=== PATIENT | male | born 1960 | race American Indian/Alaskan Native ===

== ENCOUNTER 2020-01-07 06:05 | Emergency (ER) | payer MEDICARE ==
[2020-01-07 07:07] LABS: Bilirubin,Urine NEG (Negative); Blood,Urine SM (Negative); Color,Urine Straw (Yellow); Urobilinogen,Urine < 2.0 mg/dL (<2.0)
[2020-01-07 07:08] LABS: Mucus,Urine FEW /HPF; WBC,Urine < 1.0 /HPF (0.0-6.0)
--- NOTE | 2020-01-07 07:51 | Emergency Department Report ---
ED Male HPI - General Chief complaint: Urogenital-Male Stated complaint: URINE RETENTION Time Seen by Provider: 01/07/20 07:46 Source: patient, EMS Mode of arrival: Stretcher Limitations: Physical Limitation - History of Present Illness Initial comments: 59-year-old male presents to ED with difficulty urinating. Patient states this began earlier this month. Patient reports he was told that he has some chronic kidney disease at [place]. Patient denies decrease in urine output, however reports that he is having difficulty with actual urination. He reports that his bladder gets full, but he has to force the urine out. Patient has not had complete urinary retention yet. -: week(s) (3) Severity: moderate Consistency: intermittent Improves with: none Worsens with: urination denies other symptoms - Related Data Previous Rx's Medication Instructions Recorded Last Taken Type Tamsulosin [Flomax] 0.4 mg PO QDAY #30 cap 01/07/20 Unknown Rx Allergies Allergy/AdvReac Type Severity Reaction Status Date / Time No Known Allergies Allergy Verified 01/07/20 06:27 ED Review of Systems ROS: Stated complaint: URINE RETENTION Other details as noted in HPI Comment: All other systems reviewed and negative Constitutional: denies: chills, fever Gastrointestinal: denies: abdominal pain Genitourinary: other (Reports difficulty urinating) ED Past Medical Hx - Past Medical History Previous Medical History?: Yes Hx Hypertension: Yes Hx CVA: Yes (left sided weakness) Hx Renal Disease: Yes (not on dialyisis) - Surgical History Past Surgical History?: Yes Hx Open Heart Surgery: Yes (double bypass) - Social History Smoking Status: Current Every Day Smoker Substance Use Type: Alcohol, Marijuana - Medications Home Medications: Home Medications Medication Instructions Recorded Confirmed Last Taken Type Tamsulosin [Flomax] 0.4 mg PO QDAY #30 cap 01/07/20 Unknown Rx ED Physical Exam - General Limitations: Physical Limitation ED Course Vital Signs 01/07/20 01/07/20 01/07/20 06:18 06:33 06:45 Temperature 98.7 F Pulse Rate 71 62 Respiratory 18 18 19 Rate Blood Pressure 186/104 189/95 O2 Sat by Pulse 97 100 98 Oximetry 01/07/20 01/07/20 01/07/20 06:47 07:00 07:15 Temperature Pulse Rate 58 L 61 Respiratory 16 18 20 Rate Blood Pressure 187/94 194/98 O2 Sat by Pulse 100 99 99 Oximetry 01/07/20 01/07/20 07:31 07:45 Temperature Pulse Rate 66 62 Respiratory 23 22 Rate Blood Pressure 177/98 186/97 O2 Sat by Pulse 100 91 Oximetry ED Medical Decision Making - Medical Decision Making 59-year-old male with likely an enlarged prostate. Patient does not have full urinary retention, however has some difficulty initiating urine stream. Negative for any evidence of UTI. Patient given prescription for Flomax. Urology follow-up advised. Return precautions given. - Differential Diagnosis BPH, UTI Critical care attestation.: If time is entered above; I have spent that time in minutes in the direct care of this critically ill patient, excluding procedure time. ED Disposition Clinical Impression: Enlarged prostate with urinary obstruction Disposition: TO HOME OR SELFCARE Is pt being admited?: No Condition: Stable Instructions: Urinary Retention in Men (ED), Benign Prostatic Hypertrophy (ED) Prescriptions: Tamsulosin [Flomax] 0.4 mg PO QDAY #30 cap Referrals: ALANNA WRAY MD [Primary Care Provider] - 3-5 Days TERRY PAULINO MD [Staff Physician] - 3-5 Days [facility] [Provider Group] - 3-5 Days Time of Disposition: 07:51
[2020-01-07 08:05] VITALS: BP 186/97
== END 2020-01-07 08:20 | disposition home or self-care (01) ==
LOC: ED 06:05
DX: N40.0 Benign prostatic hyperplasia without lower urinary tract symptoms (principal); I10 Essential (primary) hypertension; F17.200 Nicotine dependence, unspecified, uncomplicated; F12.10 Cannabis abuse, uncomplicated; Z86.73 Personal history of transient ischemic attack (TIA), and cerebral infarction without residual deficits; Z87.448 Personal history of other diseases of urinary system; Z98.890 Other specified postprocedural states; Z79.899 Other long term (current) drug therapy
CPT/HCPCS: 81001

== ENCOUNTER 2020-03-21 16:35 | Emergency (ER) | payer MEDICARE ==
--- NOTE | 2020-03-21 17:24 | Emergency Department Report ---
ED General Adult HPI - General Chief complaint: Urogenital-Male Stated complaint: LEFT BUTTOCK DECUBITIS ULCER Time Seen by Provider: 03/21/20 17:01 Source: patient, EMS Mode of arrival: Stretcher Limitations: Physical Limitation - History of Present Illness Initial comments: 59-year-old male with a past medical history of CVA with residual left-sided w eakness, hypertension, and chronic renal insufficiency presents to the hospital with several complaints. Complaint #1 swelling to left inguinal area, complaint #2: Bleeding from buttock wound, and complaint #3 cough x3 days Complaint #1 left inguinal swelling Patient has noticed swelling to his left suprapubic area for the past 3 days that has been progressively worsening. Pain worsens with movement of the left leg. He denies fever, nausea, vomiting, abdominal pain, or constipation. No history of trauma. No dysuria Complaint #2 bleeding from buttocks wound Today sister noted that there was blood on her toilet seat after the patient used the bathroom. She looked at his buttock area and noticed a wound. Patient denies melena, hematochezia, blood in the toilet bowl, or hematuria. He also denies pain but has decreased sensation on the left side secondary to previous CVA. He does report a previous history of GI bleed Complaint #3 cough x3 days Patient complains of what he describes as a mild nonproductive cough for the last 3 days with some chest congestion. Denies shortness of breath, chest pain, loss of sense of taste or smell or fever. - Related Data Previous Rx's Medication Instructions Recorded Last Taken Type Tamsulosin [Flomax] 0.4 mg PO QDAY #30 cap 01/07/20 Unknown Rx Bacitracin Zinc Oint [Antibiotic 1 applicatio TP BID #1 tube 03/21/20 Unknown Rx Oint] Benzonatate [Tessalon Perles] 100 mg PO Q8HR PRN #20 capsule 03/21/20 Unknown Rx Allergies Allergy/AdvReac Type Severity Reaction Status Date / Time No Known Allergies Allergy Verified 03/21/20 16:58 ED Review of Systems ROS: Stated complaint: LEFT BUTTOCK DECUBITIS ULCER Other details as noted in HPI Comment: All other systems reviewed and negative ED Past Medical Hx - Past Medical History Previous Medical History?: Yes Hx Hypertension: Yes Hx CVA: Yes (left sided weakness) Hx Renal Disease: Yes (not on dialyisis) - Surgical History Past Surgical History?: Yes Hx Open Heart Surgery: Yes (double bypass) Additional Surgical History: Thoracic aortic stent graft in place in the aortic arch and descending thoracic. aorta. - Social History Smoking Status: Current Every Day Smoker Substance Use Type: None - Medications Home Medications: Home Medications Medication Instructions Recorded Confirmed Last Taken Type Tamsulosin [Flomax] 0.4 mg PO QDAY #30 cap 01/07/20 Unknown Rx Bacitracin Zinc Oint [Antibiotic 1 applicatio TP BID #1 tube 03/21/20 Unknown Rx Oint] Benzonatate [Tessalon Perles] 100 mg PO Q8HR PRN #20 capsule 03/21/20 Unknown Rx ED Physical Exam - General Limitations: Physical Limitation - Other Other exam information: General: No acute distress Head: Atraumatic Eyes: normal appearance ENT: Moist mucous membranes Neck: Normal appearance, no midline tenderness Chest: Clear to auscultation bilaterally CV: Regular rate and rhythm Abdomen: Soft, normal bowel sounds, nontender, nondistended, no rebound or guarding. Swelling to left suprapubic area which represents a direct inguinal hernia that is easily reducible when patient is lying supine. : No testicular tenderness, swelling, or penile pain Rectal: Guaiac negative brown stool without gross blood or melena Back: Normal inspection Extremity: Normal inspection, full range of motion Neuro: Alert O x 3, no facial asymmetry, speech clear, left-sided 4/5 weakness compared to right Psych: Appropriate behavior Skin: Left buttock skin tag that is inflamed without active bleeding. No surrounding erythema or warmth ED Course Vital Signs 03/21/20 03/21/20 03/21/20 16:40 17:30 18:30 Temperature 99 F Pulse Rate 85 Respiratory 16 Rate Blood Pressure 172/95 157/85 156/89 O2 Sat by Pulse 99 99 99 Oximetry ED Medical Decision Making - Radiology Data Radiology results: report reviewed CHEST 1 VIEW 03/21/2020 5:27 PM INDICATION / CLINICAL INFORMATION: cough. COMPARISON: None available. FINDINGS: SUPPORT DEVICES: Thoracic aortic stent graft in place in the aortic arch and descending thoracic aorta. HEART / MEDIASTINUM: No significant abnormality. LUNGS / PLEURA: No significant pulmonary or pleural abnormality. No pneumothorax. ADDITIONAL FINDINGS: No significant additional findings. IMPRESSION: 1. No acute findings. - Medical Decision Making Patient presents to the hospital with bleeding from left buttock wound which appears to be an inflamed skin tag. No decubitus ulcer or open wounds seen on examination. No active bleeding during examination. Patient does not complain of signs or symptoms of GI bleed nor does he have signs of GI bleed on digital rectal exam. Patient has a easily reducible left inguinal hernia and outpatient follow-up will be recommended. Patient has a mild cough without findings of pneumonia on x-ray, cough medicine prescribed as needed and outpatient follow-up recommended. Critical Care Time: No Critical care attestation.: If time is entered above; I have spent that time in minutes in the direct care of this critically ill patient, excluding procedure time. ED Disposition Clinical Impression: Inflamed skin tag, Left inguinal hernia, URI (upper respiratory infection) Disposition: TO HOME OR SELFCARE Is pt being admited?: No Does the pt Need Aspirin: No Condition: Stable Instructions: Upper Respiratory Infection (ED), Inguinal Hernia (ED), Acute Wound Care (ED) Additional Instructions: You may put a dressing on your skin tag in order to protect it from further irritation and bleeding. I recommend you follow-up with a coil strapper for further evaluation of the skin lesion and possible removal. You may also apply bacitracin to the wound with wound dressing changes. Follow-up with a general surgeon for evaluation of any inguinal hernia and to discuss surgical options for repair. Follow-up with your primary care doctor for further evaluation of your cold/URI symptoms Prescriptions: Bacitracin Zinc Oint [Antibiotic Oint] 1 applicatio TP BID #1 tube Benzonatate [Tessalon Perles] 100 mg PO Q8HR PRN #20 capsule PRN Reason: Cough Referrals: PRIMARY CAREMD [Primary Care Provider] - 3-5 Days KYLAH LABOY MD [Staff Physician] - 3-5 Days SHELIA LENTZ MD [Staff Physician] - 3-5 Days (Dermatology) DAVID REED MD [Referring] - 3-5 Days (Dermatology) Time of Disposition: 18:22
--- NOTE | 2020-03-21 17:55 | XRay Report ---
CHEST 1 VIEW 03/21/2020 5:27 PM INDICATION / CLINICAL INFORMATION: cough. COMPARISON: None available. FINDINGS: SUPPORT DEVICES: Thoracic aortic stent graft in place in the aortic arch and descending thoracic aort a. HEART / MEDIASTINUM: No significant abnormality. LUNGS / PLEURA: No significant pulmonary or pleural abnormality. No pneumothorax. ADDITIONAL FINDINGS: No significant additional findings. IMPRESSION: 1. No acute findings. Signer Name: Francisco Javier Bojorquez MD Signed: 03/21/2020 5:51 PM Workstation Name: [id number]
[2020-03-21 18:42] VITALS: BP 156/89
== END 2020-03-21 18:57 | disposition home or self-care (01) ==
LOC: ED 16:35
DX: L91.8 Other hypertrophic disorders of the skin (principal); K40.90 Unilateral inguinal hernia, without obstruction or gangrene, not specified as recurrent; J06.9 Acute upper respiratory infection, unspecified; I10 Essential (primary) hypertension; F17.200 Nicotine dependence, unspecified, uncomplicated; Z86.73 Personal history of transient ischemic attack (TIA), and cerebral infarction without residual deficits; Z98.890 Other specified postprocedural states; Z79.899 Other long term (current) drug therapy
CPT/HCPCS: 71045; 82271

== ENCOUNTER 2021-12-19 20:44 | Observation (INO) | payer MEDICARE ==
--- NOTE | 2021-12-19 21:59 | Emergency Department Report ---
HPI - General Chief Complaint: Medical Clearance Time Seen by Provider: 12/19/21 21:16 - HPI HPI: Room 5 The patient is a 61-year-old male present with chief complaint of missed dialysis. Patient is a resident at [facility] and normally receives dialysis every Sunday. The patient is not certain the last time he received dialysis but believes it was this past Sunday (3 days ago). Staff at the patient's senior living [facility] states that the patient missed 2 dialysis sessions and was concerned and sent the patient to the ED. Patient is not sure why he did not receive dialysis but denies complaints currently stating "I am feeling good." ED Past Medical Hx - Past Medical History Previous Medical History?: Yes Hx Hypertension: Yes Hx CVA: Yes (left sided weakness) Hx Diabetes: Yes Hx Renal Disease: Yes (ESRD, HD q. MWF) - Surgical History Hx Open Heart Surgery: Yes (double bypass) Additional Surgical History: Thoracic aortic stent graft in place in the aortic arch and descending thoracic. aorta. Right chest Vas-Cath - Family History Family history: no significant - Social History Smoking Status: Former Smoker (None x6-months) Substance Use Type: None - Medications Home Medications: Home Medications Medication Instructions Recorded Confirmed Last Taken Type Tamsulosin [Flomax] 0.4 mg PO QDAY #30 cap 01/07/20 Unknown Rx Bacitracin Zinc Oint [Antibiotic 1 applicatio TP BID #1 tube 03/21/20 Unknown Rx Oint] Benzonatate [Tessalon Perles] 100 mg PO Q8HR PRN #20 capsule 03/21/20 Unknown Rx ED Review of Systems ROS: Stated complaint: NEEDS DIALYSIS MISSED X 2 Other details as noted in HPI Constitutional: no symptoms reported Eyes: denies: eye pain ENT: denies: throat pain Respiratory: no symptoms reported Cardiovascular: denies: chest pain Endocrine: no symptoms reported Gastrointestinal: denies: abdominal pain Genitourinary: denies: testicular pain Musculoskeletal: denies: back pain Neurological: denies: headache Physical Exam - Physical Exam Vital Signs: Vital Signs 12/19/21 12/19/21 20:49 21:30 Temperature 98.2 F Pulse Rate 84 Respiratory 16 20 Rate Blood Pressure 185/95 [Right] O2 Sat by Pulse 100 98 Oximetry Physical Exam: GENERAL: The patient is well-developed well-nourished male lying on stretcher not appearing to be in acute distress. [] HEENT: Normocephalic. Atraumatic. Extraocular motions are intact. Patient has moist mucous membranes. NECK: Supple. Trachea midline CHEST/LUNGS: Clear to auscultation. There is no respiratory distress noted. HEART/CARDIOVASCULAR: Regular. There is no tachycardia. There is no gallop rub or murmur. ABDOMEN: Abdomen is soft, nontender. Patient has normal bowel sounds. There is no abdominal distention. SKIN: There is no rash. There is no edema. There is no diaphoresis. NEURO: The patient is awake, alert, and oriented. The patient is cooperative. The patient has no focal neurologic deficits. The patient has normal speech. GCS 15 MUSCULOSKELETAL: There is no evidence of acute injury. ED Course Vital Signs 12/19/21 12/19/21 20:49 21:30 Temperature 98.2 F Pulse Rate 84 Respiratory 16 20 Rate Blood Pressure 185/95 [Right] O2 Sat by Pulse 100 98 Oximetry - Consultations Consultation #1: 12/19/21 22:48 Nephrology paged 12/19/21 23:04 Case discussed with adjustment clerk Dr. East-will arrange for hemodialysis in the morning ED Medical Decision Making - Lab Data Result diagrams: 12/19/21 21:53 12/19/21 21:53 Laboratory Tests 12/19/21 12/19/21 12/19/21 21:53 21:53 21:53 WBC 5.8 RBC 3.23 L Hgb 10.5 L Hct 33.1 L MCV 102 H MCH 33 H MCHC 32 RDW 18.7 H Plt Count 176 Lymph % (Auto) 14.1 Wagoner % (Auto) 9.0 H Eos % (Auto) 11.9 H Baso % (Auto) 1.3 Lymph # (Auto) 0.8 L [place]er # (Auto) 0.5 Eos # (Auto) 0.7 H Baso # (Auto) 0.1 Seg Neutrophils % 63.7 Seg Neutrophils # 3.7 VBG pH 7.351 Sodium 144 Potassium 5.4 H Chloride 103.2 Carbon Dioxide 23 Anion Gap 23 BUN 104 H Creatinine 9.9 H Estimated GFR 7 BUN/Creatinine Ratio 11 Glucose 108 H Calcium 9.4 - EKG Data -: EKG Interpreted by Fl EKG shows normal: sinus rhythm Rate: normal - EKG Data When compared to previous EKG there are: previous EKG unavailable Interpretation: LVH - Radiology Data Radiology results: report reviewed (Chest x-ray), image reviewed (Chest x-ray) [facility] [address] [place] [address] XRay Report Signed Patient: YOHANA COSTA MR#: [id number] : 1960 Acct:[id number] Age/Sex: 61 / M ADM Date: 12/19/21 Loc: ED Attending Dr: Ordering Physician: VANNESSA HOLCOMB MD Date of Service: 12/19/21 Procedure(s): XR chest 1V ap Accession Number(s): [id number] cc: VANNESSA HOLCOMB MD Fluoro Time In Minutes: CHEST 1 VIEW 12/19/2021 9:14 PM INDICATION / CLINICAL INFORMATION: Missed dialysis. COMPARISON: 03/21/20. FINDINGS: SUPPORT DEVICES: There is a right jugular CVL with the tip overlying the upper cavoatrial junction. HEART / MEDIASTINUM: Median sternotomy. Borderline heart size with a left ventricular configuration. Stent graft in the descending thoracic aorta is unchanged. LUNGS / PLEURA: Possible minimal interstitial lung disease in the right perihilar region and lower lung. The left lung is clear. No definite pleural effusion. No pneumothorax. ADDITIONAL FINDINGS: Mild elevation of the right hemidiaphragm is a new finding. IMPRESSION: 1. Possible minimal interstitial edema on the right. 2. Mildly elevated right hemidiaphragm is a new finding. Signer Name: Angel Luis Mayfield MD Signed: 12/19/2021 10:19 PM Workstation Name: [id number] Transcribed By: RT Dictated By: Angel Luis Mayfield MD Electronically Authenticated By: Angel Luis Mayfield MD Signed Date/Time: 12/19/212218 DD/ 16 TD/TT: - Differential Diagnosis Missed hemodialysis, hyperkalemia, volume overload, uremia Critical care attestation.: If time is entered above; I have spent that time in minutes in the direct care of this critically ill patient, excluding procedure time. ED Disposition Clinical Impression: ESRD needing dialysis, Hyperkalemia, Uremia Disposition: 09 ADMITTED INPATIENT Is pt being admited?: Yes Does the pt Need Aspirin: No Condition: Fair Time of Disposition: 23:11 (Care transferred to hospitalist (Dr. Mariano))
--- NOTE | 2021-12-19 22:23 | XRay Report ---
CHEST 1 VIEW 12/19/2021 9:14 PM INDICATION / CLINICAL INFORMATION: Missed dialysis. COMPARISON: 03/21/20. FINDINGS: SUPPORT DEVICES: There is a right jugular CVL with the tip overlying the upper cavoatrial junction. HEART / MEDIASTINUM: Median sternotomy. Borderline heart size with a left ventricular configuration. Stent graft in the descending thoracic aorta is unchanged. LUNGS / PLEURA: Possible minimal interstitial lung disease in the right perihilar region and lower teresa ng. The left lung is clear. No definite pleural effusion. No pneumothorax. ADDITIONAL FINDINGS: Mild elevation of the right hemidiaphragm is a new finding. IMPRESSION: 1. Possible minimal interstitial edema on the right. 2. Mildly elevated right hemidiaphragm is a new finding. Signer Name: Angel Luis Mayfield MD Signed: 12/19/2021 10:19 PM Workstation Name: [id number]
[2021-12-19 22:27] LABS: Basophils # (Auto) 0.1 K/mm3 (0.0-0.1); Basophils % (Auto) 1.3 % (0.0-1.8); Eosinophils # (Auto) 0.7 K/mm3 (0.0-0.4); Eosinophils % (Auto) 11.9 % (0.0-4.3); Hematocrit 33.1 % (35.5-45.6); Hemoglobin 10.5 gm/dl (11.8-15.2); Lymphocytes # (Auto) 0.8 K/mm3 (1.2-5.4); Lymphocytes % (Auto) 14.1 % (13.4-35.0); Mean Corpuscular HGB Conc 32 % (32-34); Mean Corpuscular Volume 102 fl (84-94); Monocytes # (Auto) 0.5 K/mm3 (0.0-0.8); Platelet Count 176 K/mm3 (140-440); Red Blood Count 3.23 M/mm3 (3.65-5.03); Red Cell Distribution Width 18.7 % (13.2-15.2)
[2021-12-19 22:32] LABS: Calcium 9.4 mg/dL (8.4-10.2)
[2021-12-19] MEDS ORDERED: SODIUM POLYSTYRENE 15 GM/60 ML ORAL LIQD PO ONE (23:10)
[2021-12-20] MEDS ORDERED: ONDANSETRON 4 MG/2 ML INJ IV PRN (00:47)
[2021-12-20] MEDS ORDERED: MORPHINE 2 MG/1 ML INJ IV PRN (00:47)
[2021-12-20] MEDS ORDERED: MAGNESIUM HYDROXIDE (MOM) ORAL LIQD UDC PO PRN (00:47)
[2021-12-20] MEDS ORDERED: ACETAMINOPHEN 325 MG TAB PO PRN (00:47)
[2021-12-20] MEDS ORDERED: DEXTROSE 50% IN WATER (25GM) 50 ML SYRINGE IV PRN (00:47)
[2021-12-20] MEDS ORDERED: MORPHINE 4 MG/1 ML INJ IV PRN (00:47)
--- NOTE | 2021-12-20 00:56 | History and Physical Report ---
History of Present Illness Date of examination: 12/20/21 Date of admission: 12/20/2021 Chief complaint: End-stage renal diseasemissing dialysis History of present illness: 61-year-old -[place] male with known history of end-stage renal disease on dialysisMondays, Wednesdays and Fridays, hypertension and diabetes mellitus presenting to the emergency room today because he has missed 2 sessions of dialysis. Patient is a resident of [facility]. He was sent to the ER for evaluation because he has missed his dialysis sessions. Denies any major complaints today. Work-up in the emergency room today reveals potassium of 5.4, BUN of 104 and creatinine of 9.9. Chest x-ray reveals possible minimal interstitial edema on the right. Mildly el evated right hemidiaphragm is a new finding. Belt Buckle Maker on-call has been consulted for possible dialysis in the a.m. Past History Past Medical History: CAD, diabetes, dialysis (On Mondays, Wednesdays and Fridays), ESRD, hypertension, stroke (Left-sided weakness) Past Surgical History: CABG, Other (horacic aortic stent graft in place in the aortic arch and descending thoracic. aorta. Right chest Vas-Cath) Social history: smoking (Former smoker) Family history: no significant family history Medications and Allergies Allergies Allergy/AdvReac Type Severity Reaction Status Date / Time No Known Allergies Allergy Verified 03/21/20 16:58 Home Medications Medication Instructions Recorded Confirmed Last Taken Type Tamsulosin [Flomax] 0.4 mg PO QDAY #30 cap 01/07/20 Unknown Rx Bacitracin Zinc Oint [Antibiotic 1 applicatio TP BID #1 tube 03/21/20 Unknown Rx Oint] Benzonatate [Tessalon Perles] 100 mg PO Q8HR PRN #20 capsule 03/21/20 Unknown Rx Active Meds: Active Medications Acetaminophen (Acetaminophen 325 Mg Tab) 650 mg PO Q4H PRN PRN Reason: Pain MILD(1-3)/Fever >100.5/ESQUIVEL Dextrose (Dextrose 50% In Water (25gm) 50 Ml Syringe) 50 ml IV Q30MIN PRN; Protocol PRN Reason: Hypoglycemia Dextrose (Dextrose 50% In Water (25gm) 50 Ml Syringe) 50 ml IV Q30MIN PRN; Protocol PRN Reason: Hypoglycemia Heparin Sodium (Porcine) (Heparin 5,000 Unit/1 Ml Vial) 5,000 unit SUB-Q Q8HR CA Insulin Human Lispro (Insulin Lispro 100 Unit/Ml) 0 unit SUB-Q ACHS CA; Protocol Magnesium Hydroxide (Magnesium Hydroxide (Mom) Oral Liqd Udc) 30 ml PO Q4H PRN PRN Reason: Constipation Morphine Sulfate (Morphine 2 Mg/1 Ml Inj) 2 mg IV Q4H PRN PRN Reason: Pain, Moderate (4-6) Morphine Sulfate (Morphine 4 Mg/1 Ml Inj) 4 mg IV Q4H PRN PRN Reason: Pain , Severe (7-10) Ondansetron HCl (Ondansetron 4 Mg/2 Ml Inj) 4 mg IV Q8H PRN PRN Reason: Nausea And Vomiting Sodium Chloride (Sodium Chloride 0.9% 10 Ml Flush Syringe) 10 ml IV BID CA Sodium Chloride (Sodium Chloride 0.9% 10 Ml Flush Syringe) 10 ml IV PRN PRN PRN Reason: LINE FLUSH Review of Systems Constitutional: no fever, no chills Ears, nose, mouth and throat: no nasal congestion, no sore throat Cardiovascular: no chest pain, no palpitations Respiratory: no cough, no shortness of breath Gastrointestinal: no abdominal pain, no nausea, no diarrhea, no BRBPR, no melena Genitourinary Male: no dysuria, no hematuria, no flank pain Musculoskeletal: no neck pain, no low back pain Integumentary: no rash, no pruritis Neurological: no headaches, no confusion Psychiatric: no anxiety, no depression Endocrine: no polyphagia, no polydipsia, no polyuria, no nocturia Exam - Constitutional Vitals: Temp Pulse Resp BP Pulse Ox 98.2 F 76 28 H 140/74 100 12/19/21 20:49 12/20/21 00:46 12/20/21 00:46 12/20/21 00:46 12/19/21 21:30 General appearance: Present: no acute distress, well-nourished - EENT Eyes: Present: PERRL, EOM intact. Absent: scleral icterus ENT: hearing intact, clear oral mucosa, dentition normal - Neck Neck: Present: supple, normal ROM - Respiratory Respiratory effort: normal Respiratory: bilateral: diminished - Cardiovascular Rhythm: regular (Vas-Cath on right anterior chest wall) Heart Sounds: Present: S1 & S2. Absent: gallop, systolic murmur, diastolic murmur, rub, click - Extremities Extremities: no ischemia, pulses intact, pulses symmetrical, No edema, normal temperature, Full ROM Extremity abnormal: other (Hyperpigmentation of skin over lower extremities, skin appears dry) Peripheral Pulses: within normal limits - Abdominal General gastrointestinal: Present: soft, non-tender, non-distended, normal bowel sounds. Absent: mass - Integumentary Integumentary: Present: clear, warm, dry, normal turgor. Absent: rash - Musculoskeletal Musculoskeletal: strength equal bilaterally - Psychiatric Psychiatric: appropriate mood/affect, intact judgment & insight, memory intact, cooperative - Neurologic Neurologic: CNII-XII intact, focal deficits, moves all extremities Results - Labs CBC & Chem 7: 12/19/21 21:53 12/19/21 21:53 Labs: Abnormal lab results 12/19/21 12/19/21 Range/Units 21:53 21:53 RBC 3.23 L (3.65-5.03) M/mm3 Hgb 10.5 L (11.8-15.2) gm/dl Hct 33.1 L (35.5-45.6) % MCV 102 H (84-94) fl MCH 33 H (28-32) pg RDW 18.7 H (13.2-15.2) % Morton % (Auto) 9.0 H (0.0-7.3) % Eos % (Auto) 11.9 H (0.0-4.3) % Lymph # (Auto) 0.8 L (1.2-5.4) K/mm3 Eos # (Auto) 0.7 H (0.0-0.4) K/mm3 Potassium 5.4 H (3.6-5.0) mmol/L BUN 104 H (9-20) mg/dL Creatinine 9.9 H (0.8-1.3) mg/dL Glucose 108 H (75-100) mg/dL Assessment and Plan Assessment: 1. End-stage renal disease on dialysis. 2. Noncompliance with dialysis. 3. Diabetes mellitus 4. Hypertension 5. History of CVA with residual left-sided hemiparesis 6. Uremia Plan: 1. Patient admitted and placed on telemetry 2. Patient will be scheduled for dialysis in the a.m. 3. Belt Buckle Maker consulted for further evaluation and recommendations. 4. Patient placed on sliding scale insulin. We will monitor Accu-Cheks. 5. We will resume routine home medications. DVT prophylaxis: Subcutaneous heparin CODE STATUS: Full code
[2021-12-20] MEDS ORDERED: SODIUM CHLORIDE 0.9% 100 ML IV PRN (06:36)
[2021-12-20] MEDS: HEPARIN 5,000 UNIT/1 ML VIAL SUB-Q SCH ×2 (06:48→13:21)
[2021-12-20] MEDS: INSULIN LISPRO 100 UNIT/ML SUB-Q SCH ×3 (08:25→17:28)
[2021-12-20] MEDS ORDERED: FAMOTIDINE 10 MG TAB PO SCH (11:00)
[2021-12-20 11:04] LABS: Hepatitis B Surface Antigen Non-Reactive (Negative); Hepatitis C Virus Antibody Non-Reactive (NonReactive)
--- NOTE | 2021-12-20 12:02 | Discharge Summary ---
Providers - Providers Date of Admission: 12/20/21 00:47 Date of discharge: 12/20/21 Attending physician: RACHELE CHOUDHURY 12/20/21 00:47 Consult to Dietitian/Nutrition [CONS] Routine Physician Instructions: Reason For Exam: Reason for Consult: Diet education Consult to Physician [CONS] Routine Comment: Consulting Provider: ESTEFANY TILLEY Physician Instructions: Reason For Exam: ESRD- Needing dialysis 12/20/21 11:30 Physical Therapy Evaluation and Treat [CONS] Routine Comment: PT eval and treat Reason For Exam: debillity 12/20/21 11:31 Occupational Therapy Evaluate and Treat [CONS] Routine Comment: OT eval and treat Reason For Exam: bebility Primary care physician: [employer] Hospitalization Reason for admission: Missed HD Condition: Fair Hospital course: 61-year-old -Mongolian male with known history of end-stage renal disease on dialysisMondays, Wednesdays and Fridays, hypertension and diabetes mellitus presenting to the emergency room today because he has missed 2 sessions of dialysis. Patient is a resident of [facility]. He was sent to the ER for evaluation because he has missed his dialysis sessions. Denies any major complaints today. Work-up in the emergency room today reveals potassium of 5.4, BUN of 104 and creatinine of 9.9. Chest x-ray reveals possible minimal interstitial edema on the right. Patient is to undergo hemodialysis today and after hemodialysis will be discharged back to [facility]. Dedicated discharge time 32 minutes Disposition: 01 HOME / SELF CARE / HOMELESS Final Discharge Diagnosis (Prints w/discharge instructions): ESRD, noncompliance with dialysis, diabetes mellitus type 2, hypertension, history of CVA Core Measure Documentation - Palliative Care Palliative Care/ Comfort Measures: Not Applicable - Core Measures Any of the following diagnoses?: none Exam - Constitutional Vitals: Temp Pulse Resp BP Pulse Ox 97.3 F L 96 H 22 168/87 98 12/20/21 08:39 12/20/21 11:38 12/20/21 11:38 12/20/21 08:39 12/20/21 11:38 General appearance: Present: no acute distress, well-nourished - EENT Eyes: Present: PERRL ENT: hearing intact, clear oral mucosa - Neck Neck: Present: supple, normal ROM - Respiratory Respiratory effort: normal Respiratory: bilateral: CTA - Cardiovascular Heart Sounds: Present: S1 & S2. Absent: rub, click - Extremities Extremities: pulses symmetrical, No edema Peripheral Pulses: within normal limits - Abdominal General gastrointestinal: Present: soft, non-tender, non-distended, normal bowel sounds Male genitourinary: Present: normal - Integumentary Integumentary: Present: clear, warm, dry - Musculoskeletal Musculoskeletal: gait normal, strength equal bilaterally - Psychiatric Psychiatric: appropriate mood/affect, intact judgment & insight - Neurologic Neurologic: CNII-XII intact, moves all extremities Plan Activity: advance as tolerated Weight Bearing Status: Weight Bear as Tolerated Diet: renal Follow up with: PRIMARY CARE, [Primary Care Provider] - 7 Days
--- NOTE | 2021-12-20 12:24 | Consultation ---
History of Present Illness - Reason for Consult end stage renal disease - History of Present Illness 61-year-old pleasant -[place] male with a past medical history of end- stage renal disease in the setting of hypertension who was brought in from his alf facility secondary to weakness and fatigue in the setting of missed dialysis treatments. Per patient there has been issues with transportation from alf to the dialysis unit. He has been on dialysis now for the past 6 months and he dialyzes via a right upper internal jugular permacath. Patient typically dialyzes on a Sunday schedule. He has not had dialysis in over a week. Plan for dialysis today. Past History Past Medical History: CAD, diabetes, dialysis (On Mondays, Wednesdays and Fridays), ESRD, hypertension, stroke (Left-sided weakness) Past Surgical History: CABG, Other (horacic aortic stent graft in place in the aortic arch and descending thoracic. aorta. Right chest Vas-Cath) Social history: smoking (Former smoker) Family history: no significant family history Medications and Allergies Allergies Allergy/AdvReac Type Severity Reaction Status Date / Time No Known Allergies Allergy Verified 03/21/20 16:58 Home Medications Medication Instructions Recorded Confirmed Last Taken Type Tamsulosin [Flomax] 0.4 mg PO QDAY #30 cap 01/07/20 Unknown Rx Bacitracin Zinc Oint [Antibiotic 1 applicatio TP BID #1 tube 03/21/20 Unknown Rx Oint] Benzonatate [Tessalon Perles] 100 mg PO Q8HR PRN #20 capsule 03/21/20 Unknown Rx Active Meds: Active Medications Acetaminophen (Acetaminophen 325 Mg Tab) 650 mg PO Q4H PRN PRN Reason: Pain MILD(1-3)/Fever >100.5/ESQUIVEL Dextrose (Dextrose 50% In Water (25gm) 50 Ml Syringe) 50 ml IV Q30MIN PRN; Protocol PRN Reason: Hypoglycemia Famotidine (Famotidine 10 Mg Tab) 10 mg PO BID [facility] Last Admin: 12/20/21 11:18 Dose: 10 mg Heparin Sodium (Porcine) (Heparin 5,000 Unit/1 Ml Vial) 5,000 unit SUB-Q Q8HR [facility] Last Admin: 12/20/21 06:48 Dose: 5,000 unit Sodium Chloride (Nacl 0.9%) 100 mls @ 999 mls/hr IV JUANITO PRN PRN Reason: Hypotension Insulin Human Lispro (Insulin Lispro 100 Unit/Ml) 0 unit SUB-Q ACHS CA; Protocol Last Admin: 12/20/21 08:25 Dose: Not Given Magnesium Hydroxide (Magnesium Hydroxide (Mom) Oral Liqd Udc) 30 ml PO Q4H PRN PRN Reason: Constipation Last Admin: 12/20/21 03:32 Dose: 30 ml Morphine Sulfate (Morphine 2 Mg/1 Ml Inj) 2 mg IV Q4H PRN PRN Reason: Pain, Moderate (4-6) Last Admin: 12/20/21 03:32 Dose: 2 mg Morphine Sulfate (Morphine 4 Mg/1 Ml Inj) 4 mg IV Q4H PRN PRN Reason: Pain , Severe (7-10) Ondansetron HCl (Ondansetron 4 Mg/2 Ml Inj) 4 mg IV Q8H PRN PRN Reason: Nausea And Vomiting Last Admin: 12/20/21 03:32 Dose: 4 mg Sodium Chloride (Sodium Chloride 0.9% 10 Ml Flush Syringe) 10 ml IV BID [facility] Last Admin: 12/20/21 11:18 Dose: 10 ml Sodium Chloride (Sodium Chloride 0.9% 10 Ml Flush Syringe) 10 ml IV PRN PRN PRN Reason: LINE FLUSH Review of Systems All systems: negative Constitutional: fatigue, weakness Exam - Vital Signs Vital signs: Vital Signs Temp Pulse Resp BP Pulse Ox 98.2 F 84 16 185/95 100 12/19/21 20:49 12/19/21 20:49 12/19/21 20:49 12/19/21 20:49 12/19/21 20:49 - General Appearance General appearance: well-developed, appears stated age EENT: ATNC Neck: Present: neck supple Respiratory: Clear to Ascultation Heart: regular Gastrointestinal: Present: normal Neurologic: no focal deficit Musculoskeletal: Present: deferred Results - Lab Results 12/19/21 21:53 12/19/21 21:53 Most recent lab results Calcium 9.4 mg/dL (8.4-10.2) 12/19/21 21:53 Assessment and Plan - Patient Problems (1) Hyperkalemia Current Visit: Yes Status: Acute Plan to address problem: we will correct with hemodialysis at this time. Counseled patient importance of maintaining a low potassium diet. (2) ESRD needing dialysis Current Visit: Yes Status: Chronic Plan to address problem: orders written for dialysis today. If patient is still here tomorrow we will plan to dialyze him again so that patient can be back on his regular outpatient schedule. (3) Hypertensive chronic kidney disease with stage 5 chronic kidney disease or end stage renal disease Current Visit: Yes Status: Chronic Plan to address problem: monitor blood pressure on the current regimen.
[2021-12-20 17:32] VITALS: BP 142/82
[2021-12-20] MEDS ORDERED: FAMOTIDINE 20 MG TAB PO SCH (22:00)
--- NOTE | 2021-12-22 18:07 | Electrocardiograph Report ---
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
== END 2021-12-20 20:05 ==
LOC: ED 20:44 → 4A 12-20 00:47 → INTOOBSV 12-20 00:47 → 4A 12-20 01:35
PROVIDERS: ADMIT Internal Medicine Geriatric Medicine; ATTEND Hospitalist
DX: I12.0 Hypertensive chronic kidney disease with stage 5 chronic kidney disease or end stage renal disease (principal); N18.6 End stage renal disease; E11.22 Type 2 diabetes mellitus with diabetic chronic kidney disease; I25.10 Atherosclerotic heart disease of native coronary artery without angina pectoris; M62.81 Muscle weakness (generalized); E87.5 Hyperkalemia; Z99.2 Dependence on renal dialysis; Z86.73 Personal history of transient ischemic attack (TIA), and cerebral infarction without residual deficits; Z95.1 Presence of aortocoronary bypass graft; Z87.891 Personal history of nicotine dependence; Z79.4 Long term (current) use of insulin; Z79.899 Other long term (current) drug therapy; Z98.890 Other specified postprocedural states
CPT/HCPCS: 36415; 71045; 80048; 80074; 82805; 82962; 85025; 93005; 96372; 96374; 96375; 99285; G0257; G0378; J1644; J2270; J2405

== ENCOUNTER 2022-01-11 09:16 | Inpatient (IN) | payer MEDICARE ==
[2022-01-11] MEDS ORDERED: SODIUM CHLORIDE 0.9% 1000 ML 1,000 ML IV ONE (09:35)
[2022-01-11] MEDS ORDERED: PANTOPRAZOLE 40 MG INJ IV ONE (09:35)
--- NOTE | 2022-01-11 10:23 | XRay Report ---
CHEST 1 VIEW 01/11/2022 9:09 AM INDICATION / CLINICAL INFORMATION: GI Bleed. COMPARISON: 12/19/2021 FINDINGS: SUPPORT DEVICES: Stable positioning of the right IJ permacath HEART / MEDIASTINUM: Stable cardiomegaly. Stable appearance of the thoracic aortic stent. LUNGS / PLEURA: No significant pulmonary or pleural abnormality. No pneumothorax. ADDITIONAL FINDINGS: No significant additional findings. IMPRESSION: 1. No acute findings. Stable mild cardiomegaly. Signer Name: Redd Jules Jr, MD Signed: 01/11/2022 10:19 AM Workstation Name: [id number]
[2022-01-11 11:27] LABS: Basophils % (Auto) 0.6 % (0.0-1.8); Eosinophils # (Auto) 0.4 K/mm3 (0.0-0.4); Eosinophils % (Auto) 7.5 % (0.0-4.3); Hematocrit 27.8 % (35.5-45.6); Hemoglobin 9.1 gm/dl (11.8-15.2); Lymphocytes # (Auto) 1.1 K/mm3 (1.2-5.4); Lymphocytes % (Auto) 18.4 % (13.4-35.0); Mean Corpuscular HGB Conc 33 % (32-34); Mean Corpuscular Volume 100 fl (84-94); Monocytes # (Auto) 0.7 K/mm3 (0.0-0.8); Monocytes % (Auto) 12.4 % (0.0-7.3); Platelet Count 133 K/mm3 (140-440); Red Blood Count 2.78 M/mm3 (3.65-5.03); Red Cell Distribution Width 18.2 % (13.2-15.2)
[2022-01-11 11:35] LABS: INR 1.13 (0.87-1.13)
[2022-01-11 11:47] LABS: Albumin 3.7 g/dL (3.9-5); Calcium 8.5 mg/dL (8.4-10.2)
--- NOTE | 2022-01-11 13:19 | Emergency Department Report ---
ED General Adult HPI - General Chief complaint: GI Bleed Stated complaint: RECTAL BLEEDING Time Seen by Provider: 01/11/22 09:29 Source: patient, EMS Mode of arrival: Stretcher Limitations: No Limitations - History of Present Illness Initial comments: PT ARRIVING FROM [facility] FOR RECTAL BLEEDING SINCE THIS MORNING. -: Gradual, hour(s) Improves with: none, immobilization Associated Symptoms: denies: denies other symptoms, confusion, chest pain, nausea/vomiting - Related Data Previous Rx's Medication Instructions Recorded Last Taken Type Tamsulosin [Flomax] 0.4 mg PO QDAY #30 cap 01/07/20 Unknown Rx Bacitracin Zinc Oint [Antibiotic 1 applicatio TP BID #1 tube 03/21/20 Unknown Rx Oint] Benzonatate [Tessalon Perles] 100 mg PO Q8HR PRN #20 capsule 03/21/20 Unknown Rx Allergies Allergy/AdvReac Type Severity Reaction Status Date / Time No Known Allergies Allergy Verified 01/11/22 09:20 ED Review of Systems ROS: Stated complaint: RECTAL BLEEDING Other details as noted in HPI Constitutional: denies: chills, fever Eyes: denies: eye pain, eye discharge, vision change ENT: denies: ear pain, throat pain Respiratory: denies: cough, shortness of breath, wheezing Cardiovascular: denies: chest pain, palpitations Endocrine: no symptoms reported Gastrointestinal: denies: abdominal pain, nausea, diarrhea Genitourinary: denies: urgency, dysuria Musculoskeletal: denies: back pain, joint swelling, arthralgia Skin: denies: rash, lesions Neurological: denies: headache, weakness, paresthesias Psychiatric: denies: anxiety, depression Hematological/Lymphatic: denies: easy bleeding, easy bruising ED Past Medical Hx - Past Medical History Hx Hypertension: Yes Hx CVA: Yes (left sided weakness) Hx Diabetes: Yes Hx Renal Disease: Yes (ESRD, HD q. MWF) - Surgical History Hx Open Heart Surgery: Yes (double bypass) Additional Surgical History: Thoracic aortic stent graft in place in the aortic arch and descending thoracic. aorta. Right chest Vas-Cath - Social History Smoking Status: Former Smoker - Medications Home Medications: Home Medications Medication Instructions Recorded Confirmed Last Taken Type Tamsulosin [Flomax] 0.4 mg PO QDAY #30 cap 01/07/20 Unknown Rx Bacitracin Zinc Oint [Antibiotic 1 applicatio TP BID #1 tube 03/21/20 Unknown Rx Oint] Benzonatate [Tessalon Perles] 100 mg PO Q8HR PRN #20 capsule 03/21/20 Unknown Rx ED Physical Exam - General Limitations: No Limitations General appearance: alert, in no apparent distress - Head Head exam: Present: atraumatic, normocephalic - Eye Eye exam: Present: normal appearance - ENT ENT exam: Present: mucous membranes moist - Neck Neck exam: Present: normal inspection - Respiratory Respiratory exam: Present: normal lung sounds bilaterally. Absent: respiratory distress - Cardiovascular Cardiovascular Exam: Present: regular rate, normal rhythm. Absent: systolic murmur, diastolic murmur, rubs, gallop - Rectal Rectal exam: Present: heme (+) stool, hemorrhoids - Extremities Exam Extremities exam: Present: normal inspection - Back Exam Back exam: Present: normal inspection - Neurological Exam Neurological exam: Present: alert, oriented X3 - Psychiatric Psychiatric exam: Present: normal affect, normal mood - Skin Skin exam: Present: warm, dry, intact, normal color. Absent: rash ED Course Vital Signs 01/11/22 01/11/22 01/11/22 09:17 09:29 09:30 Temperature 98.4 F Pulse Rate 90 76 73 Respiratory 14 31 H 26 H Rate Blood Pressure 110/69 Blood Pressure 124/80 [Left] O2 Sat by Pulse 96 100 100 Oximetry 01/11/22 01/11/22 01/11/22 09:35 10:00 10:30 Temperature 99 F Pulse Rate 78 76 Respiratory 26 H 31 H Rate Blood Pressure 107/60 118/55 Blood Pressure [Left] O2 Sat by Pulse 100 100 100 Oximetry 01/11/22 01/11/22 01/11/22 11:00 11:30 12:00 Temperature Pulse Rate 69 71 73 Respiratory 24 26 H 26 H Rate Blood Pressure 122/65 125/60 113/58 Blood Pressure [Left] O2 Sat by Pulse 99 98 100 Oximetry ED Medical Decision Making - Lab Data Result diagrams: 01/11/22 09:58 01/11/22 09:58 - EKG Data -: EKG Interpreted by Sd EKG shows normal: sinus rhythm - EKG Data Interpretation: other (LBBB) - Radiology Data Radiology results: image reviewed - Medical Decision Making vss , no active bleeding , PPI started . will dmit forGI consult Critical care attestation.: If time is entered above; I have spent that time in minutes in the direct care of this critically ill patient, excluding procedure time. ED Disposition Clinical Impression: Lower GI bleed, Hematochezia, ESRD needing dialysis Disposition: 09 ADMITTED INPATIENT Is pt being admited?: No Condition: Stable
[2022-01-11 14:05] LABS: Hematocrit 24.6 % (35.5-45.6); Hemoglobin 7.8 gm/dl (11.8-15.2); Mean Corpuscular HGB Conc 32 % (32-34); Mean Corpuscular Volume 101 fl (84-94); Platelet Count 131 K/mm3 (140-440); Red Blood Count 2.44 M/mm3 (3.65-5.03); Red Cell Distribution Width 18.1 % (13.2-15.2)
--- NOTE | 2022-01-11 14:41 | Cat Scan Report ---
CT ABDOMEN AND PELVIS WITH CONTRAST INDICATION / CLINICAL INFORMATION: pain. TECHNIQUE: Axial CT images were obtained through the abdomen and pelvis after IV contrast. All CT sc ans at this location are performed using CT dose reduction for ALARA by means of automated exposure c ontrol. COMPARISON: None available. FINDINGS: LOWER CHEST: Moderate bibasilar emphysema LIVER: No significant abnormality. GALLBLADDER: No significant abnormality. BILE DUCTS: Multiple calcified gallstones. PANCREAS: No significant abnormality. SPLEEN: No significant abnormality. ADRENALS: No significant abnormality. RIGHT KIDNEY / URETER: Mild diffuse atrophy. LEFT KIDNEY / URETER: Mild diffuse atrophy. STOMACH / SMALL BOWEL: No significant abnormality. COLON: No significant abnormality. APPENDIX: No significant abnormality. PERITONEUM: No free fluid. No free air. No fluid collection. LYMPH NODES: No significant adenopathy. VASCULAR STRUCTURES: Previous placement of thoracic stent graft. Residual dissection below the level of the graft where the thoracic aorta has a maximum dimension of approximately 5.9 cm. The dissection extends into the abdominal aorta. The celiac axis arises from the false lumen. The SMA arises from t he true lumen and demonstrates occlusion with reconstitution from the celiac axis. Diameter of the ao rta at the level of the SMA is 4.7 cm. The dissection extends into both common and proximal external iliac arteries. 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 IVC filter noted. URINARY BLADDER: No significant abnormality. REPRODUCTIVE ORGANS: No significant abnormality. ADDITIONAL FINDINGS: None. SKELETAL SYSTEM: No significant abnormality. IMPRESSION: 1. Previous placement of thoracic aortic stent graft. Dissection involving the thoracic aorta, abdomi nal aorta, SMA, common iliac arteries and external iliac arteries. 2. 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 Correlation with t he patient's clinical history would be helpful. 3. Gallstones. Signer Name: Rakan Bravo MD Signed: 01/11/2022 2:37 PM Workstation Name: [id number]
--- NOTE | 2022-01-11 14:57 | History and Physical Report ---
History of Present Illness Date of examination: 01/11/22 Date of admission: 01/11/22 Chief complaint: Lower GI bleed since a.m. History of present illness: 61-year-old -Swazi male with history of end-stage renal disease, hypertension and BPH and diabetes comes in for lower GI bleed since a.m. patient had 2 episodes of lower GI bleed. One was moderate and the second 1 is very small. Black stools. No abdominal pain. No exacerbating or relieving factors. Patient apparently took NSAIDs for couple days. Family history - Past Medical History --Hypertension: Yes --Diabetes: Yes --Renal Disease: Yes (ESRD, HD q. MWF) - Surgical History --Open Heart Surgery: Yes (double bypass) -- Thoracic aortic stent graft in place in the aortic arch and descending thoracic aorta. Right chest Vas-Cath - Social History --Smoking Status: Former Smoker -Family history --Htn Review of Systems ROS: Stated complaint: RECTAL BLEEDING Other details as noted in HPI Constitutional: denies: chills, fever Eyes: denies: eye pain, eye discharge, vision change ENT: denies: ear pain, throat pain Respiratory: denies: cough, shortness of breath, wheezing Cardiovascular: denies: chest pain, palpitations Endocrine: no symptoms reported Gastrointestinal: denies: abdominal pain, nausea, diarrhea Genitourinary: denies: urgency, dysuria Musculoskeletal: denies: back pain, joint swelling, arthralgia Skin: denies: rash, lesions Neurological: denies: headache, weakness, paresthesias Psychiatric: denies: anxiety, depression Hematological/Lymphatic: denies: easy bleeding, easy bruising Medications and Allergies Allergies Allergy/AdvReac Type Severity Reaction Status Date / Time No Known Allergies Allergy Verified 01/11/22 09:20 Home Medications Medication Instructions Recorded Confirmed Last Taken Type Tamsulosin [Flomax] 0.4 mg PO QDAY #30 cap 01/07/20 Unknown Rx Bacitracin Zinc Oint [Antibiotic 1 applicatio TP BID #1 tube 03/21/20 Unknown Rx Oint] Benzonatate [Tessalon Perles] 100 mg PO Q8HR PRN #20 capsule 03/21/20 Unknown Rx Exam - Constitutional Vitals: Temp Pulse Resp BP Pulse Ox 99 F 75 13 116/64 100 01/11/22 09:35 01/11/22 14:20 01/11/22 14:20 01/11/22 13:30 01/11/22 13:30 General appearance: Present: no acute distress, well-nourished - EENT Eyes: Present: PERRL ENT: hearing intact, clear oral mucosa - Neck Neck: Present: supple, normal ROM - Respiratory Respiratory effort: normal Respiratory: bilateral: CTA - Cardiovascular Heart rate: 78 Rhythm: regular Heart Sounds: Present: S1 & S2. Absent: rub, click - Extremities Extremities: no ischemia, pulses intact, pulses symmetrical, No edema Peripheral Pulses: within normal limits - Abdominal General gastrointestinal: Present: soft, non-tender, non-distended, normal bowel sounds Male genitourinary: Present: normal - Rectal Rectal Exam: stool dark (Occult blood positive) - Integumentary Integumentary: Present: clear, warm, dry - Musculoskeletal Musculoskeletal: gait normal, strength equal bilaterally - Psychiatric Psychiatric: appropriate mood/affect, intact judgment & insight - Neurologic Neurologic: CNII-XII intact, moves all extremities Results - Labs CBC & Chem 7: 01/11/22 13:02 01/11/22 09:58 Labs: Laboratory Last Values WBC 6.7 K/mm3 (4.5-11.0) 01/11/22 13:02 RBC 2.44 M/mm3 (3.65-5.03) L 01/11/22 13:02 Hgb 7.8 gm/dl (11.8-15.2) L 01/11/22 13:02 Hct 24.6 % (35.5-45.6) L 01/11/22 13:02 MCV 101 fl (84-94) H 01/11/22 13:02 MCH 32 pg (28-32) 01/11/22 13:02 MCHC 32 % (32-34) 01/11/22 13:02 RDW 18.1 % (13.2-15.2) H 01/11/22 13:02 Plt Count 131 K/mm3 (140-440) L 01/11/22 13:02 Lymph % (Auto) 18.4 % (13.4-35.0) 01/11/22 09:58 Banks % (Auto) Combination Saw Operator 01/11/22 13:02 Eos % (Auto) 7.5 % (0.0-4.3) H 01/11/22 09:58 Baso % (Auto) 0.6 % (0.0-1.8) 01/11/22 09:58 Lymph # (Auto) 1.1 K/mm3 (1.2-5.4) L 01/11/22 09:58 Banks # (Auto) 0.7 K/mm3 (0.0-0.8) 01/11/22 09:58 Eos # (Auto) 0.4 K/mm3 (0.0-0.4) 01/11/22 09:58 Baso # (Auto) 0.0 K/mm3 (0.0-0.1) 01/11/22 09:58 Seg Neutrophils % 61.1 % (40.0-70.0) 01/11/22 09:58 Seg Neutrophils # 3.6 K/mm3 (1.8-7.7) 01/11/22 09:58 PT 15.8 Sec. (12.2-14.9) H 01/11/22 09:58 INR 1.13 (0.87-1.13) 01/11/22 09:58 Sodium 140 mmol/L (137-145) 01/11/22 09:58 Potassium 4.6 mmol/L (3.6-5.0) 01/11/22 09:58 Chloride 100.8 mmol/L (98-107) 01/11/22 09:58 Carbon Dioxide 26 mmol/L (22-30) 01/11/22 09:58 Anion Gap 18 mmol/L 01/11/22 09:58 BUN 65 mg/dL (9-20) H 01/11/22 09:58 Creatinine 8.5 mg/dL (0.8-1.3) H 01/11/22 09:58 Estimated GFR 8 ml/min 01/11/22 09:58 BUN/Creatinine Ratio 8 % 01/11/22 09:58 Glucose 138 mg/dL (75-100) H 01/11/22 09:58 Calcium 8.5 mg/dL (8.4-10.2) 01/11/22 09:58 Magnesium 2.20 mg/dL (1.7-2.3) 01/11/22 09:58 Total Bilirubin 0.20 mg/dL (0.1-1.2) 01/11/22 09:58 AST 16 units/L (5-40) 01/11/22 09:58 ALT 11 units/L (7-56) 01/11/22 09:58 Alkaline Phosphatase 55 units/L (35-129) 01/11/22 09:58 Total Protein 6.3 g/dL (6.3-8.2) 01/11/22 09:58 Albumin 3.7 g/dL (3.9-5) L 01/11/22 09:58 Albumin/Globulin Ratio 1.4 % 01/11/22 09:58 Lipase 19 units/L (13-60) 01/11/22 09:58 Short CBC 01/11/22 01/11/22 Range/Units 09:58 13:02 WBC 5.8 6.7 (4.5-11.0) K/mm3 Hgb 9.1 L 7.8 L (11.8-15.2) gm/dl Hct 27.8 L 24.6 L (35.5-45.6) % Plt Count 133 L 131 L (140-440) K/mm3 BMP 01/11/22 09:58 Sodium 140 Potassium 4.6 Chloride 100.8 Carbon Dioxide 26 BUN 65 H Creatinine 8.5 H Glucose 138 H Calcium 8.5 Liver Function 01/11/22 Range/Units 09:58 Total Bilirubin 0.20 (0.1-1.2) mg/dL AST 16 (5-40) units/L ALT 11 (7-56) units/L Alkaline Phosphatase 55 (35-129) units/L Albumin 3.7 L (3.9-5) g/dL - Imaging and Cardiology Chest x-ray: report reviewed CT scan - abdomen: report reviewed Imaging and Cardiology: Chest x-ray No acute findings Abdominal/pelvis CAT scan Previous placement of thoracic stent graft. Pneumonia Dissection involving the thoracic aorta. Abdominal aorta SMA, common iliac arteries and Iliac arteries. 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 Correlation with the patient's clinical history would be helpful. Gallstones. Assessment and Plan Advance Directives: Yes (Full code) VTE prophylaxis?: Chemical Plan of care discussed with patient/family: Yes - Patient Problems (1) Lower GI bleed Current Visit: Yes Status: Acute Plan to address problem: Possibly from the upper GI tract secondary to NSAIDs. GI consult Hemoglobin and hematocrit every 8 hours Transfuse if necessary. Hemoglobin is at 7.8. We will hold off transfusion. But monitor hemoglobin and hematocrit and 8 hourly basis. (2) ESRD needing dialysis Current Visit: Yes Status: Chronic Plan to address problem: Patient is on Sunday and Sunday hemodialysis schedule Due for hemodialysis today (3) HTN (hypertension) Current Visit: Yes Status: Chronic Qualifiers: Hypertension type: primary hypertension Qualified Code(s): I10 - Essential (primary) hypertension Plan to address problem: Cont antihypertensives and adjust medications (4) BPH (benign prostatic hyperplasia) Current Visit: Yes Status: Chronic Qualifiers: Lower urinary tract symptom presence: symptoms present Plan to address problem: Continue tamsulosin
[2022-01-11 15:16] LABS: Band Neutrophils # (Manual) 0.1 K/mm3; Basophils % (Manual) 0 % (0.0-1.8); Total Cells Counted 100
[2022-01-11 15:18] LABS: Hypochromasia 2+; Macrocytosis 1+; Platelet Estimate Consistent w Auto
[2022-01-11] MEDS ORDERED: MORPHINE 2 MG/1 ML INJ IV PRN (15:30)
[2022-01-11] MEDS ORDERED: HYDROmorphone 0.5 MG/0.5 ML INJ IV PRN (15:30)
--- NOTE | 2022-01-11 16:18 | Consultation ---
History of Present Illness - Reason for Consult Consult date: 01/11/22 Aortic Dissection with Previous Repair Requesting physician: KANDACE SORTO - History of Present Illness The patient is a 61-year-old male with history of end-stage renal disease and an aortic dissection that he states was repaired approximately 3 years ago at [facility]. He presents with complaints of rectal bleeding. He states the bleeding started today and he has had no previous episodes of bleeding. He denies any abdominal pain or rectal pain. He denies any trauma to the area. He denies any nausea or vomiting or any recent surgical procedures. He has been on dialysis for approximately 5 years previously performed through a left arm arteriovenous access however that failed and he is now on hemodialysis through a right internal jugular permacath that he states he has had for approximately 2 years. He has no additional complaints at this time. Past History Past Medical History: CAD, dialysis, ESRD, other (Aortic dissection, BPH) Past Surgical History: CABG, Other (Arteriovenous access left upper extremity, aortic thoracic endograft for dissection) Social history: no significant social history Family history: no significant family history Medications and Allergies Allergies Allergy/AdvReac Type Severity Reaction Status Date / Time No Known Allergies Allergy Verified 01/11/22 09:20 Home Medications Medication Instructions Recorded Confirmed Last Taken Type Tamsulosin [Flomax] 0.4 mg PO QDAY #30 cap 01/07/20 Unknown Rx Bacitracin Zinc Oint [Antibiotic 1 applicatio TP BID #1 tube 03/21/20 Unknown Rx Oint] Benzonatate [Tessalon Perles] 100 mg PO Q8HR PRN #20 capsule 03/21/20 Unknown Rx Active Meds: Active Medications Acetaminophen (Acetaminophen 325 Mg Tab) 650 mg PO Q4H PRN PRN Reason: Pain MILD(1-3)/Fever >100.5/ESQUIVEL Hydromorphone HCl (Hydromorphone 0.5 Mg/0.5 Ml Inj) 0.5 mg IV Q3H PRN PRN Reason: Pain , Severe (7-10) Sodium Chloride (Nacl 0.9% 1000 Ml) 1,000 mls @ 42 mls/hr IV DIRECT CA Insulin Human Lispro (Insulin Lispro 100 Unit/Ml) 0 unit SUB-Q Q6H CA; Protocol Morphine Sulfate (Morphine 2 Mg/1 Ml Inj) 2 mg IV Q4H PRN PRN Reason: Pain, Moderate (4-6) Ondansetron HCl (Ondansetron 4 Mg/2 Ml Inj) 4 mg IV Q8H PRN PRN Reason: Nausea And Vomiting Sodium Chloride (Sodium Chloride 0.9% 10 Ml Flush Syringe) 10 ml IV BID CA Sodium Chloride (Sodium Chloride 0.9% 10 Ml Flush Syringe) 10 ml IV PRN PRN PRN Reason: LINE FLUSH Review of Systems All systems: negative Exam - Constitutional Vitals: Temp Pulse Resp BP Pulse Ox 99 F 75 13 116/64 100 01/11/22 09:35 01/11/22 14:20 01/11/22 14:20 01/11/22 13:30 01/11/22 13:30 General appearance: Present: no acute distress - Neck Neck: Present: supple, other (Right internal jugular permacath is free of overt signs of infection) - Respiratory Respiratory effort: normal - Cardiovascular Rhythm: regular - Extremities Extremities: abnormal (Slightly contracted left lower extremity, weakness left upper extremity) - Abdominal General gastrointestinal: Present: soft, non-tender, non-distended, other (Mid line infraumbilical incision is well-healed) Male genitourinary: Present: deferred - Rectal Rectal Exam: other (Patient has a significant amount of melanotic stool) Results - Labs CBC & Chem 7: 01/11/22 13:02 01/11/22 09:58 Labs: Abnormal lab results 01/11/22 01/11/22 01/11/22 Range/Units 09:58 09:58 09:58 RBC 2.78 L (3.65-5.03) M/mm3 Hgb 9.1 L (11.8-15.2) gm/dl Hct 27.8 L (35.5-45.6) % MCV 100 H (84-94) fl MCH 33 H (28-32) pg RDW 18.2 H (13.2-15.2) % Plt Count 133 L (140-440) K/mm3 [place] % (Auto) 12.4 H (0.0-7.3) % Eos % (Auto) 7.5 H (0.0-4.3) % Lymph # (Auto) 1.1 L (1.2-5.4) K/mm3 Seg Neuts % (Manual) (40.0-70.0) % Lymphocytes % (Manual) (13.4-35.0) % Eosinophils % (Manual) (0.0-4.3) % Lymphocytes # (Manual) (1.2-5.4) K/mm3 Eosinophils # (Manual) (0.0-0.4) K/mm3 PT 15.8 H (12.2-14.9) Sec. BUN 65 H (9-20) mg/dL Creatinine 8.5 H (0.8-1.3) mg/dL Glucose 138 H (75-100) mg/dL Albumin 3.7 L (3.9-5) g/dL 01/11/22 Range/Units 13:02 RBC 2.44 L (3.65-5.03) M/mm3 Hgb 7.8 L (11.8-15.2) gm/dl Hct 24.6 L (35.5-45.6) % MCV 101 H (84-94) fl MCH (28-32) pg RDW 18.1 H (13.2-15.2) % Plt Count 131 L (140-440) K/mm3 [place] % (Auto) (0.0-7.3) % Eos % (Auto) (0.0-4.3) % Lymph # (Auto) (1.2-5.4) K/mm3 Seg Neuts % (Manual) 76.0 H (40.0-70.0) % Lymphocytes % (Manual) 7.0 L (13.4-35.0) % Eosinophils % (Manual) 11.0 H (0.0-4.3) % Lymphocytes # (Manual) 0.5 L (1.2-5.4) K/mm3 Eosinophils # (Manual) 0.7 H (0.0-0.4) K/mm3 PT (12.2-14.9) Sec. BUN (9-20) mg/dL Creatinine (0.8-1.3) mg/dL Glucose (75-100) mg/dL Albumin (3.9-5) g/dL - Imaging and Cardiology CT scan - abdomen: image reviewed CT scan - pelvis: image reviewed Assessment and Plan The patient is a 61-year-old male with a history of aortic dissection and stent graft repair approximately 3 years ago at [facility]. He presents with melena indicating he likely has an upper GI source of bleeding. I reviewed the CTA of his abdomen pelvis which demonstrates a patent thoracic endograft that terminates in the mid descending aorta. He has a dissection in the remainder of his or aorta that extends into bilateral common iliac arteries as well as into the left common femoral artery. 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 There is either a short segment occlusion or severe stenosis of the SMA with distal reconstitution. 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 Recommend GI consult for EGD and possible intervention. If GI is unable to adequately treat the source of bleeding, the patient is not a goo candidate for endovascular intervention as his anatomy would make treat extremely difficult, if not impossible. Would recommend transfer to tertiary center for definitive treatment if GI is unable to treat.
[2022-01-11] MEDS: INSULIN LISPRO 100 UNIT/ML SUB-Q SCH ×2 (17:14→21:57)
[2022-01-11 18:49] LABS: Hematocrit 22.2 % (35.5-45.6); Hemoglobin 7.1 gm/dl (11.8-15.2)
[2022-01-11] MEDS ORDERED: POLYETHYLENE GLYCOL/ELECT SOLN 4000 ML PO ONE (19:36)
--- NOTE | 2022-01-11 19:36 | Gastroenterology Consultation ---
History of Present Illness - Reason for Consult Consult date: 01/11/22 GI bleed Requesting physician: KANDACE SORTO - History of Present Illness This is a 61-year-old male with history of ESRD on dialysis, aortic dissection status postrepair presenting from care home for rectal bleeding. GI consulted for evaluation for GI bleeding. Patient is unable to give full history but does note having episodes of dark red bloody stool x2 today. Also notes having black stool as well. Denies any abdominal pain. No nausea or vomiting. States that he had colonoscopy which was done at [place] about 2 3 years ago. He does not remember the results. No prior history of GI bleeding. Per record he has history of NSAID use. Medication list reviewed. Past History Past Medical History: CAD, dialysis, ESRD, other (Aortic dissection, BPH) Past Surgical History: CABG, Other (Arteriovenous access left upper extremity, aortic thoracic endograft for dissection) Social history: no significant social history Family history: no significant family history Medications and Allergies Allergies Allergy/AdvReac Type Severity Reaction Status Date / Time No Known Allergies Allergy Verified 01/11/22 09:20 Home Medications Medication Instructions Recorded Confirmed Last Taken Type Tamsulosin [Flomax] 0.4 mg PO QDAY #30 cap 01/07/20 Unknown Rx Bacitracin Zinc Oint [Antibiotic 1 applicatio TP BID #1 tube 03/21/20 Unknown Rx Oint] Benzonatate [Tessalon Perles] 100 mg PO Q8HR PRN #20 capsule 03/21/20 Unknown Rx Active Meds: Active Medications Acetaminophen (Acetaminophen 325 Mg Tab) 650 mg PO Q4H PRN PRN Reason: Pain MILD(1-3)/Fever >100.5/ESQUIVEL Hydromorphone HCl (Hydromorphone 0.5 Mg/0.5 Ml Inj) 0.5 mg IV Q3H PRN PRN Reason: Pain , Severe (7-10) Sodium Chloride (Nacl 0.9% 1000 Ml) 1,000 mls @ 42 mls/hr IV DIRECT CA Insulin Human Lispro (Insulin Lispro 100 Unit/Ml) 0 unit SUB-Q Q6H CA; Protocol Last Admin: 01/11/22 17:14 Dose: Not Given Morphine Sulfate (Morphine 2 Mg/1 Ml Inj) 2 mg IV Q4H PRN PRN Reason: Pain, Moderate (4-6) Ondansetron HCl (Ondansetron 4 Mg/2 Ml Inj) 4 mg IV Q8H PRN PRN Reason: Nausea And Vomiting Sodium Chloride (Sodium Chloride 0.9% 10 Ml Flush Syringe) 10 ml IV BID CA Sodium Chloride (Sodium Chloride 0.9% 10 Ml Flush Syringe) 10 ml IV PRN PRN PRN Reason: LINE FLUSH Review of Systems - Review of Systems All systems: negative Constitutional: no weight loss, no fever Eyes: no change in vision Cardiovascular: no chest pain Gastrointestinal: melena, hematochezia, no abdominal pain, no nausea, no vomiting Neurological: weakness Psychiatric: no anxiety Endocrine: no cold intolerance Hematologic/Lymphatic: no easy bruising Allergic/Immunologic: no wheezing Exam - Constitutional Vital Signs: Temp Pulse Resp BP Pulse Ox 99 F 66 22 129/61 100 01/11/22 09:35 01/11/22 18:30 01/11/22 18:30 01/11/22 18:30 01/11/22 18:30 General appearance: no acute distress - EENT Eyes: EOM intact ENT: hearing intact - Neck Neck: supple - Respiratory Respiratory effort: normal - Cardiovascular Rhythm: regular Heart Sounds: Present: S1 & S2 - Gastrointestinal General gastrointestinal: Present: soft, non-tender, non-distended - Integumentary Integumentary: Present: clear, warm - Psychiatric Psychiatric: appropriate mood/affect - Labs CBC & Chem 7: 01/11/22 18:43 01/11/22 09:58 Lab Results: Laboratory Results - last 24 hr 01/11/22 01/11/22 01/11/22 09:58 09:58 09:58 WBC 5.8 RBC 2.78 L Hgb 9.1 L Hct 27.8 L MCV 100 H MCH 33 H MCHC 33 RDW 18.2 H Plt Count 133 L Lymph % (Auto) 18.4 [place] % (Auto) 12.4 H Eos % (Auto) 7.5 H Baso % (Auto) 0.6 Lymph # (Auto) 1.1 L [place] # (Auto) 0.7 Eos # (Auto) 0.4 Baso # (Auto) 0.0 Add Manual Diff Total Counted Seg Neutrophils % 61.1 Seg Neuts % (Manual) Band Neutrophils % Lymphocytes % (Manual) Reactive Lymphs % (Man) Monocytes % (Manual) Eosinophils % (Manual) Basophils % (Manual) Metamyelocytes % Myelocytes % Promyelocytes % Blast Cells % Nucleated RBC % Seg Neutrophils # 3.6 Seg Neutrophils # Man Band Neutrophils # Lymphocytes # (Manual) Abs React Lymphs (Man) Monocytes # (Manual) Eosinophils # (Manual) Basophils # (Manual) Metamyelocytes # Myelocytes # Promyelocytes # Blast Cells # WBC Morphology Hypersegmented Neuts Hyposegmented Neuts Hypogranular Neuts Smudge Cells Toxic Granulation Toxic Vacuolation Dohle Bodies Pelger-Huet Anomaly Heri Rods Platelet Estimate Clumped Platelets Plt Clumps, EDTA Large Platelets Giant Platelets Platelet Satelliting Plt Morphology Comment RBC Morphology Dimorphic RBCs Polychromasia Hypochromasia Poikilocytosis Anisocytosis Microcytosis Macrocytosis Spherocytes Pappenheimer Bodies Sickle Cells Target Cells Tear Drop Cells Ovalocytes Helmet Cells Phelps-Sundance Bodies Shelby Rings Arianna Cells Bite Cells Crenated Cell Elliptocytes Acanthocytes (Spur) Rouleaux Hemoglobin C Crystals Schistocytes Malaria parasites Jose Antonio Bodies Hem Pathologist Commnt PT 15.8 H INR 1.13 Sodium 140 Potassium 4.6 Chloride 100.8 Carbon Dioxide 26 Anion Gap 18 BUN 65 H Creatinine 8.5 H Estimated GFR 8 BUN/Creatinine Ratio 8 Glucose 138 H Calcium 8.5 Magnesium 2.20 Total Bilirubin 0.20 AST 16 ALT 11 Alkaline Phosphatase 55 Total Protein 6.3 Albumin 3.7 L Albumin/Globulin Ratio 1.4 Lipase 19 01/11/22 01/11/22 13:02 18:43 WBC 6.7 RBC 2.44 L Hgb 7.8 L 7.1 L Hct 24.6 L 22.2 L MCV 101 H MCH 32 MCHC 32 RDW 18.1 H Plt Count 131 L Lymph % (Auto) [place] % (Auto) Parking Line Painter Eos % (Auto) Baso % (Auto) Lymph # (Auto) [place] # (Auto) Eos # (Auto) Baso # (Auto) Add Manual Diff Complete Total Counted 100 Seg Neutrophils % Seg Neuts % (Manual) 76.0 H Band Neutrophils % 1.0 Lymphocytes % (Manual) 7.0 L Reactive Lymphs % (Man) 0 Monocytes % (Manual) 5.0 Eosinophils % (Manual) 11.0 H Basophils % (Manual) 0 Metamyelocytes % 0 Myelocytes % 0 Promyelocytes % 0 Blast Cells % 0 Nucleated RBC % Not Reportable Seg Neutrophils # Seg Neutrophils # Man 5.1 Band Neutrophils # 0.1 Lymphocytes # (Manual) 0.5 L Abs React Lymphs (Man) 0.0 Monocytes # (Manual) 0.3 Eosinophils # (Manual) 0.7 H Basophils # (Manual) 0.0 Metamyelocytes # 0.0 Myelocytes # 0.0 Promyelocytes # 0.0 Blast Cells # 0.0 WBC Morphology Not Reportable Hypersegmented Neuts Not Reportable Hyposegmented Neuts Not Reportable Hypogranular Neuts Not Reportable Smudge Cells Not Reportable Toxic Granulation Not Reportable Toxic Vacuolation Not Reportable Dohle Bodies Not Reportable Pelger-Huet Anomaly Not Reportable Heri Rods Not Reportable Platelet Estimate Consistent w auto Clumped Platelets Not Reportable Plt Clumps, EDTA Not Reportable Large Platelets Not Reportable Giant Platelets Not Reportable Platelet Satelliting Not Reportable Plt Morphology Comment Not Reportable RBC Morphology Not Reportable Dimorphic RBCs Not Reportable Polychromasia Not Reportable Hypochromasia 2+ Poikilocytosis Not Reportable Anisocytosis Not Reportable Microcytosis Not Reportable Macrocytosis 1+ Spherocytes Not Reportable Pappenheimer Bodies Not Reportable Sickle Cells Not Reportable Target Cells Not Reportable Tear Drop Cells Not Reportable Ovalocytes Not Reportable Helmet Cells Not Reportable Phelps-Sundance Bodies Not Reportable Shelby Rings Not Reportable Arianna Cells Not Reportable Bite Cells Not Reportable Crenated Cell Not Reportable Elliptocytes Not Reportable Acanthocytes (Spur) Not Reportable Rouleaux Not Reportable Hemoglobin C Crystals Not Reportable Schistocytes Not Reportable Malaria parasites Not Reportable Jose Antonio Bodies Not Reportable Hem Pathologist Commnt No PT INR Sodium Potassium Chloride Carbon Dioxide Anion Gap BUN Creatinine Estimated GFR BUN/Creatinine Ratio Glucose Calcium Magnesium Total Bilirubin AST ALT Alkaline Phosphatase Total Protein Albumin Albumin/Globulin Ratio Lipase Assessment and Plan # Rectal bleeding # Melena -Suspect more lower GI bleed including diverticular bleed versus polyp bleeding versus malignancy. Cannot rule out upper GI bleed source -Hemodynamically stable. -Hemoglobin trended down to 7 range. rec -We will plan for EGD/colonoscopy tomorrow. -Monitor H&H and transfuse as needed with hemoglobin goal above 7. -Recommend PPI with Protonix IV twice daily. -Recommend clear liquid diet and n.p.o. after midnight. -GoLytely prep. - Patient Problems (1) Hematochezia Current Visit: Yes Status: Acute (2) Lower GI bleed Current Visit: Yes Status: Acute
--- NOTE | 2022-01-11 19:56 | Event Note ---
Date: 01/11/22 EDMD EJ IV note Requested by nurse to place IV as patient's EJ IV was pulled out. 20-gauge IV was placed in the right external jugular by myself after sterile prep. IV secured in place with sterile dressing overlying. No complications
[2022-01-11] MEDS: SODIUM CHLORIDE 0.9% 1000 ML 1,000 ML IV SCH (21:57)
[2022-01-11] MEDS: PANTOPRAZOLE 40 MG INJ IV SCH (21:57)
[2022-01-11 23:51] LABS: Hematocrit 23.6 % (35.5-45.6); Hemoglobin 7.6 gm/dl (11.8-15.2)
[2022-01-12] MEDS: INSULIN LISPRO 100 UNIT/ML SUB-Q SCH ×4 (05:37→22:20)
--- NOTE | 2022-01-12 09:54 | Electrocardiograph Report ---
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
--- NOTE | 2022-01-12 10:26 | Consultation ---
History of Present Illness - Reason for Consult Consult date: 01/12/22 end stage renal disease Requesting physician: KANDACE SORTO - History of Present Illness 59-year-old male with a history of end-stage renal disease on hemodialysis at a Dialysis clinic at [place]. Patient does not know the name of the clinic nor the name of his morphologist. He says he got dialysis yesterday. Presents on account of bright red blood in his stools. Patient had 2 episodes yesterday one was a moderate sized one small. Patient also had black stools. He denies any abdominal pain. No recent trauma and no recent surgery. No nausea or vomiting. He did take NSAIDs for a couple of days prior to the onset of symptoms. Hemoglobin was 9.1 on presentation but decreased slowly to 7.7 g/dL. I am consulted to assist with managing this. Denies any hematemesis or bleeding from any other orifice. 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 denies: smoking, alcohol abuse, prescription drug abuse Family history: no significant family history Medications and Allergies Allergies Allergy/AdvReac Type Severity Reaction Status Date / Time No Known Allergies Allergy Verified 01/11/22 09:20 Home Medications Medication Instructions Recorded Confirmed Last Taken Type Tamsulosin [Flomax] 0.4 mg PO QDAY #30 cap 01/07/20 Unknown Rx Bacitracin Zinc Oint [Antibiotic 1 applicatio TP BID #1 tube 03/21/20 Unknown Rx Oint] Benzonatate [Tessalon Perles] 100 mg PO Q8HR PRN #20 capsule 03/21/20 Unknown Rx Active Meds: Active Medications Acetaminophen (Acetaminophen 325 Mg Tab) 650 mg PO Q4H PRN PRN Reason: Pain MILD(1-3)/Fever >100.5/ESQUIVEL Hydromorphone HCl (Hydromorphone 0.5 Mg/0.5 Ml Inj) 0.5 mg IV Q3H PRN PRN Reason: Pain , Severe (7-10) Sodium Chloride (Nacl 0.9% 1000 Ml) 1,000 mls @ 42 mls/hr IV DIRECT CA Last Admin: 01/11/22 21:57 Dose: 42 mls/hr Insulin Human Lispro (Insulin Lispro 100 Unit/Ml) 0 unit SUB-Q Q6H REPLACED BY [facility]; Protocol Last Admin: 01/12/22 05:37 Dose: Not Given Morphine Sulfate (Morphine 2 Mg/1 Ml Inj) 2 mg IV Q4H PRN PRN Reason: Pain, Moderate (4-6) Ondansetron HCl (Ondansetron 4 Mg/2 Ml Inj) 4 mg IV Q8H PRN PRN Reason: Nausea And Vomiting Pantoprazole Sodium (Pantoprazole 40 Mg Inj) 40 mg IV BID REPLACED BY [facility] Last Admin: 01/11/22 21:57 Dose: 40 mg Sodium Chloride (Sodium Chloride 0.9% 10 Ml Flush Syringe) 10 ml IV BID REPLACED BY [facility] Last Admin: 01/11/22 21:57 Dose: 10 ml Sodium Chloride (Sodium Chloride 0.9% 10 Ml Flush Syringe) 10 ml IV PRN PRN PRN Reason: LINE FLUSH Review of Systems All systems: negative (As noted in history of present illness. Patient is a poor historian) Exam - Vital Signs Vital signs: Vital Signs Temp Pulse Resp BP Pulse Ox 98.4 F 90 14 124/80 96 01/11/22 09:17 01/11/22 09:17 01/11/22 09:17 01/11/22 09:17 01/11/22 09:17 - Physical Exam Narrative exam: Middle-aged -[place] male lying in bed in no acute distress HEENT: NCAT, pink oral mucous membrane Neck: Supple, no venous distention CVS: S1S2 RRR with no murmur, rub or gallop Chest: Clear to auscultation Abdomen: Protuberant, soft, nontender, no organomegaly, bowel sounds are present Extremities: No edema, Change Deferred Skin: Hyperpigmented and hypopigmented patches in both shins and legs Neuro: Awake, alert no focal deficits Results - Lab Results 01/11/22 23:33 01/11/22 09:58 Most recent lab results Calcium 8.5 mg/dL (8.4-10.2) 01/11/22 09:58 Magnesium 2.20 mg/dL (1.7-2.3) 01/11/22 09:58 Assessment and Plan - Patient Problems (1) Lower GI bleed Current Visit: Yes Status: Acute Plan to address problem: Lower GI bleed possible diverticular bleed versus AVM versus polyp. For EGD/colonoscopy by inspector tester sorter (2) Acute post-hemorrhagic anemia Current Visit: Yes Status: Acute Plan to address problem: Acute post hemorrhage anemia superimposed on anemia of chronic kidney disease. Follow-up hemoglobin. (3) BPH (benign prostatic hyperplasia) Current Visit: Yes Status: Chronic Qualifiers: Lower urinary tract symptom presence: symptoms present Plan to address problem: Continue medications (4) ESRD needing dialysis Current Visit: Yes Status: Chronic Plan to address problem: Hemodialysis on a Sunday, Sunday and Sunday schedule. (5) Hypertensive chronic kidney disease with stage 5 chronic kidney disease or end stage renal disease Current Visit: No Status: Chronic Plan to address problem: Follow-up blood pressure
[2022-01-12] MEDS ORDERED: SODIUM CHLORIDE 0.9% 100 ML IV PRN (10:30)
[2022-01-12] MEDS: PANTOPRAZOLE 40 MG INJ IV SCH ×2 (12:03→22:20)
--- NOTE | 2022-01-12 15:14 | Anesthesia Day of Surgery ---
Anesthesia Day of Surgery - Day of Surgery Patient Examined: Yes Patient H&P Reviewed: Yes Patient is NPO: Yes
--- NOTE | 2022-01-12 15:16 | Anesthesia Consultation ---
Anesthesia Consult and Med Hx Date of service: 01/12/22 - Airway Anesthetic Teeth Evaluation: Edentulous Mallampati Class: Class II Intubation Access Assessment: Possibly Difficult - Pulmonary Exam CTA: Yes - Cardiac Exam Cardiac Exam: RRR - Pre-Operative Health Status ASA Pre-Surgery Classification: ASA4 Proposed Anesthetic Plan: MAC - Pulmonary Hx Smoking: Yes - Cardiovascular System Hx Hypertension: Yes Hx Coronary Artery Disease: Yes - Central Nervous System CVA: Yes - Endocrine Hx Renal Disease: Yes (ESRD, HD q. MWF) Hx End Stage Renal Disease: Yes - Other Systems Hx Cancer: No
[2022-01-12] MEDS ORDERED: propofoL 200 MG/20 ML VIAL IV ONE (15:18)
[2022-01-12] MEDS ORDERED: KETAMINE/STERILE WATER 50 MG/ML SYRINGE ONE (15:19)
[2022-01-12] MEDS ORDERED: EPINEPHrine 1 MG/10 ML SYRINGE ONE (15:29)
[2022-01-12] MEDS ORDERED: ePHEDrine SULFATE 50 MG/1 ML INJ ONE (15:38)
--- NOTE | 2022-01-12 15:50 | Operative Report ---
Operative Report Operative Report: Date: 01/12/2022 Endoscopist: Ranulfo Frias MD (Jenny) EGD REPORT PREOPERATIVE DIAGNOSIS: GI bleed, anemia POSTOPERATIVE DIAGNOSIS: mild gastritis ESTIMATED BLOOD LOSS: minimal DESCRIPTION OF PROCEDURE: A high-resolution pediatric colonoscope was passed through the oropharynx, esophagus, stomach, and second portion of duodenum. The scope was carefully withdrawn. Retroflexion was performed in the stomach. At the end of the procedure, the scope was cleaned using normal technique. Vital signs monitored continuously throughout. SEDATION: Provided by Anesthesiology Services. COMPLICATIONS: None. FINDINGS: 1. Normal esophagus exam without any gross findings. 2. Mild erythematous mucosa in the antrum and body. Biopsies obtained. 3. Normal duodenum exam. Biopsies obtained. 4. No source of GI bleeding found. RECOMMENDATIONS: 1. Proceed with colonoscopy. Ranulfo Frias MD (Jenny) [facility]
--- NOTE | 2022-01-12 15:58 | Operative Report ---
Operative Report Operative Report: Colonoscopy: Procedure: Colonoscopy Endoscopist: Ranulfo Frias MD Pre-operative Diagnosis/Indications: GI bleed, bloody stools Post-operative Diagnosis: diverticula in the sigmoid colon, poor prep, blood throughout the colon Sedation: MAC Procedure Details: Indications, risks, and benefits were explained and consent was obtained. Pt was placed in the left lateral decubitus position and sedated. Video colonoscope was inserted thru the anus after digital exam, and advanced with the intent to reach the cecum but aborted due to poor prep and visibility. Scope was then gradually withdrawn with close inspection of the mucosa. Prep was poor. Findings: 1. Poor prep quality. Bloody stool throughout the left colon. 2. Multiple diverticula in the sigmoid colon noted but no focal area of bleeding. 3. Incomplete exam due to poor prep quality and did not reach the cecum. Specimens: none Complications: none Impression: 1. Poor prep quality with old blood and solid stools. 2. Likely diverticular bleed. 3. Incomplete exam due to poor prep quality. Recommendations: 1. Clear liquid diet. 2. Monitor H/H serially and transfuse as needed. 3. Continue with Golytely to clean out the colon. 4. No in case of overt active GI bleeding with drop in H/H and hemodynamic instability, recommend CTA and IR consult for embolization if ok with nephrology for contrast. Ranulfo Cullen (Papito Frias MD [facility]
--- NOTE | 2022-01-12 16:44 | Progress Note ---
Assessment and Plan - Patient Problems (1) Lower GI bleed Current Visit: Yes Status: Acute (2) ESRD needing dialysis Current Visit: Yes Status: Chronic (3) HTN (hypertension) Current Visit: Yes Status: Chronic Qualifiers: Hypertension type: primary hypertension Qualified Code(s): I10 - Essential (primary) hypertension (4) BPH (benign prostatic hyperplasia) Current Visit: Yes Status: Chronic Qualifiers: Lower urinary tract symptom presence: symptoms present Subjective Date of service: 01/12/22 Objective - Constitutional Vitals: Vital Signs - 12hr 01/12/22 01/12/22 01/12/22 05:22 05:27 08:20 Temperature 99.0 F 97.5 F L Pulse Rate 77 98 H Respiratory 18 20 Rate Blood Pressure 119/75 Blood Pressure 158/78 [Left] O2 Sat by Pulse 100 94 98 Oximetry 01/12/22 11:01 Temperature 99.0 F Pulse Rate 70 Respiratory 18 Rate Blood Pressure 102/62 Blood Pressure [Left] O2 Sat by Pulse 100 Oximetry - Labs CBC & Chem 7: 01/11/22 23:33 01/11/22 09:58 Labs: Abnormal lab results 01/11/22 01/11/22 Range/Units 18:43 23:33 Hgb 7.1 L 7.6 L (11.8-15.2) gm/dl Hct 22.2 L 23.6 L (35.5-45.6) %
--- NOTE | 2022-01-12 16:45 | Post Anesthesia Evaluation ---
- Post Anesthesia Evaluation Patient Participated: Yes Airway Patent: Yes Stable Respiratory Function: Yes Nausea/Vomiting: No Temp > 96.8F: Yes Pain Manageable: Yes Adequeate Hydration: Yes Anesthesia Complications: No Block Receding Appropriately: Not Applicable Patient on Ventilator: No
[2022-01-12] MEDS: SODIUM CHLORIDE 0.9% 1000 ML 1,000 ML IV SCH (23:20)
[2022-01-13 05:13] LABS: Basophils % (Auto) 0.4 % (0.0-1.8); Eosinophils # (Auto) 0.3 K/mm3 (0.0-0.4); Eosinophils % (Auto) 2.5 % (0.0-4.3); Mean Corpuscular HGB Conc 32 % (32-34); Mean Corpuscular Volume 102 fl (84-94); Monocytes # (Auto) 0.8 K/mm3 (0.0-0.8); Monocytes % (Auto) 7.8 % (0.0-7.3); Platelet Count 118 K/mm3 (140-440); Red Blood Count 1.44 M/mm3 (3.65-5.03); Red Cell Distribution Width 18.2 % (13.2-15.2)
[2022-01-13 05:17] LABS: Hematocrit 14.7 % (35.5-45.6); Hemoglobin 4.7 gm/dl (11.8-15.2)
[2022-01-13] MEDS ORDERED: SODIUM CHLORIDE 0.9% 500 ML 500 ML IV ONE ×2 (05:26→22:00)
[2022-01-13 05:28] LABS: Albumin 3.1 g/dL (3.9-5); Calcium 7.6 mg/dL (8.4-10.2)
[2022-01-13] MEDS: INSULIN LISPRO 100 UNIT/ML SUB-Q SCH ×4 (06:00→22:07)
--- NOTE | 2022-01-13 08:02 | Progress Note ---
Assessment and Plan - Patient Problems (1) Lower GI bleed Current Visit: Yes Status: Acute Plan to address problem: Lower GI bleed possible diverticular bleed versus AVM versus polyp. GI input appreciated. Bleeding source not identified. Patient needs arteriogram and possible embolization given ongoing bleeding with decreasing hemoglobin. I called Dr. Cormier to discuss the above. Patient needs to be transferred to a tertiary institution for further management emergently (2) Acute post-hemorrhagic anemia Current Visit: Yes Status: Acute Plan to address problem: Acute post hemorrhage anemia superimposed on anemia of chronic kidney disease. Hemoglobin decreased further. Continue transfusion by primary attending. Follow-up hemoglobin. (3) BPH (benign prostatic hyperplasia) Current Visit: Yes Status: Chronic Qualifiers: Lower urinary tract symptom presence: symptoms present Plan to address problem: Continue medications (4) ESRD needing dialysis Current Visit: Yes Status: Chronic Plan to address problem: Hemodialysis on a Sunday, Sunday and Sunday schedule. We will hold dialysis today to patient has been transfused and is more stable. Ideally should be transferred to tertiary cancer center emergently get arteriogram and dialysis thereafter. (5) Hypertensive chronic kidney disease with stage 5 chronic kidney disease or end stage renal disease Current Visit: No Status: Chronic Plan to address problem: Follow-up blood pressure Subjective Date of service: 01/13/22 Principal diagnosis: End-stage renal disease, gastrointestinal bleeding Interval history: 61-year-old male with end-stage renal disease admitted with gastrointestinal bleeding. Patient had colonoscopy yesterday which showed diverticuli but with very poor prep and bleeding source could not be identified. CT of the abdomen earlier showed patient with aortic stent graft and aneurysm below that with very complex vascular anatomy. Vascular has recommended patient be transferred to tertiary institution if bleeding cannot be arrested by web press operator assistant endoscopically. GI notes appreciated. Patient seen lying in bed. Still complaining of bloody stools. Hemoglobin decreased to 4.7 this morning. Objective - Exam Narrative Exam: Middle-aged -[place] male lying in bed in no acute distress HEENT: NCAT, pink oral mucous membrane Neck: Supple, no venous distention CVS: S1S2 RRR with no murmur, rub or gallop Chest: Clear to auscultation Abdomen: Protuberant, soft, nontender, no organomegaly, bowel sounds are present Extremities: No edema, Change Deferred Skin: Hyperpigmented and hypopigmented patches in both shins and legs Neuro: Awake, alert no focal deficits - Vital Signs Vital signs: Vital Signs - 12hr 01/12/22 01/12/22 01/12/22 20:00 21:18 21:21 Temperature 98.8 F 98.8 F Pulse Rate 86 84 Respiratory 16 16 Rate Blood Pressure 99/27 104/25 Blood Pressure [Left] O2 Sat by Pulse 100 100 100 Oximetry 01/13/22 05:25 Temperature 98.5 F Pulse Rate 79 Respiratory 18 Rate Blood Pressure Blood Pressure 99/41 [Left] O2 Sat by Pulse 98 Oximetry - Lab 01/13/22 04:00 01/13/22 04:00 Most recent lab results Calcium 7.6 mg/dL (8.4-10.2) L 01/13/22 04:00 Magnesium 2.20 mg/dL (1.7-2.3) 01/11/22 09:58 Medications & Allergies - Medications Allergies/Adverse Reactions: Allergies No Known Allergies Allergy (Verified 01/11/22 09:20) Home Medications: Home Medications Medication Instructions Recorded Confirmed Last Taken Type Tamsulosin [Flomax] 0.4 mg PO QDAY #30 cap 01/07/20 Unknown Rx Bacitracin Zinc Oint [Antibiotic 1 applicatio TP BID #1 tube 03/21/20 Unknown Rx Oint] Benzonatate [Tessalon Perles] 100 mg PO Q8HR PRN #20 capsule 03/21/20 Unknown Rx Active Medications: Generic Name Dose Route Start Last Admin Trade Name Freq PRN Reason Stop Dose Admin Acetaminophen 650 mg 01/11/22 16:00 Acetaminophen 325 Mg Tab PO Q4H PRN Pain MILD(1-3)/Fever >100.5/ESQUIVEL Hydromorphone HCl 0.5 mg 01/11/22 15:30 01/12/22 12:03 Hydromorphone 0.5 Mg/0.5 Ml Inj IV 0.5 mg Q3H PRN Administration Pain , Severe (7-10) Sodium Chloride 1,000 mls @ 42 mls/hr 01/11/22 16:00 01/12/22 23:20 Nacl 0.9% 1000 Ml IV 42 mls/hr DIRECT CA Administration Sodium Chloride 100 mls @ 999 mls/hr 01/12/22 10:30 Nacl 0.9% IV JUANITO PRN Hypotension Insulin Human Lispro 0 unit 08/24/22 16:00 01/13/22 06:00 Insulin Lispro 100 Unit/Ml SUB-Q Not Given Q6H [facility] Protocol Morphine Sulfate 2 mg 01/11/22 15:30 Morphine 2 Mg/1 Ml Inj IV Q4H PRN Pain, Moderate (4-6) Ondansetron HCl 4 mg 01/11/22 15:30 Ondansetron 4 Mg/2 Ml Inj IV Q8H PRN Nausea And Vomiting Pantoprazole Sodium 40 mg 01/11/22 22:00 01/12/22 22:20 Pantoprazole 40 Mg Inj IV 40 mg BID CA Administration Sodium Chloride 10 ml 01/11/22 22:00 01/12/22 22:20 Sodium Chloride 0.9% 10 Ml Flush Syringe IV 10 ml BID CA Administration Sodium Chloride 10 ml 01/11/22 16:00 Sodium Chloride 0.9% 10 Ml Flush Syringe IV PRN PRN LINE FLUSH
--- NOTE | 2022-01-13 08:47 | Progress Note ---
Assessment and Plan - Patient Problems (1) Lower GI bleed Current Visit: Yes Status: Acute Plan to address problem: Possibly from the upper GI tract secondary to NSAIDs. GI consult Hemoglobin and hematocrit every 8 hours Transfuse if necessary. Hemoglobin is at 7.8. We will hold off transfusion. But monitor hemoglobin and hematocrit and 8 hourly basis. (2) ESRD needing dialysis Current Visit: Yes Status: Chronic Plan to address problem: Patient is on Sunday and Sunday hemodialysis schedule Due for hemodialysis today (3) HTN (hypertension) Current Visit: Yes Status: Chronic Qualifiers: Hypertension type: primary hypertension Qualified Code(s): I10 - Essential (primary) hypertension Plan to address problem: Cont antihypertensives and adjust medications (4) BPH (benign prostatic hyperplasia) Current Visit: Yes Status: Chronic Qualifiers: Lower urinary tract symptom presence: symptoms present Plan to address problem: Continue tamsulosin Subjective Date of service: 01/13/22 Principal diagnosis: End-stage renal disease, gastrointestinal bleeding Objective - Constitutional Vitals: Vital Signs - 12hr 01/12/22 01/12/22 01/13/22 21:18 21:21 05:25 Temperature 98.8 F 98.8 F 98.5 F Pulse Rate 86 84 79 Respiratory 16 16 18 Rate Blood Pressure 99/27 104/25 Blood Pressure 99/41 [Left] O2 Sat by Pulse 100 100 98 Oximetry General appearance: Present: no acute distress, well-nourished - EENT Eyes: PERRL, EOM intact ENT: hearing intact, clear oral mucosa Ears: bilateral: normal - Neck Neck: supple, normal ROM - Respiratory Respiratory effort: normal Respiratory: bilateral: CTA - Breasts Breasts: normal - Cardiovascular Rhythm: regular Heart Sounds: Present: S1 & S2. Absent: gallop, rub Extremities: pulses intact, No edema, normal color, Full ROM - Gastrointestinal General gastrointestinal: Present: soft, non-tender, non-distended, normal bowel sounds - Genitourinary Male genitourinary: normal - Integumentary Integumentary: clear, warm, dry - Musculoskeletal Musculoskeletal: 1, strength equal bilaterally - Neurologic Neurologic: moves all extremities - Psychiatric Psychiatric: memory intact, appropriate mood/affect, intact judgment & insight - Labs CBC & Chem 7: 01/13/22 04:00 01/13/22 04:00 Labs: Abnormal lab results 01/13/22 01/13/22 01/13/22 Range/Units 04:00 04:00 05:45 RBC 1.44 L (3.65-5.03) M/mm3 Hgb 4.7 L* (11.8-15.2) gm/dl Hct 14.7 L* D (35.5-45.6) % MCV 102 H (84-94) fl RDW 18.2 H (13.2-15.2) % Plt Count 118 L (140-440) K/mm3 Lymph % (Auto) 10.0 L (13.4-35.0) % [place] % (Auto) 7.8 H (0.0-7.3) % Lymph # (Auto) 1.0 L (1.2-5.4) K/mm3 Seg Neutrophils % 79.3 H (40.0-70.0) % Seg Neutrophils # 8.0 H (1.8-7.7) K/mm3 Sodium 136 L (137-145) mmol/L Potassium 5.3 H (3.6-5.0) mmol/L Carbon Dioxide 20 L (22-30) mmol/L BUN 93 H (9-20) mg/dL Creatinine 10.1 H (0.8-1.3) mg/dL Calcium 7.6 L (8.4-10.2) mg/dL Total Protein 5.1 L (6.3-8.2) g/dL Albumin 3.1 L (3.9-5) g/dL Crossmatch See Detail
[2022-01-13] MEDS: PANTOPRAZOLE 40 MG INJ IV SCH ×2 (15:43→22:05)
--- NOTE | 2022-01-13 16:36 | Gastroenterology Progress Note ---
Assessment and Plan # Rectal bleeding # Melena -s/p EGD/colonoscopy on 12/23/2021. EGD unremarkable. Colonoscopy was incomplete due to poor prep but showed bloody stool throughout the colon and left-sided colon diverticulosis. -Likely diverticular bleed. -Noted to have drop in hemoglobin down to 4.7 today. But patient had not had labs checked yesterday even though they were ordered multiple times. -Patient remains hemodynamically stable rec -Monitor H&H and transfuse as needed with hemoglobin goal above 7. -Awaiting CTA today. -Monitor for any overt signs of GI bleeding. -If CTA positive for active bleeding, recommend IR consult for embolization. -We will follow. - Patient Problems (1) Hematochezia Current Visit: Yes Status: Acute (2) Lower GI bleed Current Visit: Yes Status: Acute Subjective Date of service: 01/13/22 Principal diagnosis: End-stage renal disease, gastrointestinal bleeding Interval history: Patient denies any bowel movements today. Did have bloody stool yesterday. Wants to eat. Objective - Constitutional Vitals: Temp Pulse Resp BP Pulse Ox 98.6 F 76 18 123/60 100 01/13/22 08:50 01/13/22 13:52 01/13/22 12:17 01/13/22 13:52 01/13/22 13:52 General appearance: no acute distress - EENT Eyes: EOM intact - Neck Neck: supple - Cardiovascular Rhythm: regular Heart Sounds: Present: S1 & S2 - Gastrointestinal General gastrointestinal: Present: soft, non-tender, non-distended - Integumentary Integumentary: Present: clear - Neurologic Neurological: alert and oriented x3 - Labs CBC & Chem 7: 01/13/22 04:00 01/13/22 04:00 Labs: Laboratory Results - last 24 hr 01/12/22 01/12/22 01/13/22 16:25 21:16 04:00 WBC 10.1 RBC 1.44 L Hgb 4.7 L* Hct 14.7 L* D MCV 102 H MCH 32 MCHC 32 RDW 18.2 H Plt Count 118 L Lymph % (Auto) 10.0 L Barry % (Auto) 7.8 H Eos % (Auto) 2.5 Baso % (Auto) 0.4 Lymph # (Auto) 1.0 L Barry # (Auto) 0.8 Eos # (Auto) 0.3 Baso # (Auto) 0.0 Seg Neutrophils % 79.3 H Seg Neutrophils # 8.0 H Sodium Potassium Chloride Carbon Dioxide Anion Gap BUN Creatinine Estimated GFR BUN/Creatinine Ratio Glucose POC Glucose 99 70 Calcium Total Bilirubin AST ALT Alkaline Phosphatase Total Protein Albumin Albumin/Globulin Ratio Blood Type Antibody Screen Crossmatch 01/13/22 01/13/22 01/13/22 04:00 05:45 06:06 WBC RBC Hgb Hct MCV MCH MCHC RDW Plt Count Lymph % (Auto) Barry % (Auto) Eos % (Auto) Baso % (Auto) Lymph # (Auto) Barry # (Auto) Eos # (Auto) Baso # (Auto) Seg Neutrophils % Seg Neutrophils # Sodium 136 L Potassium 5.3 H Chloride 98.8 Carbon Dioxide 20 L Anion Gap 23 BUN 93 H Creatinine 10.1 H Estimated GFR 6 BUN/Creatinine Ratio 9 Glucose 93 POC Glucose 85 Calcium 7.6 L Total Bilirubin 0.20 AST 14 ALT 11 Alkaline Phosphatase 43 Total Protein 5.1 L Albumin 3.1 L Albumin/Globulin Ratio 1.6 Blood Type O POSITIVE Antibody Screen Negative Crossmatch See Detail
--- NOTE | 2022-01-13 17:44 | Cat Scan Report ---
CTA ABDOMEN AND PELVIS WITH CONTRAST INDICATION / CLINICAL INFORMATION: Active Diverticular bleed 100ml of [id number] . TECHNIQUE: Axial CT images were obtained through the abdomen and pelvis after after injection of 100 cc Omnipaque 350 IV contrast. 3 plane MIP / 3D reconstructions were produced. All CT scans at this lo [facility] are performed using CT dose reduction for ALARA by means of automated exposure control. COMPARISON: 01/11/2022 FINDINGS: AORTA: There is partial visualization of the caudal margin of endovascular stent within the thoracic aorta. Redemonstrated soft tissue thrombus within the descending thoracic aorta. 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 RENAL ARTERIES: Mild atherosclerotic disease involving the left renal artery which arises from the fa lse lumen. There is no significant atherosclerotic disease involving the right renal artery. CELIAC ARTERY: Celiac artery arises from the false lumen and demonstrates no significant calcific ath erosclerotic disease. SUPERIOR MESENTERIC ARTERY: The SMA extends from the true lumen and demonstrates marked soft tissue t hrombus within its proximal portion and severe soft tissue thrombus and its distal portion. INFERIOR MESENTERIC ARTERY: Tic off of the inferior mesenteric artery is not well evaluated. 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 LEFT ILIAC ARTERIES: There is prominent dissection of the left iliac artery with mild calcific athero sclerotic disease, not significant changed from prior CT. ADDITIONAL FINDINGS: Marked diverticular disease throughout the colon. There is marked endoluminal op acification of the colon. There is vicarious excretion of contrast within the gallbladder; however, t he amount of density within the colon appears more than what would be expected for vicarious excretio n of contrast. SKELETAL: No significant abnormality. IMPRESSION: 1. There is marked diverticular disease throughout the colon with endoluminal opacification of nearly all of the colon. This appearance suggests administration of oral contrast however there is no histo ry of oral contrast administration. Additional considerations would include vicarious excretion of co ntrast from the gallbladder; however, this appears out of portion to what would be expected for vicar ious excretion. Therefore, hemorrhage should be considered. No clear source is identified. 2. There is redemonstrated vascular disease which is not significant changed compared to prior CT anabel ed 01/11/2022. Signer Name: Cruz Holcomb DO Signed: 01/13/2022 5:40 PM Workstation Name: [email or web address]
[2022-01-13 19:48] LABS: Hematocrit 17.5 % (35.5-45.6); Hemoglobin 5.9 gm/dl (11.8-15.2)
[2022-01-13 21:50] LABS: Hematocrit 16.7 % (35.5-45.6); Hemoglobin 5.8 gm/dl (11.8-15.2)
[2022-01-13] MEDS ORDERED: DEXTROSE 50% IN WATER (25GM) 50 ML SYRINGE IV ONE (22:30)
[2022-01-13] MEDS: D5W/0.45% NACL 1,000 ML IV SCH (23:33)
[2022-01-14] MEDS ORDERED: SODIUM CHLORIDE 0.9% 500 ML 500 ML ONE (02:13)
[2022-01-14] MEDS: INSULIN LISPRO 100 UNIT/ML SUB-Q SCH ×4 (05:00→22:31)
[2022-01-14] MEDS: PANTOPRAZOLE 40 MG INJ IV SCH ×2 (09:56→21:33)
--- NOTE | 2022-01-14 10:35 | Gastroenterology Progress Note ---
Assessment and Plan GI bleed - s/p egd/colonoscopy, findings suggestive of possible diverticular bleed. CTA without obvious signs of active bleeding. s/p blood transfusion after most recent h/h, f/u for adequate response. cont on clears today. hopefully this is a resolved diverticular bleed. Subjective Date of service: 01/14/22 Principal diagnosis: End-stage renal disease, gastrointestinal bleeding Interval history: no signs of gi bleeding overnight/today so far. denies abd pain. Objective - Constitutional Vitals: Temp Pulse Resp BP Pulse Ox 99.6 F 77 18 130/67 100 01/14/22 07:04 01/14/22 07:04 01/14/22 07:04 01/14/22 07:04 01/14/22 07:04 General appearance: no acute distress - Respiratory Respiratory effort: normal Respiratory: bilateral: CTA - Cardiovascular Rhythm: regular - Gastrointestinal General gastrointestinal: Present: soft, non-tender - Labs CBC & Chem 7: 01/13/22 21:19 01/13/22 04:00 Labs: Laboratory Results - last 24 hr 01/13/22 01/13/22 01/13/22 05:45 15:14 21:19 Hgb 5.9 L* 5.8 L* Hct 17.5 L* 16.7 L* POC Glucose Blood Type O POSITIVE Antibody Screen Negative Crossmatch See Detail 01/13/22 01/14/22 22:07 04:28 Hgb Hct POC Glucose 55 L 70 Blood Type Antibody Screen Crossmatch
--- NOTE | 2022-01-14 10:35 | Progress Note ---
Assessment and Plan - Patient Problems (1) Lower GI bleed Current Visit: Yes Status: Acute Plan to address problem: Possibly from the upper GI tract secondary to NSAIDs. GI consult Hemoglobin and hematocrit every 8 hours Transfuse if necessary. Hemoglobin is at 7.8. We will hold off transfusion. But monitor hemoglobin and hematocrit and 8 hourly basis. (2) ESRD needing dialysis Current Visit: Yes Status: Chronic Plan to address problem: Patient is on Sunday and Sunday hemodialysis schedule Due for hemodialysis today (3) HTN (hypertension) Current Visit: Yes Status: Chronic Qualifiers: Qualified Code(s): I10 - Essential (primary) hypertension Plan to address problem: Cont antihypertensives and adjust medications (4) BPH (benign prostatic hyperplasia) Current Visit: Yes Status: Chronic Plan to address problem: Continue tamsulosin Subjective Date of service: 01/14/22 Principal diagnosis: End-stage renal disease, gastrointestinal bleeding Objective - Constitutional Vitals: Vital Signs - 12hr 01/14/22 01/14/22 01/14/22 04:08 04:23 04:53 Temperature 99.4 F 99.5 F 98.4 F Pulse Rate 74 75 79 Respiratory 18 18 18 Rate Blood Pressure 124/61 132/62 124/60 O2 Sat by Pulse 100 100 100 Oximetry 01/14/22 01/14/22 01/14/22 05:23 05:53 06:23 Temperature 98.8 F 99.5 F 99.6 F Pulse Rate 76 75 76 Respiratory 18 18 18 Rate Blood Pressure 127/72 128/60 138/61 O2 Sat by Pulse 100 100 100 Oximetry 01/14/22 01/14/22 06:53 07:04 Temperature 99.4 F 99.6 F Pulse Rate 77 77 Respiratory 18 18 Rate Blood Pressure 136/71 130/67 O2 Sat by Pulse 100 100 Oximetry General appearance: Present: no acute distress, well-nourished - EENT Eyes: PERRL, EOM intact ENT: hearing intact, clear oral mucosa Ears: bilateral: normal - Neck Neck: supple, normal ROM - Respiratory Respiratory effort: normal Respiratory: bilateral: CTA - Breasts Breasts: normal - Cardiovascular Rhythm: regular Heart Sounds: Present: S1 & S2. Absent: gallop, rub Extremities: pulses intact, No edema, normal color, Full ROM - Gastrointestinal General gastrointestinal: Present: soft, non-tender, non-distended, normal bowel sounds - Genitourinary Male genitourinary: normal - Integumentary Integumentary: clear, warm, dry - Musculoskeletal Musculoskeletal: 1, strength equal bilaterally - Neurologic Neurologic: moves all extremities - Psychiatric Psychiatric: memory intact, appropriate mood/affect, intact judgment & insight - Labs CBC & Chem 7: 01/13/22 21:19 01/13/22 04:00 Labs: Abnormal lab results 01/13/22 01/13/22 01/13/22 Range/Units 05:45 15:14 21:19 Hgb 5.9 L* 5.8 L* (11.8-15.2) gm/dl Hct 17.5 L* 16.7 L* (35.5-45.6) % POC Glucose (70-105) mg/dL Crossmatch See Detail 01/13/22 Range/Units 22:07 Hgb (11.8-15.2) gm/dl Hct (35.5-45.6) % POC Glucose 55 L (70-105) mg/dL Crossmatch
[2022-01-14] MEDS ORDERED: SODIUM CHLORIDE 0.9% 500 ML 500 ML IV ONE (11:00)
[2022-01-14 11:18] LABS: Basophils % (Auto) 0.4 % (0.0-1.8); Eosinophils # (Auto) 0.4 K/mm3 (0.0-0.4); Eosinophils % (Auto) 5.7 % (0.0-4.3); Hematocrit 22.4 % (35.5-45.6); Hemoglobin 7.5 gm/dl (11.8-15.2); Lymphocytes # (Auto) 1.1 K/mm3 (1.2-5.4); Lymphocytes % (Auto) 16.9 % (13.4-35.0); Mean Corpuscular HGB Conc 33 % (32-34); Mean Corpuscular Volume 95 fl (84-94); Monocytes # (Auto) 0.6 K/mm3 (0.0-0.8); Monocytes % (Auto) 8.4 % (0.0-7.3); Platelet Count 42 K/mm3 (140-440); Red Blood Count 2.36 M/mm3 (3.65-5.03); Red Cell Distribution Width 18.9 % (13.2-15.2)
--- NOTE | 2022-01-14 14:15 | Progress Note ---
Assessment and Plan - Patient Problems (1) Lower GI bleed Current Visit: Yes Status: Acute Plan to address problem: Lower GI bleed possible diverticular bleed versus AVM versus polyp. GI input appreciated. Bleeding source not identified. CT angiogram did not show any source of bleeding. Hemoglobin is now improving with transfusion. Bleeding may have resolved (2) Acute post-hemorrhagic anemia Current Visit: Yes Status: Acute Plan to address problem: Acute post hemorrhage anemia superimposed on anemia of chronic kidney disease. Hemoglobin has improved posttransfusion . Continue transfusion by primary attending. Follow-up hemoglobin. (3) BPH (benign prostatic hyperplasia) Current Visit: Yes Status: Chronic Qualifiers: Lower urinary tract symptom presence: symptoms present Plan to address problem: Continue medications (4) ESRD needing dialysis Current Visit: Yes Status: Chronic Plan to address problem: Hemodialysis on a Sunday, Sunday and Sunday schedule. (5) Hypertensive chronic kidney disease with stage 5 chronic kidney disease or end stage renal disease Current Visit: No Status: Chronic Plan to address problem: Follow-up blood pressure Subjective Date of service: 01/14/22 Principal diagnosis: End-stage renal disease, gastrointestinal bleeding Interval history: 61-year-old male with end-stage renal disease admitted with gastrointestinal bleeding. Patient had colonoscopy yesterday which showed diverticuli but with very poor prep and bleeding source could not be identified. CT of the abdomen earlier showed patient with aortic stent graft and aneurysm below that with very complex vascular anatomy. Vascular has recommended patient be transferred to tertiary institution if bleeding cannot be arrested by stockroom clerk endoscopically. GI notes appreciated. Patient seen lying in bed. No longer having bloody stools. CT angiogram yesterday did not show any active bleeding. Hemoglobin has improved with transfusion. Objective - Exam Narrative Exam: Middle-aged -[place]ian male lying in bed in no acute distress HEENT: NCAT, pink oral mucous membrane Neck: Supple, no venous distention CVS: S1S2 RRR with no murmur, rub or gallop Chest: Clear to auscultation Abdomen: Protuberant, soft, nontender, no organomegaly, bowel sounds are present Extremities: No edema, Change Deferred Skin: Hyperpigmented and hypopigmented patches in both shins and legs Neuro: Awake, alert no focal deficits - Vital Signs Vital signs: Vital Signs - 12hr 01/14/22 01/14/22 01/14/22 04:08 04:23 04:53 Temperature 99.4 F 99.5 F 98.4 F Pulse Rate 74 75 79 Respiratory 18 18 18 Rate Blood Pressure 124/61 132/62 124/60 O2 Sat by Pulse 100 100 100 Oximetry 01/14/22 01/14/22 01/14/22 05:23 05:53 06:23 Temperature 98.8 F 99.5 F 99.6 F Pulse Rate 76 75 76 Respiratory 18 18 18 Rate Blood Pressure 127/72 128/60 138/61 O2 Sat by Pulse 100 100 100 Oximetry 01/14/22 01/14/22 01/14/22 06:53 07:04 08:00 Temperature 99.4 F 99.6 F Pulse Rate 77 77 Respiratory 18 18 Rate Blood Pressure 136/71 130/67 O2 Sat by Pulse 100 100 100 Oximetry - Lab 01/14/22 10:51 01/13/22 04:00 Most recent lab results Calcium 7.6 mg/dL (8.4-10.2) L 01/13/22 04:00 Magnesium 2.20 mg/dL (1.7-2.3) 01/11/22 09:58 Medications & Allergies - Medications Allergies/Adverse Reactions: Allergies No Known Allergies Allergy (Verified 01/11/22 09:20) Home Medications: Home Medications Medication Instructions Recorded Confirmed Last Taken Type Tamsulosin [Flomax] 0.4 mg PO QDAY #30 cap 01/07/20 Unknown Rx Bacitracin Zinc Oint [Antibiotic 1 applicatio TP BID #1 tube 03/21/20 Unknown Rx Oint] Benzonatate [Tessalon Perles] 100 mg PO Q8HR PRN #20 capsule 03/21/20 Unknown Rx Active Medications: Generic Name Dose Route Start Last Admin Trade Name Freq PRN Reason Stop Dose Admin Acetaminophen 650 mg 01/11/22 16:00 Acetaminophen 325 Mg Tab PO Q4H PRN Pain MILD(1-3)/Fever >100.5/ESQUIVEL Hydromorphone HCl 0.5 mg 01/11/22 15:30 01/12/22 12:03 Hydromorphone 0.5 Mg/0.5 Ml Inj IV 0.5 mg Q3H PRN Administration Pain , Severe (7-10) Sodium Chloride 100 mls @ 999 mls/hr 01/12/22 10:30 Nacl 0.9% IV JUANITO PRN Hypotension Dextrose/Sodium Chloride 1,000 mls @ 100 mls/hr 01/13/22 22:29 01/13/22 23:33 D5/0.45ns IV 100 mls/hr DIRECT CA Administration Insulin Human Lispro 0 unit 01/11/22 16:00 01/14/22 10:01 Insulin Lispro 100 Unit/Ml SUB-Q Not Given Q6H [facility] Protocol Morphine Sulfate 2 mg 01/11/22 15:30 Morphine 2 Mg/1 Ml Inj IV Q4H PRN Pain, Moderate (4-6) Ondansetron HCl 4 mg 01/11/22 15:30 Ondansetron 4 Mg/2 Ml Inj IV Q8H PRN Nausea And Vomiting Pantoprazole Sodium 40 mg 01/11/22 22:00 01/14/22 09:56 Pantoprazole 40 Mg Inj IV 40 mg BID CA Administration Sodium Chloride 10 ml 01/11/22 22:00 01/14/22 09:56 Sodium Chloride 0.9% 10 Ml Flush Syringe IV 10 ml BID CA Administration Sodium Chloride 10 ml 01/11/22 16:00 Sodium Chloride 0.9% 10 Ml Flush Syringe IV PRN PRN LINE FLUSH
[2022-01-14] MEDS: D5W/0.45% NACL 1,000 ML IV SCH (14:43)
[2022-01-14] MEDS ORDERED: SODIUM CHLORIDE 0.9% 500 ML 500 ML IV SCH (21:00)
[2022-01-14 21:19] LABS: Hemoglobin 5.8 gm/dl (11.8-15.2)
[2022-01-15 05:50] LABS: Hematocrit 21.6 % (35.5-45.6); Hemoglobin 7.5 gm/dl (11.8-15.2)
[2022-01-15] MEDS: INSULIN LISPRO 100 UNIT/ML SUB-Q SCH ×4 (05:59→21:13)
[2022-01-15] MEDS: D5W/0.45% NACL 1,000 ML IV SCH (09:19)
[2022-01-15] MEDS: PANTOPRAZOLE 40 MG INJ IV SCH ×2 (09:28→21:12)
[2022-01-15 11:03] LABS: Calcium 7.6 mg/dL (8.4-10.2)
--- NOTE | 2022-01-15 11:38 | Gastroenterology Progress Note ---
Assessment and Plan 1. GI bleed - suspected diverticular bleeding, had recurrent bleeding yesterday afternoon with drop in H/H. appropriate response following blood transfusions on repeat labs. would monitor another day in ICU vs step down for closer monito ring, and if re-bleeds would repeat stat CTA. keep on clears today, discussed with pt. Subjective Date of service: 01/15/22 Principal diagnosis: End-stage renal disease, gastrointestinal bleeding Interval history: pt had episode of brbpr yesterday afternoon and transferred to ICU, had drop in hgb with appropriate response following blood transfusions. no further bleeding overnight or today so far. Objective - Constitutional Vitals: Temp Pulse Resp BP Pulse Ox 98 F 89 14 147/78 100 01/15/22 11:31 01/15/22 11:31 01/15/22 11:31 01/15/22 11:20 01/15/22 11:31 General appearance: no acute distress - Respiratory Respiratory effort: normal Respiratory: bilateral: CTA - Cardiovascular Rhythm: regular Heart Sounds: Present: S1 & S2 - Gastrointestinal General gastrointestinal: Present: soft, non-tender, non-distended - Labs CBC & Chem 7: 01/15/22 05:33 01/15/22 09:42 Labs: Laboratory Results - last 24 hr 01/13/22 01/14/22 01/14/22 05:45 11:11 17:00 Hgb Hct Sodium Potassium Chloride Carbon Dioxide Anion Gap BUN Creatinine Estimated GFR BUN/Creatinine Ratio Glucose POC Glucose 95 84 Calcium Blood Type O POSITIVE Antibody Screen Negative Crossmatch See Detail 01/14/22 01/14/22 01/14/22 19:49 22:16 23:19 Hgb 5.8 L* Hct 17.0 L* Sodium Potassium Chloride Carbon Dioxide Anion Gap BUN Creatinine Estimated GFR BUN/Creatinine Ratio Glucose POC Glucose 78 95 Calcium Blood Type Antibody Screen Crossmatch 01/15/22 01/15/22 01/15/22 05:33 05:58 06:04 Hgb 7.5 L Hct 21.6 L Sodium Potassium Chloride Carbon Dioxide Anion Gap BUN Creatinine Estimated GFR BUN/Creatinine Ratio Glucose POC Glucose 62 L 75 Calcium Blood Type Antibody Screen Crossmatch 01/15/22 01/15/22 09:29 09:42 Hgb Hct Sodium 139 Potassium 5.0 Chloride 105.8 Carbon Dioxide 25 Anion Gap 13 BUN 48 H Creatinine 6.2 H Estimated GFR 11 BUN/Creatinine Ratio 8 Glucose 82 POC Glucose 68 L Calcium 7.6 L Blood Type Antibody Screen Crossmatch
--- NOTE | 2022-01-15 11:54 | Consultation ---
History of Present Illness - Reason for Consult Consult date: 01/15/22 Bleeding, anemia - History of Present Illness 61 y/o male with renal disease, PVD admitted with rectal bleeding. Scoped ea rlier in stay and had mild gastritis on upper and unable to assess lower secondary to poor prep. Called by IMS yesterday to transfer secondary to bleeding. HGB dropped to 5. Given 2 units of blood last night. no further bleeding since transfer. Sitting up in bed watching TV Past History Past Medical History: CAD, dialysis, ESRD, other (Aortic dissection, BPH) Past Surgical History: CABG, Other (Repair of aortic dissection with stent graft, left upper extremity AV fistula, left internal jugular permacath) Social history: no significant social history, other ([employer]. Retired). denies: smoking, alcohol abuse, prescription drug abuse Family history: no significant family history Medications and Allergies Allergies Allergy/AdvReac Type Severity Reaction Status Date / Time No Known Allergies Allergy Verified 01/11/22 09:20 Home Medications Medication Instructions Recorded Confirmed Last Taken Type Tamsulosin [Flomax] 0.4 mg PO QDAY #30 cap 01/07/20 Unknown Rx Bacitracin Zinc Oint [Antibiotic 1 applicatio TP BID #1 tube 03/21/20 Unknown Rx Oint] Benzonatate [Tessalon Perles] 100 mg PO Q8HR PRN #20 capsule 03/21/20 Unknown Rx Active Meds: Active Medications Acetaminophen (Acetaminophen 325 Mg Tab) 650 mg PO Q4H PRN PRN Reason: Pain MILD(1-3)/Fever >100.5/ESQUIVEL Hydromorphone HCl (Hydromorphone 0.5 Mg/0.5 Ml Inj) 0.5 mg IV Q3H PRN PRN Reason: Pain , Severe (7-10) Last Admin: 01/12/22 12:03 Dose: 0.5 mg Sodium Chloride (Nacl 0.9%) 100 mls @ 999 mls/hr IV JUANITO PRN PRN Reason: Hypotension Sodium Chloride (Nacl 0.9% 500 Ml) 500 mls @ 0 mls/hr IV DIRECT CA Last Admin: 01/14/22 21:25 Dose: 10 mls/hr Dextrose/Sodium Chloride (D5/0.45ns) 1,000 mls @ 50 mls/hr IV DIRECT CA Last Admin: 01/15/22 09:19 Dose: 50 mls/hr Insulin Human Lispro (Insulin Lispro 100 Unit/Ml) 0 unit SUB-Q Q6H [facility]; Protocol Last Admin: 01/15/22 09:29 Dose: Not Given Morphine Sulfate (Morphine 2 Mg/1 Ml Inj) 2 mg IV Q4H PRN PRN Reason: Pain, Moderate (4-6) Ondansetron HCl (Ondansetron 4 Mg/2 Ml Inj) 4 mg IV Q8H PRN PRN Reason: Nausea And Vomiting Pantoprazole Sodium (Pantoprazole 40 Mg Inj) 40 mg IV BID [facility] Last Admin: 01/15/22 09:28 Dose: 40 mg Sodium Chloride (Sodium Chloride 0.9% 10 Ml Flush Syringe) 10 ml IV BID [facility] Last Admin: 01/15/22 09:28 Dose: 10 ml Sodium Chloride (Sodium Chloride 0.9% 10 Ml Flush Syringe) 10 ml IV PRN PRN PRN Reason: LINE FLUSH Review of Systems All systems: negative Exam - Constitutional Vitals: Temp Pulse Resp BP Pulse Ox 98 F 89 14 147/78 100 01/15/22 11:31 01/15/22 11:31 01/15/22 11:31 01/15/22 11:20 01/15/22 11:31 General appearance: Present: no acute distress, other (appears older than stated age) - EENT Eyes: Present: PERRL ENT: hearing intact - Neck Neck: Present: supple - Respiratory Respiratory effort: normal Respiratory: bilateral: CTA Results - Labs CBC & Chem 7: 01/15/22 05:33 01/15/22 09:42 Labs: Abnormal lab results 01/13/22 01/14/22 01/15/22 Range/Units 05:45 19:49 05:33 Hgb 5.8 L* 7.5 L (11.8-15.2) gm/dl Hct 17.0 L* 21.6 L (35.5-45.6) % BUN (9-20) mg/dL Creatinine (0.8-1.3) mg/dL POC Glucose (70-105) mg/dL Calcium (8.4-10.2) mg/dL Crossmatch See Detail 01/15/22 01/15/22 01/15/22 Range/Units 05:58 09:29 09:42 Hgb (11.8-15.2) gm/dl Hct (35.5-45.6) % BUN 48 H (9-20) mg/dL Creatinine 6.2 H (0.8-1.3) mg/dL POC Glucose 62 L 68 L (70-105) mg/dL Calcium 7.6 L (8.4-10.2) mg/dL Crossmatch - Imaging and Cardiology CT scan - abdomen: report reviewed CT scan - pelvis: report reviewed Assessment and Plan 61 y/o male with suspected lower GI bleed 1. Q6hour H/H's. 2. Transfuse for Hemoglobin <7 3. Per GI clear liquid diet 4. IMS speaking with vascular. Reviewed their note from earlier in the stay. Not sure if stat CTA is going to be helpful as vascular commented that he would not be a good candidate for intervention on their part and suggested transfer to tertiary care.
[2022-01-15] MEDS ORDERED: SODIUM CHLORIDE 0.9% 500 ML 500 ML IV ONE (14:11)
--- NOTE | 2022-01-15 14:39 | Progress Note ---
Assessment and Plan Assessment and plan: This is a 62-year-old male with ESRD on HD, HTN, CABG x2, s/p thoracic aortic stent, BPH and DM admitted with GI bleeding Neuro: NAD -Reorientation as needed -Maintain sleep-wake cycle -As needed analgesia Cardiac: h/o HTN, CABG x2, thoracic aortic aneurysm -Cardiology consulted, appreciate recommendations -Blood pressure monitoring per protocol Respiratory: Acute hypoxic respiratory failure -Supplemental oxygen as needed -SPO2 monitor per protocol -Pulmonary hygiene GI: LGIB, moderate protein calorie malnutrition -GI consulted, appreciate recommendations -CT abd/pelvis with contrast -S/p EGD and 01/12 which showed normal esophagus, mild erythematous mucosa in the antrum of of the body, biopsies obtained, normal duodenum, biopsies obtained and no source of GI bleeding found -S/p colonoscopy on 01/12 due to feeling poor quality however likely diverticular bleed -24 hours + 2470 mL -PPI -FLD -Trend h/h : ESRD on HD, h/o BPH -Nephrology consulted, appreciate recommendations -HD per nephrology -Monitor intake and output -Renally dose medications -Avoid nephrotoxic medications -Trend BMP ID: NAD -f/u blood culture -Monitor WBC and temperature curve Endo: h/o DM -Avoid hypoglycemia -SSI -Accu-Cheks q. ACHS -Long-acting insulin, titrate as needed Heme: Acute on chronic anemia -Presented with GI bleed -Multiple episodes of GI bleed noted throughout stay -S/p 5 unit prbc -h/h q 8 hours -Trend CBC -Transfuse hemoglobin less than 7 -SCDs to BLE while in bed The high probability of a clinically significant, sudden or life threatening deterioration of the [GIB] system(s) required my full and direct attention, intervention and personal management. The aggregate critical care time was [60] minutes. This time is in addition to time spent performing reported procedures but includes the following: [x] Data Review and interpretation [x] Patient assessment and monitoring of vital signs [x] Documentation [x] Medication orders and management Disposition Plan: icu Total Time Spent with Patient (Minutes): 60 History Interval history: This is a 62-year-old male with ESRD on HD, HTN, CABG x2, s/p thoracic aortic stent, BPH and DM who presented to the emergency department on 01/11 with complaints of GI bleed. Patient states that he has had 2 episodes of lower GI bleed, black tarry stools noted. 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 Patient was admitted to the hospitalist service with consults to GI, vascular surgery, nephrology with GI bleeding. ICU course to date: 01/15: Patient was transferred to ICU for closer monitoring yesterday afternoon after second episode of GI bleeding was noted and he had a repeat CTA abdomen/pelvis. Patient's hemoglobin dropped to 5 yesterday and was given 2 units PRBC. GI recommends obtaining another CTA if recurrence of GI bleeding noted. Hospitalist Physical - Constitutional Vitals: Temp Pulse Resp BP Pulse Ox 98 F 86 30 H 147/79 97 01/15/22 11:31 01/15/22 14:20 01/15/22 14:20 01/15/22 14:20 01/15/22 14:20 General appearance: Present: no acute distress, other (appears older than stated age) - EENT Eyes: Present: PERRL, EOM intact ENT: hearing intact, poor dentition - Neck Neck: Present: normal ROM - Respiratory Respiratory effort: normal Respiratory: bilateral: CTA - Cardiovascular Rhythm: regular Heart Sounds: Present: S1 & S2. Absent: systolic murmur, diastolic murmur - Extremities Extremities: no ischemia, pulses intact, pulses symmetrical, No edema, normal temperature, normal color, Full ROM Peripheral Pulses: within normal limits - Abdominal General gastrointestinal: soft, non-tender, non-distended, normal bowel sounds - Integumentary Integumentary: Present: warm, dry - Psychiatric Psychiatric: cooperative - Neurologic Neurologic: CNII-XII intact, focal deficits (left UE) - Allied Health Allied health notes reviewed: nursing, social work Results - Labs CBC & Chem 7: 01/15/22 05:33 01/15/22 09:42 Labs: Laboratory Last Values WBC 6.7 K/mm3 (4.5-11.0) 01/14/22 10:51 RBC 2.36 M/mm3 (3.65-5.03) L 01/14/22 10:51 Hgb 7.5 gm/dl (11.8-15.2) L 01/15/22 05:33 Hct 21.6 % (35.5-45.6) L 01/15/22 05:33 MCV 95 fl (84-94) H 01/14/22 10:51 MCH 32 pg (28-32) 01/14/22 10:51 MCHC 33 % (32-34) 01/14/22 10:51 RDW 18.9 % (13.2-15.2) H 01/14/22 10:51 Plt Count 42 K/mm3 (140-440) L 01/14/22 10:51 Lymph % (Auto) 16.9 % (13.4-35.0) 01/14/22 10:51 [place] % (Auto) 8.4 % (0.0-7.3) H 01/14/22 10:51 Eos % (Auto) 5.7 % (0.0-4.3) H 01/14/22 10:51 Baso % (Auto) 0.4 % (0.0-1.8) 01/14/22 10:51 Lymph # (Auto) 1.1 K/mm3 (1.2-5.4) L 01/14/22 10:51 [place] # (Auto) 0.6 K/mm3 (0.0-0.8) 01/14/22 10:51 Eos # (Auto) 0.4 K/mm3 (0.0-0.4) 01/14/22 10:51 Baso # (Auto) 0.0 K/mm3 (0.0-0.1) 01/14/22 10:51 Add Manual Diff Complete 01/11/22 13:02 Total Counted 100 01/11/22 13:02 Seg Neutrophils % 68.6 % (40.0-70.0) 01/14/22 10:51 Seg Neuts % (Manual) 76.0 % (40.0-70.0) H 01/11/22 13:02 Band Neutrophils % 1.0 % 01/11/22 13:02 Lymphocytes % (Manual) 7.0 % (13.4-35.0) L 01/11/22 13:02 Reactive Lymphs % (Man) 0 % 01/11/22 13:02 Monocytes % (Manual) 5.0 % (0.0-7.3) 01/11/22 13:02 Eosinophils % (Manual) 11.0 % (0.0-4.3) H 01/11/22 13:02 Basophils % (Manual) 0 % (0.0-1.8) 01/11/22 13:02 Metamyelocytes % 0 % 01/11/22 13:02 Myelocytes % 0 % 01/11/22 13:02 Promyelocytes % 0 % 01/11/22 13:02 Blast Cells % 0 % 01/11/22 13:02 Nucleated RBC % Not Reportable 01/11/22 13:02 Seg Neutrophils # 4.6 K/mm3 (1.8-7.7) 01/14/22 10:51 Seg Neutrophils # Man 5.1 K/mm3 (1.8-7.7) 01/11/22 13:02 Band Neutrophils # 0.1 K/mm3 01/11/22 13:02 Lymphocytes # (Manual) 0.5 K/mm3 (1.2-5.4) L 01/11/22 13:02 Abs React Lymphs (Man) 0.0 K/mm3 01/11/22 13:02 Monocytes # (Manual) 0.3 K/mm3 (0.0-0.8) 01/11/22 13:02 Eosinophils # (Manual) 0.7 K/mm3 (0.0-0.4) H 01/11/22 13:02 Basophils # (Manual) 0.0 K/mm3 (0.0-0.1) 01/11/22 13:02 Metamyelocytes # 0.0 K/mm3 01/11/22 13:02 Myelocytes # 0.0 K/mm3 01/11/22 13:02 Promyelocytes # 0.0 K/mm3 01/11/22 13:02 Blast Cells # 0.0 K/mm3 01/11/22 13:02 WBC Morphology Not Reportable 01/11/22 13:02 Hypersegmented Neuts Not Reportable 01/11/22 13:02 Hyposegmented Neuts Not Reportable 01/11/22 13:02 Hypogranular Neuts Not Reportable 01/11/22 13:02 Smudge Cells Not Reportable 01/11/22 13:02 Toxic Granulation Not Reportable 01/11/22 13:02 Toxic Vacuolation Not Reportable 01/11/22 13:02 Dohle Bodies Not Reportable 01/11/22 13:02 Pelger-Huet Anomaly Not Reportable 01/11/22 13:02 Heri Rods Not Reportable 01/11/22 13:02 Platelet Estimate Consistent w auto 01/11/22 13:02 Clumped Platelets Not Reportable 01/11/22 13:02 Plt Clumps, EDTA Not Reportable 01/11/22 13:02 Large Platelets Not Reportable 01/11/22 13:02 Giant Platelets Not Reportable 01/11/22 13:02 Platelet Satelliting Not Reportable 01/11/22 13:02 Plt Morphology Comment Not Reportable 01/11/22 13:02 RBC Morphology Not Reportable 01/11/22 13:02 Dimorphic RBCs Not Reportable 01/11/22 13:02 Polychromasia Not Reportable 01/11/22 13:02 Hypochromasia 2+ 01/11/22 13:02 Poikilocytosis Not Reportable 01/11/22 13:02 Anisocytosis Not Reportable 01/11/22 13:02 Microcytosis Not Reportable 01/11/22 13:02 Macrocytosis 1+ 01/11/22 13:02 Spherocytes Not Reportable 01/11/22 13:02 Pappenheimer Bodies Not Reportable 01/11/22 13:02 Sickle Cells Not Reportable 01/11/22 13:02 Target Cells Not Reportable 01/11/22 13:02 Tear Drop Cells Not Reportable 01/11/22 13:02 Ovalocytes Not Reportable 01/11/22 13:02 Helmet Cells Not Reportable 01/11/22 13:02 Phelps-Ackerly Bodies Not Reportable 01/11/22 13:02 Comfort Rings Not Reportable 01/11/22 13:02 [place] Cells Not Reportable 01/11/22 13:02 Bite Cells Not Reportable 01/11/22 13:02 Crenated Cell Not Reportable 01/11/22 13:02 Elliptocytes Not Reportable 01/11/22 13:02 Acanthocytes (Spur) Not Reportable 01/11/22 13:02 Rouleaux Not Reportable 01/11/22 13:02 Hemoglobin C Crystals Not Reportable 01/11/22 13:02 Schistocytes Not Reportable 01/11/22 13:02 Malaria parasites Not Reportable 01/11/22 13:02 Jose Antonio Bodies Not Reportable 01/11/22 13:02 Hem Pathologist Commnt No 01/11/22 13:02 PT 15.8 Sec. (12.2-14.9) H 01/11/22 09:58 INR 1.13 (0.87-1.13) 01/11/22 09:58 Sodium 139 mmol/L (137-145) 01/15/22 09:42 Potassium 5.0 mmol/L (3.6-5.0) 01/15/22 09:42 Chloride 105.8 mmol/L (98-107) 01/15/22 09:42 Carbon Dioxide 25 mmol/L (22-30) 01/15/22 09:42 Anion Gap 13 mmol/L 01/15/22 09:42 BUN 48 mg/dL (9-20) H 01/15/22 09:42 Creatinine 6.2 mg/dL (0.8-1.3) H 01/15/22 09:42 Estimated GFR 11 ml/min 01/15/22 09:42 BUN/Creatinine Ratio 8 % 01/15/22 09:42 Glucose 82 mg/dL (75-100) 01/15/22 09:42 POC Glucose 72 mg/dL (70-105) 01/15/22 10:10 Calcium 7.6 mg/dL (8.4-10.2) L 01/15/22 09:42 Magnesium 2.20 mg/dL (1.7-2.3) 01/11/22 09:58 Total Bilirubin 0.20 mg/dL (0.1-1.2) 01/13/22 04:00 AST 14 units/L (5-40) 01/13/22 04:00 ALT 11 units/L (7-56) 01/13/22 04:00 Alkaline Phosphatase 43 units/L (35-129) 01/13/22 04:00 Total Protein 5.1 g/dL (6.3-8.2) L 01/13/22 04:00 Albumin 3.1 g/dL (3.9-5) L 01/13/22 04:00 Albumin/Globulin Ratio 1.6 % 01/13/22 04:00 Lipase 19 units/L (13-60) 01/11/22 09:58 Blood Type O POSITIVE 01/13/22 05:45 Antibody Screen Negative 01/13/22 05:45 Crossmatch See Detail 01/13/22 05:45 Breaux/IV: Voiding Method Incontinent Active Medications - Current Medications Current Medications: Generic Name Dose Route Start Last Admin Trade Name Freq PRN Reason Stop Dose Admin Acetaminophen 650 mg 01/11/22 16:00 Acetaminophen 325 Mg Tab PO Q4H PRN Pain MILD(1-3)/Fever >100.5/ESQUIVEL Hydromorphone HCl 0.5 mg 01/11/22 15:30 01/12/22 12:03 Hydromorphone 0.5 Mg/0.5 Ml Inj IV 0.5 mg Q3H PRN Administration Pain , Severe (7-10) Sodium Chloride 100 mls @ 999 mls/hr 01/12/22 10:30 Nacl 0.9% IV JUANITO PRN Hypotension Sodium Chloride 500 mls @ 0 mls/hr 01/14/22 21:00 01/14/22 21:25 Nacl 0.9% 500 Ml IV 10 mls/hr DIRECT CA Administration Per Protocol Dextrose/Sodium Chloride 1,000 mls @ 50 mls/hr 01/14/22 23:00 01/15/22 09:19 D5/0.45ns IV 50 mls/hr DIRECT CA Administration Insulin Human Lispro 0 unit 01/11/22 16:00 01/15/22 09:29 Insulin Lispro 100 Unit/Ml SUB-Q Not Given Q6H CA Protocol Morphine Sulfate 2 mg 01/11/22 15:30 Morphine 2 Mg/1 Ml Inj IV Q4H PRN Pain, Moderate (4-6) Ondansetron HCl 4 mg 01/11/22 15:30 Ondansetron 4 Mg/2 Ml Inj IV Q8H PRN Nausea And Vomiting Pantoprazole Sodium 40 mg 01/11/22 22:00 01/15/22 09:28 Pantoprazole 40 Mg Inj IV 40 mg BID CA Administration Sodium Chloride 10 ml 01/11/22 22:00 01/15/22 09:28 Sodium Chloride 0.9% 10 Ml Flush Syringe IV 10 ml BID CA Administration Sodium Chloride 10 ml 01/11/22 16:00 Sodium Chloride 0.9% 10 Ml Flush Syringe IV PRN PRN LINE FLUSH Nutrition/Malnutrition Assess - Dietary Evaluation Nutrition/Malnutrition Findings: Nutrition Notes Start: 01/12/22 15:00 Freq: Status: Active Protocol: Document 01/12/22 15:00 YNES (Rec: 01/12/22 15:29 YNES [id number]) Nutrition Notes 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 Current Diet NPO (since 01/12 00:01). Labs/Tests 01/12: BUN 65, Crea 8.5. Pertinent Medications 01/12: Nutritionally unremarkable. 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 Weight Status Underweight Subjective/Other Information RD consult for skin risk, risk of malnutrition and Low BMI assessments. Pt currently on NPO due a procedure on 01/13. Pt is on Room Air, O2 saturation @ 98%, according to Vital Signs notes. Plan for EGD/Colonoscopy on am, according to Progress notes. Pt presents GI Bleed (Melena/ Hematochezia), according to Progress notes. Pt shows no signs of concern for skin risk at the time, according to Physical Assessment History notes. Pt shows an unspecified area of concern for risk of malnutrition at the time, according to Physical Assessment History notes. Pt's Low BMI seems to correspond to a natural body composition, and not related to a sudden loss of body weight nor chronic malnutrition, since no signs of concern were mentioned in the Physical Assessment History or the Progress notes. Percent of energy/protein needs met: Pt currently on NPO. When pertinent, start on prescribed Clear Liquids Diet, which, provides for energy/ protein needs (590 Kcal/16 g) during LOS. Burn Absent Trauma Absent GI Symptoms Other Food Allergy No Skin Integrity/Comment Unspecified area of concern. 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 As Evidenced by Signs and Symptoms Pt presents GI Bleed (Melena/ Hematochezia), according to Progress notes. #1 Nutrition Diagnosis Underweight Comments: Pt's Low BMI seems to correspond to a natural body composition, and not related to a sudden loss of body weight nor chronic malnutrition, since no signs of concern were mentioned in the Physical Assessment History or the Progress notes. Etiology Uncertain. As Evidenced by Signs and Symptoms BMI: 18.2 Kg/m2. Is patient on ventilator? No Is Patient Ambulatory and/or Out of Bed No REE-([facility]-confined to bed) 1587.876 Kcal/Kg value to use for calculation 34 Approximate Energy Requirements Using 1851 kcal/Kg Calculation Used for Recommendations Kcal/kg Additional Notes Protein: >1.2 g/Kg ABW; >65 g/ day. Fluids: 1 ml/Kcal, or as per MD. Nutrition Intervention Change Diet Order: When pertinent, start Clear Liquids Diet as tolerated. Goal #1 Facilitate PO intake of meals with elemental, textural, or mechanical modification during LOS. Follow-Up By: 01/19/22 Additional Comments When pertinent, start monitoring food tolerance, %PO intake of meals, and BM.
--- NOTE | 2022-01-15 14:42 | Progress Note ---
Assessment and Plan - Patient Problems (1) Lower GI bleed Current Visit: Yes Status: Acute Plan to address problem: Lower GI bleed possible diverticular bleed versus AVM versus polyp. GI input appreciated. Bleeding source not identified on colonoscopy due to poor prep. CT angiogram did not show any source of bleeding. Rebleed yesterday. Hemoglob in has improved posttransfusion. Follow-up hemoglobin. Plan for CT angiogram with rebleed. We will dialyze tomorrow morning (2) Acute post-hemorrhagic anemia Current Visit: Yes Status: Acute Plan to address problem: Acute post hemorrhage anemia superimposed on anemia of chronic kidney disease. Hemoglobin has improved posttransfusion . Continue transfusion by primary attending. Follow-up hemoglobin. (3) BPH (benign prostatic hyperplasia) Current Visit: Yes Status: Chronic Qualifiers: Lower urinary tract symptom presence: symptoms present Plan to address problem: Continue medications (4) ESRD needing dialysis Current Visit: Yes Status: Chronic Plan to address problem: Hemodialysis on a Sunday, Sunday and Sunday schedule. Hemodialysis in the morning for shift (5) Hypertensive chronic kidney disease with stage 5 chronic kidney disease or end stage renal disease Current Visit: No Status: Chronic Plan to address problem: Follow-up blood pressure Subjective Date of service: 01/15/22 Principal diagnosis: End-stage renal disease, gastrointestinal bleeding Interval history: 61-year-old male with end-stage renal disease admitted with gastrointestinal bleeding. Patient had colonoscopy yesterday which showed diverticuli but with very poor prep and bleeding source could not be identified. CT of the abdomen earlier showed patient with aortic stent graft and aneurysm below that with very complex vascular anatomy. 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 Upper endoscopy showed mild gastritis and colonoscopy was nondiagnostic due to poor prep. Hemoglobin appeared to have stabilized posttransfusion. Yesterday, patient however had an episode of bloody stools with hemoglobin dropping to 5 g/dL. Was transfused overnight. Patient seen lying in bed. No longer having bloody stools today. He is in the ICU Objective - Exam Narrative Exam: Middle-aged -[place] male lying in bed in no acute distress HEENT: NCAT, pink oral mucous membrane Neck: Supple, no venous distention CVS: S1S2 RRR with no murmur, rub or gallop Chest: Clear to auscultation Abdomen: Protuberant, soft, nontender, no organomegaly, bowel sounds are present Extremities: No edema, Change Deferred Skin: Hyperpigmented and hypopigmented patches in both shins and legs Neuro: Awake, alert no focal deficits - Vital Signs Vital signs: Vital Signs - 12hr 01/15/22 01/15/22 01/15/22 02:41 02:51 03:01 Temperature Pulse Rate 70 70 69 Pulse Rate [ From Monitor] Respiratory 26 H 25 H 24 Rate Blood Pressure 148/73 148/73 148/73 O2 Sat by Pulse 100 100 100 Oximetry 01/15/22 01/15/22 01/15/22 03:11 03:21 03:31 Temperature Pulse Rate 78 72 70 Pulse Rate [ From Monitor] Respiratory 22 24 25 H Rate Blood Pressure 148/73 148/73 148/73 O2 Sat by Pulse 100 100 100 Oximetry 01/15/22 01/15/22 01/15/22 03:41 03:51 04:00 Temperature 98.9 F Pulse Rate 69 72 Pulse Rate [ From Monitor] Respiratory 23 23 Rate Blood Pressure 148/73 148/73 O2 Sat by Pulse 100 100 Oximetry 01/15/22 01/15/22 01/15/22 04:01 04:11 04:21 Temperature Pulse Rate 82 78 70 Pulse Rate [ From Monitor] Respiratory 22 27 H 24 Rate Blood Pressure 148/73 133/68 133/68 O2 Sat by Pulse 100 100 100 Oximetry 01/15/22 01/15/22 01/15/22 04:31 04:41 04:51 Temperature Pulse Rate 86 77 79 Pulse Rate [ From Monitor] Respiratory 22 27 H 27 H Rate Blood Pressure 133/68 133/68 133/68 O2 Sat by Pulse 99 Oximetry 01/15/22 01/15/22 01/15/22 05:01 05:11 05:21 Temperature Pulse Rate 79 76 74 Pulse Rate [ From Monitor] Respiratory 19 24 25 H Rate Blood Pressure 140/75 133/68 133/68 O2 Sat by Pulse 100 100 Oximetry 01/15/22 01/15/22 01/15/22 05:31 05:41 05:51 Temperature Pulse Rate 77 85 78 Pulse Rate [ From Monitor] Respiratory 29 H 25 H 32 H Rate Blood Pressure 133/68 133/68 133/68 O2 Sat by Pulse 100 100 100 Oximetry 01/15/22 01/15/22 01/15/22 06:01 06:11 06:21 Temperature Pulse Rate 72 77 73 Pulse Rate [ From Monitor] Respiratory 25 H 33 H 28 H Rate Blood Pressure 133/68 141/75 141/75 O2 Sat by Pulse 100 100 100 Oximetry 01/15/22 01/15/22 01/15/22 06:30 06:40 06:50 Temperature Pulse Rate 73 70 69 Pulse Rate [ From Monitor] Respiratory 24 23 25 H Rate Blood Pressure 141/75 141/75 O2 Sat by Pulse 100 100 100 Oximetry 01/15/22 01/15/22 01/15/22 07:00 07:10 07:20 Temperature Pulse Rate 69 80 79 Pulse Rate [ From Monitor] Respiratory 22 25 H 30 H Rate Blood Pressure 141/75 141/75 145/71 O2 Sat by Pulse 100 100 100 Oximetry 01/15/22 01/15/22 01/15/22 07:30 07:40 07:50 Temperature Pulse Rate 76 83 86 Pulse Rate [ From Monitor] Respiratory 26 H 21 21 Rate Blood Pressure 145/71 145/71 145/71 O2 Sat by Pulse 100 97 100 Oximetry 01/15/22 01/15/22 01/15/22 08:00 08:10 08:20 Temperature 97.7 F Pulse Rate 82 81 77 Pulse Rate [ 84 From Monitor] Respiratory 24 21 21 Rate Blood Pressure 149/81 149/81 149/81 O2 Sat by Pulse 100 100 93 Oximetry 01/15/22 01/15/22 01/15/22 08:30 08:40 08:50 Temperature Pulse Rate 84 80 76 Pulse Rate [ From Monitor] Respiratory 26 H 15 15 Rate Blood Pressure 149/81 149/81 149/81 O2 Sat by Pulse 96 100 100 Oximetry 01/15/22 01/15/22 01/15/22 09:00 09:10 09:17 Temperature Pulse Rate 76 78 84 Pulse Rate [ From Monitor] Respiratory 19 28 H Rate Blood Pressure 143/81 143/81 O2 Sat by Pulse 100 100 Oximetry 01/15/22 01/15/22 01/15/22 09:20 09:30 09:40 Temperature Pulse Rate 75 74 77 Pulse Rate [ From Monitor] Respiratory 25 H 26 H 19 Rate Blood Pressure 143/81 143/81 143/81 O2 Sat by Pulse 100 100 100 Oximetry 01/15/22 01/15/22 01/15/22 09:50 10:00 10:10 Temperature Pulse Rate 81 81 81 Pulse Rate [ From Monitor] Respiratory 19 33 H 23 Rate Blood Pressure 143/81 143/81 147/78 O2 Sat by Pulse 100 100 Oximetry 01/15/22 01/15/22 01/15/22 10:20 10:30 10:40 Temperature Pulse Rate 85 71 79 Pulse Rate [ From Monitor] Respiratory 18 24 22 Rate Blood Pressure 147/78 147/78 147/78 O2 Sat by Pulse 100 100 100 Oximetry 01/15/22 01/15/22 01/15/22 10:50 11:00 11:10 Temperature Pulse Rate 71 83 89 Pulse Rate [ From Monitor] Respiratory 24 22 29 H Rate Blood Pressure 147/78 147/78 147/78 O2 Sat by Pulse 100 100 100 Oximetry 01/15/22 01/15/22 01/15/22 11:20 11:30 11:31 Temperature 98 F Pulse Rate 89 85 89 Pulse Rate [ 89 From Monitor] Respiratory 33 H 37 H 14 Rate Blood Pressure 147/78 147/78 O2 Sat by Pulse 100 100 100 Oximetry 01/15/22 01/15/22 01/15/22 11:40 11:50 12:00 Temperature Pulse Rate 86 88 86 Pulse Rate [ From Monitor] Respiratory 29 H 23 27 H Rate Blood Pressure 147/78 152/77 140/84 O2 Sat by Pulse 99 100 100 Oximetry 01/15/22 01/15/22 01/15/22 12:10 12:20 12:30 Temperature Pulse Rate 86 83 86 Pulse Rate [ From Monitor] Respiratory 25 H 32 H 23 Rate Blood Pressure 140/84 140/84 140/84 O2 Sat by Pulse 99 100 100 Oximetry 01/15/22 01/15/22 01/15/22 12:40 12:50 13:00 Temperature Pulse Rate 84 90 79 Pulse Rate [ From Monitor] Respiratory 26 H 20 26 H Rate Blood Pressure 140/84 140/84 150/77 O2 Sat by Pulse 100 100 100 Oximetry 01/15/22 01/15/22 01/15/22 13:10 13:20 13:30 Temperature Pulse Rate 78 96 H 90 Pulse Rate [ From Monitor] Respiratory 20 22 29 H Rate Blood Pressure 150/77 150/77 150/77 O2 Sat by Pulse 100 Oximetry 01/15/22 01/15/22 01/15/22 13:40 13:50 14:04 Temperature Pulse Rate 85 83 90 Pulse Rate [ From Monitor] Respiratory 32 H 29 H 22 Rate Blood Pressure 150/77 150/77 150/77 O2 Sat by Pulse Oximetry 01/15/22 01/15/22 14:10 14:20 Temperature Pulse Rate 93 H 86 Pulse Rate [ From Monitor] Respiratory 16 30 H Rate Blood Pressure 147/79 147/79 O2 Sat by Pulse 100 97 Oximetry - Lab 01/15/22 05:33 01/15/22 09:42 Most recent lab results Calcium 7.6 mg/dL (8.4-10.2) L 01/15/22 09:42 Magnesium 2.20 mg/dL (1.7-2.3) 01/11/22 09:58 Medications & Allergies - Medications Allergies/Adverse Reactions: Allergies No Known Allergies Allergy (Verified 01/11/22 09:20) Home Medications: Home Medications Medication Instructions Recorded Confirmed Last Taken Type Tamsulosin [Flomax] 0.4 mg PO QDAY #30 cap 01/07/20 Unknown Rx Bacitracin Zinc Oint [Antibiotic 1 applicatio TP BID #1 tube 03/21/20 Unknown Rx Oint] Benzonatate [Tessalon Perles] 100 mg PO Q8HR PRN #20 capsule 03/21/20 Unknown Rx Active Medications: Generic Name Dose Route Start Last Admin Trade Name Freq PRN Reason Stop Dose Admin Acetaminophen 650 mg 01/11/22 16:00 Acetaminophen 325 Mg Tab PO Q4H PRN Pain MILD(1-3)/Fever >100.5/ESQUIVEL Hydromorphone HCl 0.5 mg 01/11/22 15:30 01/12/22 12:03 Hydromorphone 0.5 Mg/0.5 Ml Inj IV 0.5 mg Q3H PRN Administration Pain , Severe (7-10) Sodium Chloride 100 mls @ 999 mls/hr 01/12/22 10:30 Nacl 0.9% IV JUANITO PRN Hypotension Sodium Chloride 500 mls @ 0 mls/hr 01/14/22 21:00 01/14/22 21:25 Nacl 0.9% 500 Ml IV 10 mls/hr DIRECT CA Administration Per Protocol Dextrose/Sodium Chloride 1,000 mls @ 50 mls/hr 01/14/22 23:00 01/15/22 09:19 D5/0.45ns IV 50 mls/hr DIRECT CA Administration Insulin Human Lispro 0 unit 01/11/22 16:00 01/15/22 09:29 Insulin Lispro 100 Unit/Ml SUB-Q Not Given Q6H CA Protocol Morphine Sulfate 2 mg 01/11/22 15:30 Morphine 2 Mg/1 Ml Inj IV Q4H PRN Pain, Moderate (4-6) Ondansetron HCl 4 mg 01/11/22 15:30 Ondansetron 4 Mg/2 Ml Inj IV Q8H PRN Nausea And Vomiting Pantoprazole Sodium 40 mg 01/11/22 22:00 01/15/22 09:28 Pantoprazole 40 Mg Inj IV 40 mg BID CA Administration Sodium Chloride 10 ml 01/11/22 22:00 01/15/22 09:28 Sodium Chloride 0.9% 10 Ml Flush Syringe IV 10 ml BID CA Administration Sodium Chloride 10 ml 01/11/22 16:00 Sodium Chloride 0.9% 10 Ml Flush Syringe IV PRN PRN LINE FLUSH
[2022-01-15 15:29] LABS: Hemoglobin 7.8 gm/dl (11.8-15.2); Mean Corpuscular HGB Conc 31 % (32-34); Mean Corpuscular Volume 99 fl (84-94); Platelet Count 122 K/mm3 (140-440); Red Blood Count 2.53 M/mm3 (3.65-5.03)
[2022-01-15 15:30] LABS: Red Cell Distribution Width 20.3 % (13.2-15.2)
--- NOTE | 2022-01-15 15:42 | Cat Scan Report ---
CTA ABDOMEN AND PELVIS INDICATION / CLINICAL INFORMATION: Gastrointestinal bleed. TECHNIQUE: Axial CT images were obtained through the abdomen and pelvis after injection of Omnipaque 350, 100 cc IV contrast. 3 plane MIP and/or 3D reconstructions were produced. All CT scans at this [facility] are performed using CT dose reduction for ALARA by means of automated exposure control. COMPARISON: CT abdomen and pelvis 01/13/2022. FINDINGS: ABDOMINAL AORTA: - Dissection: Previous placement of thoracic aortic stent graft. Aneurysmal dilatation with dissectio n at the distal thoracic and abdominal aorta is again noted. No active bleeding from the aorta or its branches identified. Evaluation is limited by contrast material within the bowel. CELIAC TRUNK: No significant abnormality. SUPERIOR MESENTERIC ARTERY: Chronically occluded with reconstitution. RENAL ARTERIES: No significant narrowing. INFERIOR MESENTERIC ARTERY: Occluded proximally. RIGHT ILIAC ARTERIES: Aneurysmal dilatation with dissection involves the common and proximal external iliac artery. LEFT ILIAC ARTERIES: Aneurysmal dilatation with dissection involves the common and external iliac art renato.. RIGHT FEMORAL ARTERIES: No acute abnormality. No significant atherosclerosis. LEFT FEMORAL ARTERIES: No acute abnormality. No significant atherosclerosis. ABDOMINOPELVIC VEINS: Single IVC of normal caliber to the right of midline. IVC filter. ADDITIONAL ABDOMINOPELVIC FINDINGS: The kidneys remain small. Vicarious excretion via the gallbladder . SKELETAL SYSTEM: No significant abnormality. IMPRESSION: 1. 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 2. 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 3. No active bleeding site identified. Evaluation is limited by contrast material within the bowel. Signer Name: Rakan Bravo MD Signed: 01/15/2022 3:38 PM Workstation Name: [id number]
[2022-01-15 22:15] LABS: Hematocrit 32.1 % (35.5-45.6); Hemoglobin 10.4 gm/dl (11.8-15.2)
[2022-01-16] MEDS: D5W/0.45% NACL 1,000 ML IV SCH (01:01)
[2022-01-16 04:58] LABS: Hematocrit 29.8 % (35.5-45.6); Hemoglobin 9.9 gm/dl (11.8-15.2); Mean Corpuscular HGB Conc 33 % (32-34); Mean Corpuscular Volume 93 fl (84-94); Platelet Count 110 K/mm3 (140-440); Red Blood Count 3.19 M/mm3 (3.65-5.03); Red Cell Distribution Width 18.9 % (13.2-15.2)
[2022-01-16] MEDS: INSULIN LISPRO 100 UNIT/ML SUB-Q SCH ×5 (05:47→23:37)
[2022-01-16] MEDS: ACETAMINOPHEN 325 MG TAB PO PRN (07:34)
[2022-01-16] MEDS ORDERED: DEXTROSE 50% IN WATER (25GM) 50 ML SYRINGE IV PRN (07:43)
[2022-01-16] MEDS ORDERED: hydrALAZINE 20 MG/1 ML INJ IV PRN (07:45)
--- NOTE | 2022-01-16 08:18 | Event Note ---
Date: 01/16/22 Consulted on patient for GI bleed of unknown origin. Spoke with nurse practitioner yesterday in detail about patient's overall status. Patient is stable he was transfused 1 unit of blood overnight. I reviewed his chart and his labs responded appropriately. There is no documentation of continued bleed. Will evaluate patient today and give official consultation.
[2022-01-16] MEDS: PANTOPRAZOLE 40 MG INJ IV SCH ×2 (10:39→21:02)
[2022-01-16] MEDS: DEXTROSE 10% IN WATER 1,000 ML IV SCH (10:41)
--- NOTE | 2022-01-16 10:50 | Progress Note ---
Assessment and Plan 61 y/o male with suspected lower GI bleed 01/16/22: Spoke with IR who agreed to reach out with surgery. Now we have a plan in place. No transfer. HD now and then obtain tagged RBC scan once he is able to lie flat. PRBC's should be hospice care consultant if needed. Continue liquid diet. Most likely will need total colectomy based on discussion with surgery. Guarded to poor prognosis. 1. Q6hour H/H's. 2. Transfuse for Hemoglobin <7 3. Per GI clear liquid diet 4. IMS speaking with vascular. Reviewed their note from earlier in the stay. N ot sure if stat CTA is going to be helpful as vascular commented that he would not be a good candidate for intervention on their part and suggested transfer to tertiary care. Subjective Date of service: 01/16/22 Principal diagnosis: End-stage renal disease, gastrointestinal bleeding Interval history: Another episode of bleeding on yesterday. Repeat CTA done at request of GI. No help. Transfused 2 more units of PRBC's. Short of breath this am, not able to lie flat. Needs HD for volume removal. Objective - Constitutional Vitals: Vital Signs - 12hr 01/15/22 01/15/22 01/16/22 23:00 23:30 00:00 Temperature 99.6 F Pulse Rate 92 H 85 89 Pulse Rate [ From Monitor] Respiratory 17 20 22 Rate Blood Pressure 159/105 159/105 166/90 Blood Pressure [Right] O2 Sat by Pulse 100 100 100 Oximetry 01/16/22 01/16/22 01/16/22 00:04 00:30 01:00 Temperature Pulse Rate 89 93 H 95 H Pulse Rate [ From Monitor] Respiratory 16 20 22 Rate Blood Pressure 166/90 166/90 166/98 Blood Pressure [Right] O2 Sat by Pulse 100 100 100 Oximetry 01/16/22 01/16/22 01/16/22 01:30 02:00 02:30 Temperature Pulse Rate 99 H 88 92 H Pulse Rate [ From Monitor] Respiratory 18 26 H 24 Rate Blood Pressure 166/98 174/91 174/91 Blood Pressure [Right] O2 Sat by Pulse 100 100 100 Oximetry 01/16/22 01/16/22 01/16/22 03:00 03:30 04:00 Temperature 98.2 F Pulse Rate 91 H 86 91 H Pulse Rate [ From Monitor] Respiratory 15 25 H 27 H Rate Blood Pressure 167/92 167/92 167/92 Blood Pressure [Right] O2 Sat by Pulse 98 100 100 Oximetry 01/16/22 01/16/22 01/16/22 05:00 06:00 07:00 Temperature Pulse Rate 86 94 H 95 H Pulse Rate [ From Monitor] Respiratory 22 24 22 Rate Blood Pressure 154/95 155/90 174/93 Blood Pressure [Right] O2 Sat by Pulse 100 100 100 Oximetry 01/16/22 01/16/22 01/16/22 07:13 08:00 09:00 Temperature 98.8 F Pulse Rate 91 H 84 Pulse Rate [ 75 From Monitor] Respiratory 24 22 Rate Blood Pressure 170/96 170/96 Blood Pressure [Right] O2 Sat by Pulse 100 100 Oximetry 01/16/22 09:16 Temperature Pulse Rate Pulse Rate [ From Monitor] Respiratory Rate Blood Pressure Blood Pressure 148/77 [Right] O2 Sat by Pulse Oximetry - Labs CBC & Chem 7: 01/16/22 04:07 01/16/22 04:07 Labs: Abnormal lab results 01/13/22 01/15/22 01/15/22 Range/Units 05:45 09:42 15:14 WBC 11.4 H (4.5-11.0) K/mm3 RBC 2.53 L (3.65-5.03) M/mm3 Hgb 7.8 L (11.8-15.2) gm/dl Hct 25.0 L (35.5-45.6) % MCV 99 H (84-94) fl MCHC 31 L (32-34) % RDW 20.3 H (13.2-15.2) % Plt Count 122 L D (140-440) K/mm3 Potassium (3.6-5.0) mmol/L Chloride (98-107) mmol/L Carbon Dioxide (22-30) mmol/L BUN 48 H (9-20) mg/dL Creatinine 6.2 H (0.8-1.3) mg/dL POC Glucose (70-105) mg/dL Calcium 7.6 L (8.4-10.2) mg/dL Phosphorus (2.5-4.5) mg/dL Crossmatch See Detail 01/15/22 01/15/22 01/16/22 Range/Units 17:23 21:59 00:51 WBC (4.5-11.0) K/mm3 RBC (3.65-5.03) M/mm3 Hgb 10.4 L (11.8-15.2) gm/dl Hct 32.1 L D (35.5-45.6) % MCV (84-94) fl MCHC (32-34) % RDW (13.2-15.2) % Plt Count (140-440) K/mm3 Potassium (3.6-5.0) mmol/L Chloride (98-107) mmol/L Carbon Dioxide (22-30) mmol/L BUN (9-20) mg/dL Creatinine (0.8-1.3) mg/dL POC Glucose 66 L 66 L (70-105) mg/dL Calcium (8.4-10.2) mg/dL Phosphorus (2.5-4.5) mg/dL Crossmatch 01/16/22 01/16/22 01/16/22 Range/Units 01:29 04:07 04:07 WBC 12.6 H (4.5-11.0) K/mm3 RBC 3.19 L (3.65-5.03) M/mm3 Hgb 9.9 L (11.8-15.2) gm/dl Hct 29.8 L (35.5-45.6) % MCV (84-94) fl MCHC (32-34) % RDW 18.9 H (13.2-15.2) % Plt Count 110 L (140-440) K/mm3 Potassium 6.3 H* D (3.6-5.0) mmol/L Chloride 111.3 H (98-107) mmol/L Carbon Dioxide 17 L D (22-30) mmol/L BUN 49 H (9-20) mg/dL Creatinine 6.1 H (0.8-1.3) mg/dL POC Glucose 69 L (70-105) mg/dL Calcium 8.0 L (8.4-10.2) mg/dL Phosphorus 6.80 H (2.5-4.5) mg/dL Crossmatch 01/16/22 Range/Units 05:33 WBC (4.5-11.0) K/mm3 RBC (3.65-5.03) M/mm3 Hgb (11.8-15.2) gm/dl Hct (35.5-45.6) % MCV (84-94) fl MCHC (32-34) % RDW (13.2-15.2) % Plt Count (140-440) K/mm3 Potassium (3.6-5.0) mmol/L Chloride (98-107) mmol/L Carbon Dioxide (22-30) mmol/L BUN (9-20) mg/dL Creatinine (0.8-1.3) mg/dL POC Glucose 54 L (70-105) mg/dL Calcium (8.4-10.2) mg/dL Phosphorus (2.5-4.5) mg/dL Crossmatch Medications & Allergies - Medications Allergies/Adverse Reactions: Allergies No Known Allergies Allergy (Verified 01/11/22 09:20) Home Medications: Home Medications Medication Instructions Recorded Confirmed Last Taken Type Tamsulosin [Flomax] 0.4 mg PO QDAY #30 cap 01/07/20 01/16/22 Unknown Rx Bacitracin Zinc Oint [Antibiotic 1 applicatio TP BID #1 tube 03/21/20 01/16/22 Unknown Rx Oint] Benzonatate [Tessalon Perles] 100 mg PO Q8HR PRN #20 capsule 03/21/20 01/16/22 Unknown Rx Acetaminophen [Tylenol] 325 mg PO Q6H PRN 01/16/22 01/16/22 Unknown History Amiodarone [Cordarone 200 MG TAB] 200 mg PO QDAY 01/16/22 01/16/22 Unknown History Aspirin [Vazalore] 81 mg PO QDAY 01/16/22 01/16/22 Unknown History Atorvastatin [Lipitor Tab] 80 mg PO QHS 01/16/22 01/16/22 Unknown History Calcium Acetate [Phoslo] 667 mg PO QDAY 01/16/22 01/16/22 Unknown History Ergocalciferol (Vitamin D2) 1,250 mcg PO QDAY 01/16/22 01/16/22 Unknown History [Drisdol] Glycerin/Propylene Glycol 30 ml OP QDAY PRN 01/16/22 01/16/22 Unknown History [Artificial Tears Drops] Insulin Lispro [Admelog] See Protocol SQ ACHS 01/16/22 01/16/22 Unknown History Lactobacillus Acidophilus 0.5 mg PO QDAY 01/16/22 01/16/22 Unknown History [Acidophilus Probiotic] Lactulose [Cephulac] 20 gm PO BID PRN 01/16/22 01/16/22 Unknown History Mag Hydrox/Aluminum Hyd/Simeth 10 ml PO QDAY 01/16/22 01/16/22 Unknown History [Mylanta Maximum Strength Pkt] Melatonin [Melatonin 5MG CAP] 5 mg PO QHS 01/16/22 01/16/22 Unknown History Omeprazole Magnesium [PriLOSEC Otc] 20 mg PO QDAY 01/16/22 01/16/22 Unknown History Sennosides Tab [Senokot] 8.6 mg PO BID PRN 01/16/22 01/16/22 Unknown History Torsemide [Demadex] 100 mg PO QDAY 01/16/22 01/16/22 Unknown History Vit B Comp No.3/Folic/C/Biotin 1 tab PO QDAY 01/16/22 01/16/22 Unknown History [Prisca-Theodore Rx Tablet] amLODIPine 10 mg PO QDAY 01/16/22 01/16/22 Unknown History carvediloL [Coreg] 6.25 mg PO BID 01/16/22 01/16/22 Unknown History megestroL [Megace] 40 mg PO QDAY 01/16/22 01/16/22 Unknown History polyethylene glycoL 3350 [Miralax 17 gm PO BID PRN 01/16/22 01/16/22 Unknown History 3350] Active Medications: Generic Name Dose Route Start Last Admin Trade Name Freq PRN Reason Stop Dose Admin Acetaminophen 650 mg 01/11/22 16:00 01/16/22 07:34 Acetaminophen 325 Mg Tab PO 650 mg Q4H PRN Administration Pain MILD(1-3)/Fever >100.5/ESQUIVEL Dextrose 50 ml 01/16/22 07:43 Dextrose 50% In Water (25gm) 50 Ml Syringe IV Q30MIN PRN Hypoglycemia Protocol Hydralazine HCl 10 mg 01/16/22 07:45 Hydralazine 20 Mg/1 Ml Inj IV Q4HR PRN Hypertension Sodium Chloride 100 mls @ 999 mls/hr 01/12/22 10:30 Nacl 0.9% IV JUANITO PRN Hypotension Sodium Chloride 500 mls @ 0 mls/hr 01/14/22 21:00 01/14/22 21:25 Nacl 0.9% 500 Ml IV 10 mls/hr DIRECT CA Administration Per Protocol Dextrose 1,000 mls @ 50 mls/hr 01/16/22 10:00 D10w IV DIRECT CA Insulin Human Lispro 0 unit 01/16/22 06:00 01/16/22 05:47 Insulin Lispro 100 Unit/Ml SUB-Q Not Given Q6H [facility] Protocol Ondansetron HCl 4 mg 01/11/22 15:30 Ondansetron 4 Mg/2 Ml Inj IV Q8H PRN Nausea And Vomiting Pantoprazole Sodium 40 mg 01/11/22 22:00 01/15/22 21:12 Pantoprazole 40 Mg Inj IV 40 mg BID CA Administration Sodium Chloride 10 ml 01/11/22 22:00 01/15/22 21:13 Sodium Chloride 0.9% 10 Ml Flush Syringe IV 10 ml BID CA Administration Sodium Chloride 10 ml 01/11/22 16:00 Sodium Chloride 0.9% 10 Ml Flush Syringe IV PRN PRN LINE FLUSH
--- NOTE | 2022-01-16 11:08 | Progress Note ---
Assessment and Plan - Patient Problems (1) Hyperkalemia Current Visit: No Status: Acute Plan to address problem: we will treat with hemodialysis this morning. Please maintain patient on low potassium diet. Per nursing staff he is currently on clear liquids. (2) Lower GI bleed Current Visit: Yes Status: Acute Plan to address problem: no recurrent episodes overnight. Hemoglobin/hematocrit levels are stable. GI recommendations reviewed. Nuclear medicine bleeding scan pending. We will continue to follow closely. (3) ESRD needing dialysis Current Visit: Yes Status: Chronic Plan to address problem: continue hemodialysis treatment on the inpatient Sunday/Sunday/Sunday HD schedule. Discussed with nursing staff and agree with decreasing rate of fluid hydration given his increased work of breathing/shortness of breath morning. He is now on 3 L of oxygen via nasal cannula. (4) HTN (hypertension) Current Visit: Yes Status: Chronic Qualifiers: Hypertension type: primary hypertension Qualified Code(s): I10 - Essential (primary) hypertension Plan to address problem: overall blood pressures are remaining stable at this time and we will continue to monitor closely. Subjective Principal diagnosis: End-stage renal disease, gastrointestinal bleeding Interval history: No acute issues this morning. Per nursing staff he did not have any more bleeding episodes overnight. Plan for hemodialysis this morning. Objective - Vital Signs Vital signs: Vital Signs - 12hr 01/15/22 01/16/22 01/16/22 23:30 00:00 00:04 Temperature 99.6 F Pulse Rate 85 89 89 Pulse Rate [ From Monitor] Respiratory 20 22 16 Rate Blood Pressure 159/105 166/90 166/90 Blood Pressure [Right] O2 Sat by Pulse 100 100 100 Oximetry 01/16/22 01/16/22 01/16/22 00:30 01:00 01:30 Temperature Pulse Rate 93 H 95 H 99 H Pulse Rate [ From Monitor] Respiratory 20 22 18 Rate Blood Pressure 166/90 166/98 166/98 Blood Pressure [Right] O2 Sat by Pulse 100 100 100 Oximetry 01/16/22 01/16/22 01/16/22 02:00 02:30 03:00 Temperature Pulse Rate 88 92 H 91 H Pulse Rate [ From Monitor] Respiratory 26 H 24 15 Rate Blood Pressure 174/91 174/91 167/92 Blood Pressure [Right] O2 Sat by Pulse 100 100 98 Oximetry 01/16/22 01/16/22 01/16/22 03:30 04:00 05:00 Temperature 98.2 F Pulse Rate 86 91 H 86 Pulse Rate [ From Monitor] Respiratory 25 H 27 H 22 Rate Blood Pressure 167/92 167/92 154/95 Blood Pressure [Right] O2 Sat by Pulse 100 100 100 Oximetry 01/16/22 01/16/22 01/16/22 06:00 07:00 07:13 Temperature 98.8 F Pulse Rate 94 H 95 H Pulse Rate [ From Monitor] Respiratory 24 22 Rate Blood Pressure 155/90 174/93 Blood Pressure [Right] O2 Sat by Pulse 100 100 Oximetry 01/16/22 01/16/22 01/16/22 08:00 09:00 09:16 Temperature Pulse Rate 91 H 84 Pulse Rate [ 75 From Monitor] Respiratory 24 22 Rate Blood Pressure 170/96 170/96 Blood Pressure 148/77 [Right] O2 Sat by Pulse 100 100 Oximetry - General Appearance General appearance: appears stated age, frail EENT: ATNC Neck: no JVD, no thyromegaly Respiratory: Present: Wheezes Cardiology: regular Gastrointestinal: normal Integumentary: warm and dry Neurologic: no focal deficit Musculoskeletal: deferred Psychiatric: cooperative - Lab 01/16/22 04:07 01/16/22 04:07 Most recent lab results Calcium 8.0 mg/dL (8.4-10.2) L 01/16/22 04:07 Phosphorus 6.80 mg/dL (2.5-4.5) H 01/16/22 04:07 Magnesium 1.90 mg/dL (1.7-2.3) 01/16/22 04:07 - Allied health notes Allied health notes reviewed: nursing Medications & Allergies - Medications Allergies/Adverse Reactions: Allergies No Known Allergies Allergy (Verified 01/11/22 09:20) Home Medications: Home Medications Medication Instructions Recorded Confirmed Last Taken Type Tamsulosin [Flomax] 0.4 mg PO QDAY #30 cap 01/07/20 01/16/22 Unknown Rx Bacitracin Zinc Oint [Antibiotic 1 applicatio TP BID #1 tube 03/21/20 01/16/22 Unknown Rx Oint] Benzonatate [Tessalon Perles] 100 mg PO Q8HR PRN #20 capsule 03/21/20 01/16/22 Unknown Rx Acetaminophen [Tylenol] 325 mg PO Q6H PRN 01/16/22 01/16/22 Unknown History Amiodarone [Cordarone 200 MG TAB] 200 mg PO QDAY 01/16/22 01/16/22 Unknown History Aspirin [Vazalore] 81 mg PO QDAY 01/16/22 01/16/22 Unknown History Atorvastatin [Lipitor Tab] 80 mg PO QHS 01/16/22 01/16/22 Unknown History Calcium Acetate [Phoslo] 667 mg PO QDAY 01/16/22 01/16/22 Unknown History Ergocalciferol (Vitamin D2) 1,250 mcg PO QDAY 01/16/22 01/16/22 Unknown History [Drisdol] Glycerin/Propylene Glycol 30 ml OP QDAY PRN 01/16/22 01/16/22 Unknown History [Artificial Tears Drops] Insulin Lispro [Admelog] See Protocol SQ ACHS 01/16/22 01/16/22 Unknown History Lactobacillus Acidophilus 0.5 mg PO QDAY 01/16/22 01/16/22 Unknown History [Acidophilus Probiotic] Lactulose [Cephulac] 20 gm PO BID PRN 01/16/22 01/16/22 Unknown History Mag Hydrox/Aluminum Hyd/Simeth 10 ml PO QDAY 01/16/22 01/16/22 Unknown History [Mylanta Maximum Strength Pkt] Melatonin [Melatonin 5MG CAP] 5 mg PO QHS 01/16/22 01/16/22 Unknown History Omeprazole Magnesium [PriLOSEC Otc] 20 mg PO QDAY 01/16/22 01/16/22 Unknown History Sennosides Tab [Senokot] 8.6 mg PO BID PRN 01/16/22 01/16/22 Unknown History Torsemide [Demadex] 100 mg PO QDAY 01/16/22 01/16/22 Unknown History Vit B Comp No.3/Folic/C/Biotin 1 tab PO QDAY 01/16/22 01/16/22 Unknown History [Prisca-Theodore Rx Tablet] amLODIPine 10 mg PO QDAY 01/16/22 01/16/22 Unknown History carvediloL [Coreg] 6.25 mg PO BID 01/16/22 01/16/22 Unknown History megestroL [Megace] 40 mg PO QDAY 01/16/22 01/16/22 Unknown History polyethylene glycoL 3350 [Miralax 17 gm PO BID PRN 01/16/22 01/16/22 Unknown History 3350] Active Medications: Generic Name Dose Route Start Last Admin Trade Name Carlos PRN Reason Stop Dose Admin Acetaminophen 650 mg 01/11/22 16:00 01/16/22 07:34 Acetaminophen 325 Mg Tab PO 650 mg Q4H PRN Administration Pain MILD(1-3)/Fever >100.5/ESQUIVEL Dextrose 50 ml 01/16/22 07:43 Dextrose 50% In Water (25gm) 50 Ml Syringe IV Q30MIN PRN Hypoglycemia Protocol Hydralazine HCl 10 mg 01/16/22 07:45 Hydralazine 20 Mg/1 Ml Inj IV Q4HR PRN Hypertension Sodium Chloride 100 mls @ 999 mls/hr 01/12/22 10:30 Nacl 0.9% IV JUANITO PRN Hypotension Sodium Chloride 500 mls @ 0 mls/hr 01/14/22 21:00 01/14/22 21:25 Nacl 0.9% 500 Ml IV 10 mls/hr DIRECT CA Administration Per Protocol Dextrose 1,000 mls @ 50 mls/hr 01/16/22 10:00 01/16/22 10:41 D10w IV 50 mls/hr DIRECT CA Administration Insulin Human Lispro 0 unit 01/16/22 06:00 01/16/22 05:47 Insulin Lispro 100 Unit/Ml SUB-Q Not Given Q6H CA Protocol Ondansetron HCl 4 mg 01/11/22 15:30 Ondansetron 4 Mg/2 Ml Inj IV Q8H PRN Nausea And Vomiting Pantoprazole Sodium 40 mg 01/11/22 22:00 01/16/22 10:39 Pantoprazole 40 Mg Inj IV 40 mg BID CA Administration Sodium Chloride 10 ml 01/11/22 22:00 01/16/22 10:40 Sodium Chloride 0.9% 10 Ml Flush Syringe IV 10 ml BID CA Administration Sodium Chloride 10 ml 01/11/22 16:00 Sodium Chloride 0.9% 10 Ml Flush Syringe IV PRN PRN LINE FLUSH
[2022-01-16] MEDS: DEXTROSE 50% IN WATER (25GM) 50 ML SYRINGE IV PRN (11:09)
--- NOTE | 2022-01-16 12:10 | Event Note ---
Date: 01/16/22 61-year-old male with history of dissection status postrepair with false lumen providing celiac artery flow, HOLLIE appearing occluded at the ostium, and SMA with occlusion and reconstitution. Given the dissection, and multiple occlusions within the mesenteric vessels, patient is not a candidate for embolization. If the patient requires further treatment, then patient would require colectomy. Colectomy places patient at risk for ischemic bowel due to collaterals which will need to be preserved. Complicated situation. Discussed with Dr. Hartman and Dr. Adair.
--- NOTE | 2022-01-16 12:33 | Progress Note ---
<ELOISAMARTHA JohnstonJarek - Last Filed: 01/16/22 12:37> Assessment and Plan Assessment and plan: This is a 62-year-old male with ESRD on HD, HTN, CABG x2, s/p thoracic aortic stent, BPH and DM admitted with GI bleeding Neuro: NAD -Reorientation as needed -Maintain sleep-wake cycle -As needed analgesia Cardiac: h/o HTN, CABG x2, thoracic aortic aneurysm s/p repair -Hydralazine prn -Blood pressure monitoring per protocol Respiratory: Acute hypoxic respiratory failure -Supplemental oxygen as needed -SPO2 monitor per protocol -Pulmonary hygiene GI: LGIB, moderate protein calorie malnutrition -GI, IR, surgery consulted, appreciate recommendations -Abdomen pelvis CT showed previous placement of thoracic aortic stent graft, 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 Collaterals presumably chronic, gallstones -S/p EGD and 01/12 which showed normal esophagus, mild erythematous mucosa in the antrum of of the body, biopsies obtained, normal duodenum, biopsies obtained and no source of GI bleeding found -S/p colonoscopy on 01/12 due to feeling poor quality however likely diverticular bleed -01/13 CTA abdomen/pelvis showed mild diverticular disease throughout the colon with endoluminal opacification of nearly all of the colon suggesting oral contrast however patient did have a history of oral contrast administration in addition To saturations would include carious excretion of contrast from the gallbladder however this appears out of proportion therefore hemorrhage should be considered, no clear source is identified, redemonstrated vascular disease without change -01/15 CTA abdomen/pelvis previous placement of thoracic aortic stent graft with aneurysm of the thoracic abdominal aorta extending into the iliacs bilaterally, 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 ACHS -Long-acting insulin, titrate as needed Heme: Acute on chronic anemia of chronic disease, GIB -Presented with GI bleed -Multiple episodes of GI bleed noted throughout stay -S/p 5 unit prbc -h/h q 8 hours -Trend CBC -Transfuse hemoglobin less than 7 -SCDs to BLE while in bed The high probability of a clinically significant, sudden or life threatening deterioration of the [GIB] system(s) required my full and direct attention, intervention and personal management. The aggregate critical care time was [60] minutes. This time is in addition to time spent performing reported procedures but includes the following: [x] Data Review and interpretation [x] Patient assessment and monitoring of vital signs [x] Documentation [x] Medication orders and management Disposition Plan: icu Total Time Spent with Patient (Minutes): 60 History Interval history: This is a 62-year-old male with ESRD on HD, HTN, CABG x2, s/p thoracic aortic stent, BPH and DM who presented to the emergency department on 01/11 with complaints of GI bleed. Patient states that he has had 2 episodes of lower GI bleed, black tarry stools noted. 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 Patient was admitted to the hospitalist service with consults to GI, vascular surgery, nephrology with GI bleeding. ICU course to date: 01/15: Patient was transferred to ICU for closer monitoring yesterday afternoon after second episode of GI bleeding was noted and he had a repeat CTA abdomen/pelvis. Patient's hemoglobin dropped to 5 yesterday and was given 2 units PRBC. GI recommends obtaining another CTA if recurrence of GI bleeding noted. 01/16: Patient will get HD today and possibly 25 DC tomorrow. Added hydralazine as needed for hypertension. Started D10 drip due to persistent hypoglycemia. Hospitalist Physical - Constitutional Vitals: Temp Pulse Resp BP Pulse Ox 99.1 F 85 26 H 162/88 100 01/16/22 11:43 01/16/22 12:00 01/16/22 12:00 01/16/22 12:00 01/16/22 12:00 General appearance: Present: no acute distress, other (appears older than stated age) - EENT Eyes: Present: PERRL, EOM intact ENT: poor dentition - Neck Neck: Present: normal ROM - Respiratory Respiratory effort: normal Respiratory: bilateral: diminished - Cardiovascular Rhythm: regular Heart Sounds: Present: S1 & S2. Absent: systolic murmur, diastolic murmur - Extremities Extremities: no ischemia, pulses intact, pulses symmetrical, normal temperature, normal color Extremity abnormal: edema Peripheral Pulses: within normal limits - Abdominal General gastrointestinal: soft, non-tender, non-distended, normal bowel sounds - Integumentary Integumentary: Present: warm, dry - Psychiatric Psychiatric: cooperative - Neurologic Neurologic: CNII-XII intact, no focal deficits, moves all extremities - Allied Health Allied health notes reviewed: nursing, RT, social work Results - Labs CBC & Chem 7: 01/16/22 04:07 01/16/22 04:07 Labs: Laboratory Last Values WBC 12.6 K/mm3 (4.5-11.0) H 01/16/22 04:07 RBC 3.19 M/mm3 (3.65-5.03) L 01/16/22 04:07 Hgb 9.9 gm/dl (11.8-15.2) L 01/16/22 04:07 Hct 29.8 % (35.5-45.6) L 01/16/22 04:07 MCV 93 fl (84-94) 01/16/22 04:07 MCH 31 pg (28-32) 01/16/22 04:07 MCHC 33 % (32-34) 01/16/22 04:07 RDW 18.9 % (13.2-15.2) H 01/16/22 04:07 Plt Count 110 K/mm3 (140-440) L 01/16/22 04:07 Lymph % (Auto) 16.9 % (13.4-35.0) 01/14/22 10:51 [place] % (Auto) 8.4 % (0.0-7.3) H 01/14/22 10:51 Eos % (Auto) 5.7 % (0.0-4.3) H 01/14/22 10:51 Baso % (Auto) 0.4 % (0.0-1.8) 01/14/22 10:51 Lymph # (Auto) 1.1 K/mm3 (1.2-5.4) L 01/14/22 10:51 [place] # (Auto) 0.6 K/mm3 (0.0-0.8) 01/14/22 10:51 Eos # (Auto) 0.4 K/mm3 (0.0-0.4) 01/14/22 10:51 Baso # (Auto) 0.0 K/mm3 (0.0-0.1) 01/14/22 10:51 Add Manual Diff Complete 01/11/22 13:02 Total Counted 100 01/11/22 13:02 Seg Neutrophils % 68.6 % (40.0-70.0) 01/14/22 10:51 Seg Neuts % (Manual) 76.0 % (40.0-70.0) H 01/11/22 13:02 Band Neutrophils % 1.0 % 01/11/22 13:02 Lymphocytes % (Manual) 7.0 % (13.4-35.0) L 01/11/22 13:02 Reactive Lymphs % (Man) 0 % 01/11/22 13:02 Monocytes % (Manual) 5.0 % (0.0-7.3) 01/11/22 13:02 Eosinophils % (Manual) 11.0 % (0.0-4.3) H 01/11/22 13:02 Basophils % (Manual) 0 % (0.0-1.8) 01/11/22 13:02 Metamyelocytes % 0 % 01/11/22 13:02 Myelocytes % 0 % 01/11/22 13:02 Promyelocytes % 0 % 01/11/22 13:02 Blast Cells % 0 % 01/11/22 13:02 Nucleated RBC % Not Reportable 01/11/22 13:02 Seg Neutrophils # 4.6 K/mm3 (1.8-7.7) 01/14/22 10:51 Seg Neutrophils # Man 5.1 K/mm3 (1.8-7.7) 01/11/22 13:02 Band Neutrophils # 0.1 K/mm3 01/11/22 13:02 Lymphocytes # (Manual) 0.5 K/mm3 (1.2-5.4) L 01/11/22 13:02 Abs React Lymphs (Man) 0.0 K/mm3 01/11/22 13:02 Monocytes # (Manual) 0.3 K/mm3 (0.0-0.8) 01/11/22 13:02 Eosinophils # (Manual) 0.7 K/mm3 (0.0-0.4) H 01/11/22 13:02 Basophils # (Manual) 0.0 K/mm3 (0.0-0.1) 01/11/22 13:02 Metamyelocytes # 0.0 K/mm3 01/11/22 13:02 Myelocytes # 0.0 K/mm3 01/11/22 13:02 Promyelocytes # 0.0 K/mm3 01/11/22 13:02 Blast Cells # 0.0 K/mm3 01/11/22 13:02 WBC Morphology Not Reportable 01/11/22 13:02 Hypersegmented Neuts Not Reportable 01/11/22 13:02 Hyposegmented Neuts Not Reportable 01/11/22 13:02 Hypogranular Neuts Not Reportable 01/11/22 13:02 Smudge Cells Not Reportable 01/11/22 13:02 Toxic Granulation Not Reportable 01/11/22 13:02 Toxic Vacuolation Not Reportable 01/11/22 13:02 Dohle Bodies Not Reportable 01/11/22 13:02 Pelger-Huet Anomaly Not Reportable 01/11/22 13:02 Heri Rods Not Reportable 01/11/22 13:02 Platelet Estimate Consistent w auto 01/11/22 13:02 Clumped Platelets Not Reportable 01/11/22 13:02 Plt Clumps, EDTA Not Reportable 01/11/22 13:02 Large Platelets Not Reportable 01/11/22 13:02 Giant Platelets Not Reportable 01/11/22 13:02 Platelet Satelliting Not Reportable 01/11/22 13:02 Plt Morphology Comment Not Reportable 01/11/22 13:02 RBC Morphology Not Reportable 01/11/22 13:02 Dimorphic RBCs Not Reportable 01/11/22 13:02 Polychromasia Not Reportable 01/11/22 13:02 Hypochromasia 2+ 01/11/22 13:02 Poikilocytosis Not Reportable 01/11/22 13:02 Anisocytosis Not Reportable 01/11/22 13:02 Microcytosis Not Reportable 01/11/22 13:02 Macrocytosis 1+ 01/11/22 13:02 Spherocytes Not Reportable 01/11/22 13:02 Pappenheimer Bodies Not Reportable 01/11/22 13:02 Sickle Cells Not Reportable 01/11/22 13:02 Target Cells Not Reportable 01/11/22 13:02 Tear Drop Cells Not Reportable 01/11/22 13:02 Ovalocytes Not Reportable 01/11/22 13:02 Helmet Cells Not Reportable 01/11/22 13:02 Phelps-Venus Bodies Not Reportable 01/11/22 13:02 [place] Rings Not Reportable 01/11/22 13:02 [place]anna Cells Not Reportable 01/11/22 13:02 Bite Cells Not Reportable 01/11/22 13:02 Crenated Cell Not Reportable 01/11/22 13:02 Elliptocytes Not Reportable 01/11/22 13:02 Acanthocytes (Spur) Not Reportable 01/11/22 13:02 Rouleaux Not Reportable 01/11/22 13:02 Hemoglobin C Crystals Not Reportable 01/11/22 13:02 Schistocytes Not Reportable 01/11/22 13:02 Malaria parasites Not Reportable 01/11/22 13:02 Jose Antonio Bodies Not Reportable 01/11/22 13:02 Hem Pathologist Commnt No 01/11/22 13:02 PT 15.8 Sec. (12.2-14.9) H 01/11/22 09:58 INR 1.13 (0.87-1.13) 01/11/22 09:58 Sodium 141 mmol/L (137-145) 01/16/22 04:07 Potassium 6.3 mmol/L (3.6-5.0) H* D 01/16/22 04:07 Chloride 111.3 mmol/L (98-107) H 01/16/22 04:07 Carbon Dioxide 17 mmol/L (22-30) L D 01/16/22 04:07 Anion Gap 19 mmol/L 01/16/22 04:07 BUN 49 mg/dL (9-20) H 01/16/22 04:07 Creatinine 6.1 mg/dL (0.8-1.3) H 01/16/22 04:07 Estimated GFR 11 ml/min 01/16/22 04:07 BUN/Creatinine Ratio 8 % 01/16/22 04:07 Glucose 75 mg/dL (75-100) 01/16/22 04:07 POC Glucose 54 mg/dL (70-105) L 01/16/22 05:33 Calcium 8.0 mg/dL (8.4-10.2) L 01/16/22 04:07 Phosphorus 6.80 mg/dL (2.5-4.5) H 01/16/22 04:07 Magnesium 1.90 mg/dL (1.7-2.3) 01/16/22 04:07 Total Bilirubin 0.20 mg/dL (0.1-1.2) 01/13/22 04:00 AST 14 units/L (5-40) 01/13/22 04:00 ALT 11 units/L (7-56) 01/13/22 04:00 Alkaline Phosphatase 43 units/L (35-129) 01/13/22 04:00 Total Protein 5.1 g/dL (6.3-8.2) L 01/13/22 04:00 Albumin 3.1 g/dL (3.9-5) L 01/13/22 04:00 Albumin/Globulin Ratio 1.6 % 01/13/22 04:00 Lipase 19 units/L (13-60) 01/11/22 09:58 Blood Type O POSITIVE 01/13/22 05:45 Antibody Screen Negative 01/13/22 05:45 Crossmatch See Detail 01/13/22 05:45 Breaux/IV: Voiding Method Incontinent Active Medications - Current Medications Current Medications: Generic Name Dose Route Start Last Admin Trade Name Miloq PRN Reason Stop Dose Admin Acetaminophen 650 mg 01/11/22 16:00 01/16/22 07:34 Acetaminophen 325 Mg Tab PO 650 mg Q4H PRN Administration Pain MILD(1-3)/Fever >100.5/ESQUIVEL Dextrose 50 ml 01/16/22 07:43 01/16/22 11:09 Dextrose 50% In Water (25gm) 50 Ml Syringe IV 50 ml Q30MIN PRN Administration Hypoglycemia Protocol Hydralazine HCl 10 mg 01/16/22 07:45 Hydralazine 20 Mg/1 Ml Inj IV Q4HR PRN Hypertension Sodium Chloride 100 mls @ 999 mls/hr 01/12/22 10:30 Nacl 0.9% IV JUANITO PRN Hypotension Sodium Chloride 500 mls @ 0 mls/hr 01/14/22 21:00 01/14/22 21:25 Nacl 0.9% 500 Ml IV 10 mls/hr DIRECT CA Administration Per Protocol Dextrose 1,000 mls @ 50 mls/hr 01/16/22 10:00 01/16/22 10:41 D10w IV 50 mls/hr DIRECT CA Administration Insulin Human Lispro 0 unit 01/16/22 06:00 01/16/22 11:26 Insulin Lispro 100 Unit/Ml SUB-Q Not Given Q6H CA Protocol Ondansetron HCl 4 mg 01/11/22 15:30 Ondansetron 4 Mg/2 Ml Inj IV Q8H PRN Nausea And Vomiting Pantoprazole Sodium 40 mg 01/11/22 22:00 01/16/22 10:39 Pantoprazole 40 Mg Inj IV 40 mg BID CA Administration Sodium Chloride 10 ml 01/11/22 22:00 01/16/22 10:40 Sodium Chloride 0.9% 10 Ml Flush Syringe IV 10 ml BID CA Administration Sodium Chloride 10 ml 01/11/22 16:00 Sodium Chloride 0.9% 10 Ml Flush Syringe IV PRN PRN LINE FLUSH Nutrition/Malnutrition Assess - Dietary Evaluation Nutrition/Malnutrition Findings: Nutrition Notes Start: 01/12/22 15:00 Freq: Status: Active Protocol: Document 01/12/22 15:00 YNES (Rec: 01/12/22 15:29 YNES [id number]) Nutrition Notes Need for Assessment generated from: social worker,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 Current Diet NPO (since 01/12 00:01). Labs/Tests 01/12: BUN 65, Crea 8.5. Pertinent Medications 01/12: Nutritionally unremarkable. 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 Weight Status Underweight Subjective/Other Information RD consult for skin risk, risk of malnutrition and Low BMI assessments. Pt currently on NPO due a procedure on 01/13. Pt is on Room Air, O2 saturation @ 98%, according to Vital Signs notes. Plan for EGD/Colonoscopy on am, according to Progress notes. Pt presents GI Bleed (Melena/ Hematochezia), according to Progress notes. Pt shows no signs of concern for skin risk at the time, according to Physical Assessment History notes. Pt shows an unspecified area of concern for risk of malnutrition at the time, according to Physical Assessment History notes. Pt's Low BMI seems to correspond to a natural body composition, and not related to a sudden loss of body weight nor chronic malnutrition, since no signs of concern were mentioned in the Physical Assessment History or the Progress notes. Percent of energy/protein needs met: Pt currently on NPO. When pertinent, start on prescribed Clear Liquids Diet, which, provides for energy/ protein needs (590 Kcal/16 g) during LOS. Burn Absent Trauma Absent GI Symptoms Other Food Allergy No Skin Integrity/Comment Unspecified area of concern. Current % PO Other Minimum of two criteria No Fluid Accumulation N/A Reduced Retail Marketing Specialist Strength N/A (non-severe) Protein-Calorie Malnutrition N\A #2 Nutrition Diagnosis Altered GI function Etiology Possibly associated with NSAID abuse. As Evidenced by Signs and Symptoms Pt presents GI Bleed (Melena/ Hematochezia), according to Progress notes. #1 Nutrition Diagnosis Underweight Comments: Pt's Low BMI seems to correspond to a natural body composition, and not related to a sudden loss of body weight nor chronic malnutrition, since no signs of concern were mentioned in the Physical Assessment History or the Progress notes. Etiology Uncertain. As Evidenced by Signs and Symptoms BMI: 18.2 Kg/m2. Is patient on ventilator? No Is Patient Ambulatory and/or Out of Bed No REE-([facility]-confined to bed) 1587.876 Kcal/Kg value to use for calculation 34 Approximate Energy Requirements Using 1851 kcal/Kg Calculation Used for Recommendations Kcal/kg Additional Notes Protein: >1.2 g/Kg ABW; >65 g/ day. Fluids: 1 ml/Kcal, or as per MD. Nutrition Intervention Change Diet Order: When pertinent, start Clear Liquids Diet as tolerated. Goal #1 Facilitate PO intake of meals with elemental, textural, or mechanical modification during LOS. Follow-Up By: 01/19/22 Additional Comments When pertinent, start monitoring food tolerance, %PO intake of meals, and BM. <ANI MERINO - Last Filed: 01/31/22 11:03> History Interval history: I saw and evaluated the patient. I agree with the findings and assessment/plan documented by the nurse practitioner. Hospitalist Physical - Constitutional Vitals: Temp Pulse Resp BP Pulse Ox 98.8 F 99 H 22 141/91 99 01/31/22 09:03 01/31/22 09:03 01/31/22 07:32 01/31/22 09:03 01/31/22 09:03 Results - Labs CBC & Chem 7: 01/30/22 05:57 01/31/22 04:48 Labs: Laboratory Last Values WBC 10.2 K/mm3 (4.5-11.0) 01/20/22 23:06 RBC 3.00 M/mm3 (3.65-5.03) L 01/20/22 23:06 Hgb 8.5 gm/dl (11.8-15.2) L 01/30/22 05:57 Hct 26.6 % (35.5-45.6) L 01/30/22 05:57 MCV 98 fl (84-94) H 01/20/22 23:06 MCH 30 pg (28-32) 01/20/22 23:06 MCHC 31 % (32-34) L 01/20/22 23:06 RDW 18.6 % (13.2-15.2) H 01/20/22 23:06 Plt Count 135 K/mm3 (140-440) L 01/20/22 23:06 Lymph % (Auto) 10.2 % (13.4-35.0) L 01/20/22 23:06 [place] % (Auto) 9.9 % (0.0-7.3) H 01/20/22 23:06 Eos % (Auto) 7.2 % (0.0-4.3) H 01/20/22 23:06 Baso % (Auto) 0.5 % (0.0-1.8) 01/20/22 23:06 Lymph # (Auto) 1.0 K/mm3 (1.2-5.4) L 01/20/22 23:06 [place] # (Auto) 1.0 K/mm3 (0.0-0.8) H 01/20/22 23:06 Eos # (Auto) 0.7 K/mm3 (0.0-0.4) H 01/20/22 23:06 Baso # (Auto) 0.0 K/mm3 (0.0-0.1) 01/20/22 23:06 Add Manual Diff Complete 01/11/22 13:02 Total Counted 100 01/11/22 13:02 Seg Neutrophils % 72.2 % (40.0-70.0) H 01/20/22 23:06 Seg Neuts % (Manual) 76.0 % (40.0-70.0) H 01/11/22 13:02 Band Neutrophils % 1.0 % 01/11/22 13:02 Lymphocytes % (Manual) 7.0 % (13.4-35.0) L 01/11/22 13:02 Reactive Lymphs % (Man) 0 % 01/11/22 13:02 Monocytes % (Manual) 5.0 % (0.0-7.3) 01/11/22 13:02 Eosinophils % (Manual) 11.0 % (0.0-4.3) H 01/11/22 13:02 Basophils % (Manual) 0 % (0.0-1.8) 01/11/22 13:02 Metamyelocytes % 0 % 01/11/22 13:02 Myelocytes % 0 % 01/11/22 13:02 Promyelocytes % 0 % 01/11/22 13:02 Blast Cells % 0 % 01/11/22 13:02 Nucleated RBC % Not Reportable 01/11/22 13:02 Seg Neutrophils # 7.3 K/mm3 (1.8-7.7) 01/20/22 23:06 Seg Neutrophils # Man 5.1 K/mm3 (1.8-7.7) 01/11/22 13:02 Band Neutrophils # 0.1 K/mm3 01/11/22 13:02 Lymphocytes # (Manual) 0.5 K/mm3 (1.2-5.4) L 01/11/22 13:02 Abs React Lymphs (Man) 0.0 K/mm3 01/11/22 13:02 Monocytes # (Manual) 0.3 K/mm3 (0.0-0.8) 01/11/22 13:02 Eosinophils # (Manual) 0.7 K/mm3 (0.0-0.4) H 01/11/22 13:02 Basophils # (Manual) 0.0 K/mm3 (0.0-0.1) 01/11/22 13:02 Metamyelocytes # 0.0 K/mm3 01/11/22 13:02 Myelocytes # 0.0 K/mm3 01/11/22 13:02 Promyelocytes # 0.0 K/mm3 01/11/22 13:02 Blast Cells # 0.0 K/mm3 01/11/22 13:02 WBC Morphology Not Reportable 01/11/22 13:02 Hypersegmented Neuts Not Reportable 01/11/22 13:02 Hyposegmented Neuts Not Reportable 01/11/22 13:02 Hypogranular Neuts Not Reportable 01/11/22 13:02 Smudge Cells Not Reportable 01/11/22 13:02 Toxic Granulation Not Reportable 01/11/22 13:02 Toxic Vacuolation Not Reportable 01/11/22 13:02 Dohle Bodies Not Reportable 01/11/22 13:02 Pelger-Huet Anomaly Not Reportable 01/11/22 13:02 Heri Rods Not Reportable 01/11/22 13:02 Platelet Estimate Consistent w auto 01/11/22 13:02 Clumped Platelets Not Reportable 01/11/22 13:02 Plt Clumps, EDTA Not Reportable 01/11/22 13:02 Large Platelets Not Reportable 01/11/22 13:02 Giant Platelets Not Reportable 01/11/22 13:02 Platelet Satelliting Not Reportable 01/11/22 13:02 Plt Morphology Comment Not Reportable 01/11/22 13:02 RBC Morphology Not Reportable 01/11/22 13:02 Dimorphic RBCs Not Reportable 01/11/22 13:02 Polychromasia Not Reportable 01/11/22 13:02 Hypochromasia 2+ 01/11/22 13:02 Poikilocytosis Not Reportable 01/11/22 13:02 Anisocytosis Not Reportable 01/11/22 13:02 Microcytosis Not Reportable 01/11/22 13:02 Macrocytosis 1+ 01/11/22 13:02 Spherocytes Not Reportable 01/11/22 13:02 Pappenheimer Bodies Not Reportable 01/11/22 13:02 Sickle Cells Not Reportable 01/11/22 13:02 Target Cells Not Reportable 01/11/22 13:02 Tear Drop Cells Not Reportable 01/11/22 13:02 Ovalocytes Not Reportable 01/11/22 13:02 Helmet Cells Not Reportable 01/11/22 13:02 Phelps-Venus Bodies Not Reportable 01/11/22 13:02 [place] Rings Not Reportable 01/11/22 13:02 [place] Cells Not Reportable 01/11/22 13:02 Bite Cells Not Reportable 01/11/22 13:02 Crenated Cell Not Reportable 01/11/22 13:02 Elliptocytes Not Reportable 01/11/22 13:02 Acanthocytes (Spur) Not Reportable 01/11/22 13:02 Rouleaux Not Reportable 01/11/22 13:02 Hemoglobin C Crystals Not Reportable 01/11/22 13:02 Schistocytes Not Reportable 01/11/22 13:02 Malaria parasites Not Reportable 01/11/22 13:02 Jose Antonio Bodies Not Reportable 01/11/22 13:02 Hem Pathologist Commnt No 01/11/22 13:02 PT 15.8 Sec. (12.2-14.9) H 01/11/22 09:58 INR 1.13 (0.87-1.13) 01/11/22 09:58 Sodium 135 mmol/L (137-145) L 01/31/22 04:48 Potassium 5.6 mmol/L (3.6-5.0) H 01/31/22 04:48 Chloride 94.4 mmol/L (98-107) L 01/31/22 04:48 Carbon Dioxide 35 mmol/L (22-30) H 01/31/22 04:48 Anion Gap 11 mmol/L 01/31/22 04:48 BUN 25 mg/dL (9-20) H 01/31/22 04:48 Creatinine 4.7 mg/dL (0.8-1.3) H 01/31/22 04:48 Estimated GFR 15 ml/min 01/31/22 04:48 BUN/Creatinine Ratio 5 % 01/31/22 04:48 Glucose 78 mg/dL (75-100) 01/31/22 04:48 POC Glucose 145 mg/dL (70-105) H 01/30/22 20:31 Calcium 8.6 mg/dL (8.4-10.2) 01/31/22 04:48 Phosphorus 4.90 mg/dL (2.5-4.5) H 01/30/22 05:57 Magnesium 1.90 mg/dL (1.7-2.3) 01/16/22 04:07 Total Bilirubin 0.30 mg/dL (0.1-1.2) 01/18/22 04:32 AST 15 units/L (5-40) 01/18/22 04:32 ALT 13 units/L (7-56) 01/18/22 04:32 Alkaline Phosphatase 53 units/L (35-129) 01/18/22 04:32 Total Protein 5.3 g/dL (6.3-8.2) L 01/18/22 04:32 Albumin 3.0 g/dL (3.9-5) L 01/18/22 04:32 Albumin/Globulin Ratio 1.3 % 01/18/22 04:32 Lipase 19 units/L (13-60) 01/11/22 09:58 SARS-CoV-2 (PCR) Negative (Negative) 01/19/22 14:45 Hepatitis A IgM Ab Non-reactive (NonReactive) 01/22/22 17:20 Hep Bs Antigen Non-reactive (Negative) 01/22/22 17:20 Hep B Core IgM Ab Non-reactive (NonReactive) 01/22/22 17:20 Hepatitis C Antibody Non-reactive (NonReactive) 01/22/22 17:20 Blood Type O POSITIVE 01/13/22 05:45 Antibody Screen Negative 01/13/22 05:45 Crossmatch See Detail 01/13/22 05:45 Breaux/IV: Voiding Method Condom Catheter Active Medications - Current Medications Current Medications: Generic Name Dose Route Start Last Admin Trade Name Freq PRN Reason Stop Dose Admin Acetaminophen 650 mg 01/11/22 16:00 01/31/22 07:32 Acetaminophen 325 Mg Tab PO 650 mg Q4H PRN Administration Pain MILD(1-3)/Fever >100.5/ESQUIVEL Al Hydrox/Mg Hydrox/Simethicone 15 ml 01/27/22 05:25 01/29/22 11:44 Alum-Mag Hydroxide-Simethicone [id number]/5ml Oral Liqd 30 Ml PO 15 ml Q4H PRN Administration Indigestion Dextrose 50 ml 01/16/22 07:43 01/17/22 18:04 Dextrose 50% In Water (25gm) 50 Ml Syringe IV 10 ml Q30MIN PRN Administration Hypoglycemia Protocol Docusate Sodium 100 mg 01/22/22 11:00 01/31/22 10:35 Docusate Sodium 100 Mg Cap PO Not Given BID CA Epoetin Sushil-epbx 20,000 unit 01/23/22 12:00 01/27/22 13:00 Epoetin Sushil-Epbx 10,000 Unit/1 Ml Vial SUB-Q 20,000 unit JUANITO PRN Administration hemodialysis Hydralazine HCl 10 mg 01/16/22 07:45 01/20/22 21:57 Hydralazine 20 Mg/1 Ml Inj IV 10 mg Q4HR PRN Administration Hypertension Sodium Chloride 100 mls @ 999 mls/hr 01/19/22 23:03 Nacl 0.9% IV JUANITO PRN Hypotension Insulin Human Lispro 0 unit 01/18/22 16:30 01/30/22 21:37 Insulin Lispro 100 Unit/Ml SUB-Q Not Given ACHS COUNT INCLUDES THE [facility] Protocol Ondansetron HCl 4 mg 01/11/22 15:30 01/22/22 12:34 Ondansetron 4 Mg/2 Ml Inj IV 4 mg Q8H PRN Administration Nausea And Vomiting Ondansetron HCl 8 mg 01/24/22 11:54 01/24/22 13:20 Ondansetron 8 Mg Odt Tab PO 8 mg Q8H PRN Administration Nausea And Vomiting Pantoprazole Sodium 40 mg 01/20/22 10:00 01/31/22 10:35 Pantoprazole 40 Mg Tab PO 40 mg BID CA Administration Sodium Chloride 10 ml 01/11/22 22:00 01/30/22 21:34 Sodium Chloride 0.9% 10 Ml Flush Syringe IV 10 ml BID CA Administration Sodium Chloride 10 ml 01/11/22 16:00 Sodium Chloride 0.9% 10 Ml Flush Syringe IV PRN PRN LINE FLUSH Nutrition/Malnutrition Assess - Dietary Evaluation Nutrition/Malnutrition Findings: Nutrition Notes Start: 01/12/22 15:00 Freq: Status: Active Protocol: Document 01/27/22 17:14 HAILEE (Rec: 01/27/22 17:18 [email or web address] [id number]) Nutrition Notes Initial or Follow up Reassessment Current Diagnosis CKD (stage V CKD),Diabetes, Hypertension Other Pertinent Diagnosis Lower GIB Current Diet GI soft Labs/Tests Reviewed Pertinent Medications Colace, Protonix Height 5 ft 8 in Weight 61.3 kg [place] Body Weight (kg) 70.00 BMI 20.5 Subjective/Other Information Pt eating lunch at time of visit. He says he eats when the food is good. No PO intakes documented since last assessment. He is awaiting placement. Burn Absent Trauma Absent #2 Nutrition Diagnosis Altered GI function As Evidenced by Signs and Symptoms pt tolerating PO intake Diagnosis Progress(for reassessment Resolved documentation) #1 Nutrition Diagnosis Underweight Diagnosis Progress(for reassessment Continues documentation) Is patient on ventilator? No Is Patient Ambulatory and/or Out of Bed No REE-([place] [facility]-confined to bed) 1670.220 Calculation Used for Recommendations [place] [facility] Additional Notes Pro needs >1.2g/kg: >74g/day Fluid needs 1-1.5L/day Nutrition Intervention Change Diet Order: Continue current diet order Goal #1 PO intakes to meet at least 75 % energy and pro needs Revisit per MD consult or patient Sign Off request:
--- NOTE | 2022-01-16 13:59 | Consultation ---
History of Present Illness Consult date: 01/16/22 - History of present illness History of present illness: General surgery consulted to see patient who was admitted 5 days ago with lower GI bleeding of unclear etiology. Patient had a colonoscopy that was unable to be optimally completed due to poor prep. Patient has had 2 CT angios that do not localize source of bleeding but there is IV contrast seen throughout the colon. Patient received 7 units of blood in the last 3 days. Patient tends to have painless spontaneous bleeding per rectum, and had 2 massive episodes this admission with last 1 requiring transfer to the intensive care unit. Patient denies any abdominal pain at some of her evaluation. Patient said that he wanted to eat. 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 denies: smoking, alcohol abuse, prescription drug abuse Family history: no significant family history Medications and Allergies Allergies Allergy/AdvReac Type Severity Reaction Status Date / Time No Known Allergies Allergy Verified 01/11/22 09:20 Home Medications Medication Instructions Recorded Confirmed Last Taken Type Tamsulosin [Flomax] 0.4 mg PO QDAY #30 cap 01/07/20 01/16/22 Unknown Rx Bacitracin Zinc Oint [Antibiotic 1 applicatio TP BID #1 tube 03/21/20 01/16/22 Unknown Rx Oint] Benzonatate [Tessalon Perles] 100 mg PO Q8HR PRN #20 capsule 03/21/20 01/16/22 Unknown Rx Acetaminophen [Tylenol] 325 mg PO Q6H PRN 01/16/22 01/16/22 Unknown History Amiodarone [Cordarone 200 MG TAB] 200 mg PO QDAY 01/16/22 01/16/22 Unknown History Aspirin [Vazalore] 81 mg PO QDAY 01/16/22 01/16/22 Unknown History Atorvastatin [Lipitor Tab] 80 mg PO QHS 01/16/22 01/16/22 Unknown History Calcium Acetate [Phoslo] 667 mg PO QDAY 01/16/22 01/16/22 Unknown History Ergocalciferol (Vitamin D2) 1,250 mcg PO QDAY 01/16/22 01/16/22 Unknown History [Drisdol] Glycerin/Propylene Glycol 30 ml OP QDAY PRN 01/16/22 01/16/22 Unknown History [Artificial Tears Drops] Insulin Lispro [Admelog] See Protocol SQ ACHS 01/16/22 01/16/22 Unknown History Lactobacillus Acidophilus 0.5 mg PO QDAY 01/16/22 01/16/22 Unknown History [Acidophilus Probiotic] Lactulose [Cephulac] 20 gm PO BID PRN 01/16/22 01/16/22 Unknown History Mag Hydrox/Aluminum Hyd/Simeth 10 ml PO QDAY 01/16/22 01/16/22 Unknown History [Mylanta Maximum Strength Pkt] Melatonin [Melatonin 5MG CAP] 5 mg PO QHS 01/16/22 01/16/22 Unknown History Omeprazole Magnesium [PriLOSEC Otc] 20 mg PO QDAY 01/16/22 01/16/22 Unknown History Sennosides Tab [Senokot] 8.6 mg PO BID PRN 01/16/22 01/16/22 Unknown History Torsemide [Demadex] 100 mg PO QDAY 01/16/22 01/16/22 Unknown History Vit B Comp No.3/Folic/C/Biotin 1 tab PO QDAY 01/16/22 01/16/22 Unknown History [Prisca-Theodore Rx Tablet] amLODIPine 10 mg PO QDAY 01/16/22 01/16/22 Unknown History carvediloL [Coreg] 6.25 mg PO BID 01/16/22 01/16/22 Unknown History megestroL [Megace] 40 mg PO QDAY 01/16/22 01/16/22 Unknown History polyethylene glycoL 3350 [Miralax 17 gm PO BID PRN 01/16/22 01/16/22 Unknown History 3350] Active Meds: Active Medications Acetaminophen (Acetaminophen 325 Mg Tab) 650 mg PO Q4H PRN PRN Reason: Pain MILD(1-3)/Fever >100.5/ESQUIVEL Last Admin: 01/16/22 07:34 Dose: 650 mg Dextrose (Dextrose 50% In Water (25gm) 50 Ml Syringe) 50 ml IV Q30MIN PRN; Protocol PRN Reason: Hypoglycemia Last Admin: 01/16/22 11:09 Dose: 50 ml Hydralazine HCl (Hydralazine 20 Mg/1 Ml Inj) 10 mg IV Q4HR PRN PRN Reason: Hypertension Sodium Chloride (Nacl 0.9%) 100 mls @ 999 mls/hr IV JUANITO PRN PRN Reason: Hypotension Sodium Chloride (Nacl 0.9% 500 Ml) 500 mls @ 0 mls/hr IV DIRECT CA Last Admin: 01/14/22 21:25 Dose: 10 mls/hr Dextrose (D10w) 1,000 mls @ 50 mls/hr IV DIRECT CA Last Admin: 01/16/22 10:41 Dose: 50 mls/hr Insulin Human Lispro (Insulin Lispro 100 Unit/Ml) 0 unit SUB-Q Q6H [facility]; Protocol Last Admin: 01/16/22 11:26 Dose: Not Given Ondansetron HCl (Ondansetron 4 Mg/2 Ml Inj) 4 mg IV Q8H PRN PRN Reason: Nausea And Vomiting Pantoprazole Sodium (Pantoprazole 40 Mg Inj) 40 mg IV BID [facility] Last Admin: 01/16/22 10:39 Dose: 40 mg Sodium Chloride (Sodium Chloride 0.9% 10 Ml Flush Syringe) 10 ml IV BID [facility] Last Admin: 01/16/22 10:40 Dose: 10 ml Sodium Chloride (Sodium Chloride 0.9% 10 Ml Flush Syringe) 10 ml IV PRN PRN PRN Reason: LINE FLUSH Review of Systems All systems: negative - Gastrointestinal hematochezia, no abdominal pain Exam Vital Signs Temp Pulse Resp BP Pulse Ox 98.4 F 90 14 124/80 96 01/11/22 09:17 01/11/22 09:17 01/11/22 09:17 01/11/22 09:17 01/11/22 09:17 - General physical appearance Positive: no distress, no pain, chronically ill - Eyes Positive: PERRL - Respiratory Positive: normal expansion, normal respiratory effort - Cardiovascular Heart Sounds: Present: S1 & S2 - Abdomen Abdomen: Present: soft. Absent: tender, rebound, guarding - Neurologic Neurologic: alert and oriented to time, place and person, motor strength and sensation are grossly intact - Psychiatric Psychiatric: appropriate mood/affect Results - Labs 01/17/22 04:08 01/17/22 04:08 Abnormal lab results 01/13/22 01/15/22 01/15/22 Range/Units 05:45 15:14 17:23 WBC 11.4 H (4.5-11.0) K/mm3 RBC 2.53 L (3.65-5.03) M/mm3 Hgb 7.8 L (11.8-15.2) gm/dl Hct 25.0 L (35.5-45.6) % MCV 99 H (84-94) fl MCHC 31 L (32-34) % RDW 20.3 H (13.2-15.2) % Plt Count 122 L D (140-440) K/mm3 Potassium (3.6-5.0) mmol/L Chloride (98-107) mmol/L Carbon Dioxide (22-30) mmol/L BUN (9-20) mg/dL Creatinine (0.8-1.3) mg/dL POC Glucose 66 L (70-105) mg/dL Calcium (8.4-10.2) mg/dL Phosphorus (2.5-4.5) mg/dL Crossmatch See Detail 01/15/22 01/16/22 01/16/22 Range/Units 21:59 00:51 01:29 WBC (4.5-11.0) K/mm3 RBC (3.65-5.03) M/mm3 Hgb 10.4 L (11.8-15.2) gm/dl Hct 32.1 L D (35.5-45.6) % MCV (84-94) fl MCHC (32-34) % RDW (13.2-15.2) % Plt Count (140-440) K/mm3 Potassium (3.6-5.0) mmol/L Chloride (98-107) mmol/L Carbon Dioxide (22-30) mmol/L BUN (9-20) mg/dL Creatinine (0.8-1.3) mg/dL POC Glucose 66 L 69 L (70-105) mg/dL Calcium (8.4-10.2) mg/dL Phosphorus (2.5-4.5) mg/dL Crossmatch 01/16/22 01/16/22 01/16/22 Range/Units 04:07 04:07 05:33 WBC 12.6 H (4.5-11.0) K/mm3 RBC 3.19 L (3.65-5.03) M/mm3 Hgb 9.9 L (11.8-15.2) gm/dl Hct 29.8 L (35.5-45.6) % MCV (84-94) fl MCHC (32-34) % RDW 18.9 H (13.2-15.2) % Plt Count 110 L (140-440) K/mm3 Potassium 6.3 H* D (3.6-5.0) mmol/L Chloride 111.3 H (98-107) mmol/L Carbon Dioxide 17 L D (22-30) mmol/L BUN 49 H (9-20) mg/dL Creatinine 6.1 H (0.8-1.3) mg/dL POC Glucose 54 L (70-105) mg/dL Calcium 8.0 L (8.4-10.2) mg/dL Phosphorus 6.80 H (2.5-4.5) mg/dL Crossmatch Diabetes panel 01/16/22 Range/Units 04:07 Sodium 141 (137-145) mmol/L Potassium 6.3 H* D (3.6-5.0) mmol/L Chloride 111.3 H (98-107) mmol/L Carbon Dioxide 17 L D (22-30) mmol/L BUN 49 H (9-20) mg/dL Creatinine 6.1 H (0.8-1.3) mg/dL Glucose 75 (75-100) mg/dL Calcium 8.0 L (8.4-10.2) mg/dL Calcium panel 01/16/22 Range/Units 04:07 Calcium 8.0 L (8.4-10.2) mg/dL Phosphorus 6.80 H (2.5-4.5) mg/dL Pituitary panel 01/16/22 Range/Units 04:07 Sodium 141 (137-145) mmol/L Potassium 6.3 H* D (3.6-5.0) mmol/L Chloride 111.3 H (98-107) mmol/L Carbon Dioxide 17 L D (22-30) mmol/L BUN 49 H (9-20) mg/dL Creatinine 6.1 H (0.8-1.3) mg/dL Glucose 75 (75-100) mg/dL Calcium 8.0 L (8.4-10.2) mg/dL Adrenal panel 01/16/22 Range/Units 04:07 Sodium 141 (137-145) mmol/L Potassium 6.3 H* D (3.6-5.0) mmol/L Chloride 111.3 H (98-107) mmol/L Carbon Dioxide 17 L D (22-30) mmol/L BUN 49 H (9-20) mg/dL Creatinine 6.1 H (0.8-1.3) mg/dL Glucose 75 (75-100) mg/dL Calcium 8.0 L (8.4-10.2) mg/dL - Imaging CT scan - abdomen: report reviewed, image reviewed CT scan - pelvis: report reviewed, image reviewed Assessment and Plan 61-year-old male with massive lower GI bleeding likely from diverticular disease in the colon but of unspecific location. Patient is afebrile and stable with no bloody bowel movement since yesterday. I spoke with Dr. Macias in interventional radiology who said that angiographic intervention not ideal for this patient who has aortic dissection and therefore friable aortic wall and not a candidate for intraluminal therapy. 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 I spoke with Dr. Matthew in gastroenterology who agreed that since the patient is stable will attempt to prep the patient again and repeat colonoscopy in an attempt to localize bleeding area. If negative and patient has a bleed may send for bleeding scan and attempt to localize bleeding to avoid subtotal colectomy which is both morbid and extremely high risk for this chronically ill patient. In the meantime continue supportive care and transfuse as necessary. We will follow-up results of colonoscopy. Surgery will be a last resort 7 all other methods of controlling bleeding are ineffective. Pathology and treatment options discussed with patient at length who expressed understanding. We will continue to follow closely.
[2022-01-16] MEDS ORDERED: POLYETHYLENE GLYCOL/ELECT SOLN 4000 ML PO ONE (14:37)
[2022-01-16 17:11] LABS: Hematocrit 30.4 % (35.5-45.6); Hemoglobin 10.1 gm/dl (11.8-15.2)
--- NOTE | 2022-01-16 18:10 | Gastroenterology Progress Note ---
Assessment and Plan GI bleed - suspect diverticular, recurrent episodes requiring 7 units of blood so far; discussed with surgery, will plan repeat colonoscopy tomorrow given poor prep recently to ensure no obvious other potential source in colon aside from d iverticular disease. golytely prep this evening, clears today and npo at midnight. Subjective Date of service: 01/16/22 Principal diagnosis: End-stage renal disease, gastrointestinal bleeding Interval history: no bleeding overnight or today so far Objective - Constitutional Vitals: Temp Pulse Resp BP Pulse Ox 98.0 F 78 24 162/78 93 01/16/22 16:28 01/16/22 18:00 01/16/22 18:00 01/16/22 18:00 01/16/22 18:00 General appearance: no acute distress - Respiratory Respiratory effort: normal Respiratory: bilateral: CTA - Cardiovascular Rhythm: regular - Gastrointestinal General gastrointestinal: Present: soft, non-tender - Labs CBC & Chem 7: 01/16/22 16:11 01/16/22 04:07 Labs: Laboratory Results - last 24 hr 01/13/22 01/15/22 01/15/22 05:45 15:41 17:23 WBC RBC Hgb Hct MCV MCH MCHC RDW Plt Count Sodium Potassium Chloride Carbon Dioxide Anion Gap BUN Creatinine Estimated GFR BUN/Creatinine Ratio Glucose POC Glucose 71 66 L Calcium Phosphorus Magnesium Crossmatch See Detail 01/15/22 01/15/22 01/15/22 17:25 21:08 21:59 WBC RBC Hgb 10.4 L Hct 32.1 L D MCV MCH MCHC RDW Plt Count Sodium Potassium Chloride Carbon Dioxide Anion Gap BUN Creatinine Estimated GFR BUN/Creatinine Ratio Glucose POC Glucose 85 78 Calcium Phosphorus Magnesium Crossmatch 01/16/22 01/16/22 01/16/22 00:51 01:29 02:09 WBC RBC Hgb Hct MCV MCH MCHC RDW Plt Count Sodium Potassium Chloride Carbon Dioxide Anion Gap BUN Creatinine Estimated GFR BUN/Creatinine Ratio Glucose POC Glucose 66 L 69 L 77 Calcium Phosphorus Magnesium Crossmatch 01/16/22 01/16/22 01/16/22 04:07 04:07 05:33 WBC 12.6 H RBC 3.19 L Hgb 9.9 L Hct 29.8 L MCV 93 MCH 31 MCHC 33 RDW 18.9 H Plt Count 110 L Sodium 141 Potassium 6.3 H* D Chloride 111.3 H Carbon Dioxide 17 L D Anion Gap 19 BUN 49 H Creatinine 6.1 H Estimated GFR 11 BUN/Creatinine Ratio 8 Glucose 75 POC Glucose 54 L Calcium 8.0 L Phosphorus 6.80 H Magnesium 1.90 Crossmatch 01/16/22 01/16/22 01/16/22 06:03 06:05 06:29 WBC RBC Hgb Hct MCV MCH MCHC RDW Plt Count Sodium Potassium Chloride Carbon Dioxide Anion Gap BUN Creatinine Estimated GFR BUN/Creatinine Ratio Glucose POC Glucose 57 L 61 L 68 L Calcium Phosphorus Magnesium Crossmatch 01/16/22 01/16/22 01/16/22 07:36 11:04 11:40 WBC RBC Hgb Hct MCV MCH MCHC RDW Plt Count Sodium Potassium Chloride Carbon Dioxide Anion Gap BUN Creatinine Estimated GFR BUN/Creatinine Ratio Glucose POC Glucose 76 64 L 124 H Calcium Phosphorus Magnesium Crossmatch 01/16/22 01/16/22 15:59 16:11 WBC RBC Hgb 10.1 L Hct 30.4 L MCV MCH MCHC RDW Plt Count Sodium Potassium Chloride Carbon Dioxide Anion Gap BUN Creatinine Estimated GFR BUN/Creatinine Ratio Glucose POC Glucose 82 Calcium Phosphorus Magnesium Crossmatch
[2022-01-17 04:54] LABS: Basophils # (Auto) 0.1 K/mm3 (0.0-0.1); Basophils % (Auto) 0.6 % (0.0-1.8); Hematocrit 27.7 % (35.5-45.6); Hemoglobin 9.2 gm/dl (11.8-15.2); Mean Corpuscular HGB Conc 33 % (32-34); Mean Corpuscular Volume 93 fl (84-94); Monocytes % (Auto) 8.2 % (0.0-7.3); Platelet Count 117 K/mm3 (140-440); Red Blood Count 2.97 M/mm3 (3.65-5.03)
[2022-01-17 05:11] LABS: Calcium 7.5 mg/dL (8.4-10.2)
[2022-01-17] MEDS: DEXTROSE 10% IN WATER 1,000 ML IV SCH ×2 (05:31→23:54)
[2022-01-17] MEDS: INSULIN LISPRO 100 UNIT/ML SUB-Q SCH ×3 (05:32→19:23)
[2022-01-17] MEDS ORDERED: EPINEPHrine 1 MG/10 ML SYRINGE ONE (08:38)
[2022-01-17] MEDS ORDERED: SODIUM CHLORIDE 0.9% 1000 ML 1,000 ML ONE (08:38)
[2022-01-17] MEDS ORDERED: WATER FOR IRRIG STERILE 250 ML BOTTLE IR ONE (08:38)
[2022-01-17] MEDS ORDERED: WATER FOR IRRIG STERILE 1,000 ML BOTTLE ONE (08:39)
[2022-01-17] MEDS: PANTOPRAZOLE 40 MG INJ IV SCH ×2 (09:08→21:26)
--- NOTE | 2022-01-17 10:39 | Progress Note ---
Assessment and Plan 61 y/o male with suspected lower GI bleed 01/17/22: Continue NPO state. Colon this afternoon. Called [facility] but no answer. Wanted to speak with them about the exact need of procedure. Given his distorted anatomy this is needed to help surgery figure out their exact approach. Will attempt to call them back later today. Guarded Prognosis to poor prognosis. 01/16/22: Spoke with IR who agreed to reach out with surgery. Now we have a plan in place. No transfer. HD now and then obtain tagged RBC scan once he is able to lie flat. 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 Continue liquid diet. Most likely will need total colectomy based on discussion with surgery. Guarded to poor prognosis. 1. Q6hour H/H's. 2. Transfuse for Hemoglobin <7 3. Per GI clear liquid diet 4. IMS speaking with vascular. Reviewed their note from earlier in the stay. Not sure if stat CTA is going to be helpful as vascular commented that he would not be a good candidate for intervention on their part and suggested transfer to tertiary care. Subjective Date of service: 01/17/22 Principal diagnosis: End-stage renal disease, gastrointestinal bleeding Interval history: Patient had HD on yesterday. Now able to lie flat. Nuc Medicine has cancelled the scan cause he has not had bleeding since Sunday. H/H is stable. Patient scheduled for colon later today. Objective - Constitutional Vitals: Vital Signs - 12hr 01/16/22 01/16/22 01/16/22 23:00 23:32 23:34 Temperature Pulse Rate 81 81 Pulse Rate [ 85 From Monitor] Respiratory 28 H 29 H 24 Rate Blood Pressure 162/89 158/78 O2 Sat by Pulse 100 92 100 Oximetry 01/17/22 01/17/22 01/17/22 00:00 01:00 02:00 Temperature 99.2 F Pulse Rate 86 82 73 Pulse Rate [ From Monitor] Respiratory 17 22 22 Rate Blood Pressure 160/86 171/86 147/78 O2 Sat by Pulse 94 90 100 Oximetry 01/17/22 01/17/22 01/17/22 03:00 03:20 03:25 Temperature Pulse Rate 76 78 Pulse Rate [ 73 From Monitor] Respiratory 21 21 Rate Blood Pressure 149/74 O2 Sat by Pulse 100 100 Oximetry 01/17/22 01/17/22 01/17/22 04:00 05:00 06:00 Temperature 98.7 F Pulse Rate 78 77 82 Pulse Rate [ From Monitor] Respiratory 21 22 31 H Rate Blood Pressure 148/75 157/74 149/81 O2 Sat by Pulse 100 100 Oximetry 01/17/22 01/17/22 01/17/22 07:00 07:22 07:54 Temperature 98.3 F Pulse Rate 82 81 Pulse Rate [ From Monitor] Respiratory 33 H Rate Blood Pressure 149/81 O2 Sat by Pulse 100 Oximetry 01/17/22 01/17/22 01/17/22 07:56 08:00 09:00 Temperature Pulse Rate 80 85 Pulse Rate [ 81 From Monitor] Respiratory 20 32 H 30 H Rate Blood Pressure 159/79 167/89 O2 Sat by Pulse 100 100 100 Oximetry 01/17/22 10:00 Temperature Pulse Rate 94 H Pulse Rate [ From Monitor] Respiratory 21 Rate Blood Pressure 159/80 O2 Sat by Pulse 98 Oximetry - Labs CBC & Chem 7: 01/17/22 04:08 01/17/22 04:08 Labs: Abnormal lab results 01/13/22 01/16/22 01/16/22 Range/Units 05:45 06:03 06:05 WBC (4.5-11.0) K/mm3 RBC (3.65-5.03) M/mm3 Hgb (11.8-15.2) gm/dl Hct (35.5-45.6) % RDW (13.2-15.2) % Plt Count (140-440) K/mm3 Lymph % (Auto) (13.4-35.0) % [place] % (Auto) (0.0-7.3) % Eos % (Auto) (0.0-4.3) % Lymph # (Auto) (1.2-5.4) K/mm3 [place] # (Auto) (0.0-0.8) K/mm3 Eos # (Auto) (0.0-0.4) K/mm3 Seg Neutrophils % (40.0-70.0) % Seg Neutrophils # (1.8-7.7) K/mm3 Chloride (98-107) mmol/L BUN (9-20) mg/dL Creatinine (0.8-1.3) mg/dL POC Glucose 57 L 61 L (70-105) mg/dL Calcium (8.4-10.2) mg/dL Crossmatch See Detail 01/16/22 01/16/22 01/16/22 Range/Units 06:29 11:04 11:40 WBC (4.5-11.0) K/mm3 RBC (3.65-5.03) M/mm3 Hgb (11.8-15.2) gm/dl Hct (35.5-45.6) % RDW (13.2-15.2) % Plt Count (140-440) K/mm3 Lymph % (Auto) (13.4-35.0) % [place] % (Auto) (0.0-7.3) % Eos % (Auto) (0.0-4.3) % Lymph # (Auto) (1.2-5.4) K/mm3 [place] # (Auto) (0.0-0.8) K/mm3 Eos # (Auto) (0.0-0.4) K/mm3 Seg Neutrophils % (40.0-70.0) % Seg Neutrophils # (1.8-7.7) K/mm3 Chloride (98-107) mmol/L BUN (9-20) mg/dL Creatinine (0.8-1.3) mg/dL POC Glucose 68 L 64 L 124 H (70-105) mg/dL Calcium (8.4-10.2) mg/dL Crossmatch 01/16/22 01/17/22 01/17/22 Range/Units 16:11 04:08 04:08 WBC 12.2 H (4.5-11.0) K/mm3 RBC 2.97 L (3.65-5.03) M/mm3 Hgb 10.1 L 9.2 L (11.8-15.2) gm/dl Hct 30.4 L 27.7 L (35.5-45.6) % RDW 19.0 H (13.2-15.2) % Plt Count 117 L (140-440) K/mm3 Lymph % (Auto) 8.0 L (13.4-35.0) % [place] % (Auto) 8.2 H (0.0-7.3) % Eos % (Auto) 8.0 H (0.0-4.3) % Lymph # (Auto) 1.0 L (1.2-5.4) K/mm3 [place] # (Auto) 1.0 H (0.0-0.8) K/mm3 Eos # (Auto) 1.0 H (0.0-0.4) K/mm3 Seg Neutrophils % 75.2 H (40.0-70.0) % Seg Neutrophils # 9.2 H (1.8-7.7) K/mm3 Chloride 109.1 H (98-107) mmol/L BUN 25 H (9-20) mg/dL Creatinine 5.0 H (0.8-1.3) mg/dL POC Glucose (70-105) mg/dL Calcium 7.5 L (8.4-10.2) mg/dL Crossmatch Medications & Allergies - Medications Allergies/Adverse Reactions: Allergies No Known Allergies Allergy (Verified 01/11/22 09:20) Home Medications: Home Medications Medication Instructions Recorded Confirmed Last Taken Type Tamsulosin [Flomax] 0.4 mg PO QDAY #30 cap 01/07/20 01/16/22 Unknown Rx Bacitracin Zinc Oint [Antibiotic 1 applicatio TP BID #1 tube 03/21/20 01/16/22 Unknown Rx Oint] Benzonatate [Tessalon Perles] 100 mg PO Q8HR PRN #20 capsule 03/21/20 01/16/22 Unknown Rx Acetaminophen [Tylenol] 325 mg PO Q6H PRN 01/16/22 01/16/22 Unknown History Amiodarone [Cordarone 200 MG TAB] 200 mg PO QDAY 01/16/22 01/16/22 Unknown History Aspirin [Vazalore] 81 mg PO QDAY 01/16/22 01/16/22 Unknown History Atorvastatin [Lipitor Tab] 80 mg PO QHS 01/16/22 01/16/22 Unknown History Calcium Acetate [Phoslo] 667 mg PO QDAY 01/16/22 01/16/22 Unknown History Ergocalciferol (Vitamin D2) 1,250 mcg PO QDAY 01/16/22 01/16/22 Unknown History [Drisdol] Glycerin/Propylene Glycol 30 ml OP QDAY PRN 01/16/22 01/16/22 Unknown History [Artificial Tears Drops] Insulin Lispro [Admelog] See Protocol SQ ACHS 01/16/22 01/16/22 Unknown History Lactobacillus Acidophilus 0.5 mg PO QDAY 01/16/22 01/16/22 Unknown History [Acidophilus Probiotic] Lactulose [Cephulac] 20 gm PO BID PRN 01/16/22 01/16/22 Unknown History Mag Hydrox/Aluminum Hyd/Simeth 10 ml PO QDAY 01/16/22 01/16/22 Unknown History [Mylanta Maximum Strength Pkt] Melatonin [Melatonin 5MG CAP] 5 mg PO QHS 01/16/22 01/16/22 Unknown History Omeprazole Magnesium [PriLOSEC Otc] 20 mg PO QDAY 01/16/22 01/16/22 Unknown History Sennosides Tab [Senokot] 8.6 mg PO BID PRN 01/16/22 01/16/22 Unknown History Torsemide [Demadex] 100 mg PO QDAY 01/16/22 01/16/22 Unknown History Vit B Comp No.3/Folic/C/Biotin 1 tab PO QDAY 01/16/22 01/16/22 Unknown History [Prisca-Theodore Rx Tablet] amLODIPine 10 mg PO QDAY 01/16/22 01/16/22 Unknown History carvediloL [Coreg] 6.25 mg PO BID 01/16/22 01/16/22 Unknown History megestroL [Megace] 40 mg PO QDAY 01/16/22 01/16/22 Unknown History polyethylene glycoL 3350 [Miralax 17 gm PO BID PRN 01/16/22 01/16/22 Unknown History 3350] Active Medications: Generic Name Dose Route Start Last Admin Trade Name Carlos PRN Reason Stop Dose Admin Acetaminophen 650 mg 01/11/22 16:00 01/16/22 07:34 Acetaminophen 325 Mg Tab PO 650 mg Q4H PRN Administration Pain MILD(1-3)/Fever >100.5/ESQUIVEL Dextrose 50 ml 01/16/22 07:43 01/16/22 11:09 Dextrose 50% In Water (25gm) 50 Ml Syringe IV 50 ml Q30MIN PRN Administration Hypoglycemia Protocol Hydralazine HCl 10 mg 01/16/22 07:45 Hydralazine 20 Mg/1 Ml Inj IV Q4HR PRN Hypertension Sodium Chloride 100 mls @ 999 mls/hr 01/12/22 10:30 Nacl 0.9% IV JUANITO PRN Hypotension Sodium Chloride 500 mls @ 0 mls/hr 01/14/22 21:00 01/14/22 21:25 Nacl 0.9% 500 Ml IV 10 mls/hr DIRECT CA Administration Per Protocol Dextrose 1,000 mls @ 50 mls/hr 01/16/22 10:00 01/17/22 05:31 D10w IV 50 mls/hr DIRECT CA Administration Insulin Human Lispro 0 unit 01/16/22 06:00 01/17/22 05:32 Insulin Lispro 100 Unit/Ml SUB-Q Not Given Q6H [facility] Protocol Ondansetron HCl 4 mg 01/11/22 15:30 Ondansetron 4 Mg/2 Ml Inj IV Q8H PRN Nausea And Vomiting Pantoprazole Sodium 40 mg 01/11/22 22:00 01/17/22 09:08 Pantoprazole 40 Mg Inj IV 40 mg BID CA Administration Sodium Chloride 10 ml 01/11/22 22:00 01/17/22 09:09 Sodium Chloride 0.9% 10 Ml Flush Syringe IV 10 ml BID CA Administration Sodium Chloride 10 ml 01/11/22 16:00 Sodium Chloride 0.9% 10 Ml Flush Syringe IV PRN PRN LINE FLUSH
--- NOTE | 2022-01-17 11:42 | Progress Note ---
Assessment and Plan - Patient Problems (1) Hyperkalemia Current Visit: No Status: Acute Plan to address problem: we will treat with hemodialysis . Please maintain patient on low potassium diet. Per nursing staff he is currently on clear liquids. serum potassium levels are stable at this time. (2) Lower GI bleed Current Visit: Yes Status: Acute Plan to address problem: no recurrent episodes overnight. Hemoglobin/hematocrit levels are stable. GI recommendations reviewed. Nuclear medicine bleeding scan has been counseled. We will continue to follow closely. plan for colonoscopy later today. (3) ESRD needing dialysis Current Visit: Yes Status: Chronic Plan to address problem: continue hemodialysis treatment on the inpatient Sunday/Sunday/Sunday HD schedule. (4) HTN (hypertension) Current Visit: Yes Status: Chronic Qualifiers: Hypertension type: primary hypertension Qualified Code(s): I10 - Essential (primary) hypertension Plan to address problem: overall blood pressures are remaining stable at this time and we will continue to monitor closely. Subjective Date of service: 01/17/22 Principal diagnosis: End-stage renal disease, gastrointestinal bleeding Interval history: no acute issues this morning. Pending colonoscopy later today. Tolerated hemodialysis well yesterday. Objective - Vital Signs Vital signs: Vital Signs - 12hr 01/17/22 01/17/22 01/17/22 00:00 01:00 02:00 Temperature 99.2 F Pulse Rate 86 82 73 Pulse Rate [ From Monitor] Respiratory 17 22 22 Rate Blood Pressure 160/86 171/86 147/78 O2 Sat by Pulse 94 90 100 Oximetry 01/17/22 01/17/22 01/17/22 03:00 03:20 03:25 Temperature Pulse Rate 76 78 Pulse Rate [ 73 From Monitor] Respiratory 21 21 Rate Blood Pressure 149/74 O2 Sat by Pulse 100 100 Oximetry 01/17/22 01/17/22 01/17/22 04:00 05:00 06:00 Temperature 98.7 F Pulse Rate 78 77 82 Pulse Rate [ From Monitor] Respiratory 21 22 31 H Rate Blood Pressure 148/75 157/74 149/81 O2 Sat by Pulse 100 100 Oximetry 01/17/22 01/17/22 01/17/22 07:00 07:22 07:54 Temperature 98.3 F Pulse Rate 82 81 Pulse Rate [ From Monitor] Respiratory 33 H Rate Blood Pressure 149/81 O2 Sat by Pulse 100 Oximetry 01/17/22 01/17/22 01/17/22 07:56 08:00 09:00 Temperature Pulse Rate 80 85 Pulse Rate [ 81 From Monitor] Respiratory 20 32 H 30 H Rate Blood Pressure 159/79 167/89 O2 Sat by Pulse 100 100 100 Oximetry 01/17/22 01/17/22 01/17/22 10:00 11:00 11:29 Temperature Pulse Rate 94 H 82 Pulse Rate [ 81 From Monitor] Respiratory 21 22 20 Rate Blood Pressure 159/80 160/80 O2 Sat by Pulse 98 93 100 Oximetry 01/17/22 11:30 Temperature Pulse Rate 76 Pulse Rate [ From Monitor] Respiratory Rate Blood Pressure O2 Sat by Pulse Oximetry - General Appearance General appearance: appears stated age, fatigue, frail EENT: ATNC Neck: no JVD Respiratory: Present: Clear to Ascultation Cardiology: regular Gastrointestinal: normal Integumentary: no rash Neurologic: no focal deficit Musculoskeletal: deferred Psychiatric: cooperative - Lab 01/17/22 04:08 01/17/22 04:08 Most recent lab results Calcium 7.5 mg/dL (8.4-10.2) L 01/17/22 04:08 Phosphorus 6.80 mg/dL (2.5-4.5) H 01/16/22 04:07 Magnesium 1.90 mg/dL (1.7-2.3) 01/16/22 04:07 - Allied health notes Allied health notes reviewed: nursing Medications & Allergies - Medications Allergies/Adverse Reactions: Allergies No Known Allergies Allergy (Verified 01/11/22 09:20) Home Medications: Home Medications Medication Instructions Recorded Confirmed Last Taken Type Tamsulosin [Flomax] 0.4 mg PO QDAY #30 cap 01/07/20 01/16/22 Unknown Rx Bacitracin Zinc Oint [Antibiotic 1 applicatio TP BID #1 tube 03/21/20 01/16/22 Unknown Rx Oint] Benzonatate [Tessalon Perles] 100 mg PO Q8HR PRN #20 capsule 03/21/20 01/16/22 Unknown Rx Acetaminophen [Tylenol] 325 mg PO Q6H PRN 01/16/22 01/16/22 Unknown History Amiodarone [Cordarone 200 MG TAB] 200 mg PO QDAY 01/16/22 01/16/22 Unknown History Aspirin [[place]] 81 mg PO QDAY 01/16/22 01/16/22 Unknown History Atorvastatin [Lipitor Tab] 80 mg PO QHS 01/16/22 01/16/22 Unknown History Calcium Acetate [Phoslo] 667 mg PO QDAY 01/16/22 01/16/22 Unknown History Ergocalciferol (Vitamin D2) 1,250 mcg PO QDAY 01/16/22 01/16/22 Unknown History [Drisdol] Glycerin/Propylene Glycol 30 ml OP QDAY PRN 01/16/22 01/16/22 Unknown History [Artificial Tears Drops] Insulin Lispro [Admelog] See Protocol SQ ACHS 01/16/22 01/16/22 Unknown History Lactobacillus Acidophilus 0.5 mg PO QDAY 01/16/22 01/16/22 Unknown History [Acidophilus Probiotic] Lactulose [Cephulac] 20 gm PO BID PRN 01/16/22 01/16/22 Unknown History Mag Hydrox/Aluminum Hyd/Simeth 10 ml PO QDAY 01/16/22 01/16/22 Unknown History [Mylanta Maximum Strength Pkt] Melatonin [Melatonin 5MG CAP] 5 mg PO QHS 01/16/22 01/16/22 Unknown History Omeprazole Magnesium [PriLOSEC Otc] 20 mg PO QDAY 01/16/22 01/16/22 Unknown History Sennosides Tab [Senokot] 8.6 mg PO BID PRN 01/16/22 01/16/22 Unknown History Torsemide [Demadex] 100 mg PO QDAY 01/16/22 01/16/22 Unknown History Vit B Comp No.3/Folic/C/Biotin 1 tab PO QDAY 01/16/22 01/16/22 Unknown History [Prisca-Theodore Rx Tablet] amLODIPine 10 mg PO QDAY 01/16/22 01/16/22 Unknown History carvediloL [Coreg] 6.25 mg PO BID 01/16/22 01/16/22 Unknown History megestroL [Megace] 40 mg PO QDAY 01/16/22 01/16/22 Unknown History polyethylene glycoL 3350 [Miralax 17 gm PO BID PRN 01/16/22 01/16/22 Unknown History 3350] Active Medications: Generic Name Dose Route Start Last Admin Trade Name Freq PRN Reason Stop Dose Admin Acetaminophen 650 mg 01/11/22 16:00 01/16/22 07:34 Acetaminophen 325 Mg Tab PO 650 mg Q4H PRN Administration Pain MILD(1-3)/Fever >100.5/ESQUIVEL Dextrose 50 ml 01/16/22 07:43 01/16/22 11:09 Dextrose 50% In Water (25gm) 50 Ml Syringe IV 50 ml Q30MIN PRN Administration Hypoglycemia Protocol Hydralazine HCl 10 mg 01/16/22 07:45 Hydralazine 20 Mg/1 Ml Inj IV Q4HR PRN Hypertension Sodium Chloride 100 mls @ 999 mls/hr 01/12/22 10:30 Nacl 0.9% IV JUANITO PRN Hypotension Sodium Chloride 500 mls @ 0 mls/hr 01/14/22 21:00 01/14/22 21:25 Nacl 0.9% 500 Ml IV 10 mls/hr DIRECT CA Administration Per Protocol Dextrose 1,000 mls @ 50 mls/hr 01/16/22 10:00 01/17/22 05:31 D10w IV 50 mls/hr DIRECT CA Administration Insulin Human Lispro 0 unit 01/16/22 06:00 01/17/22 05:32 Insulin Lispro 100 Unit/Ml SUB-Q Not Given Q6H AC Protocol Ondansetron HCl 4 mg 01/11/22 15:30 Ondansetron 4 Mg/2 Ml Inj IV Q8H PRN Nausea And Vomiting Pantoprazole Sodium 40 mg 01/11/22 22:00 01/17/22 09:08 Pantoprazole 40 Mg Inj IV 40 mg BID CA Administration Sodium Chloride 10 ml 01/11/22 22:00 01/17/22 09:09 Sodium Chloride 0.9% 10 Ml Flush Syringe IV 10 ml BID CA Administration Sodium Chloride 10 ml 01/11/22 16:00 Sodium Chloride 0.9% 10 Ml Flush Syringe IV PRN PRN LINE FLUSH
--- NOTE | 2022-01-17 12:15 | Progress Note ---
<CHRISTI JEFFRIES - Last Filed: 01/17/22 19:20> Assessment and Plan Assessment and plan: This is a 62-year-old male with ESRD on HD, HTN, CABG x2, s/p thoracic aortic stent, BPH and DM admitted with GI bleeding ICU course to date: 01/15: Patient was transferred to ICU for closer monitoring yesterday afternoon after second episode of GI bleeding was noted and he had a repeat CTA abdomen/pelvis. Patient's hemoglobin dropped to 5 yesterday and was given 2 units PRBC. GI recommends obtaining another CTA if recurrence of GI bleeding noted. 01/16: Patient will get HD today and possibly 25 DC tomorrow. Added hydralazine as needed for hypertension. Started D10 drip due to persistent hypoglycemia. 01/17: Patient remains stable, no s/s of any active bleeding overnight. H&H is stable. Plan for repeat Colonoscopy today by GI. 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 Collaterals presumably chronic, gallstones -S/p EGD and 01/12 which showed normal esophagus, mild erythematous mucosa in the antrum of of the body, biopsies obtained, normal duodenum, biopsies obtained and no source of GI bleeding found -S/p colonoscopy on 01/12 due to feeling poor quality however likely diverticular bleed -01/13 CTA abdomen/pelvis showed mild diverticular disease throughout the colon with endoluminal opacification of nearly all of the colon suggesting oral contrast however patient did have a history of oral contrast administration in addition To saturations would include carious excretion of contrast from the gallbladder however this appears out of proportion therefore hemorrhage should be considered, no clear source is identified, redemonstrated vascular disease without change -01/15 CTA abdomen/pelvis previous placement of thoracic aortic stent graft with aneurysm of the thoracic abdominal aorta extending into the iliacs bilaterally, 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 ACHS -Long-acting insulin, titrate as needed Heme: Acute on chronic anemia of chronic disease, GIB -Presented with GI bleed -Multiple episodes of GI bleed noted throughout stay -S/p 5 unit prbc -h/h q 8 hours -Trend CBC -Transfuse hemoglobin less than 7 -SCDs to BLE while in bed The high probability of a clinically significant, sudden or life threatening deterioration of the [GIB] system(s) required my full and direct attention, intervention and personal management. The aggregate critical care time was [60] minutes. This time is in addition to time spent performing reported procedures but includes the following: [x] Data Review and interpretation [x] Patient assessment and monitoring of vital signs [x] Documentation [x] Medication orders and management Disposition Plan: ICU Total Time Spent with Patient (Minutes): 60 Hospitalist Physical - Constitutional Vitals: Temp Pulse Resp BP Pulse Ox 98.0 F 102 H 19 162/93 90 01/17/22 11:50 01/17/22 12:00 01/17/22 12:00 01/17/22 12:00 01/17/22 12:00 General appearance: Present: no acute distress, other (appears older than stated age) Results - Labs CBC & Chem 7: 01/17/22 04:08 01/17/22 04:08 Labs: Laboratory Last Values WBC 12.2 K/mm3 (4.5-11.0) H 01/17/22 04:08 RBC 2.97 M/mm3 (3.65-5.03) L 01/17/22 04:08 Hgb 9.2 gm/dl (11.8-15.2) L 01/17/22 04:08 Hct 27.7 % (35.5-45.6) L 01/17/22 04:08 MCV 93 fl (84-94) 01/17/22 04:08 MCH 31 pg (28-32) 01/17/22 04:08 MCHC 33 % (32-34) 01/17/22 04:08 RDW 19.0 % (13.2-15.2) H 01/17/22 04:08 Plt Count 117 K/mm3 (140-440) L 01/17/22 04:08 Lymph % (Auto) 8.0 % (13.4-35.0) L 01/17/22 04:08 [place] % (Auto) 8.2 % (0.0-7.3) H 01/17/22 04:08 Eos % (Auto) 8.0 % (0.0-4.3) H 01/17/22 04:08 Baso % (Auto) 0.6 % (0.0-1.8) 01/17/22 04:08 Lymph # (Auto) 1.0 K/mm3 (1.2-5.4) L 01/17/22 04:08 [place] # (Auto) 1.0 K/mm3 (0.0-0.8) H 01/17/22 04:08 Eos # (Auto) 1.0 K/mm3 (0.0-0.4) H 01/17/22 04:08 Baso # (Auto) 0.1 K/mm3 (0.0-0.1) 01/17/22 04:08 Add Manual Diff Complete 01/11/22 13:02 Total Counted 100 01/11/22 13:02 Seg Neutrophils % 75.2 % (40.0-70.0) H 01/17/22 04:08 Seg Neuts % (Manual) 76.0 % (40.0-70.0) H 01/11/22 13:02 Band Neutrophils % 1.0 % 01/11/22 13:02 Lymphocytes % (Manual) 7.0 % (13.4-35.0) L 01/11/22 13:02 Reactive Lymphs % (Man) 0 % 01/11/22 13:02 Monocytes % (Manual) 5.0 % (0.0-7.3) 01/11/22 13:02 Eosinophils % (Manual) 11.0 % (0.0-4.3) H 01/11/22 13:02 Basophils % (Manual) 0 % (0.0-1.8) 01/11/22 13:02 Metamyelocytes % 0 % 01/11/22 13:02 Myelocytes % 0 % 01/11/22 13:02 Promyelocytes % 0 % 01/11/22 13:02 Blast Cells % 0 % 01/11/22 13:02 Nucleated RBC % Not Reportable 01/11/22 13:02 Seg Neutrophils # 9.2 K/mm3 (1.8-7.7) H 01/17/22 04:08 Seg Neutrophils # Man 5.1 K/mm3 (1.8-7.7) 01/11/22 13:02 Band Neutrophils # 0.1 K/mm3 01/11/22 13:02 Lymphocytes # (Manual) 0.5 K/mm3 (1.2-5.4) L 01/11/22 13:02 Abs React Lymphs (Man) 0.0 K/mm3 01/11/22 13:02 Monocytes # (Manual) 0.3 K/mm3 (0.0-0.8) 01/11/22 13:02 Eosinophils # (Manual) 0.7 K/mm3 (0.0-0.4) H 01/11/22 13:02 Basophils # (Manual) 0.0 K/mm3 (0.0-0.1) 01/11/22 13:02 Metamyelocytes # 0.0 K/mm3 01/11/22 13:02 Myelocytes # 0.0 K/mm3 01/11/22 13:02 Promyelocytes # 0.0 K/mm3 01/11/22 13:02 Blast Cells # 0.0 K/mm3 01/11/22 13:02 WBC Morphology Not Reportable 01/11/22 13:02 Hypersegmented Neuts Not Reportable 01/11/22 13:02 Hyposegmented Neuts Not Reportable 01/11/22 13:02 Hypogranular Neuts Not Reportable 01/11/22 13:02 Smudge Cells Not Reportable 01/11/22 13:02 Toxic Granulation Not Reportable 01/11/22 13:02 Toxic Vacuolation Not Reportable 01/11/22 13:02 Dohle Bodies Not Reportable 01/11/22 13:02 Pelger-Huet Anomaly Not Reportable 01/11/22 13:02 Heri Rods Not Reportable 01/11/22 13:02 Platelet Estimate Consistent w auto 01/11/22 13:02 Clumped Platelets Not Reportable 01/11/22 13:02 Plt Clumps, EDTA Not Reportable 01/11/22 13:02 Large Platelets Not Reportable 01/11/22 13:02 Giant Platelets Not Reportable 01/11/22 13:02 Platelet Satelliting Not Reportable 01/11/22 13:02 Plt Morphology Comment Not Reportable 01/11/22 13:02 RBC Morphology Not Reportable 01/11/22 13:02 Dimorphic RBCs Not Reportable 01/11/22 13:02 Polychromasia Not Reportable 01/11/22 13:02 Hypochromasia 2+ 01/11/22 13:02 Poikilocytosis Not Reportable 01/11/22 13:02 Anisocytosis Not Reportable 01/11/22 13:02 Microcytosis Not Reportable 01/11/22 13:02 Macrocytosis 1+ 01/11/22 13:02 Spherocytes Not Reportable 01/11/22 13:02 Pappenheimer Bodies Not Reportable 01/11/22 13:02 Sickle Cells Not Reportable 01/11/22 13:02 Target Cells Not Reportable 01/11/22 13:02 Tear Drop Cells Not Reportable 01/11/22 13:02 Ovalocytes Not Reportable 01/11/22 13:02 Helmet Cells Not Reportable 01/11/22 13:02 [place] Bodies Not Reportable 01/11/22 13:02 [place] Rings Not Reportable 01/11/22 13:02 [place] Cells Not Reportable 01/11/22 13:02 Bite Cells Not Reportable 01/11/22 13:02 Crenated Cell Not Reportable 01/11/22 13:02 Elliptocytes Not Reportable 01/11/22 13:02 Acanthocytes (Spur) Not Reportable 01/11/22 13:02 Rouleaux Not Reportable 01/11/22 13:02 Hemoglobin C Crystals Not Reportable 01/11/22 13:02 Schistocytes Not Reportable 01/11/22 13:02 Malaria parasites Not Reportable 01/11/22 13:02 [place] Bodies Not Reportable 01/11/22 13:02 Hem Pathologist Commnt No 01/11/22 13:02 PT 15.8 Sec. (12.2-14.9) H 01/11/22 09:58 INR 1.13 (0.87-1.13) 01/11/22 09:58 Sodium 145 mmol/L (137-145) 01/17/22 04:08 Potassium 4.3 mmol/L (3.6-5.0) D 01/17/22 04:08 Chloride 109.1 mmol/L (98-107) H 01/17/22 04:08 Carbon Dioxide 25 mmol/L (22-30) D 01/17/22 04:08 Anion Gap 15 mmol/L 01/17/22 04:08 BUN 25 mg/dL (9-20) H 01/17/22 04:08 Creatinine 5.0 mg/dL (0.8-1.3) H 01/17/22 04:08 Estimated GFR 14 ml/min 01/17/22 04:08 BUN/Creatinine Ratio 5 % 01/17/22 04:08 Glucose 79 mg/dL (75-100) 01/17/22 04:08 POC Glucose 71 mg/dL (70-105) 01/16/22 23:09 Calcium 7.5 mg/dL (8.4-10.2) L 01/17/22 04:08 Phosphorus 6.80 mg/dL (2.5-4.5) H 01/16/22 04:07 Magnesium 1.90 mg/dL (1.7-2.3) 01/16/22 04:07 Total Bilirubin 0.20 mg/dL (0.1-1.2) 01/13/22 04:00 AST 14 units/L (5-40) 01/13/22 04:00 ALT 11 units/L (7-56) 01/13/22 04:00 Alkaline Phosphatase 43 units/L (35-129) 01/13/22 04:00 Total Protein 5.1 g/dL (6.3-8.2) L 01/13/22 04:00 Albumin 3.1 g/dL (3.9-5) L 01/13/22 04:00 Albumin/Globulin Ratio 1.6 % 01/13/22 04:00 Lipase 19 units/L (13-60) 01/11/22 09:58 Blood Type O POSITIVE 01/13/22 05:45 Antibody Screen Negative 01/13/22 05:45 Crossmatch See Detail 01/13/22 05:45 Breaux/IV: Voiding Method Incontinent Active Medications - Current Medications Current Medications: Generic Name Dose Route Start Last Admin Trade Name Freq PRN Reason Stop Dose Admin Acetaminophen 650 mg 01/11/22 16:00 01/16/22 07:34 Acetaminophen 325 Mg Tab PO 650 mg Q4H PRN Administration Pain MILD(1-3)/Fever >100.5/ESQUIVEL Dextrose 50 ml 01/16/22 07:43 01/16/22 11:09 Dextrose 50% In Water (25gm) 50 Ml Syringe IV 50 ml Q30MIN PRN Administration Hypoglycemia Protocol Hydralazine HCl 10 mg 01/16/22 07:45 Hydralazine 20 Mg/1 Ml Inj IV Q4HR PRN Hypertension Sodium Chloride 100 mls @ 999 mls/hr 01/12/22 10:30 Nacl 0.9% IV JUANITO PRN Hypotension Sodium Chloride 500 mls @ 0 mls/hr 01/14/22 21:00 01/14/22 21:25 Nacl 0.9% 500 Ml IV 10 mls/hr DIRECT CA Administration Per Protocol Dextrose 1,000 mls @ 50 mls/hr 01/16/22 10:00 01/17/22 05:31 D10w IV 50 mls/hr DIRECT CA Administration Insulin Human Lispro 0 unit 01/16/22 06:00 01/17/22 05:32 Insulin Lispro 100 Unit/Ml SUB-Q Not Given Q6H CA Protocol Ondansetron HCl 4 mg 01/11/22 15:30 Ondansetron 4 Mg/2 Ml Inj IV Q8H PRN Nausea And Vomiting Pantoprazole Sodium 40 mg 01/11/22 22:00 01/17/22 09:08 Pantoprazole 40 Mg Inj IV 40 mg BID CA Administration Sodium Chloride 10 ml 01/11/22 22:00 01/17/22 09:09 Sodium Chloride 0.9% 10 Ml Flush Syringe IV 10 ml BID CA Administration Sodium Chloride 10 ml 01/11/22 16:00 Sodium Chloride 0.9% 10 Ml Flush Syringe IV PRN PRN LINE FLUSH Nutrition/Malnutrition Assess - Dietary Evaluation Nutrition/Malnutrition Findings: Nutrition Notes Start: 01/12/22 15:00 Freq: Status: Active Protocol: Document 01/12/22 15:00 YNES (Rec: 01/12/22 15:29 YNES [id number]) Nutrition Notes Need for Assessment generated from: project inspector,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 Current Diet NPO (since 01/12 00:01). Labs/Tests 01/12: BUN 65, Crea 8.5. Pertinent Medications 01/12: Nutritionally unremarkable. 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 Weight Status Underweight Subjective/Other Information RD consult for skin risk, risk of malnutrition and Low BMI assessments. Pt currently on NPO due a procedure on 01/13. Pt is on Room Air, O2 saturation @ 98%, according to Vital Signs notes. Plan for EGD/Colonoscopy on am, according to Progress notes. Pt presents GI Bleed (Melena/ Hematochezia), according to Progress notes. Pt shows no signs of concern for skin risk at the time, according to Physical Assessment History notes. Pt shows an unspecified area of concern for risk of malnutrition at the time, according to Physical Assessment History notes. Pt's Low BMI seems to correspond to a natural body composition, and not related to a sudden loss of body weight nor chronic malnutrition, since no signs of concern were mentioned in the Physical Assessment History or the Progress notes. Percent of energy/protein needs met: Pt currently on NPO. When pertinent, start on prescribed Clear Liquids Diet, which, provides for energy/ protein needs (590 Kcal/16 g) during LOS. Burn Absent Trauma Absent GI Symptoms Other Food Allergy No Skin Integrity/Comment Unspecified area of concern. Current % PO Other Minimum of two criteria No Fluid Accumulation N/A Reduced Trolley Cleaner Strength N/A (non-severe) Protein-Calorie Malnutrition N\A #2 Nutrition Diagnosis Altered GI function Etiology Possibly associated with NSAID abuse. As Evidenced by Signs and Symptoms Pt presents GI Bleed (Melena/ Hematochezia), according to Progress notes. #1 Nutrition Diagnosis Underweight Comments: Pt's Low BMI seems to correspond to a natural body composition, and not related to a sudden loss of body weight nor chronic malnutrition, since no signs of concern were mentioned in the Physical Assessment History or the Progress notes. Etiology Uncertain. As Evidenced by Signs and Symptoms BMI: 18.2 Kg/m2. Is patient on ventilator? No Is Patient Ambulatory and/or Out of Bed No REE-([place]-confined to bed) 1587.876 Kcal/Kg value to use for calculation 34 Approximate Energy Requirements Using 1851 kcal/Kg Calculation Used for Recommendations Kcal/kg Additional Notes Protein: >1.2 g/Kg ABW; >65 g/ day. Fluids: 1 ml/Kcal, or as per MD. Nutrition Intervention Change Diet Order: When pertinent, start Clear Liquids Diet as tolerated. Goal #1 Facilitate PO intake of meals with elemental, textural, or mechanical modification during LOS. Follow-Up By: 01/19/22 Additional Comments When pertinent, start monitoring food tolerance, %PO intake of meals, and BM. <YOEL MAIRSCAL - Last Filed: 01/18/22 07:28> Assessment and Plan Assessment and plan: The patient was seen and examined with the TIMBER FRAMER/PA.Vitals, labs, medications, chart and imaging were reviewed.Agree with TIMBER FRAMER's assessment and plan as documented.Discussed care plan and directed management Hospitalist Physical - Constitutional Vitals: Temp Pulse Resp BP Pulse Ox 98.9 F 76 21 160/84 100 01/18/22 04:00 01/18/22 07:00 01/18/22 07:00 01/18/22 07:00 01/18/22 07:00 Results - Labs CBC & Chem 7: 01/18/22 04:32 01/18/22 04:32 Labs: Laboratory Last Values WBC 10.0 K/mm3 (4.5-11.0) 01/18/22 04:32 RBC 2.87 M/mm3 (3.65-5.03) L 01/18/22 04:32 Hgb 8.9 gm/dl (11.8-15.2) L 01/18/22 04:32 Hct 26.9 % (35.5-45.6) L 01/18/22 04:32 MCV 94 fl (84-94) 01/18/22 04:32 MCH 31 pg (28-32) 01/18/22 04:32 MCHC 33 % (32-34) 01/18/22 04:32 RDW 18.6 % (13.2-15.2) H 01/18/22 04:32 Plt Count 133 K/mm3 (140-440) L 01/18/22 04:32 Lymph % (Auto) 8.0 % (13.4-35.0) L 01/17/22 04:08 [place] % (Auto) 8.2 % (0.0-7.3) H 01/17/22 04:08 Eos % (Auto) 8.0 % (0.0-4.3) H 01/17/22 04:08 Baso % (Auto) 0.6 % (0.0-1.8) 01/17/22 04:08 Lymph # (Auto) 1.0 K/mm3 (1.2-5.4) L 01/17/22 04:08 [place] # (Auto) 1.0 K/mm3 (0.0-0.8) H 01/17/22 04:08 Eos # (Auto) 1.0 K/mm3 (0.0-0.4) H 01/17/22 04:08 Baso # (Auto) 0.1 K/mm3 (0.0-0.1) 01/17/22 04:08 Add Manual Diff Complete 01/11/22 13:02 Total Counted 100 01/11/22 13:02 Seg Neutrophils % 75.2 % (40.0-70.0) H 01/17/22 04:08 Seg Neuts % (Manual) 76.0 % (40.0-70.0) H 01/11/22 13:02 Band Neutrophils % 1.0 % 01/11/22 13:02 Lymphocytes % (Manual) 7.0 % (13.4-35.0) L 01/11/22 13:02 Reactive Lymphs % (Man) 0 % 01/11/22 13:02 Monocytes % (Manual) 5.0 % (0.0-7.3) 01/11/22 13:02 Eosinophils % (Manual) 11.0 % (0.0-4.3) H 01/11/22 13:02 Basophils % (Manual) 0 % (0.0-1.8) 01/11/22 13:02 Metamyelocytes % 0 % 01/11/22 13:02 Myelocytes % 0 % 01/11/22 13:02 Promyelocytes % 0 % 01/11/22 13:02 Blast Cells % 0 % 01/11/22 13:02 Nucleated RBC % Not Reportable 01/11/22 13:02 Seg Neutrophils # 9.2 K/mm3 (1.8-7.7) H 01/17/22 04:08 Seg Neutrophils # Man 5.1 K/mm3 (1.8-7.7) 01/11/22 13:02 Band Neutrophils # 0.1 K/mm3 01/11/22 13:02 Lymphocytes # (Manual) 0.5 K/mm3 (1.2-5.4) L 01/11/22 13:02 Abs React Lymphs (Man) 0.0 K/mm3 01/11/22 13:02 Monocytes # (Manual) 0.3 K/mm3 (0.0-0.8) 01/11/22 13:02 Eosinophils # (Manual) 0.7 K/mm3 (0.0-0.4) H 01/11/22 13:02 Basophils # (Manual) 0.0 K/mm3 (0.0-0.1) 01/11/22 13:02 Metamyelocytes # 0.0 K/mm3 01/11/22 13:02 Myelocytes # 0.0 K/mm3 01/11/22 13:02 Promyelocytes # 0.0 K/mm3 01/11/22 13:02 Blast Cells # 0.0 K/mm3 01/11/22 13:02 WBC Morphology Not Reportable 01/11/22 13:02 Hypersegmented Neuts Not Reportable 01/11/22 13:02 Hyposegmented Neuts Not Reportable 01/11/22 13:02 Hypogranular Neuts Not Reportable 01/11/22 13:02 Smudge Cells Not Reportable 01/11/22 13:02 Toxic Granulation Not Reportable 01/11/22 13:02 Toxic Vacuolation Not Reportable 01/11/22 13:02 Dohle Bodies Not Reportable 01/11/22 13:02 Pelger-Huet Anomaly Not Reportable 01/11/22 13:02 Heri Rods Not Reportable 01/11/22 13:02 Platelet Estimate Consistent w auto 01/11/22 13:02 Clumped Platelets Not Reportable 01/11/22 13:02 Plt Clumps, EDTA Not Reportable 01/11/22 13:02 Large Platelets Not Reportable 01/11/22 13:02 Giant Platelets Not Reportable 01/11/22 13:02 Platelet Satelliting Not Reportable 01/11/22 13:02 Plt Morphology Comment Not Reportable 01/11/22 13:02 RBC Morphology Not Reportable 01/11/22 13:02 Dimorphic RBCs Not Reportable 01/11/22 13:02 Polychromasia Not Reportable 01/11/22 13:02 Hypochromasia 2+ 01/11/22 13:02 Poikilocytosis Not Reportable 01/11/22 13:02 Anisocytosis Not Reportable 01/11/22 13:02 Microcytosis Not Reportable 01/11/22 13:02 Macrocytosis 1+ 01/11/22 13:02 Spherocytes Not Reportable 01/11/22 13:02 Pappenheimer Bodies Not Reportable 01/11/22 13:02 Sickle Cells Not Reportable 01/11/22 13:02 Target Cells Not Reportable 01/11/22 13:02 Tear Drop Cells Not Reportable 01/11/22 13:02 Ovalocytes Not Reportable 01/11/22 13:02 Helmet Cells Not Reportable 01/11/22 13:02 [place] Bodies Not Reportable 01/11/22 13:02 [place] Rings Not Reportable 01/11/22 13:02 [place] Cells Not Reportable 01/11/22 13:02 Bite Cells Not Reportable 01/11/22 13:02 Crenated Cell Not Reportable 01/11/22 13:02 Elliptocytes Not Reportable 01/11/22 13:02 Acanthocytes (Spur) Not Reportable 01/11/22 13:02 Rouleaux Not Reportable 01/11/22 13:02 Hemoglobin C Crystals Not Reportable 01/11/22 13:02 Schistocytes Not Reportable 01/11/22 13:02 Malaria parasites Not Reportable 01/11/22 13:02 [place] Bodies Not Reportable 01/11/22 13:02 Hem Pathologist Commnt No 01/11/22 13:02 PT 15.8 Sec. (12.2-14.9) H 01/11/22 09:58 INR 1.13 (0.87-1.13) 01/11/22 09:58 Sodium 141 mmol/L (137-145) 01/18/22 04:32 Potassium 4.5 mmol/L (3.6-5.0) 01/18/22 04:32 Chloride 105.8 mmol/L (98-107) 01/18/22 04:32 Carbon Dioxide 24 mmol/L (22-30) 01/18/22 04:32 Anion Gap 16 mmol/L 01/18/22 04:32 BUN 29 mg/dL (9-20) H 01/18/22 04:32 Creatinine 5.9 mg/dL (0.8-1.3) H 01/18/22 04:32 Estimated GFR 12 ml/min 01/18/22 04:32 BUN/Creatinine Ratio 5 % 01/18/22 04:32 Glucose 81 mg/dL (75-100) 01/18/22 04:32 POC Glucose 107 mg/dL (70-105) H 01/18/22 06:24 Calcium 7.9 mg/dL (8.4-10.2) L 01/18/22 04:32 Phosphorus 6.80 mg/dL (2.5-4.5) H 01/16/22 04:07 Magnesium 1.90 mg/dL (1.7-2.3) 01/16/22 04:07 Total Bilirubin 0.30 mg/dL (0.1-1.2) 01/18/22 04:32 AST 15 units/L (5-40) 01/18/22 04:32 ALT 13 units/L (7-56) 01/18/22 04:32 Alkaline Phosphatase 53 units/L (35-129) 01/18/22 04:32 Total Protein 5.3 g/dL (6.3-8.2) L 01/18/22 04:32 Albumin 3.0 g/dL (3.9-5) L 01/18/22 04:32 Albumin/Globulin Ratio 1.3 % 01/18/22 04:32 Lipase 19 units/L (13-60) 01/11/22 09:58 Blood Type O POSITIVE 01/13/22 05:45 Antibody Screen Negative 01/13/22 05:45 Crossmatch See Detail 01/13/22 05:45 Breaux/IV: Voiding Method Incontinent Active Medications - Current Medications Current Medications: Generic Name Dose Route Start Last Admin Trade Name Freq PRN Reason Stop Dose Admin Acetaminophen 650 mg 01/11/22 16:00 01/18/22 03:05 Acetaminophen 325 Mg Tab PO 650 mg Q4H PRN Administration Pain MILD(1-3)/Fever >100.5/ESQUIVEL Dextrose 50 ml 01/16/22 07:43 01/17/22 18:04 Dextrose 50% In Water (25gm) 50 Ml Syringe IV 10 ml Q30MIN PRN Administration Hypoglycemia Protocol Hydralazine HCl 10 mg 01/16/22 07:45 Hydralazine 20 Mg/1 Ml Inj IV Q4HR PRN Hypertension Sodium Chloride 100 mls @ 999 mls/hr 01/12/22 10:30 Nacl 0.9% IV JUANITO PRN Hypotension Sodium Chloride 500 mls @ 0 mls/hr 01/14/22 21:00 01/14/22 21:25 Nacl 0.9% 500 Ml IV 10 mls/hr DIRECT CA Administration Per Protocol Dextrose 1,000 mls @ 50 mls/hr 01/16/22 10:00 01/17/22 23:54 D10w IV 50 mls/hr DIRECT CA Administration Insulin Human Lispro 0 unit 01/16/22 06:00 01/18/22 06:58 Insulin Lispro 100 Unit/Ml SUB-Q Not Given Q6H CA Protocol Ondansetron HCl 4 mg 01/11/22 15:30 Ondansetron 4 Mg/2 Ml Inj IV Q8H PRN Nausea And Vomiting Pantoprazole Sodium 40 mg 01/11/22 22:00 01/17/22 21:26 Pantoprazole 40 Mg Inj IV 40 mg BID CA Administration Sodium Chloride 10 ml 01/11/22 22:00 01/17/22 21:26 Sodium Chloride 0.9% 10 Ml Flush Syringe IV 10 ml BID CA Administration Sodium Chloride 10 ml 01/11/22 16:00 Sodium Chloride 0.9% 10 Ml Flush Syringe IV PRN PRN LINE FLUSH Nutrition/Malnutrition Assess - Dietary Evaluation Nutrition/Malnutrition Findings: Nutrition Notes Start: 01/12/22 15:00 Freq: Status: Active Protocol: Document 01/12/22 15:00 YNES (Rec: 01/12/22 15:29 YNES [id number]) Nutrition Notes Need for Assessment generated from: project inspector,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 Current Diet NPO (since 01/12 00:01). Labs/Tests 01/12: BUN 65, Crea 8.5. Pertinent Medications 01/12: Nutritionally unremarkable. 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 Weight Status Underweight Subjective/Other Information RD consult for skin risk, risk of malnutrition and Low BMI assessments. Pt currently on NPO due a procedure on 01/13. Pt is on Room Air, O2 saturation @ 98%, according to Vital Signs notes. Plan for EGD/Colonoscopy on am, according to Progress notes. Pt presents GI Bleed (Melena/ Hematochezia), according to Progress notes. Pt shows no signs of concern for skin risk at the time, according to Physical Assessment History notes. Pt shows an unspecified area of concern for risk of malnutrition at the time, according to Physical Assessment History notes. Pt's Low BMI seems to correspond to a natural body composition, and not related to a sudden loss of body weight nor chronic malnutrition, since no signs of concern were mentioned in the Physical Assessment History or the Progress notes. Percent of energy/protein needs met: Pt currently on NPO. When pertinent, start on prescribed Clear Liquids Diet, which, provides for energy/ protein needs (590 Kcal/16 g) during LOS. Burn Absent Trauma Absent GI Symptoms Other Food Allergy No Skin Integrity/Comment Unspecified area of concern. Current % PO Other Minimum of two criteria No Fluid Accumulation N/A Reduced Trolley Cleaner Strength N/A (non-severe) Protein-Calorie Malnutrition N\A #2 Nutrition Diagnosis Altered GI function Etiology Possibly associated with NSAID abuse. As Evidenced by Signs and Symptoms Pt presents GI Bleed (Melena/ Hematochezia), according to Progress notes. #1 Nutrition Diagnosis Underweight Comments: Pt's Low BMI seems to correspond to a natural body composition, and not related to a sudden loss of body weight nor chronic malnutrition, since no signs of concern were mentioned in the Physical Assessment History or the Progress notes. Etiology Uncertain. As Evidenced by Signs and Symptoms BMI: 18.2 Kg/m2. Is patient on ventilator? No Is Patient Ambulatory and/or Out of Bed No REE-([facility]-confined to bed) 1587.876 Kcal/Kg value to use for calculation 34 Approximate Energy Requirements Using 1851 kcal/Kg Calculation Used for Recommendations Kcal/kg Additional Notes Protein: >1.2 g/Kg ABW; >65 g/ day. Fluids: 1 ml/Kcal, or as per MD. Nutrition Intervention Change Diet Order: When pertinent, start Clear Liquids Diet as tolerated. Goal #1 Facilitate PO intake of meals with elemental, textural, or mechanical modification during LOS. Follow-Up By: 01/19/22 Additional Comments When pertinent, start monitoring food tolerance, %PO intake of meals, and BM.
--- NOTE | 2022-01-17 12:52 | Anesthesia Day of Surgery ---
Anesthesia Day of Surgery - Day of Surgery Patient Examined: Yes Patient H&P Reviewed: Yes Patient is NPO: Yes Beta Blockers: No Cardiac Clearance: No Pulmonary Clearance: No
[2022-01-17] MEDS ORDERED: propofoL 200 MG/20 ML VIAL IV ONE (12:54)
[2022-01-17] MEDS ORDERED: KETAMINE/STERILE WATER 50 MG/ML SYRINGE ONE (12:54)
--- NOTE | 2022-01-17 13:48 | Post Operative Note ---
Date of procedure: 01/17/22 Pre-op diagnosis: GI bleed Post-op diagnosis: other (moore-diverticulosis) Findings: Diverticulosis throughout the colon Procedure: Colonoscopy Anesthesia: MAC Surgeon: KRISTINE MERINO Estimated blood loss: none Condition: stable Disposition: no change
--- NOTE | 2022-01-17 14:22 | Operative Report ---
Operative Report Operative Report: Colonoscopy Procedure Note Date of procedure: 01/17/2022 Endoscopist: Stephen Matthew Pre-op diagnosis/indication: GI bleed Post-op diagnosis: Carrera-diveticulosis MEDICATIONS: MAC COMPLICATIONS: No immediate complications ESTIMATED BLOOD LOSS: None DESCRIPTION OF PROCEDURE: After consent was obtained, the patient was placed in the left lateral decubitis position. The olympus colonoscope was inserted into the rectum and advanced to the cecum without difficulty. The patient tolerated the procedure well. The views of the mucosa were adequate. The quality of prep was fair/adequate for diagnostic purposes. The patients vital signs were monitored continuously throughout the procedure. FINDINGS: There was numerous medium and large mouthed diverticula throughout the entire colon. No blood was seen during the procedure and no obvious other source seen in the colon for GI bleeding aside from diverticulosis. IMPRESSION: 1. Diverticulosis throughout the entire colon. No blood was seen. RECOMMENDATIONS: -monitor, if re-bleeds, then will need either IR vs surgery at this juncture for suspected recurrent diverticular bleeding. will sign off, please call as needed.
--- NOTE | 2022-01-17 17:22 | Progress Note ---
Assessment and Plan 61-year-old male with massive lower GI bleeding likely from diverticular disease in the colon but of unspecific location. Patient is afebrile and stable with no bloody bowel movement since yesterday. I spoke with Dr. Macias in interventional radiology who said that angiographic intervention not ideal for this patient who has aortic dissection and therefore friable aortic wall and not a candidate for intraluminal therapy. 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 Patient on clear liquids can advance as tolerated. Discussed with patient at length if he were to rebleed he will require subtotal colectomy with ileostomy. Patient expressed understanding. Continue supportive care as indicated. Subjective Date of service: 01/17/22 Narrative: No acute events no GI bleeding in the last 48 hours. Patient had a colonoscopy today that showed numerous diverticuli but no obvious source of bleeding. Patient says that he feels well and wants to eat. Objective Vital Signs - 12hr 01/17/22 01/17/22 01/17/22 06:00 07:00 07:22 Temperature 98.3 F Pulse Rate 82 82 Pulse Rate [ From Monitor] Respiratory 31 H 33 H Rate Blood Pressure 149/81 149/81 O2 Sat by Pulse 100 Oximetry 01/17/22 01/17/22 01/17/22 07:54 07:56 08:00 Temperature Pulse Rate 81 80 Pulse Rate [ 81 From Monitor] Respiratory 20 32 H Rate Blood Pressure 159/79 O2 Sat by Pulse 100 100 Oximetry 01/17/22 01/17/22 01/17/22 09:00 10:00 11:00 Temperature Pulse Rate 85 94 H 82 Pulse Rate [ From Monitor] Respiratory 30 H 21 22 Rate Blood Pressure 167/89 159/80 160/80 O2 Sat by Pulse 100 98 93 Oximetry 01/17/22 01/17/22 01/17/22 11:29 11:30 11:50 Temperature 98.0 F Pulse Rate 76 Pulse Rate [ 81 From Monitor] Respiratory 20 Rate Blood Pressure O2 Sat by Pulse 100 Oximetry 01/17/22 01/17/22 01/17/22 12:00 12:50 13:00 Temperature 98.8 F Pulse Rate 102 H 82 87 Pulse Rate [ From Monitor] Respiratory 19 26 H 25 H Rate Blood Pressure 161/105 162/93 162/93 O2 Sat by Pulse 90 100 100 Oximetry 01/17/22 01/17/22 01/17/22 13:50 14:00 15:00 Temperature 97.8 F Pulse Rate 98 H 79 78 Pulse Rate [ From Monitor] Respiratory 22 9 L 20 Rate Blood Pressure 110/67 125/72 144/74 O2 Sat by Pulse 100 100 100 Oximetry 01/17/22 01/17/22 16:00 16:40 Temperature 97.9 F Pulse Rate 94 H Pulse Rate [ 80 From Monitor] Respiratory 20 Rate Blood Pressure 161/86 O2 Sat by Pulse 95 Oximetry - General physical appearance well developed, no distress, chronically ill - Eyes PERRL - ENT no hearing loss - Respiratory normal expansion, normal respiratory effort - Abdomen soft, not tender - Labs 01/17/22 04:08 01/17/22 04:08 Diabetes panel 01/17/22 Range/Units 04:08 Sodium 145 (137-145) mmol/L Potassium 4.3 D (3.6-5.0) mmol/L Chloride 109.1 H (98-107) mmol/L Carbon Dioxide 25 D (22-30) mmol/L BUN 25 H (9-20) mg/dL Creatinine 5.0 H (0.8-1.3) mg/dL Glucose 79 (75-100) mg/dL Calcium 7.5 L (8.4-10.2) mg/dL Calcium panel 01/17/22 Range/Units 04:08 Calcium 7.5 L (8.4-10.2) mg/dL Pituitary panel 01/17/22 Range/Units 04:08 Sodium 145 (137-145) mmol/L Potassium 4.3 D (3.6-5.0) mmol/L Chloride 109.1 H (98-107) mmol/L Carbon Dioxide 25 D (22-30) mmol/L BUN 25 H (9-20) mg/dL Creatinine 5.0 H (0.8-1.3) mg/dL Glucose 79 (75-100) mg/dL Calcium 7.5 L (8.4-10.2) mg/dL Adrenal panel 01/17/22 Range/Units 04:08 Sodium 145 (137-145) mmol/L Potassium 4.3 D (3.6-5.0) mmol/L Chloride 109.1 H (98-107) mmol/L Carbon Dioxide 25 D (22-30) mmol/L BUN 25 H (9-20) mg/dL Creatinine 5.0 H (0.8-1.3) mg/dL Glucose 79 (75-100) mg/dL Calcium 7.5 L (8.4-10.2) mg/dL
[2022-01-17] MEDS: DEXTROSE 50% IN WATER (25GM) 50 ML SYRINGE IV PRN (18:04)
[2022-01-18] MEDS: ACETAMINOPHEN 325 MG TAB PO PRN ×2 (03:05→23:35)
[2022-01-18 05:08] LABS: Hematocrit 26.9 % (35.5-45.6); Hemoglobin 8.9 gm/dl (11.8-15.2); Mean Corpuscular HGB Conc 33 % (32-34); Mean Corpuscular Volume 94 fl (84-94); Platelet Count 133 K/mm3 (140-440); Red Blood Count 2.87 M/mm3 (3.65-5.03); Red Cell Distribution Width 18.6 % (13.2-15.2)
[2022-01-18 05:30] LABS: Calcium 7.9 mg/dL (8.4-10.2)
[2022-01-18] MEDS: INSULIN LISPRO 100 UNIT/ML SUB-Q SCH ×4 (06:58→22:00)
[2022-01-18] MEDS: PANTOPRAZOLE 40 MG INJ IV SCH ×2 (09:43→22:45)
--- NOTE | 2022-01-18 11:31 | Progress Note ---
<CHRISTI JEFFRIES - Last Filed: 01/18/22 17:56> Assessment and Plan Assessment and plan: This is a 62-year-old male with ESRD on HD, HTN, CABG x2, aortic dissection s/p thoracic aortic stent, BPH and DM admitted with GI bleeding ICU course to date: 01/15: Patient was transferred to ICU for closer monitoring yesterday afternoon after second episode of GI bleeding was noted and he had a repeat CTA abdomen/pelvis. Patient's hemoglobin dropped to 5 yesterday and was given 2 units PRBC. GI recommends obtaining another CTA if recurrence of GI bleeding noted. 01/16: Patient will get HD today and possibly 25 DC tomorrow. Added hydralazine as needed for hypertension. Started D10 drip due to persistent hypoglycemia. 01/17: Patient remains stable, no s/s of any active bleeding overnight. H&H is stable. Plan for repeat Colonoscopy today by GI. Continue D10w for hypoglycemia and trend CBC 01/18: s/p repeat colonoscopy, diverticuli noted throughout the colon but no evidence of any active bleeding. No bloody stools reported for over 48hrs, H&H and vital signs are stable. GI and general surgery recommendations noted. If bleeding reoccur patient's only option is a total colectomy since patient is not a candidate for any angiography intervention due to history of aortic dissection. Continue PPI, and continue to trend CBC. Advance diet as tolerated, will D/C D10w gtt if patient tolerates PO intake. Continue BG check ACHS, avoid hypoglycemia. Plan for HD today per Nephro. D/W CCM patient is stable for transfer to Telemetry. Assessment and Plan GI: LGIB, moderate protein calorie malnutrition -GI, IR, surgery consulted, appreciate recommendations -Abdomen pelvis CT showed previous placement of thoracic aortic stent graft, 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 Collaterals presumably chronic, gallstones -S/p EGD and 01/12 which showed normal esophagus, mild erythematous mucosa in the antrum of of the body, biopsies obtained, normal duodenum, biopsies obtained and no source of GI bleeding found -S/p colonoscopy on 01/12 due to feeling poor quality however likely diverticular bleed -01/13 CTA abdomen/pelvis showed mild diverticular disease throughout the colon with endoluminal opacification of nearly all of the colon suggesting oral contrast however patient did have a history of oral contrast administration in addition To saturations would include carious excretion of contrast from the gallbladder however this appears out of proportion therefore hemorrhage should be considered, no clear source is identified, redemonstrated vascular disease without change -01/15 CTA abdomen/pelvis previous placement of thoracic aortic stent graft with 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 See report for details -General surgery recommendations noted. -If bleeding reoccur patient's only option is a total colectomy since patient is not a candidate for any angiography intervention due to history of aortic dissection. -Continue PPI, and continue to trend CBC -Advance diet as tolerated : ESRD on HD, h/o BPH -Nephrology consulted, appreciate recommendations -HD per nephrology -Monitor intake and output -Renally dose medications -Avoid nephrotoxic medications -Trend BMP Cardiac: h/o HTN, CABG x2, thoracic aortic aneurysm s/p repair -Hydralazine prn -Blood pressure monitoring per protocol Respiratory: Acute hypoxic respiratory failure -Supplemental oxygen as needed -SPO2 monitor per protocol -Pulmonary hygiene Endo: Hypoglycemia, h/o DM -probably due to NPO status -On D10w gtt -Plan to advance diet as tolerated -will D/C D10w gtt if patient tolerates PO intake. -Continue BG check ACHS -avoid hypoglycemia -Continue hypoglycemic protocol Heme: Acute on chronic anemia of chronic disease, GIB -Presented with GI bleed -Multiple episodes of GI bleed noted throughout stay -S/p 5 unit prbc -h/h q 8 hours -Trend CBC -Transfuse hemoglobin less than 7 GI/DVT Prophylaxis -PPI- Protonix -SCDs to BLE while in bed Advance Care Planning -Disease education data, care plan, diagnoses, and prognosis were discussed with patient at the bedside. Patient is a FULL code. Patient acknowledged understanding and agreed with current care plan. The high probability of a clinically significant, sudden or life threatening deterioration of the [GIB] system(s) required my full and direct attention, intervention and personal management. The aggregate critical care time was [60] minutes. This time is in addition to time spent performing reported procedures but includes the following: [x] Data Review and interpretation [x] Patient assessment and monitoring of vital signs [x] Documentation [x] Medication orders and management Disposition Plan: Transfer to Telemetry Total Time Spent with Patient (Minutes): 60 History Interval history: Patient seen and examined at the bedside. Fully AAO, on 3L NC, denied any pain nor any discomfort. No bloody stools reported for over 48hrs, H&H and vital signs are stable. ESTELA overnight Hospitalist Physical - Constitutional Vitals: Temp Pulse Resp BP Pulse Ox 98.1 F 87 22 168/92 99 01/18/22 08:00 01/18/22 11:00 01/18/22 11:00 01/18/22 11:00 01/18/22 11:00 General appearance: Present: no acute distress, well-nourished, obese - EENT Eyes: Present: PERRL ENT: hearing intact - Neck Neck: Present: normal ROM - Respiratory Respiratory effort: normal Respiratory: left: wheezing, bilateral: diminished - Cardiovascular Rhythm: regular Heart Sounds: Present: S1 & S2 - Extremities Extremities: no ischemia, pulses intact, pulses symmetrical Extremity abnormal: edema - Peripheral Assessment Generalized Edema Type: Non-pitting Edema Degree: 2+ Capillary Refill: < 3 seconds Skin Temperature: Warm Peripheral Pulses: within normal limits - Abdominal General gastrointestinal: soft, non-distended, normal bowel sounds - Integumentary Integumentary: Present: clear, warm, dry - Psychiatric Psychiatric: appropriate mood/affect, cooperative - Neurologic Neurologic: CNII-XII intact, moves all extremities - Allied Health Allied health notes reviewed: nursing, case management Results - Labs CBC & Chem 7: 01/18/22 04:32 01/18/22 04:32 Labs: Laboratory Last Values WBC 10.0 K/mm3 (4.5-11.0) 01/18/22 04:32 RBC 2.87 M/mm3 (3.65-5.03) L 01/18/22 04:32 Hgb 8.9 gm/dl (11.8-15.2) L 01/18/22 04:32 Hct 26.9 % (35.5-45.6) L 01/18/22 04:32 MCV 94 fl (84-94) 01/18/22 04:32 MCH 31 pg (28-32) 01/18/22 04:32 MCHC 33 % (32-34) 01/18/22 04:32 RDW 18.6 % (13.2-15.2) H 01/18/22 04:32 Plt Count 133 K/mm3 (140-440) L 01/18/22 04:32 Lymph % (Auto) 8.0 % (13.4-35.0) L 01/17/22 04:08 Treasure % (Auto) 8.2 % (0.0-7.3) H 01/17/22 04:08 Eos % (Auto) 8.0 % (0.0-4.3) H 01/17/22 04:08 Baso % (Auto) 0.6 % (0.0-1.8) 01/17/22 04:08 Lymph # (Auto) 1.0 K/mm3 (1.2-5.4) L 01/17/22 04:08 Treasure # (Auto) 1.0 K/mm3 (0.0-0.8) H 01/17/22 04:08 Eos # (Auto) 1.0 K/mm3 (0.0-0.4) H 01/17/22 04:08 Baso # (Auto) 0.1 K/mm3 (0.0-0.1) 01/17/22 04:08 Add Manual Diff Complete 01/11/22 13:02 Total Counted 100 01/11/22 13:02 Seg Neutrophils % 75.2 % (40.0-70.0) H 01/17/22 04:08 Seg Neuts % (Manual) 76.0 % (40.0-70.0) H 01/11/22 13:02 Band Neutrophils % 1.0 % 01/11/22 13:02 Lymphocytes % (Manual) 7.0 % (13.4-35.0) L 01/11/22 13:02 Reactive Lymphs % (Man) 0 % 01/11/22 13:02 Monocytes % (Manual) 5.0 % (0.0-7.3) 01/11/22 13:02 Eosinophils % (Manual) 11.0 % (0.0-4.3) H 01/11/22 13:02 Basophils % (Manual) 0 % (0.0-1.8) 01/11/22 13:02 Metamyelocytes % 0 % 01/11/22 13:02 Myelocytes % 0 % 01/11/22 13:02 Promyelocytes % 0 % 01/11/22 13:02 Blast Cells % 0 % 01/11/22 13:02 Nucleated RBC % Not Reportable 01/11/22 13:02 Seg Neutrophils # 9.2 K/mm3 (1.8-7.7) H 01/17/22 04:08 Seg Neutrophils # Man 5.1 K/mm3 (1.8-7.7) 01/11/22 13:02 Band Neutrophils # 0.1 K/mm3 01/11/22 13:02 Lymphocytes # (Manual) 0.5 K/mm3 (1.2-5.4) L 01/11/22 13:02 Abs React Lymphs (Man) 0.0 K/mm3 01/11/22 13:02 Monocytes # (Manual) 0.3 K/mm3 (0.0-0.8) 01/11/22 13:02 Eosinophils # (Manual) 0.7 K/mm3 (0.0-0.4) H 01/11/22 13:02 Basophils # (Manual) 0.0 K/mm3 (0.0-0.1) 01/11/22 13:02 Metamyelocytes # 0.0 K/mm3 01/11/22 13:02 Myelocytes # 0.0 K/mm3 01/11/22 13:02 Promyelocytes # 0.0 K/mm3 01/11/22 13:02 Blast Cells # 0.0 K/mm3 01/11/22 13:02 WBC Morphology Not Reportable 01/11/22 13:02 Hypersegmented Neuts Not Reportable 01/11/22 13:02 Hyposegmented Neuts Not Reportable 01/11/22 13:02 Hypogranular Neuts Not Reportable 01/11/22 13:02 Smudge Cells Not Reportable 01/11/22 13:02 Toxic Granulation Not Reportable 01/11/22 13:02 Toxic Vacuolation Not Reportable 01/11/22 13:02 Dohle Bodies Not Reportable 01/11/22 13:02 Pelger-Huet Anomaly Not Reportable 01/11/22 13:02 Heri Rods Not Reportable 01/11/22 13:02 Platelet Estimate Consistent w auto 01/11/22 13:02 Clumped Platelets Not Reportable 01/11/22 13:02 Plt Clumps, EDTA Not Reportable 01/11/22 13:02 Large Platelets Not Reportable 01/11/22 13:02 Giant Platelets Not Reportable 01/11/22 13:02 Platelet Satelliting Not Reportable 01/11/22 13:02 Plt Morphology Comment Not Reportable 01/11/22 13:02 RBC Morphology Not Reportable 01/11/22 13:02 Dimorphic RBCs Not Reportable 01/11/22 13:02 Polychromasia Not Reportable 01/11/22 13:02 Hypochromasia 2+ 01/11/22 13:02 Poikilocytosis Not Reportable 01/11/22 13:02 Anisocytosis Not Reportable 01/11/22 13:02 Microcytosis Not Reportable 01/11/22 13:02 Macrocytosis 1+ 01/11/22 13:02 Spherocytes Not Reportable 01/11/22 13:02 Pappenheimer Bodies Not Reportable 01/11/22 13:02 Sickle Cells Not Reportable 01/11/22 13:02 Target Cells Not Reportable 01/11/22 13:02 Tear Drop Cells Not Reportable 01/11/22 13:02 Ovalocytes Not Reportable 01/11/22 13:02 Helmet Cells Not Reportable 01/11/22 13:02 Phelps-[place]parland Bodies Not Reportable 01/11/22 13:02 Clifton Rings Not Reportable 01/11/22 13:02 [place] Cells Not Reportable 01/11/22 13:02 Bite Cells Not Reportable 01/11/22 13:02 Crenated Cell Not Reportable 01/11/22 13:02 Elliptocytes Not Reportable 01/11/22 13:02 Acanthocytes (Spur) Not Reportable 01/11/22 13:02 Rouleaux Not Reportable 01/11/22 13:02 Hemoglobin C Crystals Not Reportable 01/11/22 13:02 Schistocytes Not Reportable 01/11/22 13:02 Malaria parasites Not Reportable 01/11/22 13:02 Jose Antonio Bodies Not Reportable 01/11/22 13:02 Hem Pathologist Commnt No 01/11/22 13:02 PT 15.8 Sec. (12.2-14.9) H 01/11/22 09:58 INR 1.13 (0.87-1.13) 01/11/22 09:58 Sodium 141 mmol/L (137-145) 01/18/22 04:32 Potassium 4.5 mmol/L (3.6-5.0) 01/18/22 04:32 Chloride 105.8 mmol/L (98-107) 01/18/22 04:32 Carbon Dioxide 24 mmol/L (22-30) 01/18/22 04:32 Anion Gap 16 mmol/L 01/18/22 04:32 BUN 29 mg/dL (9-20) H 01/18/22 04:32 Creatinine 5.9 mg/dL (0.8-1.3) H 01/18/22 04:32 Estimated GFR 12 ml/min 01/18/22 04:32 BUN/Creatinine Ratio 5 % 01/18/22 04:32 Glucose 81 mg/dL (75-100) 01/18/22 04:32 POC Glucose 107 mg/dL (70-105) H 01/18/22 06:24 Calcium 7.9 mg/dL (8.4-10.2) L 01/18/22 04:32 Phosphorus 6.80 mg/dL (2.5-4.5) H 01/16/22 04:07 Magnesium 1.90 mg/dL (1.7-2.3) 01/16/22 04:07 Total Bilirubin 0.30 mg/dL (0.1-1.2) 01/18/22 04:32 AST 15 units/L (5-40) 01/18/22 04:32 ALT 13 units/L (7-56) 01/18/22 04:32 Alkaline Phosphatase 53 units/L (35-129) 01/18/22 04:32 Total Protein 5.3 g/dL (6.3-8.2) L 01/18/22 04:32 Albumin 3.0 g/dL (3.9-5) L 01/18/22 04:32 Albumin/Globulin Ratio 1.3 % 01/18/22 04:32 Lipase 19 units/L (13-60) 01/11/22 09:58 Blood Type O POSITIVE 01/13/22 05:45 Antibody Screen Negative 01/13/22 05:45 Crossmatch See Detail 01/13/22 05:45 Breaux/IV: Voiding Method Incontinent Active Medications - Current Medications Current Medications: Generic Name Dose Route Start Last Admin Trade Name Freq PRN Reason Stop Dose Admin Acetaminophen 650 mg 01/11/22 16:00 01/18/22 03:05 Acetaminophen 325 Mg Tab PO 650 mg Q4H PRN Administration Pain MILD(1-3)/Fever >100.5/ESQUIVEL Dextrose 50 ml 01/16/22 07:43 01/17/22 18:04 Dextrose 50% In Water (25gm) 50 Ml Syringe IV 10 ml Q30MIN PRN Administration Hypoglycemia Protocol Hydralazine HCl 10 mg 01/16/22 07:45 Hydralazine 20 Mg/1 Ml Inj IV Q4HR PRN Hypertension Sodium Chloride 100 mls @ 999 mls/hr 01/12/22 10:30 Nacl 0.9% IV JUANITO PRN Hypotension Sodium Chloride 500 mls @ 0 mls/hr 01/14/22 21:00 01/14/22 21:25 Nacl 0.9% 500 Ml IV 10 mls/hr DIRECT CA Administration Per Protocol Dextrose 1,000 mls @ 50 mls/hr 01/16/22 10:00 01/17/22 23:54 D10w IV 50 mls/hr DIRECT CA Administration Insulin Human Lispro 0 unit 01/16/22 06:00 01/18/22 06:58 Insulin Lispro 100 Unit/Ml SUB-Q Not Given Q6H CA Protocol Ondansetron HCl 4 mg 01/11/22 15:30 Ondansetron 4 Mg/2 Ml Inj IV Q8H PRN Nausea And Vomiting Pantoprazole Sodium 40 mg 01/11/22 22:00 01/18/22 09:43 Pantoprazole 40 Mg Inj IV 40 mg BID CA Administration Sodium Chloride 10 ml 01/11/22 22:00 01/18/22 09:43 Sodium Chloride 0.9% 10 Ml Flush Syringe IV 10 ml BID CA Administration Sodium Chloride 10 ml 01/11/22 16:00 Sodium Chloride 0.9% 10 Ml Flush Syringe IV PRN PRN LINE FLUSH Nutrition/Malnutrition Assess - Dietary Evaluation Nutrition/Malnutrition Findings: Nutrition Notes Start: 01/12/22 1 5:00 Freq: Status: Active Protocol: Document 01/12/22 15:00 YNES (Rec: 01/12/22 15:29 YNES [id number]) Nutrition Notes Need for Assessment generated from: hand icer,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 Current Diet NPO (since 01/12 00:01). Labs/Tests 01/12: BUN 65, Crea 8.5. Pertinent Medications 01/12: Nutritionally unremarkable. 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 Weight Status Underweight Subjective/Other Information RD consult for skin risk, risk of malnutrition and Low BMI assessments. Pt currently on NPO due a procedure on 01/13. Pt is on Room Air, O2 saturation @ 98%, according to Vital Signs notes. Plan for EGD/Colonoscopy on am, according to Progress notes. Pt presents GI Bleed (Melena/ Hematochezia), according to Progress notes. Pt shows no signs of concern for skin risk at the time, according to Physical Assessment History notes. Pt shows an unspecified area of concern for risk of malnutrition at the time, according to Physical Assessment History notes. Pt's Low BMI seems to correspond to a natural body composition, and not related to a sudden loss of body weight nor chronic malnutrition, since no signs of concern were mentioned in the Physical Assessment History or the Progress notes. Percent of energy/protein needs met: Pt currently on NPO. When pertinent, start on prescribed Clear Liquids Diet, which, provides for energy/ protein needs (590 Kcal/16 g) during LOS. Burn Absent Trauma Absent GI Symptoms Other Food Allergy No Skin Integrity/Comment Unspecified area of concern. 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 As Evidenced by Signs and Symptoms Pt presents GI Bleed (Melena/ Hematochezia), according to Progress notes. #1 Nutrition Diagnosis Underweight Comments: Pt's Low BMI seems to correspond to a natural body composition, and not related to a sudden loss of body weight nor chronic malnutrition, since no signs of concern were mentioned in the Physical Assessment History or the Progress notes. Etiology Uncertain. As Evidenced by Signs and Symptoms BMI: 18.2 Kg/m2. Is patient on ventilator? No Is Patient Ambulatory and/or Out of Bed No REE-([place]-St. Jeor-confined to bed) 1587.876 Kcal/Kg value to use for calculation 34 Approximate Energy Requirements Using 1851 kcal/Kg Calculation Used for Recommendations Kcal/kg Additional Notes Protein: >1.2 g/Kg ABW; >65 g/ day. Fluids: 1 ml/Kcal, or as per MD. Nutrition Intervention Change Diet Order: When pertinent, start Clear Liquids Diet as tolerated. Goal #1 Facilitate PO intake of meals with elemental, textural, or mechanical modification during LOS. Follow-Up By: 01/19/22 Additional Comments When pertinent, start monitoring food tolerance, %PO intake of meals, and BM. <YOEL MARISCAL E - Last Filed: 01/19/22 07:29> Assessment and Plan Assessment and plan: I saw and evaluated the patient. I agree with the findings and the plan of care as documented in the Nurse Practitioner's~note, with the following corrections and additions. Hospitalist Physical - Constitutional Vitals: Temp Pulse Resp BP Pulse Ox 98.5 F 80 26 H 90/55 100 01/19/22 02:42 01/19/22 04:00 01/19/22 04:00 01/19/22 02:42 01/19/22 04:00 Results - Labs CBC & Chem 7: 01/19/22 04:21 01/19/22 04:21 Labs: Laboratory Last Values WBC 8.8 K/mm3 (4.5-11.0) 01/19/22 04:21 RBC 2.81 M/mm3 (3.65-5.03) L 01/19/22 04:21 Hgb 8.6 gm/dl (11.8-15.2) L 01/19/22 04:21 Hct 26.4 % (35.5-45.6) L 01/19/22 04:21 MCV 94 fl (84-94) 01/19/22 04:21 MCH 31 pg (28-32) 01/19/22 04:21 MCHC 33 % (32-34) 01/19/22 04:21 RDW 17.9 % (13.2-15.2) H 01/19/22 04:21 Plt Count 144 K/mm3 (140-440) 01/19/22 04:21 Lymph % (Auto) 8.0 % (13.4-35.0) L 01/17/22 04:08 Treasure % (Auto) 8.2 % (0.0-7.3) H 01/17/22 04:08 Eos % (Auto) 8.0 % (0.0-4.3) H 01/17/22 04:08 Baso % (Auto) 0.6 % (0.0-1.8) 01/17/22 04:08 Lymph # (Auto) 1.0 K/mm3 (1.2-5.4) L 01/17/22 04:08 Treasure # (Auto) 1.0 K/mm3 (0.0-0.8) H 01/17/22 04:08 Eos # (Auto) 1.0 K/mm3 (0.0-0.4) H 01/17/22 04:08 Baso # (Auto) 0.1 K/mm3 (0.0-0.1) 01/17/22 04:08 Add Manual Diff Complete 01/11/22 13:02 Total Counted 100 01/11/22 13:02 Seg Neutrophils % 75.2 % (40.0-70.0) H 01/17/22 04:08 Seg Neuts % (Manual) 76.0 % (40.0-70.0) H 01/11/22 13:02 Band Neutrophils % 1.0 % 01/11/22 13:02 Lymphocytes % (Manual) 7.0 % (13.4-35.0) L 01/11/22 13:02 Reactive Lymphs % (Man) 0 % 01/11/22 13:02 Monocytes % (Manual) 5.0 % (0.0-7.3) 01/11/22 13:02 Eosinophils % (Manual) 11.0 % (0.0-4.3) H 01/11/22 13:02 Basophils % (Manual) 0 % (0.0-1.8) 01/11/22 13:02 Metamyelocytes % 0 % 01/11/22 13:02 Myelocytes % 0 % 01/11/22 13:02 Promyelocytes % 0 % 01/11/22 13:02 Blast Cells % 0 % 01/11/22 13:02 Nucleated RBC % Not Reportable 01/11/22 13:02 Seg Neutrophils # 9.2 K/mm3 (1.8-7.7) H 01/17/22 04:08 Seg Neutrophils # Man 5.1 K/mm3 (1.8-7.7) 01/11/22 13:02 Band Neutrophils # 0.1 K/mm3 01/11/22 13:02 Lymphocytes # (Manual) 0.5 K/mm3 (1.2-5.4) L 01/11/22 13:02 Abs React Lymphs (Man) 0.0 K/mm3 01/11/22 13:02 Monocytes # (Manual) 0.3 K/mm3 (0.0-0.8) 01/11/22 13:02 Eosinophils # (Manual) 0.7 K/mm3 (0.0-0.4) H 01/11/22 13:02 Basophils # (Manual) 0.0 K/mm3 (0.0-0.1) 01/11/22 13:02 Metamyelocytes # 0.0 K/mm3 01/11/22 13:02 Myelocytes # 0.0 K/mm3 01/11/22 13:02 Promyelocytes # 0.0 K/mm3 01/11/22 13:02 Blast Cells # 0.0 K/mm3 01/11/22 13:02 WBC Morphology Not Reportable 01/11/22 13:02 Hypersegmented Neuts Not Reportable 01/11/22 13:02 Hyposegmented Neuts Not Reportable 01/11/22 13:02 Hypogranular Neuts Not Reportable 01/11/22 13:02 Smudge Cells Not Reportable 01/11/22 13:02 Toxic Granulation Not Reportable 01/11/22 13:02 Toxic Vacuolation Not Reportable 01/11/22 13:02 Dohle Bodies Not Reportable 01/11/22 13:02 Pelger-Huet Anomaly Not Reportable 01/11/22 13:02 Heri Rods Not Reportable 01/11/22 13:02 Platelet Estimate Consistent w auto 01/11/22 13:02 Clumped Platelets Not Reportable 01/11/22 13:02 Plt Clumps, EDTA Not Reportable 01/11/22 13:02 Large Platelets Not Reportable 01/11/22 13:02 Giant Platelets Not Reportable 01/11/22 13:02 Platelet Satelliting Not Reportable 01/11/22 13:02 Plt Morphology Comment Not Reportable 01/11/22 13:02 RBC Morphology Not Reportable 01/11/22 13:02 Dimorphic RBCs Not Reportable 01/11/22 13:02 Polychromasia Not Reportable 01/11/22 13:02 Hypochromasia 2+ 01/11/22 13:02 Poikilocytosis Not Reportable 01/11/22 13:02 Anisocytosis Not Reportable 01/11/22 13:02 Microcytosis Not Reportable 01/11/22 13:02 Macrocytosis 1+ 01/11/22 13:02 Spherocytes Not Reportable 01/11/22 13:02 Pappenheimer Bodies Not Reportable 01/11/22 13:02 Sickle Cells Not Reportable 01/11/22 13:02 Target Cells Not Reportable 01/11/22 13:02 Tear Drop Cells Not Reportable 01/11/22 13:02 Ovalocytes Not Reportable 01/11/22 13:02 Helmet Cells Not Reportable 01/11/22 13:02 Phelps-[place]par[place] Bodies Not Reportable 01/11/22 13:02 [place]if[place] Rings Not Reportable 01/11/22 13:02 [place] Cells Not Reportable 01/11/22 13:02 Bite Cells Not Reportable 01/11/22 13:02 Crenated Cell Not Reportable 01/11/22 13:02 Elliptocytes Not Reportable 01/11/22 13:02 Acanthocytes (Spur) Not Reportable 01/11/22 13:02 Rouleaux Not Reportable 01/11/22 13:02 Hemoglobin C Crystals Not Reportable 01/11/22 13:02 Schistocytes Not Reportable 01/11/22 13:02 Malaria parasites Not Reportable 01/11/22 13:02 Jose Antonio Bodies Not Reportable 01/11/22 13:02 Hem Pathologist Commnt No 01/11/22 13:02 PT 15.8 Sec. (12.2-14.9) H 01/11/22 09:58 INR 1.13 (0.87-1.13) 01/11/22 09:58 Sodium 142 mmol/L (137-145) 01/19/22 04:21 Potassium 3.6 mmol/L (3.6-5.0) 01/19/22 04:21 Chloride 103.3 mmol/L (98-107) 01/19/22 04:21 Carbon Dioxide 30 mmol/L (22-30) 01/19/22 04:21 Anion Gap 12 mmol/L 01/19/22 04:21 BUN 13 mg/dL (9-20) 01/19/22 04:21 Creatinine 3.4 mg/dL (0.8-1.3) H 01/19/22 04:21 Estimated GFR 22 ml/min 01/19/22 04:21 BUN/Creatinine Ratio 4 % 01/19/22 04:21 Glucose 77 mg/dL (75-100) 01/19/22 04:21 POC Glucose 120 mg/dL (70-105) H 01/18/22 22:47 Calcium 7.5 mg/dL (8.4-10.2) L 01/19/22 04:21 Phosphorus 6.80 mg/dL (2.5-4.5) H 01/16/22 04:07 Magnesium 1.90 mg/dL (1.7-2.3) 01/16/22 04:07 Total Bilirubin 0.30 mg/dL (0.1-1.2) 01/18/22 04:32 AST 15 units/L (5-40) 01/18/22 04:32 ALT 13 units/L (7-56) 01/18/22 04:32 Alkaline Phosphatase 53 units/L (35-129) 01/18/22 04:32 Total Protein 5.3 g/dL (6.3-8.2) L 01/18/22 04:32 Albumin 3.0 g/dL (3.9-5) L 01/18/22 04:32 Albumin/Globulin Ratio 1.3 % 01/18/22 04:32 Lipase 19 units/L (13-60) 01/11/22 09:58 Blood Type O POSITIVE 01/13/22 05:45 Antibody Screen Negative 01/13/22 05:45 Crossmatch See Detail 01/13/22 05:45 Breaux/IV: Voiding Method Incontinent Active Medications - Current Medications Current Medications: Generic Name Dose Route Start Last Admin Trade Name Freq PRN Reason Stop Dose Admin Acetaminophen 650 mg 01/11/22 16:00 01/18/22 23:35 Acetaminophen 325 Mg Tab PO 650 mg Q4H PRN Administration Pain MILD(1-3)/Fever >100.5/ESQUIVEL Dextrose 50 ml 01/16/22 07:43 01/17/22 18:04 Dextrose 50% In Water (25gm) 50 Ml Syringe IV 10 ml Q30MIN PRN Administration Hypoglycemia Protocol Hydralazine HCl 10 mg 01/16/22 07:45 Hydralazine 20 Mg/1 Ml Inj IV Q4HR PRN Hypertension Sodium Chloride 100 mls @ 999 mls/hr 01/12/22 10:30 Nacl 0.9% IV JUANITO PRN Hypotension Insulin Human Lispro 0 unit 01/18/22 16:30 01/18/22 22:00 Insulin Lispro 100 Unit/Ml SUB-Q Not Given ACHS CA Protocol Ondansetron HCl 4 mg 01/11/22 15:30 Ondansetron 4 Mg/2 Ml Inj IV Q8H PRN Nausea And Vomiting Pantoprazole Sodium 40 mg 01/11/22 22:00 01/18/22 22:45 Pantoprazole 40 Mg Inj IV 40 mg BID CA Administration Sodium Chloride 10 ml 01/11/22 22:00 01/18/22 22:46 Sodium Chloride 0.9% 10 Ml Flush Syringe IV 10 ml BID CA Administration Sodium Chloride 10 ml 01/11/22 16:00 Sodium Chloride 0.9% 10 Ml Flush Syringe IV PRN PRN LINE FLUSH Nutrition/Malnutrition Assess - Dietary Evaluation Nutrition/Malnutrition Findings: Nutrition Notes Start: 01/12/22 15 :00 Freq: Status: Active Protocol: Document 01/12/22 15:00 YNES (Rec: 01/12/22 15:29 YNES [id number]) Nutrition Notes Need for Assessment generated from: hand icer,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 Current Diet NPO (since 01/12 00:01). Labs/Tests 01/12: BUN 65, Crea 8.5. Pertinent Medications 01/12: Nutritionally unremarkable. 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 Weight Status Underweight Subjective/Other Information RD consult for skin risk, risk of malnutrition and Low BMI assessments. Pt currently on NPO due a procedure on 01/13. Pt is on Room Air, O2 saturation @ 98%, according to Vital Signs notes. Plan for EGD/Colonoscopy on am, according to Progress notes. Pt presents GI Bleed (Melena/ Hematochezia), according to Progress notes. Pt shows no signs of concern for skin risk at the time, according to Physical Assessment History notes. Pt shows an unspecified area of concern for risk of malnutrition at the time, according to Physical Assessment History notes. Pt's Low BMI seems to correspond to a natural body composition, and not related to a sudden loss of body weight nor chronic malnutrition, since no signs of concern were mentioned in the Physical Assessment History or the Progress notes. Percent of energy/protein needs met: Pt currently on NPO. When pertinent, start on prescribed Clear Liquids Diet, which, provides for energy/ protein needs (590 Kcal/16 g) during LOS. Burn Absent Trauma Absent GI Symptoms Other Food Allergy No Skin Integrity/Comment Unspecified area of concern. 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 As Evidenced by Signs and Symptoms Pt presents GI Bleed (Melena/ Hematochezia), according to Progress notes. #1 Nutrition Diagnosis Underweight Comments: Pt's Low BMI seems to correspond to a natural body composition, and not related to a sudden loss of body weight nor chronic malnutrition, since no signs of concern were mentioned in the Physical Assessment History or the Progress notes. Etiology Uncertain. As Evidenced by Signs and Symptoms BMI: 18.2 Kg/m2. Is patient on ventilator? No Is Patient Ambulatory and/or Out of Bed No REE-([place]-confined to bed) 1587.876 Kcal/Kg value to use for calculation 34 Approximate Energy Requirements Using 1851 kcal/Kg Calculation Used for Recommendations Kcal/kg Additional Notes Protein: >1.2 g/Kg ABW; >65 g/ day. Fluids: 1 ml/Kcal, or as per MD. Nutrition Intervention Change Diet Order: When pertinent, start Clear Liquids Diet as tolerated. Goal #1 Facilitate PO intake of meals with elemental, textural, or mechanical modification during LOS. Follow-Up By: 01/19/22 Additional Comments When pertinent, start monitoring food tolerance, %PO intake of meals, and BM.
--- NOTE | 2022-01-18 16:09 | Progress Note ---
Assessment and Plan - Patient Problems (1) Hyperkalemia Current Visit: No Status: Acute Plan to address problem: we will treat with hemodialysis . Please maintain patient on low potassium diet. serum potassium levels are stable at this time. (2) Lower GI bleed Current Visit: Yes Status: Acute Plan to address problem: no recurrent episodes overnight. Hemoglobin/hematocrit levels are stable. GI recommendations reviewed. s/p colonoscopy with findings consistent with moore- diverticuli but no obvious source of bleed. (3) ESRD needing dialysis Current Visit: Yes Status: Chronic Plan to address problem: continue hemodialysis treatment on the inpatient Sunday/Sunday/Sunday HD schedule. (4) HTN (hypertension) Current Visit: Yes Status: Chronic Qualifiers: Hypertension type: primary hypertension Qualified Code(s): I10 - Essential (primary) hypertension Plan to address problem: overall blood pressures are remaining stable at this time and we will continue to monitor closely. Subjective Date of service: 01/18/22 Principal diagnosis: End-stage renal disease, gastrointestinal bleeding Interval history: Colonoscopy indicating presence of moore-diverticuli but no obvious source of bleed. Plan for HD today. Objective - Vital Signs Vital signs: Vital Signs - 12hr 01/18/22 01/18/22 01/18/22 05:00 06:00 07:00 Temperature Pulse Rate 74 72 76 Pulse Rate [ From Monitor] Respiratory 27 H 22 21 Rate Blood Pressure 163/93 163/85 160/84 O2 Sat by Pulse 100 83 L 100 Oximetry 01/18/22 01/18/22 01/18/22 07:54 08:00 09:00 Temperature 98.1 F Pulse Rate 101 H 91 H Pulse Rate [ 97 H From Monitor] Respiratory 15 26 H Rate Blood Pressure 160/84 163/93 O2 Sat by Pulse 100 100 100 Oximetry 01/18/22 01/18/22 01/18/22 10:00 11:00 11:44 Temperature 98.2 F Pulse Rate 72 87 Pulse Rate [ From Monitor] Respiratory 22 22 Rate Blood Pressure 167/92 168/92 O2 Sat by Pulse 99 99 Oximetry 01/18/22 01/18/22 01/18/22 11:46 11:58 12:00 Temperature Pulse Rate 75 73 Pulse Rate [ 75 From Monitor] Respiratory 25 H 24 Rate Blood Pressure 163/83 O2 Sat by Pulse 100 96 Oximetry 01/18/22 01/18/22 01/18/22 13:00 14:00 15:00 Temperature Pulse Rate 78 99 H 79 Pulse Rate [ From Monitor] Respiratory 25 H 19 26 H Rate Blood Pressure 164/93 160/93 142/91 O2 Sat by Pulse 99 100 100 Oximetry 01/18/22 01/18/22 01/18/22 15:42 15:49 15:50 Temperature 97.8 F Pulse Rate 85 Pulse Rate [ 80 From Monitor] Respiratory 26 H Rate Blood Pressure O2 Sat by Pulse 100 Oximetry - General Appearance General appearance: appears stated age EENT: ATNC Neck: no JVD Respiratory: Present: Clear to Ascultation Cardiology: regular Gastrointestinal: normal Integumentary: no rash Neurologic: no focal deficit Musculoskeletal: deferred Psychiatric: mood/affect appropriate - Lab 01/18/22 04:32 01/18/22 04:32 Most recent lab results Calcium 7.9 mg/dL (8.4-10.2) L 01/18/22 04:32 Phosphorus 6.80 mg/dL (2.5-4.5) H 01/16/22 04:07 Magnesium 1.90 mg/dL (1.7-2.3) 01/16/22 04:07 - Allied health notes Allied health notes reviewed: nursing Medications & Allergies - Medications Allergies/Adverse Reactions: Allergies No Known Allergies Allergy (Verified 01/11/22 09:20) Home Medications: Home Medications Medication Instructions Recorded Confirmed Last Taken Type Tamsulosin [Flomax] 0.4 mg PO QDAY #30 cap 01/07/20 01/16/22 Unknown Rx Bacitracin Zinc Oint [Antibiotic 1 applicatio TP BID #1 tube 03/21/20 01/16/22 Unknown Rx Oint] Benzonatate [Tessalon Perles] 100 mg PO Q8HR PRN #20 capsule 03/21/20 01/16/22 Unknown Rx Acetaminophen [Tylenol] 325 mg PO Q6H PRN 01/16/22 01/16/22 Unknown History Amiodarone [Cordarone 200 MG TAB] 200 mg PO QDAY 01/16/22 01/16/22 Unknown History Aspirin [[place]] 81 mg PO QDAY 01/16/22 01/16/22 Unknown History Atorvastatin [Lipitor Tab] 80 mg PO QHS 01/16/22 01/16/22 Unknown History Calcium Acetate [Phoslo] 667 mg PO QDAY 01/16/22 01/16/22 Unknown History Ergocalciferol (Vitamin D2) 1,250 mcg PO QDAY 01/16/22 01/16/22 Unknown History [Drisdol] Glycerin/Propylene Glycol 30 ml OP QDAY PRN 01/16/22 01/16/22 Unknown History [Artificial Tears Drops] Insulin Lispro [Admelog] See Protocol SQ ACHS 01/16/22 01/16/22 Unknown History Lactobacillus Acidophilus 0.5 mg PO QDAY 01/16/22 01/16/22 Unknown History [Acidophilus Probiotic] Lactulose [Cephulac] 20 gm PO BID PRN 01/16/22 01/16/22 Unknown History Mag Hydrox/Aluminum Hyd/Simeth 10 ml PO QDAY 01/16/22 01/16/22 Unknown History [Mylanta Maximum Strength Pkt] Melatonin [Melatonin 5MG CAP] 5 mg PO QHS 01/16/22 01/16/22 Unknown History Omeprazole Magnesium [PriLOSEC Otc] 20 mg PO QDAY 01/16/22 01/16/22 Unknown History Sennosides Tab [Senokot] 8.6 mg PO BID PRN 01/16/22 01/16/22 Unknown History Torsemide [Demadex] 100 mg PO QDAY 01/16/22 01/16/22 Unknown History Vit B Comp No.3/Folic/C/Biotin 1 tab PO QDAY 01/16/22 01/16/22 Unknown History [Prisca-Theodore Rx Tablet] amLODIPine 10 mg PO QDAY 01/16/22 01/16/22 Unknown History carvediloL [Coreg] 6.25 mg PO BID 01/16/22 01/16/22 Unknown History megestroL [Megace] 40 mg PO QDAY 01/16/22 01/16/22 Unknown History polyethylene glycoL 3350 [Miralax 17 gm PO BID PRN 01/16/22 01/16/22 Unknown History 3350] Active Medications: Generic Name Dose Route Start Last Admin Trade Name Freq PRN Reason Stop Dose Admin Acetaminophen 650 mg 01/11/22 16:00 01/18/22 03:05 Acetaminophen 325 Mg Tab PO 650 mg Q4H PRN Administration Pain MILD(1-3)/Fever >100.5/ESQUIVEL Dextrose 50 ml 01/16/22 07:43 01/17/22 18:04 Dextrose 50% In Water (25gm) 50 Ml Syringe IV 10 ml Q30MIN PRN Administration Hypoglycemia Protocol Hydralazine HCl 10 mg 01/16/22 07:45 Hydralazine 20 Mg/1 Ml Inj IV Q4HR PRN Hypertension Sodium Chloride 100 mls @ 999 mls/hr 01/12/22 10:30 Nacl 0.9% IV JUANITO PRN Hypotension Sodium Chloride 500 mls @ 0 mls/hr 01/14/22 21:00 01/14/22 21:25 Nacl 0.9% 500 Ml IV 10 mls/hr DIRECT CA Administration Per Protocol Dextrose 1,000 mls @ 50 mls/hr 01/16/22 10:00 01/17/22 23:54 D10w IV 50 mls/hr DIRECT CA Administration Insulin Human Lispro 0 unit 01/16/22 06:00 01/18/22 13:06 Insulin Lispro 100 Unit/Ml SUB-Q Not Given Q6H CA Protocol Ondansetron HCl 4 mg 01/11/22 15:30 Ondansetron 4 Mg/2 Ml Inj IV Q8H PRN Nausea And Vomiting Pantoprazole Sodium 40 mg 01/11/22 22:00 01/18/22 09:43 Pantoprazole 40 Mg Inj IV 40 mg BID CA Administration Sodium Chloride 10 ml 01/11/22 22:00 01/18/22 09:43 Sodium Chloride 0.9% 10 Ml Flush Syringe IV 10 ml BID CA Administration Sodium Chloride 10 ml 01/11/22 16:00 Sodium Chloride 0.9% 10 Ml Flush Syringe IV PRN PRN LINE FLUSH
--- NOTE | 2022-01-18 17:13 | Progress Note ---
Assessment and Plan 61 y/o male with suspected lower GI bleed 01/18/22: Reviewed GI and Surgery notes. Patient not a candidate for any IR procedure. Surgery only option and awaiting next bleed if it happens. Even with bleeding in the past, hemodynamically patient has been stable. Will transfer to floor with telemetry. Will sign off once out of unit. 01/17/22: Continue NPO state. Colon this afternoon. Called [facility] but no answer. Wanted to speak with them about the exact need of procedure. Given his distorted anatomy this is needed to help surgery figure out their exact approach. Will attempt to call them back later today. Guarded Prognosis to poor prognosis. 01/16/22: Spoke with IR who agreed to reach out with surgery. Now we have a plan in place. No transfer. HD now and then obtain tagged RBC scan once he is able to lie flat. 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 Continue liquid diet. Most likely will need total colectomy based on discussion with surgery. Guarded to poor prognosis. 1. Q6hour H/H's. 2. Transfuse for Hemoglobin <7 3. Per GI clear liquid diet 4. IMS speaking with vascular. Reviewed their note from earlier in the stay. Not sure if stat CTA is going to be helpful as vascular commented that he would not be a good candidate for intervention on their part and suggested transfer to tertiary care. Subjective Date of service: 01/18/22 Principal diagnosis: End-stage renal disease, gastrointestinal bleeding Interval history: Scoped by GI, Multiple Diverticuli, but no evidence of active bleeding. Objective Vital Signs - 12hr 01/18/22 01/18/22 01/18/22 06:00 07:00 07:54 Temperature Pulse Rate 72 76 Pulse Rate [ From Monitor] Respiratory 22 21 Rate Blood Pressure 163/85 160/84 O2 Sat by Pulse 83 L 100 100 Oximetry 01/18/22 01/18/22 01/18/22 08:00 09:00 10:00 Temperature 98.1 F Pulse Rate 101 H 91 H 72 Pulse Rate [ 97 H From Monitor] Respiratory 15 26 H 22 Rate Blood Pressure 160/84 163/93 167/92 O2 Sat by Pulse 100 100 99 Oximetry 01/18/22 01/18/22 01/18/22 11:00 11:44 11:46 Temperature 98.2 F Pulse Rate 87 Pulse Rate [ 75 From Monitor] Respiratory 22 25 H Rate Blood Pressure 168/92 O2 Sat by Pulse 99 100 Oximetry 01/18/22 01/18/22 01/18/22 11:58 12:00 13:00 Temperature Pulse Rate 75 73 78 Pulse Rate [ From Monitor] Respiratory 24 25 H Rate Blood Pressure 163/83 164/93 O2 Sat by Pulse 96 99 Oximetry 01/18/22 01/18/22 01/18/22 14:00 15:00 15:42 Temperature Pulse Rate 99 H 79 Pulse Rate [ 80 From Monitor] Respiratory 19 26 H 26 H Rate Blood Pressure 160/93 142/91 O2 Sat by Pulse 100 100 100 Oximetry 01/18/22 01/18/22 01/18/22 15:49 15:50 16:00 Temperature 97.8 F Pulse Rate 85 104 H Pulse Rate [ From Monitor] Respiratory 18 Rate Blood Pressure 146/86 O2 Sat by Pulse 100 Oximetry CBC and BMP: 01/18/22 04:32 01/18/22 04:32 ABG, PT/INR, D-dimer: PT/INR, D-dimer PT 15.8 Sec. (12.2-14.9) H 01/11/22 09:58 INR 1.13 (0.87-1.13) 01/11/22 09:58 Abnormal lab findings: Abnormal Labs 01/11/22 01/11/22 01/11/22 09:58 09:58 09:58 WBC RBC 2.78 L Hgb 9.1 L Hct 27.8 L MCV 100 H MCH 33 H MCHC RDW 18.2 H Plt Count 133 L Lymph % (Auto) [place] % (Auto) 12.4 H Eos % (Auto) 7.5 H Lymph # (Auto) 1.1 L [place] # (Auto) Eos # (Auto) Seg Neutrophils % Seg Neuts % (Manual) Lymphocytes % (Manual) Eosinophils % (Manual) Seg Neutrophils # Lymphocytes # (Manual) Eosinophils # (Manual) PT 15.8 H Sodium Potassium Chloride Carbon Dioxide BUN 65 H Creatinine 8.5 H Glucose 138 H POC Glucose Calcium Phosphorus Total Protein Albumin 3.7 L Crossmatch 01/11/22 01/11/22 01/11/22 13:02 18:43 23:33 WBC RBC 2.44 L Hgb 7.8 L 7.1 L 7.6 L Hct 24.6 L 22.2 L 23.6 L MCV 101 H MCH MCHC RDW 18.1 H Plt Count 131 L Lymph % (Auto) [place] % (Auto) Eos % (Auto) Lymph # (Auto) [place] # (Auto) Eos # (Auto) Seg Neutrophils % Seg Neuts % (Manual) 76.0 H Lymphocytes % (Manual) 7.0 L Eosinophils % (Manual) 11.0 H Seg Neutrophils # Lymphocytes # (Manual) 0.5 L Eosinophils # (Manual) 0.7 H PT Sodium Potassium Chloride Carbon Dioxide BUN Creatinine Glucose POC Glucose Calcium Phosphorus Total Protein Albumin Crossmatch 01/13/22 01/13/22 01/13/22 04:00 04:00 05:45 WBC RBC 1.44 L Hgb 4.7 L* Hct 14.7 L* D MCV 102 H MCH MCHC RDW 18.2 H Plt Count 118 L Lymph % (Auto) 10.0 L [place] % (Auto) 7.8 H Eos % (Auto) Lymph # (Auto) 1.0 L [place] # (Auto) Eos # (Auto) Seg Neutrophils % 79.3 H Seg Neuts % (Manual) Lymphocytes % (Manual) Eosinophils % (Manual) Seg Neutrophils # 8.0 H Lymphocytes # (Manual) Eosinophils # (Manual) PT Sodium 136 L Potassium 5.3 H Chloride Carbon Dioxide 20 L BUN 93 H Creatinine 10.1 H Glucose POC Glucose Calcium 7.6 L Phosphorus Total Protein 5.1 L Albumin 3.1 L Crossmatch See Detail 01/13/22 01/13/22 01/13/22 15:14 21:19 22:07 WBC RBC Hgb 5.9 L* 5.8 L* Hct 17.5 L* 16.7 L* MCV MCH MCHC RDW Plt Count Lymph % (Auto) [place] % (Auto) Eos % (Auto) Lymph # (Auto) [place] # (Auto) Eos # (Auto) Seg Neutrophils % Seg Neuts % (Manual) Lymphocytes % (Manual) Eosinophils % (Manual) Seg Neutrophils # Lymphocytes # (Manual) Eosinophils # (Manual) PT Sodium Potassium Chloride Carbon Dioxide BUN Creatinine Glucose POC Glucose 55 L Calcium Phosphorus Total Protein Albumin Crossmatch 01/14/22 01/14/22 01/15/22 10:51 19:49 05:33 WBC RBC 2.36 L Hgb 7.5 L 5.8 L* 7.5 L Hct 22.4 L 17.0 L* 21.6 L MCV 95 H MCH MCHC RDW 18.9 H Plt Count 42 L Lymph % (Auto) [place] % (Auto) 8.4 H Eos % (Auto) 5.7 H Lymph # (Auto) 1.1 L [place] # (Auto) Eos # (Auto) Seg Neutrophils % Seg Neuts % (Manual) Lymphocytes % (Manual) Eosinophils % (Manual) Seg Neutrophils # Lymphocytes # (Manual) Eosinophils # (Manual) PT Sodium Potassium Chloride Carbon Dioxide BUN Creatinine Glucose POC Glucose Calcium Phosphorus Total Protein Albumin Crossmatch 01/15/22 01/15/22 01/15/22 05:58 09:29 09:42 WBC RBC Hgb Hct MCV MCH MCHC RDW Plt Count Lymph % (Auto) [place] % (Auto) Eos % (Auto) Lymph # (Auto) [place] # (Auto) Eos # (Auto) Seg Neutrophils % Seg Neuts % (Manual) Lymphocytes % (Manual) Eosinophils % (Manual) Seg Neutrophils # Lymphocytes # (Manual) Eosinophils # (Manual) PT Sodium Potassium Chloride Carbon Dioxide BUN 48 H Creatinine 6.2 H Glucose POC Glucose 62 L 68 L Calcium 7.6 L Phosphorus Total Protein Albumin Crossmatch 01/15/22 01/15/22 01/15/22 15:14 17:23 21:59 WBC 11.4 H RBC 2.53 L Hgb 7.8 L 10.4 L Hct 25.0 L 32.1 L D MCV 99 H MCH MCHC 31 L RDW 20.3 H Plt Count 122 L D Lymph % (Auto) [place] % (Auto) Eos % (Auto) Lymph # (Auto) [place] # (Auto) Eos # (Auto) Seg Neutrophils % Seg Neuts % (Manual) Lymphocytes % (Manual) Eosinophils % (Manual) Seg Neutrophils # Lymphocytes # (Manual) Eosinophils # (Manual) PT Sodium Potassium Chloride Carbon Dioxide BUN Creatinine Glucose POC Glucose 66 L Calcium Phosphorus Total Protein Albumin Crossmatch 01/16/22 01/16/22 01/16/22 00:51 01:29 04:07 WBC 12.6 H RBC 3.19 L Hgb 9.9 L Hct 29.8 L MCV MCH MCHC RDW 18.9 H Plt Count 110 L Lymph % (Auto) [place] % (Auto) Eos % (Auto) Lymph # (Auto) [place] # (Auto) Eos # (Auto) Seg Neutrophils % Seg Neuts % (Manual) Lymphocytes % (Manual) Eosinophils % (Manual) Seg Neutrophils # Lymphocytes # (Manual) Eosinophils # (Manual) PT Sodium Potassium Chloride Carbon Dioxide BUN Creatinine Glucose POC Glucose 66 L 69 L Calcium Phosphorus Total Protein Albumin Crossmatch 01/16/22 01/16/22 01/16/22 04:07 05:33 06:03 WBC RBC Hgb Hct MCV MCH MCHC RDW Plt Count Lymph % (Auto) [place] % (Auto) Eos % (Auto) Lymph # (Auto) [place] # (Auto) Eos # (Auto) Seg Neutrophils % Seg Neuts % (Manual) Lymphocytes % (Manual) Eosinophils % (Manual) Seg Neutrophils # Lymphocytes # (Manual) Eosinophils # (Manual) PT Sodium Potassium 6.3 H* D Chloride 111.3 H Carbon Dioxide 17 L D BUN 49 H Creatinine 6.1 H Glucose POC Glucose 54 L 57 L Calcium 8.0 L Phosphorus 6.80 H Total Protein Albumin Crossmatch 01/16/22 01/16/22 01/16/22 06:05 06:29 11:04 WBC RBC Hgb Hct MCV MCH MCHC RDW Plt Count Lymph % (Auto) [place] % (Auto) Eos % (Auto) Lymph # (Auto) [place] # (Auto) Eos # (Auto) Seg Neutrophils % Seg Neuts % (Manual) Lymphocytes % (Manual) Eosinophils % (Manual) Seg Neutrophils # Lymphocytes # (Manual) Eosinophils # (Manual) PT Sodium Potassium Chloride Carbon Dioxide BUN Creatinine Glucose POC Glucose 61 L 68 L 64 L Calcium Phosphorus Total Protein Albumin Crossmatch 01/16/22 01/16/22 01/17/22 11:40 16:11 04:08 WBC RBC Hgb 10.1 L Hct 30.4 L MCV MCH MCHC RDW Plt Count Lymph % (Auto) [place] % (Auto) Eos % (Auto) Lymph # (Auto) [place] # (Auto) Eos # (Auto) Seg Neutrophils % Seg Neuts % (Manual) Lymphocytes % (Manual) Eosinophils % (Manual) Seg Neutrophils # Lymphocytes # (Manual) Eosinophils # (Manual) PT Sodium Potassium Chloride 109.1 H Carbon Dioxide BUN 25 H Creatinine 5.0 H Glucose POC Glucose 124 H Calcium 7.5 L Phosphorus Total Protein Albumin Crossmatch 01/17/22 01/18/22 01/18/22 04:08 04:32 04:32 WBC 12.2 H RBC 2.97 L 2.87 L Hgb 9.2 L 8.9 L Hct 27.7 L 26.9 L MCV MCH MCHC RDW 19.0 H 18.6 H Plt Count 117 L 133 L Lymph % (Auto) 8.0 L [place] % (Auto) 8.2 H Eos % (Auto) 8.0 H Lymph # (Auto) 1.0 L [place] # (Auto) 1.0 H Eos # (Auto) 1.0 H Seg Neutrophils % 75.2 H Seg Neuts % (Manual) Lymphocytes % (Manual) Eosinophils % (Manual) Seg Neutrophils # 9.2 H Lymphocytes # (Manual) Eosinophils # (Manual) PT Sodium Potassium Chloride Carbon Dioxide BUN 29 H Creatinine 5.9 H Glucose POC Glucose Calcium 7.9 L Phosphorus Total Protein 5.3 L Albumin 3.0 L Crossmatch 01/18/22 01/18/22 05:10 06:24 WBC RBC Hgb Hct MCV MCH MCHC RDW Plt Count Lymph % (Auto) [place] % (Auto) Eos % (Auto) Lymph # (Auto) [place] # (Auto) Eos # (Auto) Seg Neutrophils % Seg Neuts % (Manual) Lymphocytes % (Manual) Eosinophils % (Manual) Seg Neutrophils # Lymphocytes # (Manual) Eosinophils # (Manual) PT Sodium Potassium Chloride Carbon Dioxide BUN Creatinine Glucose POC Glucose 65 L 107 H Calcium Phosphorus Total Protein Albumin Crossmatch Allied health notes reviewed: nursing
--- NOTE | 2022-01-18 17:32 | Progress Note ---
Assessment and Plan 61-year-old male with massive lower GI bleeding likely from diverticular disease in the colon but of unspecific location. Patient is afebrile and stable with no bloody bowel movement since yesterday. I spoke with Dr. Macias in interventional radiology who said that angiographic intervention not ideal for this patient who has aortic dissection and therefore friable aortic wall and not a candidate for intraluminal therapy. 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 Patient can continue to advance as tolerated. Discussed with patient at length if he were to rebleed he will require subtotal colectomy with ileostomy. Patient expressed understanding. Continue supportive care as indicated. OK to transfer pt to the floor. Subjective Date of service: 01/18/22 Narrative: No acute events of bleeds overnight. Pt with no complaints advancing to soft diet. Objective Vital Signs - 12hr 01/18/22 01/18/22 01/18/22 06:00 07:00 07:54 Temperature Pulse Rate 72 76 Pulse Rate [ From Monitor] Respiratory 22 21 Rate Blood Pressure 163/85 160/84 O2 Sat by Pulse 83 L 100 100 Oximetry 01/18/22 01/18/22 01/18/22 08:00 09:00 10:00 Temperature 98.1 F Pulse Rate 101 H 91 H 72 Pulse Rate [ 97 H From Monitor] Respiratory 15 26 H 22 Rate Blood Pressure 160/84 163/93 167/92 O2 Sat by Pulse 100 100 99 Oximetry 01/18/22 01/18/22 01/18/22 11:00 11:44 11:46 Temperature 98.2 F Pulse Rate 87 Pulse Rate [ 75 From Monitor] Respiratory 22 25 H Rate Blood Pressure 168/92 O2 Sat by Pulse 99 100 Oximetry 01/18/22 01/18/22 01/18/22 11:58 12:00 13:00 Temperature Pulse Rate 75 73 78 Pulse Rate [ From Monitor] Respiratory 24 25 H Rate Blood Pressure 163/83 164/93 O2 Sat by Pulse 96 99 Oximetry 01/18/22 01/18/22 01/18/22 14:00 15:00 15:42 Temperature Pulse Rate 99 H 79 Pulse Rate [ 80 From Monitor] Respiratory 19 26 H 26 H Rate Blood Pressure 160/93 142/91 O2 Sat by Pulse 100 100 100 Oximetry 01/18/22 01/18/22 01/18/22 15:49 15:50 16:00 Temperature 97.8 F Pulse Rate 85 104 H Pulse Rate [ From Monitor] Respiratory 18 Rate Blood Pressure 146/86 O2 Sat by Pulse 100 Oximetry - General physical appearance well developed, no distress, chronically ill - Eyes PERRL - Respiratory normal expansion, normal respiratory effort - Abdomen soft, not tender - Psychiatric oriented to time, oriented to person - Labs 01/18/22 04:32 01/18/22 04:32 Diabetes panel 01/18/22 Range/Units 04:32 Sodium 141 (137-145) mmol/L Potassium 4.5 (3.6-5.0) mmol/L Chloride 105.8 (98-107) mmol/L Carbon Dioxide 24 (22-30) mmol/L BUN 29 H (9-20) mg/dL Creatinine 5.9 H (0.8-1.3) mg/dL Glucose 81 (75-100) mg/dL Calcium 7.9 L (8.4-10.2) mg/dL AST 15 (5-40) units/L ALT 13 (7-56) units/L Alkaline Phosphatase 53 (35-129) units/L Total Protein 5.3 L (6.3-8.2) g/dL Albumin 3.0 L (3.9-5) g/dL Calcium panel 01/18/22 Range/Units 04:32 Calcium 7.9 L (8.4-10.2) mg/dL Albumin 3.0 L (3.9-5) g/dL Pituitary panel 01/18/22 Range/Units 04:32 Sodium 141 (137-145) mmol/L Potassium 4.5 (3.6-5.0) mmol/L Chloride 105.8 (98-107) mmol/L Carbon Dioxide 24 (22-30) mmol/L BUN 29 H (9-20) mg/dL Creatinine 5.9 H (0.8-1.3) mg/dL Glucose 81 (75-100) mg/dL Calcium 7.9 L (8.4-10.2) mg/dL Adrenal panel 01/18/22 Range/Units 04:32 Sodium 141 (137-145) mmol/L Potassium 4.5 (3.6-5.0) mmol/L Chloride 105.8 (98-107) mmol/L Carbon Dioxide 24 (22-30) mmol/L BUN 29 H (9-20) mg/dL Creatinine 5.9 H (0.8-1.3) mg/dL Glucose 81 (75-100) mg/dL Calcium 7.9 L (8.4-10.2) mg/dL Total Bilirubin 0.30 (0.1-1.2) mg/dL AST 15 (5-40) units/L ALT 13 (7-56) units/L Alkaline Phosphatase 53 (35-129) units/L Total Protein 5.3 L (6.3-8.2) g/dL Albumin 3.0 L (3.9-5) g/dL
[2022-01-19 05:05] LABS: Hematocrit 26.4 % (35.5-45.6); Hemoglobin 8.6 gm/dl (11.8-15.2); Mean Corpuscular HGB Conc 33 % (32-34); Mean Corpuscular Volume 94 fl (84-94); Platelet Count 144 K/mm3 (140-440); Red Blood Count 2.81 M/mm3 (3.65-5.03); Red Cell Distribution Width 17.9 % (13.2-15.2)
[2022-01-19 05:26] LABS: Calcium 7.5 mg/dL (8.4-10.2)
--- NOTE | 2022-01-19 07:26 | Consultation ---
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 denies: smoking, alcohol abuse, prescription drug abuse Family history: no significant family history Medications and Allergies Allergies Allergy/AdvReac Type Severity Reaction Status Date / Time No Known Allergies Allergy Verified 01/11/22 09:20 Home Medications Medication Instructions Recorded Confirmed Last Taken Type Tamsulosin [Flomax] 0.4 mg PO QDAY #30 cap 01/07/20 01/16/22 Unknown Rx Bacitracin Zinc Oint [Antibiotic 1 applicatio TP BID #1 tube 03/21/20 01/16/22 Unknown Rx Oint] Benzonatate [Tessalon Perles] 100 mg PO Q8HR PRN #20 capsule 03/21/20 01/16/22 Unknown Rx Acetaminophen [Tylenol] 325 mg PO Q6H PRN 01/16/22 01/16/22 Unknown History Atorvastatin [Lipitor] 80 mg PO QHS 01/16/22 01/16/22 Unknown History Calcium Acetate [Phoslo] 667 mg PO QDAY 01/16/22 01/16/22 Unknown History Ergocalciferol (Vitamin D2) 1,250 mcg PO QDAY 01/16/22 01/16/22 Unknown History [Drisdol] Glycerin/Propylene Glycol 30 ml OP QDAY PRN 01/16/22 01/16/22 Unknown History [Artificial Tears Drops] Insulin Lispro [Admelog] See Protocol SQ ACHS 01/16/22 01/16/22 Unknown History Lactobacillus Acidophilus 0.5 mg PO QDAY 01/16/22 01/16/22 Unknown History [Acidophilus Probiotic] Lactulose [Cephulac] 20 gm PO BID PRN 01/16/22 01/16/22 Unknown History Mag Hydrox/Aluminum Hyd/Simeth 10 ml PO QDAY 01/16/22 01/16/22 Unknown History [Mylanta Maximum Strength Pkt] Melatonin [Melatonin 5MG CAP] 5 mg PO QHS 01/16/22 01/16/22 Unknown History Torsemide [Demadex] 100 mg PO QDAY 01/16/22 01/16/22 Unknown History Vit B Comp No.3/Folic/C/Biotin 1 tab PO QDAY 01/16/22 01/16/22 Unknown History [Prisca-Theodore Rx Tablet] megestroL [Megestrol] 40 mg PO QDAY 01/16/22 01/16/22 Unknown History polyethylene glycoL 3350 [Miralax 17 gm PO BID PRN 01/16/22 01/16/22 Unknown History 3350] Amiodarone [Cordarone 200 MG TAB] 200 mg PO QDAY #30 tab 01/19/22 Unknown Rx Pantoprazole [Protonix TAB] 40 mg PO BID #60 tablet 01/19/22 Unknown Rx amLODIPine 10 mg PO QDAY #30 tab 01/19/22 Unknown Rx carvediloL [Coreg] 6.25 mg PO BID #60 tab 01/19/22 Unknown Rx Active Meds: Active Medications Acetaminophen (Acetaminophen 325 Mg Tab) 650 mg PO Q4H PRN PRN Reason: Pain MILD(1-3)/Fever >100.5/ESQUIVEL Last Admin: 01/18/22 23:35 Dose: 650 mg Dextrose (Dextrose 50% In Water (25gm) 50 Ml Syringe) 50 ml IV Q30MIN PRN; Protocol PRN Reason: Hypoglycemia Last Admin: 01/17/22 18:04 Dose: 10 ml Hydralazine HCl (Hydralazine 20 Mg/1 Ml Inj) 10 mg IV Q4HR PRN PRN Reason: Hypertension Sodium Chloride (Nacl 0.9%) 100 mls @ 999 mls/hr IV JUANITO PRN PRN Reason: Hypotension Insulin Human Lispro (Insulin Lispro 100 Unit/Ml) 0 unit SUB-Q ACHS CA; Protocol Last Admin: 01/18/22 22:00 Dose: Not Given Ondansetron HCl (Ondansetron 4 Mg/2 Ml Inj) 4 mg IV Q8H PRN PRN Reason: Nausea And Vomiting Pantoprazole Sodium (Pantoprazole 40 Mg Inj) 40 mg IV BID [facility] Last Admin: 01/18/22 22:45 Dose: 40 mg Sodium Chloride (Sodium Chloride 0.9% 10 Ml Flush Syringe) 10 ml IV BID [facility] Last Admin: 01/18/22 22:46 Dose: 10 ml Sodium Chloride (Sodium Chloride 0.9% 10 Ml Flush Syringe) 10 ml IV PRN PRN PRN Reason: LINE FLUSH Exam - Vital Signs Vital signs: Vital Signs Temp Pulse Resp BP Pulse Ox 98.4 F 90 14 124/80 96 01/11/22 09:17 01/11/22 09:17 01/11/22 09:17 01/11/22 09:17 01/11/22 09:17 Results - Lab Results 01/19/22 04:21 01/19/22 04:21 Most recent lab results Calcium 7.5 mg/dL (8.4-10.2) L 01/19/22 04:21 Phosphorus 6.80 mg/dL (2.5-4.5) H 01/16/22 04:07 Magnesium 1.90 mg/dL (1.7-2.3) 01/16/22 04:07 Assessment and Plan 1. ESRD: Patient is on maintenance hemodialysis, MWF schedule. Hemodialysis: UF today. 2. FEN: Volume overload, UF with HD as tolerated. Additional UF session today. Hyperkalemia, improved with HD. Monitor lytes and volume status. 3. 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 Collaterals presumably chronic, gallstones. S/p EGD and Colonoscopy. Suspect diverticular, recurrent episodes requiring several units of blood. Seen by General Surgery. PPI, trend CBC. 4. Acute hypoxic respiratory failure: Supplemental oxygen as needed. Volume control thru HD. Monitor. 5. DM with Hypoglycemia: Monitor. 6. Hypertension: Adjust meds as needed. Volume control. Monitor BP. Subjective: Patient was seen and examined at the bedside. Examination: General appearance: well-developed, well nourished, appears stated age, not in distress HEENT: no icterus Neck: trachea midline Respiratory: rales heard Heart: S1S2, regular, no murmur Abdomen: soft, bowel sounds heard, NT, no palpable mass Integumentary: no obvious rash Neurologic: conversing, able to move extremities Ext: 1 to 2+ edema of all 4 ext, dependent edema noted Hemodialysis access: R IJ tunnel catheter
[2022-01-19] MEDS: INSULIN LISPRO 100 UNIT/ML SUB-Q SCH ×4 (08:06→21:16)
[2022-01-19] MEDS: PANTOPRAZOLE 40 MG INJ IV SCH ×2 (09:24→21:17)
[2022-01-19] MEDS ORDERED: SODIUM CHLORIDE 0.9% 100 ML IV PRN ×2 (11:00→23:03)
--- NOTE | 2022-01-19 11:07 | Discharge Summary ---
Providers - Providers Date of Admission: 01/11/22 15:12 Attending physician: YOEL MARISCAL MD 01/11/22 15:36 Consult to Physician [CONS] Routine Comment: Consulting Provider: DENILSON CUNNINGHAM Physician Instructions: Reason For Exam: Aortic Dissection--old 01/11/22 16:11 Consult to Physician [CONS] Routine Comment: Consulting Provider: NETO CHOW Physician Instructions: Reason For Exam: GI Bleed 01/12/22 13:42 Occupational Therapy Evaluate and Treat [CONS] Stat Comment: Eval and Treat Reason For Exam: Occupational Therapy Physical Therapy Evaluation and Treat [CONS] Stat Comment: Eval and Treat Reason For Exam: Physical Therapy 01/15/22 15:55 Consult to Physician [CONS] Routine Comment: called answ. serv. /esequiel Consulting Provider: ZAIRE MIRAMONTES Physician Instructions: Reason For Exam: Recurrent diverticular bleed, no source identified Primary care physician: KILN STACKER Hospitalization Reason for admission: GI bleed Condition: Stable Hospital course: This is a 62-year-old male with ESRD on HD, HTN, CABG x2, aortic dissection s/p thoracic aortic stent, BPH and DM admitted with GI bleeding ICU course to date: 01/15: Patient was transferred to ICU for closer monitoring yesterday afternoon after second episode of GI bleeding was noted and he had a repeat CTA abdomen/pelvis. Patient's hemoglobin dropped to 5 yesterday and was given 2 units PRBC. GI recommends obtaining another CTA if recurrence of GI bleeding noted. 01/16: Patient will get HD today and possibly 25 DC tomorrow. Added hydralazine as needed for hypertension. Started D10 drip due to persistent hypoglycemia. 01/17: Patient remains stable, no s/s of any active bleeding overnight. H&H is stable. Plan for repeat Colonoscopy today by GI. Continue D10w for hypoglycemia and trend CBC 01/18: s/p repeat colonoscopy, diverticuli noted throughout the colon but no evidence of any active bleeding. No bloody stools reported for over 48hrs, H&H and vital signs are stable. GI and general surgery recommendations noted. If bleeding reoccur patient's only option is a total colectomy since patient is not a candidate for any angiography intervention due to history of aortic dissection. Continue PPI, and continue to trend CBC. Advance diet as tolerated, will D/C D10w gtt if patient tolerates PO intake. Continue BG check ACHS, avoid hypoglycemia. Plan for HD today per Nephro. D/W [facility] patient is stable for transfer to Telemetry. 01/19: Patient seen and examined clinically stable, discussed with surgery and also with all the specialties involved in the case.reviewed GI and Surgery notes. Patient not a candidate for any IR procedure. Surgery only option and awaiting next bleed if it happens. Even with bleeding in the past, hemodynamically patient has been stable. Also discussed with the sister and explained the clinical condition of findings she verbalized understanding plan at this time is for discharge of patient back to the facility Assessment and Plan GI: LGIB, moderate protein calorie malnutrition/ Diverticulosis -GI, IR, surgery consulted, appreciate recommendations -Abdomen pelvis CT showed previous placement of thoracic aortic stent graft, 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 Collaterals presumably chronic, gallstones -S/p EGD and 01/12 which showed normal esophagus, mild erythematous mucosa in the antrum of of the body, biopsies obtained, normal duodenum, biopsies obtained and no source of GI bleeding found -S/p colonoscopy on 01/12 due to feeling poor quality however likely diverticular bleed -01/13 CTA abdomen/pelvis showed mild diverticular disease throughout the colon with endoluminal opacification of nearly all of the colon suggesting oral contrast however patient did have a history of oral contrast administration in addition To saturations would include carious excretion of contrast from the gallbladder however this appears out of proportion therefore hemorrhage should be considered, no clear source is identified, redemonstrated vascular disease without change -01/15 CTA abdomen/pelvis previous placement of thoracic aortic stent graft with 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 See report for details -General surgery recommendations noted. -If bleeding reoccur patient's only option is a total colectomy since patient is not a candidate for any angiography intervention due to history of aortic dissection. -Continue PPI, and continue to trend CBC -Advance diet as tolerated : ESRD on HD, h/o BPH -Nephrology consulted, appreciate recommendations -HD per nephrology -Monitor intake and output -Renally dose medications -Avoid nephrotoxic medications -Trend BMP Cardiac: h/o HTN, CABG x2, thoracic aortic aneurysm s/p repair -Hydralazine prn -Blood pressure monitoring per protocol Respiratory: Acute hypoxic respiratory failure -Supplemental oxygen as needed -SPO2 monitor per protocol -Pulmonary hygiene Endo: Hypoglycemia, h/o DM -probably due to NPO status -On D10w gtt -Plan to advance diet as tolerated -will D/C D10w gtt if patient tolerates PO intake. -Continue BG check ACHS -avoid hypoglycemia -Continue hypoglycemic protocol Heme: Acute on chronic anemia of chronic disease, GIB -Presented with GI bleed -Multiple episodes of GI bleed noted throughout stay -S/p 5 unit prbc -h/h q 8 hours -Trend CBC -Transfuse hemoglobin less than 7 Disposition: 03 [facility] Final Discharge Diagnosis (Prints w/discharge instructions): Acute on chronic anemia of chronic disease, GIB. Diverticulosis. ESRD on HD, h/o BPH. HTN, CABG x2, thoracic aortic aneurysm s/p repair. Acute hypoxic respiratory failure. Hypoglycemia, h/o DM Time spent for discharge: 35 mins Core Measure Documentation - Palliative Care Palliative Care/ Comfort Measures: Not Applicable - Core Measures Any of the following diagnoses?: none Exam - Physical Exam Narrative exam: General appearance: Present: no acute distress, well-nourished, sitting - EENT Eyes: Present: PERRL ENT: hearing intact - Neck Neck: Present: normal ROM - Respiratory Respiratory effort: normal Respiratory: left: wheezing, bilateral: diminished - Cardiovascular Rhythm: regular Heart Sounds: Present: S1 & S2 - Extremities Extremities: no ischemia, pulses intact, pulses symmetrical Extremity abnormal: edema - Peripheral Assessment Generalized Edema Type: Non-pitting Edema Degree: 2+ Capillary Refill: < 3 seconds Skin Temperature: Warm Peripheral Pulses: within normal limits - Abdominal General gastrointestinal: soft, non-distended, normal bowel sounds - Integumentary Integumentary: Present: clear, warm, dry - Psychiatric Psychiatric: appropriate mood/affect, cooperative - Neurologic Neurologic: CNII-XII intact, moves all extremities - Allied Health Allied health notes reviewed: nursing, case management - Constitutional Vitals: Temp Pulse Resp BP Pulse Ox 98.9 F 100 H 18 148/77 98 01/19/22 08:48 01/19/22 08:48 01/19/22 08:48 01/19/22 08:48 01/19/22 09:00 Plan Activity: advance as tolerated, fall precautions Diet: renal Special Instructions: record daily weights, record daily BP diary, record blood sugar diary, physical therapy, occupational therapy Follow up with: PRIMARY CARE, [Primary Care Provider] - 7 Days SHAE LUI MD [Staff Physician] - 7 Days ZAIRE MIRAMONTES MD [Staff Physician] - 7 Days KRISTINE MERINO MD [Staff Physician] - 7 Days Forms: Accompanied Note Prescriptions: amLODIPine 10 mg PO QDAY #30 tab Amiodarone [Cordarone 200 MG TAB] 200 mg PO QDAY #30 tab carvediloL [Coreg] 6.25 mg PO BID #60 tab Pantoprazole [Protonix TAB] 40 mg PO BID #60 tablet
[2022-01-19] MEDS ORDERED: EPOETIN ALFA-EPBX 20,000 UNIT/1 ML VIAL SUB-Q PRN (23:03)
[2022-01-20] MEDS: INSULIN LISPRO 100 UNIT/ML SUB-Q SCH ×4 (08:16→21:56)
--- NOTE | 2022-01-20 08:32 | Progress Note ---
Assessment and Plan 1. ESRD: Patient is on maintenance hemodialysis, MWF schedule. Hemodialysis: 01/13, 01/16, 01/18, 01/20, 01/21(UF only) HS today. 2. FEN: Volume overload, UF with HD as tolerated. Additional UF session yesterday. Hyperkalemia, improved with HD. Monitor lytes and volume status. 3. 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 Collaterals presumably chronic, gallstones. S/p EGD and Colonoscopy. Suspect diverticular, recurrent episodes requiring several units of blood. Seen by General Surgery. PPI, trend CBC. 4. Acute hypoxic respiratory failure: Supplemental oxygen as needed. Volume control thru HD. Monitor. 5. DM with Hypoglycemia: Monitor. 6. Hypertension: Adjust meds as needed. Volume control. Monitor BP. Subjective: Patient was seen and examined at the bedside. Examination: General appearance: well-developed, well nourished, appears stated age, not in distress HEENT: no icterus Neck: trachea midline Respiratory: rales heard Heart: S1S2, regular, no murmur Abdomen: soft, bowel sounds heard, NT, no palpable mass Integumentary: no obvious rash Neurologic: conversing, able to move extremities Ext: 1+ edema of all 4 ext, dependent edema noted Hemodialysis access: R IJ tunnel catheter Subjective Date of service: 01/20/22 Principal diagnosis: End-stage renal disease, gastrointestinal bleeding Objective - Vital Signs Vital signs: Vital Signs - 12hr 01/19/22 01/19/22 01/19/22 22:00 22:25 23:39 Temperature 98.4 F Pulse Rate 84 Respiratory 17 Rate Blood Pressure 172/85 O2 Sat by Pulse 100 98 99 Oximetry 01/20/22 04:14 Temperature 98.6 F Pulse Rate 89 Respiratory 18 Rate Blood Pressure 183/97 O2 Sat by Pulse 100 Oximetry - Lab 01/20/22 23:06 01/19/22 04:21 Most recent lab results Calcium 7.5 mg/dL (8.4-10.2) L 01/19/22 04:21 Phosphorus 6.80 mg/dL (2.5-4.5) H 01/16/22 04:07 Magnesium 1.90 mg/dL (1.7-2.3) 01/16/22 04:07 Medications & Allergies - Medications Allergies/Adverse Reactions: Allergies No Known Allergies Allergy (Verified 01/11/22 09:20) Home Medications: Home Medications Medication Instructions Recorded Confirmed Last Taken Type Tamsulosin [Flomax] 0.4 mg PO QDAY #30 cap 01/07/20 01/16/22 Unknown Rx Bacitracin Zinc Oint [Antibiotic 1 applicatio TP BID #1 tube 03/21/20 01/16/22 Unknown Rx Oint] Benzonatate [Tessalon Perles] 100 mg PO Q8HR PRN #20 capsule 03/21/20 01/16/22 Unknown Rx Acetaminophen [Tylenol] 325 mg PO Q6H PRN 01/16/22 01/16/22 Unknown History Atorvastatin [Lipitor] 80 mg PO QHS 01/16/22 01/16/22 Unknown History Calcium Acetate [Phoslo] 667 mg PO QDAY 01/16/22 01/16/22 Unknown History Ergocalciferol (Vitamin D2) 1,250 mcg PO QDAY 01/16/22 01/16/22 Unknown History [Drisdol] Glycerin/Propylene Glycol 30 ml OP QDAY PRN 01/16/22 01/16/22 Unknown History [Artificial Tears Drops] Insulin Lispro [Admelog] See Protocol SQ ACHS 01/16/22 01/16/22 Unknown History Lactobacillus Acidophilus 0.5 mg PO QDAY 01/16/22 01/16/22 Unknown History [Acidophilus Probiotic] Lactulose [Cephulac] 20 gm PO BID PRN 01/16/22 01/16/22 Unknown History Mag Hydrox/Aluminum Hyd/Simeth 10 ml PO QDAY 01/16/22 01/16/22 Unknown History [Mylanta Maximum Strength Pkt] Melatonin [Melatonin 5MG CAP] 5 mg PO QHS 01/16/22 01/16/22 Unknown History Torsemide [Demadex] 100 mg PO QDAY 01/16/22 01/16/22 Unknown History Vit B Comp No.3/Folic/C/Biotin 1 tab PO QDAY 01/16/22 01/16/22 Unknown History [Prisca-Theodore Rx Tablet] megestroL [Megestrol] 40 mg PO QDAY 01/16/22 01/16/22 Unknown History polyethylene glycoL 3350 [Miralax 17 gm PO BID PRN 01/16/22 01/16/22 Unknown History 3350] Amiodarone [Cordarone 200 MG TAB] 200 mg PO QDAY #30 tab 01/19/22 Unknown Rx Pantoprazole [Protonix TAB] 40 mg PO BID #60 tablet 01/19/22 Unknown Rx amLODIPine 10 mg PO QDAY #30 tab 01/19/22 Unknown Rx carvediloL [Coreg] 6.25 mg PO BID #60 tab 01/19/22 Unknown Rx Active Medications: Generic Name Dose Route Start Last Admin Trade Name Freq PRN Reason Stop Dose Admin Acetaminophen 650 mg 01/11/22 16:00 01/18/22 23:35 Acetaminophen 325 Mg Tab PO 650 mg Q4H PRN Administration Pain MILD(1-3)/Fever >100.5/ESQUIVEL Dextrose 50 ml 01/16/22 07:43 01/17/22 18:04 Dextrose 50% In Water (25gm) 50 Ml Syringe IV 10 ml Q30MIN PRN Administration Hypoglycemia Protocol Epoetin Sushil-epbx 20,000 unit 01/19/22 23:03 Epoetin Sushil-Epbx 20,000 Unit/1 Ml Vial SUB-Q JUANITO PRN hemodialysis Hydralazine HCl 10 mg 01/16/22 07:45 Hydralazine 20 Mg/1 Ml Inj IV Q4HR PRN Hypertension Sodium Chloride 100 mls @ 999 mls/hr 01/19/22 23:03 Nacl 0.9% IV JUANITO PRN Hypotension Insulin Human Lispro 0 unit 01/18/22 16:30 01/19/22 21:16 Insulin Lispro 100 Unit/Ml SUB-Q Not Given ACHS CA Protocol Ondansetron HCl 4 mg 01/11/22 15:30 Ondansetron 4 Mg/2 Ml Inj IV Q8H PRN Nausea And Vomiting Pantoprazole Sodium 40 mg 01/20/22 10:00 Pantoprazole 40 Mg Tab PO BID CA Sodium Chloride 10 ml 01/11/22 22:00 01/19/22 21:17 Sodium Chloride 0.9% 10 Ml Flush Syringe IV 10 ml BID CA Administration Sodium Chloride 10 ml 01/11/22 16:00 Sodium Chloride 0.9% 10 Ml Flush Syringe IV PRN PRN LINE FLUSH
[2022-01-20] MEDS: PANTOPRAZOLE 40 MG TAB PO SCH ×2 (09:17→21:57)
[2022-01-20 23:31] LABS: Basophils % (Auto) 0.5 % (0.0-1.8); Eosinophils # (Auto) 0.7 K/mm3 (0.0-0.4); Eosinophils % (Auto) 7.2 % (0.0-4.3); Hematocrit 29.3 % (35.5-45.6); Hemoglobin 9.1 gm/dl (11.8-15.2); Lymphocytes % (Auto) 10.2 % (13.4-35.0); Mean Corpuscular HGB Conc 31 % (32-34); Mean Corpuscular Volume 98 fl (84-94); Monocytes % (Auto) 9.9 % (0.0-7.3); Platelet Count 135 K/mm3 (140-440); Red Cell Distribution Width 18.6 % (13.2-15.2)
[2022-01-21] MEDS: INSULIN LISPRO 100 UNIT/ML SUB-Q SCH ×4 (09:05→21:13)
[2022-01-21] MEDS: PANTOPRAZOLE 40 MG TAB PO SCH ×2 (09:37→21:13)
--- NOTE | 2022-01-21 12:33 | Progress Note ---
Assessment and Plan 1. ESRD: Patient is on maintenance hemodialysis, MWF schedule. Hemodialysis: 01/13, 01/16, 01/18, 01/19(UF only), 01/20. UF today. 2. FEN: Volume overload, UF with HD as tolerated. Additional UF session yesterday. Hyperkalemia, improved with HD. Monitor lytes and volume status. 3. 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 Collaterals presumably chronic, gallstones. S/p EGD and Colonoscopy. Suspect diverticular, recurrent episodes requiring several units of blood. Seen by General Surgery. PPI, trend CBC. 4. Acute hypoxic respiratory failure: Supplemental oxygen as needed. Volume control thru HD. Monitor. 5. DM with Hypoglycemia: Monitor. 6. Hypertension: Adjust meds as needed. Volume control. Monitor BP. Subjective: Patient was seen and examined at the bedside. Examination: General appearance: well-developed, well nourished, appears stated age, not in distress HEENT: no icterus Neck: trachea midline Respiratory: rales heard Heart: S1S2, regular, no murmur Abdomen: soft, bowel sounds heard, NT, no palpable mass Integumentary: no obvious rash Neurologic: conversing, able to move extremities Ext: trace edema of UEs and dependent area Hemodialysis access: R IJ tunnel catheter Subjective Date of service: 01/21/22 Principal diagnosis: End-stage renal disease, gastrointestinal bleeding Objective - Vital Signs Vital signs: Vital Signs - 12hr 01/21/22 01/21/22 01/21/22 04:16 07:56 09:07 Temperature 98.7 F 98.7 F Pulse Rate 99 H 100 H Respiratory 18 18 Rate Blood Pressure 160/87 157/88 O2 Sat by Pulse 99 97 100 Oximetry 01/21/22 01/21/22 01/21/22 09:57 10:00 11:12 Temperature 97.9 F Pulse Rate 91 H 98 H Respiratory 18 Rate Blood Pressure 146/73 O2 Sat by Pulse 97 98 Oximetry - Lab 01/20/22 23:06 01/19/22 04:21 Most recent lab results Calcium 7.5 mg/dL (8.4-10.2) L 01/19/22 04:21 Phosphorus 6.80 mg/dL (2.5-4.5) H 01/16/22 04:07 Magnesium 1.90 mg/dL (1.7-2.3) 01/16/22 04:07 Medications & Allergies - Medications Allergies/Adverse Reactions: Allergies No Known Allergies Allergy (Verified 01/11/22 09:20) Home Medications: Home Medications Medication Instructions Recorded Confirmed Last Taken Type Tamsulosin [Flomax] 0.4 mg PO QDAY #30 cap 01/07/20 01/16/22 Unknown Rx Bacitracin Zinc Oint [Antibiotic 1 applicatio TP BID #1 tube 03/21/20 01/16/22 Unknown Rx Oint] Benzonatate [Tessalon Perles] 100 mg PO Q8HR PRN #20 capsule 03/21/20 01/16/22 Unknown Rx Acetaminophen [Tylenol] 325 mg PO Q6H PRN 01/16/22 01/16/22 Unknown History Atorvastatin [Lipitor] 80 mg PO QHS 01/16/22 01/16/22 Unknown History Calcium Acetate [Phoslo] 667 mg PO QDAY 01/16/22 01/16/22 Unknown History Ergocalciferol (Vitamin D2) 1,250 mcg PO QDAY 01/16/22 01/16/22 Unknown History [Drisdol] Glycerin/Propylene Glycol 30 ml OP QDAY PRN 01/16/22 01/16/22 Unknown History [Artificial Tears Drops] Insulin Lispro [Admelog] See Protocol SQ ACHS 01/16/22 01/16/22 Unknown History Lactobacillus Acidophilus 0.5 mg PO QDAY 01/16/22 01/16/22 Unknown History [Acidophilus Probiotic] Lactulose [Cephulac] 20 gm PO BID PRN 01/16/22 01/16/22 Unknown History Mag Hydrox/Aluminum Hyd/Simeth 10 ml PO QDAY 01/16/22 01/16/22 Unknown History [Mylanta Maximum Strength Pkt] Melatonin [Melatonin 5MG CAP] 5 mg PO QHS 01/16/22 01/16/22 Unknown History Torsemide [Demadex] 100 mg PO QDAY 01/16/22 01/16/22 Unknown History Vit B Comp No.3/Folic/C/Biotin 1 tab PO QDAY 01/16/22 01/16/22 Unknown History [Prisca-Theodore Rx Tablet] megestroL [Megestrol] 40 mg PO QDAY 01/16/22 01/16/22 Unknown History polyethylene glycoL 3350 [Miralax 17 gm PO BID PRN 01/16/22 01/16/22 Unknown History 3350] Amiodarone [Cordarone 200 MG TAB] 200 mg PO QDAY #30 tab 01/19/22 Unknown Rx Pantoprazole [Protonix TAB] 40 mg PO BID #60 tablet 01/19/22 Unknown Rx amLODIPine 10 mg PO QDAY #30 tab 01/19/22 Unknown Rx carvediloL [Coreg] 6.25 mg PO BID #60 tab 01/19/22 Unknown Rx Active Medications: Generic Name Dose Route Start Last Admin Trade Name Freq PRN Reason Stop Dose Admin Acetaminophen 650 mg 01/11/22 16:00 01/18/22 23:35 Acetaminophen 325 Mg Tab PO 650 mg Q4H PRN Administration Pain MILD(1-3)/Fever >100.5/ESQUIVEL Dextrose 50 ml 01/16/22 07:43 01/17/22 18:04 Dextrose 50% In Water (25gm) 50 Ml Syringe IV 10 ml Q30MIN PRN Administration Hypoglycemia Protocol Epoetin Sushil-epbx 20,000 unit 01/19/22 23:03 Epoetin Sushil-Epbx 20,000 Unit/1 Ml Vial SUB-Q JUANITO PRN hemodialysis Hydralazine HCl 10 mg 01/16/22 07:45 01/20/22 21:57 Hydralazine 20 Mg/1 Ml Inj IV 10 mg Q4HR PRN Administration Hypertension Sodium Chloride 100 mls @ 999 mls/hr 01/19/22 23:03 Nacl 0.9% IV JUANITO PRN Hypotension Insulin Human Lispro 0 unit 01/18/22 16:30 01/21/22 12:19 Insulin Lispro 100 Unit/Ml SUB-Q Not Given ACHS CA Protocol Ondansetron HCl 4 mg 01/11/22 15:30 Ondansetron 4 Mg/2 Ml Inj IV Q8H PRN Nausea And Vomiting Pantoprazole Sodium 40 mg 01/20/22 10:00 01/21/22 09:37 Pantoprazole 40 Mg Tab PO 40 mg BID CA Administration Sodium Chloride 10 ml 01/11/22 22:00 01/21/22 09:37 Sodium Chloride 0.9% 10 Ml Flush Syringe IV 10 ml BID CA Administration Sodium Chloride 10 ml 01/11/22 16:00 Sodium Chloride 0.9% 10 Ml Flush Syringe IV PRN PRN LINE FLUSH
--- NOTE | 2022-01-21 13:13 | Progress Note ---
Assessment and Plan Assessment and plan: This is a 62-year-old male with ESRD on HD, HTN, CABG x2, aortic dissection s/p thoracic aortic stent, BPH and DM admitted with GI bleeding ICU course to date: 01/15: Patient was transferred to ICU for closer monitoring yesterday afternoon after second episode of GI bleeding was noted and he had a repeat CTA abdomen/pelvis. Patient's hemoglobin dropped to 5 yesterday and was given 2 units PRBC. GI recommends obtaining another CTA if recurrence of GI bleeding noted. 01/16: Patient will get HD today and possibly 25 DC tomorrow. Added hydralazine as needed for hypertension. Started D10 drip due to persistent hypoglycemia. 01/17: Patient remains stable, no s/s of any active bleeding overnight. H&H is stable. Plan for repeat Colonoscopy today by GI. Continue D10w for hypoglycemia and trend CBC 01/18: s/p repeat colonoscopy, diverticuli noted throughout the colon but no evidence of any active bleeding. No bloody stools reported for over 48hrs, H&H and vital signs are stable. GI and general surgery recommendations noted. If bleeding reoccur patient's only option is a total colectomy since patient is not a candidate for any angiography intervention due to history of aortic dissection. Continue PPI, and continue to trend CBC. Advance diet as tolerated, will D/C D10w gtt if patient tolerates PO intake. Continue BG check ACHS, avoid hypoglycemia. Plan for HD today per Nephro. D/W CCM patient is stable for transfer to Telemetry. 01/19: Patient seen and examined clinically stable, discussed with surgery and also with all the specialties involved in the case.reviewed GI and Surgery notes. Patient not a candidate for any IR procedure. Surgery only option and a waiting next bleed if it happens. Even with bleeding in the past, hemodynamically patient has been stable. Also discussed with the sister and explained the clinical condition of findings she verbalized understanding plan at this time is for discharge of patient back to the facility 01/20: Late entry, awaiting discharge to facility. Assessment and Plan GI: LGIB, moderate protein calorie malnutrition/ Diverticulosis -GI, IR, surgery consulted, appreciate recommendations -Abdomen pelvis CT showed previous placement of thoracic aortic stent graft, 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 Collaterals presumably chronic, gallstones -S/p EGD and 01/12 which showed normal esophagus, mild erythematous mucosa in the antrum of of the body, biopsies obtained, normal duodenum, biopsies obtained and no source of GI bleeding found -S/p colonoscopy on 01/12 due to feeling poor quality however likely diverticular bleed -01/13 CTA abdomen/pelvis showed mild diverticular disease throughout the colon with endoluminal opacification of nearly all of the colon suggesting oral contrast however patient did have a history of oral contrast administration in a ddition To saturations would include carious excretion of contrast from the gallbladder however this appears out of proportion therefore hemorrhage should be considered, no clear source is identified, redemonstrated vascular disease without change -01/15 CTA abdomen/pelvis previous placement of thoracic aortic stent graft with 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 See report for details -General surgery recommendations noted. -If bleeding reoccur patient's only option is a total colectomy since patient is not a candidate for any angiography intervention due to history of aortic dissection. -Continue PPI, and continue to trend CBC -Advance diet as tolerated : ESRD on HD, h/o BPH -Nephrology consulted, appreciate recommendations -HD per nephrology -Monitor intake and output -Renally dose medications -Avoid nephrotoxic medications -Trend BMP Cardiac: h/o HTN, CABG x2, thoracic aortic aneurysm s/p repair -Hydralazine prn -Blood pressure monitoring per protocol Respiratory: Acute hypoxic respiratory failure -Supplemental oxygen as needed -SPO2 monitor per protocol -Pulmonary hygiene Endo: Hypoglycemia, h/o DM -probably due to NPO status -On D10w gtt -Plan to advance diet as tolerated -will D/C D10w gtt if patient tolerates PO intake. -Continue BG check ACHS -avoid hypoglycemia -Continue hypoglycemic protocol Heme: Acute on chronic anemia of chronic disease, GIB -Presented with GI bleed -Multiple episodes of GI bleed noted throughout stay -S/p 5 unit prbc -h/h q 8 hours -Trend CBC -Transfuse hemoglobin less than 7 Disposition: [facility] Final Discharge Diagnosis (Prints w/discharge instructions): Acute on chronic anemia of chronic disease, GIB. Diverticulosis. ESRD on HD, h/o BPH. HTN, CABG x2, thoracic aortic aneurysm s/p repair. Acute hypoxic respiratory failur e. Hypoglycemia, h/o DM History Interval history: Patient seen and examined, no new complaints, no fever, no bleeding Hospitalist Physical - Physical exam Narrative exam: General appearance: Present: no acute distress, well-nourished, - EENT Eyes: Present: PERRL ENT: hearing intact - Neck Neck: Present: normal ROM - Respiratory Respiratory effort: normal Respiratory: left: wheezing, bilateral: diminished - Cardiovascular Rhythm: regular Heart Sounds: Present: S1 & S2 - Extremities Extremities: no ischemia, pulses intact, pulses symmetrical Extremity abnormal: edema - Peripheral Assessment Generalized Edema Type: Non-pitting Edema Degree: 2+ Capillary Refill: < 3 seconds Skin Temperature: Warm Peripheral Pulses: within normal limits - Abdominal General gastrointestinal: soft, non-distended, normal bowel sounds - Integumentary Integumentary: Present: clear, warm, dry - Psychiatric Psychiatric: appropriate mood/affect, cooperative - Neurologic Neurologic: CNII-XII intact, moves all extremities - Allied Health Allied health notes reviewed: nursing, case management - Constitutional Vitals: Temp Pulse Resp BP Pulse Ox 97.9 F 98 H 18 146/73 98 01/21/22 11:12 01/21/22 11:12 01/21/22 11:12 01/21/22 11:12 01/21/22 11:12 General appearance: Present: no acute distress, well-nourished, obese Results - Labs CBC & Chem 7: 01/20/22 23:06 01/19/22 04:21 Labs: Laboratory Last Values WBC 10.2 K/mm3 (4.5-11.0) 01/20/22 23:06 RBC 3.00 M/mm3 (3.65-5.03) L 01/20/22 23:06 Hgb 9.1 gm/dl (11.8-15.2) L 01/20/22 23:06 Hct 29.3 % (35.5-45.6) L 01/20/22 23:06 MCV 98 fl (84-94) H 01/20/22 23:06 MCH 30 pg (28-32) 01/20/22 23:06 MCHC 31 % (32-34) L 01/20/22 23:06 RDW 18.6 % (13.2-15.2) H 01/20/22 23:06 Plt Count 135 K/mm3 (140-440) L 01/20/22 23:06 Lymph % (Auto) 10.2 % (13.4-35.0) L 01/20/22 23:06 [place] % (Auto) 9.9 % (0.0-7.3) H 01/20/22 23:06 Eos % (Auto) 7.2 % (0.0-4.3) H 01/20/22 23:06 Baso % (Auto) 0.5 % (0.0-1.8) 01/20/22 23:06 Lymph # (Auto) 1.0 K/mm3 (1.2-5.4) L 01/20/22 23:06 [place] # (Auto) 1.0 K/mm3 (0.0-0.8) H 01/20/22 23:06 Eos # (Auto) 0.7 K/mm3 (0.0-0.4) H 01/20/22 23:06 Baso # (Auto) 0.0 K/mm3 (0.0-0.1) 01/20/22 23:06 Add Manual Diff Complete 01/11/22 13:02 Total Counted 100 01/11/22 13:02 Seg Neutrophils % 72.2 % (40.0-70.0) H 01/20/22 23:06 Seg Neuts % (Manual) 76.0 % (40.0-70.0) H 01/11/22 13:02 Band Neutrophils % 1.0 % 01/11/22 13:02 Lymphocytes % (Manual) 7.0 % (13.4-35.0) L 01/11/22 13:02 Reactive Lymphs % (Man) 0 % 01/11/22 13:02 Monocytes % (Manual) 5.0 % (0.0-7.3) 01/11/22 13:02 Eosinophils % (Manual) 11.0 % (0.0-4.3) H 01/11/22 13:02 Basophils % (Manual) 0 % (0.0-1.8) 01/11/22 13:02 Metamyelocytes % 0 % 01/11/22 13:02 Myelocytes % 0 % 01/11/22 13:02 Promyelocytes % 0 % 01/11/22 13:02 Blast Cells % 0 % 01/11/22 13:02 Nucleated RBC % Not Reportable 01/11/22 13:02 Seg Neutrophils # 7.3 K/mm3 (1.8-7.7) 01/20/22 23:06 Seg Neutrophils # Man 5.1 K/mm3 (1.8-7.7) 01/11/22 13:02 Band Neutrophils # 0.1 K/mm3 01/11/22 13:02 Lymphocytes # (Manual) 0.5 K/mm3 (1.2-5.4) L 01/11/22 13:02 Abs React Lymphs (Man) 0.0 K/mm3 01/11/22 13:02 Monocytes # (Manual) 0.3 K/mm3 (0.0-0.8) 01/11/22 13:02 Eosinophils # (Manual) 0.7 K/mm3 (0.0-0.4) H 01/11/22 13:02 Basophils # (Manual) 0.0 K/mm3 (0.0-0.1) 01/11/22 13:02 Metamyelocytes # 0.0 K/mm3 01/11/22 13:02 Myelocytes # 0.0 K/mm3 01/11/22 13:02 Promyelocytes # 0.0 K/mm3 01/11/22 13:02 Blast Cells # 0.0 K/mm3 01/11/22 13:02 WBC Morphology Not Reportable 01/11/22 13:02 Hypersegmented Neuts Not Reportable 01/11/22 13:02 Hyposegmented Neuts Not Reportable 01/11/22 13:02 Hypogranular Neuts Not Reportable 01/11/22 13:02 Smudge Cells Not Reportable 01/11/22 13:02 Toxic Granulation Not Reportable 01/11/22 13:02 Toxic Vacuolation Not Reportable 01/11/22 13:02 Dohle Bodies Not Reportable 01/11/22 13:02 Pelger-Huet Anomaly Not Reportable 01/11/22 13:02 Heri Rods Not Reportable 01/11/22 13:02 Platelet Estimate Consistent w auto 01/11/22 13:02 Clumped Platelets Not Reportable 01/11/22 13:02 Plt Clumps, EDTA Not Reportable 01/11/22 13:02 Large Platelets Not Reportable 01/11/22 13:02 Giant Platelets Not Reportable 01/11/22 13:02 Platelet Satelliting Not Reportable 01/11/22 13:02 Plt Morphology Comment Not Reportable 01/11/22 13:02 RBC Morphology Not Reportable 01/11/22 13:02 Dimorphic RBCs Not Reportable 01/11/22 13:02 Polychromasia Not Reportable 01/11/22 13:02 Hypochromasia 2+ 01/11/22 13:02 Poikilocytosis Not Reportable 01/11/22 13:02 Anisocytosis Not Reportable 01/11/22 13:02 Microcytosis Not Reportable 01/11/22 13:02 Macrocytosis 1+ 01/11/22 13:02 Spherocytes Not Reportable 01/11/22 13:02 Pappenheimer Bodies Not Reportable 01/11/22 13:02 Sickle Cells Not Reportable 01/11/22 13:02 Target Cells Not Reportable 01/11/22 13:02 Tear Drop Cells Not Reportable 01/11/22 13:02 Ovalocytes Not Reportable 01/11/22 13:02 Helmet Cells Not Reportable 01/11/22 13:02 P[place]ps-[place]ff[place] Bodies Not Reportable 01/11/22 13:02 [place] Rings Not Reportable 01/11/22 13:02 Arianna Cells Not Reportable 01/11/22 13:02 Bite Cells Not Reportable 01/11/22 13:02 Crenated Cell Not Reportable 01/11/22 13:02 Elliptocytes Not Reportable 01/11/22 13:02 Acanthocytes (Spur) Not Reportable 01/11/22 13:02 Rouleaux Not Reportable 01/11/22 13:02 Hemoglobin C Crystals Not Reportable 01/11/22 13:02 Schistocytes Not Reportable 01/11/22 13:02 Malaria parasites Not Reportable 01/11/22 13:02 Jose Anotnio Bodies Not Reportable 01/11/22 13:02 Hem Pathologist Commnt No 01/11/22 13:02 PT 15.8 Sec. (12.2-14.9) H 01/11/22 09:58 INR 1.13 (0.87-1.13) 01/11/22 09:58 Sodium 142 mmol/L (137-145) 01/19/22 04:21 Potassium 3.6 mmol/L (3.6-5.0) 01/19/22 04:21 Chloride 103.3 mmol/L (98-107) 01/19/22 04:21 Carbon Dioxide 30 mmol/L (22-30) 01/19/22 04:21 Anion Gap 12 mmol/L 01/19/22 04:21 BUN 13 mg/dL (9-20) 01/19/22 04:21 Creatinine 3.4 mg/dL (0.8-1.3) H 01/19/22 04:21 Estimated GFR 22 ml/min 01/19/22 04:21 BUN/Creatinine Ratio 4 % 01/19/22 04:21 Glucose 77 mg/dL (75-100) 01/19/22 04:21 POC Glucose 77 mg/dL (70-105) 01/20/22 21:44 Calcium 7.5 mg/dL (8.4-10.2) L 01/19/22 04:21 Phosphorus 6.80 mg/dL (2.5-4.5) H 01/16/22 04:07 Magnesium 1.90 mg/dL (1.7-2.3) 01/16/22 04:07 Total Bilirubin 0.30 mg/dL (0.1-1.2) 01/18/22 04:32 AST 15 units/L (5-40) 01/18/22 04:32 ALT 13 units/L (7-56) 01/18/22 04:32 Alkaline Phosphatase 53 units/L (35-129) 01/18/22 04:32 Total Protein 5.3 g/dL (6.3-8.2) L 01/18/22 04:32 Albumin 3.0 g/dL (3.9-5) L 01/18/22 04:32 Albumin/Globulin Ratio 1.3 % 01/18/22 04:32 Lipase 19 units/L (13-60) 01/11/22 09:58 SARS-CoV-2 (PCR) Negative (Negative) 01/19/22 14:45 Blood Type O POSITIVE 01/13/22 05:45 Antibody Screen Negative 01/13/22 05:45 Crossmatch See Detail 01/13/22 05:45 Breaux/IV: Voiding Method Incontinent Active Medications - Current Medications Current Medications: Generic Name Dose Route Start Last Admin Trade Name Freq PRN Reason Stop Dose Admin Acetaminophen 650 mg 01/11/22 16:00 01/18/22 23:35 Acetaminophen 325 Mg Tab PO 650 mg Q4H PRN Administration Pain MILD(1-3)/Fever >100.5/ESQUIVEL Dextrose 50 ml 01/16/22 07:43 01/17/22 18:04 Dextrose 50% In Water (25gm) 50 Ml Syringe IV 10 ml Q30MIN PRN Administration Hypoglycemia Protocol Epoetin Sushil-epbx 20,000 unit 01/19/22 23:03 Epoetin Sushil-Epbx 20,000 Unit/1 Ml Vial SUB-Q JUANITO PRN hemodialysis Hydralazine HCl 10 mg 01/16/22 07:45 01/20/22 21:57 Hydralazine 20 Mg/1 Ml Inj IV 10 mg Q4HR PRN Administration Hypertension Sodium Chloride 100 mls @ 999 mls/hr 01/19/22 23:03 Nacl 0.9% IV JUANITO PRN Hypotension Insulin Human Lispro 0 unit 01/18/22 16:30 01/21/22 12:19 Insulin Lispro 100 Unit/Ml SUB-Q Not Given ACHS CA Protocol Ondansetron HCl 4 mg 01/11/22 15:30 Ondansetron 4 Mg/2 Ml Inj IV Q8H PRN Nausea And Vomiting Pantoprazole Sodium 40 mg 01/20/22 10:00 01/21/22 09:37 Pantoprazole 40 Mg Tab PO 40 mg BID CA Administration Sodium Chloride 10 ml 01/11/22 22:00 01/21/22 09:37 Sodium Chloride 0.9% 10 Ml Flush Syringe IV 10 ml BID CA Administration Sodium Chloride 10 ml 01/11/22 16:00 Sodium Chloride 0.9% 10 Ml Flush Syringe IV PRN PRN LINE FLUSH Nutrition/Malnutrition Assess - Dietary Evaluation Nutrition/Malnutrition Findings: Nutrition Notes Start: 01/12/22 15:00 Freq: Status: Active Protocol: Document 01/19/22 12:34 YNES (Rec: 01/19/22 12:43 YNES [id number]) Nutrition Notes Initial or Follow up Reassessment Current Diagnosis CKD (stage V CKD),Coronary Artery Disease,Diabetes, Hypertension Other Pertinent Diagnosis ESRD+HD, Anemia, s/p GI Bleed, Diverticulosis. Current Diet GI Soft Diet (since D 01/18). Labs/Tests 01/19: Crea 3.4, Ca 7.5. Pertinent Medications 01/19: Nutritionally uremarkable. Height 5 ft 8 in Weight 61.6 kg [place] Body Weight (kg) 70.00 BMI 20.6 Weight change and time frame 7.169 Kg body weight gain reported in 1 week. Weight Status Appropriate Subjective/Other Information RD consult for routine F/U on dietary advancement. Diet advanced to PO, No reports on Pt's PO intake of meals at the time, will assess at F/U. Pt is on Nasal Cannula, O2 saturation @ 98%, according to Physical Assessment History notes. Pt is incontinent, according to Physical Assessment History notes. Pt presents caries and has missing teeth, according to Physical Assessment History notes. Colonoscopy on 01/17 found diverticuli throughout the colon, but no evidence of active bleeding, according to Progress notes. Pt is medically stable and redy for discharge to SNF, according to Progress notes. Percent of energy/protein needs met: Prescribed GI Soft Diet provides for energy/protein needs (2,000 Kcal/82 g) during LOS. Burn Absent Trauma Absent GI Symptoms Other Food Allergy No Skin Integrity/Comment Unspecified area of concern. Minimum of two criteria No Fluid Accumulation N/A Reduced Taxonomist Strength N/A (non-severe) Protein-Calorie Malnutrition N\A #2 Nutrition Diagnosis Altered GI function Comments: Colonoscopy on 01/17 found diverticuli throughout the colon, but no evidence of active bleeding, according to Progress notes. Diagnosis Progress(for reassessment Improved documentation) #1 Nutrition Diagnosis Underweight Diagnosis Progress(for reassessment Continues documentation) Is patient on ventilator? No Is Patient Ambulatory and/or Out of Bed No REE-([facility]-confined to bed) 1673.808 Kcal/Kg value to use for calculation 30 Approximate Energy Requirements Using 1848 kcal/Kg Calculation Used for Recommendations Kcal/kg Additional Notes Protein: >1.2 g/Kg ABW; >65 g/ day. Fluids: 1 ml/Kcal, or as per MD. Nutrition Intervention Change Diet Order: Continue GI Soft Diet as tolerated. Goal #1 Facilitate PO intake of meals with elemental, textural, or mechanical modification during LOS. Follow-Up By: 01/26/22 Additional Comments Continue monitoring food tolerance, %PO intake of meals , and BM.
--- NOTE | 2022-01-21 13:17 | Progress Note ---
Assessment and Plan Assessment and plan: This is a 62-year-old male with ESRD on HD, HTN, CABG x2, aortic dissection s/p thoracic aortic stent, BPH and DM admitted with GI bleeding ICU course to date: 01/15: Patient was transferred to ICU for closer monitoring yesterday afternoon after second episode of GI bleeding was noted and he had a repeat CTA abdomen/pelvis. Patient's hemoglobin dropped to 5 yesterday and was given 2 units PRBC. GI recommends obtaining another CTA if recurrence of GI bleeding noted. 01/16: Patient will get HD today and possibly 25 DC tomorrow. Added hydralazine as needed for hypertension. Started D10 drip due to persistent hypoglycemia. 01/17: Patient remains stable, no s/s of any active bleeding overnight. H&H is stable. Plan for repeat Colonoscopy today by GI. Continue D10w for hypoglycemia and trend CBC 01/18: s/p repeat colonoscopy, diverticuli noted throughout the colon but no evidence of any active bleeding. No bloody stools reported for over 48hrs, H&H and vital signs are stable. GI and general surgery recommendations noted. If bleeding reoccur patient's only option is a total colectomy since patient is not a candidate for any angiography intervention due to history of aortic dissection. Continue PPI, and continue to trend CBC. Advance diet as tolerated, will D/C D10w gtt if patient tolerates PO intake. Continue BG check ACHS, avoid hypoglycemia. Plan for HD today per Nephro. D/W CCM patient is stable for transfer to Telemetry. 01/19: Patient seen and examined clinically stable, discussed with surgery and also with all the specialties involved in the case.reviewed GI and Surgery notes. Patient not a candidate for any IR procedure. Surgery only option and a waiting next bleed if it happens. Even with bleeding in the past, hemodynamically patient has been stable. Also discussed with the sister and explained the clinical condition of findings she verbalized understanding plan at this time is for discharge of patient back to the facility 01/20: Late entry, awaiting discharge to facility. 01/21: Patient seen and examined, resting comfortable. No new compliant. No new Bleeding reported. H/H stable. Assessment and Plan GI: LGIB, moderate protein calorie malnutrition/ Diverticulosis -GI, IR, surgery consulted, appreciate recommendations -Abdomen pelvis CT showed previous placement of thoracic aortic stent graft, 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 Collaterals presumably chronic, gallstones -S/p EGD and 01/12 which showed normal esophagus, mild erythematous mucosa in the antrum of of the body, biopsies obtained, normal duodenum, biopsies obtained and no source of GI bleeding found -S/p colonoscopy on 01/12 due to feeling poor quality however likely diverticular bleed -01/13 CTA abdomen/pelvis showed mild diverticular disease throughout the colon with endoluminal opacification of nearly all of the colon suggesting oral contrast however patient did have a history of oral contrast administration in addition To saturations would include carious excretion of contrast from the gallbladder however this appears out of proportion therefore hemorrhage should be considered, no clear source is identified, redemonstrated vascular disease without change -01/15 CTA abdomen/pelvis previous placement of thoracic aortic stent graft with 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 See report for details -General surgery recommendations noted. -If bleeding reoccur patient's only option is a total colectomy since patient is not a candidate for any angiography intervention due to history of aortic dissection. -Continue PPI, and continue to trend CBC -Advance diet as tolerated : ESRD on HD, h/o BPH -Nephrology consulted, appreciate recommendations -HD per nephrology -Monitor intake and output -Renally dose medications -Avoid nephrotoxic medications -Trend BMP Cardiac: h/o HTN, CABG x2, thoracic aortic aneurysm s/p repair -Hydralazine prn -Blood pressure monitoring per protocol Respiratory: Acute hypoxic respiratory failure -Supplemental oxygen as needed -SPO2 monitor per protocol -Pulmonary hygiene Endo: Hypoglycemia, h/o DM -probably due to NPO status -On D10w gtt -Plan to advance diet as tolerated -will D/C D10w gtt if patient tolerates PO intake. -Continue BG check ACHS -avoid hypoglycemia -Continue hypoglycemic protocol Heme: Acute on chronic anemia of chronic disease, GIB -Presented with GI bleed -Multiple episodes of GI bleed noted throughout stay -S/p 5 unit prbc -h/h q 8 hours -Trend CBC -Transfuse hemoglobin less than 7 Disposition: [facility] Final Discharge Diagnosis (Prints w/discharge instructions): Acute on chronic anemia of chronic disease, GIB. Diverticulosis. ESRD on HD, h/o BPH. HTN, CABG x2, thoracic aortic aneurysm s/p repair. Acute hypoxic respiratory failure. Hypoglycemia, h/o DM History Interval history: Patient seen and examined, no new complaints, no fever, no bleeding. sitting at bedside Hospitalist Physical - Physical exam Narrative exam: General appearance: Present: no acute distress, well-nourished, - EENT Eyes: Present: PERRL ENT: hearing intact - Neck Neck: Present: normal ROM - Respiratory Respiratory effort: normal Respiratory: left: wheezing, bilateral: diminished - Cardiovascular Rhythm: regular Heart Sounds: Present: S1 & S2 - Extremities Extremities: no ischemia, pulses intact, pulses symmetrical Extremity abnormal: edema - Peripheral Assessment Generalized Edema Type: Non-pitting Edema Degree: 2+ Capillary Refill: < 3 seconds Skin Temperature: Warm Peripheral Pulses: within normal limits - Abdominal General gastrointestinal: soft, non-distended, normal bowel sounds - Integumentary Integumentary: Present: clear, warm, dry - Psychiatric Psychiatric: appropriate mood/affect, cooperative - Neurologic Neurologic: CNII-XII intact, moves all extremities - Allied Health Allied health notes reviewed: nursing, case management - Constitutional Vitals: Temp Pulse Resp BP Pulse Ox 97.9 F 98 H 18 146/73 98 01/21/22 11:12 01/21/22 11:12 01/21/22 11:12 01/21/22 11:12 01/21/22 11:12 General appearance: Present: no acute distress, well-nourished, obese Results - Labs CBC & Chem 7: 01/20/22 23:06 01/19/22 04:21 Labs: Laboratory Last Values WBC 10.2 K/mm3 (4.5-11.0) 01/20/22 23:06 RBC 3.00 M/mm3 (3.65-5.03) L 01/20/22 23:06 Hgb 9.1 gm/dl (11.8-15.2) L 01/20/22 23:06 Hct 29.3 % (35.5-45.6) L 01/20/22 23:06 MCV 98 fl (84-94) H 01/20/22 23:06 MCH 30 pg (28-32) 01/20/22 23:06 MCHC 31 % (32-34) L 01/20/22 23:06 RDW 18.6 % (13.2-15.2) H 01/20/22 23:06 Plt Count 135 K/mm3 (140-440) L 01/20/22 23:06 Lymph % (Auto) 10.2 % (13.4-35.0) L 01/20/22 23:06 [place] % (Auto) 9.9 % (0.0-7.3) H 01/20/22 23:06 Eos % (Auto) 7.2 % (0.0-4.3) H 01/20/22 23:06 Baso % (Auto) 0.5 % (0.0-1.8) 01/20/22 23:06 Lymph # (Auto) 1.0 K/mm3 (1.2-5.4) L 01/20/22 23:06 [place] # (Auto) 1.0 K/mm3 (0.0-0.8) H 01/20/22 23:06 Eos # (Auto) 0.7 K/mm3 (0.0-0.4) H 01/20/22 23:06 Baso # (Auto) 0.0 K/mm3 (0.0-0.1) 01/20/22 23:06 Add Manual Diff Complete 01/11/22 13:02 Total Counted 100 01/11/22 13:02 Seg Neutrophils % 72.2 % (40.0-70.0) H 01/20/22 23:06 Seg Neuts % (Manual) 76.0 % (40.0-70.0) H 01/11/22 13:02 Band Neutrophils % 1.0 % 01/11/22 13:02 Lymphocytes % (Manual) 7.0 % (13.4-35.0) L 01/11/22 13:02 Reactive Lymphs % (Man) 0 % 01/11/22 13:02 Monocytes % (Manual) 5.0 % (0.0-7.3) 01/11/22 13:02 Eosinophils % (Manual) 11.0 % (0.0-4.3) H 01/11/22 13:02 Basophils % (Manual) 0 % (0.0-1.8) 01/11/22 13:02 Metamyelocytes % 0 % 01/11/22 13:02 Myelocytes % 0 % 01/11/22 13:02 Promyelocytes % 0 % 01/11/22 13:02 Blast Cells % 0 % 01/11/22 13:02 Nucleated RBC % Not Reportable 01/11/22 13:02 Seg Neutrophils # 7.3 K/mm3 (1.8-7.7) 01/20/22 23:06 Seg Neutrophils # Man 5.1 K/mm3 (1.8-7.7) 01/11/22 13:02 Band Neutrophils # 0.1 K/mm3 01/11/22 13:02 Lymphocytes # (Manual) 0.5 K/mm3 (1.2-5.4) L 01/11/22 13:02 Abs React Lymphs (Man) 0.0 K/mm3 01/11/22 13:02 Monocytes # (Manual) 0.3 K/mm3 (0.0-0.8) 01/11/22 13:02 Eosinophils # (Manual) 0.7 K/mm3 (0.0-0.4) H 01/11/22 13:02 Basophils # (Manual) 0.0 K/mm3 (0.0-0.1) 01/11/22 13:02 Metamyelocytes # 0.0 K/mm3 01/11/22 13:02 Myelocytes # 0.0 K/mm3 01/11/22 13:02 Promyelocytes # 0.0 K/mm3 01/11/22 13:02 Blast Cells # 0.0 K/mm3 01/11/22 13:02 WBC Morphology Not Reportable 01/11/22 13:02 Hypersegmented Neuts Not Reportable 01/11/22 13:02 Hyposegmented Neuts Not Reportable 01/11/22 13:02 Hypogranular Neuts Not Reportable 01/11/22 13:02 Smudge Cells Not Reportable 01/11/22 13:02 Toxic Granulation Not Reportable 01/11/22 13:02 Toxic Vacuolation Not Reportable 01/11/22 13:02 Dohle Bodies Not Reportable 01/11/22 13:02 Pelger-Huet Anomaly Not Reportable 01/11/22 13:02 Heri Rods Not Reportable 01/11/22 13:02 Platelet Estimate Consistent w auto 01/11/22 13:02 Clumped Platelets Not Reportable 01/11/22 13:02 Plt Clumps, EDTA Not Reportable 01/11/22 13:02 Large Platelets Not Reportable 01/11/22 13:02 Giant Platelets Not Reportable 01/11/22 13:02 Platelet Satelliting Not Reportable 01/11/22 13:02 Plt Morphology Comment Not Reportable 01/11/22 13:02 RBC Morphology Not Reportable 01/11/22 13:02 Dimorphic RBCs Not Reportable 01/11/22 13:02 Polychromasia Not Reportable 01/11/22 13:02 Hypochromasia 2+ 01/11/22 13:02 Poikilocytosis Not Reportable 01/11/22 13:02 Anisocytosis Not Reportable 01/11/22 13:02 Microcytosis Not Reportable 01/11/22 13:02 Macrocytosis 1+ 01/11/22 13:02 Spherocytes Not Reportable 01/11/22 13:02 Pappenheimer Bodies Not Reportable 01/11/22 13:02 Sickle Cells Not Reportable 01/11/22 13:02 Target Cells Not Reportable 01/11/22 13:02 Tear Drop Cells Not Reportable 01/11/22 13:02 Ovalocytes Not Reportable 01/11/22 13:02 Helmet Cells Not Reportable 01/11/22 13:02 [place] Bodies Not Reportable 01/11/22 13:02 [place] Rings Not Reportable 01/11/22 13:02 [place] Cells Not Reportable 01/11/22 13:02 Bite Cells Not Reportable 01/11/22 13:02 Crenated Cell Not Reportable 01/11/22 13:02 Elliptocytes Not Reportable 01/11/22 13:02 Acanthocytes (Spur) Not Reportable 01/11/22 13:02 Rouleaux Not Reportable 01/11/22 13:02 Hemoglobin C Crystals Not Reportable 01/11/22 13:02 Schistocytes Not Reportable 01/11/22 13:02 Malaria parasites Not Reportable 01/11/22 13:02 [place] Bodies Not Reportable 01/11/22 13:02 Hem Pathologist Commnt No 01/11/22 13:02 PT 15.8 Sec. (12.2-14.9) H 01/11/22 09:58 INR 1.13 (0.87-1.13) 01/11/22 09:58 Sodium 142 mmol/L (137-145) 01/19/22 04:21 Potassium 3.6 mmol/L (3.6-5.0) 01/19/22 04:21 Chloride 103.3 mmol/L (98-107) 01/19/22 04:21 Carbon Dioxide 30 mmol/L (22-30) 01/19/22 04:21 Anion Gap 12 mmol/L 01/19/22 04:21 BUN 13 mg/dL (9-20) 01/19/22 04:21 Creatinine 3.4 mg/dL (0.8-1.3) H 01/19/22 04:21 Estimated GFR 22 ml/min 01/19/22 04:21 BUN/Creatinine Ratio 4 % 01/19/22 04:21 Glucose 77 mg/dL (75-100) 01/19/22 04:21 POC Glucose 77 mg/dL (70-105) 01/20/22 21:44 Calcium 7.5 mg/dL (8.4-10.2) L 01/19/22 04:21 Phosphorus 6.80 mg/dL (2.5-4.5) H 01/16/22 04:07 Magnesium 1.90 mg/dL (1.7-2.3) 01/16/22 04:07 Total Bilirubin 0.30 mg/dL (0.1-1.2) 01/18/22 04:32 AST 15 units/L (5-40) 01/18/22 04:32 ALT 13 units/L (7-56) 01/18/22 04:32 Alkaline Phosphatase 53 units/L (35-129) 01/18/22 04:32 Total Protein 5.3 g/dL (6.3-8.2) L 01/18/22 04:32 Albumin 3.0 g/dL (3.9-5) L 01/18/22 04:32 Albumin/Globulin Ratio 1.3 % 01/18/22 04:32 Lipase 19 units/L (13-60) 01/11/22 09:58 SARS-CoV-2 (PCR) Negative (Negative) 01/19/22 14:45 Blood Type O POSITIVE 01/13/22 05:45 Antibody Screen Negative 01/13/22 05:45 Crossmatch See Detail 01/13/22 05:45 Breaux/IV: Voiding Method Incontinent Active Medications - Current Medications Current Medications: Generic Name Dose Route Start Last Admin Trade Name Freq PRN Reason Stop Dose Admin Acetaminophen 650 mg 01/11/22 16:00 01/18/22 23:35 Acetaminophen 325 Mg Tab PO 650 mg Q4H PRN Administration Pain MILD(1-3)/Fever >100.5/ESQUIVEL Dextrose 50 ml 01/16/22 07:43 01/17/22 18:04 Dextrose 50% In Water (25gm) 50 Ml Syringe IV 10 ml Q30MIN PRN Administration Hypoglycemia Protocol Epoetin Sushil-epbx 20,000 unit 01/19/22 23:03 Epoetin Sushil-Epbx 20,000 Unit/1 Ml Vial SUB-Q JUANITO PRN hemodialysis Hydralazine HCl 10 mg 01/16/22 07:45 01/20/22 21:57 Hydralazine 20 Mg/1 Ml Inj IV 10 mg Q4HR PRN Administration Hypertension Sodium Chloride 100 mls @ 999 mls/hr 01/19/22 23:03 Nacl 0.9% IV JUANITO PRN Hypotension Insulin Human Lispro 0 unit 01/18/22 16:30 01/21/22 12:19 Insulin Lispro 100 Unit/Ml SUB-Q Not Given ACHS CA Protocol Ondansetron HCl 4 mg 01/11/22 15:30 Ondansetron 4 Mg/2 Ml Inj IV Q8H PRN Nausea And Vomiting Pantoprazole Sodium 40 mg 01/20/22 10:00 01/21/22 09:37 Pantoprazole 40 Mg Tab PO 40 mg BID CA Administration Sodium Chloride 10 ml 01/11/22 22:00 01/21/22 09:37 Sodium Chloride 0.9% 10 Ml Flush Syringe IV 10 ml BID CA Administration Sodium Chloride 10 ml 01/11/22 16:00 Sodium Chloride 0.9% 10 Ml Flush Syringe IV PRN PRN LINE FLUSH Nutrition/Malnutrition Assess - Dietary Evaluation Nutrition/Malnutrition Findings: Nutrition Notes Start: 01/12/22 15:00 Freq: Status: Active Protocol: Document 01/19/22 12:34 YNES (Rec: 01/19/22 12:43 YNES [id number]) Nutrition Notes Initial or Follow up Reassessment Current Diagnosis CKD (stage V CKD),Coronary Artery Disease,Diabetes, Hypertension Other Pertinent Diagnosis ESRD+HD, Anemia, s/p GI Bleed, Diverticulosis. Current Diet GI Soft Diet (since D 01/18). Labs/Tests 01/19: Crea 3.4, Ca 7.5. Pertinent Medications 01/19: Nutritionally uremarkable. Height 5 ft 8 in Weight 61.6 kg [place] Body Weight (kg) 70.00 BMI 20.6 Weight change and time frame 7.169 Kg body weight gain reported in 1 week. Weight Status Appropriate Subjective/Other Information RD consult for routine F/U on dietary advancement. Diet advanced to PO, No reports on Pt's PO intake of meals at the time, will assess at F/U. Pt is on Nasal Cannula, O2 saturation @ 98%, according to Physical Assessment History notes. Pt is incontinent, according to Physical Assessment History notes. Pt presents caries and has missing teeth, according to Physical Assessment History notes. Colonoscopy on 01/17 found diverticuli throughout the colon, but no evidence of active bleeding, according to Progress notes. Pt is medically stable and redy for discharge to SNF, according to Progress notes. Percent of energy/protein needs met: Prescribed GI Soft Diet provides for energy/protein needs (2,000 Kcal/82 g) during LOS. Burn Absent Trauma Absent GI Symptoms Other Food Allergy No Skin Integrity/Comment Unspecified area of concern. Minimum of two criteria No Fluid Accumulation N/A Reduced Radio Antenna Installer Strength N/A (non-severe) Protein-Calorie Malnutrition N\A #2 Nutrition Diagnosis Altered GI function Comments: Colonoscopy on 01/17 found diverticuli throughout the colon, but no evidence of active bleeding, according to Progress notes. Diagnosis Progress(for reassessment Improved documentation) #1 Nutrition Diagnosis Underweight Diagnosis Progress(for reassessment Continues documentation) Is patient on ventilator? No Is Patient Ambulatory and/or Out of Bed No REE-([facility]-confined to bed) 1673.808 Kcal/Kg value to use for calculation 30 Approximate Energy Requirements Using 1848 kcal/Kg Calculation Used for Recommendations Kcal/kg Additional Notes Protein: >1.2 g/Kg ABW; >65 g/ day. Fluids: 1 ml/Kcal, or as per MD. Nutrition Intervention Change Diet Order: Continue GI Soft Diet as tolerated. Goal #1 Facilitate PO intake of meals with elemental, textural, or mechanical modification during LOS. Follow-Up By: 01/26/22 Additional Comments Continue monitoring food tolerance, %PO intake of meals , and BM.
[2022-01-22] MEDS: INSULIN LISPRO 100 UNIT/ML SUB-Q SCH ×4 (09:50→21:46)
[2022-01-22] MEDS: PANTOPRAZOLE 40 MG TAB PO SCH ×2 (10:00→21:26)
--- NOTE | 2022-01-22 10:03 | Progress Note ---
Assessment and Plan 1. ESRD: Patient is on maintenance hemodialysis, MWF schedule. Hemodialysis: 01/13, 01/16, 01/18, 01/19(UF only), 01/20, 01/21(UF only). 2. FEN: Volume overload, UF with HD as tolerated. S/p additional UF sessions. Hyperkalemia, improved with HD. Monitor lytes and volume status. 3. 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 Collaterals presumably chronic, gallstones. S/p EGD and Colonoscopy. Suspect diverticular, recurrent episodes requiring several units of blood. Seen by General Surgery. PPI, trend CBC. 4. Acute hypoxic respiratory failure: Supplemental oxygen as needed. Volume control thru HD. Monitor. 5. DM with Hypoglycemia: Monitor. 6. Hypertension: Adjust meds as needed. Volume control. Monitor BP. Subjective: Patient was seen and examined at the bedside. Examination: General appearance: well-developed, appears stated age, not in distress HEENT: no icterus Neck: trachea midline Respiratory: ctab Heart: S1S2, regular, no murmur Abdomen: soft, bowel sounds heard, NT, no palpable mass Integumentary: no obvious rash Neurologic: conversing, able to move extremities Ext: trace edema of UEs Hemodialysis access: R IJ tunnel catheter Subjective Date of service: 01/22/22 Principal diagnosis: End-stage renal disease, gastrointestinal bleeding Objective - Vital Signs Vital signs: Vital Signs - 12hr 01/21/22 01/22/22 01/22/22 23:48 03:31 07:31 Temperature 97.5 F L 97.9 F 97.8 F Pulse Rate 95 H 99 H 91 H Respiratory 17 17 18 Rate Blood Pressure 154/88 128/80 155/75 O2 Sat by Pulse 98 100 97 Oximetry - Lab 01/20/22 23:06 01/19/22 04:21 Most recent lab results Calcium 7.5 mg/dL (8.4-10.2) L 01/19/22 04:21 Phosphorus 6.80 mg/dL (2.5-4.5) H 01/16/22 04:07 Magnesium 1.90 mg/dL (1.7-2.3) 01/16/22 04:07 Medications & Allergies - Medications Allergies/Adverse Reactions: Allergies No Known Allergies Allergy (Verified 01/11/22 09:20) Home Medications: Home Medications Medication Instructions Recorded Confirmed Last Taken Type Tamsulosin [Flomax] 0.4 mg PO QDAY #30 cap 01/07/20 01/16/22 Unknown Rx Bacitracin Zinc Oint [Antibiotic 1 applicatio TP BID #1 tube 03/21/20 01/16/22 Unknown Rx Oint] Benzonatate [Tessalon Perles] 100 mg PO Q8HR PRN #20 capsule 03/21/20 01/16/22 Unknown Rx Acetaminophen [Tylenol] 325 mg PO Q6H PRN 01/16/22 01/16/22 Unknown History Atorvastatin [Lipitor] 80 mg PO QHS 01/16/22 01/16/22 Unknown History Calcium Acetate [Phoslo] 667 mg PO QDAY 01/16/22 01/16/22 Unknown History Ergocalciferol (Vitamin D2) 1,250 mcg PO QDAY 01/16/22 01/16/22 Unknown History [Drisdol] Glycerin/Propylene Glycol 30 ml OP QDAY PRN 01/16/22 01/16/22 Unknown History [Artificial Tears Drops] Insulin Lispro [Admelog] See Protocol SQ ACHS 01/16/22 01/16/22 Unknown History Lactobacillus Acidophilus 0.5 mg PO QDAY 01/16/22 01/16/22 Unknown History [Acidophilus Probiotic] Lactulose [Cephulac] 20 gm PO BID PRN 01/16/22 01/16/22 Unknown History Mag Hydrox/Aluminum Hyd/Simeth 10 ml PO QDAY 01/16/22 01/16/22 Unknown History [Mylanta Maximum Strength Pkt] Melatonin [Melatonin 5MG CAP] 5 mg PO QHS 01/16/22 01/16/22 Unknown History Torsemide [Demadex] 100 mg PO QDAY 01/16/22 01/16/22 Unknown History Vit B Comp No.3/Folic/C/Biotin 1 tab PO QDAY 01/16/22 01/16/22 Unknown History [Prisca-Theodore Rx Tablet] megestroL [Megestrol] 40 mg PO QDAY 01/16/22 01/16/22 Unknown History polyethylene glycoL 3350 [Miralax 17 gm PO BID PRN 01/16/22 01/16/22 Unknown History 3350] Amiodarone [Cordarone 200 MG TAB] 200 mg PO QDAY #30 tab 01/19/22 Unknown Rx Pantoprazole [Protonix TAB] 40 mg PO BID #60 tablet 01/19/22 Unknown Rx amLODIPine 10 mg PO QDAY #30 tab 01/19/22 Unknown Rx carvediloL [Coreg] 6.25 mg PO BID #60 tab 01/19/22 Unknown Rx Active Medications: Generic Name Dose Route Start Last Admin Trade Name Freq PRN Reason Stop Dose Admin Acetaminophen 650 mg 01/11/22 16:00 01/18/22 23:35 Acetaminophen 325 Mg Tab PO 650 mg Q4H PRN Administration Pain MILD(1-3)/Fever >100.5/ESQUIVEL Dextrose 50 ml 01/16/22 07:43 01/17/22 18:04 Dextrose 50% In Water (25gm) 50 Ml Syringe IV 10 ml Q30MIN PRN Administration Hypoglycemia Protocol Epoetin Sushil-epbx 20,000 unit 01/19/22 23:03 Epoetin Sushil-Epbx 20,000 Unit/1 Ml Vial SUB-Q JUANITO PRN hemodialysis Hydralazine HCl 10 mg 01/16/22 07:45 01/20/22 21:57 Hydralazine 20 Mg/1 Ml Inj IV 10 mg Q4HR PRN Administration Hypertension Sodium Chloride 100 mls @ 999 mls/hr 01/19/22 23:03 Nacl 0.9% IV JUANITO PRN Hypotension Insulin Human Lispro 0 unit 01/18/22 16:30 01/22/22 09:50 Insulin Lispro 100 Unit/Ml SUB-Q Not Given ACHS CA Protocol Ondansetron HCl 4 mg 01/11/22 15:30 Ondansetron 4 Mg/2 Ml Inj IV Q8H PRN Nausea And Vomiting Pantoprazole Sodium 40 mg 01/20/22 10:00 01/22/22 10:00 Pantoprazole 40 Mg Tab PO 40 mg BID CA Administration Sodium Chloride 10 ml 01/11/22 22:00 01/22/22 10:00 Sodium Chloride 0.9% 10 Ml Flush Syringe IV 10 ml BID CA Administration Sodium Chloride 10 ml 01/11/22 16:00 Sodium Chloride 0.9% 10 Ml Flush Syringe IV PRN PRN LINE FLUSH
--- NOTE | 2022-01-22 10:04 | Progress Note ---
Assessment and Plan Assessment and plan: This is a 62-year-old male with ESRD on HD, HTN, CABG x2, aortic dissection s/p thoracic aortic stent, BPH and DM admitted with GI bleeding ICU course to date: 01/15: Patient was transferred to ICU for closer monitoring yesterday afternoon after second episode of GI bleeding was noted and he had a repeat CTA abdomen/pelvis. Patient's hemoglobin dropped to 5 yesterday and was given 2 units PRBC. GI recommends obtaining another CTA if recurrence of GI bleeding noted. 01/16: Patient will get HD today and possibly 25 DC tomorrow. Added hydralazine as needed for hypertension. Started D10 drip due to persistent hypoglycemia. 01/17: Patient remains stable, no s/s of any active bleeding overnight. H&H is stable. Plan for repeat Colonoscopy today by GI. Continue D10w for hypoglycemia and trend CBC 01/18: s/p repeat colonoscopy, diverticuli noted throughout the colon but no evidence of any active bleeding. No bloody stools reported for over 48hrs, H&H and vital signs are stable. GI and general surgery recommendations noted. If bleeding reoccur patient's only option is a total colectomy since patient is not a candidate for any angiography intervention due to history of aortic dissection. Continue PPI, and continue to trend CBC. Advance diet as tolerated, will D/C D10w gtt if patient tolerates PO intake. Continue BG check ACHS, avoid hypoglycemia. Plan for HD today per Nephro. D/W CCM patient is stable for transfer to Telemetry. 01/19: Patient seen and examined clinically stable, discussed with surgery and also with all the specialties involved in the case.reviewed GI and Surgery notes. Patient not a candidate for any IR procedure. Surgery only option and a waiting next bleed if it happens. Even with bleeding in the past, hemodynamically patient has been stable. Also discussed with the sister and explained the clinical condition of findings she verbalized understanding plan at this time is for discharge of patient back to the facility 01/20: Late entry, awaiting discharge to facility. 01/21: Patient seen and examined, resting comfortable. No new compliant. No new Bleeding reported. H/H stable. 01/22: No new bleeding, awaiting placement, continue supportive care. Assessment and Plan GI: LGIB, moderate protein calorie malnutrition/ Diverticulosis -GI, IR, surgery consulted, appreciate recommendations -Abdomen pelvis CT showed previous placement of thoracic aortic stent graft, 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 Collaterals presumably chronic, gallstones -S/p EGD and 01/12 which showed normal esophagus, mild erythematous mucosa in the antrum of of the body, biopsies obtained, normal duodenum, biopsies obtained and no source of GI bleeding found -S/p colonoscopy on 01/12 due to feeling poor quality however likely diverticular bleed -01/13 CTA abdomen/pelvis showed mild diverticular disease throughout the colon with endoluminal opacification of nearly all of the colon suggesting oral co ntrast however patient did have a history of oral contrast administration in addition To saturations would include carious excretion of contrast from the gallbladder however this appears out of proportion therefore hemorrhage should be considered, no clear source is identified, redemonstrated vascular disease without change -01/15 CTA abdomen/pelvis previous placement of thoracic aortic stent graft with 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 See report for details -General surgery recommendations noted. -If bleeding reoccur patient's only option is a total colectomy since patient is not a candidate for any angiography intervention due to history of aortic dissection. -Continue PPI, and continue to trend CBC -Advance diet as tolerated : ESRD on HD, h/o BPH -Nephrology consulted, appreciate recommendations -HD per nephrology -Monitor intake and output -Renally dose medications -Avoid nephrotoxic medications -Trend BMP Cardiac: h/o HTN, CABG x2, thoracic aortic aneurysm s/p repair -Hydralazine prn -Blood pressure monitoring per protocol Respiratory: Acute hypoxic respiratory failure -Supplemental oxygen as needed -SPO2 monitor per protocol -Pulmonary hygiene Endo: Hypoglycemia, h/o DM -probably due to NPO status -On D10w gtt -Plan to advance diet as tolerated -will D/C D10w gtt if patient tolerates PO intake. -Continue BG check ACHS -avoid hypoglycemia -Continue hypoglycemic protocol Heme: Acute on chronic anemia of chronic disease, GIB -Presented with GI bleed -Multiple episodes of GI bleed noted throughout stay -S/p 5 unit prbc -h/h q 8 hours -Trend CBC -Transfuse hemoglobin less than 7 Disposition: [facility] Final Discharge Diagnosis (Prints w/discharge instructions): Acute on chronic anemia of chronic disease, GIB. Diverticulosis. ESRD on HD, h/o BPH. HTN, C ABG x2, thoracic aortic aneurysm s/p repair. Acute hypoxic respiratory failure. Hypoglycemia, h/o DM History Interval history: Patient seen and examined, no new complaints, no fever, no bleeding. sitting at bedside Hospitalist Physical - Physical exam Narrative exam: General appearance: Present: no acute distress, well-nourished, - EENT Eyes: Present: PERRL ENT: hearing intact - Neck Neck: Present: normal ROM - Respiratory Respiratory effort: normal Respiratory: left: wheezing, bilateral: diminished - Cardiovascular Rhythm: regular Heart Sounds: Present: S1 & S2 - Extremities Extremities: no ischemia, pulses intact, pulses symmetrical Extremity abnormal: edema - Peripheral Assessment Generalized Edema Type: Non-pitting Edema Degree: 2+ Capillary Refill: < 3 seconds Skin Temperature: Warm Peripheral Pulses: within normal limits - Abdominal General gastrointestinal: soft, non-distended, normal bowel sounds - Integumentary Integumentary: Present: clear, warm, dry - Psychiatric Psychiatric: appropriate mood/affect, cooperative - Neurologic Neurologic: CNII-XII intact, moves all extremities - Allied Health Allied health notes reviewed: nursing, case management - Constitutional Vitals: Temp Pulse Resp BP Pulse Ox 97.8 F 91 H 18 155/75 97 01/22/22 07:31 01/22/22 07:31 01/22/22 07:31 01/22/22 07:31 01/22/22 07:31 General appearance: Present: no acute distress, well-nourished, obese Results - Labs CBC & Chem 7: 01/20/22 23:06 01/19/22 04:21 Labs: Laboratory Last Values WBC 10.2 K/mm3 (4.5-11.0) 01/20/22 23:06 RBC 3.00 M/mm3 (3.65-5.03) L 01/20/22 23:06 Hgb 9.1 gm/dl (11.8-15.2) L 01/20/22 23:06 Hct 29.3 % (35.5-45.6) L 01/20/22 23:06 MCV 98 fl (84-94) H 01/20/22 23:06 MCH 30 pg (28-32) 01/20/22 23:06 MCHC 31 % (32-34) L 01/20/22 23:06 RDW 18.6 % (13.2-15.2) H 01/20/22 23:06 Plt Count 135 K/mm3 (140-440) L 01/20/22 23:06 Lymph % (Auto) 10.2 % (13.4-35.0) L 01/20/22 23:06 [place] % (Auto) 9.9 % (0.0-7.3) H 01/20/22 23:06 Eos % (Auto) 7.2 % (0.0-4.3) H 01/20/22 23:06 Baso % (Auto) 0.5 % (0.0-1.8) 01/20/22 23:06 Lymph # (Auto) 1.0 K/mm3 (1.2-5.4) L 01/20/22 23:06 [place] # (Auto) 1.0 K/mm3 (0.0-0.8) H 01/20/22 23:06 Eos # (Auto) 0.7 K/mm3 (0.0-0.4) H 01/20/22 23:06 Baso # (Auto) 0.0 K/mm3 (0.0-0.1) 01/20/22 23:06 Add Manual Diff Complete 01/11/22 13:02 Total Counted 100 01/11/22 13:02 Seg Neutrophils % 72.2 % (40.0-70.0) H 01/20/22 23:06 Seg Neuts % (Manual) 76.0 % (40.0-70.0) H 01/11/22 13:02 Band Neutrophils % 1.0 % 01/11/22 13:02 Lymphocytes % (Manual) 7.0 % (13.4-35.0) L 01/11/22 13:02 Reactive Lymphs % (Man) 0 % 01/11/22 13:02 Monocytes % (Manual) 5.0 % (0.0-7.3) 01/11/22 13:02 Eosinophils % (Manual) 11.0 % (0.0-4.3) H 01/11/22 13:02 Basophils % (Manual) 0 % (0.0-1.8) 01/11/22 13:02 Metamyelocytes % 0 % 01/11/22 13:02 Myelocytes % 0 % 01/11/22 13:02 Promyelocytes % 0 % 01/11/22 13:02 Blast Cells % 0 % 01/11/22 13:02 Nucleated RBC % Not Reportable 01/11/22 13:02 Seg Neutrophils # 7.3 K/mm3 (1.8-7.7) 01/20/22 23:06 Seg Neutrophils # Man 5.1 K/mm3 (1.8-7.7) 01/11/22 13:02 Band Neutrophils # 0.1 K/mm3 01/11/22 13:02 Lymphocytes # (Manual) 0.5 K/mm3 (1.2-5.4) L 01/11/22 13:02 Abs React Lymphs (Man) 0.0 K/mm3 01/11/22 13:02 Monocytes # (Manual) 0.3 K/mm3 (0.0-0.8) 01/11/22 13:02 Eosinophils # (Manual) 0.7 K/mm3 (0.0-0.4) H 01/11/22 13:02 Basophils # (Manual) 0.0 K/mm3 (0.0-0.1) 01/11/22 13:02 Metamyelocytes # 0.0 K/mm3 01/11/22 13:02 Myelocytes # 0.0 K/mm3 01/11/22 13:02 Promyelocytes # 0.0 K/mm3 01/11/22 13:02 Blast Cells # 0.0 K/mm3 01/11/22 13:02 WBC Morphology Not Reportable 01/11/22 13:02 Hypersegmented Neuts Not Reportable 01/11/22 13:02 Hyposegmented Neuts Not Reportable 01/11/22 13:02 Hypogranular Neuts Not Reportable 01/11/22 13:02 Smudge Cells Not Reportable 01/11/22 13:02 Toxic Granulation Not Reportable 01/11/22 13:02 Toxic Vacuolation Not Reportable 01/11/22 13:02 Dohle Bodies Not Reportable 01/11/22 13:02 Pelger-Huet Anomaly Not Reportable 01/11/22 13:02 Heri Rods Not Reportable 01/11/22 13:02 Platelet Estimate Consistent w auto 01/11/22 13:02 Clumped Platelets Not Reportable 01/11/22 13:02 Plt Clumps, EDTA Not Reportable 01/11/22 13:02 Large Platelets Not Reportable 01/11/22 13:02 Giant Platelets Not Reportable 01/11/22 13:02 Platelet Satelliting Not Reportable 01/11/22 13:02 Plt Morphology Comment Not Reportable 01/11/22 13:02 RBC Morphology Not Reportable 01/11/22 13:02 Dimorphic RBCs Not Reportable 01/11/22 13:02 Polychromasia Not Reportable 01/11/22 13:02 Hypochromasia 2+ 01/11/22 13:02 Poikilocytosis Not Reportable 01/11/22 13:02 Anisocytosis Not Reportable 01/11/22 13:02 Microcytosis Not Reportable 01/11/22 13:02 Macrocytosis 1+ 01/11/22 13:02 Spherocytes Not Reportable 01/11/22 13:02 Pappenheimer Bodies Not Reportable 01/11/22 13:02 Sickle Cells Not Reportable 01/11/22 13:02 Target Cells Not Reportable 01/11/22 13:02 Tear Drop Cells Not Reportable 01/11/22 13:02 Ovalocytes Not Reportable 01/11/22 13:02 Helmet Cells Not Reportable 01/11/22 13:02 [place] Bodies Not Reportable 01/11/22 13:02 [place] Rings Not Reportable 01/11/22 13:02 [place] Cells Not Reportable 01/11/22 13:02 Bite Cells Not Reportable 01/11/22 13:02 Crenated Cell Not Reportable 01/11/22 13:02 Elliptocytes Not Reportable 01/11/22 13:02 Acanthocytes (Spur) Not Reportable 01/11/22 13:02 Rouleaux Not Reportable 01/11/22 13:02 Hemoglobin C Crystals Not Reportable 01/11/22 13:02 Schistocytes Not Reportable 01/11/22 13:02 Malaria parasites Not Reportable 01/11/22 13:02 [place] Bodies Not Reportable 01/11/22 13:02 Hem Pathologist Commnt No 01/11/22 13:02 PT 15.8 Sec. (12.2-14.9) H 01/11/22 09:58 INR 1.13 (0.87-1.13) 01/11/22 09:58 Sodium 142 mmol/L (137-145) 01/19/22 04:21 Potassium 3.6 mmol/L (3.6-5.0) 01/19/22 04:21 Chloride 103.3 mmol/L (98-107) 01/19/22 04:21 Carbon Dioxide 30 mmol/L (22-30) 01/19/22 04:21 Anion Gap 12 mmol/L 01/19/22 04:21 BUN 13 mg/dL (9-20) 01/19/22 04:21 Creatinine 3.4 mg/dL (0.8-1.3) H 01/19/22 04:21 Estimated GFR 22 ml/min 01/19/22 04:21 BUN/Creatinine Ratio 4 % 01/19/22 04:21 Glucose 77 mg/dL (75-100) 01/19/22 04:21 POC Glucose 75 mg/dL (70-105) 01/22/22 07:29 Calcium 7.5 mg/dL (8.4-10.2) L 01/19/22 04:21 Phosphorus 6.80 mg/dL (2.5-4.5) H 01/16/22 04:07 Magnesium 1.90 mg/dL (1.7-2.3) 01/16/22 04:07 Total Bilirubin 0.30 mg/dL (0.1-1.2) 01/18/22 04:32 AST 15 units/L (5-40) 01/18/22 04:32 ALT 13 units/L (7-56) 01/18/22 04:32 Alkaline Phosphatase 53 units/L (35-129) 01/18/22 04:32 Total Protein 5.3 g/dL (6.3-8.2) L 01/18/22 04:32 Albumin 3.0 g/dL (3.9-5) L 01/18/22 04:32 Albumin/Globulin Ratio 1.3 % 01/18/22 04:32 Lipase 19 units/L (13-60) 01/11/22 09:58 SARS-CoV-2 (PCR) Negative (Negative) 01/19/22 14:45 Blood Type O POSITIVE 01/13/22 05:45 Antibody Screen Negative 01/13/22 05:45 Crossmatch See Detail 01/13/22 05:45 Breaux/IV: Voiding Method Incontinent Active Medications - Current Medications Current Medications: Generic Name Dose Route Start Last Admin Trade Name Freq PRN Reason Stop Dose Admin Acetaminophen 650 mg 01/11/22 16:00 01/18/22 23:35 Acetaminophen 325 Mg Tab PO 650 mg Q4H PRN Administration Pain MILD(1-3)/Fever >100.5/ESQUIVEL Dextrose 50 ml 01/16/22 07:43 01/17/22 18:04 Dextrose 50% In Water (25gm) 50 Ml Syringe IV 10 ml Q30MIN PRN Administration Hypoglycemia Protocol Epoetin Sushil-epbx 20,000 unit 01/19/22 23:03 Epoetin Sushil-Epbx 20,000 Unit/1 Ml Vial SUB-Q JUANITO PRN hemodialysis Hydralazine HCl 10 mg 01/16/22 07:45 01/20/22 21:57 Hydralazine 20 Mg/1 Ml Inj IV 10 mg Q4HR PRN Administration Hypertension Sodium Chloride 100 mls @ 999 mls/hr 01/19/22 23:03 Nacl 0.9% IV JUANITO PRN Hypotension Insulin Human Lispro 0 unit 01/18/22 16:30 01/22/22 09:50 Insulin Lispro 100 Unit/Ml SUB-Q Not Given ACHS CA Protocol Ondansetron HCl 4 mg 01/11/22 15:30 Ondansetron 4 Mg/2 Ml Inj IV Q8H PRN Nausea And Vomiting Pantoprazole Sodium 40 mg 01/20/22 10:00 01/22/22 10:00 Pantoprazole 40 Mg Tab PO 40 mg BID CA Administration Sodium Chloride 10 ml 01/11/22 22:00 01/22/22 10:00 Sodium Chloride 0.9% 10 Ml Flush Syringe IV 10 ml BID CA Administration Sodium Chloride 10 ml 01/11/22 16:00 Sodium Chloride 0.9% 10 Ml Flush Syringe IV PRN PRN LINE FLUSH Nutrition/Malnutrition Assess - Dietary Evaluation Nutrition/Malnutrition Findings: Nutrition Notes Start: 01/12/22 15:00 Freq: Status: Active Protocol: Document 01/19/22 12:34 YNES (Rec: 01/19/22 12:43 YNES [id number]) Nutrition Notes Initial or Follow up Reassessment Current Diagnosis CKD (stage V CKD),Coronary Artery Disease,Diabetes, Hypertension Other Pertinent Diagnosis ESRD+HD, Anemia, s/p GI Bleed, Diverticulosis. Current Diet GI Soft Diet (since D 01/18). Labs/Tests 01/19: Crea 3.4, Ca 7.5. Pertinent Medications 01/19: Nutritionally uremarkable. Height 5 ft 8 in Weight 61.6 kg [place] Body Weight (kg) 70.00 BMI 20.6 Weight change and time frame 7.169 Kg body weight gain reported in 1 week. Weight Status Appropriate Subjective/Other Information RD consult for routine F/U on dietary advancement. Diet advanced to PO, No reports on Pt's PO intake of meals at the time, will assess at F/U. Pt is on Nasal Cannula, O2 saturation @ 98%, according to Physical Assessment History notes. Pt is incontinent, according to Physical Assessment History notes. Pt presents caries and has missing teeth, according to Physical Assessment History notes. Colonoscopy on 01/17 found diverticuli throughout the colon, but no evidence of active bleeding, according to Progress notes. Pt is medically stable and redy for discharge to SNF, according to Progress notes. Percent of energy/protein needs met: Prescribed GI Soft Diet provides for energy/protein needs (2,000 Kcal/82 g) during LOS. Burn Absent Trauma Absent GI Symptoms Other Food Allergy No Skin Integrity/Comment Unspecified area of concern. Minimum of two criteria No Fluid Accumulation N/A Reduced Billing Collections Specialist Strength N/A (non-severe) Protein-Calorie Malnutrition N\A #2 Nutrition Diagnosis Altered GI function Comments: Colonoscopy on 01/17 found diverticuli throughout the colon, but no evidence of active bleeding, according to Progress notes. Diagnosis Progress(for reassessment Improved documentation) #1 Nutrition Diagnosis Underweight Diagnosis Progress(for reassessment Continues documentation) Is patient on ventilator? No Is Patient Ambulatory and/or Out of Bed No REE-([place]-St. Jeor-confined to bed) 1673.808 Kcal/Kg value to use for calculation 30 Approximate Energy Requirements Using 1848 kcal/Kg Calculation Used for Recommendations Kcal/kg Additional Notes Protein: >1.2 g/Kg ABW; >65 g/ day. Fluids: 1 ml/Kcal, or as per MD. Nutrition Intervention Change Diet Order: Continue GI Soft Diet as tolerated. Goal #1 Facilitate PO intake of meals with elemental, textural, or mechanical modification during LOS. Follow-Up By: 01/26/22 Additional Comments Continue monitoring food tolerance, %PO intake of meals , and BM.
[2022-01-22] MEDS: DOCUSATE SODIUM 100 MG CAP PO SCH ×2 (11:02→21:26)
[2022-01-22] MEDS: ONDANSETRON 4 MG/2 ML INJ IV PRN (12:34)
[2022-01-22 19:36] LABS: Hepatitis B Surface Antigen Non-Reactive (Negative); Hepatitis C Virus Antibody Non-Reactive (NonReactive)
[2022-01-23] MEDS: ACETAMINOPHEN 325 MG TAB PO PRN (03:13)
[2022-01-23] MEDS: INSULIN LISPRO 100 UNIT/ML SUB-Q SCH ×4 (07:49→22:00)
--- NOTE | 2022-01-23 08:01 | Progress Note ---
Assessment and Plan Assessment and plan: This is a 62-year-old male with ESRD on HD, HTN, CABG x2, aortic dissection s/p thoracic aortic stent, BPH and DM admitted with GI bleeding ICU course to date: 01/15: Patient was transferred to ICU for closer monitoring yesterday afternoon after second episode of GI bleeding was noted and he had a repeat CTA abdomen/pelvis. Patient's hemoglobin dropped to 5 yesterday and was given 2 units PRBC. GI recommends obtaining another CTA if recurrence of GI bleeding noted. 01/16: Patient will get HD today and possibly 25 DC tomorrow. Added hydralazine as needed for hypertension. Started D10 drip due to persistent hypoglycemia. 01/17: Patient remains stable, no s/s of any active bleeding overnight. H&H is stable. Plan for repeat Colonoscopy today by GI. Continue D10w for hypoglycemia and trend CBC 01/18: s/p repeat colonoscopy, diverticuli noted throughout the colon but no evidence of any active bleeding. No bloody stools reported for over 48hrs, H&H and vital signs are stable. GI and general surgery recommendations noted. If bleeding reoccur patient's only option is a total colectomy since patient is not a candidate for any angiography intervention due to history of aortic dissection. Continue PPI, and continue to trend CBC. Advance diet as tolerated, will D/C D10w gtt if patient tolerates PO intake. Continue BG check ACHS, avoid hypoglycemia. Plan for HD today per Nephro. D/W CCM patient is stable for transfer to Telemetry. 01/19: Patient seen and examined clinically stable, discussed with surgery and also with all the specialties involved in the case.reviewed GI and Surgery notes. Patient not a candidate for any IR procedure. Surgery only option and a waiting next bleed if it happens. Even with bleeding in the past, hemodynamically patient has been stable. Also discussed with the sister and explained the clinical condition of findings she verbalized understanding plan at this time is for discharge of patient back to the facility 01/20: Late entry, awaiting discharge to facility. 01/21: Patient seen and examined, resting comfortable. No new compliant. No new Bleeding reported. H/H stable. 01/22: No new bleeding, awaiting placement, continue supportive care. 01/23: Continue supportive care. No further bleeding noted. Anticipate discharge in a.m. if placement is obtained Assessment and Plan GI: LGIB, moderate protein calorie malnutrition/ Diverticulosis -GI, IR, surgery consulted, appreciate recommendations -Abdomen pelvis CT showed previous placement of thoracic aortic stent graft, 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 Collaterals presumably chronic, gallstones -S/p EGD and 01/12 which showed normal esophagus, mild erythematous mucosa in the antrum of of the body, biopsies obtained, normal duodenum, biopsies obtained and no source of GI bleeding found -S/p colonoscopy on 01/12 due to feeling poor quality however likely diverticular bleed -01/13 CTA abdomen/pelvis showed mild diverticular disease throughout the colon with endoluminal opacification of nearly all of the colon suggesting oral contrast however patient did have a history of oral contrast administration in addition To saturations would include carious excretion of contrast from the gallbladder however this appears out of proportion therefore hemorrhage should be considered, no clear source is identified, redemonstrated vascular disease without change -01/15 CTA abdomen/pelvis previous placement of thoracic aortic stent graft with 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 See report for details -General surgery recommendations noted. -If bleeding reoccur patient's only option is a total colectomy since patient is not a candidate for any angiography intervention due to history of aortic dissection. -Continue PPI, and continue to trend CBC -Advance diet as tolerated : ESRD on HD, h/o BPH -Nephrology consulted, appreciate recommendations -HD per nephrology -Monitor intake and output -Renally dose medications -Avoid nephrotoxic medications -Trend BMP Cardiac: h/o HTN, CABG x2, thoracic aortic aneurysm s/p repair -Hydralazine prn -Blood pressure monitoring per protocol Respiratory: Acute hypoxic respiratory failure -Supplemental oxygen as needed -SPO2 monitor per protocol -Pulmonary hygiene Endo: Hypoglycemia, h/o DM -probably due to NPO status -On D10w gtt -Plan to advance diet as tolerated -will D/C D10w gtt if patient tolerates PO intake. -Continue BG check ACHS -avoid hypoglycemia -Continue hypoglycemic protocol Heme: Acute on chronic anemia of chronic disease, GIB -Presented with GI bleed -Multiple episodes of GI bleed noted throughout stay -S/p 5 unit prbc -h/h q 8 hours -Trend CBC -Transfuse hemoglobin less than 7 Disposition: 03 [facility] Final Discharge Diagnosis (Prints w/discharge instructions): Acute on chronic anemia of chronic disease, GIB. Diverticulosis. ESRD on HD, h/o BPH. HTN, CABG x2, thoracic aortic aneurysm s/p repair. Acute hypoxic respiratory failure. Hypoglycemia, h/o DM History Interval history: Patient seen and examined, no new complaints, no fever, no bleeding. For HD this morning Hospitalist Physical - Physical exam Narrative exam: General appearance: Present: no acute distress, well-nourished, - EENT Eyes: Present: PERRL ENT: hearing intact - Neck Neck: Present: normal ROM - Respiratory Respiratory effort: normal Respiratory: left: wheezing, bilateral: diminished - Cardiovascular Rhythm: regular Heart Sounds: Present: S1 & S2 - Extremities Extremities: no ischemia, pulses intact, pulses symmetrical Extremity abnormal: edema - Peripheral Assessment Generalized Edema Type: Non-pitting Edema Degree: 2+ Capillary Refill: < 3 seconds Skin Temperature: Warm Peripheral Pulses: within normal limits - Abdominal General gastrointestinal: soft, non-distended, normal bowel sounds - Integumentary Integumentary: Present: clear, warm, dry - Psychiatric Psychiatric: appropriate mood/affect, cooperative - Neurologic Neurologic: CNII-XII intact, moves all extremities - Allied Health Allied health notes reviewed: nursing, case management - Constitutional Vitals: Temp Pulse Resp BP Pulse Ox 98.8 F 89 18 163/90 100 01/23/22 03:48 01/23/22 03:48 01/23/22 03:48 01/23/22 03:48 01/23/22 03:48 General appearance: Present: no acute distress, well-nourished, obese Results - Labs CBC & Chem 7: 01/20/22 23:06 01/19/22 04:21 Labs: Laboratory Last Values WBC 10.2 K/mm3 (4.5-11.0) 01/20/22 23:06 RBC 3.00 M/mm3 (3.65-5.03) L 01/20/22 23:06 Hgb 9.1 gm/dl (11.8-15.2) L 01/20/22 23:06 Hct 29.3 % (35.5-45.6) L 01/20/22 23:06 MCV 98 fl (84-94) H 01/20/22 23:06 MCH 30 pg (28-32) 01/20/22 23:06 MCHC 31 % (32-34) L 01/20/22 23:06 RDW 18.6 % (13.2-15.2) H 01/20/22 23:06 Plt Count 135 K/mm3 (140-440) L 01/20/22 23:06 Lymph % (Auto) 10.2 % (13.4-35.0) L 01/20/22 23:06 [place] % (Auto) 9.9 % (0.0-7.3) H 01/20/22 23:06 Eos % (Auto) 7.2 % (0.0-4.3) H 01/20/22 23:06 Baso % (Auto) 0.5 % (0.0-1.8) 01/20/22 23:06 Lymph # (Auto) 1.0 K/mm3 (1.2-5.4) L 01/20/22 23:06 [place] # (Auto) 1.0 K/mm3 (0.0-0.8) H 01/20/22 23:06 Eos # (Auto) 0.7 K/mm3 (0.0-0.4) H 01/20/22 23:06 Baso # (Auto) 0.0 K/mm3 (0.0-0.1) 01/20/22 23:06 Add Manual Diff Complete 01/11/22 13:02 Total Counted 100 01/11/22 13:02 Seg Neutrophils % 72.2 % (40.0-70.0) H 01/20/22 23:06 Seg Neuts % (Manual) 76.0 % (40.0-70.0) H 01/11/22 13:02 Band Neutrophils % 1.0 % 01/11/22 13:02 Lymphocytes % (Manual) 7.0 % (13.4-35.0) L 01/11/22 13:02 Reactive Lymphs % (Man) 0 % 01/11/22 13:02 Monocytes % (Manual) 5.0 % (0.0-7.3) 01/11/22 13:02 Eosinophils % (Manual) 11.0 % (0.0-4.3) H 01/11/22 13:02 Basophils % (Manual) 0 % (0.0-1.8) 01/11/22 13:02 Metamyelocytes % 0 % 01/11/22 13:02 Myelocytes % 0 % 01/11/22 13:02 Promyelocytes % 0 % 01/11/22 13:02 Blast Cells % 0 % 01/11/22 13:02 Nucleated RBC % Not Reportable 01/11/22 13:02 Seg Neutrophils # 7.3 K/mm3 (1.8-7.7) 01/20/22 23:06 Seg Neutrophils # Man 5.1 K/mm3 (1.8-7.7) 01/11/22 13:02 Band Neutrophils # 0.1 K/mm3 01/11/22 13:02 Lymphocytes # (Manual) 0.5 K/mm3 (1.2-5.4) L 01/11/22 13:02 Abs React Lymphs (Man) 0.0 K/mm3 01/11/22 13:02 Monocytes # (Manual) 0.3 K/mm3 (0.0-0.8) 01/11/22 13:02 Eosinophils # (Manual) 0.7 K/mm3 (0.0-0.4) H 01/11/22 13:02 Basophils # (Manual) 0.0 K/mm3 (0.0-0.1) 01/11/22 13:02 Metamyelocytes # 0.0 K/mm3 01/11/22 13:02 Myelocytes # 0.0 K/mm3 01/11/22 13:02 Promyelocytes # 0.0 K/mm3 01/11/22 13:02 Blast Cells # 0.0 K/mm3 01/11/22 13:02 WBC Morphology Not Reportable 01/11/22 13:02 Hypersegmented Neuts Not Reportable 01/11/22 13:02 Hyposegmented Neuts Not Reportable 01/11/22 13:02 Hypogranular Neuts Not Reportable 01/11/22 13:02 Smudge Cells Not Reportable 01/11/22 13:02 Toxic Granulation Not Reportable 01/11/22 13:02 Toxic Vacuolation Not Reportable 01/11/22 13:02 Dohle Bodies Not Reportable 01/11/22 13:02 Pelger-Huet Anomaly Not Reportable 01/11/22 13:02 Heri Rods Not Reportable 01/11/22 13:02 Platelet Estimate Consistent w auto 01/11/22 13:02 Clumped Platelets Not Reportable 01/11/22 13:02 Plt Clumps, EDTA Not Reportable 01/11/22 13:02 Large Platelets Not Reportable 01/11/22 13:02 Giant Platelets Not Reportable 01/11/22 13:02 Platelet Satelliting Not Reportable 01/11/22 13:02 Plt Morphology Comment Not Reportable 01/11/22 13:02 RBC Morphology Not Reportable 01/11/22 13:02 Dimorphic RBCs Not Reportable 01/11/22 13:02 Polychromasia Not Reportable 01/11/22 13:02 Hypochromasia 2+ 01/11/22 13:02 Poikilocytosis Not Reportable 01/11/22 13:02 Anisocytosis Not Reportable 01/11/22 13:02 Microcytosis Not Reportable 01/11/22 13:02 Macrocytosis 1+ 01/11/22 13:02 Spherocytes Not Reportable 01/11/22 13:02 Pappenheimer Bodies Not Reportable 01/11/22 13:02 Sickle Cells Not Reportable 01/11/22 13:02 Target Cells Not Reportable 01/11/22 13:02 Tear Drop Cells Not Reportable 01/11/22 13:02 Ovalocytes Not Reportable 01/11/22 13:02 Helmet Cells Not Reportable 01/11/22 13:02 [place] Bodies Not Reportable 01/11/22 13:02 [place] Rings Not Reportable 01/11/22 13:02 [place] Cells Not Reportable 01/11/22 13:02 Bite Cells Not Reportable 01/11/22 13:02 Crenated Cell Not Reportable 01/11/22 13:02 Elliptocytes Not Reportable 01/11/22 13:02 Acanthocytes (Spur) Not Reportable 01/11/22 13:02 Rouleaux Not Reportable 01/11/22 13:02 Hemoglobin C Crystals Not Reportable 01/11/22 13:02 Schistocytes Not Reportable 01/11/22 13:02 Malaria parasites Not Reportable 01/11/22 13:02 [place] Bodies Not Reportable 01/11/22 13:02 Hem Pathologist Commnt No 01/11/22 13:02 PT 15.8 Sec. (12.2-14.9) H 01/11/22 09:58 INR 1.13 (0.87-1.13) 01/11/22 09:58 Sodium 142 mmol/L (137-145) 01/19/22 04:21 Potassium 3.6 mmol/L (3.6-5.0) 01/19/22 04:21 Chloride 103.3 mmol/L (98-107) 01/19/22 04:21 Carbon Dioxide 30 mmol/L (22-30) 01/19/22 04:21 Anion Gap 12 mmol/L 01/19/22 04:21 BUN 13 mg/dL (9-20) 01/19/22 04:21 Creatinine 3.4 mg/dL (0.8-1.3) H 01/19/22 04:21 Estimated GFR 22 ml/min 01/19/22 04:21 BUN/Creatinine Ratio 4 % 01/19/22 04:21 Glucose 77 mg/dL (75-100) 01/19/22 04:21 POC Glucose 99 mg/dL (70-105) 01/22/22 20:07 Calcium 7.5 mg/dL (8.4-10.2) L 01/19/22 04:21 Phosphorus 6.80 mg/dL (2.5-4.5) H 01/16/22 04:07 Magnesium 1.90 mg/dL (1.7-2.3) 01/16/22 04:07 Total Bilirubin 0.30 mg/dL (0.1-1.2) 01/18/22 04:32 AST 15 units/L (5-40) 01/18/22 04:32 ALT 13 units/L (7-56) 01/18/22 04:32 Alkaline Phosphatase 53 units/L (35-129) 01/18/22 04:32 Total Protein 5.3 g/dL (6.3-8.2) L 01/18/22 04:32 Albumin 3.0 g/dL (3.9-5) L 01/18/22 04:32 Albumin/Globulin Ratio 1.3 % 01/18/22 04:32 Lipase 19 units/L (13-60) 01/11/22 09:58 SARS-CoV-2 (PCR) Negative (Negative) 01/19/22 14:45 Hepatitis A IgM Ab Non-reactive (NonReactive) 01/22/22 17:20 Hep Bs Antigen Non-reactive (Negative) 01/22/22 17:20 Hep B Core IgM Ab Non-reactive (NonReactive) 01/22/22 17:20 Hepatitis C Antibody Non-reactive (NonReactive) 01/22/22 17:20 Blood Type O POSITIVE 01/13/22 05:45 Antibody Screen Negative 01/13/22 05:45 Crossmatch See Detail 01/13/22 05:45 Breaux/IV: Voiding Method Incontinent Active Medications - Current Medications Current Medications: Generic Name Dose Route Start Last Admin Trade Name Freq PRN Reason Stop Dose Admin Acetaminophen 650 mg 01/11/22 16:00 01/23/22 03:13 Acetaminophen 325 Mg Tab PO 650 mg Q4H PRN Administration Pain MILD(1-3)/Fever >100.5/ESQUIVEL Dextrose 50 ml 01/16/22 07:43 01/17/22 18:04 Dextrose 50% In Water (25gm) 50 Ml Syringe IV 10 ml Q30MIN PRN Administration Hypoglycemia Protocol Docusate Sodium 100 mg 01/22/22 11:00 01/22/22 21:26 Docusate Sodium 100 Mg Cap PO 100 mg BID CA Administration Epoetin Sushil-epbx 20,000 unit 01/19/22 23:03 Epoetin Sushil-Epbx 20,000 Unit/1 Ml Vial SUB-Q JUANITO PRN hemodialysis Hydralazine HCl 10 mg 01/16/22 07:45 01/20/22 21:57 Hydralazine 20 Mg/1 Ml Inj IV 10 mg Q4HR PRN Administration Hypertension Sodium Chloride 100 mls @ 999 mls/hr 01/19/22 23:03 Nacl 0.9% IV JUANITO PRN Hypotension Insulin Human Lispro 0 unit 01/18/22 16:30 01/23/22 07:49 Insulin Lispro 100 Unit/Ml SUB-Q Not Given ACHS [facility] Protocol Ondansetron HCl 4 mg 01/11/22 15:30 01/22/22 12:34 Ondansetron 4 Mg/2 Ml Inj IV 4 mg Q8H PRN Administration Nausea And Vomiting Pantoprazole Sodium 40 mg 01/20/22 10:00 01/22/22 21:26 Pantoprazole 40 Mg Tab PO 40 mg BID CA Administration Sodium Chloride 10 ml 01/11/22 22:00 01/22/22 21:27 Sodium Chloride 0.9% 10 Ml Flush Syringe IV 10 ml BID CA Administration Sodium Chloride 10 ml 01/11/22 16:00 Sodium Chloride 0.9% 10 Ml Flush Syringe IV PRN PRN LINE FLUSH Nutrition/Malnutrition Assess - Dietary Evaluation Nutrition/Malnutrition Findings: Nutrition Notes Start: 01/12/22 15:00 Freq: Status: Active Protocol: Document 01/19/22 12:34 YNES (Rec: 01/19/22 12:43 YNES [id number]) Nutrition Notes Initial or Follow up Reassessment Current Diagnosis CKD (stage V CKD),Coronary Artery Disease,Diabetes, Hypertension Other Pertinent Diagnosis ESRD+HD, Anemia, s/p GI Bleed, Diverticulosis. Current Diet GI Soft Diet (since D 01/18). Labs/Tests 01/19: Crea 3.4, Ca 7.5. Pertinent Medications 01/19: Nutritionally uremarkable. Height 5 ft 8 in Weight 61.6 kg [place] Body Weight (kg) 70.00 BMI 20.6 Weight change and time frame 7.169 Kg body weight gain reported in 1 week. Weight Status Appropriate Subjective/Other Information RD consult for routine F/U on dietary advancement. Diet advanced to PO, No reports on Pt's PO intake of meals at the time, will assess at F/U. Pt is on Nasal Cannula, O2 saturation @ 98%, according to Physical Assessment History notes. Pt is incontinent, according to Physical Assessment History notes. Pt presents caries and has missing teeth, according to Physical Assessment History notes. Colonoscopy on 01/17 found diverticuli throughout the colon, but no evidence of active bleeding, according to Progress notes. Pt is medically stable and redy for discharge to SNF, according to Progress notes. Percent of energy/protein needs met: Prescribed GI Soft Diet provides for energy/protein needs (2,000 Kcal/82 g) during LOS. Burn Absent Trauma Absent GI Symptoms Other Food Allergy No Skin Integrity/Comment Unspecified area of concern. 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 Diagnosis Progress(for reassessment Improved documentation) #1 Nutrition Diagnosis Underweight Diagnosis Progress(for reassessment Continues documentation) Is patient on ventilator? No Is Patient Ambulatory and/or Out of Bed No REE-([place]-. [place]-confined to bed) 1673.808 Kcal/Kg value to use for calculation 30 Approximate Energy Requirements Using 1848 kcal/Kg Calculation Used for Recommendations Kcal/kg Additional Notes Protein: >1.2 g/Kg ABW; >65 g/ day. Fluids: 1 ml/Kcal, or as per MD. Nutrition Intervention Change Diet Order: Continue GI Soft Diet as tolerated. Goal #1 Facilitate PO intake of meals with elemental, textural, or mechanical modification during LOS. Follow-Up By: 01/26/22 Additional Comments Continue monitoring food tolerance, %PO intake of meals , and BM.
[2022-01-23] MEDS: DOCUSATE SODIUM 100 MG CAP PO SCH ×2 (09:00→22:00)
[2022-01-23] MEDS: PANTOPRAZOLE 40 MG TAB PO SCH ×2 (09:00→22:00)
--- NOTE | 2022-01-23 09:15 | Progress Note ---
Assessment and Plan 1. ESRD: Patient is on maintenance hemodialysis, MWF schedule. Hemodialysis: 01/13, 01/16, 01/18, 01/19(UF only), 01/20, 01/21(UF only). 2. FEN: Volume overload, UF with HD as tolerated. S/p additional UF sessions. Hyperkalemia, improved with HD. Monitor lytes and volume status. 3. 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 Collaterals presumably chronic, gallstones. S/p EGD and Colonoscopy. Suspect diverticular, recurrent episodes requiring several units of blood. Seen by General Surgery. Epogen with HD. PPI, trend CBC. 4. Acute hypoxic respiratory failure: Supplemental oxygen as needed. Volume control thru HD. Monitor. 5. DM with Hypoglycemia: Monitor. 6. Hypertension: Adjust meds as needed. Volume control. Monitor BP. Subjective: Patient was seen and examined at the bedside. Examination: General appearance: well-developed, appears stated age, not in distress HEENT: no icterus Neck: trachea midline Respiratory: ctab Heart: S1S2, regular, no murmur Abdomen: soft, bowel sounds heard, NT, no palpable mass Integumentary: no obvious rash Neurologic: conversing, able to move extremities Ext: trace edema of UEs Hemodialysis access: R IJ tunnel catheter Subjective Date of service: 01/23/22 Principal diagnosis: End-stage renal disease, gastrointestinal bleeding Objective - Vital Signs Vital signs: Vital Signs - 12hr 01/22/22 01/23/22 01/23/22 22:00 03:48 08:10 Temperature 98.8 F 98.9 F Pulse Rate 89 88 Respiratory 18 18 Rate Blood Pressure 163/90 144/76 O2 Sat by Pulse 97 100 100 Oximetry - Lab 01/20/22 23:06 01/19/22 04:21 Most recent lab results Calcium 7.5 mg/dL (8.4-10.2) L 01/19/22 04:21 Phosphorus 6.80 mg/dL (2.5-4.5) H 01/16/22 04:07 Magnesium 1.90 mg/dL (1.7-2.3) 01/16/22 04:07 Medications & Allergies - Medications Allergies/Adverse Reactions: Allergies No Known Allergies Allergy (Verified 01/11/22 09:20) Home Medications: Home Medications Medication Instructions Recorded Confirmed Last Taken Type Tamsulosin [Flomax] 0.4 mg PO QDAY #30 cap 01/07/20 01/16/22 Unknown Rx Bacitracin Zinc Oint [Antibiotic 1 applicatio TP BID #1 tube 03/21/20 01/16/22 Unknown Rx Oint] Benzonatate [Tessalon Perles] 100 mg PO Q8HR PRN #20 capsule 03/21/20 01/16/22 Unknown Rx Acetaminophen [Tylenol] 325 mg PO Q6H PRN 01/16/22 01/16/22 Unknown History Atorvastatin [Lipitor] 80 mg PO QHS 01/16/22 01/16/22 Unknown History Calcium Acetate [Phoslo] 667 mg PO QDAY 01/16/22 01/16/22 Unknown History Ergocalciferol (Vitamin D2) 1,250 mcg PO QDAY 01/16/22 01/16/22 Unknown History [Drisdol] Glycerin/Propylene Glycol 30 ml OP QDAY PRN 01/16/22 01/16/22 Unknown History [Artificial Tears Drops] Insulin Lispro [Admelog] See Protocol SQ ACHS 01/16/22 01/16/22 Unknown History Lactobacillus Acidophilus 0.5 mg PO QDAY 01/16/22 01/16/22 Unknown History [Acidophilus Probiotic] Lactulose [Cephulac] 20 gm PO BID PRN 01/16/22 01/16/22 Unknown History Mag Hydrox/Aluminum Hyd/Simeth 10 ml PO QDAY 01/16/22 01/16/22 Unknown History [Mylanta Maximum Strength Pkt] Melatonin [Melatonin 5MG CAP] 5 mg PO QHS 01/16/22 01/16/22 Unknown History Torsemide [Demadex] 100 mg PO QDAY 01/16/22 01/16/22 Unknown History Vit B Comp No.3/Folic/C/Biotin 1 tab PO QDAY 01/16/22 01/16/22 Unknown History [Prisca-Theodore Rx Tablet] megestroL [Megestrol] 40 mg PO QDAY 01/16/22 01/16/22 Unknown History polyethylene glycoL 3350 [Miralax 17 gm PO BID PRN 01/16/22 01/16/22 Unknown History 7280] Amiodarone [Cordarone 200 MG TAB] 200 mg PO QDAY #30 tab 01/19/22 Unknown Rx Pantoprazole [Protonix TAB] 40 mg PO BID #60 tablet 01/19/22 Unknown Rx amLODIPine 10 mg PO QDAY #30 tab 01/19/22 Unknown Rx carvediloL [Coreg] 6.25 mg PO BID #60 tab 01/19/22 Unknown Rx Active Medications: Generic Name Dose Route Start Last Admin Trade Name Freq PRN Reason Stop Dose Admin Acetaminophen 650 mg 01/11/22 16:00 01/23/22 03:13 Acetaminophen 325 Mg Tab PO 650 mg Q4H PRN Administration Pain MILD(1-3)/Fever >100.5/ESQUIVEL Dextrose 50 ml 01/16/22 07:43 01/17/22 18:04 Dextrose 50% In Water (25gm) 50 Ml Syringe IV 10 ml Q30MIN PRN Administration Hypoglycemia Protocol Docusate Sodium 100 mg 01/22/22 11:00 01/23/22 09:00 Docusate Sodium 100 Mg Cap PO 100 mg BID CA Administration Epoetin Sushil-epbx 20,000 unit 01/19/22 23:03 Epoetin Sushil-Epbx 20,000 Unit/1 Ml Vial SUB-Q JUANITO PRN hemodialysis Hydralazine HCl 10 mg 01/16/22 07:45 01/20/22 21:57 Hydralazine 20 Mg/1 Ml Inj IV 10 mg Q4HR PRN Administration Hypertension Sodium Chloride 100 mls @ 999 mls/hr 01/19/22 23:03 Nacl 0.9% IV JUANITO PRN Hypotension Insulin Human Lispro 0 unit 01/18/22 16:30 01/23/22 07:49 Insulin Lispro 100 Unit/Ml SUB-Q Not Given ACHS [facility] Protocol Ondansetron HCl 4 mg 01/11/22 15:30 01/22/22 12:34 Ondansetron 4 Mg/2 Ml Inj IV 4 mg Q8H PRN Administration Nausea And Vomiting Pantoprazole Sodium 40 mg 01/20/22 10:00 01/23/22 09:00 Pantoprazole 40 Mg Tab PO 40 mg BID CA Administration Sodium Chloride 10 ml 01/11/22 22:00 01/23/22 09:00 Sodium Chloride 0.9% 10 Ml Flush Syringe IV 10 ml BID CA Administration Sodium Chloride 10 ml 01/11/22 16:00 Sodium Chloride 0.9% 10 Ml Flush Syringe IV PRN PRN LINE FLUSH
--- NOTE | 2022-01-24 07:52 | Progress Note ---
Assessment and Plan 1. ESRD: Patient is on maintenance hemodialysis, MWF schedule. Hemodialysis: 01/13, 01/16, 01/18, 01/19(UF only), 01/20, 01/21(UF only), 01/23. 2. FEN: Volume overload, UF with HD as tolerated. S/p additional UF sessions. Hyperkalemia, improved with HD. Monitor lytes and volume status. 3. 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 Co llaterals presumably chronic, gallstones. S/p EGD and Colonoscopy. Suspect diverticular, recurrent episodes requiring several units of blood. Seen by General Surgery. Epogen with HD. PPI, trend CBC. 4. Acute hypoxic respiratory failure: Supplemental oxygen as needed. Volume control thru HD. Monitor. 5. DM with Hypoglycemia: Monitor. 6. Hypertension: Adjust meds as needed. Volume control. Monitor BP. Subjective: Patient was seen and examined at the bedside. Examination: General appearance: well-developed, appears stated age, not in distress HEENT: no icterus Neck: trachea midline Respiratory: ctab Heart: S1S2, regular, no murmur Abdomen: soft, bowel sounds heard, NT, no palpable mass Integumentary: LE stasis changes noted Neurologic: conversing, able to move extremities Ext: trace edema of Exts Hemodialysis access: R IJ tunnel catheter Subjective Date of service: 01/24/22 Principal diagnosis: End-stage renal disease, gastrointestinal bleeding Objective - Vital Signs Vital signs: Vital Signs - 12hr 01/23/22 01/23/22 01/23/22 20:31 22:00 23:00 Temperature Pulse Rate 92 H Respiratory 18 20 Rate Blood Pressure Blood Pressure 135/87 [Right] O2 Sat by Pulse 100 97 99 Oximetry 01/24/22 04:12 Temperature 98.5 F Pulse Rate 87 Respiratory 16 Rate Blood Pressure 155/91 Blood Pressure [Right] O2 Sat by Pulse 99 Oximetry - Lab 01/20/22 23:06 01/19/22 04:21 Most recent lab results Calcium 7.5 mg/dL (8.4-10.2) L 01/19/22 04:21 Phosphorus 6.80 mg/dL (2.5-4.5) H 01/16/22 04:07 Magnesium 1.90 mg/dL (1.7-2.3) 01/16/22 04:07 Medications & Allergies - Medications Allergies/Adverse Reactions: Allergies No Known Allergies Allergy (Verified 01/11/22 09:20) Home Medications: Home Medications Medication Instructions Recorded Confirmed Last Taken Type Tamsulosin [Flomax] 0.4 mg PO QDAY #30 cap 01/07/20 01/16/22 Unknown Rx Bacitracin Zinc Oint [Antibiotic 1 applicatio TP BID #1 tube 03/21/20 01/16/22 Unknown Rx Oint] Benzonatate [Tessalon Perles] 100 mg PO Q8HR PRN #20 capsule 03/21/20 01/16/22 Unknown Rx Acetaminophen [Tylenol] 325 mg PO Q6H PRN 01/16/22 01/16/22 Unknown History Atorvastatin [Lipitor] 80 mg PO QHS 01/16/22 01/16/22 Unknown History Calcium Acetate [Phoslo] 667 mg PO QDAY 01/16/22 01/16/22 Unknown History Ergocalciferol (Vitamin D2) 1,250 mcg PO QDAY 01/16/22 01/16/22 Unknown History [Drisdol] Glycerin/Propylene Glycol 30 ml OP QDAY PRN 01/16/22 01/16/22 Unknown History [Artificial Tears Drops] Insulin Lispro [Admelog] See Protocol SQ ACHS 01/16/22 01/16/22 Unknown History Lactobacillus Acidophilus 0.5 mg PO QDAY 01/16/22 01/16/22 Unknown History [Acidophilus Probiotic] Lactulose [Cephulac] 20 gm PO BID PRN 01/16/22 01/16/22 Unknown History Mag Hydrox/Aluminum Hyd/Simeth 10 ml PO QDAY 01/16/22 01/16/22 Unknown History [Mylanta Maximum Strength Pkt] Melatonin [Melatonin 5MG CAP] 5 mg PO QHS 01/16/22 01/16/22 Unknown History Torsemide [Demadex] 100 mg PO QDAY 01/16/22 01/16/22 Unknown History Vit B Comp No.3/Folic/C/Biotin 1 tab PO QDAY 01/16/22 01/16/22 Unknown History [Prisca-Theodore Rx Tablet] megestroL [Megestrol] 40 mg PO QDAY 01/16/22 01/16/22 Unknown History polyethylene glycoL 3350 [Miralax 17 gm PO BID PRN 01/16/22 01/16/22 Unknown History 3350] Amiodarone [Cordarone 200 MG TAB] 200 mg PO QDAY #30 tab 01/19/22 Unknown Rx Pantoprazole [Protonix TAB] 40 mg PO BID #60 tablet 01/19/22 Unknown Rx amLODIPine 10 mg PO QDAY #30 tab 01/19/22 Unknown Rx carvediloL [Coreg] 6.25 mg PO BID #60 tab 01/19/22 Unknown Rx Active Medications: Generic Name Dose Route Start Last Admin Trade Name Freq PRN Reason Stop Dose Admin Acetaminophen 650 mg 01/11/22 16:00 01/23/22 03:13 Acetaminophen 325 Mg Tab PO 650 mg Q4H PRN Administration Pain MILD(1-3)/Fever >100.5/ESQUIVEL Dextrose 50 ml 01/16/22 07:43 01/17/22 18:04 Dextrose 50% In Water (25gm) 50 Ml Syringe IV 10 ml Q30MIN PRN Administration Hypoglycemia Protocol Docusate Sodium 100 mg 01/22/22 11:00 01/23/22 22:00 Docusate Sodium 100 Mg Cap PO 100 mg BID CA Administration Epoetin Sushil-epbx 20,000 unit 01/23/22 12:00 Epoetin Sushil-Epbx 10,000 Unit/1 Ml Vial SUB-Q JUANITO PRN hemodialysis Hydralazine HCl 10 mg 01/16/22 07:45 01/20/22 21:57 Hydralazine 20 Mg/1 Ml Inj IV 10 mg Q4HR PRN Administration Hypertension Sodium Chloride 100 mls @ 999 mls/hr 01/19/22 23:03 Nacl 0.9% IV JUANITO PRN Hypotension Insulin Human Lispro 0 unit 01/18/22 16:30 01/23/22 22:00 Insulin Lispro 100 Unit/Ml SUB-Q Not Given ACHS [facility] Protocol Ondansetron HCl 4 mg 01/11/22 15:30 01/22/22 12:34 Ondansetron 4 Mg/2 Ml Inj IV 4 mg Q8H PRN Administration Nausea And Vomiting Pantoprazole Sodium 40 mg 01/20/22 10:00 01/23/22 22:00 Pantoprazole 40 Mg Tab PO 40 mg BID CA Administration Sodium Chloride 10 ml 01/11/22 22:00 01/23/22 22:00 Sodium Chloride 0.9% 10 Ml Flush Syringe IV 10 ml BID CA Administration Sodium Chloride 10 ml 01/11/22 16:00 Sodium Chloride 0.9% 10 Ml Flush Syringe IV PRN PRN LINE FLUSH
[2022-01-24] MEDS: INSULIN LISPRO 100 UNIT/ML SUB-Q SCH ×4 (07:53→22:00)
[2022-01-24] MEDS: PANTOPRAZOLE 40 MG TAB PO SCH ×2 (10:52→22:29)
[2022-01-24] MEDS: DOCUSATE SODIUM 100 MG CAP PO SCH ×2 (10:52→22:29)
[2022-01-24] MEDS ORDERED: ONDANSETRON 8 MG ODT TAB PO PRN (11:54)
--- NOTE | 2022-01-24 14:43 | Progress Note ---
Assessment and Plan Assessment and plan: Addendum entered and electronically signed by YOEL MARISCAL MD 01/23/22 10:29: In summary of visit the patient came in with rectal bleed requiring transfusion. GI evaluated the patient also diverticulosis. Surgery evaluated the patient no planned intervention at this time but if patient rebleeds will need a total colectomy. In the meantime patient is currently waiting for placement Original Note: Assessment and Plan Assessment and plan: This is a 62-year-old male with ESRD on HD, HTN, CABG x2, aortic dissection s/p thoracic aortic stent, BPH and DM admitted with GI bleeding ICU course to date: 01/15: Patient was transferred to ICU for closer monitoring yesterday afternoon after second episode of GI bleeding was noted and he had a repeat CTA abdomen/pelvis. Patient's hemoglobin dropped to 5 yesterday and was given 2 units PRBC. GI recommends obtaining another CTA if recurrence of GI bleeding noted. 01/16: Patient will get HD today and possibly 25 DC tomorrow. Added hydralazine as needed for hypertension. Started D10 drip due to persistent hypoglycemia. 01/17: Patient remains stable, no s/s of any active bleeding overnight. H&H is stable. Plan for repeat Colonoscopy today by GI. Continue D10w for hypoglycemia and trend CBC 01/18: s/p repeat colonoscopy, diverticuli noted throughout the colon but no evidence of any active bleeding. No bloody stools reported for over 48hrs, H&H and vital signs are stable. GI and general surgery recommendations noted. If b leeding reoccur patient's only option is a total colectomy since patient is not a candidate for any angiography intervention due to history of aortic dissection. Continue PPI, and continue to trend CBC. Advance diet as tolerated, will D/C D10w gtt if patient tolerates PO intake. Continue BG check ACHS, avoid hypoglycemia. Plan for HD today per Nephro. D/W [facility] patient is stable for transfer to Telemetry. 01/19: Patient seen and examined clinically stable, discussed with surgery and also with all the specialties involved in the case.reviewed GI and Surgery notes. Patient not a candidate for any IR procedure. Surgery only option and awaiting next bleed if it happens. Even with bleeding in the past, hemodynamically patient has been stable. Also discussed with the sister and explained the clinical condition of findings she verbalized understanding plan at this time is for discharge of patient back to the facility 01/20: Late entry, awaiting discharge to facility. 01/21: Patient seen and examined, resting comfortable. No new compliant. No new Bleeding reported. H/H stable. 01/22: No new bleeding, awaiting placement, continue supportive care. 01/23: Continue supportive care. No further bleeding noted. Anticipate discharge in a.m. if placement is obtained 01/24: Continue supportive care. Complaints of abdominal pain and some nausea this morning. Change Zofran to ODT. Continue pantoprazole. Discussed with case management regarding placement today. Case management will be following up with [facility] (where pt presented from) as to why patient cannot return back to facility. Assessment and Plan GI: LGIB, moderate protein calorie malnutrition/ Diverticulosis -GI, IR, surgery consulted, appreciate recommendations -Abdomen pelvis CT showed previous placement of thoracic aortic stent graft, 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 Collaterals presumably chronic, gallstones -S/p EGD and 01/12 which showed normal esophagus, mild erythematous mucosa in the antrum of of the body, biopsies obtained, normal duodenum, biopsies obtained and no source of GI bleeding found -S/p colonoscopy on 01/12 due to feeling poor quality however likely diverticular bleed -01/13 CTA abdomen/pelvis showed mild diverticular disease throughout the colon with endoluminal opacification of nearly all of the colon suggesting oral contrast however patient did have a history of oral contrast administration in addition To saturations would include carious excretion of contrast from the gallbladder however this appears out of proportion therefore hemorrhage should be considered, no clear source is identified, redemonstrated vascular disease without change -01/15 CTA abdomen/pelvis previous placement of thoracic aortic stent graft with 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 See report for details -General surgery recommendations noted. -If bleeding reoccur patient's only option is a total colectomy since patient is not a candidate for any angiography intervention due to history of aortic dissection. -Continue PPI, and continue to trend CBC -Advance diet as tolerated : ESRD on HD, h/o BPH -Nephrology consulted, appreciate recommendations -HD per nephrology -Monitor intake and output -Renally dose medications -Avoid nephrotoxic medications -Trend BMP Cardiac: h/o HTN, CABG x2, thoracic aortic aneurysm s/p repair -Hydralazine prn -Blood pressure monitoring per protocol Respiratory: Acute hypoxic respiratory failure -Supplemental oxygen as needed -SPO2 monitor per protocol -Pulmonary hygiene Endo: Hypoglycemia, h/o DM -probably due to NPO status -On D10w gtt -Plan to advance diet as tolerated -will D/C D10w gtt if patient tolerates PO intake. -Continue BG check ACHS -avoid hypoglycemia -Continue hypoglycemic protocol Heme: Acute on chronic anemia of chronic disease, GIB -Presented with GI bleed -Multiple episodes of GI bleed noted throughout stay -S/p 5 unit prbc -h/h q 8 hours -Trend CBC -Transfuse hemoglobin less than 7 Disposition: 03 [facility] Final Discharge Diagnosis (Prints w/discharge instructions): Acute on chronic anemia of chronic disease, GIB. Diverticulosis. ESRD on HD, h/o BPH. HTN, CABG x2, thoracic aortic aneurysm s/p repair. Acute hypoxic respiratory failure. Hypoglycemia, h/o DM History Interval history: Nauseous on encounter. Discussed with RN to administer medication this AM Hospitalist Physical - Physical exam Narrative exam: - Physical exam Narrative exam: General appearance: Present: no acute distress, well-nourished, - EENT Eyes: Present: PERRL ENT: hearing intact - Neck Neck: Present: normal ROM - Respiratory Respiratory effort: normal Respiratory: left: wheezing, bilateral: diminished - Cardiovascular Rhythm: regular Heart Sounds: Present: S1 & S2 - Extremities Extremities: no ischemia, pulses intact, pulses symmetrical Extremity abnormal: edema - Peripheral Assessment Generalized Edema Type: Non-pitting Edema Degree: 2+ Capillary Refill: < 3 seconds Skin Temperature: Warm Peripheral Pulses: within normal limits - Abdominal General gastrointestinal: soft, non-distended, normal bowel sounds - Integumentary Integumentary: Present: clear, warm, dry - Psychiatric Psychiatric: appropriate mood/affect, cooperative - Neurologic Neurologic: CNII-XII intact, moves all extremities - Allied Health Allied health notes reviewed: nursing, case management - Constitutional Vitals: Temp Pulse Resp BP Pulse Ox 98.5 F 87 18 155/91 100 01/24/22 04:12 01/24/22 04:12 01/24/22 07:54 01/24/22 04:12 01/24/22 09:26 General appearance: Present: no acute distress, well-nourished, obese Results - Labs CBC & Chem 7: 01/20/22 23:06 01/19/22 04:21 Labs: Laboratory Last Values WBC 10.2 K/mm3 (4.5-11.0) 01/20/22 23:06 RBC 3.00 M/mm3 (3.65-5.03) L 01/20/22 23:06 Hgb 9.1 gm/dl (11.8-15.2) L 01/20/22 23:06 Hct 29.3 % (35.5-45.6) L 01/20/22 23:06 MCV 98 fl (84-94) H 01/20/22 23:06 MCH 30 pg (28-32) 01/20/22 23:06 MCHC 31 % (32-34) L 01/20/22 23:06 RDW 18.6 % (13.2-15.2) H 01/20/22 23:06 Plt Count 135 K/mm3 (140-440) L 01/20/22 23:06 Lymph % (Auto) 10.2 % (13.4-35.0) L 01/20/22 23:06 Lipscomb % (Auto) 9.9 % (0.0-7.3) H 01/20/22 23:06 Eos % (Auto) 7.2 % (0.0-4.3) H 01/20/22 23:06 Baso % (Auto) 0.5 % (0.0-1.8) 01/20/22 23:06 Lymph # (Auto) 1.0 K/mm3 (1.2-5.4) L 01/20/22 23:06 Lipscomb # (Auto) 1.0 K/mm3 (0.0-0.8) H 01/20/22 23:06 Eos # (Auto) 0.7 K/mm3 (0.0-0.4) H 01/20/22 23:06 Baso # (Auto) 0.0 K/mm3 (0.0-0.1) 01/20/22 23:06 Add Manual Diff Complete 01/11/22 13:02 Total Counted 100 01/11/22 13:02 Seg Neutrophils % 72.2 % (40.0-70.0) H 01/20/22 23:06 Seg Neuts % (Manual) 76.0 % (40.0-70.0) H 01/11/22 13:02 Band Neutrophils % 1.0 % 01/11/22 13:02 Lymphocytes % (Manual) 7.0 % (13.4-35.0) L 01/11/22 13:02 Reactive Lymphs % (Man) 0 % 01/11/22 13:02 Monocytes % (Manual) 5.0 % (0.0-7.3) 01/11/22 13:02 Eosinophils % (Manual) 11.0 % (0.0-4.3) H 01/11/22 13:02 Basophils % (Manual) 0 % (0.0-1.8) 01/11/22 13:02 Metamyelocytes % 0 % 01/11/22 13:02 Myelocytes % 0 % 01/11/22 13:02 Promyelocytes % 0 % 01/11/22 13:02 Blast Cells % 0 % 01/11/22 13:02 Nucleated RBC % Not Reportable 01/11/22 13:02 Seg Neutrophils # 7.3 K/mm3 (1.8-7.7) 01/20/22 23:06 Seg Neutrophils # Man 5.1 K/mm3 (1.8-7.7) 01/11/22 13:02 Band Neutrophils # 0.1 K/mm3 01/11/22 13:02 Lymphocytes # (Manual) 0.5 K/mm3 (1.2-5.4) L 01/11/22 13:02 Abs React Lymphs (Man) 0.0 K/mm3 01/11/22 13:02 Monocytes # (Manual) 0.3 K/mm3 (0.0-0.8) 01/11/22 13:02 Eosinophils # (Manual) 0.7 K/mm3 (0.0-0.4) H 01/11/22 13:02 Basophils # (Manual) 0.0 K/mm3 (0.0-0.1) 01/11/22 13:02 Metamyelocytes # 0.0 K/mm3 01/11/22 13:02 Myelocytes # 0.0 K/mm3 01/11/22 13:02 Promyelocytes # 0.0 K/mm3 01/11/22 13:02 Blast Cells # 0.0 K/mm3 01/11/22 13:02 WBC Morphology Not Reportable 01/11/22 13:02 Hypersegmented Neuts Not Reportable 01/11/22 13:02 Hyposegmented Neuts Not Reportable 01/11/22 13:02 Hypogranular Neuts Not Reportable 01/11/22 13:02 Smudge Cells Not Reportable 01/11/22 13:02 Toxic Granulation Not Reportable 01/11/22 13:02 Toxic Vacuolation Not Reportable 01/11/22 13:02 Dohle Bodies Not Reportable 01/11/22 13:02 Pelger-Huet Anomaly Not Reportable 01/11/22 13:02 Heri Rods Not Reportable 01/11/22 13:02 Platelet Estimate Consistent w auto 01/11/22 13:02 Clumped Platelets Not Reportable 01/11/22 13:02 Plt Clumps, EDTA Not Reportable 01/11/22 13:02 Large Platelets Not Reportable 01/11/22 13:02 Giant Platelets Not Reportable 01/11/22 13:02 Platelet Satelliting Not Reportable 01/11/22 13:02 Plt Morphology Comment Not Reportable 01/11/22 13:02 RBC Morphology Not Reportable 01/11/22 13:02 Dimorphic RBCs Not Reportable 01/11/22 13:02 Polychromasia Not Reportable 01/11/22 13:02 Hypochromasia 2+ 01/11/22 13:02 Poikilocytosis Not Reportable 01/11/22 13:02 Anisocytosis Not Reportable 01/11/22 13:02 Microcytosis Not Reportable 01/11/22 13:02 Macrocytosis 1+ 01/11/22 13:02 Spherocytes Not Reportable 01/11/22 13:02 Pappenheimer Bodies Not Reportable 01/11/22 13:02 Sickle Cells Not Reportable 01/11/22 13:02 Target Cells Not Reportable 01/11/22 13:02 Tear Drop Cells Not Reportable 01/11/22 13:02 Ovalocytes Not Reportable 01/11/22 13:02 Helmet Cells Not Reportable 01/11/22 13:02 [employer] Bodies Not Reportable 01/11/22 13:02 [place] Rings Not Reportable 01/11/22 13:02 [place] Cells Not Reportable 01/11/22 13:02 Bite Cells Not Reportable 01/11/22 13:02 Crenated Cell Not Reportable 01/11/22 13:02 Elliptocytes Not Reportable 01/11/22 13:02 Acanthocytes (Spur) Not Reportable 01/11/22 13:02 Rouleaux Not Reportable 01/11/22 13:02 Hemoglobin C Crystals Not Reportable 01/11/22 13:02 Schistocytes Not Reportable 01/11/22 13:02 Malaria parasites Not Reportable 01/11/22 13:02 Jose Antonio Bodies Not Reportable 01/11/22 13:02 Hem Pathologist Commnt No 01/11/22 13:02 PT 15.8 Sec. (12.2-14.9) H 01/11/22 09:58 INR 1.13 (0.87-1.13) 01/11/22 09:58 Sodium 142 mmol/L (137-145) 01/19/22 04:21 Potassium 3.6 mmol/L (3.6-5.0) 01/19/22 04:21 Chloride 103.3 mmol/L (98-107) 01/19/22 04:21 Carbon Dioxide 30 mmol/L (22-30) 01/19/22 04:21 Anion Gap 12 mmol/L 01/19/22 04:21 BUN 13 mg/dL (9-20) 01/19/22 04:21 Creatinine 3.4 mg/dL (0.8-1.3) H 01/19/22 04:21 Estimated GFR 22 ml/min 01/19/22 04:21 BUN/Creatinine Ratio 4 % 01/19/22 04:21 Glucose 77 mg/dL (75-100) 01/19/22 04:21 POC Glucose 80 mg/dL (70-105) 01/24/22 07:37 Calcium 7.5 mg/dL (8.4-10.2) L 01/19/22 04:21 Phosphorus 6.80 mg/dL (2.5-4.5) H 01/16/22 04:07 Magnesium 1.90 mg/dL (1.7-2.3) 01/16/22 04:07 Total Bilirubin 0.30 mg/dL (0.1-1.2) 01/18/22 04:32 AST 15 units/L (5-40) 01/18/22 04:32 ALT 13 units/L (7-56) 01/18/22 04:32 Alkaline Phosphatase 53 units/L (35-129) 01/18/22 04:32 Total Protein 5.3 g/dL (6.3-8.2) L 01/18/22 04:32 Albumin 3.0 g/dL (3.9-5) L 01/18/22 04:32 Albumin/Globulin Ratio 1.3 % 01/18/22 04:32 Lipase 19 units/L (13-60) 01/11/22 09:58 SARS-CoV-2 (PCR) Negative (Negative) 01/19/22 14:45 Hepatitis A IgM Ab Non-reactive (NonReactive) 01/22/22 17:20 Hep Bs Antigen Non-reactive (Negative) 01/22/22 17:20 Hep B Core IgM Ab Non-reactive (NonReactive) 01/22/22 17:20 Hepatitis C Antibody Non-reactive (NonReactive) 01/22/22 17:20 Blood Type O POSITIVE 01/13/22 05:45 Antibody Screen Negative 01/13/22 05:45 Crossmatch See Detail 01/13/22 05:45 Breaux/IV: Voiding Method Incontinent Active Medications - Current Medications Current Medications: Generic Name Dose Route Start Last Admin Trade Name Freq PRN Reason Stop Dose Admin Acetaminophen 650 mg 01/11/22 16:00 01/23/22 03:13 Acetaminophen 325 Mg Tab PO 650 mg Q4H PRN Administration Pain MILD(1-3)/Fever >100.5/ESQUIVEL Dextrose 50 ml 01/16/22 07:43 01/17/22 18:04 Dextrose 50% In Water (25gm) 50 Ml Syringe IV 10 ml Q30MIN PRN Administration Hypoglycemia Protocol Docusate Sodium 100 mg 01/22/22 11:00 01/24/22 10:52 Docusate Sodium 100 Mg Cap PO 100 mg BID CA Administration Epoetin Sushil-epbx 20,000 unit 01/23/22 12:00 Epoetin Sushil-Epbx 10,000 Unit/1 Ml Vial SUB-Q JUANITO PRN hemodialysis Hydralazine HCl 10 mg 01/16/22 07:45 01/20/22 21:57 Hydralazine 20 Mg/1 Ml Inj IV 10 mg Q4HR PRN Administration Hypertension Sodium Chloride 100 mls @ 999 mls/hr 01/19/22 23:03 Nacl 0.9% IV JUANITO PRN Hypotension Insulin Human Lispro 0 unit 01/18/22 16:30 01/24/22 11:56 Insulin Lispro 100 Unit/Ml SUB-Q Not Given ACHS [facility] Protocol Ondansetron HCl 4 mg 01/11/22 15:30 01/22/22 12:34 Ondansetron 4 Mg/2 Ml Inj IV 4 mg Q8H PRN Administration Nausea And Vomiting Ondansetron HCl 8 mg 01/24/22 11:54 01/24/22 13:20 Ondansetron 8 Mg Odt Tab PO 8 mg Q8H PRN Administration Nausea And Vomiting Pantoprazole Sodium 40 mg 01/20/22 10:00 01/24/22 10:52 Pantoprazole 40 Mg Tab PO 40 mg BID CA Administration Sodium Chloride 10 ml 01/11/22 22:00 01/24/22 10:52 Sodium Chloride 0.9% 10 Ml Flush Syringe IV 10 ml BID CA Administration Sodium Chloride 10 ml 01/11/22 16:00 Sodium Chloride 0.9% 10 Ml Flush Syringe IV PRN PRN LINE FLUSH Nutrition/Malnutrition Assess - Dietary Evaluation Nutrition/Malnutrition Findings: Nutrition Notes Start: 01/12/22 15:00 Freq: Status: Active Protocol: Document 01/19/22 12:34 YNES (Rec: 01/19/22 12:43 YNES [id number]) Nutrition Notes Initial or Follow up Reassessment Current Diagnosis CKD (stage V CKD),Coronary Artery Disease,Diabetes, Hypertension Other Pertinent Diagnosis ESRD+HD, Anemia, s/p GI Bleed, Diverticulosis. Current Diet GI Soft Diet (since D 01/18). Labs/Tests 01/19: Crea 3.4, Ca 7.5. Pertinent Medications 01/19: Nutritionally uremarkable. Height 5 ft 8 in Weight 61.6 kg [place] Body Weight (kg) 70.00 BMI 20.6 Weight change and time frame 7.169 Kg body weight gain reported in 1 week. Weight Status Appropriate Subjective/Other Information RD consult for routine F/U on dietary advancement. Diet advanced to PO, No reports on Pt's PO intake of meals at the time, will assess at F/U. Pt is on Nasal Cannula, O2 saturation @ 98%, according to Physical Assessment History notes. Pt is incontinent, according to Physical Assessment History notes. Pt presents caries and has missing teeth, according to Physical Assessment History notes. Colonoscopy on 01/17 found diverticuli throughout the colon, but no evidence of active bleeding, according to Progress notes. Pt is medically stable and redy for discharge to SNF, according to Progress notes. Percent of energy/protein needs met: Prescribed GI Soft Diet provides for energy/protein needs (2,000 Kcal/82 g) during LOS. Burn Absent Trauma Absent GI Symptoms Other Food Allergy No Skin Integrity/Comment Unspecified area of concern. Minimum of two criteria No Fluid Accumulation N/A Reduced Machine Group Leader Strength N/A (non-severe) Protein-Calorie Malnutrition N\A #2 Nutrition Diagnosis Altered GI function Comments: Colonoscopy on 01/17 found diverticuli throughout the colon, but no evidence of active bleeding, according to Progress notes. Diagnosis Progress(for reassessment Improved documentation) #1 Nutrition Diagnosis Underweight Diagnosis Progress(for reassessment Continues documentation) Is patient on ventilator? No Is Patient Ambulatory and/or Out of Bed No REE-([facility] [place]conf[place] bed) [phone] Kcal/Kg value to use for calculation 30 Approximate Energy Requirements Using 1848 kcal/Kg Calculation Used for Recommendations Kcal/kg Additional Notes Protein: >1.2 g/Kg ABW; >65 g/ day. Fluids: 1 ml/Kcal, or as per MD. Nutrition Intervention Change Diet Order: Continue GI Soft Diet as tolerated. Goal #1 Facilitate PO intake of meals with elemental, textural, or mechanical modification during LOS. Follow-Up By: 01/26/22 Additional Comments Continue monitoring food tolerance, %PO intake of meals , and BM.
[2022-01-25] MEDS: INSULIN LISPRO 100 UNIT/ML SUB-Q SCH ×4 (08:51→21:23)
[2022-01-25] MEDS: PANTOPRAZOLE 40 MG TAB PO SCH ×2 (09:30→21:19)
[2022-01-25] MEDS: DOCUSATE SODIUM 100 MG CAP PO SCH ×2 (09:30→21:19)
--- NOTE | 2022-01-25 09:54 | Progress Note ---
Assessment and Plan 1. ESRD: Patient is on maintenance hemodialysis, MWF schedule. Hemodialysis: 01/13, 01/16, 01/18, 01/19(UF only), 01/20, 01/21(UF only), 01/23. HD today. 2. FEN: Volume overload, UF with HD as tolerated. Limit fluid intake. Hyperkalemia, improved with HD. Monitor lytes and volume status. 3. 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 Collaterals presumably chronic, gallstones. S/p EGD and Colonoscopy. Suspect diverticular, recurrent episodes requiring several units of blood. Seen by General Surgery. Epogen with HD. PPI, trend CBC. 4. Acute hypoxic respiratory failure: Supplemental oxygen as needed. Volume control thru HD. Monitor. 5. DM with Hypoglycemia: Monitor. 6. Hypertension: Adjust meds as needed. Volume control. Monitor BP. Subjective: Patient was seen and examined at the bedside. Doing ok. Examination: General appearance: well-developed, appears stated age, not in distress HEENT: no icterus Neck: trachea midline Respiratory: ctab Heart: S1S2, regular, no murmur Abdomen: soft, bowel sounds heard, NT, no palpable mass Integumentary: LE stasis changes noted Neurologic: conversing, able to move extremities Ext: trace edema of Exts Hemodialysis access: R IJ tunnel catheter Subjective Date of service: 01/25/22 Principal diagnosis: End-stage renal disease, gastrointestinal bleeding Objective - Vital Signs Vital signs: Vital Signs - 12hr 01/24/22 01/24/22 01/25/22 22:00 23:27 04:17 Temperature 99.4 F 98.3 F Pulse Rate 103 H 95 H Respiratory 18 20 20 Rate Blood Pressure 144/79 155/80 O2 Sat by Pulse 97 97 100 Oximetry 01/25/22 01/25/22 07:47 07:59 Temperature 98.8 F Pulse Rate 85 Respiratory 19 Rate Blood Pressure 139/75 O2 Sat by Pulse 100 97 Oximetry - Lab 01/20/22 23:06 01/19/22 04:21 Most recent lab results Calcium 7.5 mg/dL (8.4-10.2) L 01/19/22 04:21 Phosphorus 6.80 mg/dL (2.5-4.5) H 01/16/22 04:07 Magnesium 1.90 mg/dL (1.7-2.3) 01/16/22 04:07 Medications & Allergies - Medications Allergies/Adverse Reactions: Allergies No Known Allergies Allergy (Verified 01/11/22 09:20) Home Medications: Home Medications Medication Instructions Recorded Confirmed Last Taken Type Tamsulosin [Flomax] 0.4 mg PO QDAY #30 cap 01/07/20 01/16/22 Unknown Rx Bacitracin Zinc Oint [Antibiotic 1 applicatio TP BID #1 tube 03/21/20 01/16/22 Unknown Rx Oint] Benzonatate [Tessalon Perles] 100 mg PO Q8HR PRN #20 capsule 03/21/20 01/16/22 Unknown Rx Acetaminophen [Tylenol] 325 mg PO Q6H PRN 01/16/22 01/16/22 Unknown History Atorvastatin [Lipitor] 80 mg PO QHS 01/16/22 01/16/22 Unknown History Calcium Acetate [Phoslo] 667 mg PO QDAY 01/16/22 01/16/22 Unknown History Ergocalciferol (Vitamin D2) 1,250 mcg PO QDAY 01/16/22 01/16/22 Unknown History [Drisdol] Glycerin/Propylene Glycol 30 ml OP QDAY PRN 01/16/22 01/16/22 Unknown History [Artificial Tears Drops] Insulin Lispro [Admelog] See Protocol SQ ACHS 01/16/22 01/16/22 Unknown History Lactobacillus Acidophilus 0.5 mg PO QDAY 01/16/22 01/16/22 Unknown History [Acidophilus Probiotic] Lactulose [Cephulac] 20 gm PO BID PRN 01/16/22 01/16/22 Unknown History Mag Hydrox/Aluminum Hyd/Simeth 10 ml PO QDAY 01/16/22 01/16/22 Unknown History [Mylanta Maximum Strength Pkt] Melatonin [Melatonin 5MG CAP] 5 mg PO QHS 01/16/22 01/16/22 Unknown History Torsemide [Demadex] 100 mg PO QDAY 01/16/22 01/16/22 Unknown History Vit B Comp No.3/Folic/C/Biotin 1 tab PO QDAY 01/16/22 01/16/22 Unknown History [Prisca-Theodore Rx Tablet] megestroL [Megestrol] 40 mg PO QDAY 01/16/22 01/16/22 Unknown History polyethylene glycoL 3350 [Miralax 17 gm PO BID PRN 01/16/22 01/16/22 Unknown History 3350] Amiodarone [Cordarone 200 MG TAB] 200 mg PO QDAY #30 tab 01/19/22 Unknown Rx Pantoprazole [Protonix TAB] 40 mg PO BID #60 tablet 01/19/22 Unknown Rx amLODIPine 10 mg PO QDAY #30 tab 01/19/22 Unknown Rx carvediloL [Coreg] 6.25 mg PO BID #60 tab 01/19/22 Unknown Rx Active Medications: Generic Name Dose Route Start Last Admin Trade Name Freq PRN Reason Stop Dose Admin Acetaminophen 650 mg 01/11/22 16:00 01/23/22 03:13 Acetaminophen 325 Mg Tab PO 650 mg Q4H PRN Administration Pain MILD(1-3)/Fever >100.5/ESQUIVEL Dextrose 50 ml 01/16/22 07:43 01/17/22 18:04 Dextrose 50% In Water (25gm) 50 Ml Syringe IV 10 ml Q30MIN PRN Administration Hypoglycemia Protocol Docusate Sodium 100 mg 01/22/22 11:00 01/25/22 09:30 Docusate Sodium 100 Mg Cap PO 100 mg BID CA Administration Epoetin Sushil-epbx 20,000 unit 01/23/22 12:00 Epoetin Sushil-Epbx 10,000 Unit/1 Ml Vial SUB-Q JUANITO PRN hemodialysis Hydralazine HCl 10 mg 01/16/22 07:45 01/20/22 21:57 Hydralazine 20 Mg/1 Ml Inj IV 10 mg Q4HR PRN Administration Hypertension Sodium Chloride 100 mls @ 999 mls/hr 01/19/22 23:03 Nacl 0.9% IV JUANITO PRN Hypotension Insulin Human Lispro 0 unit 01/18/22 16:30 01/25/22 08:51 Insulin Lispro 100 Unit/Ml SUB-Q Not Given ACHS CA Protocol Ondansetron HCl 4 mg 01/11/22 15:30 01/22/22 12:34 Ondansetron 4 Mg/2 Ml Inj IV 4 mg Q8H PRN Administration Nausea And Vomiting Ondansetron HCl 8 mg 01/24/22 11:54 01/24/22 13:20 Ondansetron 8 Mg Odt Tab PO 8 mg Q8H PRN Administration Nausea And Vomiting Pantoprazole Sodium 40 mg 01/20/22 10:00 01/25/22 09:30 Pantoprazole 40 Mg Tab PO 40 mg BID CA Administration Sodium Chloride 10 ml 01/11/22 22:00 01/25/22 09:30 Sodium Chloride 0.9% 10 Ml Flush Syringe IV 10 ml BID CA Administration Sodium Chloride 10 ml 01/11/22 16:00 Sodium Chloride 0.9% 10 Ml Flush Syringe IV PRN PRN LINE FLUSH
[2022-01-25] MEDS: EPOETIN ALFA-EPBX 10,000 UNIT/1 ML VIAL SUB-Q PRN (12:19)
--- NOTE | 2022-01-25 13:43 | Progress Note ---
Assessment and Plan Assessment and plan: Assessment and Plan Assessment and plan: This is a 62-year-old male with ESRD on HD, HTN, CABG x2, aortic dissection s/p thoracic aortic stent, BPH and DM admitted with GI bleeding ICU course to date: 01/15: Patient was transferred to ICU for closer monitoring yesterday afternoon after second episode of GI bleeding was noted and he had a repeat CTA abdomen/pelvis. Patient's hemoglobin dropped to 5 yesterday and was given 2 units PRBC. GI recommends obtaining another CTA if recurrence of GI bleeding noted. 01/16: Patient will get HD today and possibly 25 DC tomorrow. Added hydralazine as needed for hypertension. Started D10 drip due to persistent hypoglycemia. 01/17: Patient remains stable, no s/s of any active bleeding overnight. H&H is stable. Plan for repeat Colonoscopy today by GI. Continue D10w for hypoglycemia and trend CBC 01/18: s/p repeat colonoscopy, diverticuli noted throughout the colon but no evidence of any active bleeding. No bloody stools reported for over 48hrs, H&H and vital signs are stable. GI and general surgery recommendations noted. If bleeding reoccur patient's only option is a total colectomy since patient is not a candidate for any angiography intervention due to history of aortic dissecti on. Continue PPI, and continue to trend CBC. Advance diet as tolerated, will D/C D10w gtt if patient tolerates PO intake. Continue BG check ACHS, avoid hypoglycemia. Plan for HD today per Nephro. D/W [facility] patient is stable for transfer to Telemetry. 01/19: Patient seen and examined clinically stable, discussed with surgery and also with all the specialties involved in the case.reviewed GI and Surgery notes. Patient not a candidate for any IR procedure. Surgery only option and awaiting next bleed if it happens. Even with bleeding in the past, hemodynamically patient has been stable. Also discussed with the sister and explained the clinical condition of findings she verbalized understanding plan at this time is for discharge of patient back to the facility 01/20: Late entry, awaiting discharge to facility. 01/21: Patient seen and examined, resting comfortable. No new compliant. No new Bleeding reported. H/H stable. 01/22: No new bleeding, awaiting placement, continue supportive care. 01/23: Continue supportive care. No further bleeding noted. Anticipate discharge in a.m. if placement is obtained In summary of visit the patient came in with rectal bleed requiring transfusion. GI evaluated the patient also diverticulosis. Surgery evaluated the patient no planned intervention at this time but if patient rebleeds will need a total colectomy. In the meantime patient is currently waiting for placement 01/24: Continue supportive care. Complaints of abdominal pain and some nausea t his morning. Change Zofran to ODT. Continue pantoprazole. Discussed with case management regarding placement today. Case management will be following up with [facility] (where pt presented from) as to why patient cannot return back to facility. 01/25: No acute overnight issues. Awaiting placement. Discussed with CM. Assessment and Plan GI: LGIB, moderate protein calorie malnutrition/ Diverticulosis -GI, IR, surgery consulted, appreciate recommendations -Abdomen pelvis CT showed previous placement of thoracic aortic stent graft, 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 Collaterals presumably chronic, gallstones -S/p EGD and 01/12 which showed normal esophagus, mild erythematous mucosa in the antrum of of the body, biopsies obtained, normal duodenum, biopsies obtained and no source of GI bleeding found -S/p colonoscopy on 01/12 due to feeling poor quality however likely diverticular bleed -01/13 CTA abdomen/pelvis showed mild diverticular disease throughout the colon with endoluminal opacification of nearly all of the colon suggesting oral contrast however patient did have a history of oral contrast administration in addition To saturations would include carious excretion of contrast from the gallbladder however this appears out of proportion therefore hemorrhage should be considered, no clear source is identified, redemonstrated vascular disease without change -01/15 CTA abdomen/pelvis previous placement of thoracic aortic stent graft with 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 See report for details -General surgery recommendations noted. -If bleeding reoccur patient's only option is a total colectomy since patient is not a candidate for any angiography intervention due to history of aortic dissection. -Continue PPI, and continue to trend CBC -Advance diet as tolerated : ESRD on HD, h/o BPH -Nephrology consulted, appreciate recommendations -HD per nephrology -Monitor intake and output -Renally dose medications -Avoid nephrotoxic medications -Trend BMP Cardiac: h/o HTN, CABG x2, thoracic aortic aneurysm s/p repair -Hydralazine prn -Blood pressure monitoring per protocol Respiratory: Acute hypoxic respiratory failure -Supplemental oxygen as needed -SPO2 monitor per protocol -Pulmonary hygiene Endo: Hypoglycemia, h/o DM -probably due to NPO status -On D10w gtt -Plan to advance diet as tolerated -will D/C D10w gtt if patient tolerates PO intake. -Continue BG check ACHS -avoid hypoglycemia -Continue hypoglycemic protocol Heme: Acute on chronic anemia of chronic disease, GIB -Presented with GI bleed -Multiple episodes of GI bleed noted throughout stay -S/p 5 unit prbc -h/h q 8 hours -Trend CBC -Transfuse hemoglobin less than 7 Disposition: 03 [facility] Final Discharge Diagnosis (Prints w/discharge instructions): Acute on chronic anemia of chronic disease, GIB. Diverticulosis. ESRD on HD, h/o BPH. HTN, CABG x2, thoracic aortic aneurysm s/p repair. Acute hypoxic respiratory failure. Hypoglycemia, h/o DM History Interval history: At hemodialysis this AM. No overnight events or acute complaints. Hospitalist Physical - Physical exam Narrative exam: - Physical exam Narrative exam: General appearance: Present: no acute distress, well-nourished, - EENT Eyes: Present: PERRL ENT: hearing intact - Neck Neck: Present: normal ROM - Respiratory Respiratory effort: normal Respiratory: left: wheezing, bilateral: diminished - Cardiovascular Rhythm: regular Heart Sounds: Present: S1 & S2 - Extremities Extremities: no ischemia, pulses intact, pulses symmetrical Extremity abnormal: edema - Peripheral Assessment Generalized Edema Type: Non-pitting Edema Degree: 2+ Capillary Refill: < 3 seconds Skin Temperature: Warm Peripheral Pulses: within normal limits - Abdominal General gastrointestinal: soft, non-distended, normal bowel sounds - Integumentary Integumentary: Present: clear, warm, dry - Psychiatric Psychiatric: appropriate mood/affect, cooperative - Neurologic Neurologic: CNII-XII intact, moves all extremities - Allied Health Allied health notes reviewed: nursing, case management - Constitutional Vitals: Temp Pulse Resp BP Pulse Ox 98.8 F 85 19 139/75 97 01/25/22 07:47 01/25/22 07:47 01/25/22 07:47 01/25/22 07:47 01/25/22 07:59 General appearance: Present: no acute distress, well-nourished, obese Results - Labs CBC & Chem 7: 01/20/22 23:06 01/19/22 04:21 Labs: Laboratory Last Values WBC 10.2 K/mm3 (4.5-11.0) 01/20/22 23:06 RBC 3.00 M/mm3 (3.65-5.03) L 01/20/22 23:06 Hgb 9.1 gm/dl (11.8-15.2) L 01/20/22 23:06 Hct 29.3 % (35.5-45.6) L 01/20/22 23:06 MCV 98 fl (84-94) H 01/20/22 23:06 MCH 30 pg (28-32) 01/20/22 23:06 MCHC 31 % (32-34) L 01/20/22 23:06 RDW 18.6 % (13.2-15.2) H 01/20/22 23:06 Plt Count 135 K/mm3 (140-440) L 01/20/22 23:06 Lymph % (Auto) 10.2 % (13.4-35.0) L 01/20/22 23:06 [place] % (Auto) 9.9 % (0.0-7.3) H 01/20/22 23:06 Eos % (Auto) 7.2 % (0.0-4.3) H 01/20/22 23:06 Baso % (Auto) 0.5 % (0.0-1.8) 01/20/22 23:06 Lymph # (Auto) 1.0 K/mm3 (1.2-5.4) L 01/20/22 23:06 [place] # (Auto) 1.0 K/mm3 (0.0-0.8) H 01/20/22 23:06 Eos # (Auto) 0.7 K/mm3 (0.0-0.4) H 01/20/22 23:06 Baso # (Auto) 0.0 K/mm3 (0.0-0.1) 01/20/22 23:06 Add Manual Diff Complete 01/11/22 13:02 Total Counted 100 01/11/22 13:02 Seg Neutrophils % 72.2 % (40.0-70.0) H 01/20/22 23:06 Seg Neuts % (Manual) 76.0 % (40.0-70.0) H 01/11/22 13:02 Band Neutrophils % 1.0 % 01/11/22 13:02 Lymphocytes % (Manual) 7.0 % (13.4-35.0) L 01/11/22 13:02 Reactive Lymphs % (Man) 0 % 01/11/22 13:02 Monocytes % (Manual) 5.0 % (0.0-7.3) 01/11/22 13:02 Eosinophils % (Manual) 11.0 % (0.0-4.3) H 01/11/22 13:02 Basophils % (Manual) 0 % (0.0-1.8) 01/11/22 13:02 Metamyelocytes % 0 % 01/11/22 13:02 Myelocytes % 0 % 01/11/22 13:02 Promyelocytes % 0 % 01/11/22 13:02 Blast Cells % 0 % 01/11/22 13:02 Nucleated RBC % Not Reportable 01/11/22 13:02 Seg Neutrophils # 7.3 K/mm3 (1.8-7.7) 01/20/22 23:06 Seg Neutrophils # Man 5.1 K/mm3 (1.8-7.7) 01/11/22 13:02 Band Neutrophils # 0.1 K/mm3 01/11/22 13:02 Lymphocytes # (Manual) 0.5 K/mm3 (1.2-5.4) L 01/11/22 13:02 Abs React Lymphs (Man) 0.0 K/mm3 01/11/22 13:02 Monocytes # (Manual) 0.3 K/mm3 (0.0-0.8) 01/11/22 13:02 Eosinophils # (Manual) 0.7 K/mm3 (0.0-0.4) H 01/11/22 13:02 Basophils # (Manual) 0.0 K/mm3 (0.0-0.1) 01/11/22 13:02 Metamyelocytes # 0.0 K/mm3 01/11/22 13:02 Myelocytes # 0.0 K/mm3 01/11/22 13:02 Promyelocytes # 0.0 K/mm3 01/11/22 13:02 Blast Cells # 0.0 K/mm3 01/11/22 13:02 WBC Morphology Not Reportable 01/11/22 13:02 Hypersegmented Neuts Not Reportable 01/11/22 13:02 Hyposegmented Neuts Not Reportable 01/11/22 13:02 Hypogranular Neuts Not Reportable 01/11/22 13:02 Smudge Cells Not Reportable 01/11/22 13:02 Toxic Granulation Not Reportable 01/11/22 13:02 Toxic Vacuolation Not Reportable 01/11/22 13:02 Dohle Bodies Not Reportable 01/11/22 13:02 Pelger-Huet Anomaly Not Reportable 01/11/22 13:02 Heri Rods Not Reportable 01/11/22 13:02 Platelet Estimate Consistent w auto 01/11/22 13:02 Clumped Platelets Not Reportable 01/11/22 13:02 Plt Clumps, EDTA Not Reportable 01/11/22 13:02 Large Platelets Not Reportable 01/11/22 13:02 Giant Platelets Not Reportable 01/11/22 13:02 Platelet Satelliting Not Reportable 01/11/22 13:02 Plt Morphology Comment Not Reportable 01/11/22 13:02 RBC Morphology Not Reportable 01/11/22 13:02 Dimorphic RBCs Not Reportable 01/11/22 13:02 Polychromasia Not Reportable 01/11/22 13:02 Hypochromasia 2+ 01/11/22 13:02 Poikilocytosis Not Reportable 01/11/22 13:02 Anisocytosis Not Reportable 01/11/22 13:02 Microcytosis Not Reportable 01/11/22 13:02 Macrocytosis 1+ 01/11/22 13:02 Spherocytes Not Reportable 01/11/22 13:02 Pappenheimer Bodies Not Reportable 01/11/22 13:02 Sickle Cells Not Reportable 01/11/22 13:02 Target Cells Not Reportable 01/11/22 13:02 Tear Drop Cells Not Reportable 01/11/22 13:02 Ovalocytes Not Reportable 01/11/22 13:02 Helmet Cells Not Reportable 01/11/22 13:02 [place] Bodies Not Reportable 01/11/22 13:02 [place] Rings Not Reportable 01/11/22 13:02 [place] Cells Not Reportable 01/11/22 13:02 Bite Cells Not Reportable 01/11/22 13:02 Crenated Cell Not Reportable 01/11/22 13:02 Elliptocytes Not Reportable 01/11/22 13:02 Acanthocytes (Spur) Not Reportable 01/11/22 13:02 Rouleaux Not Reportable 01/11/22 13:02 Hemoglobin C Crystals Not Reportable 01/11/22 13:02 Schistocytes Not Reportable 01/11/22 13:02 Malaria parasites Not Reportable 01/11/22 13:02 Jose Antonio Bodies Not Reportable 01/11/22 13:02 Hem Pathologist Commnt No 01/11/22 13:02 PT 15.8 Sec. (12.2-14.9) H 01/11/22 09:58 INR 1.13 (0.87-1.13) 01/11/22 09:58 Sodium 142 mmol/L (137-145) 01/19/22 04:21 Potassium 3.6 mmol/L (3.6-5.0) 01/19/22 04:21 Chloride 103.3 mmol/L (98-107) 01/19/22 04:21 Carbon Dioxide 30 mmol/L (22-30) 01/19/22 04:21 Anion Gap 12 mmol/L 01/19/22 04:21 BUN 13 mg/dL (9-20) 01/19/22 04:21 Creatinine 3.4 mg/dL (0.8-1.3) H 01/19/22 04:21 Estimated GFR 22 ml/min 01/19/22 04:21 BUN/Creatinine Ratio 4 % 01/19/22 04:21 Glucose 77 mg/dL (75-100) 01/19/22 04:21 POC Glucose 77 mg/dL (70-105) 01/25/22 07:44 Calcium 7.5 mg/dL (8.4-10.2) L 01/19/22 04:21 Phosphorus 6.80 mg/dL (2.5-4.5) H 01/16/22 04:07 Magnesium 1.90 mg/dL (1.7-2.3) 01/16/22 04:07 Total Bilirubin 0.30 mg/dL (0.1-1.2) 01/18/22 04:32 AST 15 units/L (5-40) 01/18/22 04:32 ALT 13 units/L (7-56) 01/18/22 04:32 Alkaline Phosphatase 53 units/L (35-129) 01/18/22 04:32 Total Protein 5.3 g/dL (6.3-8.2) L 01/18/22 04:32 Albumin 3.0 g/dL (3.9-5) L 01/18/22 04:32 Albumin/Globulin Ratio 1.3 % 01/18/22 04:32 Lipase 19 units/L (13-60) 01/11/22 09:58 SARS-CoV-2 (PCR) Negative (Negative) 01/19/22 14:45 Hepatitis A IgM Ab Non-reactive (NonReactive) 01/22/22 17:20 Hep Bs Antigen Non-reactive (Negative) 01/22/22 17:20 Hep B Core IgM Ab Non-reactive (NonReactive) 01/22/22 17:20 Hepatitis C Antibody Non-reactive (NonReactive) 01/22/22 17:20 Blood Type O POSITIVE 01/13/22 05:45 Antibody Screen Negative 01/13/22 05:45 Crossmatch See Detail 01/13/22 05:45 Breaux/IV: Voiding Method Bedpan Active Medications - Current Medications Current Medications: Generic Name Dose Route Start Last Admin Trade Name Carlos PRN Reason Stop Dose Admin Acetaminophen 650 mg 01/11/22 16:00 01/23/22 03:13 Acetaminophen 325 Mg Tab PO 650 mg Q4H PRN Administration Pain MILD(1-3)/Fever >100.5/ESQUIVEL Dextrose 50 ml 01/16/22 07:43 01/17/22 18:04 Dextrose 50% In Water (25gm) 50 Ml Syringe IV 10 ml Q30MIN PRN Administration Hypoglycemia Protocol Docusate Sodium 100 mg 01/22/22 11:00 01/25/22 09:30 Docusate Sodium 100 Mg Cap PO 100 mg BID CA Administration Epoetin Sushil-epbx 20,000 unit 01/23/22 12:00 01/25/22 12:19 Epoetin Sushil-Epbx 10,000 Unit/1 Ml Vial SUB-Q 20,000 unit JUANITO PRN Administration hemodialysis Hydralazine HCl 10 mg 01/16/22 07:45 01/20/22 21:57 Hydralazine 20 Mg/1 Ml Inj IV 10 mg Q4HR PRN Administration Hypertension Sodium Chloride 100 mls @ 999 mls/hr 01/19/22 23:03 Nacl 0.9% IV JUANITO PRN Hypotension Insulin Human Lispro 0 unit 01/18/22 16:30 01/25/22 08:51 Insulin Lispro 100 Unit/Ml SUB-Q Not Given ACHS [facility] Protocol Ondansetron HCl 4 mg 01/11/22 15:30 01/22/22 12:34 Ondansetron 4 Mg/2 Ml Inj IV 4 mg Q8H PRN Administration Nausea And Vomiting Ondansetron HCl 8 mg 01/24/22 11:54 01/24/22 13:20 Ondansetron 8 Mg Odt Tab PO 8 mg Q8H PRN Administration Nausea And Vomiting Pantoprazole Sodium 40 mg 01/20/22 10:00 01/25/22 09:30 Pantoprazole 40 Mg Tab PO 40 mg BID CA Administration Sodium Chloride 10 ml 01/11/22 22:00 01/25/22 09:30 Sodium Chloride 0.9% 10 Ml Flush Syringe IV 10 ml BID CA Administration Sodium Chloride 10 ml 01/11/22 16:00 Sodium Chloride 0.9% 10 Ml Flush Syringe IV PRN PRN LINE FLUSH Nutrition/Malnutrition Assess - Dietary Evaluation Nutrition/Malnutrition Findings: Nutrition Notes Start: 01/12/22 15:00 Freq: Status: Active Protocol: Document 01/19/22 12:34 YNES (Rec: 01/19/22 12:43 YNES [id number]) Nutrition Notes Initial or Follow up Reassessment Current Diagnosis CKD (stage V CKD),Coronary Artery Disease,Diabetes, Hypertension Other Pertinent Diagnosis ESRD+HD, Anemia, s/p GI Bleed, Diverticulosis. Current Diet GI Soft Diet (since D 01/18). Labs/Tests 01/19: Crea 3.4, Ca 7.5. Pertinent Medications 01/19: Nutritionally uremarkable. Height 5 ft 8 in Weight 61.6 kg [place] Body Weight (kg) 70.00 BMI 20.6 Weight change and time frame 7.169 Kg body weight gain reported in 1 week. Weight Status Appropriate Subjective/Other Information RD consult for routine F/U on dietary advancement. Diet advanced to PO, No reports on Pt's PO intake of meals at the time, will assess at F/U. Pt is on Nasal Cannula, O2 saturation @ 98%, according to Physical Assessment History notes. Pt is incontinent, according to Physical Assessment History notes. Pt presents caries and has missing teeth, according to Physical Assessment History notes. Colonoscopy on 01/17 found diverticuli throughout the colon, but no evidence of active bleeding, according to Progress notes. Pt is medically stable and redy for discharge to SNF, according to Progress notes. Percent of energy/protein needs met: Prescribed GI Soft Diet provides for energy/protein needs (2,000 Kcal/82 g) during LOS. Burn Absent Trauma Absent GI Symptoms Other Food Allergy No Skin Integrity/Comment Unspecified area of concern. Minimum of two criteria No Fluid Accumulation N/A Reduced Fence Supervisor Strength N/A (non-severe) Protein-Calorie Malnutrition N\A #2 Nutrition Diagnosis Altered GI function Comments: Colonoscopy on 01/17 found diverticuli throughout the colon, but no evidence of active bleeding, according to Progress notes. Diagnosis Progress(for reassessment Improved documentation) #1 Nutrition Diagnosis Underweight Diagnosis Progress(for reassessment Continues documentation) Is patient on ventilator? No Is Patient Ambulatory and/or Out of Bed No REE-([facility]-confined to bed) 1673.808 Kcal/Kg value to use for calculation 30 Approximate Energy Requirements Using 1848 kcal/Kg Calculation Used for Recommendations Kcal/kg Additional Notes Protein: >1.2 g/Kg ABW; >65 g/ day. Fluids: 1 ml/Kcal, or as per MD. Nutrition Intervention Change Diet Order: Continue GI Soft Diet as tolerated. Goal #1 Facilitate PO intake of meals with elemental, textural, or mechanical modification during LOS. Follow-Up By: 01/26/22 Additional Comments Continue monitoring food tolerance, %PO intake of meals , and BM.
[2022-01-26] MEDS: INSULIN LISPRO 100 UNIT/ML SUB-Q SCH ×4 (08:00→22:21)
--- NOTE | 2022-01-26 09:03 | Progress Note ---
Assessment and Plan 1. ESRD: Patient is on maintenance hemodialysis, MWF schedule. Hemodialysis: 01/13, 01/16, 01/18, 01/19(UF only), 01/20, 01/21(UF only), 01/23, 01/25. 2. FEN: Volume overload, UF with HD as tolerated. Limit fluid intake. Hyperkalemia, improved with HD. Monitor lytes and volume status. 3. 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 Collaterals presumably chronic, gallstones. S/p EGD and Colonoscopy. Suspect diverticular, recurrent episodes requiring several units of blood. Seen by General Surgery. Epogen with HD. PPI, trend CBC. 4. Acute hypoxic respiratory failure: Supplemental oxygen as needed. Volume control thru HD. Monitor. 5. DM with Hypoglycemia: Monitor. 6. Hypertension: Adjust meds as needed. Volume control. Monitor BP. Subjective: Patient was seen and examined at the bedside. Doing ok. Examination: General appearance: well-developed, appears stated age, not in distress HEENT: no icterus Neck: trachea midline Respiratory: ctab Heart: S1S2, regular, no murmur Abdomen: soft, bowel sounds heard, NT, no palpable mass Integumentary: LE stasis changes noted Neurologic: conversing, able to move extremities Ext: trace edema of Exts Hemodialysis access: R IJ tunnel catheter Subjective Date of service: 01/26/22 Principal diagnosis: End-stage renal disease, gastrointestinal bleeding Objective - Vital Signs Vital signs: Vital Signs - 12hr 01/25/22 01/25/22 22:00 23:12 Temperature 98.9 F Pulse Rate 94 H Respiratory 20 Rate Blood Pressure 137/76 O2 Sat by Pulse 99 99 Oximetry - Lab 01/20/22 23:06 01/19/22 04:21 Most recent lab results Calcium 7.5 mg/dL (8.4-10.2) L 01/19/22 04:21 Phosphorus 6.80 mg/dL (2.5-4.5) H 01/16/22 04:07 Magnesium 1.90 mg/dL (1.7-2.3) 01/16/22 04:07 Medications & Allergies - Medications Allergies/Adverse Reactions: Allergies No Known Allergies Allergy (Verified 01/11/22 09:20) Home Medications: Home Medications Medication Instructions Recorded Confirmed Last Taken Type Tamsulosin [Flomax] 0.4 mg PO QDAY #30 cap 01/07/20 01/16/22 Unknown Rx Bacitracin Zinc Oint [Antibiotic 1 applicatio TP BID #1 tube 03/21/20 01/16/22 Unknown Rx Oint] Benzonatate [Tessalon Perles] 100 mg PO Q8HR PRN #20 capsule 03/21/20 01/16/22 Unknown Rx Acetaminophen [Tylenol] 325 mg PO Q6H PRN 01/16/22 01/16/22 Unknown History Atorvastatin [Lipitor] 80 mg PO QHS 01/16/22 01/16/22 Unknown History Calcium Acetate [Phoslo] 667 mg PO QDAY 01/16/22 01/16/22 Unknown History Ergocalciferol (Vitamin D2) 1,250 mcg PO QDAY 01/16/22 01/16/22 Unknown History [Drisdol] Glycerin/Propylene Glycol 30 ml OP QDAY PRN 01/16/22 01/16/22 Unknown History [Artificial Tears Drops] Insulin Lispro [Admelog] See Protocol SQ ACHS 01/16/22 01/16/22 Unknown History Lactobacillus Acidophilus 0.5 mg PO QDAY 01/16/22 01/16/22 Unknown History [Acidophilus Probiotic] Lactulose [Cephulac] 20 gm PO BID PRN 01/16/22 01/16/22 Unknown History Mag Hydrox/Aluminum Hyd/Simeth 10 ml PO QDAY 01/16/22 01/16/22 Unknown History [Mylanta Maximum Strength Pkt] Melatonin [Melatonin 5MG CAP] 5 mg PO QHS 01/16/22 01/16/22 Unknown History Torsemide [Demadex] 100 mg PO QDAY 01/16/22 01/16/22 Unknown History Vit B Comp No.3/Folic/C/Biotin 1 tab PO QDAY 01/16/22 01/16/22 Unknown History [Prisca-Theodore Rx Tablet] megestroL [Megestrol] 40 mg PO QDAY 01/16/22 01/16/22 Unknown History polyethylene glycoL 3350 [Miralax 17 gm PO BID PRN 01/16/22 01/16/22 Unknown History 3350] Amiodarone [Cordarone 200 MG TAB] 200 mg PO QDAY #30 tab 01/19/22 Unknown Rx Pantoprazole [Protonix TAB] 40 mg PO BID #60 tablet 01/19/22 Unknown Rx amLODIPine 10 mg PO QDAY #30 tab 01/19/22 Unknown Rx carvediloL [Coreg] 6.25 mg PO BID #60 tab 01/19/22 Unknown Rx Active Medications: Generic Name Dose Route Start Last Admin Trade Name Freq PRN Reason Stop Dose Admin Acetaminophen 650 mg 01/11/22 16:00 01/23/22 03:13 Acetaminophen 325 Mg Tab PO 650 mg Q4H PRN Administration Pain MILD(1-3)/Fever >100.5/ESQUIVEL Dextrose 50 ml 01/16/22 07:43 01/17/22 18:04 Dextrose 50% In Water (25gm) 50 Ml Syringe IV 10 ml Q30MIN PRN Administration Hypoglycemia Protocol Docusate Sodium 100 mg 01/22/22 11:00 01/25/22 21:19 Docusate Sodium 100 Mg Cap PO 100 mg BID CA Administration Epoetin Sushil-epbx 20,000 unit 01/23/22 12:00 01/25/22 12:19 Epoetin Sushil-Epbx 10,000 Unit/1 Ml Vial SUB-Q 20,000 unit JUANITO PRN Administration hemodialysis Hydralazine HCl 10 mg 01/16/22 07:45 01/20/22 21:57 Hydralazine 20 Mg/1 Ml Inj IV 10 mg Q4HR PRN Administration Hypertension Sodium Chloride 100 mls @ 999 mls/hr 01/19/22 23:03 Nacl 0.9% IV JUANITO PRN Hypotension Insulin Human Lispro 0 unit 01/18/22 16:30 01/25/22 21:23 Insulin Lispro 100 Unit/Ml SUB-Q Not Given ACHS [facility] Protocol Ondansetron HCl 4 mg 01/11/22 15:30 01/22/22 12:34 Ondansetron 4 Mg/2 Ml Inj IV 4 mg Q8H PRN Administration Nausea And Vomiting Ondansetron HCl 8 mg 01/24/22 11:54 01/24/22 13:20 Ondansetron 8 Mg Odt Tab PO 8 mg Q8H PRN Administration Nausea And Vomiting Pantoprazole Sodium 40 mg 01/20/22 10:00 01/25/22 21:19 Pantoprazole 40 Mg Tab PO 40 mg BID CA Administration Sodium Chloride 10 ml 01/11/22 22:00 01/25/22 21:21 Sodium Chloride 0.9% 10 Ml Flush Syringe IV Not Given BID CA Sodium Chloride 10 ml 01/11/22 16:00 Sodium Chloride 0.9% 10 Ml Flush Syringe IV PRN PRN LINE FLUSH
[2022-01-26] MEDS: PANTOPRAZOLE 40 MG TAB PO SCH ×2 (12:00→22:26)
[2022-01-26] MEDS: DOCUSATE SODIUM 100 MG CAP PO SCH ×3 (12:00→22:21)
--- NOTE | 2022-01-26 12:41 | Progress Note ---
Assessment and Plan Assessment and plan: Assessment and Plan Assessment and plan: This is a 62-year-old male with ESRD on HD, HTN, CABG x2, aortic dissection s/p thoracic aortic stent, BPH and DM admitted with GI bleeding ICU course to date: 01/15: Patient was transferred to ICU for closer monitoring yesterday afternoon after second episode of GI bleeding was noted and he had a repeat CTA abdomen/pelvis. Patient's hemoglobin dropped to 5 yesterday and was given 2 units PRBC. GI recommends obtaining another CTA if recurrence of GI bleeding noted. 01/16: Patient will get HD today and possibly 25 DC tomorrow. Added hydralazine as needed for hypertension. Started D10 drip due to persistent hypoglycemia. 01/17: Patient remains stable, no s/s of any active bleeding overnight. H&H is stable. Plan for repeat Colonoscopy today by GI. Continue D10w for hypoglycemia and trend CBC 01/18: s/p repeat colonoscopy, diverticuli noted throughout the colon but no evidence of any active bleeding. No bloody stools reported for over 48hrs, H&H and vital signs are stable. GI and general surgery recommendations noted. If bleeding reoccur patient's only option is a total colectomy since patient is not a candidate for any angiography intervention due to history of aortic dissecti on. Continue PPI, and continue to trend CBC. Advance diet as tolerated, will D/C D10w gtt if patient tolerates PO intake. Continue BG check ACHS, avoid hypoglycemia. Plan for HD today per Nephro. D/W [facility] patient is stable for transfer to Telemetry. 01/19: Patient seen and examined clinically stable, discussed with surgery and also with all the specialties involved in the case.reviewed GI and Surgery notes. Patient not a candidate for any IR procedure. Surgery only option and awaiting next bleed if it happens. Even with bleeding in the past, hemodynamically patient has been stable. Also discussed with the sister and explained the clinical condition of findings she verbalized understanding plan at this time is for discharge of patient back to the facility 01/20: Late entry, awaiting discharge to facility. 01/21: Patient seen and examined, resting comfortable. No new compliant. No new Bleeding reported. H/H stable. 01/22: No new bleeding, awaiting placement, continue supportive care. 01/23: Continue supportive care. No further bleeding noted. Anticipate discharge in a.m. if placement is obtained In summary of visit the patient came in with rectal bleed requiring transfusion. GI evaluated the patient also diverticulosis. Surgery evaluated the patient no planned intervention at this time but if patient rebleeds will need a total colectomy. In the meantime patient is currently waiting for placement 01/24: Continue supportive care. Complaints of abdominal pain and some nausea t his morning. Change Zofran to ODT. Continue pantoprazole. Discussed with case management regarding placement today. Case management will be following up with [facility] (where pt presented from) as to why patient cannot return back to facility. 01/25: No acute overnight issues. Awaiting placement. Discussed with CM. 01/26: No overnight events. Awaiting placement. Discussed with CM on rounds this AM. plan [facility]+dialysis center vs home w/hhc. Assessment and Plan GI: LGIB, moderate protein calorie malnutrition/ Diverticulosis -GI, IR, surgery consulted, appreciate recommendations -Abdomen pelvis CT showed previous placement of thoracic aortic stent graft, 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 Collaterals presumably chronic, gallstones -S/p EGD and 01/12 which showed normal esophagus, mild erythematous mucosa in the antrum of of the body, biopsies obtained, normal duodenum, biopsies obtained and no source of GI bleeding found -S/p colonoscopy on 01/12 due to feeling poor quality however likely diverticular bleed -01/13 CTA abdomen/pelvis showed mild diverticular disease throughout the colon with endoluminal opacification of nearly all of the colon suggesting oral contrast however patient did have a history of oral contrast administration in addition To saturations would include carious excretion of contrast from the ga llbladder however this appears out of proportion therefore hemorrhage should be considered, no clear source is identified, redemonstrated vascular disease without change -01/15 CTA abdomen/pelvis previous placement of thoracic aortic stent graft with 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 See report for details -General surgery recommendations noted. -If bleeding reoccur patient's only option is a total colectomy since patient is not a candidate for any angiography intervention due to history of aortic dissection. -Continue PPI, and continue to trend CBC -Advance diet as tolerated : ESRD on HD, h/o BPH -Nephrology consulted, appreciate recommendations -HD per nephrology -Monitor intake and output -Renally dose medications -Avoid nephrotoxic medications -Trend BMP Cardiac: h/o HTN, CABG x2, thoracic aortic aneurysm s/p repair -Hydralazine prn -Blood pressure monitoring per protocol Respiratory: Acute hypoxic respiratory failure -Supplemental oxygen as needed -SPO2 monitor per protocol -Pulmonary hygiene Endo: Hypoglycemia, h/o DM -probably due to NPO status -On D10w gtt -Plan to advance diet as tolerated -will D/C D10w gtt if patient tolerates PO intake. -Continue BG check ACHS -avoid hypoglycemia -Continue hypoglycemic protocol Heme: Acute on chronic anemia of chronic disease, GIB -Presented with GI bleed -Multiple episodes of GI bleed noted throughout stay -S/p 5 unit prbc -h/h q 8 hours -Trend CBC -Transfuse hemoglobin less than 7 Disposition: [address] [place] [address] Final Discharge Diagnosis (Prints w/discharge instructions): Acute on chronic anemia of chronic disease, GIB. Diverticulosis. ESRD on HD, h/o BPH. HTN, CABG x2, thoracic aortic aneurysm s/p repair. Acute hypoxic respiratory failure. Hypoglycemia, h/o DM History Interval history: No acute complaints on bedside encounter this AM. Anxious to go back to facility Hospitalist Physical - Physical exam Narrative exam: - Physical exam Narrative exam: General appearance: Present: no acute distress, well-nourished, - EENT Eyes: Present: PERRL ENT: hearing intact - Neck Neck: Present: normal ROM - Respiratory Respiratory effort: normal Respiratory: left: wheezing, bilateral: diminished - Cardiovascular Rhythm: regular Heart Sounds: Present: S1 & S2 - Extremities Extremities: no ischemia, pulses intact, pulses symmetrical Extremity abnormal: edema - Peripheral Assessment Generalized Edema Type: Non-pitting Edema Degree: 2+ Capillary Refill: < 3 seconds Skin Temperature: Warm Peripheral Pulses: within normal limits - Abdominal General gastrointestinal: soft, non-distended, normal bowel sounds - Integumentary Integumentary: Present: clear, warm, dry - Psychiatric Psychiatric: appropriate mood/affect, cooperative - Neurologic Neurologic: CNII-XII intact, moves all extremities - Allied Health Allied health notes reviewed: nursing, case management - Constitutional Vitals: Temp Pulse Resp BP Pulse Ox 98.0 F 88 16 144/70 99 01/26/22 11:00 01/26/22 11:00 01/26/22 11:00 01/26/22 11:00 01/26/22 11:00 General appearance: Present: no acute distress, well-nourished, obese Results - Labs CBC & Chem 7: 01/20/22 23:06 01/19/22 04:21 Labs: Laboratory Last Values WBC 10.2 K/mm3 (4.5-11.0) 01/20/22 23:06 RBC 3.00 M/mm3 (3.65-5.03) L 01/20/22 23:06 Hgb 9.1 gm/dl (11.8-15.2) L 01/20/22 23:06 Hct 29.3 % (35.5-45.6) L 01/20/22 23:06 MCV 98 fl (84-94) H 01/20/22 23:06 MCH 30 pg (28-32) 01/20/22 23:06 MCHC 31 % (32-34) L 01/20/22 23:06 RDW 18.6 % (13.2-15.2) H 01/20/22 23:06 Plt Count 135 K/mm3 (140-440) L 01/20/22 23:06 Lymph % (Auto) 10.2 % (13.4-35.0) L 01/20/22 23:06 [place] % (Auto) 9.9 % (0.0-7.3) H 01/20/22 23:06 Eos % (Auto) 7.2 % (0.0-4.3) H 01/20/22 23:06 Baso % (Auto) 0.5 % (0.0-1.8) 01/20/22 23:06 Lymph # (Auto) 1.0 K/mm3 (1.2-5.4) L 01/20/22 23:06 [place] # (Auto) 1.0 K/mm3 (0.0-0.8) H 01/20/22 23:06 Eos # (Auto) 0.7 K/mm3 (0.0-0.4) H 01/20/22 23:06 Baso # (Auto) 0.0 K/mm3 (0.0-0.1) 01/20/22 23:06 Add Manual Diff Complete 01/11/22 13:02 Total Counted 100 01/11/22 13:02 Seg Neutrophils % 72.2 % (40.0-70.0) H 01/20/22 23:06 Seg Neuts % (Manual) 76.0 % (40.0-70.0) H 01/11/22 13:02 Band Neutrophils % 1.0 % 01/11/22 13:02 Lymphocytes % (Manual) 7.0 % (13.4-35.0) L 01/11/22 13:02 Reactive Lymphs % (Man) 0 % 01/11/22 13:02 Monocytes % (Manual) 5.0 % (0.0-7.3) 01/11/22 13:02 Eosinophils % (Manual) 11.0 % (0.0-4.3) H 01/11/22 13:02 Basophils % (Manual) 0 % (0.0-1.8) 01/11/22 13:02 Metamyelocytes % 0 % 01/11/22 13:02 Myelocytes % 0 % 01/11/22 13:02 Promyelocytes % 0 % 01/11/22 13:02 Blast Cells % 0 % 01/11/22 13:02 Nucleated RBC % Not Reportable 01/11/22 13:02 Seg Neutrophils # 7.3 K/mm3 (1.8-7.7) 01/20/22 23:06 Seg Neutrophils # Man 5.1 K/mm3 (1.8-7.7) 01/11/22 13:02 Band Neutrophils # 0.1 K/mm3 01/11/22 13:02 Lymphocytes # (Manual) 0.5 K/mm3 (1.2-5.4) L 01/11/22 13:02 Abs React Lymphs (Man) 0.0 K/mm3 01/11/22 13:02 Monocytes # (Manual) 0.3 K/mm3 (0.0-0.8) 01/11/22 13:02 Eosinophils # (Manual) 0.7 K/mm3 (0.0-0.4) H 01/11/22 13:02 Basophils # (Manual) 0.0 K/mm3 (0.0-0.1) 01/11/22 13:02 Metamyelocytes # 0.0 K/mm3 01/11/22 13:02 Myelocytes # 0.0 K/mm3 01/11/22 13:02 Promyelocytes # 0.0 K/mm3 01/11/22 13:02 Blast Cells # 0.0 K/mm3 01/11/22 13:02 WBC Morphology Not Reportable 01/11/22 13:02 Hypersegmented Neuts Not Reportable 01/11/22 13:02 Hyposegmented Neuts Not Reportable 01/11/22 13:02 Hypogranular Neuts Not Reportable 01/11/22 13:02 Smudge Cells Not Reportable 01/11/22 13:02 Toxic Granulation Not Reportable 01/11/22 13:02 Toxic Vacuolation Not Reportable 01/11/22 13:02 Dohle Bodies Not Reportable 01/11/22 13:02 Pelger-Huet Anomaly Not Reportable 01/11/22 13:02 Heri Rods Not Reportable 01/11/22 13:02 Platelet Estimate Consistent w auto 01/11/22 13:02 Clumped Platelets Not Reportable 01/11/22 13:02 Plt Clumps, EDTA Not Reportable 01/11/22 13:02 Large Platelets Not Reportable 01/11/22 13:02 Giant Platelets Not Reportable 01/11/22 13:02 Platelet Satelliting Not Reportable 01/11/22 13:02 Plt Morphology Comment Not Reportable 01/11/22 13:02 RBC Morphology Not Reportable 01/11/22 13:02 Dimorphic RBCs Not Reportable 01/11/22 13:02 Polychromasia Not Reportable 01/11/22 13:02 Hypochromasia 2+ 01/11/22 13:02 Poikilocytosis Not Reportable 01/11/22 13:02 Anisocytosis Not Reportable 01/11/22 13:02 Microcytosis Not Reportable 01/11/22 13:02 Macrocytosis 1+ 01/11/22 13:02 Spherocytes Not Reportable 01/11/22 13:02 Pappenheimer Bodies Not Reportable 01/11/22 13:02 Sickle Cells Not Reportable 01/11/22 13:02 Target Cells Not Reportable 01/11/22 13:02 Tear Drop Cells Not Reportable 01/11/22 13:02 Ovalocytes Not Reportable 01/11/22 13:02 Helmet Cells Not Reportable 01/11/22 13:02 Phelps-Portal Bodies Not Reportable 01/11/22 13:02 Winn Rings Not Reportable 01/11/22 13:02 Arianna Cells Not Reportable 01/11/22 13:02 Bite Cells Not Reportable 01/11/22 13:02 Crenated Cell Not Reportable 01/11/22 13:02 Elliptocytes Not Reportable 01/11/22 13:02 Acanthocytes (Spur) Not Reportable 01/11/22 13:02 Rouleaux Not Reportable 01/11/22 13:02 Hemoglobin C Crystals Not Reportable 01/11/22 13:02 Schistocytes Not Reportable 01/11/22 13:02 Malaria parasites Not Reportable 01/11/22 13:02 Jose Antonio Bodies Not Reportable 01/11/22 13:02 Hem Pathologist Commnt No 01/11/22 13:02 PT 15.8 Sec. (12.2-14.9) H 01/11/22 09:58 INR 1.13 (0.87-1.13) 01/11/22 09:58 Sodium 142 mmol/L (137-145) 01/19/22 04:21 Potassium 3.6 mmol/L (3.6-5.0) 01/19/22 04:21 Chloride 103.3 mmol/L (98-107) 01/19/22 04:21 Carbon Dioxide 30 mmol/L (22-30) 01/19/22 04:21 Anion Gap 12 mmol/L 01/19/22 04:21 BUN 13 mg/dL (9-20) 01/19/22 04:21 Creatinine 3.4 mg/dL (0.8-1.3) H 01/19/22 04:21 Estimated GFR 22 ml/min 01/19/22 04:21 BUN/Creatinine Ratio 4 % 01/19/22 04:21 Glucose 77 mg/dL (75-100) 01/19/22 04:21 POC Glucose 79 mg/dL (70-105) 01/26/22 07:36 Calcium 7.5 mg/dL (8.4-10.2) L 01/19/22 04:21 Phosphorus 6.80 mg/dL (2.5-4.5) H 01/16/22 04:07 Magnesium 1.90 mg/dL (1.7-2.3) 01/16/22 04:07 Total Bilirubin 0.30 mg/dL (0.1-1.2) 01/18/22 04:32 AST 15 units/L (5-40) 01/18/22 04:32 ALT 13 units/L (7-56) 01/18/22 04:32 Alkaline Phosphatase 53 units/L (35-129) 01/18/22 04:32 Total Protein 5.3 g/dL (6.3-8.2) L 01/18/22 04:32 Albumin 3.0 g/dL (3.9-5) L 01/18/22 04:32 Albumin/Globulin Ratio 1.3 % 01/18/22 04:32 Lipase 19 units/L (13-60) 01/11/22 09:58 SARS-CoV-2 (PCR) Negative (Negative) 01/19/22 14:45 Hepatitis A IgM Ab Non-reactive (NonReactive) 01/22/22 17:20 Hep Bs Antigen Non-reactive (Negative) 01/22/22 17:20 Hep B Core IgM Ab Non-reactive (NonReactive) 01/22/22 17:20 Hepatitis C Antibody Non-reactive (NonReactive) 01/22/22 17:20 Blood Type O POSITIVE 01/13/22 05:45 Antibody Screen Negative 01/13/22 05:45 Crossmatch See Detail 01/13/22 05:45 Breuax/IV: Voiding Method Incontinent Active Medications - Current Medications Current Medications: Generic Name Dose Route Start Last Admin Trade Name Freq PRN Reason Stop Dose Admin Acetaminophen 650 mg 01/11/22 16:00 01/23/22 03:13 Acetaminophen 325 Mg Tab PO 650 mg Q4H PRN Administration Pain MILD(1-3)/Fever >100.5/ESQUIVEL Dextrose 50 ml 01/16/22 07:43 01/17/22 18:04 Dextrose 50% In Water (25gm) 50 Ml Syringe IV 10 ml Q30MIN PRN Administration Hypoglycemia Protocol Docusate Sodium 100 mg 01/22/22 11:00 01/25/22 21:19 Docusate Sodium 100 Mg Cap PO 100 mg BID CA Administration Epoetin Sushil-epbx 20,000 unit 01/23/22 12:00 01/25/22 12:19 Epoetin Sushil-Epbx 10,000 Unit/1 Ml Vial SUB-Q 20,000 unit JUANITO PRN Administration hemodialysis Hydralazine HCl 10 mg 01/16/22 07:45 01/20/22 21:57 Hydralazine 20 Mg/1 Ml Inj IV 10 mg Q4HR PRN Administration Hypertension Sodium Chloride 100 mls @ 999 mls/hr 01/19/22 23:03 Nacl 0.9% IV JUANITO PRN Hypotension Insulin Human Lispro 0 unit 01/18/22 16:30 01/25/22 21:23 Insulin Lispro 100 Unit/Ml SUB-Q Not Given ACHS [facility] Protocol Ondansetron HCl 4 mg 01/11/22 15:30 01/22/22 12:34 Ondansetron 4 Mg/2 Ml Inj IV 4 mg Q8H PRN Administration Nausea And Vomiting Ondansetron HCl 8 mg 01/24/22 11:54 01/24/22 13:20 Ondansetron 8 Mg Odt Tab PO 8 mg Q8H PRN Administration Nausea And Vomiting Pantoprazole Sodium 40 mg 01/20/22 10:00 01/25/22 21:19 Pantoprazole 40 Mg Tab PO 40 mg BID CA Administration Sodium Chloride 10 ml 01/11/22 22:00 01/25/22 21:21 Sodium Chloride 0.9% 10 Ml Flush Syringe IV Not Given BID CA Sodium Chloride 10 ml 01/11/22 16:00 Sodium Chloride 0.9% 10 Ml Flush Syringe IV PRN PRN LINE FLUSH Nutrition/Malnutrition Assess - Dietary Evaluation Nutrition/Malnutrition Findings: Nutrition Notes Start: 01/12/22 15:00 Freq: Status: Active Protocol: Document 01/19/22 12:34 YNES (Rec: 01/19/22 12:43 YNES [id number]) Nutrition Notes Initial or Follow up Reassessment Current Diagnosis CKD (stage V CKD),Coronary Artery Disease,Diabetes, Hypertension Other Pertinent Diagnosis ESRD+HD, Anemia, s/p GI Bleed, Diverticulosis. Current Diet GI Soft Diet (since D 01/18). Labs/Tests 01/19: Crea 3.4, Ca 7.5. Pertinent Medications 01/19: Nutritionally uremarkable. Height 5 ft 8 in Weight 61.6 kg [place] Body Weight (kg) 70.00 BMI 20.6 Weight change and time frame 7.169 Kg body weight gain reported in 1 week. Weight Status Appropriate Subjective/Other Information RD consult for routine F/U on dietary advancement. Diet advanced to PO, No reports on Pt's PO intake of meals at the time, will assess at F/U. Pt is on Nasal Cannula, O2 saturation @ 98%, according to Physical Assessment History notes. Pt is incontinent, according to Physical Assessment History notes. Pt presents caries and has missing teeth, according to Physical Assessment History notes. Colonoscopy on 01/17 found diverticuli throughout the colon, but no evidence of active bleeding, according to Progress notes. Pt is medically stable and redy for discharge to SNF, according to Progress notes. Percent of energy/protein needs met: Prescribed GI Soft Diet provides for energy/protein needs (2,000 Kcal/82 g) during LOS. Burn Absent Trauma Absent GI Symptoms Other Food Allergy No Skin Integrity/Comment Unspecified area of concern. Minimum of two criteria No Fluid Accumulation N/A Reduced [employer] Strength N/A (non-severe) Protein-Calorie Malnutrition N\A #2 Nutrition Diagnosis Altered GI function Comments: Colonoscopy on 01/17 found diverticuli throughout the colon, but no evidence of active bleeding, according to Progress notes. Diagnosis Progress(for reassessment Improved documentation) #1 Nutrition Diagnosis Underweight Diagnosis Progress(for reassessment Continues documentation) Is patient on ventilator? No Is Patient Ambulatory and/or Out of Bed No REE-([facility]-confined to bed) 1673.808 Kcal/Kg value to use for calculation 30 Approximate Energy Requirements Using 1848 kcal/Kg Calculation Used for Recommendations Kcal/kg Additional Notes Protein: >1.2 g/Kg ABW; >65 g/ day. Fluids: 1 ml/Kcal, or as per MD. Nutrition Intervention Change Diet Order: Continue GI Soft Diet as tolerated. Goal #1 Facilitate PO intake of meals with elemental, textural, or mechanical modification during LOS. Follow-Up By: 01/26/22 Additional Comments Continue monitoring food tolerance, %PO intake of meals , and BM.
--- NOTE | 2022-01-26 14:04 | Discharge Summary ---
Providers - Providers Date of Admission: 01/11/22 15:12 Date of discharge: 01/26/22 Attending physician: ANI MERINO MD 01/11/22 15:36 Consult to Physician [CONS] Routine Comment: Consulting Provider: DENILSON CUNNINGHAM Physician Instructions: Reason For Exam: Aortic Dissection--old 01/11/22 16:11 Consult to Physician [CONS] Routine Comment: Consulting Provider: NETO CHOW Physician Instructions: Reason For Exam: GI Bleed 01/12/22 13:42 Occupational Therapy Evaluate and Treat [CONS] Stat Comment: Eval and Treat Reason For Exam: Occupational Therapy Physical Therapy Evaluation and Treat [CONS] Stat Comment: Eval and Treat Reason For Exam: Physical Therapy 01/15/22 15:55 Consult to Physician [CONS] Routine Comment: called answ. serv. /esequiel Consulting Provider: ZAIRE MIRAMONTES Physician Instructions: Reason For Exam: Recurrent diverticular bleed, no source identified Primary care physician: [employer] Hospitalization Reason for admission: rectal bleeding Condition: Stable Hospital course: HPI: 61-year-old -[place] male with history of end-stage renal disease, hypertension and BPH and diabetes comes in for lower GI bleed since a.m. patient had 2 episodes of lower GI bleed. One was moderate and the second 1 is very small. Black stools. No abdominal pain. No exacerbating or relieving factors. Patient apparently took NSAIDs for couple days. ICU course to date: 01/15: Patient was transferred to ICU for closer monitoring yesterday afternoon after second episode of GI bleeding was noted and he had a repeat CTA abdomen/pelvis. Patient's hemoglobin dropped to 5 yesterday and was given 2 units PRBC. GI recommends obtaining another CTA if recurrence of GI bleeding noted. 01/16: Patient will get HD today and possibly 25 DC tomorrow. Added hydralazine as needed for hypertension. Started D10 drip due to persistent hypoglycemia. 01/17: Patient remains stable, no s/s of any active bleeding overnight. H&H is stable. Plan for repeat Colonoscopy today by GI. Continue D10w for hypoglycemia and trend CBC 01/18: s/p repeat colonoscopy, diverticuli noted throughout the colon but no evidence of any active bleeding. No bloody stools reported for over 48hrs, H&H and vital signs are stable. GI and general surgery recommendations noted. If bleeding reoccur patient's only option is a total colectomy since patient is not a candidate for any angiography intervention due to history of aortic dissec tion. Continue PPI, and continue to trend CBC. Advance diet as tolerated, will D/C D10w gtt if patient tolerates PO intake. Continue BG check ACHS, avoid hypoglycemia. Plan for HD today per Nephro. D/W CCM patient is stable for transfer to Telemetry. 01/19: Patient seen and examined clinically stable, discussed with surgery and also with all the specialties involved in the case.reviewed GI and Surgery notes. Patient not a candidate for any IR procedure. Surgery only option and awaiting next bleed if it happens. Even with bleeding in the past, hemodynamically patient has been stable. Also discussed with the sister and explained the clinical condition of findings she verbalized understanding plan at this time is for discharge of patient back to the facility 01/20: Late entry, awaiting discharge to facility. 01/21: Patient seen and examined, resting comfortable. No new compliant. No new Bleeding reported. H/H stable. 01/22: No new bleeding, awaiting placement, continue supportive care. 01/23: Continue supportive care. No further bleeding noted. Anticipate discharge in a.m. if placement is obtained In summary of visit the patient came in with rectal bleed requiring transfusion. GI evaluated the patient also diverticulosis. Surgery evaluated the patient no planned intervention at this time but if patient rebleeds will need a total colectomy. In the meantime patient is currently waiting for placement 01/24: Continue supportive care. Complaints of abdominal pain and some nausea this morning. Change Zofran to ODT. Continue pantoprazole. Discussed with case management regarding placement today. Case management will be following up with [facility] (where pt presented from) as to why patient cannot return back to facility. 01/25: No acute overnight issues. Awaiting placement. Discussed with CM. 01/26: No overnight events. Awaiting placement. Discussed with CM on rounds this AM. plan [facility]dialysis center vs home w/hhc. Discharge pending placement. Awaiting facility review of financial documents per CM. Discharge medications: amlodipine, amiodrone, coreg, protonix. Assessment and Plan GI: Lower gastrointestinal bleed (resolved), moderate protein calorie malnutrition, Diverticulosis -GI, IR, surgery consulted -Abdomen pelvis CT showed previous placement of thoracic aortic stent graft, 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 Collaterals presumably chronic, gallstones -S/p EGD and 01/12 which showed normal esophagus, mild erythematous mucosa in the antrum of of the body, biopsies obtained, normal duodenum, biopsies obtained and no source of GI bleeding found -S/p colonoscopy on 01/12 due to feeling poor quality however likely diverticular bleed -01/13 CTA abdomen/pelvis showed mild diverticular disease throughout the colon with endoluminal opacification of nearly all of the colon suggesting oral contrast however patient did have a history of oral contrast administration in addition To saturations would include carious excretion of contrast from the gallbladder however this appears out of proportion therefore hemorrhage should be considered, no clear source is identified, redemonstrated vascular disease without change -01/15 CTA abdomen/pelvis previous placement of thoracic aortic stent graft with 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 See report for details -General surgery recommendations noted. -If bleeding reoccur patient's only option is a total colectomy since patient is not a candidate for any angiography intervention due to history of aortic dissection. thus far, hemostasis has been achieved. -Continue PPI, and continue to trend hgb on serial CBC -Advance diet as tolerated : ESRD on HD, h/o BPH -Nephrology consulted, appreciate recommendations -HD per nephrology -Monitor intake and output -Renally dose medications -Avoid nephrotoxic medications -Trend BMP Cardiac: h/o HTN, CABG x2, thoracic aortic aneurysm s/p repair -Hydralazine prn -Blood pressure monitoring per protocol Respiratory: Acute hypoxic respiratory failure (resolved) -Supplemental oxygen as needed...currently on room air -SPO2 monitor per protocol -Pulmonary hygiene Endo: Hypoglycemia (resolved), h/o Type 2 Diabetes Meillitus -probably due to NPO status -On D10w gtt -Plan to advance diet as tolerated -will D/C D10w gtt if patient tolerates PO intake. -Continue BG check ACHS -avoid hypoglycemia -Continue hypoglycemic protocol Heme: Acute on chronic anemia of chronic disease (stable), Gastrointestinal bleed (resolved) -Presented with GI bleed -Multiple episodes of GI bleed noted throughout stay -S/p 5 unit prbc -h/h q 8 hours -Trend CBC -Transfuse hemoglobin less than 7 Disposition: 03 [facility] Final Discharge Diagnosis (Prints w/discharge instructions): Lower gastrointestinal bleed Time spent for discharge: 35 Core Measure Documentation - Palliative Care Palliative Care/ Comfort Measures: Not Applicable - Core Measures Any of the following diagnoses?: none Exam - Physical Exam Narrative exam: - Physical exam Narrative exam: General appearance: Present: no acute distress, well-nourished, - EENT Eyes: Present: PERRL ENT: hearing intact - Neck Neck: Present: normal ROM - Respiratory Respiratory effort: normal Respiratory: left: wheezing, bilateral: diminished - Cardiovascular Rhythm: regular Heart Sounds: Present: S1 & S2 - Extremities Extremities: no ischemia, pulses intact, pulses symmetrical Extremity abnormal: edema - Peripheral Assessment Generalized Edema Type: Non-pitting Edema Degree: 2+ Capillary Refill: < 3 seconds Skin Temperature: Warm Peripheral Pulses: within normal limits - Abdominal General gastrointestinal: soft, non-distended, normal bowel sounds - Integumentary Integumentary: Present: clear, warm, dry - Psychiatric Psychiatric: appropriate mood/affect, cooperative - Neurologic Neurologic: CNII-XII intact, moves all extremities - Allied Health Allied health notes reviewed: nursing, case management - Constitutional Vitals: Temp Pulse Resp BP Pulse Ox 98.0 F 88 16 144/70 99 01/26/22 11:00 01/26/22 11:00 01/26/22 11:00 01/26/22 11:00 01/26/22 11:00 Plan Follow up with: KRISTINE MERINO MD [Staff Physician] - 7 Days ZAIRE MIRAMONTES MD [Staff Physician] - 7 Days PRIMARY MD NILS [Primary Care Provider] - 7 Days SHAE LUI MD [Staff Physician] - 7 Days Forms: Accompanied Note Prescriptions: amLODIPine 10 mg PO QDAY #30 tab Amiodarone [Cordarone 200 MG TAB] 200 mg PO QDAY #30 tab carvediloL [Coreg] 6.25 mg PO BID #60 tab Pantoprazole [Protonix TAB] 40 mg PO BID #60 tablet
[2022-01-27] MEDS: ACETAMINOPHEN 325 MG TAB PO PRN (04:32)
[2022-01-27] MEDS: ALUM-MAG HYDROXIDE-SIMETHICONE 200-200-20MG/5ML ORAL LIQD 30 ML PO PRN (05:38)
[2022-01-27] MEDS: INSULIN LISPRO 100 UNIT/ML SUB-Q SCH ×4 (07:45→21:59)
--- NOTE | 2022-01-27 08:19 | Progress Note ---
Assessment and Plan Assessment and plan: Assessment and Plan Assessment and plan: This is a 62-year-old male with ESRD on HD, HTN, CABG x2, aortic dissection s/p thoracic aortic stent, BPH and DM admitted with GI bleeding ICU course to date: 01/15: Patient was transferred to ICU for closer monitoring yesterday afternoon after second episode of GI bleeding was noted and he had a repeat CTA abdomen/pelvis. Patient's hemoglobin dropped to 5 yesterday and was given 2 units PRBC. GI recommends obtaining another CTA if recurrence of GI bleeding noted. 01/16: Patient will get HD today and possibly 25 DC tomorrow. Added hydralazine as needed for hypertension. Started D10 drip due to persistent hypoglycemia. 01/17: Patient remains stable, no s/s of any active bleeding overnight. H&H is stable. Plan for repeat Colonoscopy today by GI. Continue D10w for hypoglycemia and trend CBC 01/18: s/p repeat colonoscopy, diverticuli noted throughout the colon but no evidence of any active bleeding. No bloody stools reported for over 48hrs, H&H and vital signs are stable. GI and general surgery recommendations noted. If bleeding reoccur patient's only option is a total colectomy since patient is not a candidate for any angiography intervention due to history of aortic dissecti on. Continue PPI, and continue to trend CBC. Advance diet as tolerated, will D/C D10w gtt if patient tolerates PO intake. Continue BG check ACHS, avoid hypoglycemia. Plan for HD today per Nephro. D/[facility] patient is stable for transfer to Telemetry. 01/19: Patient seen and examined clinically stable, discussed with surgery and also with all the specialties involved in the case.reviewed GI and Surgery notes. Patient not a candidate for any IR procedure. Surgery only option and awaiting next bleed if it happens. Even with bleeding in the past, hemodynamically patient has been stable. Also discussed with the sister and explained the clinical condition of findings she verbalized understanding plan at this time is for discharge of patient back to the facility 01/20: Late entry, awaiting discharge to facility. 01/21: Patient seen and examined, resting comfortable. No new compliant. No new Bleeding reported. H/H stable. 01/22: No new bleeding, awaiting placement, continue supportive care. 01/23: Continue supportive care. No further bleeding noted. Anticipate discharge in a.m. if placement is obtained In summary of visit the patient came in with rectal bleed requiring transfusion. GI evaluated the patient also diverticulosis. Surgery evaluated the patient no planned intervention at this time but if patient rebleeds will need a total colectomy. In the meantime patient is currently waiting for placement 01/24: Continue supportive care. Complaints of abdominal pain and some nausea t his morning. Change Zofran to ODT. Continue pantoprazole. Discussed with case management regarding placement today. Case management will be following up with [facility] (where pt presented from) as to why patient cannot return back to facility. 01/25: No acute overnight issues. Awaiting placement. Discussed with CM. 01/26: No overnight events. Awaiting placement. Discussed with CM on rounds this AM. plan [facility]+dialysis center vs home w/hhc. 01/27: No overnight events. Patient undergoing dialysis today. Difficulties placing this patient, original facility is not excepting this patient. Working with case management for resolution. Assessment and Plan GI: LGIB, moderate protein calorie malnutrition/ Diverticulosis -GI, IR, surgery consulted, appreciate recommendations -Abdomen pelvis CT showed previous placement of thoracic aortic stent graft, 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 Collaterals presumably chronic, gallstones -S/p EGD and 01/12 which showed normal esophagus, mild erythematous mucosa in the antrum of of the body, biopsies obtained, normal duodenum, biopsies obtained and no source of GI bleeding found -S/p colonoscopy on 01/12 due to feeling poor quality however likely diverticular bleed -01/13 CTA abdomen/pelvis showed mild diverticular disease throughout the colon with endoluminal opacification of nearly all of the colon suggesting oral contrast however patient did have a history of oral contrast administration in addition To saturations would include carious excretion of contrast from the gallbladder however this appears out of proportion therefore hemorrhage should be considered, no clear source is identified, redemonstrated vascular disease without change -01/15 CTA abdomen/pelvis previous placement of thoracic aortic stent graft with 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 See report for details -General surgery recommendations noted. -If bleeding reoccur patient's only option is a total colectomy since patient is not a candidate for any angiography intervention due to history of aortic dissection. -Continue PPI, and continue to trend CBC -Advance diet as tolerated : ESRD on HD, h/o BPH -Nephrology consulted, appreciate recommendations -HD per nephrology -Monitor intake and output -Renally dose medications -Avoid nephrotoxic medications -Trend BMP Cardiac: h/o HTN, CABG x2, thoracic aortic aneurysm s/p repair -Hydralazine prn -Blood pressure monitoring per protocol Respiratory: Acute hypoxic respiratory failure -Supplemental oxygen as needed -SPO2 monitor per protocol -Pulmonary hygiene Endo: Hypoglycemia, h/o DM -probably due to NPO status -On D10w gtt -Plan to advance diet as tolerated -will D/C D10w gtt if patient tolerates PO intake. -Continue BG check ACHS -avoid hypoglycemia -Continue hypoglycemic protocol Heme: Acute on chronic anemia of chronic disease, GIB -Presented with GI bleed -Multiple episodes of GI bleed noted throughout stay -S/p 5 unit prbc -h/h q 8 hours -Trend CBC -Transfuse hemoglobin less than 7 Disposition: [facility] Time spent: +35 min CPT 18075 History Interval history: No acute complaints on bedside encounter this AM. Going down to dialysis. Hospitalist Physical - Physical exam Narrative exam: - Physical exam Narrative exam: General appearance: Present: no acute distress, well-nourished, - EENT Eyes: Present: PERRL ENT: hearing intact - Neck Neck: Present: normal ROM - Respiratory Respiratory effort: normal Respiratory: left: wheezing, bilateral: diminished - Cardiovascular Rhythm: regular Heart Sounds: Present: S1 & S2 - Extremities Extremities: no ischemia, pulses intact, pulses symmetrical Extremity abnormal: edema - Peripheral Assessment Generalized Edema Type: Non-pitting Edema Degree: 2+ Capillary Refill: < 3 seconds Skin Temperature: Warm Peripheral Pulses: within normal limits - Abdominal General gastrointestinal: soft, non-distended, normal bowel sounds - Integumentary Integumentary: Present: clear, warm, dry - Psychiatric Psychiatric: appropriate mood/affect, cooperative - Neurologic Neurologic: CNII-XII intact, moves all extremities - Allied Health Allied health notes reviewed: nursing, case management - Constitutional Vitals: Temp Pulse Resp BP Pulse Ox 98.8 F 95 H 18 145/82 98 01/27/22 04:21 01/27/22 04:21 01/27/22 04:21 01/27/22 04:21 01/27/22 04:21 General appearance: Present: no acute distress, well-nourished, obese Results - Labs CBC & Chem 7: 01/20/22 23:06 01/19/22 04:21 Labs: Laboratory Last Values WBC 10.2 K/mm3 (4.5-11.0) 01/20/22 23:06 RBC 3.00 M/mm3 (3.65-5.03) L 01/20/22 23:06 Hgb 9.1 gm/dl (11.8-15.2) L 01/20/22 23:06 Hct 29.3 % (35.5-45.6) L 01/20/22 23:06 MCV 98 fl (84-94) H 01/20/22 23:06 MCH 30 pg (28-32) 01/20/22 23:06 MCHC 31 % (32-34) L 01/20/22 23:06 RDW 18.6 % (13.2-15.2) H 01/20/22 23:06 Plt Count 135 K/mm3 (140-440) L 01/20/22 23:06 Lymph % (Auto) 10.2 % (13.4-35.0) L 01/20/22 23:06 [place] % (Auto) 9.9 % (0.0-7.3) H 01/20/22 23:06 Eos % (Auto) 7.2 % (0.0-4.3) H 01/20/22 23:06 Baso % (Auto) 0.5 % (0.0-1.8) 01/20/22 23:06 Lymph # (Auto) 1.0 K/mm3 (1.2-5.4) L 01/20/22 23:06 [place] # (Auto) 1.0 K/mm3 (0.0-0.8) H 01/20/22 23:06 Eos # (Auto) 0.7 K/mm3 (0.0-0.4) H 01/20/22 23:06 Baso # (Auto) 0.0 K/mm3 (0.0-0.1) 01/20/22 23:06 Add Manual Diff Complete 01/11/22 13:02 Total Counted 100 01/11/22 13:02 Seg Neutrophils % 72.2 % (40.0-70.0) H 01/20/22 23:06 Seg Neuts % (Manual) 76.0 % (40.0-70.0) H 01/11/22 13:02 Band Neutrophils % 1.0 % 01/11/22 13:02 Lymphocytes % (Manual) 7.0 % (13.4-35.0) L 01/11/22 13:02 Reactive Lymphs % (Man) 0 % 01/11/22 13:02 Monocytes % (Manual) 5.0 % (0.0-7.3) 01/11/22 13:02 Eosinophils % (Manual) 11.0 % (0.0-4.3) H 01/11/22 13:02 Basophils % (Manual) 0 % (0.0-1.8) 01/11/22 13:02 Metamyelocytes % 0 % 01/11/22 13:02 Myelocytes % 0 % 01/11/22 13:02 Promyelocytes % 0 % 01/11/22 13:02 Blast Cells % 0 % 01/11/22 13:02 Nucleated RBC % Not Reportable 01/11/22 13:02 Seg Neutrophils # 7.3 K/mm3 (1.8-7.7) 01/20/22 23:06 Seg Neutrophils # Man 5.1 K/mm3 (1.8-7.7) 01/11/22 13:02 Band Neutrophils # 0.1 K/mm3 01/11/22 13:02 Lymphocytes # (Manual) 0.5 K/mm3 (1.2-5.4) L 01/11/22 13:02 Abs React Lymphs (Man) 0.0 K/mm3 01/11/22 13:02 Monocytes # (Manual) 0.3 K/mm3 (0.0-0.8) 01/11/22 13:02 Eosinophils # (Manual) 0.7 K/mm3 (0.0-0.4) H 01/11/22 13:02 Basophils # (Manual) 0.0 K/mm3 (0.0-0.1) 01/11/22 13:02 Metamyelocytes # 0.0 K/mm3 01/11/22 13:02 Myelocytes # 0.0 K/mm3 01/11/22 13:02 Promyelocytes # 0.0 K/mm3 01/11/22 13:02 Blast Cells # 0.0 K/mm3 01/11/22 13:02 WBC Morphology Not Reportable 01/11/22 13:02 Hypersegmented Neuts Not Reportable 01/11/22 13:02 Hyposegmented Neuts Not Reportable 01/11/22 13:02 Hypogranular Neuts Not Reportable 01/11/22 13:02 Smudge Cells Not Reportable 01/11/22 13:02 Toxic Granulation Not Reportable 01/11/22 13:02 Toxic Vacuolation Not Reportable 01/11/22 13:02 Dohle Bodies Not Reportable 01/11/22 13:02 Pelger-Huet Anomaly Not Reportable 01/11/22 13:02 Heri Rods Not Reportable 01/11/22 13:02 Platelet Estimate Consistent w auto 01/11/22 13:02 Clumped Platelets Not Reportable 01/11/22 13:02 Plt Clumps, EDTA Not Reportable 01/11/22 13:02 Large Platelets Not Reportable 01/11/22 13:02 Giant Platelets Not Reportable 01/11/22 13:02 Platelet Satelliting Not Reportable 01/11/22 13:02 Plt Morphology Comment Not Reportable 01/11/22 13:02 RBC Morphology Not Reportable 01/11/22 13:02 Dimorphic RBCs Not Reportable 01/11/22 13:02 Polychromasia Not Reportable 01/11/22 13:02 Hypochromasia 2+ 01/11/22 13:02 Poikilocytosis Not Reportable 01/11/22 13:02 Anisocytosis Not Reportable 01/11/22 13:02 Microcytosis Not Reportable 01/11/22 13:02 Macrocytosis 1+ 01/11/22 13:02 Spherocytes Not Reportable 01/11/22 13:02 Pappenheimer Bodies Not Reportable 01/11/22 13:02 Sickle Cells Not Reportable 01/11/22 13:02 Target Cells Not Reportable 01/11/22 13:02 Tear Drop Cells Not Reportable 01/11/22 13:02 Ovalocytes Not Reportable 01/11/22 13:02 Helmet Cells Not Reportable 01/11/22 13:02 Phelps-Whitefish Bodies Not Reportable 01/11/22 13:02 Posey Rings Not Reportable 01/11/22 13:02 Arianna Cells Not Reportable 01/11/22 13:02 Bite Cells Not Reportable 01/11/22 13:02 Crenated Cell Not Reportable 01/11/22 13:02 Elliptocytes Not Reportable 01/11/22 13:02 Acanthocytes (Spur) Not Reportable 01/11/22 13:02 Rouleaux Not Reportable 01/11/22 13:02 Hemoglobin C Crystals Not Reportable 01/11/22 13:02 Schistocytes Not Reportable 01/11/22 13:02 Malaria parasites Not Reportable 01/11/22 13:02 Jose Antonio Bodies Not Reportable 01/11/22 13:02 Hem Pathologist Commnt No 01/11/22 13:02 PT 15.8 Sec. (12.2-14.9) H 01/11/22 09:58 INR 1.13 (0.87-1.13) 01/11/22 09:58 Sodium 142 mmol/L (137-145) 01/19/22 04:21 Potassium 3.6 mmol/L (3.6-5.0) 01/19/22 04:21 Chloride 103.3 mmol/L (98-107) 01/19/22 04:21 Carbon Dioxide 30 mmol/L (22-30) 01/19/22 04:21 Anion Gap 12 mmol/L 01/19/22 04:21 BUN 13 mg/dL (9-20) 01/19/22 04:21 Creatinine 3.4 mg/dL (0.8-1.3) H 01/19/22 04:21 Estimated GFR 22 ml/min 01/19/22 04:21 BUN/Creatinine Ratio 4 % 01/19/22 04:21 Glucose 77 mg/dL (75-100) 01/19/22 04:21 POC Glucose 129 mg/dL (70-105) H 01/26/22 21:20 Calcium 7.5 mg/dL (8.4-10.2) L 01/19/22 04:21 Phosphorus 6.80 mg/dL (2.5-4.5) H 01/16/22 04:07 Magnesium 1.90 mg/dL (1.7-2.3) 01/16/22 04:07 Total Bilirubin 0.30 mg/dL (0.1-1.2) 01/18/22 04:32 AST 15 units/L (5-40) 01/18/22 04:32 ALT 13 units/L (7-56) 01/18/22 04:32 Alkaline Phosphatase 53 units/L (35-129) 01/18/22 04:32 Total Protein 5.3 g/dL (6.3-8.2) L 01/18/22 04:32 Albumin 3.0 g/dL (3.9-5) L 01/18/22 04:32 Albumin/Globulin Ratio 1.3 % 01/18/22 04:32 Lipase 19 units/L (13-60) 01/11/22 09:58 SARS-CoV-2 (PCR) Negative (Negative) 01/19/22 14:45 Hepatitis A IgM Ab Non-reactive (NonReactive) 01/22/22 17:20 Hep Bs Antigen Non-reactive (Negative) 01/22/22 17:20 Hep B Core IgM Ab Non-reactive (NonReactive) 01/22/22 17:20 Hepatitis C Antibody Non-reactive (NonReactive) 01/22/22 17:20 Blood Type O POSITIVE 01/13/22 05:45 Antibody Screen Negative 01/13/22 05:45 Crossmatch See Detail 01/13/22 05:45 Breaux/IV: Voiding Method Incontinent Active Medications - Current Medications Current Medications: Generic Name Dose Route Start Last Admin Trade Name Freq PRN Reason Stop Dose Admin Acetaminophen 650 mg 01/11/22 16:00 01/27/22 04:32 Acetaminophen 325 Mg Tab PO 650 mg Q4H PRN Administration Pain MILD(1-3)/Fever >100.5/ESQUIVEL Al Hydrox/Mg Hydrox/Simethicone 15 ml 01/27/22 05:25 01/27/22 05:38 Alum-Mag Hydroxide-Simethicone [id number]/5ml Oral Liqd 30 Ml PO 15 ml Q4H PRN Administration Indigestion Dextrose 50 ml 01/16/22 07:43 01/17/22 18:04 Dextrose 50% In Water (25gm) 50 Ml Syringe IV 10 ml Q30MIN PRN Administration Hypoglycemia Protocol Docusate Sodium 100 mg 01/22/22 11:00 01/26/22 22:21 Docusate Sodium 100 Mg Cap PO Not Given BID CA Epoetin Sushil-epbx 20,000 unit 01/23/22 12:00 01/25/22 12:19 Epoetin Sushil-Epbx 10,000 Unit/1 Ml Vial SUB-Q 20,000 unit JUANITO PRN Administration hemodialysis Hydralazine HCl 10 mg 01/16/22 07:45 01/20/22 21:57 Hydralazine 20 Mg/1 Ml Inj IV 10 mg Q4HR PRN Administration Hypertension Sodium Chloride 100 mls @ 999 mls/hr 01/19/22 23:03 Nacl 0.9% IV JUANITO PRN Hypotension Insulin Human Lispro 0 unit 01/18/22 16:30 01/26/22 22:21 Insulin Lispro 100 Unit/Ml SUB-Q Not Given ACHS CA Protocol Ondansetron HCl 4 mg 01/11/22 15:30 01/22/22 12:34 Ondansetron 4 Mg/2 Ml Inj IV 4 mg Q8H PRN Administration Nausea And Vomiting Ondansetron HCl 8 mg 01/24/22 11:54 01/24/22 13:20 Ondansetron 8 Mg Odt Tab PO 8 mg Q8H PRN Administration Nausea And Vomiting Pantoprazole Sodium 40 mg 01/20/22 10:00 01/26/22 22:26 Pantoprazole 40 Mg Tab PO 40 mg BID CA Administration Sodium Chloride 10 ml 01/11/22 22:00 01/26/22 22:25 Sodium Chloride 0.9% 10 Ml Flush Syringe IV Not Given BID CA Sodium Chloride 10 ml 01/11/22 16:00 Sodium Chloride 0.9% 10 Ml Flush Syringe IV PRN PRN LINE FLUSH Nutrition/Malnutrition Assess - Dietary Evaluation Nutrition/Malnutrition Findings: Nutrition Notes Start: 01/12/22 15:00 Freq: Status: Active Protocol: Document 01/19/22 12:34 YNES (Rec: 01/19/22 12:43 YNES [id number]) Nutrition Notes Initial or Follow up Reassessment Current Diagnosis CKD (stage V CKD),Coronary Artery Disease,Diabetes, Hypertension Other Pertinent Diagnosis ESRD+HD, Anemia, s/p GI Bleed, Diverticulosis. Current Diet GI Soft Diet (since D 01/18). Labs/Tests 01/19: Crea 3.4, Ca 7.5. Pertinent Medications 01/19: Nutritionally uremarkable. Height 5 ft 8 in Weight 61.6 kg [place] Body Weight (kg) 70.00 BMI 20.6 Weight change and time frame 7.169 Kg body weight gain reported in 1 week. Weight Status Appropriate Subjective/Other Information RD consult for routine F/U on dietary advancement. Diet advanced to PO, No reports on Pt's PO intake of meals at the time, will assess at F/U. Pt is on Nasal Cannula, O2 saturation @ 98%, according to Physical Assessment History notes. Pt is incontinent, according to Physical Assessment History notes. Pt presents caries and has missing teeth, according to Physical Assessment History notes. Colonoscopy on 01/17 found diverticuli throughout the colon, but no evidence of active bleeding, according to Progress notes. Pt is medically stable and redy for discharge to SNF, according to Progress notes. Percent of energy/protein needs met: Prescribed GI Soft Diet provides for energy/protein needs (2,000 Kcal/82 g) during LOS. Burn Absent Trauma Absent GI Symptoms Other Food Allergy No Skin Integrity/Comment Unspecified area of concern. Minimum of two criteria No Fluid Accumulation N/A Reduced Hris Specialist Strength N/A (non-severe) Protein-Calorie Malnutrition N\A #2 Nutrition Diagnosis Altered GI function Comments: Colonoscopy on 01/17 found diverticuli throughout the colon, but no evidence of active bleeding, according to Progress notes. Diagnosis Progress(for reassessment Improved documentation) #1 Nutrition Diagnosis Underweight Diagnosis Progress(for reassessment Continues documentation) Is patient on ventilator? No Is Patient Ambulatory and/or Out of Bed No REE-([facility]-confined to bed) 1673.808 Kcal/Kg value to use for calculation 30 Approximate Energy Requirements Using 1848 kcal/Kg Calculation Used for Recommendations Kcal/kg Additional Notes Protein: >1.2 g/Kg ABW; >65 g/ day. Fluids: 1 ml/Kcal, or as per MD. Nutrition Intervention Change Diet Order: Continue GI Soft Diet as tolerated. Goal #1 Facilitate PO intake of meals with elemental, textural, or mechanical modification during LOS. Follow-Up By: 01/26/22 Additional Comments Continue monitoring food tolerance, %PO intake of meals , and BM.
--- NOTE | 2022-01-27 09:40 | Progress Note ---
Assessment and Plan 1. ESRD: Patient is on maintenance hemodialysis, MWF schedule. Hemodialysis: 01/13, 01/16, 01/18, 01/19(UF only), 01/20, 01/21(UF only), 01/23, 01/25. HD today. 2. FEN: Volume overload, UF with HD as tolerated. Limit fluid intake. Hyperkalemia, improved with HD. Monitor lytes and volume status. 3. 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 Collaterals presumably chronic, gallstones. S/p EGD and Colonoscopy. Suspect diverticular, recurrent episodes requiring several units of blood. Seen by General Surgery. Epogen with HD. PPI, trend CBC. 4. Acute hypoxic respiratory failure: Supplemental oxygen as needed. Volume control thru HD. Monitor. 5. DM with Hypoglycemia: Monitor. 6. Hypertension: Adjust meds as needed. Volume control. Monitor BP. Subjective: Patient was seen and examined at the bedside. Doing ok. Examination: General appearance: well-developed, appears stated age, not in distress HEENT: no icterus Neck: trachea midline Respiratory: ctab Heart: S1S2, regular, no murmur Abdomen: soft, bowel sounds heard, NT, no palpable mass Integumentary: LE stasis changes noted Neurologic: conversing, able to move extremities Ext: trace edema of Exts Hemodialysis access: R IJ tunnel catheter Subjective Date of service: 01/27/22 Principal diagnosis: End-stage renal disease, gastrointestinal bleeding Objective - Vital Signs Vital signs: Vital Signs - 12hr 01/26/22 01/26/22 01/27/22 22:00 23:05 04:21 Temperature 99.1 F 98.8 F Pulse Rate 97 H 95 H Respiratory 16 18 Rate Blood Pressure 147/82 145/82 O2 Sat by Pulse 100 99 98 Oximetry 01/27/22 01/27/22 07:59 09:15 Temperature 98.0 F Pulse Rate 85 Respiratory 16 Rate Blood Pressure 168/78 O2 Sat by Pulse 100 98 Oximetry - Lab 01/20/22 23:06 01/19/22 04:21 Most recent lab results Calcium 7.5 mg/dL (8.4-10.2) L 01/19/22 04:21 Phosphorus 6.80 mg/dL (2.5-4.5) H 01/16/22 04:07 Magnesium 1.90 mg/dL (1.7-2.3) 01/16/22 04:07 Medications & Allergies - Medications Allergies/Adverse Reactions: Allergies No Known Allergies Allergy (Verified 01/11/22 09:20) Home Medications: Home Medications Medication Instructions Recorded Confirmed Last Taken Type Tamsulosin [Flomax] 0.4 mg PO QDAY #30 cap 01/07/20 01/16/22 Unknown Rx Bacitracin Zinc Oint [Antibiotic 1 applicatio TP BID #1 tube 03/21/20 01/16/22 Unknown Rx Oint] Benzonatate [Tessalon Perles] 100 mg PO Q8HR PRN #20 capsule 03/21/20 01/16/22 Unknown Rx Acetaminophen [Tylenol] 325 mg PO Q6H PRN 01/16/22 01/16/22 Unknown History Atorvastatin [Lipitor] 80 mg PO QHS 01/16/22 01/16/22 Unknown History Calcium Acetate [Phoslo] 667 mg PO QDAY 01/16/22 01/16/22 Unknown History Ergocalciferol (Vitamin D2) 1,250 mcg PO QDAY 01/16/22 01/16/22 Unknown History [Drisdol] Glycerin/Propylene Glycol 30 ml OP QDAY PRN 01/16/22 01/16/22 Unknown History [Artificial Tears Drops] Insulin Lispro [Admelog] See Protocol SQ ACHS 01/16/22 01/16/22 Unknown History Lactobacillus Acidophilus 0.5 mg PO QDAY 01/16/22 01/16/22 Unknown History [Acidophilus Probiotic] Lactulose [Cephulac] 20 gm PO BID PRN 01/16/22 01/16/22 Unknown History Mag Hydrox/Aluminum Hyd/Simeth 10 ml PO QDAY 01/16/22 01/16/22 Unknown History [Mylanta Maximum Strength Pkt] Melatonin [Melatonin 5MG CAP] 5 mg PO QHS 01/16/22 01/16/22 Unknown History Torsemide [Demadex] 100 mg PO QDAY 01/16/22 01/16/22 Unknown History Vit B Comp No.3/Folic/C/Biotin 1 tab PO QDAY 01/16/22 01/16/22 Unknown History [Prisca-Theodore Rx Tablet] megestroL [Megestrol] 40 mg PO QDAY 01/16/22 01/16/22 Unknown History polyethylene glycoL 3350 [Miralax 17 gm PO BID PRN 01/16/22 01/16/22 Unknown History 3350] Amiodarone [Cordarone 200 MG TAB] 200 mg PO QDAY #30 tab 01/19/22 Unknown Rx Pantoprazole [Protonix TAB] 40 mg PO BID #60 tablet 01/19/22 Unknown Rx amLODIPine 10 mg PO QDAY #30 tab 01/19/22 Unknown Rx carvediloL [Coreg] 6.25 mg PO BID #60 tab 01/19/22 Unknown Rx Active Medications: Generic Name Dose Route Start Last Admin Trade Name Freq PRN Reason Stop Dose Admin Acetaminophen 650 mg 01/11/22 16:00 01/27/22 04:32 Acetaminophen 325 Mg Tab PO 650 mg Q4H PRN Administration Pain MILD(1-3)/Fever >100.5/ESQUIVEL Al Hydrox/Mg Hydrox/Simethicone 15 ml 01/27/22 05:25 01/27/22 05:38 Alum-Mag Hydroxide-Simethicone 160-850-73nf/5ml Oral Liqd 30 Ml PO 15 ml Q4H PRN Administration Indigestion Dextrose 50 ml 01/16/22 07:43 01/17/22 18:04 Dextrose 50% In Water (25gm) 50 Ml Syringe IV 10 ml Q30MIN PRN Administration Hypoglycemia Protocol Docusate Sodium 100 mg 01/22/22 11:00 01/26/22 22:21 Docusate Sodium 100 Mg Cap PO Not Given BID CA Epoetin Sushil-epbx 20,000 unit 01/23/22 12:00 01/25/22 12:19 Epoetin Sushil-Epbx 10,000 Unit/1 Ml Vial SUB-Q 20,000 unit JUANITO PRN Administration hemodialysis Hydralazine HCl 10 mg 01/16/22 07:45 01/20/22 21:57 Hydralazine 20 Mg/1 Ml Inj IV 10 mg Q4HR PRN Administration Hypertension Sodium Chloride 100 mls @ 999 mls/hr 01/19/22 23:03 Nacl 0.9% IV JUANITO PRN Hypotension Insulin Human Lispro 0 unit 01/18/22 16:30 01/26/22 22:21 Insulin Lispro 100 Unit/Ml SUB-Q Not Given ACHS [facility] Protocol Ondansetron HCl 4 mg 01/11/22 15:30 01/22/22 12:34 Ondansetron 4 Mg/2 Ml Inj IV 4 mg Q8H PRN Administration Nausea And Vomiting Ondansetron HCl 8 mg 01/24/22 11:54 01/24/22 13:20 Ondansetron 8 Mg Odt Tab PO 8 mg Q8H PRN Administration Nausea And Vomiting Pantoprazole Sodium 40 mg 01/20/22 10:00 01/26/22 22:26 Pantoprazole 40 Mg Tab PO 40 mg BID CA Administration Sodium Chloride 10 ml 01/11/22 22:00 01/26/22 22:25 Sodium Chloride 0.9% 10 Ml Flush Syringe IV Not Given BID CA Sodium Chloride 10 ml 01/11/22 16:00 Sodium Chloride 0.9% 10 Ml Flush Syringe IV PRN PRN LINE FLUSH
[2022-01-27] MEDS: PANTOPRAZOLE 40 MG TAB PO SCH ×2 (10:09→21:59)
[2022-01-27] MEDS: EPOETIN ALFA-EPBX 10,000 UNIT/1 ML VIAL SUB-Q PRN (13:00)
[2022-01-27] MEDS: DOCUSATE SODIUM 100 MG CAP PO SCH ×2 (15:46→21:59)
[2022-01-28] MEDS: INSULIN LISPRO 100 UNIT/ML SUB-Q SCH ×4 (08:12→21:45)
--- NOTE | 2022-01-28 08:33 | Progress Note ---
Assessment and Plan Assessment and plan: Assessment and Plan Assessment and plan: This is a 62-year-old male with ESRD on HD, HTN, CABG x2, aortic dissection s/p thoracic aortic stent, BPH and DM admitted with GI bleeding ICU course to date: 01/15: Patient was transferred to ICU for closer monitoring yesterday afternoon after second episode of GI bleeding was noted and he had a repeat CTA abdomen/pelvis. Patient's hemoglobin dropped to 5 yesterday and was given 2 units PRBC. GI recommends obtaining another CTA if recurrence of GI bleeding noted. 01/16: Patient will get HD today and possibly 25 DC tomorrow. Added hydralazine as needed for hypertension. Started D10 drip due to persistent hypoglycemia. 01/17: Patient remains stable, no s/s of any active bleeding overnight. H&H is stable. Plan for repeat Colonoscopy today by GI. Continue D10w for hypoglycemia and trend CBC 01/18: s/p repeat colonoscopy, diverticuli noted throughout the colon but no evidence of any active bleeding. No bloody stools reported for over 48hrs, H&H and vital signs are stable. GI and general surgery recommendations noted. If bleeding reoccur patient's only option is a total colectomy since patient is not a candidate for any angiography intervention due to history of aortic dissecti on. Continue PPI, and continue to trend CBC. Advance diet as tolerated, will D/C D10w gtt if patient tolerates PO intake. Continue BG check ACHS, avoid hypoglycemia. Plan for HD today per Nephro. D/W [facility] patient is stable for transfer to Telemetry. 01/19: Patient seen and examined clinically stable, discussed with surgery and also with all the specialties involved in the case.reviewed GI and Surgery notes. Patient not a candidate for any IR procedure. Surgery only option and awaiting next bleed if it happens. Even with bleeding in the past, hemodynamically patient has been stable. Also discussed with the sister and explained the clinical condition of findings she verbalized understanding plan at this time is for discharge of patient back to the facility 01/20: Late entry, awaiting discharge to facility. 01/21: Patient seen and examined, resting comfortable. No new compliant. No new Bleeding reported. H/H stable. 01/22: No new bleeding, awaiting placement, continue supportive care. 01/23: Continue supportive care. No further bleeding noted. Anticipate discharge in a.m. if placement is obtained In summary of visit the patient came in with rectal bleed requiring transfusion. GI evaluated the patient also diverticulosis. Surgery evaluated the patient no planned intervention at this time but if patient rebleeds will need a total colectomy. In the meantime patient is currently waiting for placement 01/24: Continue supportive care. Complaints of abdominal pain and some nausea t his morning. Change Zofran to ODT. Continue pantoprazole. Discussed with case management regarding placement today. Case management will be following up with [facility] (where pt presented from) as to why patient cannot return back to facility. 01/25: No acute overnight issues. Awaiting placement. Discussed with CM. 01/26: No overnight events. Awaiting placement. Discussed with CM on rounds this AM. plan [facility]+dialysis center vs home w/hhc. 01/27: No overnight events. Patient undergoing dialysis today. Difficulties placing this patient, original facility is not excepting this patient. Working with case management for resolution. 01/28: No overnight events. Awaiting placement and OP dialysis arrangements. Assessment and Plan GI: LGIB, moderate protein calorie malnutrition/ Diverticulosis -GI, IR, surgery consulted, appreciate recommendations -Abdomen pelvis CT showed previous placement of thoracic aortic stent graft, 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 Collaterals presumably chronic, gallstones -S/p EGD and 01/12 which showed normal esophagus, mild erythematous mucosa in the antrum of of the body, biopsies obtained, normal duodenum, biopsies obtained and no source of GI bleeding found -S/p colonoscopy on 01/12 due to feeling poor quality however likely diverticular bleed -01/13 CTA abdomen/pelvis showed mild diverticular disease throughout the colon with endoluminal opacification of nearly all of the colon suggesting oral contrast however patient did have a history of oral contrast administration in addition To saturations would include carious excretion of contrast from the gallbladder however this appears out of proportion therefore hemorrhage should be considered, no clear source is identified, redemonstrated vascular disease without change -01/15 CTA abdomen/pelvis previous placement of thoracic aortic stent graft with 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 See report for details -General surgery recommendations noted. -If bleeding reoccur patient's only option is a total colectomy since patient is not a candidate for any angiography intervention due to history of aortic dissection. -Continue PPI, and continue to trend CBC -Advance diet as tolerated : ESRD on HD, h/o BPH -Nephrology consulted, appreciate recommendations -HD per nephrology -Monitor intake and output -Renally dose medications -Avoid nephrotoxic medications -Trend BMP Cardiac: h/o HTN, CABG x2, thoracic aortic aneurysm s/p repair -Hydralazine prn -Blood pressure monitoring per protocol Respiratory: Acute hypoxic respiratory failure -Supplemental oxygen as needed -SPO2 monitor per protocol -Pulmonary hygiene Endo: Hypoglycemia, h/o DM -probably due to NPO status -On D10w gtt -Plan to advance diet as tolerated -will D/C D10w gtt if patient tolerates PO intake. -Continue BG check ACHS -avoid hypoglycemia -Continue hypoglycemic protocol Heme: Acute on chronic anemia of chronic disease, GIB -Presented with GI bleed -Multiple episodes of GI bleed noted throughout stay -S/p 5 unit prbc -h/h q 8 hours -Trend CBC -Transfuse hemoglobin less than 7 Disposition: 03 [facility] Time spent: +35 min CPT 61571 History Interval history: No acute complaints on bedside encounter this AM. Hospitalist Physical - Physical exam Narrative exam: - Physical exam Narrative exam: General appearance: Present: no acute distress, well-nourished, - EENT Eyes: Present: PERRL ENT: hearing intact - Neck Neck: Present: normal ROM - Respiratory Respiratory effort: normal Respiratory: left: wheezing, bilateral: diminished - Cardiovascular Rhythm: regular Heart Sounds: Present: S1 & S2 - Extremities Extremities: no ischemia, pulses intact, pulses symmetrical Extremity abnormal: edema - Peripheral Assessment Generalized Edema Type: Non-pitting Edema Degree: 2+ Capillary Refill: < 3 seconds Skin Temperature: Warm Peripheral Pulses: within normal limits - Abdominal General gastrointestinal: soft, non-distended, normal bowel sounds - Integumentary Integumentary: Present: clear, warm, dry - Psychiatric Psychiatric: appropriate mood/affect, cooperative - Neurologic Neurologic: CNII-XII intact, moves all extremities - Allied Health Allied health notes reviewed: nursing, case management - Constitutional Vitals: Temp Pulse Resp BP Pulse Ox 98.6 F 93 H 18 128/73 99 01/28/22 07:43 01/28/22 07:43 01/27/22 22:45 01/28/22 07:43 01/28/22 08:13 General appearance: Present: no acute distress, well-nourished, obese Results - Labs CBC & Chem 7: 01/20/22 23:06 01/19/22 04:21 Labs: Laboratory Last Values WBC 10.2 K/mm3 (4.5-11.0) 01/20/22 23:06 RBC 3.00 M/mm3 (3.65-5.03) L 01/20/22 23:06 Hgb 9.1 gm/dl (11.8-15.2) L 01/20/22 23:06 Hct 29.3 % (35.5-45.6) L 01/20/22 23:06 MCV 98 fl (84-94) H 01/20/22 23:06 MCH 30 pg (28-32) 01/20/22 23:06 MCHC 31 % (32-34) L 01/20/22 23:06 RDW 18.6 % (13.2-15.2) H 01/20/22 23:06 Plt Count 135 K/mm3 (140-440) L 01/20/22 23:06 Lymph % (Auto) 10.2 % (13.4-35.0) L 01/20/22 23:06 Davison % (Auto) 9.9 % (0.0-7.3) H 01/20/22 23:06 Eos % (Auto) 7.2 % (0.0-4.3) H 01/20/22 23:06 Baso % (Auto) 0.5 % (0.0-1.8) 01/20/22 23:06 Lymph # (Auto) 1.0 K/mm3 (1.2-5.4) L 01/20/22 23:06 Davison # (Auto) 1.0 K/mm3 (0.0-0.8) H 01/20/22 23:06 Eos # (Auto) 0.7 K/mm3 (0.0-0.4) H 01/20/22 23:06 Baso # (Auto) 0.0 K/mm3 (0.0-0.1) 01/20/22 23:06 Add Manual Diff Complete 01/11/22 13:02 Total Counted 100 01/11/22 13:02 Seg Neutrophils % 72.2 % (40.0-70.0) H 01/20/22 23:06 Seg Neuts % (Manual) 76.0 % (40.0-70.0) H 01/11/22 13:02 Band Neutrophils % 1.0 % 01/11/22 13:02 Lymphocytes % (Manual) 7.0 % (13.4-35.0) L 01/11/22 13:02 Reactive Lymphs % (Man) 0 % 01/11/22 13:02 Monocytes % (Manual) 5.0 % (0.0-7.3) 01/11/22 13:02 Eosinophils % (Manual) 11.0 % (0.0-4.3) H 01/11/22 13:02 Basophils % (Manual) 0 % (0.0-1.8) 01/11/22 13:02 Metamyelocytes % 0 % 01/11/22 13:02 Myelocytes % 0 % 01/11/22 13:02 Promyelocytes % 0 % 01/11/22 13:02 Blast Cells % 0 % 01/11/22 13:02 Nucleated RBC % Not Reportable 01/11/22 13:02 Seg Neutrophils # 7.3 K/mm3 (1.8-7.7) 01/20/22 23:06 Seg Neutrophils # Man 5.1 K/mm3 (1.8-7.7) 01/11/22 13:02 Band Neutrophils # 0.1 K/mm3 01/11/22 13:02 Lymphocytes # (Manual) 0.5 K/mm3 (1.2-5.4) L 01/11/22 13:02 Abs React Lymphs (Man) 0.0 K/mm3 01/11/22 13:02 Monocytes # (Manual) 0.3 K/mm3 (0.0-0.8) 01/11/22 13:02 Eosinophils # (Manual) 0.7 K/mm3 (0.0-0.4) H 01/11/22 13:02 Basophils # (Manual) 0.0 K/mm3 (0.0-0.1) 01/11/22 13:02 Metamyelocytes # 0.0 K/mm3 01/11/22 13:02 Myelocytes # 0.0 K/mm3 01/11/22 13:02 Promyelocytes # 0.0 K/mm3 01/11/22 13:02 Blast Cells # 0.0 K/mm3 01/11/22 13:02 WBC Morphology Not Reportable 01/11/22 13:02 Hypersegmented Neuts Not Reportable 01/11/22 13:02 Hyposegmented Neuts Not Reportable 01/11/22 13:02 Hypogranular Neuts Not Reportable 01/11/22 13:02 Smudge Cells Not Reportable 01/11/22 13:02 Toxic Granulation Not Reportable 01/11/22 13:02 Toxic Vacuolation Not Reportable 01/11/22 13:02 Dohle Bodies Not Reportable 01/11/22 13:02 Pelger-Huet Anomaly Not Reportable 01/11/22 13:02 Heri Rods Not Reportable 01/11/22 13:02 Platelet Estimate Consistent w auto 01/11/22 13:02 Clumped Platelets Not Reportable 01/11/22 13:02 Plt Clumps, EDTA Not Reportable 01/11/22 13:02 Large Platelets Not Reportable 01/11/22 13:02 Giant Platelets Not Reportable 01/11/22 13:02 Platelet Satelliting Not Reportable 01/11/22 13:02 Plt Morphology Comment Not Reportable 01/11/22 13:02 RBC Morphology Not Reportable 01/11/22 13:02 Dimorphic RBCs Not Reportable 01/11/22 13:02 Polychromasia Not Reportable 01/11/22 13:02 Hypochromasia 2+ 01/11/22 13:02 Poikilocytosis Not Reportable 01/11/22 13:02 Anisocytosis Not Reportable 01/11/22 13:02 Microcytosis Not Reportable 01/11/22 13:02 Macrocytosis 1+ 01/11/22 13:02 Spherocytes Not Reportable 01/11/22 13:02 Pappenheimer Bodies Not Reportable 01/11/22 13:02 Sickle Cells Not Reportable 01/11/22 13:02 Target Cells Not Reportable 01/11/22 13:02 Tear Drop Cells Not Reportable 01/11/22 13:02 Ovalocytes Not Reportable 01/11/22 13:02 Helmet Cells Not Reportable 01/11/22 13:02 Phelps-Witmer Bodies Not Reportable 01/11/22 13:02 [place] Rings Not Reportable 01/11/22 13:02 Arianna Cells Not Reportable 01/11/22 13:02 Bite Cells Not Reportable 01/11/22 13:02 Crenated Cell Not Reportable 01/11/22 13:02 Elliptocytes Not Reportable 01/11/22 13:02 Acanthocytes (Spur) Not Reportable 01/11/22 13:02 Rouleaux Not Reportable 01/11/22 13:02 Hemoglobin C Crystals Not Reportable 01/11/22 13:02 Schistocytes Not Reportable 01/11/22 13:02 Malaria parasites Not Reportable 01/11/22 13:02 Jose Antonio Bodies Not Reportable 01/11/22 13:02 Hem Pathologist Commnt No 01/11/22 13:02 PT 15.8 Sec. (12.2-14.9) H 01/11/22 09:58 INR 1.13 (0.87-1.13) 01/11/22 09:58 Sodium 142 mmol/L (137-145) 01/19/22 04:21 Potassium 3.6 mmol/L (3.6-5.0) 01/19/22 04:21 Chloride 103.3 mmol/L (98-107) 01/19/22 04:21 Carbon Dioxide 30 mmol/L (22-30) 01/19/22 04:21 Anion Gap 12 mmol/L 01/19/22 04:21 BUN 13 mg/dL (9-20) 01/19/22 04:21 Creatinine 3.4 mg/dL (0.8-1.3) H 01/19/22 04:21 Estimated GFR 22 ml/min 01/19/22 04:21 BUN/Creatinine Ratio 4 % 01/19/22 04:21 Glucose 77 mg/dL (75-100) 01/19/22 04:21 POC Glucose 135 mg/dL (70-105) H 01/27/22 20:52 Calcium 7.5 mg/dL (8.4-10.2) L 01/19/22 04:21 Phosphorus 6.80 mg/dL (2.5-4.5) H 01/16/22 04:07 Magnesium 1.90 mg/dL (1.7-2.3) 01/16/22 04:07 Total Bilirubin 0.30 mg/dL (0.1-1.2) 01/18/22 04:32 AST 15 units/L (5-40) 01/18/22 04:32 ALT 13 units/L (7-56) 01/18/22 04:32 Alkaline Phosphatase 53 units/L (35-129) 01/18/22 04:32 Total Protein 5.3 g/dL (6.3-8.2) L 01/18/22 04:32 Albumin 3.0 g/dL (3.9-5) L 01/18/22 04:32 Albumin/Globulin Ratio 1.3 % 01/18/22 04:32 Lipase 19 units/L (13-60) 01/11/22 09:58 SARS-CoV-2 (PCR) Negative (Negative) 01/19/22 14:45 Hepatitis A IgM Ab Non-reactive (NonReactive) 01/22/22 17:20 Hep Bs Antigen Non-reactive (Negative) 01/22/22 17:20 Hep B Core IgM Ab Non-reactive (NonReactive) 01/22/22 17:20 Hepatitis C Antibody Non-reactive (NonReactive) 01/22/22 17:20 Blood Type O POSITIVE 01/13/22 05:45 Antibody Screen Negative 01/13/22 05:45 Crossmatch See Detail 01/13/22 05:45 Breaux/IV: Voiding Method Incontinent Active Medications - Current Medications Current Medications: Generic Name Dose Route Start Last Admin Trade Name Freq PRN Reason Stop Dose Admin Acetaminophen 650 mg 01/11/22 16:00 01/27/22 04:32 Acetaminophen 325 Mg Tab PO 650 mg Q4H PRN Administration Pain MILD(1-3)/Fever >100.5/ESQUIVEL Al Hydrox/Mg Hydrox/Simethicone 15 ml 01/27/22 05:25 01/27/22 05:38 Alum-Mag Hydroxide-Simethicone [phone]/5ml Oral Liqd 30 Ml PO 15 ml Q4H PRN Administration Indigestion Dextrose 50 ml 01/16/22 07:43 01/17/22 18:04 Dextrose 50% In Water (25gm) 50 Ml Syringe IV 10 ml Q30MIN PRN Administration Hypoglycemia Protocol Docusate Sodium 100 mg 01/22/22 11:00 01/27/22 21:59 Docusate Sodium 100 Mg Cap PO Not Given BID CA Epoetin Sushil-epbx 20,000 unit 01/23/22 12:00 01/27/22 13:00 Epoetin Sushil-Epbx 10,000 Unit/1 Ml Vial SUB-Q 20,000 unit JUANITO PRN Administration hemodialysis Hydralazine HCl 10 mg 01/16/22 07:45 01/20/22 21:57 Hydralazine 20 Mg/1 Ml Inj IV 10 mg Q4HR PRN Administration Hypertension Sodium Chloride 100 mls @ 999 mls/hr 01/19/22 23:03 Nacl 0.9% IV JUANITO PRN Hypotension Insulin Human Lispro 0 unit 01/18/22 16:30 01/28/22 08:12 Insulin Lispro 100 Unit/Ml SUB-Q Not Given ACHS CA Protocol Ondansetron HCl 4 mg 01/11/22 15:30 01/22/22 12:34 Ondansetron 4 Mg/2 Ml Inj IV 4 mg Q8H PRN Administration Nausea And Vomiting Ondansetron HCl 8 mg 01/24/22 11:54 01/24/22 13:20 Ondansetron 8 Mg Odt Tab PO 8 mg Q8H PRN Administration Nausea And Vomiting Pantoprazole Sodium 40 mg 01/20/22 10:00 01/27/22 21:59 Pantoprazole 40 Mg Tab PO 40 mg BID CA Administration Sodium Chloride 10 ml 01/11/22 22:00 01/27/22 22:00 Sodium Chloride 0.9% 10 Ml Flush Syringe IV Not Given BID CA Sodium Chloride 10 ml 01/11/22 16:00 Sodium Chloride 0.9% 10 Ml Flush Syringe IV PRN PRN LINE FLUSH Nutrition/Malnutrition Assess - Dietary Evaluation Nutrition/Malnutrition Findings: Nutrition Notes Start: 01/12/22 15:00 Freq: Status: Active Protocol: Document 01/27/22 17:14 HAILEE (Rec: 01/27/22 17:18 HAILEE [id number]) Nutrition Notes Initial or Follow up Reassessment Current Diagnosis CKD (stage V CKD),Diabetes, Hypertension Other Pertinent Diagnosis Lower GIB Current Diet GI soft Labs/Tests Reviewed Pertinent Medications Colace, Protonix Height 5 ft 8 in Weight 61.3 kg Mcloud Body Weight (kg) 70.00 BMI 20.5 Subjective/Other Information Pt eating lunch at time of visit. He says he eats when the food is good. No PO intakes documented since last assessment. He is awaiting placement. Burn Absent Trauma Absent #2 Nutrition Diagnosis Altered GI function As Evidenced by Signs and Symptoms pt tolerating PO intake Diagnosis Progress(for reassessment Resolved documentation) #1 Nutrition Diagnosis Underweight Diagnosis Progress(for reassessment Continues documentation) Is patient on ventilator? No Is Patient Ambulatory and/or Out of Bed No REE-([facility]-confined to bed) 0420.220 Calculation Used for Recommendations [facility] Additional Notes Pro needs >1.2g/kg: >74g/day Fluid needs 1-1.5L/day Nutrition Intervention Change Diet Order: Continue current diet order Goal #1 PO intakes to meet at least 75 % energy and pro needs Revisit per MD consult or patient Sign Off request:
[2022-01-28] MEDS: DOCUSATE SODIUM 100 MG CAP PO SCH ×2 (10:26→21:42)
[2022-01-28] MEDS: PANTOPRAZOLE 40 MG TAB PO SCH ×2 (10:27→21:44)
--- NOTE | 2022-01-28 14:36 | Progress Note ---
Assessment and Plan 1. ESRD: Patient is on maintenance hemodialysis, MWF schedule. Hemodialysis: 01/13, 01/16, 01/18, 01/19(UF only), 01/20, 01/21(UF only), 01/23, 01/25, 01/27. 2. FEN: Volume overload, UF with HD as tolerated. Limit fluid intake. Hyperkalemia, improved with HD. Monitor lytes and volume status. 3. 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 Collaterals presumably chronic, gallstones. S/p EGD and Colonoscopy. Suspect diverticular, recurrent episodes requiring several units of blood. Seen by General Surgery. Epogen with HD. PPI, trend CBC. 4. Acute hypoxic respiratory failure: Supplemental oxygen as needed. Volume control thru HD. Monitor. 5. DM with Hypoglycemia: Monitor. 6. Hypertension: Adjust meds as needed. Volume control. Monitor BP. Subjective: Patient was seen and examined at the bedside. Doing ok. Examination: General appearance: well-developed, appears stated age, not in distress HEENT: no icterus Neck: trachea midline Respiratory: ctab Heart: S1S2, regular, no murmur Abdomen: soft, bowel sounds heard, NT, no palpable mass Integumentary: LE stasis changes noted Neurologic: conversing, able to move extremities Ext: trace edema of exts Hemodialysis access: R IJ tunnel catheter Subjective Date of service: 01/28/22 Principal diagnosis: End-stage renal disease, gastrointestinal bleeding Objective - Vital Signs Vital signs: Vital Signs - 12hr 01/28/22 01/28/22 01/28/22 07:43 08:13 12:02 Temperature 98.6 F 98.2 F Pulse Rate 93 H 91 H Respiratory 18 Rate Blood Pressure 128/73 141/79 O2 Sat by Pulse 100 99 100 Oximetry - Lab 01/20/22 23:06 01/19/22 04:21 Most recent lab results Calcium 7.5 mg/dL (8.4-10.2) L 01/19/22 04:21 Phosphorus 6.80 mg/dL (2.5-4.5) H 01/16/22 04:07 Magnesium 1.90 mg/dL (1.7-2.3) 01/16/22 04:07 Medications & Allergies - Medications Allergies/Adverse Reactions: Allergies No Known Allergies Allergy (Verified 01/11/22 09:20) Home Medications: Home Medications Medication Instructions Recorded Confirmed Last Taken Type Tamsulosin [Flomax] 0.4 mg PO QDAY #30 cap 01/07/20 01/16/22 Unknown Rx Bacitracin Zinc Oint [Antibiotic 1 applicatio TP BID #1 tube 03/21/20 01/16/22 Unknown Rx Oint] Benzonatate [Tessalon Perles] 100 mg PO Q8HR PRN #20 capsule 03/21/20 01/16/22 Unknown Rx Acetaminophen [Tylenol] 325 mg PO Q6H PRN 01/16/22 01/16/22 Unknown History Atorvastatin [Lipitor] 80 mg PO QHS 01/16/22 01/16/22 Unknown History Calcium Acetate [Phoslo] 667 mg PO QDAY 01/16/22 01/16/22 Unknown History Ergocalciferol (Vitamin D2) 1,250 mcg PO QDAY 01/16/22 01/16/22 Unknown History [Drisdol] Glycerin/Propylene Glycol 30 ml OP QDAY PRN 01/16/22 01/16/22 Unknown History [Artificial Tears Drops] Insulin Lispro [Admelog] See Protocol SQ ACHS 01/16/22 01/16/22 Unknown History Lactobacillus Acidophilus 0.5 mg PO QDAY 01/16/22 01/16/22 Unknown History [Acidophilus Probiotic] Lactulose [Cephulac] 20 gm PO BID PRN 01/16/22 01/16/22 Unknown History Mag Hydrox/Aluminum Hyd/Simeth 10 ml PO QDAY 01/16/22 01/16/22 Unknown History [Mylanta Maximum Strength Pkt] Melatonin [Melatonin 5MG CAP] 5 mg PO QHS 01/16/22 01/16/22 Unknown History Torsemide [Demadex] 100 mg PO QDAY 01/16/22 01/16/22 Unknown History Vit B Comp No.3/Folic/C/Biotin 1 tab PO QDAY 01/16/22 01/16/22 Unknown History [Prisca-Theodore Rx Tablet] megestroL [Megestrol] 40 mg PO QDAY 01/16/22 01/16/22 Unknown History polyethylene glycoL 3350 [Miralax 17 gm PO BID PRN 01/16/22 01/16/22 Unknown History 3350] Amiodarone [Cordarone 200 MG TAB] 200 mg PO QDAY #30 tab 01/19/22 Unknown Rx Pantoprazole [Protonix TAB] 40 mg PO BID #60 tablet 01/19/22 Unknown Rx amLODIPine 10 mg PO QDAY #30 tab 01/19/22 Unknown Rx carvediloL [Coreg] 6.25 mg PO BID #60 tab 01/19/22 Unknown Rx Active Medications: Generic Name Dose Route Start Last Admin Trade Name Freq PRN Reason Stop Dose Admin Acetaminophen 650 mg 01/11/22 16:00 01/27/22 04:32 Acetaminophen 325 Mg Tab PO 650 mg Q4H PRN Administration Pain MILD(1-3)/Fever >100.5/ESQUIVEL Al Hydrox/Mg Hydrox/Simethicone 15 ml 01/27/22 05:25 01/27/22 05:38 Alum-Mag Hydroxide-Simethicone [phone]/5ml Oral Liqd 30 Ml PO 15 ml Q4H PRN Administration Indigestion Dextrose 50 ml 01/16/22 07:43 01/17/22 18:04 Dextrose 50% In Water (25gm) 50 Ml Syringe IV 10 ml Q30MIN PRN Administration Hypoglycemia Protocol Docusate Sodium 100 mg 01/22/22 11:00 01/28/22 10:26 Docusate Sodium 100 Mg Cap PO Not Given BID [facility] Epoetin Sushil-epbx 20,000 unit 01/23/22 12:00 01/27/22 13:00 Epoetin Sushil-Epbx 10,000 Unit/1 Ml Vial SUB-Q 20,000 unit JUANITO PRN Administration hemodialysis Hydralazine HCl 10 mg 01/16/22 07:45 01/20/22 21:57 Hydralazine 20 Mg/1 Ml Inj IV 10 mg Q4HR PRN Administration Hypertension Sodium Chloride 100 mls @ 999 mls/hr 01/19/22 23:03 Nacl 0.9% IV JUANITO PRN Hypotension Insulin Human Lispro 0 unit 01/18/22 16:30 01/28/22 13:16 Insulin Lispro 100 Unit/Ml SUB-Q Not Given ACHS CA Protocol Ondansetron HCl 4 mg 01/11/22 15:30 01/22/22 12:34 Ondansetron 4 Mg/2 Ml Inj IV 4 mg Q8H PRN Administration Nausea And Vomiting Ondansetron HCl 8 mg 01/24/22 11:54 01/24/22 13:20 Ondansetron 8 Mg Odt Tab PO 8 mg Q8H PRN Administration Nausea And Vomiting Pantoprazole Sodium 40 mg 01/20/22 10:00 01/28/22 10:27 Pantoprazole 40 Mg Tab PO 40 mg BID CA Administration Sodium Chloride 10 ml 01/11/22 22:00 01/28/22 10:27 Sodium Chloride 0.9% 10 Ml Flush Syringe IV Not Given BID CA Sodium Chloride 10 ml 01/11/22 16:00 Sodium Chloride 0.9% 10 Ml Flush Syringe IV PRN PRN LINE FLUSH
--- NOTE | 2022-01-29 09:11 | Progress Note ---
Assessment and Plan 1. ESRD: Patient is on maintenance hemodialysis, MWF schedule. Hemodialysis: 01/13, 01/16, 01/18, 01/19(UF only), 01/20, 01/21(UF only), 01/23, 01/25, 01/27. 2. FEN: Volume overload, UF with HD as tolerated. Limit fluid intake. Hyperkalemia, on HD. Monitor lytes and volume status. 3. 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 Collaterals presumably chronic, gallstones. S/p EGD and Colonoscopy. Suspect diverticular, recurrent episodes requiring several units of blood. Seen by General Surgery. Epogen with HD. PPI, trend CBC. 4. Acute hypoxic respiratory failure: Supplemental oxygen as needed. Volume control thru HD. Monitor. 5. DM with Hypoglycemia: Monitor. 6. Hypertension: Adjust meds as needed. Volume control. Monitor BP. Subjective: Patient was seen and examined at the bedside. Doing ok. Examination: General appearance: well-developed, appears stated age, not in distress HEENT: no icterus Neck: trachea midline Respiratory: ctab Heart: S1S2, regular, no murmur Abdomen: soft, bowel sounds heard, NT, no palpable mass Integumentary: LE stasis changes noted Neurologic: conversing, able to move extremities Ext: no edema Hemodialysis access: R IJ tunnel catheter Subjective Date of service: 01/29/22 Principal diagnosis: End-stage renal disease, gastrointestinal bleeding Objective - Vital Signs Vital signs: Vital Signs - 12hr 01/28/22 01/29/22 01/29/22 22:00 00:48 04:31 Temperature 98.6 F 98.0 F Pulse Rate 96 H 91 H Respiratory 20 19 Rate Blood Pressure 146/84 153/94 O2 Sat by Pulse 99 100 93 Oximetry 01/29/22 01/29/22 07:20 07:24 Temperature 98.6 F Pulse Rate 90 Respiratory Rate Blood Pressure 158/98 O2 Sat by Pulse 99 100 Oximetry - Lab 01/30/22 05:57 01/30/22 19:05 Most recent lab results Calcium 7.5 mg/dL (8.4-10.2) L 01/19/22 04:21 Phosphorus 6.80 mg/dL (2.5-4.5) H 01/16/22 04:07 Magnesium 1.90 mg/dL (1.7-2.3) 01/16/22 04:07 Medications & Allergies - Medications Allergies/Adverse Reactions: Allergies No Known Allergies Allergy (Verified 01/11/22 09:20) Home Medications: Home Medications Medication Instructions Recorded Confirmed Last Taken Type Tamsulosin [Flomax] 0.4 mg PO QDAY #30 cap 01/07/20 01/16/22 Unknown Rx Bacitracin Zinc Oint [Antibiotic 1 applicatio TP BID #1 tube 03/21/20 01/16/22 Unknown Rx Oint] Benzonatate [Tessalon Perles] 100 mg PO Q8HR PRN #20 capsule 03/21/20 01/16/22 Unknown Rx Acetaminophen [Tylenol] 325 mg PO Q6H PRN 01/16/22 01/16/22 Unknown History Atorvastatin [Lipitor] 80 mg PO QHS 01/16/22 01/16/22 Unknown History Calcium Acetate [Phoslo] 667 mg PO QDAY 01/16/22 01/16/22 Unknown History Ergocalciferol (Vitamin D2) 1,250 mcg PO QDAY 01/16/22 01/16/22 Unknown History [Drisdol] Glycerin/Propylene Glycol 30 ml OP QDAY PRN 01/16/22 01/16/22 Unknown History [Artificial Tears Drops] Insulin Lispro [Admelog] See Protocol SQ ACHS 01/16/22 01/16/22 Unknown History Lactobacillus Acidophilus 0.5 mg PO QDAY 01/16/22 01/16/22 Unknown History [Acidophilus Probiotic] Lactulose [Cephulac] 20 gm PO BID PRN 01/16/22 01/16/22 Unknown History Mag Hydrox/Aluminum Hyd/Simeth 10 ml PO QDAY 01/16/22 01/16/22 Unknown History [Mylanta Maximum Strength Pkt] Melatonin [Melatonin 5MG CAP] 5 mg PO QHS 01/16/22 01/16/22 Unknown History Torsemide [Demadex] 100 mg PO QDAY 01/16/22 01/16/22 Unknown History Vit B Comp No.3/Folic/C/Biotin 1 tab PO QDAY 01/16/22 01/16/22 Unknown History [Prisca-Theodore Rx Tablet] megestroL [Megestrol] 40 mg PO QDAY 01/16/22 01/16/22 Unknown History polyethylene glycoL 3350 [Miralax 17 gm PO BID PRN 01/16/22 01/16/22 Unknown History 3350] Amiodarone [Cordarone 200 MG TAB] 200 mg PO QDAY #30 tab 01/19/22 Unknown Rx Pantoprazole [Protonix TAB] 40 mg PO BID #60 tablet 01/19/22 Unknown Rx amLODIPine 10 mg PO QDAY #30 tab 01/19/22 Unknown Rx carvediloL [Coreg] 6.25 mg PO BID #60 tab 01/19/22 Unknown Rx Active Medications: Generic Name Dose Route Start Last Admin Trade Name Freq PRN Reason Stop Dose Admin Acetaminophen 650 mg 01/11/22 16:00 01/27/22 04:32 Acetaminophen 325 Mg Tab PO 650 mg Q4H PRN Administration Pain MILD(1-3)/Fever >100.5/ESQUIVEL Al Hydrox/Mg Hydrox/Simethicone 15 ml 01/27/22 05:25 01/27/22 05:38 Alum-Mag Hydroxide-Simethicone [phone]/5ml Oral Liqd 30 Ml PO 15 ml Q4H PRN Administration Indigestion Dextrose 50 ml 01/16/22 07:43 01/17/22 18:04 Dextrose 50% In Water (25gm) 50 Ml Syringe IV 10 ml Q30MIN PRN Administration Hypoglycemia Protocol Docusate Sodium 100 mg 01/22/22 11:00 01/28/22 21:42 Docusate Sodium 100 Mg Cap PO Not Given BID CA Epoetin Sushil-epbx 20,000 unit 01/23/22 12:00 01/27/22 13:00 Epoetin Sushil-Epbx 10,000 Unit/1 Ml Vial SUB-Q 20,000 unit JUANITO PRN Administration hemodialysis Hydralazine HCl 10 mg 01/16/22 07:45 01/20/22 21:57 Hydralazine 20 Mg/1 Ml Inj IV 10 mg Q4HR PRN Administration Hypertension Sodium Chloride 100 mls @ 999 mls/hr 01/19/22 23:03 Nacl 0.9% IV JUANITO PRN Hypotension Insulin Human Lispro 0 unit 01/18/22 16:30 01/28/22 21:45 Insulin Lispro 100 Unit/Ml SUB-Q Not Given ACHS [facility] Protocol Ondansetron HCl 4 mg 01/11/22 15:30 01/22/22 12:34 Ondansetron 4 Mg/2 Ml Inj IV 4 mg Q8H PRN Administration Nausea And Vomiting Ondansetron HCl 8 mg 01/24/22 11:54 01/24/22 13:20 Ondansetron 8 Mg Odt Tab PO 8 mg Q8H PRN Administration Nausea And Vomiting Pantoprazole Sodium 40 mg 01/20/22 10:00 01/28/22 21:44 Pantoprazole 40 Mg Tab PO 40 mg BID CA Administration Sodium Chloride 10 ml 01/11/22 22:00 01/28/22 21:45 Sodium Chloride 0.9% 10 Ml Flush Syringe IV Not Given BID CA Sodium Chloride 10 ml 01/11/22 16:00 Sodium Chloride 0.9% 10 Ml Flush Syringe IV PRN PRN LINE FLUSH
--- NOTE | 2022-01-29 09:18 | Progress Note ---
Assessment and Plan Assessment and plan: Assessment and Plan Assessment and plan: This is a 62-year-old male with ESRD on HD, HTN, CABG x2, aortic dissection s/p thoracic aortic stent, BPH and DM admitted with GI bleeding ICU course to date: 01/15: Patient was transferred to ICU for closer monitoring yesterday afternoon after second episode of GI bleeding was noted and he had a repeat CTA abdomen/pelvis. Patient's hemoglobin dropped to 5 yesterday and was given 2 units PRBC. GI recommends obtaining another CTA if recurrence of GI bleeding noted. 01/16: Patient will get HD today and possibly 25 DC tomorrow. Added hydralazine as needed for hypertension. Started D10 drip due to persistent hypoglycemia. 01/17: Patient remains stable, no s/s of any active bleeding overnight. H&H is stable. Plan for repeat Colonoscopy today by GI. Continue D10w for hypoglycemia and trend CBC 01/18: s/p repeat colonoscopy, diverticuli noted throughout the colon but no evidence of any active bleeding. No bloody stools reported for over 48hrs, H&H and vital signs are stable. GI and general surgery recommendations noted. If bleeding reoccur patient's only option is a total colectomy since patient is not a candidate for any angiography intervention due to history of aortic dissecti on. Continue PPI, and continue to trend CBC. Advance diet as tolerated, will D/C D10w gtt if patient tolerates PO intake. Continue BG check ACHS, avoid hypoglycemia. Plan for HD today per Nephro. D/[facility] patient is stable for transfer to Telemetry. 01/19: Patient seen and examined clinically stable, discussed with surgery and also with all the specialties involved in the case.reviewed GI and Surgery notes. Patient not a candidate for any IR procedure. Surgery only option and awaiting next bleed if it happens. Even with bleeding in the past, hemodynamically patient has been stable. Also discussed with the sister and explained the clinical condition of findings she verbalized understanding plan at this time is for discharge of patient back to the facility 01/20: Late entry, awaiting discharge to facility. 01/21: Patient seen and examined, resting comfortable. No new compliant. No new Bleeding reported. H/H stable. 01/22: No new bleeding, awaiting placement, continue supportive care. 01/23: Continue supportive care. No further bleeding noted. Anticipate discharge in a.m. if placement is obtained In summary of visit the patient came in with rectal bleed requiring transfusion. GI evaluated the patient also diverticulosis. Surgery evaluated the patient no planned intervention at this time but if patient rebleeds will need a total colectomy. In the meantime patient is currently waiting for placement 01/24: Continue supportive care. Complaints of abdominal pain and some nausea t his morning. Change Zofran to ODT. Continue pantoprazole. Discussed with case management regarding placement today. Case management will be following up with [facility] (where pt presented from) as to why patient cannot return back to facility. 01/25: No acute overnight issues. Awaiting placement. Discussed with CM. 01/26: No overnight events. Awaiting placement. Discussed with CM on rounds this AM. plan [facility]+dialysis center vs home w/hhc. 01/27: No overnight events. Patient undergoing dialysis today. Difficulties placing this patient, original facility is not excepting this patient. Working with case management for resolution. 01/28: No overnight events. Awaiting placement and OP dialysis arrangements. 01/29: No overnight events. Awaiting placement and OP dialysis arrangements. Assessment and Plan GI: LGIB, moderate protein calorie malnutrition/ Diverticulosis -GI, IR, surgery consulted, appreciate recommendations -Abdomen pelvis CT showed previous placement of thoracic aortic stent graft, 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 Collaterals presumably chronic, gallstones -S/p EGD and 01/12 which showed normal esophagus, mild erythematous mucosa in the antrum of of the body, biopsies obtained, normal duodenum, biopsies obtained and no source of GI bleeding found -S/p colonoscopy on 01/12 due to feeling poor quality however likely diverticular bleed -01/13 CTA abdomen/pelvis showed mild diverticular disease throughout the colon with endoluminal opacification of nearly all of the colon suggesting oral contrast however patient did have a history of oral contrast administration in addition To saturations would include carious excretion of contrast from the gallbladder however this appears out of proportion therefore hemorrhage should be considered, no clear source is identified, redemonstrated vascular disease without change -01/15 CTA abdomen/pelvis previous placement of thoracic aortic stent graft with 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 See report for details -General surgery recommendations noted. -If bleeding reoccur patient's only option is a total colectomy since patient is not a candidate for any angiography intervention due to history of aortic dissection. -Continue PPI, and continue to trend CBC -Advance diet as tolerated : ESRD on HD, h/o BPH -Nephrology consulted, appreciate recommendations -HD per nephrology -Monitor intake and output -Renally dose medications -Avoid nephrotoxic medications -Trend BMP Cardiac: h/o HTN, CABG x2, thoracic aortic aneurysm s/p repair -Hydralazine prn -Blood pressure monitoring per protocol Respiratory: Acute hypoxic respiratory failure -Supplemental oxygen as needed -SPO2 monitor per protocol -Pulmonary hygiene Endo: Hypoglycemia, h/o DM -probably due to NPO status -On D10w gtt -Plan to advance diet as tolerated -will D/C D10w gtt if patient tolerates PO intake. -Continue BG check ACHS -avoid hypoglycemia -Continue hypoglycemic protocol Heme: Acute on chronic anemia of chronic disease, GIB -Presented with GI bleed -Multiple episodes of GI bleed noted throughout stay -S/p 5 unit prbc -h/h q 8 hours -Trend CBC -Transfuse hemoglobin less than 7 Disposition: [address] [facility] Time spent: +35 min CPT 41206 History Interval history: NO acute complaints on AM bedside encounter. Hospitalist Physical - Physical exam Narrative exam: - Physical exam Narrative exam: General appearance: Present: no acute distress, well-nourished, - EENT Eyes: Present: PERRL ENT: hearing intact - Neck Neck: Present: normal ROM - Respiratory Respiratory effort: normal Respiratory: left: wheezing, bilateral: diminished - Cardiovascular Rhythm: regular Heart Sounds: Present: S1 & S2 - Extremities Extremities: no ischemia, pulses intact, pulses symmetrical Extremity abnormal: edema - Peripheral Assessment Generalized Edema Type: Non-pitting Edema Degree: 2+ Capillary Refill: < 3 seconds Skin Temperature: Warm Peripheral Pulses: within normal limits - Abdominal General gastrointestinal: soft, non-distended, normal bowel sounds - Integumentary Integumentary: Present: clear, warm, dry - Psychiatric Psychiatric: appropriate mood/affect, cooperative - Neurologic Neurologic: CNII-XII intact, moves all extremities - Allied Health Allied health notes reviewed: nursing, case management - Constitutional Vitals: Temp Pulse Resp BP Pulse Ox 98.6 F 90 19 158/98 100 01/29/22 07:24 01/29/22 07:24 01/29/22 04:31 01/29/22 07:24 01/29/22 07:24 General appearance: Present: no acute distress, well-nourished, obese Results - Labs CBC & Chem 7: 01/20/22 23:06 01/19/22 04:21 Labs: Laboratory Last Values WBC 10.2 K/mm3 (4.5-11.0) 01/20/22 23:06 RBC 3.00 M/mm3 (3.65-5.03) L 01/20/22 23:06 Hgb 9.1 gm/dl (11.8-15.2) L 01/20/22 23:06 Hct 29.3 % (35.5-45.6) L 01/20/22 23:06 MCV 98 fl (84-94) H 01/20/22 23:06 MCH 30 pg (28-32) 01/20/22 23:06 MCHC 31 % (32-34) L 01/20/22 23:06 RDW 18.6 % (13.2-15.2) H 01/20/22 23:06 Plt Count 135 K/mm3 (140-440) L 01/20/22 23:06 Lymph % (Auto) 10.2 % (13.4-35.0) L 01/20/22 23:06 Steele % (Auto) 9.9 % (0.0-7.3) H 01/20/22 23:06 Eos % (Auto) 7.2 % (0.0-4.3) H 01/20/22 23:06 Baso % (Auto) 0.5 % (0.0-1.8) 01/20/22 23:06 Lymph # (Auto) 1.0 K/mm3 (1.2-5.4) L 01/20/22 23:06 Steele # (Auto) 1.0 K/mm3 (0.0-0.8) H 01/20/22 23:06 Eos # (Auto) 0.7 K/mm3 (0.0-0.4) H 01/20/22 23:06 Baso # (Auto) 0.0 K/mm3 (0.0-0.1) 01/20/22 23:06 Add Manual Diff Complete 01/11/22 13:02 Total Counted 100 01/11/22 13:02 Seg Neutrophils % 72.2 % (40.0-70.0) H 01/20/22 23:06 Seg Neuts % (Manual) 76.0 % (40.0-70.0) H 01/11/22 13:02 Band Neutrophils % 1.0 % 01/11/22 13:02 Lymphocytes % (Manual) 7.0 % (13.4-35.0) L 01/11/22 13:02 Reactive Lymphs % (Man) 0 % 01/11/22 13:02 Monocytes % (Manual) 5.0 % (0.0-7.3) 01/11/22 13:02 Eosinophils % (Manual) 11.0 % (0.0-4.3) H 01/11/22 13:02 Basophils % (Manual) 0 % (0.0-1.8) 01/11/22 13:02 Metamyelocytes % 0 % 01/11/22 13:02 Myelocytes % 0 % 01/11/22 13:02 Promyelocytes % 0 % 01/11/22 13:02 Blast Cells % 0 % 01/11/22 13:02 Nucleated RBC % Not Reportable 01/11/22 13:02 Seg Neutrophils # 7.3 K/mm3 (1.8-7.7) 01/20/22 23:06 Seg Neutrophils # Man 5.1 K/mm3 (1.8-7.7) 01/11/22 13:02 Band Neutrophils # 0.1 K/mm3 01/11/22 13:02 Lymphocytes # (Manual) 0.5 K/mm3 (1.2-5.4) L 01/11/22 13:02 Abs React Lymphs (Man) 0.0 K/mm3 01/11/22 13:02 Monocytes # (Manual) 0.3 K/mm3 (0.0-0.8) 01/11/22 13:02 Eosinophils # (Manual) 0.7 K/mm3 (0.0-0.4) H 01/11/22 13:02 Basophils # (Manual) 0.0 K/mm3 (0.0-0.1) 01/11/22 13:02 Metamyelocytes # 0.0 K/mm3 01/11/22 13:02 Myelocytes # 0.0 K/mm3 01/11/22 13:02 Promyelocytes # 0.0 K/mm3 01/11/22 13:02 Blast Cells # 0.0 K/mm3 01/11/22 13:02 WBC Morphology Not Reportable 01/11/22 13:02 Hypersegmented Neuts Not Reportable 01/11/22 13:02 Hyposegmented Neuts Not Reportable 01/11/22 13:02 Hypogranular Neuts Not Reportable 01/11/22 13:02 Smudge Cells Not Reportable 01/11/22 13:02 Toxic Granulation Not Reportable 01/11/22 13:02 Toxic Vacuolation Not Reportable 01/11/22 13:02 Dohle Bodies Not Reportable 01/11/22 13:02 Pelger-Huet Anomaly Not Reportable 01/11/22 13:02 Heri Rods Not Reportable 01/11/22 13:02 Platelet Estimate Consistent w auto 01/11/22 13:02 Clumped Platelets Not Reportable 01/11/22 13:02 Plt Clumps, EDTA Not Reportable 01/11/22 13:02 Large Platelets Not Reportable 01/11/22 13:02 Giant Platelets Not Reportable 01/11/22 13:02 Platelet Satelliting Not Reportable 01/11/22 13:02 Plt Morphology Comment Not Reportable 01/11/22 13:02 RBC Morphology Not Reportable 01/11/22 13:02 Dimorphic RBCs Not Reportable 01/11/22 13:02 Polychromasia Not Reportable 01/11/22 13:02 Hypochromasia 2+ 01/11/22 13:02 Poikilocytosis Not Reportable 01/11/22 13:02 Anisocytosis Not Reportable 01/11/22 13:02 Microcytosis Not Reportable 01/11/22 13:02 Macrocytosis 1+ 01/11/22 13:02 Spherocytes Not Reportable 01/11/22 13:02 Pappenheimer Bodies Not Reportable 01/11/22 13:02 Sickle Cells Not Reportable 01/11/22 13:02 Target Cells Not Reportable 01/11/22 13:02 Tear Drop Cells Not Reportable 01/11/22 13:02 Ovalocytes Not Reportable 01/11/22 13:02 Helmet Cells Not Reportable 01/11/22 13:02 [place] Bodies Not Reportable 01/11/22 13:02 Weston Rings Not Reportable 01/11/22 13:02 Arianna Cells Not Reportable 01/11/22 13:02 Bite Cells Not Reportable 01/11/22 13:02 Crenated Cell Not Reportable 01/11/22 13:02 Elliptocytes Not Reportable 01/11/22 13:02 Acanthocytes (Spur) Not Reportable 01/11/22 13:02 Rouleaux Not Reportable 01/11/22 13:02 Hemoglobin C Crystals Not Reportable 01/11/22 13:02 Schistocytes Not Reportable 01/11/22 13:02 Malaria parasites Not Reportable 01/11/22 13:02 Jose Antonio Bodies Not Reportable 01/11/22 13:02 Hem Pathologist Commnt No 01/11/22 13:02 PT 15.8 Sec. (12.2-14.9) H 01/11/22 09:58 INR 1.13 (0.87-1.13) 01/11/22 09:58 Sodium 142 mmol/L (137-145) 01/19/22 04:21 Potassium 3.6 mmol/L (3.6-5.0) 01/19/22 04:21 Chloride 103.3 mmol/L (98-107) 01/19/22 04:21 Carbon Dioxide 30 mmol/L (22-30) 01/19/22 04:21 Anion Gap 12 mmol/L 01/19/22 04:21 BUN 13 mg/dL (9-20) 01/19/22 04:21 Creatinine 3.4 mg/dL (0.8-1.3) H 01/19/22 04:21 Estimated GFR 22 ml/min 01/19/22 04:21 BUN/Creatinine Ratio 4 % 01/19/22 04:21 Glucose 77 mg/dL (75-100) 01/19/22 04:21 POC Glucose 110 mg/dL (70-105) H 01/28/22 20:25 Calcium 7.5 mg/dL (8.4-10.2) L 01/19/22 04:21 Phosphorus 6.80 mg/dL (2.5-4.5) H 01/16/22 04:07 Magnesium 1.90 mg/dL (1.7-2.3) 01/16/22 04:07 Total Bilirubin 0.30 mg/dL (0.1-1.2) 01/18/22 04:32 AST 15 units/L (5-40) 01/18/22 04:32 ALT 13 units/L (7-56) 01/18/22 04:32 Alkaline Phosphatase 53 units/L (35-129) 01/18/22 04:32 Total Protein 5.3 g/dL (6.3-8.2) L 01/18/22 04:32 Albumin 3.0 g/dL (3.9-5) L 01/18/22 04:32 Albumin/Globulin Ratio 1.3 % 01/18/22 04:32 Lipase 19 units/L (13-60) 01/11/22 09:58 SARS-CoV-2 (PCR) Negative (Negative) 01/19/22 14:45 Hepatitis A IgM Ab Non-reactive (NonReactive) 01/22/22 17:20 Hep Bs Antigen Non-reactive (Negative) 01/22/22 17:20 Hep B Core IgM Ab Non-reactive (NonReactive) 01/22/22 17:20 Hepatitis C Antibody Non-reactive (NonReactive) 01/22/22 17:20 Blood Type O POSITIVE 01/13/22 05:45 Antibody Screen Negative 01/13/22 05:45 Crossmatch See Detail 01/13/22 05:45 Breaux/IV: Voiding Method Incontinent Active Medications - Current Medications Current Medications: Generic Name Dose Route Start Last Admin Trade Name Freq PRN Reason Stop Dose Admin Acetaminophen 650 mg 01/11/22 16:00 01/27/22 04:32 Acetaminophen 325 Mg Tab PO 650 mg Q4H PRN Administration Pain MILD(1-3)/Fever >100.5/ESQUIVEL Al Hydrox/Mg Hydrox/Simethicone 15 ml 01/27/22 05:25 01/27/22 05:38 Alum-Mag Hydroxide-Simethicone 135-137-18mc/5ml Oral Liqd 30 Ml PO 15 ml Q4H PRN Administration Indigestion Dextrose 50 ml 01/16/22 07:43 01/17/22 18:04 Dextrose 50% In Water (25gm) 50 Ml Syringe IV 10 ml Q30MIN PRN Administration Hypoglycemia Protocol Docusate Sodium 100 mg 01/22/22 11:00 01/28/22 21:42 Docusate Sodium 100 Mg Cap PO Not Given BID CA Epoetin Sushil-epbx 20,000 unit 01/23/22 12:00 01/27/22 13:00 Epoetin Sushil-Epbx 10,000 Unit/1 Ml Vial SUB-Q 20,000 unit JUANITO PRN Administration hemodialysis Hydralazine HCl 10 mg 01/16/22 07:45 01/20/22 21:57 Hydralazine 20 Mg/1 Ml Inj IV 10 mg Q4HR PRN Administration Hypertension Sodium Chloride 100 mls @ 999 mls/hr 01/19/22 23:03 Nacl 0.9% IV JUANITO PRN Hypotension Insulin Human Lispro 0 unit 01/18/22 16:30 01/28/22 21:45 Insulin Lispro 100 Unit/Ml SUB-Q Not Given ACHS CA Protocol Ondansetron HCl 4 mg 01/11/22 15:30 01/22/22 12:34 Ondansetron 4 Mg/2 Ml Inj IV 4 mg Q8H PRN Administration Nausea And Vomiting Ondansetron HCl 8 mg 01/24/22 11:54 01/24/22 13:20 Ondansetron 8 Mg Odt Tab PO 8 mg Q8H PRN Administration Nausea And Vomiting Pantoprazole Sodium 40 mg 01/20/22 10:00 01/28/22 21:44 Pantoprazole 40 Mg Tab PO 40 mg BID CA Administration Sodium Chloride 10 ml 01/11/22 22:00 01/28/22 21:45 Sodium Chloride 0.9% 10 Ml Flush Syringe IV Not Given BID CA Sodium Chloride 10 ml 01/11/22 16:00 Sodium Chloride 0.9% 10 Ml Flush Syringe IV PRN PRN LINE FLUSH Nutrition/Malnutrition Assess - Dietary Evaluation Nutrition/Malnutrition Findings: Nutrition Notes Start: 01/12/22 15:00 Freq: Status: Active Protocol: Document 01/27/22 17:14 HAILEE (Rec: 01/27/22 17:18 HAILEE [id number]) Nutrition Notes Initial or Follow up Reassessment Current Diagnosis CKD (stage V CKD),Diabetes, Hypertension Other Pertinent Diagnosis Lower GIB Current Diet GI soft Labs/Tests Reviewed Pertinent Medications Colace, Protonix Height 5 ft 8 in Weight 61.3 kg Hodge Body Weight (kg) 70.00 BMI 20.5 Subjective/Other Information Pt eating lunch at time of visit. He says he eats when the food is good. No PO intakes documented since last assessment. He is awaiting placement. Burn Absent Trauma Absent #2 Nutrition Diagnosis Altered GI function As Evidenced by Signs and Symptoms pt tolerating PO intake Diagnosis Progress(for reassessment Resolved documentation) #1 Nutrition Diagnosis Underweight Diagnosis Progress(for reassessment Continues documentation) Is patient on ventilator? No Is Patient Ambulatory and/or Out of Bed No REE-([place]-St. Jeor-confined to bed) 1670.220 Calculation Used for Recommendations [place]-St Jeor Additional Notes Pro needs >1.2g/kg: >74g/day Fluid needs 1-1.5L/day Nutrition Intervention Change Diet Order: Continue current diet order Goal #1 PO intakes to meet at least 75 % energy and pro needs Revisit per MD consult or patient Sign Off request:
[2022-01-29] MEDS: INSULIN LISPRO 100 UNIT/ML SUB-Q SCH ×4 (09:26→21:03)
[2022-01-29] MEDS: DOCUSATE SODIUM 100 MG CAP PO SCH ×2 (09:27→21:02)
[2022-01-29] MEDS: PANTOPRAZOLE 40 MG TAB PO SCH ×2 (09:38→21:03)
[2022-01-29] MEDS: ALUM-MAG HYDROXIDE-SIMETHICONE 200-200-20MG/5ML ORAL LIQD 30 ML PO PRN (11:44)
[2022-01-30 06:46] LABS: Hematocrit 26.6 % (35.5-45.6); Hemoglobin 8.5 gm/dl (11.8-15.2)
[2022-01-30 07:00] LABS: Calcium 9.5 mg/dL (8.4-10.2)
[2022-01-30] MEDS ORDERED: ALBUTEROL 2.5 MG/3 ML NEBU IH NR (07:29)
[2022-01-30] MEDS ORDERED: SODIUM POLYSTYRENE 15 GM/60 ML ORAL LIQD PO NR ×2 (07:29→10:00)
[2022-01-30] MEDS ORDERED: INSULIN REGULAR, HUMAN 100 UNITS/1 ML IV NR (07:30)
[2022-01-30] MEDS ORDERED: DEXTROSE 50% IN WATER (25GM) 50 ML SYRINGE IV NR ×2 (07:31→10:00)
--- NOTE | 2022-01-30 07:49 | Progress Note ---
Assessment and Plan Assessment and plan: Assessment and Plan Assessment and plan: This is a 62-year-old male with ESRD on HD, HTN, CABG x2, aortic dissection s/p thoracic aortic stent, BPH and DM admitted with GI bleeding ICU course to date: 01/15: Patient was transferred to ICU for closer monitoring yesterday afternoon after second episode of GI bleeding was noted and he had a repeat CTA abdomen/pelvis. Patient's hemoglobin dropped to 5 yesterday and was given 2 units PRBC. GI recommends obtaining another CTA if recurrence of GI bleeding noted. 01/16: Patient will get HD today and possibly 25 DC tomorrow. Added hydralazine as needed for hypertension. Started D10 drip due to persistent hypoglycemia. 01/17: Patient remains stable, no s/s of any active bleeding overnight. H&H is stable. Plan for repeat Colonoscopy today by GI. Continue D10w for hypoglycemia and trend CBC 01/18: s/p repeat colonoscopy, diverticuli noted throughout the colon but no evidence of any active bleeding. No bloody stools reported for over 48hrs, H&H and vital signs are stable. GI and general surgery recommendations noted. If bleeding reoccur patient's only option is a total colectomy since patient is not a candidate for any angiography intervention due to history of aortic dissecti on. Continue PPI, and continue to trend CBC. Advance diet as tolerated, will D/C D10w gtt if patient tolerates PO intake. Continue BG check ACHS, avoid hypoglycemia. Plan for HD today per Nephro. D/W [facility] patient is stable for transfer to Telemetry. 01/19: Patient seen and examined clinically stable, discussed with surgery and also with all the specialties involved in the case.reviewed GI and Surgery notes. Patient not a candidate for any IR procedure. Surgery only option and awaiting next bleed if it happens. Even with bleeding in the past, hemodynamically patient has been stable. Also discussed with the sister and explained the clinical condition of findings she verbalized understanding plan at this time is for discharge of patient back to the facility 01/20: Late entry, awaiting discharge to facility. 01/21: Patient seen and examined, resting comfortable. No new compliant. No new Bleeding reported. H/H stable. 01/22: No new bleeding, awaiting placement, continue supportive care. 01/23: Continue supportive care. No further bleeding noted. Anticipate discharge in a.m. if placement is obtained In summary of visit the patient came in with rectal bleed requiring transfusion. GI evaluated the patient also diverticulosis. Surgery evaluated the patient no planned intervention at this time but if patient rebleeds will need a total colectomy. In the meantime patient is currently waiting for placement 01/24: Continue supportive care. Complaints of abdominal pain and some nausea t his morning. Change Zofran to ODT. Continue pantoprazole. Discussed with case management regarding placement today. Case management will be following up with [facility] (where pt presented from) as to why patient cannot return back to facility. 01/25: No acute overnight issues. Awaiting placement. Discussed with CM. 01/26: No overnight events. Awaiting placement. Discussed with CM on rounds this AM. plan [facility]+dialysis center vs home w/hhc. 01/27: No overnight events. Patient undergoing dialysis today. Difficulties placing this patient, original facility is not excepting this patient. Working with case management for resolution. 01/28: No overnight events. Awaiting placement and OP dialysis arrangements. 01/29: No overnight events. Awaiting placement and OP dialysis arrangements. 01/30: Elevated K= 6.1, ordered Kionex, insulin, d50, albuterol. Repeat BMP ordered for 1500. Dialysis planned today. Placement and OP dialysis arrangements pending. Assessment and Plan GI: LGIB, moderate protein calorie malnutrition/ Diverticulosis -GI, IR, surgery consulted, appreciate recommendations -Abdomen pelvis CT showed previous placement of thoracic aortic stent graft, 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 Collaterals presumably chronic, gallstones -S/p EGD and 01/12 which showed normal esophagus, mild erythematous mucosa in the antrum of of the body, biopsies obtained, normal duodenum, biopsies obtained and no source of GI bleeding found -S/p colonoscopy on 01/12 due to feeling poor quality however likely diverticular bleed -01/13 CTA abdomen/pelvis showed mild diverticular disease throughout the colon with endoluminal opacification of nearly all of the colon suggesting oral contrast however patient did have a history of oral contrast administration in addition To saturations would include carious excretion of contrast from the gallbladder however this appears out of proportion therefore hemorrhage should be considered, no clear source is identified, redemonstrated vascular disease without change -01/15 CTA abdomen/pelvis previous placement of thoracic aortic stent graft with 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 See report for details -General surgery recommendations noted. -If bleeding reoccur patient's only option is a total colectomy since patient is not a candidate for any angiography intervention due to history of aortic dissection. -Continue PPI, and continue to trend CBC -Advance diet as tolerated : ESRD on HD, h/o BPH -Nephrology consulted, appreciate recommendations -HD per nephrology -Monitor intake and output -Renally dose medications -Avoid nephrotoxic medications -Trend BMP Cardiac: h/o HTN, CABG x2, thoracic aortic aneurysm s/p repair -Hydralazine prn -Blood pressure monitoring per protocol Respiratory: Acute hypoxic respiratory failure -Supplemental oxygen as needed -SPO2 monitor per protocol -Pulmonary hygiene Endo: Hypoglycemia, h/o DM -probably due to NPO status -On D10w gtt -Plan to advance diet as tolerated -will D/C D10w gtt if patient tolerates PO intake. -Continue BG check ACHS -avoid hypoglycemia -Continue hypoglycemic protocol Heme: Acute on chronic anemia of chronic disease, GIB -Presented with GI bleed -Multiple episodes of GI bleed noted throughout stay -S/p 5 unit prbc -h/h q 8 hours -Trend CBC -Transfuse hemoglobin less than 7 Dis[facility]: [facility] Time spent: +35 min CPT 49305 History Interval history: NO acute complaints on AM bedside encounter. Hospitalist Physical - Physical exam Narrative exam: - Physical exam Narrative exam: General appearance: Present: no acute distress, well-nourished, - EENT Eyes: Present: PERRL ENT: hearing intact - Neck Neck: Present: normal ROM - Respiratory Respiratory effort: normal Respiratory: left: wheezing, bilateral: diminished - Cardiovascular Rhythm: regular Heart Sounds: Present: S1 & S2 - Extremities Extremities: no ischemia, pulses intact, pulses symmetrical Extremity abnormal: edema - Peripheral Assessment Generalized Edema Type: Non-pitting Edema Degree: 2+ Capillary Refill: < 3 seconds Skin Temperature: Warm Peripheral Pulses: within normal limits - Abdominal General gastrointestinal: soft, non-distended, normal bowel sounds - Integumentary Integumentary: Present: clear, warm, dry - Psychiatric Psychiatric: appropriate mood/affect, cooperative - Neurologic Neurologic: CNII-XII intact, moves all extremities - Allied Health Allied health notes reviewed: nursing, case management - Constitutional Vitals: Temp Pulse Resp BP Pulse Ox 98.5 F 98 H 18 159/97 100 01/30/22 04:05 01/30/22 04:05 01/30/22 04:05 01/30/22 04:05 01/30/22 04:05 General appearance: Present: no acute distress, well-nourished, obese Results - Labs CBC & Chem 7: 01/30/22 05:57 01/30/22 05:57 Labs: Laboratory Last Values WBC 10.2 K/mm3 (4.5-11.0) 01/20/22 23:06 RBC 3.00 M/mm3 (3.65-5.03) L 01/20/22 23:06 Hgb 8.5 gm/dl (11.8-15.2) L 01/30/22 05:57 Hct 26.6 % (35.5-45.6) L 01/30/22 05:57 MCV 98 fl (84-94) H 01/20/22 23:06 MCH 30 pg (28-32) 01/20/22 23:06 MCHC 31 % (32-34) L 01/20/22 23:06 RDW 18.6 % (13.2-15.2) H 01/20/22 23:06 Plt Count 135 K/mm3 (140-440) L 01/20/22 23:06 Lymph % (Auto) 10.2 % (13.4-35.0) L 01/20/22 23:06 [place] % (Auto) 9.9 % (0.0-7.3) H 01/20/22 23:06 Eos % (Auto) 7.2 % (0.0-4.3) H 01/20/22 23:06 Baso % (Auto) 0.5 % (0.0-1.8) 01/20/22 23:06 Lymph # (Auto) 1.0 K/mm3 (1.2-5.4) L 01/20/22 23:06 [place] # (Auto) 1.0 K/mm3 (0.0-0.8) H 01/20/22 23:06 Eos # (Auto) 0.7 K/mm3 (0.0-0.4) H 01/20/22 23:06 Baso # (Auto) 0.0 K/mm3 (0.0-0.1) 01/20/22 23:06 Add Manual Diff Complete 01/11/22 13:02 Total Counted 100 01/11/22 13:02 Seg Neutrophils % 72.2 % (40.0-70.0) H 01/20/22 23:06 Seg Neuts % (Manual) 76.0 % (40.0-70.0) H 01/11/22 13:02 Band Neutrophils % 1.0 % 01/11/22 13:02 Lymphocytes % (Manual) 7.0 % (13.4-35.0) L 01/11/22 13:02 Reactive Lymphs % (Man) 0 % 01/11/22 13:02 Monocytes % (Manual) 5.0 % (0.0-7.3) 01/11/22 13:02 Eosinophils % (Manual) 11.0 % (0.0-4.3) H 01/11/22 13:02 Basophils % (Manual) 0 % (0.0-1.8) 01/11/22 13:02 Metamyelocytes % 0 % 01/11/22 13:02 Myelocytes % 0 % 01/11/22 13:02 Promyelocytes % 0 % 01/11/22 13:02 Blast Cells % 0 % 01/11/22 13:02 Nucleated RBC % Not Reportable 01/11/22 13:02 Seg Neutrophils # 7.3 K/mm3 (1.8-7.7) 01/20/22 23:06 Seg Neutrophils # Man 5.1 K/mm3 (1.8-7.7) 01/11/22 13:02 Band Neutrophils # 0.1 K/mm3 01/11/22 13:02 Lymphocytes # (Manual) 0.5 K/mm3 (1.2-5.4) L 01/11/22 13:02 Abs React Lymphs (Man) 0.0 K/mm3 01/11/22 13:02 Monocytes # (Manual) 0.3 K/mm3 (0.0-0.8) 01/11/22 13:02 Eosinophils # (Manual) 0.7 K/mm3 (0.0-0.4) H 01/11/22 13:02 Basophils # (Manual) 0.0 K/mm3 (0.0-0.1) 01/11/22 13:02 Metamyelocytes # 0.0 K/mm3 01/11/22 13:02 Myelocytes # 0.0 K/mm3 01/11/22 13:02 Promyelocytes # 0.0 K/mm3 01/11/22 13:02 Blast Cells # 0.0 K/mm3 01/11/22 13:02 WBC Morphology Not Reportable 01/11/22 13:02 Hypersegmented Neuts Not Reportable 01/11/22 13:02 Hyposegmented Neuts Not Reportable 01/11/22 13:02 Hypogranular Neuts Not Reportable 01/11/22 13:02 Smudge Cells Not Reportable 01/11/22 13:02 Toxic Granulation Not Reportable 01/11/22 13:02 Toxic Vacuolation Not Reportable 01/11/22 13:02 Dohle Bodies Not Reportable 01/11/22 13:02 Pelger-Huet Anomaly Not Reportable 01/11/22 13:02 Heri Rods Not Reportable 01/11/22 13:02 Platelet Estimate Consistent w auto 01/11/22 13:02 Clumped Platelets Not Reportable 01/11/22 13:02 Plt Clumps, EDTA Not Reportable 01/11/22 13:02 Large Platelets Not Reportable 01/11/22 13:02 Giant Platelets Not Reportable 01/11/22 13:02 Platelet Satelliting Not Reportable 01/11/22 13:02 Plt Morphology Comment Not Reportable 01/11/22 13:02 RBC Morphology Not Reportable 01/11/22 13:02 Dimorphic RBCs Not Reportable 01/11/22 13:02 Polychromasia Not Reportable 01/11/22 13:02 Hypochromasia 2+ 01/11/22 13:02 Poikilocytosis Not Reportable 01/11/22 13:02 Anisocytosis Not Reportable 01/11/22 13:02 Microcytosis Not Reportable 01/11/22 13:02 Macrocytosis 1+ 01/11/22 13:02 Spherocytes Not Reportable 01/11/22 13:02 Pappenheimer Bodies Not Reportable 01/11/22 13:02 Sickle Cells Not Reportable 01/11/22 13:02 Target Cells Not Reportable 01/11/22 13:02 Tear Drop Cells Not Reportable 01/11/22 13:02 Ovalocytes Not Reportable 01/11/22 13:02 Helmet Cells Not Reportable 01/11/22 13:02 [place] Bodies Not Reportable 01/11/22 13:02 [place] Rings Not Reportable 01/11/22 13:02 Arianna Cells Not Reportable 01/11/22 13:02 Bite Cells Not Reportable 01/11/22 13:02 Crenated Cell Not Reportable 01/11/22 13:02 Elliptocytes Not Reportable 01/11/22 13:02 Acanthocytes (Spur) Not Reportable 01/11/22 13:02 Rouleaux Not Reportable 01/11/22 13:02 Hemoglobin C Crystals Not Reportable 01/11/22 13:02 Schistocytes Not Reportable 01/11/22 13:02 Malaria parasites Not Reportable 01/11/22 13:02 Jose Antonio Bodies Not Reportable 01/11/22 13:02 Hem Pathologist Commnt No 01/11/22 13:02 PT 15.8 Sec. (12.2-14.9) H 01/11/22 09:58 INR 1.13 (0.87-1.13) 01/11/22 09:58 Sodium 135 mmol/L (137-145) L 01/30/22 05:57 Potassium 6.1 mmol/L (3.6-5.0) H* 01/30/22 05:57 Chloride 97.6 mmol/L (98-107) L 01/30/22 05:57 Carbon Dioxide 31 mmol/L (22-30) H 01/30/22 05:57 Anion Gap 13 mmol/L 01/30/22 05:57 BUN 39 mg/dL (9-20) H 01/30/22 05:57 Creatinine 6.7 mg/dL (0.8-1.3) H 01/30/22 05:57 Estimated GFR 10 ml/min 01/30/22 05:57 BUN/Creatinine Ratio 6 % 01/30/22 05:57 Glucose 72 mg/dL (75-100) L 01/30/22 05:57 POC Glucose 107 mg/dL (70-105) H 01/29/22 21:07 Calcium 9.5 mg/dL (8.4-10.2) 01/30/22 05:57 Phosphorus 4.90 mg/dL (2.5-4.5) H 01/30/22 05:57 Magnesium 1.90 mg/dL (1.7-2.3) 01/16/22 04:07 Total Bilirubin 0.30 mg/dL (0.1-1.2) 01/18/22 04:32 AST 15 units/L (5-40) 01/18/22 04:32 ALT 13 units/L (7-56) 01/18/22 04:32 Alkaline Phosphatase 53 units/L (35-129) 01/18/22 04:32 Total Protein 5.3 g/dL (6.3-8.2) L 01/18/22 04:32 Albumin 3.0 g/dL (3.9-5) L 01/18/22 04:32 Albumin/Globulin Ratio 1.3 % 01/18/22 04:32 Lipase 19 units/L (13-60) 01/11/22 09:58 SARS-CoV-2 (PCR) Negative (Negative) 01/19/22 14:45 Hepatitis A IgM Ab Non-reactive (NonReactive) 01/22/22 17:20 Hep Bs Antigen Non-reactive (Negative) 01/22/22 17:20 Hep B Core IgM Ab Non-reactive (NonReactive) 01/22/22 17:20 Hepatitis C Antibody Non-reactive (NonReactive) 01/22/22 17:20 Blood Type O POSITIVE 01/13/22 05:45 Antibody Screen Negative 01/13/22 05:45 Crossmatch See Detail 01/13/22 05:45 Breaux/IV: Voiding Method Incontinent Active Medications - Current Medications Current Medications: Generic Name Dose Route Start Last Admin Trade Name Freq PRN Reason Stop Dose Admin Acetaminophen 650 mg 01/11/22 16:00 01/27/22 04:32 Acetaminophen 325 Mg Tab PO 650 mg Q4H PRN Administration Pain MILD(1-3)/Fever >100.5/ESQUIVEL Al Hydrox/Mg Hydrox/Simethicone 15 ml 01/27/22 05:25 01/29/22 11:44 Alum-Mag Hydroxide-Simethicone [id number]/5ml Oral Liqd 30 Ml PO 15 ml Q4H PRN Administration Indigestion Albuterol 5 mg 01/30/22 07:29 Albuterol 2.5 Mg/3 Ml Nebu IH 01/30/22 09:00 ONCE NR Dextrose 50 ml 01/16/22 07:43 01/17/22 18:04 Dextrose 50% In Water (25gm) 50 Ml Syringe IV 10 ml Q30MIN PRN Administration Hypoglycemia Protocol Dextrose 50 ml 01/30/22 07:31 Dextrose 50% In Water (25gm) 50 Ml Syringe IV 01/30/22 08:30 ONCE NR Protocol Docusate Sodium 100 mg 01/22/22 11:00 01/29/22 21:02 Docusate Sodium 100 Mg Cap PO Not Given BID [facility] Epoetin Sushil-epbx 20,000 unit 01/23/22 12:00 01/27/22 13:00 Epoetin Sushil-Epbx 10,000 Unit/1 Ml Vial SUB-Q 20,000 unit JUANITO PRN Administration hemodialysis Hydralazine HCl 10 mg 01/16/22 07:45 01/20/22 21:57 Hydralazine 20 Mg/1 Ml Inj IV 10 mg Q4HR PRN Administration Hypertension Sodium Chloride 100 mls @ 999 mls/hr 01/19/22 23:03 Nacl 0.9% IV JUANITO PRN Hypotension Insulin Human Lispro 0 unit 01/18/22 16:30 01/29/22 21:03 Insulin Lispro 100 Unit/Ml SUB-Q Not Given ACHS [facility] Protocol Insulin Human Regular 10 units 01/30/22 07:30 Insulin Regular, Human 100 Units/1 Ml IV 01/30/22 08:30 ONCE NR Ondansetron HCl 4 mg 01/11/22 15:30 01/22/22 12:34 Ondansetron 4 Mg/2 Ml Inj IV 4 mg Q8H PRN Administration Nausea And Vomiting Ondansetron HCl 8 mg 01/24/22 11:54 01/24/22 13:20 Ondansetron 8 Mg Odt Tab PO 8 mg Q8H PRN Administration Nausea And Vomiting Pantoprazole Sodium 40 mg 01/20/22 10:00 01/29/22 21:03 Pantoprazole 40 Mg Tab PO 40 mg BID CA Administration Sodium Chloride 10 ml 01/11/22 22:00 01/29/22 21:03 Sodium Chloride 0.9% 10 Ml Flush Syringe IV Not Given BID CA Sodium Chloride 10 ml 01/11/22 16:00 Sodium Chloride 0.9% 10 Ml Flush Syringe IV PRN PRN LINE FLUSH Sodium Polystyrene Sulfonate 30 gm 01/30/22 07:29 Sodium Polystyrene 15 Gm/60 Ml Oral Liqd PO 01/30/22 09:00 ONCE NR Nutrition/Malnutrition Assess - Dietary Evaluation Nutrition/Malnutrition Findings: Nutrition Notes Start: 01/12/22 15:00 Freq: Status: Active Protocol: Document 01/27/22 17:14 HAILEE (Rec: 01/27/22 17:18 HAILEE [id number]) Nutrition Notes Initial or Follow up Reassessment Current Diagnosis CKD (stage V CKD),Diabetes, Hypertension Other Pertinent Diagnosis Lower GIB Current Diet GI soft Labs/Tests Reviewed Pertinent Medications Colace, Protonix Height 5 ft 8 in Weight 61.3 kg [place] Body Weight (kg) 70.00 BMI 20.5 Subjective/Other Information Pt eating lunch at time of visit. He says he eats when the food is good. No PO intakes documented since last assessment. He is awaiting placement. Burn Absent Trauma Absent #2 Nutrition Diagnosis Altered GI function As Evidenced by Signs and Symptoms pt tolerating PO intake Diagnosis Progress(for reassessment Resolved documentation) #1 Nutrition Diagnosis Underweight Diagnosis Progress(for reassessment Continues documentation) Is patient on ventilator? No Is Patient Ambulatory and/or Out of Bed No REE-([place]-confined to bed) 8050.220 Calculation Used for Recommendations [place] Additional Notes Pro needs >1.2g/kg: >74g/day Fluid needs 1-1.5L/day Nutrition Intervention Change Diet Order: Continue current diet order Goal #1 PO intakes to meet at least 75 % energy and pro needs Revisit per MD consult or patient Sign Off request:
[2022-01-30] MEDS: INSULIN LISPRO 100 UNIT/ML SUB-Q SCH ×4 (08:30→21:37)
[2022-01-30] MEDS: PANTOPRAZOLE 40 MG TAB PO SCH ×2 (09:06→21:34)
[2022-01-30] MEDS: DOCUSATE SODIUM 100 MG CAP PO SCH ×2 (09:06→21:34)
--- NOTE | 2022-01-30 13:21 | Progress Note ---
Assessment and Plan 1. ESRD: Patient is on maintenance hemodialysis, MWF schedule. Hemodialysis: 01/13, 01/16, 01/18, 01/19(UF only), 01/20, 01/21(UF only), 01/23, 01/25, 01/27, 01/30. 2. FEN: Volume overload, UF with HD as tolerated. Limit fluid intake. Hyperkalemia, on HD. Monitor lytes and volume status. 3. 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 Collaterals presumably chronic, gallstones. S/p EGD and Colonoscopy. Suspect diverticular, recurrent episodes requiring several units of blood. Seen by General Surgery. Epogen with HD. PPI, trend CBC. 4. Acute hypoxic respiratory failure: Supplemental oxygen as needed. Volume control thru HD. Monitor. 5. DM with Hypoglycemia: Monitor. 6. Hypertension: Adjust meds as needed. Volume control. Monitor BP. Subjective: Patient was seen and examined at the bedside. Doing ok. Examination: General appearance: well-developed, appears stated age, not in distress HEENT: no icterus Neck: trachea midline Respiratory: ctab Heart: S1S2, regular, no murmur Abdomen: soft, bowel sounds heard, NT, no palpable mass Integumentary: LE stasis changes noted Neurologic: conversing, able to move extremities Ext: no edema Hemodialysis access: R IJ tunnel catheter Subjective Date of service: 01/30/22 Principal diagnosis: End-stage renal disease, gastrointestinal bleeding Objective - Vital Signs Vital signs: Vital Signs - 12hr 01/30/22 01/30/22 01/30/22 04:05 09:00 09:58 Temperature 98.5 F 98.0 F Pulse Rate 98 H 98 H Respiratory 18 20 20 Rate Blood Pressure 159/97 165/101 O2 Sat by Pulse 100 100 100 Oximetry O2 Sat by Pulse Oximetry [ Anterior] 01/30/22 01/30/22 01/30/22 10:55 11:00 11:15 Temperature 98.8 F Pulse Rate 60 59 L 59 L Respiratory 20 Rate Blood Pressure 177/111 171/113 178/110 O2 Sat by Pulse Oximetry O2 Sat by Pulse 98 Oximetry [ Anterior] - Lab 01/30/22 05:57 01/30/22 19:05 Most recent lab results Calcium 9.5 mg/dL (8.4-10.2) 01/30/22 05:57 Phosphorus 4.90 mg/dL (2.5-4.5) H 01/30/22 05:57 Magnesium 1.90 mg/dL (1.7-2.3) 01/16/22 04:07 Medications & Allergies - Medications Allergies/Adverse Reactions: Allergies No Known Allergies Allergy (Verified 01/11/22 09:20) Home Medications: Home Medications Medication Instructions Recorded Confirmed Last Taken Type Tamsulosin [Flomax] 0.4 mg PO QDAY #30 cap 01/07/20 01/16/22 Unknown Rx Bacitracin Zinc Oint [Antibiotic 1 applicatio TP BID #1 tube 03/21/20 01/16/22 Unknown Rx Oint] Benzonatate [Tessalon Perles] 100 mg PO Q8HR PRN #20 capsule 03/21/20 01/16/22 Unknown Rx Acetaminophen [Tylenol] 325 mg PO Q6H PRN 01/16/22 01/16/22 Unknown History Atorvastatin [Lipitor] 80 mg PO QHS 01/16/22 01/16/22 Unknown History Calcium Acetate [Phoslo] 667 mg PO QDAY 01/16/22 01/16/22 Unknown History Ergocalciferol (Vitamin D2) 1,250 mcg PO QDAY 01/16/22 01/16/22 Unknown History [Drisdol] Glycerin/Propylene Glycol 30 ml OP QDAY PRN 01/16/22 01/16/22 Unknown History [Artificial Tears Drops] Insulin Lispro [Admelog] See Protocol SQ ACHS 01/16/22 01/16/22 Unknown History Lactobacillus Acidophilus 0.5 mg PO QDAY 01/16/22 01/16/22 Unknown History [Acidophilus Probiotic] Lactulose [Cephulac] 20 gm PO BID PRN 01/16/22 01/16/22 Unknown History Mag Hydrox/Aluminum Hyd/Simeth 10 ml PO QDAY 01/16/22 01/16/22 Unknown History [Mylanta Maximum Strength Pkt] Melatonin [Melatonin 5MG CAP] 5 mg PO QHS 01/16/22 01/16/22 Unknown History Torsemide [Demadex] 100 mg PO QDAY 01/16/22 01/16/22 Unknown History Vit B Comp No.3/Folic/C/Biotin 1 tab PO QDAY 01/16/22 01/16/22 Unknown History [Prisca-Theodore Rx Tablet] megestroL [Megestrol] 40 mg PO QDAY 01/16/22 01/16/22 Unknown History polyethylene glycoL 3350 [Miralax 17 gm PO BID PRN 01/16/22 01/16/22 Unknown History 3350] Amiodarone [Cordarone 200 MG TAB] 200 mg PO QDAY #30 tab 01/19/22 Unknown Rx Pantoprazole [Protonix TAB] 40 mg PO BID #60 tablet 01/19/22 Unknown Rx amLODIPine 10 mg PO QDAY #30 tab 01/19/22 Unknown Rx carvediloL [Coreg] 6.25 mg PO BID #60 tab 01/19/22 Unknown Rx Active Medications: Generic Name Dose Route Start Last Admin Trade Name Freq PRN Reason Stop Dose Admin Acetaminophen 650 mg 01/11/22 16:00 01/27/22 04:32 Acetaminophen 325 Mg Tab PO 650 mg Q4H PRN Administration Pain MILD(1-3)/Fever >100.5/ESQUIVEL Al Hydrox/Mg Hydrox/Simethicone 15 ml 01/27/22 05:25 01/29/22 11:44 Alum-Mag Hydroxide-Simethicone [id number]/5ml Oral Liqd 30 Ml PO 15 ml Q4H PRN Administration Indigestion Dextrose 50 ml 01/16/22 07:43 01/17/22 18:04 Dextrose 50% In Water (25gm) 50 Ml Syringe IV 10 ml Q30MIN PRN Administration Hypoglycemia Protocol Dextrose 50 ml 01/30/22 10:00 Dextrose 50% In Water (25gm) 50 Ml Syringe IV 01/30/22 15:00 ONCE NR Protocol Docusate Sodium 100 mg 01/22/22 11:00 01/30/22 09:06 Docusate Sodium 100 Mg Cap PO 100 mg BID CA Administration Epoetin Sushil-epbx 20,000 unit 01/23/22 12:00 01/27/22 13:00 Epoetin Sushil-Epbx 10,000 Unit/1 Ml Vial SUB-Q 20,000 unit JUANITO PRN Administration hemodialysis Hydralazine HCl 10 mg 01/16/22 07:45 01/20/22 21:57 Hydralazine 20 Mg/1 Ml Inj IV 10 mg Q4HR PRN Administration Hypertension Sodium Chloride 100 mls @ 999 mls/hr 01/19/22 23:03 Nacl 0.9% IV JUANITO PRN Hypotension Insulin Human Lispro 0 unit 01/18/22 16:30 01/30/22 11:51 Insulin Lispro 100 Unit/Ml SUB-Q Not Given ACHS [facility] Protocol Ondansetron HCl 4 mg 01/11/22 15:30 01/22/22 12:34 Ondansetron 4 Mg/2 Ml Inj IV 4 mg Q8H PRN Administration Nausea And Vomiting Ondansetron HCl 8 mg 01/24/22 11:54 01/24/22 13:20 Ondansetron 8 Mg Odt Tab PO 8 mg Q8H PRN Administration Nausea And Vomiting Pantoprazole Sodium 40 mg 01/20/22 10:00 01/30/22 09:06 Pantoprazole 40 Mg Tab PO 40 mg BID CA Administration Sodium Chloride 10 ml 01/11/22 22:00 01/30/22 09:06 Sodium Chloride 0.9% 10 Ml Flush Syringe IV 10 ml BID CA Administration Sodium Chloride 10 ml 01/11/22 16:00 Sodium Chloride 0.9% 10 Ml Flush Syringe IV PRN PRN LINE FLUSH Sodium Polystyrene Sulfonate 30 gm 01/30/22 10:00 01/30/22 09:35 Sodium Polystyrene 15 Gm/60 Ml Oral Liqd PO 01/30/22 15:00 30 gm ONCE NR Administration
[2022-01-30 19:45] LABS: Calcium 8.6 mg/dL (8.4-10.2)
[2022-01-31 05:58] LABS: Calcium 8.6 mg/dL (8.4-10.2)
[2022-01-31] MEDS ORDERED: SODIUM POLYSTYRENE 15 GM/60 ML ORAL LIQD PO ONE (06:12)
[2022-01-31] MEDS: ACETAMINOPHEN 325 MG TAB PO PRN (07:32)
--- NOTE | 2022-01-31 08:39 | Progress Note ---
Assessment and Plan 1. ESRD: Patient is on maintenance hemodialysis, MWF schedule. Hemodialysis: 01/13, 01/16, 01/18, 01/19(UF only), 01/20, 01/21(UF only), 01/23, 01/25, 01/27, 01/30. 2. FEN: Volume overload, UF with HD as tolerated. Limit fluid intake. Hyperkalemia, Kayexalate, on HD. Monitor lytes and volume status. 3. 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 Collaterals presumably chronic, gallstones. S/p EGD and Colonoscopy. Suspect diverticular, recurrent episodes requiring several units of blood. Seen by General Surgery. Epogen with HD. PPI, trend CBC. 4. Acute hypoxic respiratory failure: Supplemental oxygen as needed. Volume control thru HD. Monitor. 5. DM with Hypoglycemia: Monitor. 6. Hypertension: Adjust meds as needed. Volume control. Monitor BP. Subjective: Patient was seen and examined at the bedside. Doing ok. Examination: General appearance: well-developed, appears stated age, not in distress HEENT: no icterus Neck: trachea midline Respiratory: ctab Heart: S1S2, regular, no murmur Abdomen: soft, bowel sounds heard, NT, no palpable mass Integumentary: LE stasis changes noted Neurologic: conversing, able to move extremities Ext: no edema Hemodialysis access: R IJ tunnel catheter Subjective Date of service: 01/31/22 Principal diagnosis: End-stage renal disease, gastrointestinal bleeding Objective - Vital Signs Vital signs: Vital Signs - 12hr 01/30/22 01/30/22 01/31/22 22:00 23:10 03:41 Temperature 98.7 F 98.5 F Pulse Rate 96 H 94 H Respiratory 16 16 Rate Respiratory 17 Rate [Head] Blood Pressure 140/90 149/84 O2 Sat by Pulse 96 99 99 Oximetry 01/31/22 07:32 Temperature Pulse Rate Respiratory 22 Rate Respiratory Rate [Head] Blood Pressure O2 Sat by Pulse Oximetry - Lab 01/30/22 05:57 01/31/22 04:48 Most recent lab results Calcium 8.6 mg/dL (8.4-10.2) 01/31/22 04:48 Phosphorus 4.90 mg/dL (2.5-4.5) H 01/30/22 05:57 Magnesium 1.90 mg/dL (1.7-2.3) 01/16/22 04:07 Medications & Allergies - Medications Allergies/Adverse Reactions: Allergies No Known Allergies Allergy (Verified 01/11/22 09:20) Home Medications: Home Medications Medication Instructions Recorded Confirmed Last Taken Type Tamsulosin [Flomax] 0.4 mg PO QDAY #30 cap 01/07/20 01/16/22 Unknown Rx Bacitracin Zinc Oint [Antibiotic 1 applicatio TP BID #1 tube 03/21/20 01/16/22 Unknown Rx Oint] Benzonatate [Tessalon Perles] 100 mg PO Q8HR PRN #20 capsule 03/21/20 01/16/22 Unknown Rx Acetaminophen [Tylenol] 325 mg PO Q6H PRN 01/16/22 01/16/22 Unknown History Atorvastatin [Lipitor] 80 mg PO QHS 01/16/22 01/16/22 Unknown History Calcium Acetate [Phoslo] 667 mg PO QDAY 01/16/22 01/16/22 Unknown History Ergocalciferol (Vitamin D2) 1,250 mcg PO QDAY 01/16/22 01/16/22 Unknown History [Drisdol] Glycerin/Propylene Glycol 30 ml OP QDAY PRN 01/16/22 01/16/22 Unknown History [Artificial Tears Drops] Insulin Lispro [Admelog] See Protocol SQ ACHS 01/16/22 01/16/22 Unknown History Lactobacillus Acidophilus 0.5 mg PO QDAY 01/16/22 01/16/22 Unknown History [Acidophilus Probiotic] Lactulose [Cephulac] 20 gm PO BID PRN 01/16/22 01/16/22 Unknown History Mag Hydrox/Aluminum Hyd/Simeth 10 ml PO QDAY 01/16/22 01/16/22 Unknown History [Mylanta Maximum Strength Pkt] Melatonin [Melatonin 5MG CAP] 5 mg PO QHS 01/16/22 01/16/22 Unknown History Torsemide [Demadex] 100 mg PO QDAY 01/16/22 01/16/22 Unknown History Vit B Comp No.3/Folic/C/Biotin 1 tab PO QDAY 01/16/22 01/16/22 Unknown History [Prisca-Theodore Rx Tablet] megestroL [Megestrol] 40 mg PO QDAY 01/16/22 01/16/22 Unknown History polyethylene glycoL 3350 [Miralax 17 gm PO BID PRN 01/16/22 01/16/22 Unknown History 3350] Amiodarone [Cordarone 200 MG TAB] 200 mg PO QDAY #30 tab 01/19/22 Unknown Rx Pantoprazole [Protonix TAB] 40 mg PO BID #60 tablet 01/19/22 Unknown Rx amLODIPine 10 mg PO QDAY #30 tab 01/19/22 Unknown Rx carvediloL [Coreg] 6.25 mg PO BID #60 tab 01/19/22 Unknown Rx Active Medications: Generic Name Dose Route Start Last Admin Trade Name Freq PRN Reason Stop Dose Admin Acetaminophen 650 mg 01/11/22 16:00 01/31/22 07:32 Acetaminophen 325 Mg Tab PO 650 mg Q4H PRN Administration Pain MILD(1-3)/Fever >100.5/ESQUIVEL Al Hydrox/Mg Hydrox/Simethicone 15 ml 01/27/22 05:25 01/29/22 11:44 Alum-Mag Hydroxide-Simethicone [id number]/5ml Oral Liqd 30 Ml PO 15 ml Q4H PRN Administration Indigestion Dextrose 50 ml 01/16/22 07:43 01/17/22 18:04 Dextrose 50% In Water (25gm) 50 Ml Syringe IV 10 ml Q30MIN PRN Administration Hypoglycemia Protocol Docusate Sodium 100 mg 01/22/22 11:00 01/30/22 21:34 Docusate Sodium 100 Mg Cap PO 100 mg BID CA Administration Epoetin Sushil-epbx 20,000 unit 01/23/22 12:00 01/27/22 13:00 Epoetin Sushil-Epbx 10,000 Unit/1 Ml Vial SUB-Q 20,000 unit JUANITO PRN Administration hemodialysis Hydralazine HCl 10 mg 01/16/22 07:45 01/20/22 21:57 Hydralazine 20 Mg/1 Ml Inj IV 10 mg Q4HR PRN Administration Hypertension Sodium Chloride 100 mls @ 999 mls/hr 01/19/22 23:03 Nacl 0.9% IV JUANITO PRN Hypotension Insulin Human Lispro 0 unit 01/18/22 16:30 01/30/22 21:37 Insulin Lispro 100 Unit/Ml SUB-Q Not Given ACHS [facility] Protocol Ondansetron HCl 4 mg 01/11/22 15:30 01/22/22 12:34 Ondansetron 4 Mg/2 Ml Inj IV 4 mg Q8H PRN Administration Nausea And Vomiting Ondansetron HCl 8 mg 01/24/22 11:54 01/24/22 13:20 Ondansetron 8 Mg Odt Tab PO 8 mg Q8H PRN Administration Nausea And Vomiting Pantoprazole Sodium 40 mg 01/20/22 10:00 01/30/22 21:34 Pantoprazole 40 Mg Tab PO 40 mg BID CA Administration Sodium Chloride 10 ml 01/11/22 22:00 01/30/22 21:34 Sodium Chloride 0.9% 10 Ml Flush Syringe IV 10 ml BID CA Administration Sodium Chloride 10 ml 01/11/22 16:00 Sodium Chloride 0.9% 10 Ml Flush Syringe IV PRN PRN LINE FLUSH
[2022-01-31] MEDS: PANTOPRAZOLE 40 MG TAB PO SCH ×2 (10:35→22:12)
[2022-01-31] MEDS: DOCUSATE SODIUM 100 MG CAP PO SCH ×2 (10:35→22:12)
--- NOTE | 2022-01-31 14:54 | Progress Note ---
Assessment and Plan This is a 62-year-old male with ESRD on HD, HTN, CABG x2, aortic dissection s/p thoracic aortic stent, BPH and DM admitted with GI bleeding ICU course to date: 01/15: Patient was transferred to ICU for closer monitoring yesterday afternoon after second episode of GI bleeding was noted and he had a repeat CTA ab domen/pelvis. Patient's hemoglobin dropped to 5 yesterday and was given 2 units PRBC. GI recommends obtaining another CTA if recurrence of GI bleeding noted. 01/16: Patient will get HD today and possibly 25 DC tomorrow. Added hydralazine as needed for hypertension. Started D10 drip due to persistent hypoglycemia. 01/17: Patient remains stable, no s/s of any active bleeding overnight. H&H is st able. Plan for repeat Colonoscopy today by GI. Continue D10w for hypoglycemia and trend CBC 01/18: s/p repeat colonoscopy, diverticuli noted throughout the colon but no evidence of any active bleeding. No bloody stools reported for over 48hrs, H&H and vital signs are stable. GI and general surgery recommendations noted. If bleeding reoccur patient's only option is a total colectomy since patient is not a candidate for any angiography intervention due to history of aortic dissection. Continue PPI, and continue to trend CBC. Advance diet as tolerated, will D/C D10w gtt if patient tolerates PO intake. Continue BG check ACHS, avoid hypoglycemia. Plan for HD today per Nephro. D/W [facility] patient is stable for transfer to Telemetry. 01/19: Patient seen and examined clinically stable, discussed with surgery and also with all the specialties involved in the case.reviewed GI and Surgery notes. Patient not a candidate for any IR procedure. Surgery only option and awaiting next bleed if it happens. Even with bleeding in the past, hemodynamically patient has been stable. Also discussed with the sister and explained the clinical condition of findings she verbalized understanding plan at this time is for discharge of patient back to the facility 01/20: Late entry, awaiting discharge to facility. 01/21: Patient seen and examined, resting comfortable. No new compliant. No new Bleeding reported. H/H stable. 01/22: No new bleeding, awaiting placement, continue supportive care. 01/23: Continue supportive care. No further bleeding noted. Anticipate discharge in a.m. if placement is obtained In summary of visit the patient came in with rectal bleed requiring transfusion. GI evaluated the patient also diverticulosis. Surgery evaluated the patient no planned intervention at this time but if patient rebleeds will need a total colectomy. In the meantime patient is currently waiting for placement 01/24: Continue supportive care. Complaints of abdominal pain and some nausea this morning. Change Zofran to ODT. Continue pantoprazole. Discussed with case management regarding placement today. Case management will be following up with [facility] (where pt presented from) as to why patient cannot return back to facility. 01/25: No acute overnight issues. Awaiting placement. Discussed with CM. 01/26: No overnight events. Awaiting placement. Discussed with CM on rounds this AM. plan [facility]dialysis center vs home w/hhc. 01/27: No overnight events. Patient undergoing dialysis today. Difficulties placing this patient, original facility is not excepting this patient. Working with case management for resolution. 01/28: No overnight events. Awaiting placement and OP dialysis arrangements. 01/29: No overnight events. Awaiting placement and OP dialysis arrangements. 01/30: Elevated K= 6.1, ordered Kionex, insulin, d50, albuterol. Repeat BMP ordered for 1500. Dialysis planned today. Placement and OP dialysis arrangements pending. Assessment and Plan GI: LGIB, moderate protein calorie malnutrition/ Diverticulosis -GI, IR, surgery consulted, appreciate recommendations -Abdomen pelvis CT showed previous placement of thoracic aortic stent graft, 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 Collaterals presumably chronic, gallstones -S/p EGD and 01/12 which showed normal esophagus, mild erythematous mucosa in the antrum of of the body, biopsies obtained, normal duodenum, biopsies obtained and no source of GI bleeding found -S/p colonoscopy on 01/12 due to feeling poor quality however likely diverticular bleed -01/13 CTA abdomen/pelvis showed mild diverticular disease throughout the colon with endoluminal opacification of nearly all of the colon suggesting oral contrast however patient did have a history of oral contrast administration in addition To saturations would include carious excretion of contrast from the gallbladder however this appears out of proportion therefore hemorrhage should be considered, no clear source is identified, redemonstrated vascular disease without change -01/15 CTA abdomen/pelvis previous placement of thoracic aortic stent graft with 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 See report for details -General surgery recommendations noted. -If bleeding reoccur patient's only option is a total colectomy since patient is not a candidate for any angiography intervention due to history of aortic dissection. -Continue PPI, and continue to trend CBC -Advance diet as tolerated : ESRD on HD, h/o BPH -Nephrology consulted, appreciate recommendations -HD per nephrology -Monitor intake and output -Renally dose medications -Avoid nephrotoxic medications -Trend BMP Cardiac: h/o HTN, CABG x2, thoracic aortic aneurysm s/p repair -Hydralazine prn -Blood pressure monitoring per protocol Respiratory: Acute hypoxic respiratory failure -Supplemental oxygen as needed -SPO2 monitor per protocol -Pulmonary hygiene Endo: Hypoglycemia, h/o DM -probably due to NPO status -On D10w gtt -Plan to advance diet as tolerated -will D/C D10w gtt if patient tolerates PO intake. -Continue BG check ACHS -avoid hypoglycemia -Continue hypoglycemic protocol Heme: Acute on chronic anemia of chronic disease, GIB -Presented with GI bleed -Multiple episodes of GI bleed noted throughout stay -S/p 5 unit prbc -h/h q 8 hours -Trend CBC -Transfuse hemoglobin less than 7 Subjective Date of service: 01/31/22 Principal diagnosis: End-stage renal disease, gastrointestinal bleeding Objective - Constitutional Vitals: Vital Signs - 12hr 01/31/22 01/31/22 01/31/22 03:41 07:32 09:03 Temperature 98.5 F 98.8 F Pulse Rate 94 H 99 H Respiratory 16 22 Rate Blood Pressure 149/84 141/91 O2 Sat by Pulse 99 99 Oximetry 01/31/22 11:31 Temperature 98.3 F Pulse Rate 100 H Respiratory Rate Blood Pressure 156/101 O2 Sat by Pulse 100 Oximetry - Labs CBC & Chem 7: 01/30/22 05:57 01/31/22 04:48 Labs: Abnormal lab results 01/30/22 01/30/22 01/30/22 Range/Units 14:05 19:05 20:31 Sodium (137-145) mmol/L Potassium 5.1 H (3.6-5.0) mmol/L Chloride 96.0 L (98-107) mmol/L Carbon Dioxide 37 H (22-30) mmol/L BUN (9-20) mg/dL Creatinine 3.7 H (0.8-1.3) mg/dL POC Glucose 60 L 145 H (70-105) mg/dL 01/31/22 Range/Units 04:48 Sodium 135 L (137-145) mmol/L Potassium 5.6 H (3.6-5.0) mmol/L Chloride 94.4 L (98-107) mmol/L Carbon Dioxide 35 H (22-30) mmol/L BUN 25 H (9-20) mg/dL Creatinine 4.7 H (0.8-1.3) mg/dL POC Glucose (70-105) mg/dL
[2022-01-31] MEDS: INSULIN LISPRO 100 UNIT/ML SUB-Q SCH ×2 (23:07→23:08)
[2022-02-01] MEDS: INSULIN LISPRO 100 UNIT/ML SUB-Q SCH ×4 (09:26→22:37)
[2022-02-01] MEDS: PANTOPRAZOLE 40 MG TAB PO SCH ×2 (09:49→22:36)
[2022-02-01] MEDS: DOCUSATE SODIUM 100 MG CAP PO SCH ×2 (09:49→22:35)
--- NOTE | 2022-02-01 11:08 | Progress Note ---
Assessment and Plan 1. ESRD: Patient is on maintenance hemodialysis, MWF schedule. Hemodialysis: 01/13, 01/16, 01/18, 01/19(UF only), 01/20, 01/21(UF only), 01/23, 01/25, 01/27, 01/30. HD today. 2. FEN: Volume overload, UF with HD as tolerated. Limit fluid intake. Hyperkalemia, Kayexalate as needed, on HD. Monitor lytes and volume status. 3. 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 Collaterals presumably chronic, gallstones. S/p EGD and Colonoscopy. Suspect diverticular, recurrent episodes requiring several units of blood. Seen by General Surgery. Epogen with HD. PPI, trend CBC. 4. Acute hypoxic respiratory failure: Supplemental oxygen as needed. Volume control thru HD. Monitor. 5. DM with Hypoglycemia: Monitor. 6. Hypertension: Adjust meds as needed. Volume control. Monitor BP. Subjective: Patient was seen and examined at the bedside. Doing ok. Examination: General appearance: well-developed, appears stated age, not in distress HEENT: no icterus Neck: trachea midline Respiratory: ctab Heart: S1S2, regular, no murmur Abdomen: soft, bowel sounds heard, NT, no palpable mass Integumentary: LE stasis changes noted Neurologic: conversing, able to move extremities Ext: trace ext edema Hemodialysis access: R IJ tunnel catheter Subjective Date of service: 02/01/22 Principal diagnosis: End-stage renal disease, gastrointestinal bleeding Objective - Vital Signs Vital signs: Vital Signs - 12hr 01/31/22 02/01/22 23:52 04:00 Temperature 98.2 F 98.4 F Pulse Rate 94 H 91 H Respiratory 18 18 Rate Blood Pressure 143/82 Blood Pressure 148/90 [Right] O2 Sat by Pulse 97 100 Oximetry - Lab 01/30/22 05:57 01/31/22 04:48 Most recent lab results Calcium 8.6 mg/dL (8.4-10.2) 01/31/22 04:48 Phosphorus 4.90 mg/dL (2.5-4.5) H 01/30/22 05:57 Magnesium 1.90 mg/dL (1.7-2.3) 01/16/22 04:07 Medications & Allergies - Medications Allergies/Adverse Reactions: Allergies No Known Allergies Allergy (Verified 01/11/22 09:20) Home Medications: Home Medications Medication Instructions Recorded Confirmed Last Taken Type Tamsulosin [Flomax] 0.4 mg PO QDAY #30 cap 01/07/20 01/16/22 Unknown Rx Bacitracin Zinc Oint [Antibiotic 1 applicatio TP BID #1 tube 03/21/20 01/16/22 Unknown Rx Oint] Benzonatate [Tessalon Perles] 100 mg PO Q8HR PRN #20 capsule 03/21/20 01/16/22 Unknown Rx Acetaminophen [Tylenol] 325 mg PO Q6H PRN 01/16/22 01/16/22 Unknown History Atorvastatin [Lipitor] 80 mg PO QHS 01/16/22 01/16/22 Unknown History Calcium Acetate [Phoslo] 667 mg PO QDAY 01/16/22 01/16/22 Unknown History Ergocalciferol (Vitamin D2) 1,250 mcg PO QDAY 01/16/22 01/16/22 Unknown History [Drisdol] Glycerin/Propylene Glycol 30 ml OP QDAY PRN 01/16/22 01/16/22 Unknown History [Artificial Tears Drops] Insulin Lispro [Admelog] See Protocol SQ ACHS 01/16/22 01/16/22 Unknown History Lactobacillus Acidophilus 0.5 mg PO QDAY 01/16/22 01/16/22 Unknown History [Acidophilus Probiotic] Lactulose [Cephulac] 20 gm PO BID PRN 01/16/22 01/16/22 Unknown History Mag Hydrox/Aluminum Hyd/Simeth 10 ml PO QDAY 01/16/22 01/16/22 Unknown History [Mylanta Maximum Strength Pkt] Melatonin [Melatonin 5MG CAP] 5 mg PO QHS 01/16/22 01/16/22 Unknown History Torsemide [Demadex] 100 mg PO QDAY 01/16/22 01/16/22 Unknown History Vit B Comp No.3/Folic/C/Biotin 1 tab PO QDAY 01/16/22 01/16/22 Unknown History [Prisca-Theodore Rx Tablet] megestroL [Megestrol] 40 mg PO QDAY 01/16/22 01/16/22 Unknown History polyethylene glycoL 3350 [Miralax 17 gm PO BID PRN 01/16/22 01/16/22 Unknown History 3350] Amiodarone [Cordarone 200 MG TAB] 200 mg PO QDAY #30 tab 01/19/22 Unknown Rx Pantoprazole [Protonix TAB] 40 mg PO BID #60 tablet 01/19/22 Unknown Rx amLODIPine 10 mg PO QDAY #30 tab 01/19/22 Unknown Rx carvediloL [Coreg] 6.25 mg PO BID #60 tab 01/19/22 Unknown Rx Active Medications: Generic Name Dose Route Start Last Admin Trade Name Freq PRN Reason Stop Dose Admin Acetaminophen 650 mg 01/11/22 16:00 01/31/22 07:32 Acetaminophen 325 Mg Tab PO 650 mg Q4H PRN Administration Pain MILD(1-3)/Fever >100.5/ESQUIVEL Al Hydrox/Mg Hydrox/Simethicone 15 ml 01/27/22 05:25 01/29/22 11:44 Alum-Mag Hydroxide-Simethicone [id number]/5ml Oral Liqd 30 Ml PO 15 ml Q4H PRN Administration Indigestion Dextrose 50 ml 01/16/22 07:43 01/17/22 18:04 Dextrose 50% In Water (25gm) 50 Ml Syringe IV 10 ml Q30MIN PRN Administration Hypoglycemia Protocol Docusate Sodium 100 mg 01/22/22 11:00 02/01/22 09:49 Docusate Sodium 100 Mg Cap PO 100 mg BID CA Administration Epoetin Sushil-epbx 20,000 unit 01/23/22 12:00 01/27/22 13:00 Epoetin Sushil-Epbx 10,000 Unit/1 Ml Vial SUB-Q 20,000 unit JUANITO PRN Administration hemodialysis Hydralazine HCl 10 mg 01/16/22 07:45 01/20/22 21:57 Hydralazine 20 Mg/1 Ml Inj IV 10 mg Q4HR PRN Administration Hypertension Sodium Chloride 100 mls @ 999 mls/hr 01/19/22 23:03 Nacl 0.9% IV JUANITO PRN Hypotension Insulin Human Lispro 0 unit 01/18/22 16:30 02/01/22 09:26 Insulin Lispro 100 Unit/Ml SUB-Q Not Given ACHS [facility] Protocol Ondansetron HCl 4 mg 01/11/22 15:30 01/22/22 12:34 Ondansetron 4 Mg/2 Ml Inj IV 4 mg Q8H PRN Administration Nausea And Vomiting Ondansetron HCl 8 mg 01/24/22 11:54 01/24/22 13:20 Ondansetron 8 Mg Odt Tab PO 8 mg Q8H PRN Administration Nausea And Vomiting Pantoprazole Sodium 40 mg 01/20/22 10:00 02/01/22 09:49 Pantoprazole 40 Mg Tab PO 40 mg BID CA Administration Sodium Chloride 10 ml 01/11/22 22:00 02/01/22 09:50 Sodium Chloride 0.9% 10 Ml Flush Syringe IV 10 ml BID CA Administration Sodium Chloride 10 ml 01/11/22 16:00 Sodium Chloride 0.9% 10 Ml Flush Syringe IV PRN PRN LINE FLUSH
--- NOTE | 2022-02-01 14:54 | Progress Note ---
Assessment and Plan This is a 62-year-old male with ESRD on HD, HTN, CABG x2, aortic dissection s/p thoracic aortic stent, BPH and DM admitted with GI bleeding ICU course to date: 01/15: Patient was transferred to ICU for closer monitoring yesterday afternoon after second episode of GI bleeding was noted and he had a repeat CTA ab domen/pelvis. Patient's hemoglobin dropped to 5 yesterday and was given 2 units PRBC. GI recommends obtaining another CTA if recurrence of GI bleeding noted. 01/16: Patient will get HD today and possibly 25 DC tomorrow. Added hydralazine as needed for hypertension. Started D10 drip due to persistent hypoglycemia. 01/17: Patient remains stable, no s/s of any active bleeding overnight. H&H is st able. Plan for repeat Colonoscopy today by GI. Continue D10w for hypoglycemia and trend CBC 01/18: s/p repeat colonoscopy, diverticuli noted throughout the colon but no evidence of any active bleeding. No bloody stools reported for over 48hrs, H&H and vital signs are stable. GI and general surgery recommendations noted. If bleeding reoccur patient's only option is a total colectomy since patient is not a candidate for any angiography intervention due to history of aortic dissection. Continue PPI, and continue to trend CBC. Advance diet as tolerated, will D/C D10w gtt if patient tolerates PO intake. Continue BG check ACHS, avoid hypoglycemia. Plan for HD today per Nephro. D/W [facility] patient is stable for transfer to Telemetry. 01/19: Patient seen and examined clinically stable, discussed with surgery and also with all the specialties involved in the case.reviewed GI and Surgery notes. Patient not a candidate for any IR procedure. Surgery only option and awaiting next bleed if it happens. Even with bleeding in the past, hemodynamically patient has been stable. Also discussed with the sister and explained the clinical condition of findings she verbalized understanding plan at this time is for discharge of patient back to the facility 01/20: Late entry, awaiting discharge to facility. 01/21: Patient seen and examined, resting comfortable. No new compliant. No new Bleeding reported. H/H stable. 01/22: No new bleeding, awaiting placement, continue supportive care. 01/23: Continue supportive care. No further bleeding noted. Anticipate discharge in a.m. if placement is obtained In summary of visit the patient came in with rectal bleed requiring transfusion. GI evaluated the patient also diverticulosis. Surgery evaluated the patient no planned intervention at this time but if patient rebleeds will need a total colectomy. In the meantime patient is currently waiting for placement 01/24: Continue supportive care. Complaints of abdominal pain and some nausea this morning. Change Zofran to ODT. Continue pantoprazole. Discussed with case management regarding placement today. Case management will be following up with [facility] (where pt presented from) as to why patient cannot return back to facility. 01/25: No acute overnight issues. Awaiting placement. Discussed with CM. 01/26: No overnight events. Awaiting placement. Discussed with CM on rounds this AM. plan [facility]dialysis center vs home w/hhc. 01/27: No overnight events. Patient undergoing dialysis today. Difficulties placing this patient, original facility is not excepting this patient. Working with case management for resolution. 01/28: No overnight events. Awaiting placement and OP dialysis arrangements. 01/29: No overnight events. Awaiting placement and OP dialysis arrangements. 01/30: Elevated K= 6.1, ordered Kionex, insulin, d50, albuterol. Repeat BMP ordered for 1500. Dialysis planned today. Placement and OP dialysis arrangements pending. Assessment and Plan GI: LGIB, moderate protein calorie malnutrition/ Diverticulosis -GI, IR, surgery consulted, appreciate recommendations -Abdomen pelvis CT showed previous placement of thoracic aortic stent graft, 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 Collaterals presumably chronic, gallstones -S/p EGD and 01/12 which showed normal esophagus, mild erythematous mucosa in the antrum of of the body, biopsies obtained, normal duodenum, biopsies obtained and no source of GI bleeding found -S/p colonoscopy on 01/12 due to feeling poor quality however likely diverticular bleed -01/13 CTA abdomen/pelvis showed mild diverticular disease throughout the colon with endoluminal opacification of nearly all of the colon suggesting oral contrast however patient did have a history of oral contrast administration in addition To saturations would include carious excretion of contrast from the gallbladder however this appears out of proportion therefore hemorrhage should be considered, no clear source is identified, redemonstrated vascular disease without change -01/15 CTA abdomen/pelvis previous placement of thoracic aortic stent graft with 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 See report for details -General surgery recommendations noted. -If bleeding reoccur patient's only option is a total colectomy since patient is not a candidate for any angiography intervention due to history of aortic dissection. -Continue PPI, and continue to trend CBC -Advance diet as tolerated : ESRD on HD, h/o BPH -Nephrology consulted, appreciate recommendations -HD per nephrology -Monitor intake and output -Renally dose medications -Avoid nephrotoxic medications -Trend BMP Cardiac: h/o HTN, CABG x2, thoracic aortic aneurysm s/p repair -Hydralazine prn -Blood pressure monitoring per protocol Respiratory: Acute hypoxic respiratory failure -Supplemental oxygen as needed -SPO2 monitor per protocol -Pulmonary hygiene Endo: Hypoglycemia, h/o DM -probably due to NPO status -On D10w gtt -Plan to advance diet as tolerated -will D/C D10w gtt if patient tolerates PO intake. -Continue BG check ACHS -avoid hypoglycemia -Continue hypoglycemic protocol Heme: Acute on chronic anemia of chronic disease, GIB -Presented with GI bleed -Multiple episodes of GI bleed noted throughout stay -S/p 5 unit prbc -h/h q 8 hours -Trend CBC -Transfuse hemoglobin less than 7 Subjective Date of service: 02/01/22 Principal diagnosis: End-stage renal disease, gastrointestinal bleeding Objective - Constitutional Vitals: Vital Signs - 12hr 02/01/22 02/01/22 02/01/22 04:00 07:53 12:00 Temperature 98.4 F 98.3 F Pulse Rate 91 H 88 Respiratory 18 18 Rate Blood Pressure 150/89 Blood Pressure 148/90 [Right] O2 Sat by Pulse 100 100 98 Oximetry - Labs CBC & Chem 7: 01/30/22 05:57 01/31/22 04:48 Labs: Abnormal lab results 02/01/22 02/01/22 Range/Units 07:55 12:11 POC Glucose 127 H 108 H (70-105) mg/dL
[2022-02-02] MEDS: ALUM-MAG HYDROXIDE-SIMETHICONE 200-200-20MG/5ML ORAL LIQD 30 ML PO PRN (00:30)
[2022-02-02] MEDS: INSULIN LISPRO 100 UNIT/ML SUB-Q SCH ×4 (08:07→22:21)
--- NOTE | 2022-02-02 08:14 | Progress Note ---
Assessment and Plan 1. ESRD: Patient is on maintenance hemodialysis, MWF schedule. Hemodialysis: 01/13, 01/16, 01/18, 01/19(UF only), 01/20, 01/21(UF only), 01/23, 01/25, 01/27, 01/30, 02/01. 2. FEN: Volume overload, UF with HD as tolerated. Limit fluid intake. Hyperkalemia, Kayexalate as needed, on HD. Monitor lytes and volume status. 3. 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 Collaterals presumably chronic, gallstones. S/p EGD and Colonoscopy. Suspect diverticular, recurrent episodes requiring several units of blood. Seen by General Surgery. Epogen with HD. PPI, trend CBC. 4. Acute hypoxic respiratory failure: Supplemental oxygen as needed. Volume control thru HD. Monitor. 5. DM with Hypoglycemia: Monitor. 6. Hypertension: Adjust meds as needed. Volume control. Monitor BP. Subjective: Patient was seen and examined at the bedside. Doing ok. Examination: General appearance: well-developed, appears stated age, not in distress HEENT: no icterus Neck: trachea midline Respiratory: ctab Heart: S1S2, regular, no murmur Abdomen: soft, bowel sounds heard, NT, no palpable mass Integumentary: LE stasis changes noted Neurologic: conversing, able to move extremities Ext: trace ext edema Hemodialysis access: R IJ tunnel catheter Subjective Date of service: 02/02/22 Principal diagnosis: End-stage renal disease, gastrointestinal bleeding Objective - Vital Signs Vital signs: Vital Signs - 12hr 02/01/22 02/02/22 23:24 04:00 Temperature 98.7 F Pulse Rate 96 H Respiratory 18 Rate Blood Pressure 150/88 [Right] O2 Sat by Pulse 98 100 Oximetry - Lab 01/30/22 05:57 02/02/22 11:40 Most recent lab results Calcium 8.6 mg/dL (8.4-10.2) 01/31/22 04:48 Phosphorus 4.90 mg/dL (2.5-4.5) H 01/30/22 05:57 Magnesium 1.90 mg/dL (1.7-2.3) 01/16/22 04:07 Medications & Allergies - Medications Allergies/Adverse Reactions: Allergies No Known Allergies Allergy (Verified 01/11/22 09:20) Home Medications: Home Medications Medication Instructions Recorded Confirmed Last Taken Type Tamsulosin [Flomax] 0.4 mg PO QDAY #30 cap 01/07/20 01/16/22 Unknown Rx Bacitracin Zinc Oint [Antibiotic 1 applicatio TP BID #1 tube 03/21/20 01/16/22 Unknown Rx Oint] Benzonatate [Tessalon Perles] 100 mg PO Q8HR PRN #20 capsule 03/21/20 01/16/22 Unknown Rx Acetaminophen [Tylenol] 325 mg PO Q6H PRN 01/16/22 01/16/22 Unknown History Atorvastatin [Lipitor] 80 mg PO QHS 01/16/22 01/16/22 Unknown History Calcium Acetate [Phoslo] 667 mg PO QDAY 01/16/22 01/16/22 Unknown History Ergocalciferol (Vitamin D2) 1,250 mcg PO QDAY 01/16/22 01/16/22 Unknown History [Drisdol] Glycerin/Propylene Glycol 30 ml OP QDAY PRN 01/16/22 01/16/22 Unknown History [Artificial Tears Drops] Insulin Lispro [Admelog] See Protocol SQ ACHS 01/16/22 01/16/22 Unknown History Lactobacillus Acidophilus 0.5 mg PO QDAY 01/16/22 01/16/22 Unknown History [Acidophilus Probiotic] Lactulose [Cephulac] 20 gm PO BID PRN 01/16/22 01/16/22 Unknown History Mag Hydrox/Aluminum Hyd/Simeth 10 ml PO QDAY 01/16/22 01/16/22 Unknown History [Mylanta Maximum Strength Pkt] Melatonin [Melatonin 5MG CAP] 5 mg PO QHS 01/16/22 01/16/22 Unknown History Torsemide [Demadex] 100 mg PO QDAY 01/16/22 01/16/22 Unknown History Vit B Comp No.3/Folic/C/Biotin 1 tab PO QDAY 01/16/22 01/16/22 Unknown History [Prisca-Theodore Rx Tablet] megestroL [Megestrol] 40 mg PO QDAY 01/16/22 01/16/22 Unknown History polyethylene glycoL 3350 [Miralax 17 gm PO BID PRN 01/16/22 01/16/22 Unknown History 3350] Amiodarone [Cordarone 200 MG TAB] 200 mg PO QDAY #30 tab 01/19/22 Unknown Rx Pantoprazole [Protonix TAB] 40 mg PO BID #60 tablet 01/19/22 Unknown Rx amLODIPine 10 mg PO QDAY #30 tab 01/19/22 Unknown Rx carvediloL [Coreg] 6.25 mg PO BID #60 tab 01/19/22 Unknown Rx Active Medications: Generic Name Dose Route Start Last Admin Trade Name Freq PRN Reason Stop Dose Admin Acetaminophen 650 mg 01/11/22 16:00 01/31/22 07:32 Acetaminophen 325 Mg Tab PO 650 mg Q4H PRN Administration Pain MILD(1-3)/Fever >100.5/ESQUIVEL Al Hydrox/Mg Hydrox/Simethicone 15 ml 01/27/22 05:25 02/02/22 00:30 Alum-Mag Hydroxide-Simethicone [id number] Oral Liqd 30 Ml PO 15 ml Q4H PRN Administration Indigestion Dextrose 50 ml 01/16/22 07:43 01/17/22 18:04 Dextrose 50% In Water (25gm) 50 Ml Syringe IV 10 ml Q30MIN PRN Administration Hypoglycemia Protocol Docusate Sodium 100 mg 01/22/22 11:00 02/01/22 22:35 Docusate Sodium 100 Mg Cap PO 100 mg BID CA Administration Epoetin Sushil-epbx 20,000 unit 01/23/22 12:00 01/27/22 13:00 Epoetin Sushil-Epbx 10,000 Unit/1 Ml Vial SUB-Q 20,000 unit JUANITO PRN Administration hemodialysis Hydralazine HCl 10 mg 01/16/22 07:45 01/20/22 21:57 Hydralazine 20 Mg/1 Ml Inj IV 10 mg Q4HR PRN Administration Hypertension Sodium Chloride 100 mls @ 999 mls/hr 01/19/22 23:03 Nacl 0.9% IV JUANITO PRN Hypotension Insulin Human Lispro 0 unit 01/18/22 16:30 02/02/22 08:07 Insulin Lispro 100 Unit/Ml SUB-Q Not Given ACHS CA Protocol Ondansetron HCl 4 mg 01/11/22 15:30 01/22/22 12:34 Ondansetron 4 Mg/2 Ml Inj IV 4 mg Q8H PRN Administration Nausea And Vomiting Ondansetron HCl 8 mg 01/24/22 11:54 01/24/22 13:20 Ondansetron 8 Mg Odt Tab PO 8 mg Q8H PRN Administration Nausea And Vomiting Pantoprazole Sodium 40 mg 01/20/22 10:00 02/01/22 22:36 Pantoprazole 40 Mg Tab PO 40 mg BID CA Administration Sodium Chloride 10 ml 01/11/22 22:00 02/01/22 22:36 Sodium Chloride 0.9% 10 Ml Flush Syringe IV 10 ml BID CA Administration Sodium Chloride 10 ml 01/11/22 16:00 Sodium Chloride 0.9% 10 Ml Flush Syringe IV PRN PRN LINE FLUSH
[2022-02-02] MEDS: PANTOPRAZOLE 40 MG TAB PO SCH ×2 (09:05→22:12)
[2022-02-02] MEDS: DOCUSATE SODIUM 100 MG CAP PO SCH ×2 (09:05→22:12)
[2022-02-02 12:34] LABS: Calcium 8.5 mg/dL (8.4-10.2)
--- NOTE | 2022-02-02 23:53 | Progress Note ---
Assessment and Plan This is a 62-year-old male with ESRD on HD, HTN, CABG x2, aortic dissection s/p thoracic aortic stent, BPH and DM admitted with GI bleeding ICU course to date: 01/15: Patient was transferred to ICU for closer monitoring yesterday afternoon after second episode of GI bleeding was noted and he had a repeat CTA ab domen/pelvis. Patient's hemoglobin dropped to 5 yesterday and was given 2 units PRBC. GI recommends obtaining another CTA if recurrence of GI bleeding noted. 01/16: Patient will get HD today and possibly 25 DC tomorrow. Added hydralazine as needed for hypertension. Started D10 drip due to persistent hypoglycemia. 01/17: Patient remains stable, no s/s of any active bleeding overnight. H&H is st able. Plan for repeat Colonoscopy today by GI. Continue D10w for hypoglycemia and trend CBC 01/18: s/p repeat colonoscopy, diverticuli noted throughout the colon but no evidence of any active bleeding. No bloody stools reported for over 48hrs, H&H and vital signs are stable. GI and general surgery recommendations noted. If bleeding reoccur patient's only option is a total colectomy since patient is not a candidate for any angiography intervention due to history of aortic dissection. Continue PPI, and continue to trend CBC. Advance diet as tolerated, will D/C D10w gtt if patient tolerates PO intake. Continue BG check ACHS, avoid hypoglycemia. Plan for HD today per Nephro. D/W [facility] patient is stable for transfer to Telemetry. 01/19: Patient seen and examined clinically stable, discussed with surgery and also with all the specialties involved in the case.reviewed GI and Surgery notes. Patient not a candidate for any IR procedure. Surgery only option and awaiting next bleed if it happens. Even with bleeding in the past, hemodynamically patient has been stable. Also discussed with the sister and explained the clinical condition of findings she verbalized understanding plan at this time is for discharge of patient back to the facility 01/20: Late entry, awaiting discharge to facility. 01/21: Patient seen and examined, resting comfortable. No new compliant. No new Bleeding reported. H/H stable. 01/22: No new bleeding, awaiting placement, continue supportive care. 01/23: Continue supportive care. No further bleeding noted. Anticipate discharge in a.m. if placement is obtained In summary of visit the patient came in with rectal bleed requiring transfusion. GI evaluated the patient also diverticulosis. Surgery evaluated the patient no planned intervention at this time but if patient rebleeds will need a total colectomy. In the meantime patient is currently waiting for placement 01/24: Continue supportive care. Complaints of abdominal pain and some nausea this morning. Change Zofran to ODT. Continue pantoprazole. Discussed with case management regarding placement today. Case management will be following up with [facility] (where pt presented from) as to why patient cannot return back to facility. 01/25: No acute overnight issues. Awaiting placement. Discussed with CM. 01/26: No overnight events. Awaiting placement. Discussed with CM on rounds this AM. plan [facility]dialysis center vs home w/hhc. 01/27: No overnight events. Patient undergoing dialysis today. Difficulties placing this patient, original facility is not excepting this patient. Working with case management for resolution. 01/28: No overnight events. Awaiting placement and OP dialysis arrangements. 01/29: No overnight events. Awaiting placement and OP dialysis arrangements. 01/30: Elevated K= 6.1, ordered Kionex, insulin, d50, albuterol. Repeat BMP ordered for 1500. Dialysis planned today. Placement and OP dialysis arrangements pending. Assessment and Plan GI: LGIB, moderate protein calorie malnutrition/ Diverticulosis -GI, IR, surgery consulted, appreciate recommendations -Abdomen pelvis CT showed previous placement of thoracic aortic stent graft, 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 Collaterals presumably chronic, gallstones -S/p EGD and 01/12 which showed normal esophagus, mild erythematous mucosa in the antrum of of the body, biopsies obtained, normal duodenum, biopsies obtained and no source of GI bleeding found -S/p colonoscopy on 01/12 due to feeling poor quality however likely diverticular bleed -01/13 CTA abdomen/pelvis showed mild diverticular disease throughout the colon with endoluminal opacification of nearly all of the colon suggesting oral contrast however patient did have a history of oral contrast administration in addition To saturations would include carious excretion of contrast from the gallbladder however this appears out of proportion therefore hemorrhage should be considered, no clear source is identified, redemonstrated vascular disease without change -01/15 CTA abdomen/pelvis previous placement of thoracic aortic stent graft with 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 See report for details -General surgery recommendations noted. -If bleeding reoccur patient's only option is a total colectomy since patient is not a candidate for any angiography intervention due to history of aortic dissection. -Continue PPI, and continue to trend CBC -Advance diet as tolerated : ESRD on HD, h/o BPH -Nephrology consulted, appreciate recommendations -HD per nephrology -Monitor intake and output -Renally dose medications -Avoid nephrotoxic medications -Trend BMP Cardiac: h/o HTN, CABG x2, thoracic aortic aneurysm s/p repair -Hydralazine prn -Blood pressure monitoring per protocol Respiratory: Acute hypoxic respiratory failure -Supplemental oxygen as needed -SPO2 monitor per protocol -Pulmonary hygiene Endo: Hypoglycemia, h/o DM -probably due to NPO status -On D10w gtt -Plan to advance diet as tolerated -will D/C D10w gtt if patient tolerates PO intake. -Continue BG check ACHS -avoid hypoglycemia -Continue hypoglycemic protocol Heme: Acute on chronic anemia of chronic disease, GIB -Presented with GI bleed -Multiple episodes of GI bleed noted throughout stay -S/p 5 unit prbc -h/h q 8 hours -Trend CBC -Transfuse hemoglobin less than 7 Subjective Date of service: 02/02/22 Principal diagnosis: End-stage renal disease, gastrointestinal bleeding Objective - Constitutional Vitals: Vital Signs - 12hr 02/02/22 02/02/22 02/02/22 11:54 16:36 20:42 Temperature 98.2 F 98.2 F 98.8 F Pulse Rate 90 89 69 Respiratory 18 18 18 Rate Blood Pressure 153/89 190/84 Blood Pressure 158/99 [Right] O2 Sat by Pulse 100 94 98 Oximetry 02/02/22 02/02/22 22:20 23:43 Temperature 98.6 F Pulse Rate 94 H 96 H Respiratory 18 Rate Blood Pressure 161/98 Blood Pressure 162/99 [Right] O2 Sat by Pulse 98 Oximetry - Labs CBC & Chem 7: 01/30/22 05:57 02/02/22 11:40 Labs: Abnormal lab results 02/02/22 02/02/22 Range/Units 07:25 11:40 Chloride 97.0 L (98-107) mmol/L Carbon Dioxide 35 H (22-30) mmol/L BUN 22 H (9-20) mg/dL Creatinine 4.3 H (0.8-1.3) mg/dL POC Glucose 62 L (70-105) mg/dL
[2022-02-03] MEDS: INSULIN LISPRO 100 UNIT/ML SUB-Q SCH ×4 (08:16→22:41)
--- NOTE | 2022-02-03 08:29 | Progress Note ---
Assessment and Plan 1. ESRD: Patient is on maintenance hemodialysis, MWF schedule. Hemodialysis: 01/13, 01/16, 01/18, 01/19(UF only), 01/20, 01/21(UF only), 01/23, 01/25, 01/27, 01/30, 02/01. HD today. 2. FEN: Volume overload, UF with HD as tolerated. Limit fluid intake. Hyperkalemia, Kayexalate as needed, on HD. Monitor lytes and volume status. 3. 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 Collaterals presumably chronic, gallstones. S/p EGD and Colonoscopy. Suspect diverticular, recurrent episodes requiring several units of blood. Seen by General Surgery. Epogen with HD. PPI, trend CBC. 4. Acute hypoxic respiratory failure: Supplemental oxygen as needed. Volume control thru HD. Monitor. 5. DM with Hypoglycemia: Monitor. 6. Hypertension: Adjust meds as needed. Volume control. Monitor BP. Subjective: Patient was seen and examined at the bedside. Doing ok. Examination: General appearance: well-developed, appears stated age, not in distress HEENT: no icterus Neck: trachea midline Respiratory: ctab Heart: S1S2, regular, no murmur Abdomen: soft, bowel sounds heard, NT, no palpable mass Integumentary: LE stasis changes noted Neurologic: conversing, able to move extremities Ext: trace UE edema Hemodialysis access: R IJ tunnel catheter Subjective Date of service: 02/03/22 Principal diagnosis: End-stage renal disease, gastrointestinal bleeding Objective - Vital Signs Vital signs: Vital Signs - 12hr 02/02/22 02/02/22 02/02/22 20:42 22:00 22:20 Temperature 98.8 F Pulse Rate 69 94 H Respiratory 18 Rate Blood Pressure 190/84 Blood Pressure 162/99 [Right] O2 Sat by Pulse 98 96 Oximetry 02/02/22 02/03/22 02/03/22 23:43 03:42 06:42 Temperature 98.6 F 99.2 F Pulse Rate 96 H 94 H 99 H Respiratory 18 18 Rate Blood Pressure 161/98 180/105 Blood Pressure 155/86 [Right] O2 Sat by Pulse 98 99 Oximetry - Lab 01/30/22 05:57 02/04/22 07:58 Most recent lab results Calcium 8.5 mg/dL (8.4-10.2) 02/02/22 11:40 Phosphorus 4.90 mg/dL (2.5-4.5) H 01/30/22 05:57 Magnesium 1.90 mg/dL (1.7-2.3) 01/16/22 04:07 Medications & Allergies - Medications Allergies/Adverse Reactions: Allergies No Known Allergies Allergy (Verified 01/11/22 09:20) Home Medications: Home Medications Medication Instructions Recorded Confirmed Last Taken Type Tamsulosin [Flomax] 0.4 mg PO QDAY #30 cap 01/07/20 01/16/22 Unknown Rx Bacitracin Zinc Oint [Antibiotic 1 applicatio TP BID #1 tube 03/21/20 01/16/22 Unknown Rx Oint] Benzonatate [Tessalon Perles] 100 mg PO Q8HR PRN #20 capsule 03/21/20 01/16/22 Unknown Rx Acetaminophen [Tylenol] 325 mg PO Q6H PRN 01/16/22 01/16/22 Unknown History Atorvastatin [Lipitor] 80 mg PO QHS 01/16/22 01/16/22 Unknown History Calcium Acetate [Phoslo] 667 mg PO QDAY 01/16/22 01/16/22 Unknown History Ergocalciferol (Vitamin D2) 1,250 mcg PO QDAY 01/16/22 01/16/22 Unknown History [Drisdol] Glycerin/Propylene Glycol 30 ml OP QDAY PRN 01/16/22 01/16/22 Unknown History [Artificial Tears Drops] Insulin Lispro [Admelog] See Protocol SQ ACHS 01/16/22 01/16/22 Unknown History Lactobacillus Acidophilus 0.5 mg PO QDAY 01/16/22 01/16/22 Unknown History [Acidophilus Probiotic] Lactulose [Cephulac] 20 gm PO BID PRN 01/16/22 01/16/22 Unknown History Mag Hydrox/Aluminum Hyd/Simeth 10 ml PO QDAY 01/16/22 01/16/22 Unknown History [Mylanta Maximum Strength Pkt] Melatonin [Melatonin 5MG CAP] 5 mg PO QHS 01/16/22 01/16/22 Unknown History Torsemide [Demadex] 100 mg PO QDAY 01/16/22 01/16/22 Unknown History Vit B Comp No.3/Folic/C/Biotin 1 tab PO QDAY 01/16/22 01/16/22 Unknown History [Prisca-Theodore Rx Tablet] megestroL [Megestrol] 40 mg PO QDAY 01/16/22 01/16/22 Unknown History polyethylene glycoL 3350 [Miralax 17 gm PO BID PRN 01/16/22 01/16/22 Unknown History 3350] Amiodarone [Cordarone 200 MG TAB] 200 mg PO QDAY #30 tab 01/19/22 Unknown Rx Pantoprazole [Protonix TAB] 40 mg PO BID #60 tablet 01/19/22 Unknown Rx amLODIPine 10 mg PO QDAY #30 tab 01/19/22 Unknown Rx carvediloL [Coreg] 6.25 mg PO BID #60 tab 01/19/22 Unknown Rx Active Medications: Generic Name Dose Route Start Last Admin Trade Name Freq PRN Reason Stop Dose Admin Acetaminophen 650 mg 01/11/22 16:00 01/31/22 07:32 Acetaminophen 325 Mg Tab PO 650 mg Q4H PRN Administration Pain MILD(1-3)/Fever >100.5/ESQUIVEL Al Hydrox/Mg Hydrox/Simethicone 15 ml 01/27/22 05:25 02/02/22 00:30 Alum-Mag Hydroxide-Simethicone 517-144-90dp/5ml Oral Liqd 30 Ml PO 15 ml Q4H PRN Administration Indigestion Dextrose 50 ml 01/16/22 07:43 01/17/22 18:04 Dextrose 50% In Water (25gm) 50 Ml Syringe IV 10 ml Q30MIN PRN Administration Hypoglycemia Protocol Docusate Sodium 100 mg 01/22/22 11:00 02/02/22 22:12 Docusate Sodium 100 Mg Cap PO 100 mg BID CA Administration Epoetin Sushil-epbx 20,000 unit 01/23/22 12:00 01/27/22 13:00 Epoetin Sushil-Epbx 10,000 Unit/1 Ml Vial SUB-Q 20,000 unit JUANITO PRN Administration hemodialysis Hydralazine HCl 10 mg 01/16/22 07:45 01/20/22 21:57 Hydralazine 20 Mg/1 Ml Inj IV 10 mg Q4HR PRN Administration Hypertension Sodium Chloride 100 mls @ 999 mls/hr 01/19/22 23:03 Nacl 0.9% IV JUANITO PRN Hypotension Insulin Human Lispro 0 unit 01/18/22 16:30 02/02/22 22:21 Insulin Lispro 100 Unit/Ml SUB-Q Not Given ACHS [facility] Protocol Ondansetron HCl 4 mg 01/11/22 15:30 01/22/22 12:34 Ondansetron 4 Mg/2 Ml Inj IV 4 mg Q8H PRN Administration Nausea And Vomiting Ondansetron HCl 8 mg 01/24/22 11:54 01/24/22 13:20 Ondansetron 8 Mg Odt Tab PO 8 mg Q8H PRN Administration Nausea And Vomiting Pantoprazole Sodium 40 mg 01/20/22 10:00 02/02/22 22:12 Pantoprazole 40 Mg Tab PO 40 mg BID CA Administration Sodium Chloride 10 ml 01/11/22 22:00 02/02/22 22:21 Sodium Chloride 0.9% 10 Ml Flush Syringe IV 10 ml BID CA Administration Sodium Chloride 10 ml 01/11/22 16:00 Sodium Chloride 0.9% 10 Ml Flush Syringe IV PRN PRN LINE FLUSH
[2022-02-03] MEDS: PANTOPRAZOLE 40 MG TAB PO SCH ×2 (09:15→22:39)
[2022-02-03] MEDS: DOCUSATE SODIUM 100 MG CAP PO SCH ×2 (09:15→22:39)
--- NOTE | 2022-02-03 12:57 | Progress Note ---
Assessment and Plan This is a 62-year-old male with ESRD on HD, HTN, CABG x2, aortic dissection s/p thoracic aortic stent, BPH and DM admitted with GI bleeding ICU course to date: 01/15: Patient was transferred to ICU for closer monitoring yesterday afternoon after second episode of GI bleeding was noted and he had a repeat CTA ab domen/pelvis. Patient's hemoglobin dropped to 5 yesterday and was given 2 units PRBC. GI recommends obtaining another CTA if recurrence of GI bleeding noted. 01/16: Patient will get HD today and possibly 25 DC tomorrow. Added hydralazine as needed for hypertension. Started D10 drip due to persistent hypoglycemia. 01/17: Patient remains stable, no s/s of any active bleeding overnight. H&H is st able. Plan for repeat Colonoscopy today by GI. Continue D10w for hypoglycemia and trend CBC 01/18: s/p repeat colonoscopy, diverticuli noted throughout the colon but no evidence of any active bleeding. No bloody stools reported for over 48hrs, H&H and vital signs are stable. GI and general surgery recommendations noted. If bleeding reoccur patient's only option is a total colectomy since patient is not a candidate for any angiography intervention due to history of aortic dissection. Continue PPI, and continue to trend CBC. Advance diet as tolerated, will D/C D10w gtt if patient tolerates PO intake. Continue BG check ACHS, avoid hypoglycemia. Plan for HD today per Nephro. [facility] patient is stable for transfer to Telemetry. 01/19: Patient seen and examined clinically stable, discussed with surgery and also with all the specialties involved in the case.reviewed GI and Surgery notes. Patient not a candidate for any IR procedure. Surgery only option and awaiting next bleed if it happens. Even with bleeding in the past, hemodynamically patient has been stable. Also discussed with the sister and explained the clinical condition of findings she verbalized understanding plan at this time is for discharge of patient back to the facility 01/20: Late entry, awaiting discharge to facility. 01/21: Patient seen and examined, resting comfortable. No new compliant. No new Bleeding reported. H/H stable. 01/22: No new bleeding, awaiting placement, continue supportive care. 01/23: Continue supportive care. No further bleeding noted. Anticipate discharge in a.m. if placement is obtained In summary of visit the patient came in with rectal bleed requiring transfusion. GI evaluated the patient also diverticulosis. Surgery evaluated the patient no planned intervention at this time but if patient rebleeds will need a total colectomy. In the meantime patient is currently waiting for placement 01/24: Continue supportive care. Complaints of abdominal pain and some nausea this morning. Change Zofran to ODT. Continue pantoprazole. Discussed with case management regarding placement today. Case management will be following up with [facility] (where pt presented from) as to why patient cannot return back to facility. 01/25: No acute overnight issues. Awaiting placement. Discussed with CM. 01/26: No overnight events. Awaiting placement. Discussed with CM on rounds this AM. plan [facility]dialysis center vs home w/hhc. 01/27: No overnight events. Patient undergoing dialysis today. Difficulties placing this patient, original facility is not excepting this patient. Working with case management for resolution. 01/28: No overnight events. Awaiting placement and OP dialysis arrangements. 01/29: No overnight events. Awaiting placement and OP dialysis arrangements. 01/30: Elevated K= 6.1, ordered Kionex, insulin, d50, albuterol. Repeat BMP ordered for 1500. Dialysis planned today. Placement and OP dialysis arrangements pending. 02/03: family planned for appeal Assessment and Plan GI: LGIB, moderate protein calorie malnutrition/ Diverticulosis -GI, IR, surgery consulted, appreciate recommendations -Abdomen pelvis CT showed previous placement of thoracic aortic stent graft, 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 Co llaterals presumably chronic, gallstones -S/p EGD and 01/12 which showed normal esophagus, mild erythematous mucosa in the antrum of of the body, biopsies obtained, normal duodenum, biopsies obtained and no source of GI bleeding found -S/p colonoscopy on 01/12 due to feeling poor quality however likely diverticular bleed -01/13 CTA abdomen/pelvis showed mild diverticular disease throughout the colon with endoluminal opacification of nearly all of the colon suggesting oral contrast however patient did have a history of oral contrast administration in addition To saturations would include carious excretion of contrast from the gallbladder however this appears out of proportion therefore hemorrhage should be considered, no clear source is identified, redemonstrated vascular disease without change -01/15 CTA abdomen/pelvis previous placement of thoracic aortic stent graft with 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 See report for details -General surgery recommendations noted. -If bleeding reoccur patient's only option is a total colectomy since patient is not a candidate for any angiography intervention due to history of aortic dissection. -Continue PPI, and continue to trend CBC -Advance diet as tolerated : ESRD on HD, h/o BPH -Nephrology consulted, appreciate recommendations -HD per nephrology -Monitor intake and output -Renally dose medications -Avoid nephrotoxic medications -Trend BMP Cardiac: h/o HTN, CABG x2, thoracic aortic aneurysm s/p repair -Hydralazine prn -Blood pressure monitoring per protocol Respiratory: Acute hypoxic respiratory failure -Supplemental oxygen as needed -SPO2 monitor per protocol -Pulmonary hygiene Endo: Hypoglycemia, h/o DM -probably due to NPO status -On D10w gtt -Plan to advance diet as tolerated -will D/C D10w gtt if patient tolerates PO intake. -Continue BG check ACHS -avoid hypoglycemia -Continue hypoglycemic protocol Heme: Acute on chronic anemia of chronic disease, GIB -Presented with GI bleed -Multiple episodes of GI bleed noted throughout stay -S/p 5 unit prbc -h/h q 8 hours -Trend CBC -Transfuse hemoglobin less than 7 Subjective Date of service: 02/03/22 Principal diagnosis: End-stage renal disease, gastrointestinal bleeding Objective - Constitutional Vitals: Vital Signs - 12hr 02/03/22 02/03/22 02/03/22 03:42 06:42 07:53 Temperature 99.2 F 98.9 F Pulse Rate 94 H 99 H 92 H Respiratory 18 18 Rate Blood Pressure 180/105 158/94 Blood Pressure 155/86 [Right] O2 Sat by Pulse 99 100 Oximetry 02/03/22 12:04 Temperature 98.3 F Pulse Rate 92 H Respiratory 18 Rate Blood Pressure 150/95 Blood Pressure [Right] O2 Sat by Pulse 99 Oximetry - Labs CBC & Chem 7: 01/30/22 05:57 02/04/22 07:58
[2022-02-03] MEDS: EPOETIN ALFA-EPBX 10,000 UNIT/1 ML VIAL SUB-Q PRN (20:00)
[2022-02-04 09:09] LABS: Calcium 8.7 mg/dL (8.4-10.2)
[2022-02-04] MEDS: INSULIN LISPRO 100 UNIT/ML SUB-Q SCH ×4 (10:03→22:11)
[2022-02-04] MEDS: PANTOPRAZOLE 40 MG TAB PO SCH ×2 (10:12→22:06)
[2022-02-04] MEDS: DOCUSATE SODIUM 100 MG CAP PO SCH ×2 (10:12→22:06)
--- NOTE | 2022-02-04 10:52 | Progress Note ---
Assessment and Plan 1. ESRD: Patient is on maintenance hemodialysis, MWF schedule. Hemodialysis: 01/13, 01/16, 01/18, 01/19(UF only), 01/20, 01/21(UF only), 01/23, 01/25, 01/27, 01/30, 02/01, 02/03. 2. FEN: Volume overload, UF with HD as tolerated. Limit fluid intake. Hyperkalemia, Kayexalate as needed, on HD. Monitor lytes and volume status. 3. 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 Collaterals presumably chronic, gallstones. S/p EGD and Colonoscopy. Suspect diverticular, recurrent episodes requiring several units of blood. Seen by General Surgery. Epogen with HD. PPI, trend CBC. 4. Acute hypoxic respiratory failure: Supplemental oxygen as needed. Volume control thru HD. Monitor. 5. DM with Hypoglycemia: Monitor. 6. Hypertension: Adjust meds as needed. Volume control. Monitor BP. Subjective: Patient was seen and examined at the bedside. Doing ok. Examination: General appearance: well-developed, appears stated age, not in distress HEENT: no icterus Neck: trachea midline Respiratory: ctab Heart: S1S2, regular, no murmur Abdomen: soft, bowel sounds heard, NT, no palpable mass Integumentary: LE stasis changes noted Neurologic: conversing, able to move extremities Ext: no edema Hemodialysis access: R IJ tunnel catheter Subjective Date of service: 02/04/22 Principal diagnosis: End-stage renal disease, gastrointestinal bleeding Objective - Vital Signs Vital signs: Vital Signs - 12hr 02/03/22 02/03/22 02/04/22 23:01 23:19 03:36 Temperature 98.8 F 98.8 F Pulse Rate 88 97 H Respiratory 17 16 Rate Blood Pressure 141/79 126/87 O2 Sat by Pulse 100 100 100 Oximetry 02/04/22 10:00 Temperature Pulse Rate Respiratory Rate Blood Pressure O2 Sat by Pulse 97 Oximetry - Lab 01/30/22 05:57 02/04/22 07:58 Most recent lab results Calcium 8.7 mg/dL (8.4-10.2) 02/04/22 07:58 Phosphorus 4.90 mg/dL (2.5-4.5) H 01/30/22 05:57 Magnesium 1.90 mg/dL (1.7-2.3) 01/16/22 04:07 Medications & Allergies - Medications Allergies/Adverse Reactions: Allergies No Known Allergies Allergy (Verified 01/11/22 09:20) Home Medications: Home Medications Medication Instructions Recorded Confirmed Last Taken Type Tamsulosin [Flomax] 0.4 mg PO QDAY #30 cap 01/07/20 01/16/22 Unknown Rx Bacitracin Zinc Oint [Antibiotic 1 applicatio TP BID #1 tube 03/21/20 01/16/22 Unknown Rx Oint] Benzonatate [Tessalon Perles] 100 mg PO Q8HR PRN #20 capsule 03/21/20 01/16/22 Unknown Rx Acetaminophen [Tylenol] 325 mg PO Q6H PRN 01/16/22 01/16/22 Unknown History Atorvastatin [Lipitor] 80 mg PO QHS 01/16/22 01/16/22 Unknown History Calcium Acetate [Phoslo] 667 mg PO QDAY 01/16/22 01/16/22 Unknown History Ergocalciferol (Vitamin D2) 1,250 mcg PO QDAY 01/16/22 01/16/22 Unknown History [Drisdol] Glycerin/Propylene Glycol 30 ml OP QDAY PRN 01/16/22 01/16/22 Unknown History [Artificial Tears Drops] Insulin Lispro [Admelog] See Protocol SQ ACHS 01/16/22 01/16/22 Unknown History Lactobacillus Acidophilus 0.5 mg PO QDAY 01/16/22 01/16/22 Unknown History [Acidophilus Probiotic] Lactulose [Cephulac] 20 gm PO BID PRN 01/16/22 01/16/22 Unknown History Mag Hydrox/Aluminum Hyd/Simeth 10 ml PO QDAY 01/16/22 01/16/22 Unknown History [Mylanta Maximum Strength Pkt] Melatonin [Melatonin 5MG CAP] 5 mg PO QHS 01/16/22 01/16/22 Unknown History Torsemide [Demadex] 100 mg PO QDAY 01/16/22 01/16/22 Unknown History Vit B Comp No.3/Folic/C/Biotin 1 tab PO QDAY 01/16/22 01/16/22 Unknown History [Prisca-Theodore Rx Tablet] megestroL [Megestrol] 40 mg PO QDAY 01/16/22 01/16/22 Unknown History polyethylene glycoL 3350 [Miralax 17 gm PO BID PRN 01/16/22 01/16/22 Unknown History 3350] Amiodarone [Cordarone 200 MG TAB] 200 mg PO QDAY #30 tab 01/19/22 Unknown Rx Pantoprazole [Protonix TAB] 40 mg PO BID #60 tablet 01/19/22 Unknown Rx amLODIPine 10 mg PO QDAY #30 tab 01/19/22 Unknown Rx carvediloL [Coreg] 6.25 mg PO BID #60 tab 01/19/22 Unknown Rx Active Medications: Generic Name Dose Route Start Last Admin Trade Name Freq PRN Reason Stop Dose Admin Acetaminophen 650 mg 01/11/22 16:00 01/31/22 07:32 Acetaminophen 325 Mg Tab PO 650 mg Q4H PRN Administration Pain MILD(1-3)/Fever >100.5/ESQUIVEL Al Hydrox/Mg Hydrox/Simethicone 15 ml 01/27/22 05:25 02/02/22 00:30 Alum-Mag Hydroxide-Simethicone [id number]/5ml Oral Liqd 30 Ml PO 15 ml Q4H PRN Administration Indigestion Dextrose 50 ml 01/16/22 07:43 01/17/22 18:04 Dextrose 50% In Water (25gm) 50 Ml Syringe IV 10 ml Q30MIN PRN Administration Hypoglycemia Protocol Docusate Sodium 100 mg 01/22/22 11:00 02/04/22 10:12 Docusate Sodium 100 Mg Cap PO 100 mg BID CA Administration Epoetin Sushil-epbx 20,000 unit 01/23/22 12:00 02/03/22 20:00 Epoetin Sushil-Epbx 10,000 Unit/1 Ml Vial SUB-Q 20,000 unit JUANITO PRN Administration hemodialysis Hydralazine HCl 10 mg 01/16/22 07:45 01/20/22 21:57 Hydralazine 20 Mg/1 Ml Inj IV 10 mg Q4HR PRN Administration Hypertension Sodium Chloride 100 mls @ 999 mls/hr 01/19/22 23:03 Nacl 0.9% IV JUANITO PRN Hypotension Insulin Human Lispro 0 unit 01/18/22 16:30 02/04/22 10:03 Insulin Lispro 100 Unit/Ml SUB-Q Not Given ACHS [facility] Protocol Ondansetron HCl 4 mg 01/11/22 15:30 01/22/22 12:34 Ondansetron 4 Mg/2 Ml Inj IV 4 mg Q8H PRN Administration Nausea And Vomiting Ondansetron HCl 8 mg 01/24/22 11:54 01/24/22 13:20 Ondansetron 8 Mg Odt Tab PO 8 mg Q8H PRN Administration Nausea And Vomiting Pantoprazole Sodium 40 mg 01/20/22 10:00 02/04/22 10:12 Pantoprazole 40 Mg Tab PO 40 mg BID CA Administration Sodium Chloride 10 ml 01/11/22 22:00 02/04/22 10:12 Sodium Chloride 0.9% 10 Ml Flush Syringe IV 10 ml BID CA Administration Sodium Chloride 10 ml 01/11/22 16:00 Sodium Chloride 0.9% 10 Ml Flush Syringe IV PRN PRN LINE FLUSH
--- NOTE | 2022-02-04 12:04 | Progress Note ---
Subjective Date of service: 02/04/22 Principal diagnosis: End-stage renal disease, gastrointestinal bleeding Objective - Constitutional Vitals: Vital Signs - 12hr 02/04/22 02/04/22 03:36 10:00 Temperature 98.8 F Pulse Rate 97 H Respiratory 16 Rate Blood Pressure 126/87 O2 Sat by Pulse 100 97 Oximetry - Labs CBC & Chem 7: 01/30/22 05:57 02/04/22 07:58 Labs: Abnormal lab results 02/04/22 Range/Units 07:58 BUN 24 H (9-20) mg/dL Creatinine 4.0 H (0.8-1.3) mg/dL Glucose 71 L (75-100) mg/dL
[2022-02-05] MEDS: INSULIN LISPRO 100 UNIT/ML SUB-Q SCH ×4 (07:37→21:01)
[2022-02-05] MEDS: DOCUSATE SODIUM 100 MG CAP PO SCH ×2 (09:41→21:02)
[2022-02-05] MEDS: PANTOPRAZOLE 40 MG TAB PO SCH ×2 (09:41→21:01)
[2022-02-05] MEDS: ONDANSETRON 4 MG/2 ML INJ IV PRN (11:33)
--- NOTE | 2022-02-05 12:47 | Progress Note ---
Assessment and Plan This is a 62-year-old male with ESRD on HD, HTN, CABG x2, aortic dissection s/p thoracic aortic stent, BPH and DM admitted with GI bleeding ICU course to date: 01/15: Patient was transferred to ICU for closer monitoring yesterday afternoon after second episode of GI bleeding was noted and he had a repeat CTA ab domen/pelvis. Patient's hemoglobin dropped to 5 yesterday and was given 2 units PRBC. GI recommends obtaining another CTA if recurrence of GI bleeding noted. 01/16: Patient will get HD today and possibly 25 DC tomorrow. Added hydralazine as needed for hypertension. Started D10 drip due to persistent hypoglycemia. 01/17: Patient remains stable, no s/s of any active bleeding overnight. H&H is st able. Plan for repeat Colonoscopy today by GI. Continue D10w for hypoglycemia and trend CBC 01/18: s/p repeat colonoscopy, diverticuli noted throughout the colon but no evidence of any active bleeding. No bloody stools reported for over 48hrs, H&H and vital signs are stable. GI and general surgery recommendations noted. If bleeding reoccur patient's only option is a total colectomy since patient is not a candidate for any angiography intervention due to history of aortic dissection. Continue PPI, and continue to trend CBC. Advance diet as tolerated, will D/C D10w gtt if patient tolerates PO intake. Continue BG check ACHS, avoid hypoglycemia. Plan for HD today per Nephro. D/W [facility] patient is stable for transfer to Telemetry. 01/19: Patient seen and examined clinically stable, discussed with surgery and also with all the specialties involved in the case.reviewed GI and Surgery notes. Patient not a candidate for any IR procedure. Surgery only option and awaiting next bleed if it happens. Even with bleeding in the past, hemodynamically patient has been stable. Also discussed with the sister and explained the clinical condition of findings she verbalized understanding plan at this time is for discharge of patient back to the facility 01/20: Late entry, awaiting discharge to facility. 01/21: Patient seen and examined, resting comfortable. No new compliant. No new Bleeding reported. H/H stable. 01/22: No new bleeding, awaiting placement, continue supportive care. 01/23: Continue supportive care. No further bleeding noted. Anticipate discharge in a.m. if placement is obtained In summary of visit the patient came in with rectal bleed requiring transfusion. GI evaluated the patient also diverticulosis. Surgery evaluated the patient no planned intervention at this time but if patient rebleeds will need a total colectomy. In the meantime patient is currently waiting for placement 01/24: Continue supportive care. Complaints of abdominal pain and some nausea this morning. Change Zofran to ODT. Continue pantoprazole. Discussed with case management regarding placement today. Case management will be following up with [facility] (where pt presented from) as to why patient cannot return back to facility. 01/25: No acute overnight issues. Awaiting placement. Discussed with CM. 01/26: No overnight events. Awaiting placement. Discussed with CM on rounds this AM. plan [facility]dialysis center vs home w/hhc. 01/27: No overnight events. Patient undergoing dialysis today. Difficulties placing this patient, original facility is not excepting this patient. Working with case management for resolution. 01/28: No overnight events. Awaiting placement and OP dialysis arrangements. 01/29: No overnight events. Awaiting placement and OP dialysis arrangements. 01/30: Elevated K= 6.1, ordered Kionex, insulin, d50, albuterol. Repeat BMP ordered for 1500. Dialysis planned today. Placement and OP dialysis arrangements pending. Assessment and Plan GI: LGIB, moderate protein calorie malnutrition/ Diverticulosis -GI, IR, surgery consulted, appreciate recommendations -Abdomen pelvis CT showed previous placement of thoracic aortic stent graft, 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 Collaterals presumably chronic, gallstones -S/p EGD and 01/12 which showed normal esophagus, mild erythematous mucosa in the antrum of of the body, biopsies obtained, normal duodenum, biopsies obtained and no source of GI bleeding found -S/p colonoscopy on 01/12 due to feeling poor quality however likely diverticular bleed -01/13 CTA abdomen/pelvis showed mild diverticular disease throughout the colon with endoluminal opacification of nearly all of the colon suggesting oral contrast however patient did have a history of oral contrast administration in addition To saturations would include carious excretion of contrast from the gallbladder however this appears out of proportion therefore hemorrhage should be considered, no clear source is identified, redemonstrated vascular disease without change -01/15 CTA abdomen/pelvis previous placement of thoracic aortic stent graft with 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 See report for details -General surgery recommendations noted. -If bleeding reoccur patient's only option is a total colectomy since patient is not a candidate for any angiography intervention due to history of aortic dissection. -Continue PPI, and continue to trend CBC -Advance diet as tolerated : ESRD on HD, h/o BPH -Nephrology consulted, appreciate recommendations -HD per nephrology -Monitor intake and output -Renally dose medications -Avoid nephrotoxic medications -Trend BMP Cardiac: h/o HTN, CABG x2, thoracic aortic aneurysm s/p repair -Hydralazine prn -Blood pressure monitoring per protocol Respiratory: Acute hypoxic respiratory failure -Supplemental oxygen as needed -SPO2 monitor per protocol -Pulmonary hygiene Endo: Hypoglycemia, h/o DM -probably due to NPO status -On D10w gtt -Plan to advance diet as tolerated -will D/C D10w gtt if patient tolerates PO intake. -Continue BG check ACHS -avoid hypoglycemia -Continue hypoglycemic protocol Heme: Acute on chronic anemia of chronic disease, GIB -Presented with GI bleed -Multiple episodes of GI bleed noted throughout stay -S/p 5 unit prbc -h/h q 8 hours -Trend CBC -Transfuse hemoglobin less than 7 Subjective Date of service: 02/05/22 Principal diagnosis: End-stage renal disease, gastrointestinal bleeding Objective - Constitutional Vitals: Vital Signs - 12hr 02/05/22 02/05/22 02/05/22 03:44 08:05 10:00 Temperature 97.8 F 98.4 F Pulse Rate 98 H 100 H Respiratory 20 16 Rate Blood Pressure 165/97 153/83 O2 Sat by Pulse 97 99 96 Oximetry - Labs CBC & Chem 7: 01/30/22 05:57 02/04/22 07:58 Labs: Abnormal lab results 02/05/22 Range/Units 07:23 POC Glucose 69 L (70-105) mg/dL
--- NOTE | 2022-02-05 13:49 | Progress Note ---
Assessment and Plan 1. ESRD: Patient is on maintenance hemodialysis, MWF schedule. Hemodialysis: 01/13, 01/16, 01/18, 01/19(UF only), 01/20, 01/21(UF only), 01/23, 01/25, 01/27, 01/30, 02/01, 02/03. 2. FEN: Volume overload, UF with HD as tolerated. Volume status is better. Limit fluid intake. Hyperkalemia, Kayexalate as needed, on HD. Monitor lytes and volume status. 3. 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 Collaterals presumably chronic, gallstones. S/p EGD and Colonoscopy. Suspect diverticular, recurrent episodes requiring several units of blood. Seen by General Surgery. Epogen with HD. PPI, trend CBC. 4. Acute hypoxic respiratory failure: Supplemental oxygen as needed. Volume control thru HD. Monitor. 5. DM with Hypoglycemia: Monitor. 6. Hypertension: Adjust meds as needed. Volume control. Monitor BP. Subjective: Patient was seen and examined at the bedside. Doing ok. Examination: General appearance: well-developed, appears stated age, not in distress HEENT: no icterus Neck: trachea midline Respiratory: ctab Heart: S1S2, regular, no murmur Abdomen: soft, bowel sounds heard, NT, no palpable mass Integumentary: LE stasis changes noted Neurologic: conversing, able to move extremities Ext: no edema Hemodialysis access: R IJ tunnel catheter Subjective Date of service: 02/05/22 Principal diagnosis: End-stage renal disease, gastrointestinal bleeding Objective - Vital Signs Vital signs: Vital Signs - 12hr 02/05/22 02/05/22 02/05/22 03:44 08:05 10:00 Temperature 97.8 F 98.4 F Pulse Rate 98 H 100 H Respiratory 20 16 Rate Blood Pressure 165/97 153/83 O2 Sat by Pulse 97 99 96 Oximetry - Lab 01/30/22 05:57 02/04/22 07:58 Most recent lab results Calcium 8.7 mg/dL (8.4-10.2) 02/04/22 07:58 Phosphorus 4.90 mg/dL (2.5-4.5) H 01/30/22 05:57 Magnesium 1.90 mg/dL (1.7-2.3) 01/16/22 04:07 Medications & Allergies - Medications Allergies/Adverse Reactions: Allergies No Known Allergies Allergy (Verified 01/11/22 09:20) Home Medications: Home Medications Medication Instructions Recorded Confirmed Last Taken Type Tamsulosin [Flomax] 0.4 mg PO QDAY #30 cap 01/07/20 01/16/22 Unknown Rx Bacitracin Zinc Oint [Antibiotic 1 applicatio TP BID #1 tube 03/21/20 01/16/22 Unknown Rx Oint] Benzonatate [Tessalon Perles] 100 mg PO Q8HR PRN #20 capsule 03/21/20 01/16/22 Unknown Rx Acetaminophen [Tylenol] 325 mg PO Q6H PRN 01/16/22 01/16/22 Unknown History Atorvastatin [Lipitor] 80 mg PO QHS 01/16/22 01/16/22 Unknown History Calcium Acetate [Phoslo] 667 mg PO QDAY 01/16/22 01/16/22 Unknown History Ergocalciferol (Vitamin D2) 1,250 mcg PO QDAY 01/16/22 01/16/22 Unknown History [Drisdol] Glycerin/Propylene Glycol 30 ml OP QDAY PRN 01/16/22 01/16/22 Unknown History [Artificial Tears Drops] Insulin Lispro [Admelog] See Protocol SQ ACHS 01/16/22 01/16/22 Unknown History Lactobacillus Acidophilus 0.5 mg PO QDAY 01/16/22 01/16/22 Unknown History [Acidophilus Probiotic] Lactulose [Cephulac] 20 gm PO BID PRN 01/16/22 01/16/22 Unknown History Mag Hydrox/Aluminum Hyd/Simeth 10 ml PO QDAY 01/16/22 01/16/22 Unknown History [Mylanta Maximum Strength Pkt] Melatonin [Melatonin 5MG CAP] 5 mg PO QHS 01/16/22 01/16/22 Unknown History Torsemide [Demadex] 100 mg PO QDAY 01/16/22 01/16/22 Unknown History Vit B Comp No.3/Folic/C/Biotin 1 tab PO QDAY 01/16/22 01/16/22 Unknown History [Prisca-Theodore Rx Tablet] megestroL [Megestrol] 40 mg PO QDAY 01/16/22 01/16/22 Unknown History polyethylene glycoL 3350 [Miralax 17 gm PO BID PRN 01/16/22 01/16/22 Unknown History 3350] Amiodarone [Cordarone 200 MG TAB] 200 mg PO QDAY #30 tab 01/19/22 Unknown Rx Pantoprazole [Protonix TAB] 40 mg PO BID #60 tablet 01/19/22 Unknown Rx amLODIPine 10 mg PO QDAY #30 tab 01/19/22 Unknown Rx carvediloL [Coreg] 6.25 mg PO BID #60 tab 01/19/22 Unknown Rx Active Medications: Generic Name Dose Route Start Last Admin Trade Name Freq PRN Reason Stop Dose Admin Acetaminophen 650 mg 01/11/22 16:00 01/31/22 07:32 Acetaminophen 325 Mg Tab PO 650 mg Q4H PRN Administration Pain MILD(1-3)/Fever >100.5/ESQUIVEL Al Hydrox/Mg Hydrox/Simethicone 15 ml 01/27/22 05:25 02/02/22 00:30 Alum-Mag Hydroxide-Simethicone [id number]/5ml Oral Liqd 30 Ml PO 15 ml Q4H PRN Administration Indigestion Dextrose 50 ml 01/16/22 07:43 01/17/22 18:04 Dextrose 50% In Water (25gm) 50 Ml Syringe IV 10 ml Q30MIN PRN Administration Hypoglycemia Protocol Docusate Sodium 100 mg 01/22/22 11:00 02/05/22 09:41 Docusate Sodium 100 Mg Cap PO 100 mg BID CA Administration Epoetin Sushil-epbx 20,000 unit 01/23/22 12:00 02/03/22 20:00 Epoetin Sushil-Epbx 10,000 Unit/1 Ml Vial SUB-Q 20,000 unit JUANITO PRN Administration hemodialysis Erythromycin 1 applic 02/05/22 15:00 Erythromycin 5 Mg/1 Gm Ophth Oint OU 02/05/22 15:01 QDAY ONE Hydralazine HCl 10 mg 01/16/22 07:45 01/20/22 21:57 Hydralazine 20 Mg/1 Ml Inj IV 10 mg Q4HR PRN Administration Hypertension Sodium Chloride 100 mls @ 999 mls/hr 01/19/22 23:03 Nacl 0.9% IV JUANITO PRN Hypotension Insulin Human Lispro 0 unit 01/18/22 16:30 02/05/22 11:41 Insulin Lispro 100 Unit/Ml SUB-Q Not Given ACHS [facility] Protocol Ondansetron HCl 4 mg 01/11/22 15:30 02/05/22 11:33 Ondansetron 4 Mg/2 Ml Inj IV 4 mg Q8H PRN Administration Nausea And Vomiting Ondansetron HCl 8 mg 01/24/22 11:54 01/24/22 13:20 Ondansetron 8 Mg Odt Tab PO 8 mg Q8H PRN Administration Nausea And Vomiting Pantoprazole Sodium 40 mg 01/20/22 10:00 02/05/22 09:41 Pantoprazole 40 Mg Tab PO 40 mg BID CA Administration Sodium Chloride 10 ml 01/11/22 22:00 02/05/22 09:41 Sodium Chloride 0.9% 10 Ml Flush Syringe IV 10 ml BID CA Administration Sodium Chloride 10 ml 01/11/22 16:00 Sodium Chloride 0.9% 10 Ml Flush Syringe IV PRN PRN LINE FLUSH
[2022-02-05] MEDS: ALUM-MAG HYDROXIDE-SIMETHICONE 200-200-20MG/5ML ORAL LIQD 30 ML PO PRN (14:06)
[2022-02-05] MEDS ORDERED: ERYTHROMYCIN 5 MG/1 GM OPHTH OINT OU ONE (15:00)
[2022-02-05] MEDS: ACETAMINOPHEN 325 MG TAB PO PRN (17:59)
[2022-02-06] MEDS: ALUM-MAG HYDROXIDE-SIMETHICONE 200-200-20MG/5ML ORAL LIQD 30 ML PO PRN (09:12)
[2022-02-06] MEDS: PANTOPRAZOLE 40 MG TAB PO SCH ×2 (09:12→22:17)
[2022-02-06] MEDS: INSULIN LISPRO 100 UNIT/ML SUB-Q SCH ×3 (09:20→22:18)
[2022-02-06] MEDS: DOCUSATE SODIUM 100 MG CAP PO SCH ×2 (09:20→22:17)
[2022-02-06] MEDS: EPOETIN ALFA-EPBX 10,000 UNIT/1 ML VIAL SUB-Q PRN (12:33)
--- NOTE | 2022-02-06 13:13 | Progress Note ---
Assessment and Plan 1. ESRD: Patient is on maintenance hemodialysis, MWF schedule. Hemodialysis: 01/13, 01/16, 01/18, 01/19(UF only), 01/20, 01/21(UF only), 01/23, 01/25, 01/27, 01/30, 02/01, 02/03, 02/06. 2. FEN: Volume overload, UF with HD as tolerated. Volume status is better. Limit fluid intake. Hyperkalemia, Kayexalate as needed, on HD. Monitor lytes and volume status. 3. 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 Collaterals presumably chronic, gallstones. S/p EGD and Colonoscopy. Suspect diverticular, recurrent episodes requiring several units of blood. Seen by General Surgery. Epogen with HD. PPI, trend CBC. 4. Acute hypoxic respiratory failure: Supplemental oxygen as needed. Volume control thru HD. Monitor. 5. DM with Hypoglycemia: Monitor. 6. Hypertension: Adjust meds as needed. Volume control. Monitor BP. Subjective: Patient was seen and examined at the bedside. Doing ok. Examination: General appearance: well-developed, appears stated age, not in distress HEENT: no icterus Neck: trachea midline Respiratory: ctab Heart: S1S2, regular, no murmur Abdomen: soft, bowel sounds heard, NT, no palpable mass Integumentary: LE stasis changes noted Neurologic: conversing, able to move extremities Ext: no edema Hemodialysis access: R IJ tunnel catheter Subjective Date of service: 02/06/22 Principal diagnosis: End-stage renal disease, gastrointestinal bleeding Objective - Vital Signs Vital signs: Vital Signs - 12hr 02/06/22 02/06/22 02/06/22 03:49 07:57 09:25 Temperature 97.9 F 98.2 F 98.6 F Pulse Rate 82 91 H 92 H Respiratory 18 18 Rate Blood Pressure 144/85 150/99 160/103 O2 Sat by Pulse 98 100 Oximetry O2 Sat by Pulse 98 Oximetry [ Throughout] 02/06/22 02/06/22 02/06/22 09:45 10:00 10:15 Temperature Pulse Rate 87 82 84 Respiratory Rate Blood Pressure 158/93 146/88 143/88 O2 Sat by Pulse 96 Oximetry O2 Sat by Pulse Oximetry [ Throughout] 02/06/22 02/06/22 02/06/22 10:30 10:45 11:00 Temperature Pulse Rate 92 H 89 88 Respiratory Rate Blood Pressure 148/101 155/96 140/88 O2 Sat by Pulse Oximetry O2 Sat by Pulse Oximetry [ Throughout] 02/06/22 02/06/22 02/06/22 11:15 11:30 11:45 Temperature Pulse Rate 87 86 88 Respiratory Rate Blood Pressure 126/75 133/80 128/83 O2 Sat by Pulse Oximetry O2 Sat by Pulse Oximetry [ Throughout] 02/06/22 02/06/22 02/06/22 12:00 12:15 12:30 Temperature Pulse Rate 96 H 89 88 Respiratory Rate Blood Pressure 123/76 128/78 127/81 O2 Sat by Pulse Oximetry O2 Sat by Pulse Oximetry [ Throughout] 02/06/22 02/06/22 12:40 12:53 Temperature 97.9 F Pulse Rate 90 85 Respiratory 20 Rate Blood Pressure 144/83 143/81 O2 Sat by Pulse Oximetry O2 Sat by Pulse 98 Oximetry [ Throughout] - Lab 01/30/22 05:57 02/04/22 07:58 Most recent lab results Calcium 8.7 mg/dL (8.4-10.2) 02/04/22 07:58 Phosphorus 4.90 mg/dL (2.5-4.5) H 01/30/22 05:57 Magnesium 1.90 mg/dL (1.7-2.3) 01/16/22 04:07 Medications & Allergies - Medications Allergies/Adverse Reactions: Allergies No Known Allergies Allergy (Verified 01/11/22 09:20) Home Medications: Home Medications Medication Instructions Recorded Confirmed Last Taken Type Tamsulosin [Flomax] 0.4 mg PO QDAY #30 cap 01/07/20 01/16/22 Unknown Rx Bacitracin Zinc Oint [Antibiotic 1 applicatio TP BID #1 tube 03/21/20 01/16/22 Unknown Rx Oint] Benzonatate [Tessalon Perles] 100 mg PO Q8HR PRN #20 capsule 03/21/20 01/16/22 Unknown Rx Acetaminophen [Tylenol] 325 mg PO Q6H PRN 01/16/22 01/16/22 Unknown History Atorvastatin [Lipitor] 80 mg PO QHS 01/16/22 01/16/22 Unknown History Calcium Acetate [Phoslo] 667 mg PO QDAY 01/16/22 01/16/22 Unknown History Ergocalciferol (Vitamin D2) 1,250 mcg PO QDAY 01/16/22 01/16/22 Unknown History [Drisdol] Glycerin/Propylene Glycol 30 ml OP QDAY PRN 01/16/22 01/16/22 Unknown History [Artificial Tears Drops] Insulin Lispro [Admelog] See Protocol SQ ACHS 01/16/22 01/16/22 Unknown History Lactobacillus Acidophilus 0.5 mg PO QDAY 01/16/22 01/16/22 Unknown History [Acidophilus Probiotic] Lactulose [Cephulac] 20 gm PO BID PRN 01/16/22 01/16/22 Unknown History Mag Hydrox/Aluminum Hyd/Simeth 10 ml PO QDAY 01/16/22 01/16/22 Unknown History [Mylanta Maximum Strength Pkt] Melatonin [Melatonin 5MG CAP] 5 mg PO QHS 01/16/22 01/16/22 Unknown History Torsemide [Demadex] 100 mg PO QDAY 01/16/22 01/16/22 Unknown History Vit B Comp No.3/Folic/C/Biotin 1 tab PO QDAY 01/16/22 01/16/22 Unknown History [Prisca-Theodore Rx Tablet] megestroL [Megestrol] 40 mg PO QDAY 01/16/22 01/16/22 Unknown History polyethylene glycoL 3350 [Miralax 17 gm PO BID PRN 01/16/22 01/16/22 Unknown History 3350] Amiodarone [Cordarone 200 MG TAB] 200 mg PO QDAY #30 tab 01/19/22 Unknown Rx Pantoprazole [Protonix TAB] 40 mg PO BID #60 tablet 01/19/22 Unknown Rx amLODIPine 10 mg PO QDAY #30 tab 01/19/22 Unknown Rx carvediloL [Coreg] 6.25 mg PO BID #60 tab 01/19/22 Unknown Rx Active Medications: Generic Name Dose Route Start Last Admin Trade Name Freq PRN Reason Stop Dose Admin Acetaminophen 650 mg 01/11/22 16:00 02/05/22 17:59 Acetaminophen 325 Mg Tab PO 650 mg Q4H PRN Administration Pain MILD(1-3)/Fever >100.5/ESQUIVEL Al Hydrox/Mg Hydrox/Simethicone 15 ml 01/27/22 05:25 02/06/22 09:12 Alum-Mag Hydroxide-Simethicone [phone]/5ml Oral Liqd 30 Ml PO 15 ml Q4H PRN Administration Indigestion Dextrose 50 ml 01/16/22 07:43 01/17/22 18:04 Dextrose 50% In Water (25gm) 50 Ml Syringe IV 10 ml Q30MIN PRN Administration Hypoglycemia Protocol Docusate Sodium 100 mg 01/22/22 11:00 02/06/22 09:20 Docusate Sodium 100 Mg Cap PO Not Given BID CA Epoetin Sushil-epbx 20,000 unit 01/23/22 12:00 02/06/22 12:33 Epoetin Sushil-Epbx 10,000 Unit/1 Ml Vial SUB-Q 20,000 unit JUANITO PRN Administration hemodialysis Hydralazine HCl 10 mg 01/16/22 07:45 01/20/22 21:57 Hydralazine 20 Mg/1 Ml Inj IV 10 mg Q4HR PRN Administration Hypertension Sodium Chloride 100 mls @ 999 mls/hr 01/19/22 23:03 Nacl 0.9% IV JUANITO PRN Hypotension Insulin Human Lispro 0 unit 01/18/22 16:30 02/06/22 09:20 Insulin Lispro 100 Unit/Ml SUB-Q Not Given ACHS [facility] Protocol Ondansetron HCl 4 mg 01/11/22 15:30 02/05/22 11:33 Ondansetron 4 Mg/2 Ml Inj IV 4 mg Q8H PRN Administration Nausea And Vomiting Ondansetron HCl 8 mg 01/24/22 11:54 01/24/22 13:20 Ondansetron 8 Mg Odt Tab PO 8 mg Q8H PRN Administration Nausea And Vomiting Pantoprazole Sodium 40 mg 01/20/22 10:00 02/06/22 09:12 Pantoprazole 40 Mg Tab PO 40 mg BID CA Administration Sodium Chloride 10 ml 01/11/22 22:00 02/06/22 09:13 Sodium Chloride 0.9% 10 Ml Flush Syringe IV 10 ml BID CA Administration Sodium Chloride 10 ml 01/11/22 16:00 Sodium Chloride 0.9% 10 Ml Flush Syringe IV PRN PRN LINE FLUSH
--- NOTE | 2022-02-06 14:50 | Progress Note ---
Assessment and Plan This is a 62-year-old male with ESRD on HD, HTN, CABG x2, aortic dissection s/p thoracic aortic stent, BPH and DM admitted with GI bleeding ICU course to date: 01/15: Patient was transferred to ICU for closer monitoring yesterday afternoon after second episode of GI bleeding was noted and he had a repeat CTA ab domen/pelvis. Patient's hemoglobin dropped to 5 yesterday and was given 2 units PRBC. GI recommends obtaining another CTA if recurrence of GI bleeding noted. 01/16: Patient will get HD today and possibly 25 DC tomorrow. Added hydralazine as needed for hypertension. Started D10 drip due to persistent hypoglycemia. 01/17: Patient remains stable, no s/s of any active bleeding overnight. H&H is st able. Plan for repeat Colonoscopy today by GI. Continue D10w for hypoglycemia and trend CBC 01/18: s/p repeat colonoscopy, diverticuli noted throughout the colon but no evidence of any active bleeding. No bloody stools reported for over 48hrs, H&H and vital signs are stable. GI and general surgery recommendations noted. If bleeding reoccur patient's only option is a total colectomy since patient is not a candidate for any angiography intervention due to history of aortic dissection. Continue PPI, and continue to trend CBC. Advance diet as tolerated, will D/C D10w gtt if patient tolerates PO intake. Continue BG check ACHS, avoid hypoglycemia. Plan for HD today per Nephro. D/W [facility] patient is stable for transfer to Telemetry. 01/19: Patient seen and examined clinically stable, discussed with surgery and also with all the specialties involved in the case.reviewed GI and Surgery notes. Patient not a candidate for any IR procedure. Surgery only option and awaiting next bleed if it happens. Even with bleeding in the past, hemodynamically patient has been stable. Also discussed with the sister and explained the clinical condition of findings she verbalized understanding plan at this time is for discharge of patient back to the facility 01/20: Late entry, awaiting discharge to facility. 01/21: Patient seen and examined, resting comfortable. No new compliant. No new Bleeding reported. H/H stable. 01/22: No new bleeding, awaiting placement, continue supportive care. 01/23: Continue supportive care. No further bleeding noted. Anticipate discharge in a.m. if placement is obtained In summary of visit the patient came in with rectal bleed requiring transfusion. GI evaluated the patient also diverticulosis. Surgery evaluated the patient no planned intervention at this time but if patient rebleeds will need a total colectomy. In the meantime patient is currently waiting for placement 01/24: Continue supportive care. Complaints of abdominal pain and some nausea this morning. Change Zofran to ODT. Continue pantoprazole. Discussed with case management regarding placement today. Case management will be following up with [facility] (where pt presented from) as to why patient cannot return back to facility. 01/25: No acute overnight issues. Awaiting placement. Discussed with CM. 01/26: No overnight events. Awaiting placement. Discussed with CM on rounds this AM. plan [facility] center vs home w/hhc. 01/27: No overnight events. Patient undergoing dialysis today. Difficulties placing this patient, original facility is not excepting this patient. Working with case management for resolution. 01/28: No overnight events. Awaiting placement and OP dialysis arrangements. 01/29: No overnight events. Awaiting placement and OP dialysis arrangements. 01/30: Elevated K= 6.1, ordered Kionex, insulin, d50, albuterol. Repeat BMP ordered for 1500. Dialysis planned today. Placement and OP dialysis arrangements pending. -- Patient did not get accepted for SNF/[facility]. had peer to peer but denied. family planned for appeal. discharge pending on placement. clinically stable for dc Assessment and Plan GI: LGIB, moderate protein calorie malnutrition/ Diverticulosis -GI, IR, surgery consulted, appreciate recommendations -Abdomen pelvis CT showed previous placement of thoracic aortic stent graft, 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 Collaterals presumably chronic, gallstones -S/p EGD and 01/12 which showed normal esophagus, mild erythematous mucosa in the antrum of of the body, biopsies obtained, normal duodenum, biopsies obtained and no source of GI bleeding found -S/p colonoscopy on 01/12 due to feeling poor quality however likely diverticular bleed -01/13 CTA abdomen/pelvis showed mild diverticular disease throughout the colon with endoluminal opacification of nearly all of the colon suggesting oral c ontrast however patient did have a history of oral contrast administration in addition To saturations would include carious excretion of contrast from the gallbladder however this appears out of proportion therefore hemorrhage should be considered, no clear source is identified, redemonstrated vascular disease without change -01/15 CTA abdomen/pelvis previous placement of thoracic aortic stent graft with 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 See report for details -General surgery recommendations noted. -If bleeding reoccur patient's only option is a total colectomy since patient is not a candidate for any angiography intervention due to history of aortic dissection. -Continue PPI, and continue to trend CBC -Advance diet as tolerated : ESRD on HD, h/o BPH -Nephrology consulted, appreciate recommendations -HD per nephrology -Monitor intake and output -Renally dose medications -Avoid nephrotoxic medications -Trend BMP Cardiac: h/o HTN, CABG x2, thoracic aortic aneurysm s/p repair -Hydralazine prn -Blood pressure monitoring per protocol Respiratory: Acute hypoxic respiratory failure -Supplemental oxygen as needed -SPO2 monitor per protocol -Pulmonary hygiene Endo: Hypoglycemia, h/o DM -probably due to NPO status -On D10w gtt -Plan to advance diet as tolerated -will D/C D10w gtt if patient tolerates PO intake. -Continue BG check ACHS -avoid hypoglycemia -Continue hypoglycemic protocol Heme: Acute on chronic anemia of chronic disease, GIB -Presented with GI bleed -Multiple episodes of GI bleed noted throughout stay -S/p 5 unit prbc -h/h q 8 hours -Trend CBC -Transfuse hemoglobin less than 7 Subjective Date of service: 02/06/22 Principal diagnosis: End-stage renal disease, gastrointestinal bleeding Interval history: Patient seen and examined. Medical records and medication list reviewed. No acute event overnight noted by the RN. Patient denies any chest pain or difficulty breathing. Patient is tolerating diet. Discussed plan of care at bedside with patient. Clinically stable for discharge Discharge pending on placement Objective - Exam Narrative Exam: GENERAL: AAM lying on bed appeared to be in no discomfort. HEENT: Normocephalic. Atraumatic. No conjunctival congestion or icterus. Patient has moist mucous membranes. NECK: Supple. Trachea midline. CHEST/LUNGS: Clear to auscultated bilaterally, breathing nonlabored. No wheezes crackles or rhonchi. HEART/CARDIOVASCULAR: Regular in rate and rhythm. S1 and S2 positive. ABDOMEN: Abdomen is soft, nontender. Patient has normal bowel sounds. SKIN: There is no rash. Warm and dry. NEURO: No focal motor deficit. Follows command. MUSCULOSKELETAL: No joint effusion or tenderness. EXTRIMITY: No edema, no cyanosis or clubbing. PSYCH: Cooperative. - Constitutional Vitals: Vital Signs - 12hr 02/06/22 02/06/22 02/06/22 03:49 07:57 09:25 Temperature 97.9 F 98.2 F 98.6 F Pulse Rate 82 91 H 92 H Respiratory 18 18 Rate Blood Pressure 144/85 150/99 160/103 O2 Sat by Pulse 98 100 Oximetry O2 Sat by Pulse 98 Oximetry [ Throughout] 02/06/22 02/06/22 02/06/22 09:45 10:00 10:15 Temperature Pulse Rate 87 82 84 Respiratory Rate Blood Pressure 158/93 146/88 143/88 O2 Sat by Pulse 96 Oximetry O2 Sat by Pulse Oximetry [ Throughout] 02/06/22 02/06/22 02/06/22 10:30 10:45 11:00 Temperature Pulse Rate 92 H 89 88 Respiratory Rate Blood Pressure 148/101 155/96 140/88 O2 Sat by Pulse Oximetry O2 Sat by Pulse Oximetry [ Throughout] 02/06/22 02/06/22 02/06/22 11:15 11:30 11:45 Temperature Pulse Rate 87 86 88 Respiratory Rate Blood Pressure 126/75 133/80 128/83 O2 Sat by Pulse Oximetry O2 Sat by Pulse Oximetry [ Throughout] 02/06/22 02/06/22 02/06/22 12:00 12:15 12:30 Temperature Pulse Rate 96 H 89 88 Respiratory Rate Blood Pressure 123/76 128/78 127/81 O2 Sat by Pulse Oximetry O2 Sat by Pulse Oximetry [ Throughout] 02/06/22 02/06/22 12:40 12:53 Temperature 97.9 F Pulse Rate 90 85 Respiratory 20 Rate Blood Pressure 144/83 143/81 O2 Sat by Pulse Oximetry O2 Sat by Pulse 98 Oximetry [ Throughout] - Labs CBC & Chem 7: 01/30/22 05:57 02/04/22 07:58 Labs: Abnormal lab results 02/05/22 02/06/22 02/06/22 Range/Units 20:27 07:58 12:11 POC Glucose 120 H 69 L 107 H (70-105) mg/dL
[2022-02-07] MEDS: INSULIN LISPRO 100 UNIT/ML SUB-Q SCH ×4 (08:30→22:41)
--- NOTE | 2022-02-07 09:24 | Progress Note ---
Assessment and Plan Assessment and plan: This is a 62-year-old male with ESRD on HD, HTN, CABG x2, aortic dissection s/p thoracic aortic stent, BPH and DM admitted with GI bleeding ICU course to date: 01/15: Patient was transferred to ICU for closer monitoring yesterday afternoon after second episode of GI bleeding was noted and he had a repeat CTA abdomen/pelvis. Patient's hemoglobin dropped to 5 yesterday and was given 2 units PRBC. GI recommends obtaining another CTA if recurrence of GI bleeding noted. 01/16: Patient will get HD today and possibly 25 DC tomorrow. Added hydralazine as needed for hypertension. Started D10 drip due to persistent hypoglycemia. 01/17: Patient remains stable, no s/s of any active bleeding overnight. H&H is stable. Plan for repeat Colonoscopy today by GI. Continue D10w for hypoglycemia and trend CBC 01/18: s/p repeat colonoscopy, diverticuli noted throughout the colon but no evidence of any active bleeding. No bloody stools reported for over 48hrs, H&H and vital signs are stable. GI and general surgery recommendations noted. If bleeding reoccur patient's only option is a total colectomy since patient is not a candidate for any angiography intervention due to history of aortic dissection. Continue PPI, and continue to trend CBC. Advance diet as tolerated, will D/C D10w gtt if patient tolerates PO intake. Continue BG check ACHS, avoid hypoglycemia. Plan for HD today per Nephro. D/W CCM patient is stable for transfer to Telemetry. 01/19: Patient seen and examined clinically stable, discussed with surgery and also with all the specialties involved in the case.reviewed GI and Surgery notes. Patient not a candidate for any IR procedure. Surgery only option and a waiting next bleed if it happens. Even with bleeding in the past, hemodynamically patient has been stable. Also discussed with the sister and explained the clinical condition of findings she verbalized understanding plan at this time is for discharge of patient back to the facility 01/20: Late entry, awaiting discharge to facility. 01/21: Patient seen and examined, resting comfortable. No new compliant. No new Bleeding reported. H/H stable. 01/22: No new bleeding, awaiting placement, continue supportive care. 01/23: Continue supportive care. No further bleeding noted. Anticipate discharge in a.m. if placement is obtained In summary of visit the patient came in with rectal bleed requiring transfusion. GI evaluated the patient also diverticulosis. Surgery evaluated the patient no planned intervention at this time but if patient rebleeds will need a total colectomy. In the meantime patient is currently waiting for placement 01/24: Continue supportive care. Complaints of abdominal pain and some nausea this morning. Change Zofran to ODT. Continue pantoprazole. Discussed with case management regarding placement today. Case management will be following up with [facility] (where pt presented from) as to why patient cannot return back to facility. 01/25: No acute overnight issues. Awaiting placement. Discussed with CM. 01/26: No overnight events. Awaiting placement. Discussed with CM on rounds this AM. plan [facility] vs home w/hhc. 01/27: No overnight events. Patient undergoing dialysis today. Difficulties placing this patient, original facility is not excepting this patient. Working with case management for resolution. 01/28: No overnight events. Awaiting placement and OP dialysis arrangements. 01/29: No overnight events. Awaiting placement and OP dialysis arrangements. 01/30: Elevated K= 6.1, ordered Kionex, insulin, d50, albuterol. Repeat BMP o rdered for 1500. Dialysis planned today. Placement and OP dialysis arrangements pending. -- Patient did not get accepted for SNF/[facility]. had peer to peer but denied. family planned for appeal. discharge pending on placement. clinically stable for dc Assessment and Plan GI: LGIB, moderate protein calorie malnutrition/ Diverticulosis -GI, IR, surgery consulted, appreciate recommendations -Abdomen pelvis CT showed previous placement of thoracic aortic stent graft, 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 Collaterals presumably chronic, gallstones -S/p EGD and 01/12 which showed normal esophagus, mild erythematous mucosa in the antrum of of the body, biopsies obtained, normal duodenum, biopsies obtained and no source of GI bleeding found -S/p colonoscopy on 01/12 due to feeling poor quality however likely diverticular bleed -01/13 CTA abdomen/pelvis showed mild diverticular disease throughout the colon with endoluminal opacification of nearly all of the colon suggesting oral contrast however patient did have a history of oral contrast administration in addition To saturations would include carious excretion of contrast from the gallbladder however this appears out of proportion therefore hemorrhage should be considered, no clear source is identified, redemonstrated vascular disease without change -01/15 CTA abdomen/pelvis previous placement of thoracic aortic stent graft with 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 See report for details -General surgery recommendations noted. -If bleeding reoccur patient's only option is a total colectomy since patient is not a candidate for any angiography intervention due to history of aortic dissection. -Continue PPI, and continue to trend CBC -Advance diet as tolerated : ESRD on HD, h/o BPH -Nephrology consulted, appreciate recommendations -HD per nephrology -Monitor intake and output -Renally dose medications -Avoid nephrotoxic medications -Trend BMP Cardiac: h/o HTN, CABG x2, thoracic aortic aneurysm s/p repair -Hydralazine prn -Blood pressure monitoring per protocol Respiratory: Acute hypoxic respiratory failure -Supplemental oxygen as needed -SPO2 monitor per protocol -Pulmonary hygiene Endo: Hypoglycemia, h/o DM -probably due to NPO status -On D10w gtt -Plan to advance diet as tolerated -will D/C D10w gtt if patient tolerates PO intake. -Continue BG check ACHS -avoid hypoglycemia -Continue hypoglycemic protocol Heme: Acute on chronic anemia of chronic disease, GIB -Presented with GI bleed -Multiple episodes of GI bleed noted throughout stay -S/p 5 unit prbc -h/h q 8 hours -Trend CBC -Transfuse hemoglobin less than 7 We will closely monitor the patient and adjust management as needed Plan of care reviewed with the patient and his nurse Patient awaiting response to the appeal. History Interval history: I have seen and examined the patient at the bedside Patient's chart and medications reviewed Patient feels better no new complaints Patient was cleared for discharge Family appealed Pending appeal decision Vital signs reviewed Hospitalist Physical - Constitutional Vitals: Temp Pulse Resp BP Pulse Ox 99.3 F 93 H 16 153/97 100 02/07/22 06:11 02/07/22 06:11 02/07/22 06:11 02/07/22 06:11 02/07/22 06:11 General appearance: Present: no acute distress, well-nourished, obese - EENT Eyes: Present: PERRL, EOM intact - Neck Neck: Present: supple, normal ROM - Respiratory Respiratory effort: normal Respiratory: bilateral: diminished, negative: rales, rhonchi, wheezing - Cardiovascular Rhythm: regular Heart Sounds: Present: S1 & S2 - Extremities Extremities: no ischemia, No edema - Abdominal General gastrointestinal: soft, non-tender, non-distended, normal bowel sounds - Integumentary Integumentary: Present: clear, warm - Psychiatric Psychiatric: appropriate mood/affect, cooperative - Neurologic Neurologic: CNII-XII intact, moves all extremities Results - Labs CBC & Chem 7: 01/30/22 05:57 02/04/22 07:58 Labs: Laboratory Last Values WBC 10.2 K/mm3 (4.5-11.0) 01/20/22 23:06 RBC 3.00 M/mm3 (3.65-5.03) L 01/20/22 23:06 Hgb 8.5 gm/dl (11.8-15.2) L 01/30/22 05:57 Hct 26.6 % (35.5-45.6) L 01/30/22 05:57 MCV 98 fl (84-94) H 01/20/22 23:06 MCH 30 pg (28-32) 01/20/22 23:06 MCHC 31 % (32-34) L 01/20/22 23:06 RDW 18.6 % (13.2-15.2) H 01/20/22 23:06 Plt Count 135 K/mm3 (140-440) L 01/20/22 23:06 Lymph % (Auto) 10.2 % (13.4-35.0) L 01/20/22 23:06 Treasure % (Auto) 9.9 % (0.0-7.3) H 01/20/22 23:06 Eos % (Auto) 7.2 % (0.0-4.3) H 01/20/22 23:06 Baso % (Auto) 0.5 % (0.0-1.8) 01/20/22 23:06 Lymph # (Auto) 1.0 K/mm3 (1.2-5.4) L 01/20/22 23:06 Treasure # (Auto) 1.0 K/mm3 (0.0-0.8) H 01/20/22 23:06 Eos # (Auto) 0.7 K/mm3 (0.0-0.4) H 01/20/22 23:06 Baso # (Auto) 0.0 K/mm3 (0.0-0.1) 01/20/22 23:06 Add Manual Diff Complete 01/11/22 13:02 Total Counted 100 01/11/22 13:02 Seg Neutrophils % 72.2 % (40.0-70.0) H 01/20/22 23:06 Seg Neuts % (Manual) 76.0 % (40.0-70.0) H 01/11/22 13:02 Band Neutrophils % 1.0 % 01/11/22 13:02 Lymphocytes % (Manual) 7.0 % (13.4-35.0) L 01/11/22 13:02 Reactive Lymphs % (Man) 0 % 01/11/22 13:02 Monocytes % (Manual) 5.0 % (0.0-7.3) 01/11/22 13:02 Eosinophils % (Manual) 11.0 % (0.0-4.3) H 01/11/22 13:02 Basophils % (Manual) 0 % (0.0-1.8) 01/11/22 13:02 Metamyelocytes % 0 % 01/11/22 13:02 Myelocytes % 0 % 01/11/22 13:02 Promyelocytes % 0 % 01/11/22 13:02 Blast Cells % 0 % 01/11/22 13:02 Nucleated RBC % Not Reportable 01/11/22 13:02 Seg Neutrophils # 7.3 K/mm3 (1.8-7.7) 01/20/22 23:06 Seg Neutrophils # Man 5.1 K/mm3 (1.8-7.7) 01/11/22 13:02 Band Neutrophils # 0.1 K/mm3 01/11/22 13:02 Lymphocytes # (Manual) 0.5 K/mm3 (1.2-5.4) L 01/11/22 13:02 Abs React Lymphs (Man) 0.0 K/mm3 01/11/22 13:02 Monocytes # (Manual) 0.3 K/mm3 (0.0-0.8) 01/11/22 13:02 Eosinophils # (Manual) 0.7 K/mm3 (0.0-0.4) H 01/11/22 13:02 Basophils # (Manual) 0.0 K/mm3 (0.0-0.1) 01/11/22 13:02 Metamyelocytes # 0.0 K/mm3 01/11/22 13:02 Myelocytes # 0.0 K/mm3 01/11/22 13:02 Promyelocytes # 0.0 K/mm3 01/11/22 13:02 Blast Cells # 0.0 K/mm3 01/11/22 13:02 WBC Morphology Not Reportable 01/11/22 13:02 Hypersegmented Neuts Not Reportable 01/11/22 13:02 Hyposegmented Neuts Not Reportable 01/11/22 13:02 Hypogranular Neuts Not Reportable 01/11/22 13:02 Smudge Cells Not Reportable 01/11/22 13:02 Toxic Granulation Not Reportable 01/11/22 13:02 Toxic Vacuolation Not Reportable 01/11/22 13:02 Dohle Bodies Not Reportable 01/11/22 13:02 Pelger-Huet Anomaly Not Reportable 01/11/22 13:02 Heri Rods Not Reportable 01/11/22 13:02 Platelet Estimate Consistent w auto 01/11/22 13:02 Clumped Platelets Not Reportable 01/11/22 13:02 Plt Clumps, EDTA Not Reportable 01/11/22 13:02 Large Platelets Not Reportable 01/11/22 13:02 Giant Platelets Not Reportable 01/11/22 13:02 Platelet Satelliting Not Reportable 01/11/22 13:02 Plt Morphology Comment Not Reportable 01/11/22 13:02 RBC Morphology Not Reportable 01/11/22 13:02 Dimorphic RBCs Not Reportable 01/11/22 13:02 Polychromasia Not Reportable 01/11/22 13:02 Hypochromasia 2+ 01/11/22 13:02 Poikilocytosis Not Reportable 01/11/22 13:02 Anisocytosis Not Reportable 01/11/22 13:02 Microcytosis Not Reportable 01/11/22 13:02 Macrocytosis 1+ 01/11/22 13:02 Spherocytes Not Reportable 01/11/22 13:02 Pappenheimer Bodies Not Reportable 01/11/22 13:02 Sickle Cells Not Reportable 01/11/22 13:02 Target Cells Not Reportable 01/11/22 13:02 Tear Drop Cells Not Reportable 01/11/22 13:02 Ovalocytes Not Reportable 01/11/22 13:02 Helmet Cells Not Reportable 01/11/22 13:02 Phelps-Shellman Bodies Not Reportable 01/11/22 13:02 [place] Rings Not Reportable 01/11/22 13:02 White [place] Cells Not Reportable 01/11/22 13:02 Bite Cells Not Reportable 01/11/22 13:02 Crenated Cell Not Reportable 01/11/22 13:02 Elliptocytes Not Reportable 01/11/22 13:02 Acanthocytes (Spur) Not Reportable 01/11/22 13:02 Rouleaux Not Reportable 01/11/22 13:02 Hemoglobin C Crystals Not Reportable 01/11/22 13:02 Schistocytes Not Reportable 01/11/22 13:02 Malaria parasites Not Reportable 01/11/22 13:02 Jose Antonio Bodies Not Reportable 01/11/22 13:02 Hem Pathologist Commnt No 01/11/22 13:02 PT 15.8 Sec. (12.2-14.9) H 01/11/22 09:58 INR 1.13 (0.87-1.13) 01/11/22 09:58 Sodium 142 mmol/L (137-145) 02/04/22 07:58 Potassium 4.9 mmol/L (3.6-5.0) 02/04/22 07:58 Chloride 100.6 mmol/L (98-107) 02/04/22 07:58 Carbon Dioxide 29 mmol/L (22-30) 02/04/22 07:58 Anion Gap 17 mmol/L 02/04/22 07:58 BUN 24 mg/dL (9-20) H 02/04/22 07:58 Creatinine 4.0 mg/dL (0.8-1.3) H 02/04/22 07:58 Estimated GFR 19 ml/min 02/04/22 07:58 BUN/Creatinine Ratio 6 % 02/04/22 07:58 Glucose 71 mg/dL (75-100) L 02/04/22 07:58 POC Glucose 69 mg/dL (70-105) L 02/07/22 07:53 Calcium 8.7 mg/dL (8.4-10.2) 02/04/22 07:58 Phosphorus 4.90 mg/dL (2.5-4.5) H 01/30/22 05:57 Magnesium 1.90 mg/dL (1.7-2.3) 01/16/22 04:07 Total Bilirubin 0.30 mg/dL (0.1-1.2) 01/18/22 04:32 AST 15 units/L (5-40) 01/18/22 04:32 ALT 13 units/L (7-56) 01/18/22 04:32 Alkaline Phosphatase 53 units/L (35-129) 01/18/22 04:32 Total Protein 5.3 g/dL (6.3-8.2) L 01/18/22 04:32 Albumin 3.0 g/dL (3.9-5) L 01/18/22 04:32 Albumin/Globulin Ratio 1.3 % 01/18/22 04:32 Lipase 19 units/L (13-60) 01/11/22 09:58 SARS-CoV-2 (PCR) Negative (Negative) 01/19/22 14:45 Hepatitis A IgM Ab Non-reactive (NonReactive) 01/22/22 17:20 Hep Bs Antigen Non-reactive (Negative) 01/22/22 17:20 Hep B Core IgM Ab Non-reactive (NonReactive) 01/22/22 17:20 Hepatitis C Antibody Non-reactive (NonReactive) 01/22/22 17:20 Blood Type O POSITIVE 01/13/22 05:45 Antibody Screen Negative 01/13/22 05:45 Crossmatch See Detail 01/13/22 05:45 Breaux/IV: Voiding Method Condom Catheter Active Medications - Current Medications Current Medications: Generic Name Dose Route Start Last Admin Trade Name Freq PRN Reason Stop Dose Admin Acetaminophen 650 mg 01/11/22 16:00 02/05/22 17:59 Acetaminophen 325 Mg Tab PO 650 mg Q4H PRN Administration Pain MILD(1-3)/Fever >100.5/ESQUIVEL Al Hydrox/Mg Hydrox/Simethicone 15 ml 01/27/22 05:25 02/06/22 09:12 Alum-Mag Hydroxide-Simethicone [id number]/5ml Oral Liqd 30 Ml PO 15 ml Q4H PRN Administration Indigestion Dextrose 50 ml 01/16/22 07:43 01/17/22 18:04 Dextrose 50% In Water (25gm) 50 Ml Syringe IV 10 ml Q30MIN PRN Administration Hypoglycemia Protocol Docusate Sodium 100 mg 01/22/22 11:00 02/06/22 22:17 Docusate Sodium 100 Mg Cap PO 100 mg BID CA Administration Epoetin Sushil-epbx 20,000 unit 01/23/22 12:00 02/06/22 12:33 Epoetin Sushil-Epbx 10,000 Unit/1 Ml Vial SUB-Q 20,000 unit JUANITO PRN Administration hemodialysis Hydralazine HCl 10 mg 01/16/22 07:45 01/20/22 21:57 Hydralazine 20 Mg/1 Ml Inj IV 10 mg Q4HR PRN Administration Hypertension Sodium Chloride 100 mls @ 999 mls/hr 01/19/22 23:03 Nacl 0.9% IV JUANITO PRN Hypotension Insulin Human Lispro 0 unit 01/18/22 16:30 02/06/22 22:18 Insulin Lispro 100 Unit/Ml SUB-Q Not Given ACHS [facility] Protocol Ondansetron HCl 4 mg 01/11/22 15:30 02/05/22 11:33 Ondansetron 4 Mg/2 Ml Inj IV 4 mg Q8H PRN Administration Nausea And Vomiting Ondansetron HCl 8 mg 01/24/22 11:54 01/24/22 13:20 Ondansetron 8 Mg Odt Tab PO 8 mg Q8H PRN Administration Nausea And Vomiting Pantoprazole Sodium 40 mg 01/20/22 10:00 02/06/22 22:17 Pantoprazole 40 Mg Tab PO 40 mg BID CA Administration Sodium Chloride 10 ml 01/11/22 22:00 02/06/22 22:18 Sodium Chloride 0.9% 10 Ml Flush Syringe IV 10 ml BID CA Administration Sodium Chloride 10 ml 01/11/22 16:00 Sodium Chloride 0.9% 10 Ml Flush Syringe IV PRN PRN LINE FLUSH Nutrition/Malnutrition Assess - Dietary Evaluation Nutrition/Malnutrition Findings: Nutrition Notes Start: 01/12/22 15:00 Freq: Status: Active Protocol: Document 01/27/22 17:14 ALLYCOREY (Rec: 01/27/22 17:18 HAILEE [id number]) Nutrition Notes Initial or Follow up Reassessment Current Diagnosis CKD (stage V CKD),Diabetes, Hypertension Other Pertinent Diagnosis Lower GIB Current Diet GI soft Labs/Tests Reviewed Pertinent Medications Colace, Protonix Height 5 ft 8 in Weight 61.3 kg [place] Body Weight (kg) 70.00 BMI 20.5 Subjective/Other Information Pt eating lunch at time of visit. He says he eats when the food is good. No PO intakes documented since last assessment. He is awaiting placement. Burn Absent Trauma Absent #2 Nutrition Diagnosis Altered GI function As Evidenced by Signs and Symptoms pt tolerating PO intake Diagnosis Progress(for reassessment Resolved documentation) #1 Nutrition Diagnosis Underweight Diagnosis Progress(for reassessment Continues documentation) Is patient on ventilator? No Is Patient Ambulatory and/or Out of Bed No [facility] 1670.220 Calculation Used for Recommendations [facility] Additional Notes Pro needs >1.2g/kg: >74g/day Fluid needs 1-1.5L/day Nutrition Intervention Change Diet Order: Continue current diet order Goal #1 PO intakes to meet at least 75 % energy and pro needs Revisit per MD consult or patient Sign Off request:
[2022-02-07] MEDS: DOCUSATE SODIUM 100 MG CAP PO SCH ×2 (10:11→22:39)
[2022-02-07] MEDS: PANTOPRAZOLE 40 MG TAB PO SCH ×2 (10:11→22:39)
--- NOTE | 2022-02-07 14:27 | Progress Note ---
Assessment and Plan 1. ESRD: Patient is on maintenance hemodialysis, MWF schedule. Hemodialysis: 01/13, 01/16, 01/18, 01/19(UF only), 01/20, 01/21(UF only), 01/23, 01/25, 01/27, 01/30, 02/01, 02/03, 02/06. 2. FEN: Volume overload, UF with HD as tolerated. Volume status is better. Limit fluid intake. Hyperkalemia, Kayexalate as needed, on HD. Monitor lytes and volume status. 3. 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 Collaterals presumably chronic, gallstones. S/p EGD and Colonoscopy. Suspect diverticular, recurrent episodes requiring several units of blood. Seen by General Surgery. Epogen with HD. PPI. 4. Acute hypoxic respiratory failure: Supplemental oxygen as needed. Volume control thru HD. Monitor. 5. DM with Hypoglycemia: Monitor. 6. Hypertension: Adjust meds as needed. Volume control. Monitor BP. Subjective: Patient was seen and examined at the bedside. Doing ok. Examination: General appearance: well-developed, appears stated age, not in distress HEENT: no icterus Neck: trachea midline Respiratory: ctab Heart: S1S2, regular, no murmur Abdomen: soft, bowel sounds heard, NT, no palpable mass Integumentary: LE stasis changes noted Neurologic: conversing, able to move extremities Ext: no edema Hemodialysis access: R IJ tunnel catheter Subjective Date of service: 02/07/22 Principal diagnosis: End-stage renal disease, gastrointestinal bleeding Objective - Vital Signs Vital signs: Vital Signs - 12hr 02/07/22 02/07/22 06:11 10:00 Temperature 99.3 F Pulse Rate 93 H Respiratory 16 18 Rate Blood Pressure 153/97 [Right] O2 Sat by Pulse 100 96 Oximetry - Lab 01/30/22 05:57 02/04/22 07:58 Most recent lab results Calcium 8.7 mg/dL (8.4-10.2) 02/04/22 07:58 Phosphorus 4.90 mg/dL (2.5-4.5) H 01/30/22 05:57 Magnesium 1.90 mg/dL (1.7-2.3) 01/16/22 04:07 Medications & Allergies - Medications Allergies/Adverse Reactions: Allergies No Known Allergies Allergy (Verified 01/11/22 09:20) Home Medications: Home Medications Medication Instructions Recorded Confirmed Last Taken Type Tamsulosin [Flomax] 0.4 mg PO QDAY #30 cap 01/07/20 01/16/22 Unknown Rx Bacitracin Zinc Oint [Antibiotic 1 applicatio TP BID #1 tube 03/21/20 01/16/22 Unknown Rx Oint] Benzonatate [Tessalon Perles] 100 mg PO Q8HR PRN #20 capsule 03/21/20 01/16/22 Unknown Rx Acetaminophen [Tylenol] 325 mg PO Q6H PRN 01/16/22 01/16/22 Unknown History Atorvastatin [Lipitor] 80 mg PO QHS 01/16/22 01/16/22 Unknown History Calcium Acetate [Phoslo] 667 mg PO QDAY 01/16/22 01/16/22 Unknown History Ergocalciferol (Vitamin D2) 1,250 mcg PO QDAY 01/16/22 01/16/22 Unknown History [Drisdol] Glycerin/Propylene Glycol 30 ml OP QDAY PRN 01/16/22 01/16/22 Unknown History [Artificial Tears Drops] Insulin Lispro [Admelog] See Protocol SQ ACHS 01/16/22 01/16/22 Unknown History Lactobacillus Acidophilus 0.5 mg PO QDAY 01/16/22 01/16/22 Unknown History [Acidophilus Probiotic] Lactulose [Cephulac] 20 gm PO BID PRN 01/16/22 01/16/22 Unknown History Mag Hydrox/Aluminum Hyd/Simeth 10 ml PO QDAY 01/16/22 01/16/22 Unknown History [Mylanta Maximum Strength Pkt] Melatonin [Melatonin 5MG CAP] 5 mg PO QHS 01/16/22 01/16/22 Unknown History Torsemide [Demadex] 100 mg PO QDAY 01/16/22 01/16/22 Unknown History Vit B Comp No.3/Folic/C/Biotin 1 tab PO QDAY 01/16/22 01/16/22 Unknown History [Prisca-Theodore Rx Tablet] megestroL [Megestrol] 40 mg PO QDAY 01/16/22 01/16/22 Unknown History polyethylene glycoL 3350 [Miralax 17 gm PO BID PRN 01/16/22 01/16/22 Unknown History 3350] Amiodarone [Cordarone 200 MG TAB] 200 mg PO QDAY #30 tab 01/19/22 Unknown Rx Pantoprazole [Protonix TAB] 40 mg PO BID #60 tablet 01/19/22 Unknown Rx amLODIPine 10 mg PO QDAY #30 tab 01/19/22 Unknown Rx carvediloL [Coreg] 6.25 mg PO BID #60 tab 01/19/22 Unknown Rx Active Medications: Generic Name Dose Route Start Last Admin Trade Name Freq PRN Reason Stop Dose Admin Acetaminophen 650 mg 01/11/22 16:00 02/05/22 17:59 Acetaminophen 325 Mg Tab PO 650 mg Q4H PRN Administration Pain MILD(1-3)/Fever >100.5/ESQUIVEL Al Hydrox/Mg Hydrox/Simethicone 15 ml 01/27/22 05:25 02/06/22 09:12 Alum-Mag Hydroxide-Simethicone [id number]/5ml Oral Liqd 30 Ml PO 15 ml Q4H PRN Administration Indigestion Dextrose 50 ml 01/16/22 07:43 01/17/22 18:04 Dextrose 50% In Water (25gm) 50 Ml Syringe IV 10 ml Q30MIN PRN Administration Hypoglycemia Protocol Docusate Sodium 100 mg 01/22/22 11:00 02/07/22 10:11 Docusate Sodium 100 Mg Cap PO 100 mg BID CA Administration Epoetin Sushil-epbx 20,000 unit 01/23/22 12:00 02/06/22 12:33 Epoetin Sushil-Epbx 10,000 Unit/1 Ml Vial SUB-Q 20,000 unit JUANITO PRN Administration hemodialysis Hydralazine HCl 10 mg 01/16/22 07:45 01/20/22 21:57 Hydralazine 20 Mg/1 Ml Inj IV 10 mg Q4HR PRN Administration Hypertension Sodium Chloride 100 mls @ 999 mls/hr 01/19/22 23:03 Nacl 0.9% IV JUANITO PRN Hypotension Insulin Human Lispro 0 unit 01/18/22 16:30 02/07/22 12:30 Insulin Lispro 100 Unit/Ml SUB-Q Not Given ACHS [facility] Protocol Ondansetron HCl 4 mg 01/11/22 15:30 02/05/22 11:33 Ondansetron 4 Mg/2 Ml Inj IV 4 mg Q8H PRN Administration Nausea And Vomiting Ondansetron HCl 8 mg 01/24/22 11:54 01/24/22 13:20 Ondansetron 8 Mg Odt Tab PO 8 mg Q8H PRN Administration Nausea And Vomiting Pantoprazole Sodium 40 mg 01/20/22 10:00 02/07/22 10:11 Pantoprazole 40 Mg Tab PO 40 mg BID CA Administration Sodium Chloride 10 ml 01/11/22 22:00 02/07/22 10:11 Sodium Chloride 0.9% 10 Ml Flush Syringe IV 10 ml BID CA Administration Sodium Chloride 10 ml 01/11/22 16:00 Sodium Chloride 0.9% 10 Ml Flush Syringe IV PRN PRN LINE FLUSH
--- NOTE | 2022-02-08 11:13 | Progress Note ---
Assessment and Plan 1. ESRD: Patient is on maintenance hemodialysis, MWF schedule. Hemodialysis: 01/13, 01/16, 01/18, 01/19(UF only), 01/20, 01/21(UF only), 01/23, 01/25, 01/27, 01/30, 02/01, 02/03, 02/06, 02/08. 2. FEN: Volume overload, UF with HD as tolerated. Volume status is better. Limit fluid intake. Hyperkalemia, Kayexalate as needed, on HD. Monitor lytes and volume status. 3. 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 Collaterals presumably chronic, gallstones. S/p EGD and Colonoscopy. Suspect diverticular, recurrent episodes requiring several units of blood. Seen by General Surgery. Epogen with HD. PPI. 4. Acute hypoxic respiratory failure: Supplemental oxygen as needed. Volume control thru HD. Monitor. 5. DM with Hypoglycemia: Monitor. 6. Hypertension: Adjust meds as needed. Volume control. Monitor BP. Placement pending. Subjective: Patient was seen and examined at the bedside. Doing ok. Examination: General appearance: well-developed, appears stated age, not in distress HEENT: no icterus Neck: trachea midline Respiratory: ctab Heart: S1S2, regular, no murmur Abdomen: soft, bowel sounds heard, NT, no palpable mass Integumentary: LE stasis changes noted Neurologic: conversing, able to move extremities Ext: no edema Hemodialysis access: R IJ tunnel catheter Subjective Date of service: 02/08/22 Principal diagnosis: End-stage renal disease, gastrointestinal bleeding Objective - Vital Signs Vital signs: Vital Signs - 12hr 02/08/22 04:37 Temperature 98.8 F Pulse Rate 89 Respiratory 18 Rate Blood Pressure 151/93 O2 Sat by Pulse 98 Oximetry - Lab 01/30/22 05:57 02/04/22 07:58 Most recent lab results Calcium 8.7 mg/dL (8.4-10.2) 02/04/22 07:58 Phosphorus 4.90 mg/dL (2.5-4.5) H 01/30/22 05:57 Magnesium 1.90 mg/dL (1.7-2.3) 01/16/22 04:07 Medications & Allergies - Medications Allergies/Adverse Reactions: Allergies No Known Allergies Allergy (Verified 01/11/22 09:20) Home Medications: Home Medications Medication Instructions Recorded Confirmed Last Taken Type Tamsulosin [Flomax] 0.4 mg PO QDAY #30 cap 01/07/20 01/16/22 Unknown Rx Bacitracin Zinc Oint [Antibiotic 1 applicatio TP BID #1 tube 03/21/20 01/16/22 Unknown Rx Oint] Benzonatate [Tessalon Perles] 100 mg PO Q8HR PRN #20 capsule 03/21/20 01/16/22 Unknown Rx Acetaminophen [Tylenol] 325 mg PO Q6H PRN 01/16/22 01/16/22 Unknown History Atorvastatin [Lipitor] 80 mg PO QHS 01/16/22 01/16/22 Unknown History Calcium Acetate [Phoslo] 667 mg PO QDAY 01/16/22 01/16/22 Unknown History Ergocalciferol (Vitamin D2) 1,250 mcg PO QDAY 01/16/22 01/16/22 Unknown History [Drisdol] Glycerin/Propylene Glycol 30 ml OP QDAY PRN 01/16/22 01/16/22 Unknown History [Artificial Tears Drops] Insulin Lispro [Admelog] See Protocol SQ ACHS 01/16/22 01/16/22 Unknown History Lactobacillus Acidophilus 0.5 mg PO QDAY 01/16/22 01/16/22 Unknown History [Acidophilus Probiotic] Lactulose [Cephulac] 20 gm PO BID PRN 01/16/22 01/16/22 Unknown History Mag Hydrox/Aluminum Hyd/Simeth 10 ml PO QDAY 01/16/22 01/16/22 Unknown History [Mylanta Maximum Strength Pkt] Melatonin [Melatonin 5MG CAP] 5 mg PO QHS 01/16/22 01/16/22 Unknown History Torsemide [Demadex] 100 mg PO QDAY 01/16/22 01/16/22 Unknown History Vit B Comp No.3/Folic/C/Biotin 1 tab PO QDAY 01/16/22 01/16/22 Unknown History [Prisca-Theodore Rx Tablet] megestroL [Megestrol] 40 mg PO QDAY 01/16/22 01/16/22 Unknown History polyethylene glycoL 3350 [Miralax 17 gm PO BID PRN 01/16/22 01/16/22 Unknown History 3350] Amiodarone [Cordarone 200 MG TAB] 200 mg PO QDAY #30 tab 01/19/22 Unknown Rx Pantoprazole [Protonix TAB] 40 mg PO BID #60 tablet 01/19/22 Unknown Rx amLODIPine 10 mg PO QDAY #30 tab 01/19/22 Unknown Rx carvediloL [Coreg] 6.25 mg PO BID #60 tab 01/19/22 Unknown Rx Active Medications: Generic Name Dose Route Start Last Admin Trade Name Freq PRN Reason Stop Dose Admin Acetaminophen 650 mg 01/11/22 16:00 02/05/22 17:59 Acetaminophen 325 Mg Tab PO 650 mg Q4H PRN Administration Pain MILD(1-3)/Fever >100.5/ESQUIVEL Al Hydrox/Mg Hydrox/Simethicone 15 ml 01/27/22 05:25 02/06/22 09:12 Alum-Mag Hydroxide-Simethicone [id number]/5ml Oral Liqd 30 Ml PO 15 ml Q4H PRN Administration Indigestion Dextrose 50 ml 01/16/22 07:43 01/17/22 18:04 Dextrose 50% In Water (25gm) 50 Ml Syringe IV 10 ml Q30MIN PRN Administration Hypoglycemia Protocol Docusate Sodium 100 mg 01/22/22 11:00 02/07/22 22:39 Docusate Sodium 100 Mg Cap PO 100 mg BID CA Administration Epoetin Sushil-epbx 20,000 unit 01/23/22 12:00 02/06/22 12:33 Epoetin Sushil-Epbx 10,000 Unit/1 Ml Vial SUB-Q 20,000 unit JUANITO PRN Administration hemodialysis Hydralazine HCl 10 mg 01/16/22 07:45 01/20/22 21:57 Hydralazine 20 Mg/1 Ml Inj IV 10 mg Q4HR PRN Administration Hypertension Sodium Chloride 100 mls @ 999 mls/hr 01/19/22 23:03 Nacl 0.9% IV JUANITO PRN Hypotension Insulin Human Lispro 0 unit 01/18/22 16:30 02/07/22 22:41 Insulin Lispro 100 Unit/Ml SUB-Q Not Given ACHS CA Protocol Ondansetron HCl 4 mg 01/11/22 15:30 02/05/22 11:33 Ondansetron 4 Mg/2 Ml Inj IV 4 mg Q8H PRN Administration Nausea And Vomiting Ondansetron HCl 8 mg 01/24/22 11:54 01/24/22 13:20 Ondansetron 8 Mg Odt Tab PO 8 mg Q8H PRN Administration Nausea And Vomiting Pantoprazole Sodium 40 mg 01/20/22 10:00 02/07/22 22:39 Pantoprazole 40 Mg Tab PO 40 mg BID CA Administration Sodium Chloride 10 ml 01/11/22 22:00 02/07/22 22:41 Sodium Chloride 0.9% 10 Ml Flush Syringe IV 10 ml BID CA Administration Sodium Chloride 10 ml 01/11/22 16:00 Sodium Chloride 0.9% 10 Ml Flush Syringe IV PRN PRN LINE FLUSH
[2022-02-08] MEDS: EPOETIN ALFA-EPBX 10,000 UNIT/1 ML VIAL SUB-Q PRN (11:47)
--- NOTE | 2022-02-08 20:17 | Progress Note ---
Assessment and Plan Assessment and plan: This is a 62-year-old male with ESRD on HD, HTN, CABG x2, aortic dissection s/p thoracic aortic stent, BPH and DM admitted with GI bleeding ICU course to date: 01/15: Patient was transferred to ICU for closer monitoring yesterday afternoon after second episode of GI bleeding was noted and he had a repeat CTA abdomen/pelvis. Patient's hemoglobin dropped to 5 yesterday and was given 2 units PRBC. GI recommends obtaining another CTA if recurrence of GI bleeding noted. 01/16: Patient will get HD today and possibly 25 DC tomorrow. Added hydralazine as needed for hypertension. Started D10 drip due to persistent hypoglycemia. 01/17: Patient remains stable, no s/s of any active bleeding overnight. H&H is stable. Plan for repeat Colonoscopy today by GI. Continue D10w for hypoglycemia and trend CBC 01/18: s/p repeat colonoscopy, diverticuli noted throughout the colon but no evidence of any active bleeding. No bloody stools reported for over 48hrs, H&H and vital signs are stable. GI and general surgery recommendations noted. If bleeding reoccur patient's only option is a total colectomy since patient is not a candidate for any angiography intervention due to history of aortic dissection. Continue PPI, and continue to trend CBC. Advance diet as tolerated, will D/C D10w gtt if patient tolerates PO intake. Continue BG check ACHS, avoid hypoglycemia. Plan for HD today per Nephro. D/W CCM patient is stable for transfer to Telemetry. 01/19: Patient seen and examined clinically stable, discussed with surgery and also with all the specialties involved in the case.reviewed GI and Surgery notes. Patient not a candidate for any IR procedure. Surgery only option and a waiting next bleed if it happens. Even with bleeding in the past, hemodynamically patient has been stable. Also discussed with the sister and explained the clinical condition of findings she verbalized understanding plan at this time is for discharge of patient back to the facility 01/20: Late entry, awaiting discharge to facility. 01/21: Patient seen and examined, resting comfortable. No new compliant. No new Bleeding reported. H/H stable. 01/22: No new bleeding, awaiting placement, continue supportive care. 01/23: Continue supportive care. No further bleeding noted. Anticipate discharge in a.m. if placement is obtained In summary of visit the patient came in with rectal bleed requiring transfusion. GI evaluated the patient also diverticulosis. Surgery evaluated the patient no planned intervention at this time but if patient rebleeds will need a total colectomy. In the meantime patient is currently waiting for placement 01/24: Continue supportive care. Complaints of abdominal pain and some nausea this morning. Change Zofran to ODT. Continue pantoprazole. Discussed with case management regarding placement today. Case management will be following up with [facility] (where pt presented from) as to why patient cannot return back to facility. 01/25: No acute overnight issues. Awaiting placement. Discussed with CM. 01/26: No overnight events. Awaiting placement. Discussed with CM on rounds this AM. plan [facility]dialysis center vs home w/hhc. 01/27: No overnight events. Patient undergoing dialysis today. Difficulties placing this patient, original facility is not excepting this patient. Working with case management for resolution. 01/28: No overnight events. Awaiting placement and OP dialysis arrangements. 01/29: No overnight events. Awaiting placement and OP dialysis arrangements. 01/30: Elevated K= 6.1, ordered Kionex, insulin, d50, albuterol. Repeat BMP o rdered for 1500. Dialysis planned today. Placement and OP dialysis arrangements pending. -- Patient did not get accepted for SNF/[facility]. had peer to peer but denied. family planned for appeal. discharge pending on placement. clinically stable for dc Assessment and Plan GI: LGIB, moderate protein calorie malnutrition/ Diverticulosis -GI, IR, surgery consulted, appreciate recommendations -Abdomen pelvis CT showed previous placement of thoracic aortic stent graft, 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 Collaterals presumably chronic, gallstones -S/p EGD and 01/12 which showed normal esophagus, mild erythematous mucosa in the antrum of of the body, biopsies obtained, normal duodenum, biopsies obtained and no source of GI bleeding found -S/p colonoscopy on 01/12 due to feeling poor quality however likely diverticular bleed -01/13 CTA abdomen/pelvis showed mild diverticular disease throughout the colon with endoluminal opacification of nearly all of the colon suggesting oral contrast however patient did have a history of oral contrast administration in addition To saturations would include carious excretion of contrast from the gallbladder however this appears out of proportion therefore hemorrhage should be considered, no clear source is identified, redemonstrated vascular disease without change -01/15 CTA abdomen/pelvis previous placement of thoracic aortic stent graft with 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 See report for details -General surgery recommendations noted. -If bleeding reoccur patient's only option is a total colectomy since patient is not a candidate for any angiography intervention due to history of aortic dissection. -Continue PPI, and continue to trend CBC -Advance diet as tolerated : ESRD on HD, h/o BPH -Nephrology consulted, appreciate recommendations -HD per nephrology -Monitor intake and output -Renally dose medications -Avoid nephrotoxic medications -Trend BMP Cardiac: h/o HTN, CABG x2, thoracic aortic aneurysm s/p repair -Hydralazine prn -Blood pressure monitoring per protocol Respiratory: Acute hypoxic respiratory failure -Supplemental oxygen as needed -SPO2 monitor per protocol -Pulmonary hygiene Endo: Hypoglycemia, h/o DM -probably due to NPO status -On D10w gtt -Plan to advance diet as tolerated -will D/C D10w gtt if patient tolerates PO intake. -Continue BG check ACHS -avoid hypoglycemia -Continue hypoglycemic protocol Heme: Acute on chronic anemia of chronic disease, GIB -Presented with GI bleed -Multiple episodes of GI bleed noted throughout stay -S/p 5 unit prbc -h/h q 8 hours -Trend CBC -Transfuse hemoglobin less than 7 We will closely monitor the patient and adjust management as needed Plan of care reviewed with the patient and his nurse SNF placement family pain Patient awaiting response to the appeal. History Interval history: I have seen and examined the patient at the bedside No new overnight events reported by the nursing staff Patient has no new complaints Vital signs noted Severely cachectic and emaciated Hospitalist Physical - Constitutional Vitals: Temp Pulse Resp BP Pulse Ox 98.6 F 95 H 19 147/87 96 02/08/22 19:22 02/08/22 19:55 02/08/22 19:22 02/08/22 19:22 02/08/22 19:55 General appearance: Present: no acute distress, cachectic, disheveled - EENT Eyes: Present: PERRL, EOM intact - Neck Neck: Present: supple, normal ROM - Respiratory Respiratory effort: normal Respiratory: bilateral: diminished, negative: rales, rhonchi, wheezing - Cardiovascular Rhythm: regular Heart Sounds: Present: S1 & S2 - Extremities Extremities: no ischemia, No edema - Abdominal General gastrointestinal: soft, non-tender, non-distended, normal bowel sounds - Integumentary Integumentary: Present: clear, warm - Psychiatric Psychiatric: appropriate mood/affect, cooperative - Neurologic Neurologic: moves all extremities Results - Labs CBC & Chem 7: 01/30/22 05:57 02/04/22 07:58 Labs: Laboratory Last Values WBC 10.2 K/mm3 (4.5-11.0) 01/20/22 23:06 RBC 3.00 M/mm3 (3.65-5.03) L 01/20/22 23:06 Hgb 8.5 gm/dl (11.8-15.2) L 01/30/22 05:57 Hct 26.6 % (35.5-45.6) L 01/30/22 05:57 MCV 98 fl (84-94) H 01/20/22 23:06 MCH 30 pg (28-32) 01/20/22 23:06 MCHC 31 % (32-34) L 01/20/22 23:06 RDW 18.6 % (13.2-15.2) H 01/20/22 23:06 Plt Count 135 K/mm3 (140-440) L 01/20/22 23:06 Lymph % (Auto) 10.2 % (13.4-35.0) L 01/20/22 23:06 [place] % (Auto) 9.9 % (0.0-7.3) H 01/20/22 23:06 Eos % (Auto) 7.2 % (0.0-4.3) H 01/20/22 23:06 Baso % (Auto) 0.5 % (0.0-1.8) 01/20/22 23:06 Lymph # (Auto) 1.0 K/mm3 (1.2-5.4) L 01/20/22 23:06 [place] # (Auto) 1.0 K/mm3 (0.0-0.8) H 01/20/22 23:06 Eos # (Auto) 0.7 K/mm3 (0.0-0.4) H 01/20/22 23:06 Baso # (Auto) 0.0 K/mm3 (0.0-0.1) 01/20/22 23:06 Add Manual Diff Complete 01/11/22 13:02 Total Counted 100 01/11/22 13:02 Seg Neutrophils % 72.2 % (40.0-70.0) H 01/20/22 23:06 Seg Neuts % (Manual) 76.0 % (40.0-70.0) H 01/11/22 13:02 Band Neutrophils % 1.0 % 01/11/22 13:02 Lymphocytes % (Manual) 7.0 % (13.4-35.0) L 01/11/22 13:02 Reactive Lymphs % (Man) 0 % 01/11/22 13:02 Monocytes % (Manual) 5.0 % (0.0-7.3) 01/11/22 13:02 Eosinophils % (Manual) 11.0 % (0.0-4.3) H 01/11/22 13:02 Basophils % (Manual) 0 % (0.0-1.8) 01/11/22 13:02 Metamyelocytes % 0 % 01/11/22 13:02 Myelocytes % 0 % 01/11/22 13:02 Promyelocytes % 0 % 01/11/22 13:02 Blast Cells % 0 % 01/11/22 13:02 Nucleated RBC % Not Reportable 01/11/22 13:02 Seg Neutrophils # 7.3 K/mm3 (1.8-7.7) 01/20/22 23:06 Seg Neutrophils # Man 5.1 K/mm3 (1.8-7.7) 01/11/22 13:02 Band Neutrophils # 0.1 K/mm3 01/11/22 13:02 Lymphocytes # (Manual) 0.5 K/mm3 (1.2-5.4) L 01/11/22 13:02 Abs React Lymphs (Man) 0.0 K/mm3 01/11/22 13:02 Monocytes # (Manual) 0.3 K/mm3 (0.0-0.8) 01/11/22 13:02 Eosinophils # (Manual) 0.7 K/mm3 (0.0-0.4) H 01/11/22 13:02 Basophils # (Manual) 0.0 K/mm3 (0.0-0.1) 01/11/22 13:02 Metamyelocytes # 0.0 K/mm3 01/11/22 13:02 Myelocytes # 0.0 K/mm3 01/11/22 13:02 Promyelocytes # 0.0 K/mm3 01/11/22 13:02 Blast Cells # 0.0 K/mm3 01/11/22 13:02 WBC Morphology Not Reportable 01/11/22 13:02 Hypersegmented Neuts Not Reportable 01/11/22 13:02 Hyposegmented Neuts Not Reportable 01/11/22 13:02 Hypogranular Neuts Not Reportable 01/11/22 13:02 Smudge Cells Not Reportable 01/11/22 13:02 Toxic Granulation Not Reportable 01/11/22 13:02 Toxic Vacuolation Not Reportable 01/11/22 13:02 Dohle Bodies Not Reportable 01/11/22 13:02 Pelger-Huet Anomaly Not Reportable 01/11/22 13:02 Heri Rods Not Reportable 01/11/22 13:02 Platelet Estimate Consistent w auto 01/11/22 13:02 Clumped Platelets Not Reportable 01/11/22 13:02 Plt Clumps, EDTA Not Reportable 01/11/22 13:02 Large Platelets Not Reportable 01/11/22 13:02 Giant Platelets Not Reportable 01/11/22 13:02 Platelet Satelliting Not Reportable 01/11/22 13:02 Plt Morphology Comment Not Reportable 01/11/22 13:02 RBC Morphology Not Reportable 01/11/22 13:02 Dimorphic RBCs Not Reportable 01/11/22 13:02 Polychromasia Not Reportable 01/11/22 13:02 Hypochromasia 2+ 01/11/22 13:02 Poikilocytosis Not Reportable 01/11/22 13:02 Anisocytosis Not Reportable 01/11/22 13:02 Microcytosis Not Reportable 01/11/22 13:02 Macrocytosis 1+ 01/11/22 13:02 Spherocytes Not Reportable 01/11/22 13:02 Pappenheimer Bodies Not Reportable 01/11/22 13:02 Sickle Cells Not Reportable 01/11/22 13:02 Target Cells Not Reportable 01/11/22 13:02 Tear Drop Cells Not Reportable 01/11/22 13:02 Ovalocytes Not Reportable 01/11/22 13:02 Helmet Cells Not Reportable 01/11/22 13:02 Phelps-Greybull Bodies Not Reportable 01/11/22 13:02 [place] Rings Not Reportable 01/11/22 13:02 [place] Cells Not Reportable 01/11/22 13:02 Bite Cells Not Reportable 01/11/22 13:02 Crenated Cell Not Reportable 01/11/22 13:02 Elliptocytes Not Reportable 01/11/22 13:02 Acanthocytes (Spur) Not Reportable 01/11/22 13:02 Rouleaux Not Reportable 01/11/22 13:02 Hemoglobin C Crystals Not Reportable 01/11/22 13:02 Schistocytes Not Reportable 01/11/22 13:02 Malaria parasites Not Reportable 01/11/22 13:02 Jose Antonio Bodies Not Reportable 01/11/22 13:02 Hem Pathologist Commnt No 01/11/22 13:02 PT 15.8 Sec. (12.2-14.9) H 01/11/22 09:58 INR 1.13 (0.87-1.13) 01/11/22 09:58 Sodium 142 mmol/L (137-145) 02/04/22 07:58 Potassium 4.9 mmol/L (3.6-5.0) 02/04/22 07:58 Chloride 100.6 mmol/L (98-107) 02/04/22 07:58 Carbon Dioxide 29 mmol/L (22-30) 02/04/22 07:58 Anion Gap 17 mmol/L 02/04/22 07:58 BUN 24 mg/dL (9-20) H 02/04/22 07:58 Creatinine 4.0 mg/dL (0.8-1.3) H 02/04/22 07:58 Estimated GFR 19 ml/min 02/04/22 07:58 BUN/Creatinine Ratio 6 % 02/04/22 07:58 Glucose 71 mg/dL (75-100) L 02/04/22 07:58 POC Glucose 138 mg/dL (70-105) H 02/08/22 15:55 Calcium 8.7 mg/dL (8.4-10.2) 02/04/22 07:58 Phosphorus 4.90 mg/dL (2.5-4.5) H 01/30/22 05:57 Magnesium 1.90 mg/dL (1.7-2.3) 01/16/22 04:07 Total Bilirubin 0.30 mg/dL (0.1-1.2) 01/18/22 04:32 AST 15 units/L (5-40) 01/18/22 04:32 ALT 13 units/L (7-56) 01/18/22 04:32 Alkaline Phosphatase 53 units/L (35-129) 01/18/22 04:32 Total Protein 5.3 g/dL (6.3-8.2) L 01/18/22 04:32 Albumin 3.0 g/dL (3.9-5) L 01/18/22 04:32 Albumin/Globulin Ratio 1.3 % 01/18/22 04:32 Lipase 19 units/L (13-60) 01/11/22 09:58 SARS-CoV-2 (PCR) Negative (Negative) 01/19/22 14:45 Hepatitis A IgM Ab Non-reactive (NonReactive) 01/22/22 17:20 Hep Bs Antigen Non-reactive (Negative) 01/22/22 17:20 Hep B Core IgM Ab Non-reactive (NonReactive) 01/22/22 17:20 Hepatitis C Antibody Non-reactive (NonReactive) 01/22/22 17:20 Blood Type O POSITIVE 01/13/22 05:45 Antibody Screen Negative 01/13/22 05:45 Crossmatch See Detail 01/13/22 05:45 Breaux/IV: Voiding Method Toilet Active Medications - Current Medications Current Medications: Generic Name Dose Route Start Last Admin Trade Name Freq PRN Reason Stop Dose Admin Acetaminophen 650 mg 01/11/22 16:00 02/05/22 17:59 Acetaminophen 325 Mg Tab PO 650 mg Q4H PRN Administration Pain MILD(1-3)/Fever >100.5/ESQUIVEL Al Hydrox/Mg Hydrox/Simethicone 15 ml 01/27/22 05:25 02/06/22 09:12 Alum-Mag Hydroxide-Simethicone [id number]/5ml Oral Liqd 30 Ml PO 15 ml Q4H PRN Administration Indigestion Dextrose 50 ml 01/16/22 07:43 01/17/22 18:04 Dextrose 50% In Water (25gm) 50 Ml Syringe IV 10 ml Q30MIN PRN Administration Hypoglycemia Protocol Docusate Sodium 100 mg 01/22/22 11:00 02/07/22 22:39 Docusate Sodium 100 Mg Cap PO 100 mg BID CA Administration Epoetin Sushil-epbx 20,000 unit 01/23/22 12:00 02/08/22 11:47 Epoetin Sushil-Epbx 10,000 Unit/1 Ml Vial SUB-Q 20,000 unit JUANITO PRN Administration hemodialysis Hydralazine HCl 10 mg 01/16/22 07:45 01/20/22 21:57 Hydralazine 20 Mg/1 Ml Inj IV 10 mg Q4HR PRN Administration Hypertension Sodium Chloride 100 mls @ 999 mls/hr 01/19/22 23:03 Nacl 0.9% IV JUANITO PRN Hypotension Insulin Human Lispro 0 unit 01/18/22 16:30 02/07/22 22:41 Insulin Lispro 100 Unit/Ml SUB-Q Not Given ACHS [facility] Protocol Ondansetron HCl 4 mg 01/11/22 15:30 02/05/22 11:33 Ondansetron 4 Mg/2 Ml Inj IV 4 mg Q8H PRN Administration Nausea And Vomiting Ondansetron HCl 8 mg 01/24/22 11:54 01/24/22 13:20 Ondansetron 8 Mg Odt Tab PO 8 mg Q8H PRN Administration Nausea And Vomiting Pantoprazole Sodium 40 mg 01/20/22 10:00 02/07/22 22:39 Pantoprazole 40 Mg Tab PO 40 mg BID CA Administration Sodium Chloride 10 ml 01/11/22 22:00 02/07/22 22:41 Sodium Chloride 0.9% 10 Ml Flush Syringe IV 10 ml BID CA Administration Sodium Chloride 10 ml 01/11/22 16:00 Sodium Chloride 0.9% 10 Ml Flush Syringe IV PRN PRN LINE FLUSH Nutrition/Malnutrition Assess - Dietary Evaluation Nutrition/Malnutrition Findings: Nutrition Notes Start: 01/12/22 15:00 Freq: Status: Active Protocol: Document 01/27/22 17:14 HAILEE (Rec: 01/27/22 17:18 HAILEE [id number]) Nutrition Notes Initial or Follow up Reassessment Current Diagnosis CKD (stage V CKD),Diabetes, Hypertension Other Pertinent Diagnosis Lower GIB Current Diet GI soft Labs/Tests Reviewed Pertinent Medications Colace, Protonix Height 5 ft 8 in Weight 61.3 kg [place] Body Weight (kg) 70.00 BMI 20.5 Subjective/Other Information Pt eating lunch at time of visit. He says he eats when the food is good. No PO intakes documented since last assessment. He is awaiting placement. Burn Absent Trauma Absent #2 Nutrition Diagnosis Altered GI function As Evidenced by Signs and Symptoms pt tolerating PO intake Diagnosis Progress(for reassessment Resolved documentation) #1 Nutrition Diagnosis Underweight Diagnosis Progress(for reassessment Continues documentation) Is patient on ventilator? No Is Patient Ambulatory and/or Out of Bed No REE-([place]-St[place] Jeor-confined to bed) 1670.220 Calculation Used for Recommendations [place] Je[place] Additional Notes Pro needs >1.2g/kg: >74g/day Fluid needs 1-1.5L/day Nutrition Intervention Change Diet Order: Continue current diet order Goal #1 PO intakes to meet at least 75 % energy and pro needs Revisit per MD consult or patient Sign Off request:
[2022-02-08] MEDS: INSULIN LISPRO 100 UNIT/ML SUB-Q SCH ×2 (20:26→21:02)
[2022-02-08] MEDS: DOCUSATE SODIUM 100 MG CAP PO SCH ×2 (20:26→21:01)
[2022-02-08] MEDS: PANTOPRAZOLE 40 MG TAB PO SCH ×2 (20:27→21:01)
[2022-02-08] MEDS: ALUM-MAG HYDROXIDE-SIMETHICONE 200-200-20MG/5ML ORAL LIQD 30 ML PO PRN (20:58)
[2022-02-08] MEDS: ONDANSETRON 4 MG/2 ML INJ IV PRN (21:00)
--- NOTE | 2022-02-09 10:16 | Progress Note ---
Assessment and Plan 1. ESRD: Patient is on maintenance hemodialysis, MWF schedule. Hemodialysis: 01/13, 01/16, 01/18, 01/19(UF only), 01/20, 01/21(UF only), 01/23, 01/25, 01/27, 01/30, 02/01, 02/03, 02/06, 02/08. 2. FEN: Volume overload, UF with HD as tolerated. Volume status is better. Limit fluid intake. Hyperkalemia, Kayexalate as needed, on HD. Monitor lytes and volume status. 3. 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 Collaterals presumably chronic, gallstones. S/p EGD and Colonoscopy. Suspect diverticular, recurrent episodes requiring several units of blood. Seen by General Surgery. Epogen with HD. PPI. 4. Acute hypoxic respiratory failure: Supplemental oxygen as needed. Volume control thru HD. Monitor. 5. DM with Hypoglycemia: Monitor. 6. Hypertension: Adjust meds as needed. Volume control. Monitor BP. Placement pending. Subjective: Patient was seen and examined at the bedside. Doing ok. Examination: General appearance: well-developed, appears stated age, not in distress HEENT: no icterus Neck: trachea midline Respiratory: ctab Heart: S1S2, regular, no murmur Abdomen: soft, bowel sounds heard, NT, no palpable mass Integumentary: LE stasis changes noted Neurologic: conversing, able to move extremities Ext: no edema Hemodialysis access: R IJ tunnel catheter Subjective Date of service: 02/09/22 Principal diagnosis: End-stage renal disease, gastrointestinal bleeding Objective - Vital Signs Vital signs: Vital Signs - 12hr 02/08/22 02/09/22 02/09/22 23:12 03:37 07:37 Temperature 98.2 F 98.1 F 97.8 F Pulse Rate 88 88 94 H Respiratory 18 16 Rate Blood Pressure 169/87 148/95 153/90 O2 Sat by Pulse 98 100 99 Oximetry - Lab 01/30/22 05:57 02/04/22 07:58 Most recent lab results Calcium 8.7 mg/dL (8.4-10.2) 02/04/22 07:58 Phosphorus 4.90 mg/dL (2.5-4.5) H 01/30/22 05:57 Magnesium 1.90 mg/dL (1.7-2.3) 01/16/22 04:07 Medications & Allergies - Medications Allergies/Adverse Reactions: Allergies No Known Allergies Allergy (Verified 01/11/22 09:20) Home Medications: Home Medications Medication Instructions Recorded Confirmed Last Taken Type Tamsulosin [Flomax] 0.4 mg PO QDAY #30 cap 01/07/20 01/16/22 Unknown Rx Bacitracin Zinc Oint [Antibiotic 1 applicatio TP BID #1 tube 03/21/20 01/16/22 Unknown Rx Oint] Benzonatate [Tessalon Perles] 100 mg PO Q8HR PRN #20 capsule 03/21/20 01/16/22 Unknown Rx Acetaminophen [Tylenol] 325 mg PO Q6H PRN 01/16/22 01/16/22 Unknown History Atorvastatin [Lipitor] 80 mg PO QHS 01/16/22 01/16/22 Unknown History Calcium Acetate [Phoslo] 667 mg PO QDAY 01/16/22 01/16/22 Unknown History Ergocalciferol (Vitamin D2) 1,250 mcg PO QDAY 01/16/22 01/16/22 Unknown History [Drisdol] Glycerin/Propylene Glycol 30 ml OP QDAY PRN 01/16/22 01/16/22 Unknown History [Artificial Tears Drops] Insulin Lispro [Admelog] See Protocol SQ ACHS 01/16/22 01/16/22 Unknown History Lactobacillus Acidophilus 0.5 mg PO QDAY 01/16/22 01/16/22 Unknown History [Acidophilus Probiotic] Lactulose [Cephulac] 20 gm PO BID PRN 01/16/22 01/16/22 Unknown History Mag Hydrox/Aluminum Hyd/Simeth 10 ml PO QDAY 01/16/22 01/16/22 Unknown History [Mylanta Maximum Strength Pkt] Melatonin [Melatonin 5MG CAP] 5 mg PO QHS 01/16/22 01/16/22 Unknown History Torsemide [Demadex] 100 mg PO QDAY 01/16/22 01/16/22 Unknown History Vit B Comp No.3/Folic/C/Biotin 1 tab PO QDAY 01/16/22 01/16/22 Unknown History [Prisca-Theodore Rx Tablet] megestroL [Megestrol] 40 mg PO QDAY 01/16/22 01/16/22 Unknown History polyethylene glycoL 3350 [Miralax 17 gm PO BID PRN 01/16/22 01/16/22 Unknown History 3350] Amiodarone [Cordarone 200 MG TAB] 200 mg PO QDAY #30 tab 01/19/22 Unknown Rx Pantoprazole [Protonix TAB] 40 mg PO BID #60 tablet 01/19/22 Unknown Rx amLODIPine 10 mg PO QDAY #30 tab 01/19/22 Unknown Rx carvediloL [Coreg] 6.25 mg PO BID #60 tab 01/19/22 Unknown Rx Ondansetron [Zofran ODT TAB] 8 mg PO Q8H PRN tab.rapdis 02/09/22 Unknown Rx Active Medications: Generic Name Dose Route Start Last Admin Trade Name Freq PRN Reason Stop Dose Admin Acetaminophen 650 mg 01/11/22 16:00 02/05/22 17:59 Acetaminophen 325 Mg Tab PO 650 mg Q4H PRN Administration Pain MILD(1-3)/Fever >100.5/ESQUIVEL Al Hydrox/Mg Hydrox/Simethicone 15 ml 01/27/22 05:25 02/08/22 20:58 Alum-Mag Hydroxide-Simethicone [phone]/5ml Oral Liqd 30 Ml PO 15 ml Q4H PRN Administration Indigestion Dextrose 50 ml 01/16/22 07:43 01/17/22 18:04 Dextrose 50% In Water (25gm) 50 Ml Syringe IV 10 ml Q30MIN PRN Administration Hypoglycemia Protocol Docusate Sodium 100 mg 01/22/22 11:00 02/08/22 21:01 Docusate Sodium 100 Mg Cap PO 100 mg BID CA Administration Epoetin Sushil-epbx 20,000 unit 01/23/22 12:00 02/08/22 11:47 Epoetin Sushil-Epbx 10,000 Unit/1 Ml Vial SUB-Q 20,000 unit JUANITO PRN Administration hemodialysis Hydralazine HCl 10 mg 01/16/22 07:45 01/20/22 21:57 Hydralazine 20 Mg/1 Ml Inj IV 10 mg Q4HR PRN Administration Hypertension Sodium Chloride 100 mls @ 999 mls/hr 01/19/22 23:03 Nacl 0.9% IV JUANITO PRN Hypotension Insulin Human Lispro 0 unit 01/18/22 16:30 02/08/22 21:02 Insulin Lispro 100 Unit/Ml SUB-Q Not Given ACHS [facility] Protocol Ondansetron HCl 4 mg 01/11/22 15:30 02/08/22 21:00 Ondansetron 4 Mg/2 Ml Inj IV 4 mg Q8H PRN Administration Nausea And Vomiting Ondansetron HCl 8 mg 01/24/22 11:54 01/24/22 13:20 Ondansetron 8 Mg Odt Tab PO 8 mg Q8H PRN Administration Nausea And Vomiting Pantoprazole Sodium 40 mg 01/20/22 10:00 02/08/22 21:01 Pantoprazole 40 Mg Tab PO 40 mg BID CA Administration Sodium Chloride 10 ml 01/11/22 22:00 02/08/22 21:04 Sodium Chloride 0.9% 10 Ml Flush Syringe IV 10 ml BID CA Administration Sodium Chloride 10 ml 01/11/22 16:00 Sodium Chloride 0.9% 10 Ml Flush Syringe IV PRN PRN LINE FLUSH
[2022-02-09] MEDS: INSULIN LISPRO 100 UNIT/ML SUB-Q SCH ×4 (10:18→22:25)
[2022-02-09] MEDS: DOCUSATE SODIUM 100 MG CAP PO SCH ×2 (10:18→21:45)
[2022-02-09] MEDS: PANTOPRAZOLE 40 MG TAB PO SCH ×2 (10:18→21:45)
--- NOTE | 2022-02-09 13:49 | Discharge Summary ---
Providers - Providers Date of Admission: 01/11/22 15:12 Date of discharge: 02/09/22 Attending physician: SANJEEV YOUNG 01/11/22 15:36 Consult to Physician [CONS] Routine Comment: Consulting Provider: DENILSON CUNNINGHAM Physician Instructions: Reason For Exam: Aortic Dissection--old 01/11/22 16:11 Consult to Physician [CONS] Routine Comment: Consulting Provider: NETO CHOW Physician Instructions: Reason For Exam: GI Bleed 01/12/22 13:42 Occupational Therapy Evaluate and Treat [CONS] Stat Comment: Eval and Treat Reason For Exam: Occupational Therapy Physical Therapy Evaluation and Treat [CONS] Stat Comment: Debility Reason For Exam: Physical Therapy 01/15/22 15:55 Consult to Physician [CONS] Routine Comment: called answ. serv. /esequiel Consulting Provider: ZAIRE MIRAMONTES Physician Instructions: Reason For Exam: Recurrent diverticular bleed, no source identified 01/30/22 14:39 Physical Therapy Evaluation and Treat [CONS] Routine Comment: Reason For Exam: Debility 01/31/22 12:03 Occupational Therapy Evaluate and Treat [CONS] Urgent Comment: Reason For Exam: placement in snf Primary care physician: [employer] Hospitalization Condition: Stable Hospital course: GI: LGIB, moderate protein calorie malnutrition/ Diverticulosis -GI, IR, surgery consulted, appreciate recommendations -Abdomen pelvis CT showed previous placement of thoracic aortic stent graft, 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 Collaterals presumably chronic, gallstones -S/p EGD and 01/12 which showed normal esophagus, mild erythematous mucosa in the antrum of of the body, biopsies obtained, normal duodenum, biopsies obtained and no source of GI bleeding found -S/p colonoscopy on 01/12 due to feeling poor quality however likely diverticular bleed -01/13 CTA abdomen/pelvis showed mild diverticular disease throughout the colon with endoluminal opacification of nearly all of the colon suggesting oral contrast however patient did have a history of oral contrast administration in addition To saturations would include carious excretion of contrast from the gallbladder however this appears out of proportion therefore hemorrhage should be considered, no clear source is identified, redemonstrated vascular disease without change -01/15 CTA abdomen/pelvis previous placement of thoracic aortic stent graft with 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 See report for details -General surgery recommendations noted. -If bleeding reoccur patient's only option is a total colectomy since patient is not a candidate for any angiography intervention due to history of aortic dissection. -Continue PPI, and continue to trend CBC -Advance diet as tolerated : ESRD on HD, h/o BPH -Nephrology consulted, appreciate recommendations -HD per nephrology -Monitor intake and output -Renally dose medications -Avoid nephrotoxic medications -Trend BMP Cardiac: h/o HTN, CABG x2, thoracic aortic aneurysm s/p repair -Hydralazine prn -Blood pressure monitoring per protocol Respiratory: Acute hypoxic respiratory failure -Supplemental oxygen as needed -SPO2 monitor per protocol -Pulmonary hygiene Endo: Hypoglycemia, h/o DM -probably due to NPO status -On D10w gtt -Plan to advance diet as tolerated -will D/C D10w gtt if patient tolerates PO intake. -Continue BG check ACHS -avoid hypoglycemia -Continue hypoglycemic protocol Heme: Acute on chronic anemia of chronic disease, GIB Acute blood loss anemia requiring multiple PRBC transfusion Patient is stable to be discharged to SNF today Disposition: 03 RETIREMENT FACILITY Final Discharge Diagnosis (Prints w/discharge instructions): GI bleeding diverticulosis. Moderate protein calorie malnutrition. End-stage renal disease on hemodialysis. History of BPH. Hypertension. History of CABG x2. History of thoracic aortic aneurysm status postrepair. Acute hypoxic respiratory failure improved. History of type 2 diabetes mellitus. Anemia of chronic disease. Acute blood loss anemia due to GI bleeding. Status post blood transfusion Core Measure Documentation - Palliative Care Palliative Care/ Comfort Measures: Not Applicable Exam - Constitutional Vitals: Temp Pulse Resp BP Pulse Ox 97.8 F 94 H 16 153/90 99 02/09/22 07:37 02/09/22 07:37 02/09/22 03:37 02/09/22 07:37 02/09/22 07:37 Plan Activity: advance as tolerated, fall precautions Follow up with: KRISTINE MERINO MD [Staff Physician] - 7 Days ZAIRE MIRAMONTES MD [Staff Physician] - 7 Days PRIMARY CARE, [Primary Care Provider] - 7 Days SHAE LUI MD [Staff Physician] - 7 Days Forms: Accompanied Note Prescriptions: amLODIPine 10 mg PO QDAY #30 tab Amiodarone [Cordarone 200 MG TAB] 200 mg PO QDAY #30 tab carvediloL [Coreg] 6.25 mg PO BID #60 tab Pantoprazole [Protonix TAB] 40 mg PO BID #60 tablet
--- NOTE | 2022-02-09 19:45 | Progress Note ---
Assessment and Plan Assessment and plan: This is a 62-year-old male with ESRD on HD, HTN, CABG x2, aortic dissection s/p thoracic aortic stent, BPH and DM admitted with GI bleeding ICU course to date: 01/15: Patient was transferred to ICU for closer monitoring yesterday afternoon after second episode of GI bleeding was noted and he had a repeat CTA abdomen/pelvis. Patient's hemoglobin dropped to 5 yesterday and was given 2 units PRBC. GI recommends obtaining another CTA if recurrence of GI bleeding noted. 01/16: Patient will get HD today and possibly 25 DC tomorrow. Added hydralazine as needed for hypertension. Started D10 drip due to persistent hypoglycemia. 01/17: Patient remains stable, no s/s of any active bleeding overnight. H&H is stable. Plan for repeat Colonoscopy today by GI. Continue D10w for hypoglycemia and trend CBC 01/18: s/p repeat colonoscopy, diverticuli noted throughout the colon but no evidence of any active bleeding. No bloody stools reported for over 48hrs, H&H and vital signs are stable. GI and general surgery recommendations noted. If bleeding reoccur patient's only option is a total colectomy since patient is not a candidate for any angiography intervention due to history of aortic dissection. Continue PPI, and continue to trend CBC. Advance diet as tolerated, will D/C D10w gtt if patient tolerates PO intake. Continue BG check ACHS, avoid hypoglycemia. Plan for HD today per Nephro. D/W CCM patient is stable for transfer to Telemetry. 01/19: Patient seen and examined clinically stable, discussed with surgery and also with all the specialties involved in the case.reviewed GI and Surgery notes. Patient not a candidate for any IR procedure. Surgery only option and a waiting next bleed if it happens. Even with bleeding in the past, hemodynamically patient has been stable. Also discussed with the sister and explained the clinical condition of findings she verbalized understanding plan at this time is for discharge of patient back to the facility 01/20: Late entry, awaiting discharge to facility. 01/21: Patient seen and examined, resting comfortable. No new compliant. No new Bleeding reported. H/H stable. 01/22: No new bleeding, awaiting placement, continue supportive care. 01/23: Continue supportive care. No further bleeding noted. Anticipate discharge in a.m. if placement is obtained In summary of visit the patient came in with rectal bleed requiring transfusion. GI evaluated the patient also diverticulosis. Surgery evaluated the patient no planned intervention at this time but if patient rebleeds will need a total colectomy. In the meantime patient is currently waiting for placement 01/24: Continue supportive care. Complaints of abdominal pain and some nausea this morning. Change Zofran to ODT. Continue pantoprazole. Discussed with case management regarding placement today. Case management will be following up with [facility] (where pt presented from) as to why patient cannot return back to facility. 01/25: No acute overnight issues. Awaiting placement. Discussed with CM. 01/26: No overnight events. Awaiting placement. Discussed with CM on rounds this AM. plan [facility]dialysis center vs home w/hhc. 01/27: No overnight events. Patient undergoing dialysis today. Difficulties placing this patient, original facility is not excepting this patient. Working with case management for resolution. 01/28: No overnight events. Awaiting placement and OP dialysis arrangements. 01/29: No overnight events. Awaiting placement and OP dialysis arrangements. 01/30: Elevated K= 6.1, ordered Kionex, insulin, d50, albuterol. Repeat BMP o rdered for 1500. Dialysis planned today. Placement and OP dialysis arrangements pending. -- Patient did not get accepted for SNF/[facility]. had peer to peer but denied. family planned for appeal. discharge pending on placement. clinically stable for dc Assessment and Plan GI: LGIB, moderate protein calorie malnutrition/ Diverticulosis -GI, IR, surgery consulted, appreciate recommendations -Abdomen pelvis CT showed previous placement of thoracic aortic stent graft, 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 Collaterals presumably chronic, gallstones -S/p EGD and 01/12 which showed normal esophagus, mild erythematous mucosa in the antrum of of the body, biopsies obtained, normal duodenum, biopsies obtained and no source of GI bleeding found -S/p colonoscopy on 01/12 due to feeling poor quality however likely diverticular bleed -01/13 CTA abdomen/pelvis showed mild diverticular disease throughout the colon with endoluminal opacification of nearly all of the colon suggesting oral contrast however patient did have a history of oral contrast administration in addition To saturations would include carious excretion of contrast from the gallbladder however this appears out of proportion therefore hemorrhage should be considered, no clear source is identified, redemonstrated vascular disease without change -01/15 CTA abdomen/pelvis previous placement of thoracic aortic stent graft with 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 See report for details -General surgery recommendations noted. -If bleeding reoccur patient's only option is a total colectomy since patient is not a candidate for any angiography intervention due to history of aortic dissection. -Continue PPI, and continue to trend CBC -Advance diet as tolerated : ESRD on HD, h/o BPH -Nephrology consulted, appreciate recommendations -HD per nephrology -Monitor intake and output -Renally dose medications -Avoid nephrotoxic medications -Trend BMP Cardiac: h/o HTN, CABG x2, thoracic aortic aneurysm s/p repair -Hydralazine prn -Blood pressure monitoring per protocol Respiratory: Acute hypoxic respiratory failure -Supplemental oxygen as needed -SPO2 monitor per protocol -Pulmonary hygiene Endo: Hypoglycemia, h/o DM -probably due to NPO status -On D10w gtt -Plan to advance diet as tolerated -will D/C D10w gtt if patient tolerates PO intake. -Continue BG check ACHS -avoid hypoglycemia -Continue hypoglycemic protocol Heme: Acute on chronic anemia of chronic disease, GIB -Presented with GI bleed -Multiple episodes of GI bleed noted throughout stay -S/p 5 unit prbc -h/h q 8 hours -Trend CBC -Transfuse hemoglobin less than 7 We will closely monitor the patient and adjust management as needed Plan of care reviewed with the patient and his nurse SNF placement family pain Patient will be discharged to SNF tomorrow if stable Case management processing safe discharge plan History Interval history: Patient was discharged this afternoon to go to SNF However due to social and technical reasons patient could not go today As per case management's note possible discharge tomorrow Pending COVID-19 test No new complaints No new events reported by nursing Vital signs reviewed Hospitalist Physical - Constitutional Vitals: Temp Pulse Resp BP Pulse Ox 98.3 F 92 H 18 153/89 100 02/09/22 15:42 02/09/22 15:42 02/09/22 10:00 02/09/22 15:42 02/09/22 15:42 General appearance: Present: no acute distress, cachectic, disheveled - EENT Eyes: Present: PERRL, EOM intact - Neck Neck: Present: supple, normal ROM - Respiratory Respiratory effort: normal Respiratory: bilateral: diminished, negative: rales, rhonchi, wheezing - Cardiovascular Rhythm: regular Heart Sounds: Present: S1 & S2 - Extremities Extremities: no ischemia, No edema - Abdominal General gastrointestinal: soft, non-tender, non-distended, normal bowel sounds - Integumentary Integumentary: Present: clear, warm - Psychiatric Psychiatric: appropriate mood/affect, cooperative - Neurologic Neurologic: CNII-XII intact, moves all extremities Results - Labs CBC & Chem 7: 01/30/22 05:57 02/04/22 07:58 Labs: Laboratory Last Values WBC 10.2 K/mm3 (4.5-11.0) 01/20/22 23:06 RBC 3.00 M/mm3 (3.65-5.03) L 01/20/22 23:06 Hgb 8.5 gm/dl (11.8-15.2) L 01/30/22 05:57 Hct 26.6 % (35.5-45.6) L 01/30/22 05:57 MCV 98 fl (84-94) H 01/20/22 23:06 MCH 30 pg (28-32) 01/20/22 23:06 MCHC 31 % (32-34) L 01/20/22 23:06 RDW 18.6 % (13.2-15.2) H 01/20/22 23:06 Plt Count 135 K/mm3 (140-440) L 01/20/22 23:06 Lymph % (Auto) 10.2 % (13.4-35.0) L 01/20/22 23:06 Evangeline % (Auto) 9.9 % (0.0-7.3) H 01/20/22 23:06 Eos % (Auto) 7.2 % (0.0-4.3) H 01/20/22 23:06 Baso % (Auto) 0.5 % (0.0-1.8) 01/20/22 23:06 Lymph # (Auto) 1.0 K/mm3 (1.2-5.4) L 01/20/22 23:06 Evangeline # (Auto) 1.0 K/mm3 (0.0-0.8) H 01/20/22 23:06 Eos # (Auto) 0.7 K/mm3 (0.0-0.4) H 01/20/22 23:06 Baso # (Auto) 0.0 K/mm3 (0.0-0.1) 01/20/22 23:06 Add Manual Diff Complete 01/11/22 13:02 Total Counted 100 01/11/22 13:02 Seg Neutrophils % 72.2 % (40.0-70.0) H 01/20/22 23:06 Seg Neuts % (Manual) 76.0 % (40.0-70.0) H 01/11/22 13:02 Band Neutrophils % 1.0 % 01/11/22 13:02 Lymphocytes % (Manual) 7.0 % (13.4-35.0) L 01/11/22 13:02 Reactive Lymphs % (Man) 0 % 01/11/22 13:02 Monocytes % (Manual) 5.0 % (0.0-7.3) 01/11/22 13:02 Eosinophils % (Manual) 11.0 % (0.0-4.3) H 01/11/22 13:02 Basophils % (Manual) 0 % (0.0-1.8) 01/11/22 13:02 Metamyelocytes % 0 % 01/11/22 13:02 Myelocytes % 0 % 01/11/22 13:02 Promyelocytes % 0 % 01/11/22 13:02 Blast Cells % 0 % 01/11/22 13:02 Nucleated RBC % Not Reportable 01/11/22 13:02 Seg Neutrophils # 7.3 K/mm3 (1.8-7.7) 01/20/22 23:06 Seg Neutrophils # Man 5.1 K/mm3 (1.8-7.7) 01/11/22 13:02 Band Neutrophils # 0.1 K/mm3 01/11/22 13:02 Lymphocytes # (Manual) 0.5 K/mm3 (1.2-5.4) L 01/11/22 13:02 Abs React Lymphs (Man) 0.0 K/mm3 01/11/22 13:02 Monocytes # (Manual) 0.3 K/mm3 (0.0-0.8) 01/11/22 13:02 Eosinophils # (Manual) 0.7 K/mm3 (0.0-0.4) H 01/11/22 13:02 Basophils # (Manual) 0.0 K/mm3 (0.0-0.1) 01/11/22 13:02 Metamyelocytes # 0.0 K/mm3 01/11/22 13:02 Myelocytes # 0.0 K/mm3 01/11/22 13:02 Promyelocytes # 0.0 K/mm3 01/11/22 13:02 Blast Cells # 0.0 K/mm3 01/11/22 13:02 WBC Morphology Not Reportable 01/11/22 13:02 Hypersegmented Neuts Not Reportable 01/11/22 13:02 Hyposegmented Neuts Not Reportable 01/11/22 13:02 Hypogranular Neuts Not Reportable 01/11/22 13:02 Smudge Cells Not Reportable 01/11/22 13:02 Toxic Granulation Not Reportable 01/11/22 13:02 Toxic Vacuolation Not Reportable 01/11/22 13:02 Dohle Bodies Not Reportable 01/11/22 13:02 Pelger-Huet Anomaly Not Reportable 01/11/22 13:02 Heri Rods Not Reportable 01/11/22 13:02 Platelet Estimate Consistent w auto 01/11/22 13:02 Clumped Platelets Not Reportable 01/11/22 13:02 Plt Clumps, EDTA Not Reportable 01/11/22 13:02 Large Platelets Not Reportable 01/11/22 13:02 Giant Platelets Not Reportable 01/11/22 13:02 Platelet Satelliting Not Reportable 01/11/22 13:02 Plt Morphology Comment Not Reportable 01/11/22 13:02 RBC Morphology Not Reportable 01/11/22 13:02 Dimorphic RBCs Not Reportable 01/11/22 13:02 Polychromasia Not Reportable 01/11/22 13:02 Hypochromasia 2+ 01/11/22 13:02 Poikilocytosis Not Reportable 01/11/22 13:02 Anisocytosis Not Reportable 01/11/22 13:02 Microcytosis Not Reportable 01/11/22 13:02 Macrocytosis 1+ 01/11/22 13:02 Spherocytes Not Reportable 01/11/22 13:02 Pappenheimer Bodies Not Reportable 01/11/22 13:02 Sickle Cells Not Reportable 01/11/22 13:02 Target Cells Not Reportable 01/11/22 13:02 Tear Drop Cells Not Reportable 01/11/22 13:02 Ovalocytes Not Reportable 01/11/22 13:02 Helmet Cells Not Reportable 01/11/22 13:02 [place] Bodies Not Reportable 01/11/22 13:02 [place] Rings Not Reportable 01/11/22 13:02 [place] Cells Not Reportable 01/11/22 13:02 Bite Cells Not Reportable 01/11/22 13:02 Crenated Cell Not Reportable 01/11/22 13:02 Elliptocytes Not Reportable 01/11/22 13:02 Acanthocytes (Spur) Not Reportable 01/11/22 13:02 Rouleaux Not Reportable 01/11/22 13:02 Hemoglobin C Crystals Not Reportable 01/11/22 13:02 Schistocytes Not Reportable 01/11/22 13:02 Malaria parasites Not Reportable 01/11/22 13:02 Jose Antonio Bodies Not Reportable 01/11/22 13:02 Hem Pathologist Commnt No 01/11/22 13:02 PT 15.8 Sec. (12.2-14.9) H 01/11/22 09:58 INR 1.13 (0.87-1.13) 01/11/22 09:58 Sodium 142 mmol/L (137-145) 02/04/22 07:58 Potassium 4.9 mmol/L (3.6-5.0) 02/04/22 07:58 Chloride 100.6 mmol/L (98-107) 02/04/22 07:58 Carbon Dioxide 29 mmol/L (22-30) 02/04/22 07:58 Anion Gap 17 mmol/L 02/04/22 07:58 BUN 24 mg/dL (9-20) H 02/04/22 07:58 Creatinine 4.0 mg/dL (0.8-1.3) H 02/04/22 07:58 Estimated GFR 19 ml/min 02/04/22 07:58 BUN/Creatinine Ratio 6 % 02/04/22 07:58 Glucose 71 mg/dL (75-100) L 02/04/22 07:58 POC Glucose 103 mg/dL (70-105) 02/09/22 15:44 Calcium 8.7 mg/dL (8.4-10.2) 02/04/22 07:58 Phosphorus 4.90 mg/dL (2.5-4.5) H 01/30/22 05:57 Magnesium 1.90 mg/dL (1.7-2.3) 01/16/22 04:07 Total Bilirubin 0.30 mg/dL (0.1-1.2) 01/18/22 04:32 AST 15 units/L (5-40) 01/18/22 04:32 ALT 13 units/L (7-56) 01/18/22 04:32 Alkaline Phosphatase 53 units/L (35-129) 01/18/22 04:32 Total Protein 5.3 g/dL (6.3-8.2) L 01/18/22 04:32 Albumin 3.0 g/dL (3.9-5) L 01/18/22 04:32 Albumin/Globulin Ratio 1.3 % 01/18/22 04:32 Lipase 19 units/L (13-60) 01/11/22 09:58 SARS-CoV-2 (PCR) Indeterminate (Negative) 02/09/22 15:10 Hepatitis A IgM Ab Non-reactive (NonReactive) 01/22/22 17:20 Hep Bs Antigen Non-reactive (Negative) 01/22/22 17:20 Hep B Core IgM Ab Non-reactive (NonReactive) 01/22/22 17:20 Hepatitis C Antibody Non-reactive (NonReactive) 01/22/22 17:20 Blood Type O POSITIVE 01/13/22 05:45 Antibody Screen Negative 01/13/22 05:45 Crossmatch See Detail 01/13/22 05:45 Breaux/IV: Voiding Method Urinal Active Medications - Current Medications Current Medications: Generic Name Dose Route Start Last Admin Trade Name Freq PRN Reason Stop Dose Admin Acetaminophen 650 mg 01/11/22 16:00 02/05/22 17:59 Acetaminophen 325 Mg Tab PO 650 mg Q4H PRN Administration Pain MILD(1-3)/Fever >100.5/ESQUIVEL Al Hydrox/Mg Hydrox/Simethicone 15 ml 01/27/22 05:25 02/08/22 20:58 Alum-Mag Hydroxide-Simethicone [phone]/[phone] Oral Liqd 30 Ml PO 15 ml Q4H PRN Administration Indigestion Dextrose 50 ml 01/16/22 07:43 01/17/22 18:04 Dextrose 50% In Water (25gm) 50 Ml Syringe IV 10 ml Q30MIN PRN Administration Hypoglycemia Protocol Docusate Sodium 100 mg 01/22/22 11:00 02/09/22 10:18 Docusate Sodium 100 Mg Cap PO 100 mg BID CA Administration Epoetin Sushil-epbx 20,000 unit 01/23/22 12:00 02/08/22 11:47 Epoetin Sushil-Epbx 10,000 Unit/1 Ml Vial SUB-Q 20,000 unit JUANITO PRN Administration hemodialysis Hydralazine HCl 10 mg 01/16/22 07:45 01/20/22 21:57 Hydralazine 20 Mg/1 Ml Inj IV 10 mg Q4HR PRN Administration Hypertension Sodium Chloride 100 mls @ 999 mls/hr 01/19/22 23:03 Nacl 0.9% IV JUANITO PRN Hypotension Insulin Human Lispro 0 unit 01/18/22 16:30 02/09/22 17:21 Insulin Lispro 100 Unit/Ml SUB-Q Not Given ACHS [facility] Protocol Ondansetron HCl 4 mg 01/11/22 15:30 02/08/22 21:00 Ondansetron 4 Mg/2 Ml Inj IV 4 mg Q8H PRN Administration Nausea And Vomiting Ondansetron HCl 8 mg 01/24/22 11:54 01/24/22 13:20 Ondansetron 8 Mg Odt Tab PO 8 mg Q8H PRN Administration Nausea And Vomiting Pantoprazole Sodium 40 mg 01/20/22 10:00 02/09/22 10:18 Pantoprazole 40 Mg Tab PO 40 mg BID CA Administration Sodium Chloride 10 ml 01/11/22 22:00 02/09/22 10:19 Sodium Chloride 0.9% 10 Ml Flush Syringe IV 10 ml BID CA Administration Sodium Chloride 10 ml 01/11/22 16:00 Sodium Chloride 0.9% 10 Ml Flush Syringe IV PRN PRN LINE FLUSH Nutrition/Malnutrition Assess - Dietary Evaluation Nutrition/Malnutrition Findings: Nutrition Notes Start: 01/12/22 15:00 Freq: Status: Active Protocol: Document 02/09/22 16:29 CM (Rec: 02/09/22 16:43 CM [id number]) Co-Sign 02/09/22 16:29 WW Nutrition Notes Need for Assessment generated from: Low BMI Initial or Follow up Assessment Current Diagnosis CKD (stage V CKD),Diabetes, Hypertension Other Pertinent Diagnosis GI bleed, volume overload, CABGx2, anemia Current Diet GI Soft Diet Labs/Tests 02/04 Labs: BUN 24 Cr 4.0 Glu POCT x 24hrs 71-138mg/dL Pertinent Medications 02/09: Reviewed Height 5 ft 8 in Weight 48.8 kg Usual Body Weight 63.6 kg [place] Body Weight (kg) 70.00 BMI 16.3 Intake Prior to Admission Good Weight change and time frame Unsure wt loss [employer] per malnutrition screening tool. Pt reported no wt loss and UBW of 140lbs 6mo ago - 24% loss from current BW. Last HD session 02/08. Weight Status Underweight Subjective/Other Information RD assessment for low BMI protocol. 100% diet consumed x 7 days per ADL notes. 75% of lunch consumed at time of visit. Nutrition-focused physical examination performed revealing mild muscle wasting. 24% weight difference within 6 months compared to pt report of UBW. Significant for mild malnutrition at this time. Pt discharge summary / packet in progress notes at this time . Percent of energy/protein needs met: GI soft diet provides 2000kcal / 82g PRO q day Burn Absent Trauma Absent GI Symptoms None Food Allergy No Skin Integrity/Comment Skin breakdown / Tim 16 Current % PO Good (75-100%) Minimum of two criteria No Interpretation of Weight Loss (severe) >10% in 6 months Fluid Accumulation N/A Reduced Color Maker Formulator Strength N/A (non-severe) Protein-Calorie Malnutrition N\A #3 Nutrition Diagnosis Malnutrition Comments: Mild in setting of chronic illness Etiology ESRD on HD As Evidenced by Signs and Symptoms 24% wt loss over the past 6 months compared to UBW #1 Nutrition Diagnosis Underweight Diagnosis Progress(for reassessment Continues documentation) Is patient on ventilator? No Is Patient Ambulatory and/or Out of Bed No REE-([place]-confined to bed) 1520.364 Kcal/Kg value to use for calculation 35 Approximate Energy Requirements Using 1708 kcal/Kg Calculation Used for Recommendations Jayesh Larkin Additional Notes Pro needs >1.2g/kg: >59g/day Fluid needs 1-1.5L/day Nutrition Intervention Change Diet Order: Continue current diet order Goal #1 PO intakes to meet at least 75 % energy and pro needs Anticipated Discharge Needs: Recommend Nepro BID for ESRD on HD maintenance post-d/c Revisit per MD consult or patient Sign Off request:
--- NOTE | 2022-02-10 08:43 | Progress Note ---
Assessment and Plan 1. ESRD: Patient is on maintenance hemodialysis, MWF schedule. Hemodialysis: 01/13, 01/16, 01/18, 01/19(UF only), 01/20, 01/21(UF only), 01/23, 01/25, 01/27, 01/30, 02/01, 02/03, 02/06, 02/08. HD today. 2. FEN: Volume overload, UF with HD as tolerated. Volume status is better. Limit fluid intake. Hyperkalemia, Kayexalate as needed, on HD. Monitor lytes and volume status. 3. 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 Collaterals presumably chronic, gallstones. S/p EGD and Colonoscopy. Suspect diverticular, recurrent episodes requiring several units of blood. Seen by General Surgery. Epogen with HD. PPI. 4. Acute hypoxic respiratory failure: Supplemental oxygen as needed. Volume control thru HD. Monitor. 5. DM with Hypoglycemia: Monitor. 6. Hypertension: Adjust meds as needed. Volume control. Monitor BP. Await Placement. Subjective: Patient was seen and examined at the bedside. Doing ok. Examination: General appearance: well-developed, appears stated age, not in distress HEENT: no icterus Neck: trachea midline Respiratory: ctab Heart: S1S2, regular, no murmur Abdomen: soft, bowel sounds heard, NT, no palpable mass Integumentary: LE stasis changes noted Neurologic: conversing, able to move extremities Ext: no edema Hemodialysis access: R IJ tunnel catheter Subjective Date of service: 02/10/22 Principal diagnosis: End-stage renal disease, gastrointestinal bleeding Objective - Vital Signs Vital signs: Vital Signs - 12hr 02/09/22 02/09/22 02/10/22 22:00 23:31 04:18 Temperature 97.8 F 98.0 F Pulse Rate 88 92 H Pulse Rate [ 95 H From Monitor] Respiratory 18 18 17 Rate Blood Pressure 152/95 167/101 O2 Sat by Pulse 99 99 99 Oximetry - Lab 01/30/22 05:57 02/04/22 07:58 Most recent lab results Calcium 8.7 mg/dL (8.4-10.2) 02/04/22 07:58 Phosphorus 4.90 mg/dL (2.5-4.5) H 01/30/22 05:57 Magnesium 1.90 mg/dL (1.7-2.3) 01/16/22 04:07 Medications & Allergies - Medications Allergies/Adverse Reactions: Allergies No Known Allergies Allergy (Verified 01/11/22 09:20) Home Medications: Home Medications Medication Instructions Recorded Confirmed Last Taken Type Tamsulosin [Flomax] 0.4 mg PO QDAY #30 cap 01/07/20 01/16/22 Unknown Rx Bacitracin Zinc Oint [Antibiotic 1 applicatio TP BID #1 tube 03/21/20 01/16/22 Unknown Rx Oint] Benzonatate [Tessalon Perles] 100 mg PO Q8HR PRN #20 capsule 03/21/20 01/16/22 Unknown Rx Acetaminophen [Tylenol] 325 mg PO Q6H PRN 01/16/22 01/16/22 Unknown History Atorvastatin [Lipitor] 80 mg PO QHS 01/16/22 01/16/22 Unknown History Calcium Acetate [Phoslo] 667 mg PO QDAY 01/16/22 01/16/22 Unknown History Ergocalciferol (Vitamin D2) 1,250 mcg PO QDAY 01/16/22 01/16/22 Unknown History [Drisdol] Glycerin/Propylene Glycol 30 ml OP QDAY PRN 01/16/22 01/16/22 Unknown History [Artificial Tears Drops] Insulin Lispro [Admelog] See Protocol SQ ACHS 01/16/22 01/16/22 Unknown History Lactobacillus Acidophilus 0.5 mg PO QDAY 01/16/22 01/16/22 Unknown History [Acidophilus Probiotic] Lactulose [Cephulac] 20 gm PO BID PRN 01/16/22 01/16/22 Unknown History Mag Hydrox/Aluminum Hyd/Simeth 10 ml PO QDAY 01/16/22 01/16/22 Unknown History [Mylanta Maximum Strength Pkt] Melatonin [Melatonin 5MG CAP] 5 mg PO QHS 01/16/22 01/16/22 Unknown History Torsemide [Demadex] 100 mg PO QDAY 01/16/22 01/16/22 Unknown History Vit B Comp No.3/Folic/C/Biotin 1 tab PO QDAY 01/16/22 01/16/22 Unknown History [Prisca-Theodore Rx Tablet] megestroL [Megestrol] 40 mg PO QDAY 01/16/22 01/16/22 Unknown History polyethylene glycoL 3350 [Miralax 17 gm PO BID PRN 01/16/22 01/16/22 Unknown History 3350] Amiodarone [Cordarone 200 MG TAB] 200 mg PO QDAY #30 tab 01/19/22 Unknown Rx Pantoprazole [Protonix TAB] 40 mg PO BID #60 tablet 01/19/22 Unknown Rx amLODIPine 10 mg PO QDAY #30 tab 01/19/22 Unknown Rx carvediloL [Coreg] 6.25 mg PO BID #60 tab 01/19/22 Unknown Rx Ondansetron [Zofran ODT TAB] 8 mg PO Q8H PRN tab.rapdis 02/09/22 Unknown Rx Active Medications: Generic Name Dose Route Start Last Admin Trade Name Freq PRN Reason Stop Dose Admin Acetaminophen 650 mg 01/11/22 16:00 02/05/22 17:59 Acetaminophen 325 Mg Tab PO 650 mg Q4H PRN Administration Pain MILD(1-3)/Fever >100.5/ESQUIVEL Al Hydrox/Mg Hydrox/Simethicone 15 ml 01/27/22 05:25 02/08/22 20:58 Alum-Mag Hydroxide-Simethicone 433-722-31xk/5ml Oral Liqd 30 Ml PO 15 ml Q4H PRN Administration Indigestion Dextrose 50 ml 01/16/22 07:43 01/17/22 18:04 Dextrose 50% In Water (25gm) 50 Ml Syringe IV 10 ml Q30MIN PRN Administration Hypoglycemia Protocol Docusate Sodium 100 mg 01/22/22 11:00 02/09/22 21:45 Docusate Sodium 100 Mg Cap PO 100 mg BID CA Administration Epoetin Sushil-epbx 20,000 unit 01/23/22 12:00 02/08/22 11:47 Epoetin Sushil-Epbx 10,000 Unit/1 Ml Vial SUB-Q 20,000 unit JUANITO PRN Administration hemodialysis Hydralazine HCl 10 mg 01/16/22 07:45 01/20/22 21:57 Hydralazine 20 Mg/1 Ml Inj IV 10 mg Q4HR PRN Administration Hypertension Sodium Chloride 100 mls @ 999 mls/hr 01/19/22 23:03 Nacl 0.9% IV JUANITO PRN Hypotension Insulin Human Lispro 0 unit 01/18/22 16:30 02/09/22 22:25 Insulin Lispro 100 Unit/Ml SUB-Q Not Given ACHS [facility] Protocol Ondansetron HCl 4 mg 01/11/22 15:30 02/08/22 21:00 Ondansetron 4 Mg/2 Ml Inj IV 4 mg Q8H PRN Administration Nausea And Vomiting Ondansetron HCl 8 mg 01/24/22 11:54 01/24/22 13:20 Ondansetron 8 Mg Odt Tab PO 8 mg Q8H PRN Administration Nausea And Vomiting Pantoprazole Sodium 40 mg 01/20/22 10:00 02/09/22 21:45 Pantoprazole 40 Mg Tab PO 40 mg BID CA Administration Sodium Chloride 10 ml 01/11/22 22:00 02/09/22 21:45 Sodium Chloride 0.9% 10 Ml Flush Syringe IV 10 ml BID CA Administration Sodium Chloride 10 ml 01/11/22 16:00 Sodium Chloride 0.9% 10 Ml Flush Syringe IV PRN PRN LINE FLUSH
--- NOTE | 2022-02-10 09:27 | Progress Note ---
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 Collaterals presumably chronic, gallstones -S/p EGD and 01/12 which showed normal esophagus, mild erythematous mucosa in the antrum of of the body, biopsies obtained, normal duodenum, biopsies obtained and no source of GI bleeding found -S/p colonoscopy on 01/12 due to feeling poor quality however likely diverticular bleed -01/13 CTA abdomen/pelvis showed mild diverticular disease throughout the colon with endoluminal opacification of nearly all of the colon suggesting oral contrast however patient did have a history of oral contrast administration in addition To saturations would include carious excretion of contrast from the gallbladder however this appears out of proportion therefore hemorrhage should be considered, no clear source is identified, redemonstrated vascular disease without change -01/15 CTA abdomen/pelvis previous placement of thoracic aortic stent graft with 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 See report for details -General surgery recommendations noted. -If bleeding reoccur patient's only option is a total colectomy since patient is not a candidate for any angiography intervention due to history of aortic dissection. -Continue PPI, and continue to trend CBC -Advance diet as tolerated : ESRD on HD, h/o BPH -Nephrology consulted, appreciate recommendations -HD per nephrology -Monitor intake and output -Renally dose medications -Avoid nephrotoxic medications -Trend BMP Cardiac: h/o HTN, CABG x2, thoracic aortic aneurysm s/p repair -Hydralazine prn -Blood pressure monitoring per protocol Respiratory: Acute hypoxic respiratory failure -Supplemental oxygen as needed -SPO2 monitor per protocol -Pulmonary hygiene Endo: Hypoglycemia, h/o DM -probably due to NPO status -On D10w gtt -Plan to advance diet as tolerated -will D/C D10w gtt if patient tolerates PO intake. -Continue BG check ACHS -avoid hypoglycemia -Continue hypoglycemic protocol Heme: Acute on chronic anemia of chronic disease, GIB -Presented with GI bleed -Multiple episodes of GI bleed noted throughout stay -S/p 5 unit prbc -h/h q 8 hours -Trend CBC -Transfuse hemoglobin less than 7 We will closely monitor the patient and adjust management as needed Plan of care reviewed with the patient and his nurse SNF placement family pain Patient will be discharged to SNF tomorrow if stable Case management processing safe discharge plan Hospitalist Physical - Constitutional Vitals: Temp Pulse Resp BP Pulse Ox 98.3 F 94 H 20 181/114 100 02/10/22 09:10 02/10/22 09:15 02/10/22 09:10 02/10/22 09:15 02/10/22 09:10 General appearance: Present: no acute distress, cachectic, disheveled Results - Labs CBC & Chem 7: 01/30/22 05:57 02/04/22 07:58 Labs: Laboratory Last Values WBC 10.2 K/mm3 (4.5-11.0) 01/20/22 23:06 RBC 3.00 M/mm3 (3.65-5.03) L 01/20/22 23:06 Hgb 8.5 gm/dl (11.8-15.2) L 01/30/22 05:57 Hct 26.6 % (35.5-45.6) L 01/30/22 05:57 MCV 98 fl (84-94) H 01/20/22 23:06 MCH 30 pg (28-32) 01/20/22 23:06 MCHC 31 % (32-34) L 01/20/22 23:06 RDW 18.6 % (13.2-15.2) H 01/20/22 23:06 Plt Count 135 K/mm3 (140-440) L 01/20/22 23:06 Lymph % (Auto) 10.2 % (13.4-35.0) L 01/20/22 23:06 [place] % (Auto) 9.9 % (0.0-7.3) H 01/20/22 23:06 Eos % (Auto) 7.2 % (0.0-4.3) H 01/20/22 23:06 Baso % (Auto) 0.5 % (0.0-1.8) 01/20/22 23:06 Lymph # (Auto) 1.0 K/mm3 (1.2-5.4) L 01/20/22 23:06 [place] # (Auto) 1.0 K/mm3 (0.0-0.8) H 01/20/22 23:06 Eos # (Auto) 0.7 K/mm3 (0.0-0.4) H 01/20/22 23:06 Baso # (Auto) 0.0 K/mm3 (0.0-0.1) 01/20/22 23:06 Add Manual Diff Complete 01/11/22 13:02 Total Counted 100 01/11/22 13:02 Seg Neutrophils % 72.2 % (40.0-70.0) H 01/20/22 23:06 Seg Neuts % (Manual) 76.0 % (40.0-70.0) H 01/11/22 13:02 Band Neutrophils % 1.0 % 01/11/22 13:02 Lymphocytes % (Manual) 7.0 % (13.4-35.0) L 01/11/22 13:02 Reactive Lymphs % (Man) 0 % 01/11/22 13:02 Monocytes % (Manual) 5.0 % (0.0-7.3) 01/11/22 13:02 Eosinophils % (Manual) 11.0 % (0.0-4.3) H 01/11/22 13:02 Basophils % (Manual) 0 % (0.0-1.8) 01/11/22 13:02 Metamyelocytes % 0 % 01/11/22 13:02 Myelocytes % 0 % 01/11/22 13:02 Promyelocytes % 0 % 01/11/22 13:02 Blast Cells % 0 % 01/11/22 13:02 Nucleated RBC % Not Reportable 01/11/22 13:02 Seg Neutrophils # 7.3 K/mm3 (1.8-7.7) 01/20/22 23:06 Seg Neutrophils # Man 5.1 K/mm3 (1.8-7.7) 01/11/22 13:02 Band Neutrophils # 0.1 K/mm3 01/11/22 13:02 Lymphocytes # (Manual) 0.5 K/mm3 (1.2-5.4) L 01/11/22 13:02 Abs React Lymphs (Man) 0.0 K/mm3 01/11/22 13:02 Monocytes # (Manual) 0.3 K/mm3 (0.0-0.8) 01/11/22 13:02 Eosinophils # (Manual) 0.7 K/mm3 (0.0-0.4) H 01/11/22 13:02 Basophils # (Manual) 0.0 K/mm3 (0.0-0.1) 01/11/22 13:02 Metamyelocytes # 0.0 K/mm3 01/11/22 13:02 Myelocytes # 0.0 K/mm3 01/11/22 13:02 Promyelocytes # 0.0 K/mm3 01/11/22 13:02 Blast Cells # 0.0 K/mm3 01/11/22 13:02 WBC Morphology Not Reportable 01/11/22 13:02 Hypersegmented Neuts Not Reportable 01/11/22 13:02 Hyposegmented Neuts Not Reportable 01/11/22 13:02 Hypogranular Neuts Not Reportable 01/11/22 13:02 Smudge Cells Not Reportable 01/11/22 13:02 Toxic Granulation Not Reportable 01/11/22 13:02 Toxic Vacuolation Not Reportable 01/11/22 13:02 Dohle Bodies Not Reportable 01/11/22 13:02 Pelger-Huet Anomaly Not Reportable 01/11/22 13:02 Heri Rods Not Reportable 01/11/22 13:02 Platelet Estimate Consistent w auto 01/11/22 13:02 Clumped Platelets Not Reportable 01/11/22 13:02 Plt Clumps, EDTA Not Reportable 01/11/22 13:02 Large Platelets Not Reportable 01/11/22 13:02 Giant Platelets Not Reportable 01/11/22 13:02 Platelet Satelliting Not Reportable 01/11/22 13:02 Plt Morphology Comment Not Reportable 01/11/22 13:02 RBC Morphology Not Reportable 01/11/22 13:02 Dimorphic RBCs Not Reportable 01/11/22 13:02 Polychromasia Not Reportable 01/11/22 13:02 Hypochromasia 2+ 01/11/22 13:02 Poikilocytosis Not Reportable 01/11/22 13:02 Anisocytosis Not Reportable 01/11/22 13:02 Microcytosis Not Reportable 01/11/22 13:02 Macrocytosis 1+ 01/11/22 13:02 Spherocytes Not Reportable 01/11/22 13:02 Pappenheimer Bodies Not Reportable 01/11/22 13:02 Sickle Cells Not Reportable 01/11/22 13:02 Target Cells Not Reportable 01/11/22 13:02 Tear Drop Cells Not Reportable 01/11/22 13:02 Ovalocytes Not Reportable 01/11/22 13:02 Helmet Cells Not Reportable 01/11/22 13:02 [place] Bodies Not Reportable 01/11/22 13:02 [place] Rings Not Reportable 01/11/22 13:02 Arianna Cells Not Reportable 01/11/22 13:02 Bite Cells Not Reportable 01/11/22 13:02 Crenated Cell Not Reportable 01/11/22 13:02 Elliptocytes Not Reportable 01/11/22 13:02 Acanthocytes (Spur) Not Reportable 01/11/22 13:02 Rouleaux Not Reportable 01/11/22 13:02 Hemoglobin C Crystals Not Reportable 01/11/22 13:02 Schistocytes Not Reportable 01/11/22 13:02 Malaria parasites Not Reportable 01/11/22 13:02 Jose Antonio Bodies Not Reportable 01/11/22 13:02 Hem Pathologist Commnt No 01/11/22 13:02 PT 15.8 Sec. (12.2-14.9) H 01/11/22 09:58 INR 1.13 (0.87-1.13) 01/11/22 09:58 Sodium 142 mmol/L (137-145) 02/04/22 07:58 Potassium 4.9 mmol/L (3.6-5.0) 02/04/22 07:58 Chloride 100.6 mmol/L (98-107) 02/04/22 07:58 Carbon Dioxide 29 mmol/L (22-30) 02/04/22 07:58 Anion Gap 17 mmol/L 02/04/22 07:58 BUN 24 mg/dL (9-20) H 02/04/22 07:58 Creatinine 4.0 mg/dL (0.8-1.3) H 02/04/22 07:58 Estimated GFR 19 ml/min 02/04/22 07:58 BUN/Creatinine Ratio 6 % 02/04/22 07:58 Glucose 71 mg/dL (75-100) L 02/04/22 07:58 POC Glucose 84 mg/dL (70-105) 02/10/22 07:37 Calcium 8.7 mg/dL (8.4-10.2) 02/04/22 07:58 Phosphorus 4.90 mg/dL (2.5-4.5) H 01/30/22 05:57 Magnesium 1.90 mg/dL (1.7-2.3) 01/16/22 04:07 Total Bilirubin 0.30 mg/dL (0.1-1.2) 01/18/22 04:32 AST 15 units/L (5-40) 01/18/22 04:32 ALT 13 units/L (7-56) 01/18/22 04:32 Alkaline Phosphatase 53 units/L (35-129) 01/18/22 04:32 Total Protein 5.3 g/dL (6.3-8.2) L 01/18/22 04:32 Albumin 3.0 g/dL (3.9-5) L 01/18/22 04:32 Albumin/Globulin Ratio 1.3 % 01/18/22 04:32 Lipase 19 units/L (13-60) 01/11/22 09:58 SARS-CoV-2 (PCR) Indeterminate (Negative) 02/09/22 15:10 Hepatitis A IgM Ab Non-reactive (NonReactive) 01/22/22 17:20 Hep Bs Antigen Non-reactive (Negative) 01/22/22 17:20 Hep B Core IgM Ab Non-reactive (NonReactive) 01/22/22 17:20 Hepatitis C Antibody Non-reactive (NonReactive) 01/22/22 17:20 Blood Type O POSITIVE 01/13/22 05:45 Antibody Screen Negative 01/13/22 05:45 Crossmatch See Detail 01/13/22 05:45 Breaux/IV: Voiding Method Urinal Active Medications - Current Medications Current Medications: Generic Name Dose Route Start Last Admin Trade Name Freq PRN Reason Stop Dose Admin Acetaminophen 650 mg 01/11/22 16:00 02/05/22 17:59 Acetaminophen 325 Mg Tab PO 650 mg Q4H PRN Administration Pain MILD(1-3)/Fever >100.5/ESQUIVEL Al Hydrox/Mg Hydrox/Simethicone 15 ml 01/27/22 05:25 02/08/22 20:58 Alum-Mag Hydroxide-Simethicone [id number]/5ml Oral Liqd 30 Ml PO 15 ml Q4H PRN Administration Indigestion Dextrose 50 ml 01/16/22 07:43 01/17/22 18:04 Dextrose 50% In Water (25gm) 50 Ml Syringe IV 10 ml Q30MIN PRN Administration Hypoglycemia Protocol Docusate Sodium 100 mg 01/22/22 11:00 02/09/22 21:45 Docusate Sodium 100 Mg Cap PO 100 mg BID CA Administration Epoetin Sushil-epbx 20,000 unit 01/23/22 12:00 02/08/22 11:47 Epoetin Sushil-Epbx 10,000 Unit/1 Ml Vial SUB-Q 20,000 unit JUANITO PRN Administration hemodialysis Hydralazine HCl 10 mg 01/16/22 07:45 01/20/22 21:57 Hydralazine 20 Mg/1 Ml Inj IV 10 mg Q4HR PRN Administration Hypertension Sodium Chloride 100 mls @ 999 mls/hr 01/19/22 23:03 Nacl 0.9% IV JUANITO PRN Hypotension Insulin Human Lispro 0 unit 01/18/22 16:30 02/09/22 22:25 Insulin Lispro 100 Unit/Ml SUB-Q Not Given ACHS [facility] Protocol Ondansetron HCl 4 mg 01/11/22 15:30 02/08/22 21:00 Ondansetron 4 Mg/2 Ml Inj IV 4 mg Q8H PRN Administration Nausea And Vomiting Ondansetron HCl 8 mg 01/24/22 11:54 01/24/22 13:20 Ondansetron 8 Mg Odt Tab PO 8 mg Q8H PRN Administration Nausea And Vomiting Pantoprazole Sodium 40 mg 01/20/22 10:00 02/09/22 21:45 Pantoprazole 40 Mg Tab PO 40 mg BID CA Administration Sodium Chloride 10 ml 01/11/22 22:00 02/09/22 21:45 Sodium Chloride 0.9% 10 Ml Flush Syringe IV 10 ml BID CA Administration Sodium Chloride 10 ml 01/11/22 16:00 Sodium Chloride 0.9% 10 Ml Flush Syringe IV PRN PRN LINE FLUSH Nutrition/Malnutrition Assess - Dietary Evaluation Nutrition/Malnutrition Findings: Nutrition Notes Start: 01/12/22 15:00 Freq: Status: Active Protocol: Document 02/09/22 16:29 CM (Rec: 02/09/22 16:43 CM [id number]) Co-Sign 02/09/22 16:29 WW Nutrition Notes Need for Assessment generated from: Low BMI Initial or Follow up Assessment Current Diagnosis CKD (stage V CKD),Diabetes, Hypertension Other Pertinent Diagnosis GI bleed, volume overload, CABGx2, anemia Current Diet GI Soft Diet Labs/Tests 02/04 Labs: BUN 24 Cr 4.0 Glu POCT x 24hrs 71-138mg/dL Pertinent Medications 02/09: Reviewed Height 5 ft 8 in Weight 48.8 kg Usual Body Weight 63.6 kg [place] Body Weight (kg) 70.00 BMI 16.3 Intake Prior to Admission Good Weight change and time frame Unsure wt loss [employer] per malnutrition screening tool. Pt reported no wt loss and UBW of 140lbs 6mo ago - 24% loss from current BW. Last HD session 02/08. Weight Status Underweight Subjective/Other Information RD assessment for low BMI protocol. 100% diet consumed x 7 days per ADL notes. 75% of lunch consumed at time of visit. Nutrition-focused physical examination performed revealing mild muscle wasting. 24% weight difference within 6 months compared to pt report of UBW. Significant for mild malnutrition at this time. Pt discharge summary / packet in progress notes at this time . Percent of energy/protein needs met: GI soft diet provides 2000kcal / 82g PRO q day Burn Absent Trauma Absent GI Symptoms None Food Allergy No Skin Integrity/Comment Skin breakdown / Tim 16 Current % PO Good (75-100%) Minimum of two criteria No Interpretation of Weight Loss (severe) >10% in 6 months Fluid Accumulation N/A Reduced Manufacturer Strength N/A (non-severe) Protein-Calorie Malnutrition N\A #3 Nutrition Diagnosis Malnutrition Comments: Mild in setting of chronic illness Etiology ESRD on HD As Evidenced by Signs and Symptoms 24% wt loss over the past 6 months compared to UBW #1 Nutrition Diagnosis Underweight Diagnosis Progress(for reassessment Continues documentation) Is patient on ventilator? No Is Patient Ambulatory and/or Out of Bed No REE-([place]-confined to bed) 1520.364 Kcal/Kg value to use for calculation 35 Approximate Energy Requirements Using 1708 kcal/Kg Calculation Used for Recommendations Jayesh Larkin Additional Notes Pro needs >1.2g/kg: >59g/day Fluid needs 1-1.5L/day Nutrition Intervention Change Diet Order: Continue current diet order Goal #1 PO intakes to meet at least 75 % energy and pro needs Anticipated Discharge Needs: Recommend Nepro BID for ESRD on HD maintenance post-d/c Revisit per MD consult or patient Sign Off request:
[2022-02-10] MEDS: INSULIN LISPRO 100 UNIT/ML SUB-Q SCH (11:40)
[2022-02-10] MEDS: EPOETIN ALFA-EPBX 10,000 UNIT/1 ML VIAL SUB-Q PRN (12:28)
[2022-02-10] MEDS: DOCUSATE SODIUM 100 MG CAP PO SCH (12:33)
[2022-02-10] MEDS: PANTOPRAZOLE 40 MG TAB PO SCH (12:34)
[2022-02-10 15:24] VITALS: BP 151/91
== END 2022-02-10 16:55 | DRG 377 ==
LOC: ED 09:16 → 3A 15:12 → CC1 01-14 18:57 → 4A 01-19 00:58
PROVIDERS: ADMIT Internal Medicine; ATTEND Internal Medicine
PROC: 0DB98ZX Excision of Duodenum, Via Natural or Artificial Opening Endoscopic, Diagnostic (ICD-10-PCS; 2022-01-12)
PROC: 0DB68ZX Excision of Stomach, Via Natural or Artificial Opening Endoscopic, Diagnostic (ICD-10-PCS; 2022-01-12)
PROC: 0DJD8ZZ Inspection of Lower Intestinal Tract, Via Natural or Artificial Opening Endoscopic (ICD-10-PCS; 2022-01-12)
PROC: 5A1D70Z Performance of Urinary Filtration, Intermittent, Less than 6 Hours Per Day (ICD-10-PCS; principal; 2022-01-13)
PROC: 30233N1 Transfusion of Nonautologous Red Blood Cells into Peripheral Vein, Percutaneous Approach (ICD-10-PCS; 2022-01-13)
PROC: 5A1D70Z Performance of Urinary Filtration, Intermittent, Less than 6 Hours Per Day (ICD-10-PCS; 2022-01-16)
PROC: 0DJD8ZZ Inspection of Lower Intestinal Tract, Via Natural or Artificial Opening Endoscopic (ICD-10-PCS; 2022-01-17)
PROC: 5A1D70Z Performance of Urinary Filtration, Intermittent, Less than 6 Hours Per Day (ICD-10-PCS; 2022-01-18)
PROC: 5A1D70Z Performance of Urinary Filtration, Intermittent, Less than 6 Hours Per Day (ICD-10-PCS; 2022-01-19)
PROC: 5A1D70Z Performance of Urinary Filtration, Intermittent, Less than 6 Hours Per Day (ICD-10-PCS; 2022-01-20)
PROC: 5A1D70Z Performance of Urinary Filtration, Intermittent, Less than 6 Hours Per Day (ICD-10-PCS; 2022-01-21)
PROC: 5A1D70Z Performance of Urinary Filtration, Intermittent, Less than 6 Hours Per Day (ICD-10-PCS; 2022-01-23)
PROC: 5A1D70Z Performance of Urinary Filtration, Intermittent, Less than 6 Hours Per Day (ICD-10-PCS; 2022-01-25)
PROC: 5A1D70Z Performance of Urinary Filtration, Intermittent, Less than 6 Hours Per Day (ICD-10-PCS; 2022-01-27)
PROC: 5A1D70Z Performance of Urinary Filtration, Intermittent, Less than 6 Hours Per Day (ICD-10-PCS; 2022-01-30)
PROC: 5A1D70Z Performance of Urinary Filtration, Intermittent, Less than 6 Hours Per Day (ICD-10-PCS; 2022-02-01)
PROC: 5A1D70Z Performance of Urinary Filtration, Intermittent, Less than 6 Hours Per Day (ICD-10-PCS; 2022-02-03)
PROC: 5A1D70Z Performance of Urinary Filtration, Intermittent, Less than 6 Hours Per Day (ICD-10-PCS; 2022-02-06)
PROC: 5A1D70Z Performance of Urinary Filtration, Intermittent, Less than 6 Hours Per Day (ICD-10-PCS; 2022-02-08)
PROC: 5A1D70Z Performance of Urinary Filtration, Intermittent, Less than 6 Hours Per Day (ICD-10-PCS; 2022-02-10)
DX: K57.31 Diverticulosis of large intestine without perforation or abscess with bleeding (principal); J96.01 Acute respiratory failure with hypoxia; N18.6 End stage renal disease; E44.0 Moderate protein-calorie malnutrition; I69.354 Hemiplegia and hemiparesis following cerebral infarction affecting left non-dominant side; I12.0 Hypertensive chronic kidney disease with stage 5 chronic kidney disease or end stage renal disease; D62 Acute posthemorrhagic anemia; I25.10 Atherosclerotic heart disease of native coronary artery without angina pectoris; Z20.822 Contact with and (suspected) exposure to COVID-19; E11.22 Type 2 diabetes mellitus with diabetic chronic kidney disease; N40.0 Benign prostatic hyperplasia without lower urinary tract symptoms; Z99.2 Dependence on renal dialysis; Z68.20 Body mass index [BMI] 20.0-20.9, adult; E87.70 Fluid overload, unspecified; E11.649 Type 2 diabetes mellitus with hypoglycemia without coma; E11.51 Type 2 diabetes mellitus with diabetic peripheral angiopathy without gangrene; E87.5 Hyperkalemia; Z82.49 Family history of ischemic heart disease and other diseases of the circulatory system; Z87.891 Personal history of nicotine dependence; Z95.1 Presence of aortocoronary bypass graft
CPT/HCPCS: 36415; 71045; 74174; 74177; 80048; 80053; 80074; 82962; 83690; 83735; 84100; 85007; 85014; 85018; 85025; 85027; 85610; 86850; 86900; 86901; 86920; 88305; 88342; 93005; 94760; 99285; G0378; J3490; J7070; Q9967; C9113; J0171; J0360; J0885; J1170; J1815; J2405; J2704; J7030; J7040; P9016; Q0162; U0003